=== PATIENT | male | born 1935 | race Caucasian/White ===

== ENCOUNTER 2016-09-30 10:42 | Inpatient (IN) | payer MEDICARE ==
[2016-09-30] MEDS ORDERED: RX INFO: IV CONTRAST WAS GIVEN 1 EACH MISC MISCELLANE PRN (11:09)
--- NOTE | 2016-09-30 11:14 | ED ---
General Adult HPI - General Chief complaint: Altered Mental Status Stated complaint: CONFUSION, UNABLE TO ANSWER PROPERLY Time Seen by Provider: 09/30/16 10:50 Source: family, RN notes reviewed Mode of arrival: wheelchair Limitations: no limitations - History of Present Illness Initial comments: This is a 80-year-old male presents emergency Department with a history of Parkinson's and TIAs. Patient had an onset of expressive aphasia approximately one hour prior to arrival. According to he was fine this morning when they went out to breakfast. However when they got home he was having a difficult time speaking and that remains at this time she also noticed that he was walking a little more off balance than normal kind of falling to one side a little. states she has notany facial droop patient denies any visual disturbance. Patient denies any chest pain palpitations difficulty breathing or shortness of breath per patient denies abdominal pain patient denies nausea vomiting or diarrhea per patient denies any recent fever chills or cough. Patient denies any recent injury or trauma. - Related Data Home Medications Medication Instructions Recorded Confirmed Carvedilol [Coreg] 25 mg PO BID 05/21/14 09/30/16 Cholecalciferol [Vitamin D3] 1,000 unit PO HS 05/21/14 09/30/16 Rosuvastatin Calcium [Crestor] 40 mg PO HS 05/21/14 09/30/16 Tamsulosin HCl [Flomax] 0.4 mg PO HS 05/21/14 09/30/16 cloNIDine HCL [Catapres] 0.05 mg PO BID 05/21/14 09/30/16 Famotidine [Pepcid] 20 mg PO HS 07/24/15 09/30/16 Montelukast [Singulair] 10 mg PO HS 09/19/15 09/30/16 [place]/APAP/Caf/Cod 52-150-09-30 2 cap PO Q4H PRN 08/20/16 09/30/16 [Fioricet w/Cod 44-518-88-30MG] Dorzolamide HCl/Timolol Maleat 1 drop LEFT EYE BID 08/20/16 09/30/16 [Cosopt Eye Drops] Krill/Om-3/Dha/Epa/Phospho/Ast 1 cap PO DAILY 08/20/16 09/30/16 [[place]-3 Krill Oil 300 mg Sfgl] Lactulose 10 gm PO BID PRN 08/20/16 09/30/16 Latanoprost [Xalatan 0.005%] 1 drop BOTH EYES HS 08/20/16 09/30/16 Loratadine [Claritin] 10 mg PO DAILY 08/20/16 09/30/16 Meloxicam [Mobic] 7.5 mg PO BID 08/20/16 09/30/16 Omeprazole 20 mg PO DAILY 08/20/16 09/30/16 Hydrochlorothiazide [Hydrodiuril] 25 mg PO DAILY 09/30/16 09/30/16 Losartan Potassium [Cozaar] 50 mg PO DAILY 09/30/16 09/30/16 Pramipexole [Mirapex] 1 mg PO BID 09/30/16 09/30/16 Previous Rx's Medication Instructions Recorded Bisacodyl [Dulcolax] 10 mg RECTAL DAILY PRN #20 supp 03/19/16 Clopidogrel [Plavix] 75 mg PO DAILY #30 tab 03/31/16 Melatonin 6 mg PO HS #60 tablet 03/31/16 Allergies Allergy/AdvReac Type Severity Reaction Status Date / Time oxycodone HCl AdvReac Nausea & Verified 09/30/16 11:29 [From OxyContin] Vomiting Review of Systems ROS Statement: Those systems with pertinent positive or pertinent negative responses have been documented in the HPI. ROS Other: All systems not noted in ROS Statement are negative. Past Medical History Past Medical History: Blood Disorder, Coronary Artery Disease (CAD), CVA/TIA, GERD/Reflux, Hypertension, Vascular Disorder Additional Past Medical History / Comment(s): migraines anemia BPH hypertension GERD coronary artery disease carotid stenosis migraines occipital neuralgia testis leg syndrome neuropathy History of Any Multi-Drug Resistant Organisms: None Reported Past Surgical History: Back Surgery, Heart Catheterization With Stent, Hernia Repair, Orthopedic Surgery Additional Past Surgical History / Comment(s): right knee replacement 06/19/15, both knees have been replaced Past Anesthesia/Blood Transfusion Reactions: No Reported Reaction Date of Last Stent Placement:: 2010 Past Psychological History: No Psychological Hx Reported Smoking Status: Never smoker Past Alcohol Use History: None Reported Past Drug Use History: None Reported - Past Family History Brother(s) Additional Family Medical History / Comment(s): Patient has 3 brothers with no major medical problems. Sister(s) Additional Family Medical History / Comment(s): Patient has 3 sisters that are all alive. 2 have high blood pressure. One has diabetes and stroke and is 81 years old. Son(s) Additional Family Medical History / Comment(s): Patient has 3 sons and one daughter with no major medical problems. Father Family Medical History: Myocardial Infarction ([place]) Additional Family Medical History / Comment(s): Father at age 73 with history of Parkinson's disease, bowel cancer, bone cancer. Mother Family Medical History: Myocardial Infarction ([place]) Additional Family Medical History / Comment(s): Mother at age 85 with history of hypertension and dementia. General Exam - General Exam Comments Initial Comments: GENERAL: Patient is well-developed and well-nourished. Patient is nontoxic and well- hydrated and is in no acute distress. ENT: Neck is soft and supple. No significant lymphadenopathy is noted. Oropharynx is clear. Moist mucous membranes. Neck has full range of motion without eliciting any pain. EYES: The sclera were anicteric and conjunctiva were pink and moist. Extraocular movements were intact and pupils were equal round and reactive to light. Eyelids were unremarkable. PULMONARY: Unlabored respirations. Good breath sounds bilaterally. No audible rales rhonchi or wheezing was noted. CARDIOVASCULAR: There is a regular rate and rhythm without any murmurs gallops or rubs. ABDOMEN: Soft and nontender with normal bowel sounds. No palpable organomegaly was noted. SKIN: Skin is clear with no lesions or rashes and otherwise unremarkable. NEUROLOGIC: Patient is alert and oriented unable to fully assess secondary to inability to speak but does appear to understand the questions. Cranial nerves II through XII are grossly intact. Motor and sensory are also intact. Patient has aphasia. Symmetrical smile. MUSCULOSKELETAL: Normal extremities with adequate strength and full range of motion. No lower extremity swelling or edema. No calf tenderness. LYMPHATICS: No significant lymphadenopathy is noted PSYCHIATRIC: Normal psychiatric evaluation. Normal interpersonal interactions appears functionally intact in deals appropriately with others. No signs of depression. No signs of anxiety. Limitations: no limitations Course Vital Signs 09/30/16 10:45 Temperature 97.3 F L Pulse Rate 66 Respiratory 18 Rate Blood Pressure 165/91 O2 Sat by Pulse 98 Oximetry Medical Decision Making - Medical Decision Making EKG shows normal sinus rhythm at 65 bpm. It was on an 82 QRS is 92 QT interval is 456 QTC is 474 per patient's EKG shows no ST segment elevation or depression or T-wave abdomen is noted. Computed tomography scan of the head showed no acute abnormality. CTA showed narrowing of the left internal carotid. Greater than 70% % which was increased from the last CTA I spoke with the neuro interventional states he did not want TPA at this time, the patient admitted he wanted cardiothoracic surgery on consult he wanted MRIs. I spoke with Dr. Chaudhry he agreed to admit the patient I wrote admitting orders - Lab Data Result diagrams: 09/30/16 11:10 09/30/16 11:10 Lab Results 09/30/16 09/30/16 09/30/16 Range/Units 11:10 11:10 11:10 WBC 3.7 L (3.8-10.6) k/uL RBC 4.03 L (4.30-5.90) m/uL Hgb 12.6 L (13.0-17.5) gm/dL Hct 37.0 L (39.0-53.0) % MCV 91.8 (80.0-100.0) fL MCH 31.2 (25.0-35.0) pg MCHC 34.0 (31.0-37.0) g/dL RDW 13.0 (11.5-15.5) % Plt Count 207 (150-450) k/uL Neutrophils % 61 % Lymphocytes % 24 % Monocytes % 8 % Eosinophils % 5 % Basophils % 1 % Neutrophils # 2.3 (1.3-7.7) k/uL Lymphocytes # 0.9 L (1.0-4.8) k/uL Monocytes # 0.3 (0-1.0) k/uL Eosinophils # 0.2 (0-0.7) k/uL Basophils # 0.0 (0-0.2) k/uL PT (9.0-12.0) sec INR (<1.1) APTT (22.0-30.0) sec Sodium 133 L (137-145) mmol/L Potassium 4.1 (3.5-5.1) mmol/L Chloride 98 (98-107) mmol/L Carbon Dioxide 24 (22-30) mmol/L Anion Gap 11 mmol/L BUN 22 H (9-20) mg/dL Creatinine 0.80 (0.66-1.25) mg/dL Est GFR (MDRD) Af Amer >60 (>60 ml/min/1.73 sqM) Est GFR (MDRD) Non-Af >60 (>60 ml/min/1.73 sqM) Glucose 107 H (74-99) mg/dL POC Glucose (mg/dL) (75-99) mg/dL POC Glu Horticultural Agent ID Calcium 9.3 (8.4-10.2) mg/dL Total Bilirubin 0.8 (0.2-1.3) mg/dL AST 26 (17-59) U/L ALT 31 (21-72) U/L Alkaline Phosphatase 103 (38-126) U/L Total Creatine Kinase 78 (55-170) U/L CK-MB (CK-2) 2.1 (0.0-2.4) ng/mL CK-MB (CK-2) Rel Index 2.7 Troponin I 0.012 (0.000-0.034) ng/mL Total Protein 6.3 (6.3-8.2) g/dL Albumin 3.8 (3.5-5.0) g/dL 09/30/16 09/30/16 Range/Units 11:10 11:34 WBC (3.8-10.6) k/uL RBC (4.30-5.90) m/uL Hgb (13.0-17.5) gm/dL Hct (39.0-53.0) % MCV (80.0-100.0) fL MCH (25.0-35.0) pg MCHC (31.0-37.0) g/dL RDW (11.5-15.5) % Plt Count (150-450) k/uL Neutrophils % % Lymphocytes % % Monocytes % % Eosinophils % % Basophils % % Neutrophils # (1.3-7.7) k/uL Lymphocytes # (1.0-4.8) k/uL Monocytes # (0-1.0) k/uL Eosinophils # (0-0.7) k/uL Basophils # (0-0.2) k/uL PT 11.2 (9.0-12.0) sec INR 1.1 (<1.1) APTT 24.9 (22.0-30.0) sec Sodium (137-145) mmol/L Potassium (3.5-5.1) mmol/L Chloride (98-107) mmol/L Carbon Dioxide (22-30) mmol/L Anion Gap mmol/L BUN (9-20) mg/dL Creatinine (0.66-1.25) mg/dL Est GFR (MDRD) Af Amer (>60 ml/min/1.73 sqM) Est GFR (MDRD) Non-Af (>60 ml/min/1.73 sqM) Glucose (74-99) mg/dL POC Glucose (mg/dL) 116 H (75-99) mg/dL POC Glu Horticultural Agent ID Branch, Marco Calcium (8.4-10.2) mg/dL Total Bilirubin (0.2-1.3) mg/dL AST (17-59) U/L ALT (21-72) U/L Alkaline Phosphatase (38-126) U/L Total Creatine Kinase (55-170) U/L CK-MB (CK-2) (0.0-2.4) ng/mL CK-MB (CK-2) Rel Index Troponin I (0.000-0.034) ng/mL Total Protein (6.3-8.2) g/dL Albumin (3.5-5.0) g/dL Critical Care Time Critical Care Time: Yes Total Critical Care Time: 35 Disposition Clinical Impression: CVA (cerebral vascular accident) Disposition: ADMITTED IP TO THIS [facility] Time of Disposition: 12:52
--- NOTE | 2016-09-30 11:35 | CT ---
EXAMINATION TYPE: CT brain wo con DATE OF EXAM: 09/30/2016 11:30 AM COMPARISON: 08/20/2016 INDICATION: Code Stroke DLP: 1047.10 mGycm, Automated exposure control for dose reduction was used. CONTRAST: None CT of the brain is performed utilizing 3 mm thick sections through the posterior fossa and 3 mm thick sections through the remaining calvarium. Study is performed within 24 hours of arrival to the hosp ital. No abnormal hyperdensity is present to suggest an acute intracranial hemorrhage. No mass lesion is evident. No acute infarcts are evident. There is periventricular white matter hypodensity compatible with patc hy chronic appearing white matter ischemic type changes. Ventricles and sulci are appropriate for the patient age. Paranasal sinuses and mastoid air cells within the [id number] are clear. IMPRESSIONS: 1. Atrophy with periventricular white matter ischemic changes. Exam appears stable from 08/20/2016.
[2016-09-30 11:36] LABS: Glucose,Whole Blood 116 mg/dL (75-99)
[2016-09-30 11:43] LABS: Basophils % (A) 1 %; CH 31.4; CHCM 34.4; Eosinophils # (A) 0.2 k/uL (0-0.7); Eosinophils % (A) 5 %; HGB 12.6 gm/dL (13.0-17.5); Luc # (Auto) 0.06; Luc % (Auto) 2; Lymphocytes # (A) 0.9 k/uL (1.0-4.8); Lymphocytes % (A) 24 %; MCH 31.2 pg (25.0-35.0); MCV 91.8 fL (80.0-100.0); Mean Platelet Volume 7.5; Monocytes # (A) 0.3 k/uL (0-1.0); Monocytes % (A) 8 %; Neutrophils # (A) 2.3 k/uL (1.3-7.7); Neutrophils % (A) 61 %; RBC 4.03 m/uL (4.30-5.90); WBC 3.7 k/uL (3.8-10.6); WBC (Perox) 3.91
[2016-09-30 11:58] LABS: INR 1.1 (<1.1)
[2016-09-30 11:59] LABS: Partial Thromboplastin Time 24.9 sec (22.0-30.0); Prothrombin Time 11.2 sec (9.0-12.0)
[2016-09-30] MEDS ORDERED: ACETAMINOPHEN IV (For NPO) 1,000 MG in SALINE 100 100ML.BAG IVPB STA (12:04)
--- NOTE | 2016-09-30 12:04 | CT ---
EXAMINATION TYPE: CT angio head neck DATE OF EXAM: 09/30/2016 11:57 AM COMPARISON: 03/29/2016 HISTORY: Neuro deficits, expressive aphasia CT DLP: 473.60 mGycm Automated exposure control for dose reduction was used. TECHNIQUE: Performed with IV Contrast, patient injected with 65 mL of Omnipaque 350. 3D reconstructed images are created on an independent workstation and reviewed.. FINDINGS: There is narrowing at the proximal right internal carotid artery. Based on the current measurements u tilizing NASCET criteria the degree of narrowing is estimated at 40%. There is milder narrowing at t he left internal carotid artery origin. Based on NASCET criteria the degree of narrowing appears to b e 20%. This however appears to be an underestimation based on the coronal reconstructed images. 3-D reconstructed images appear to have greater narrowing at the bifurcations. At the proximal right internal carotid artery this is estimated at 50% and at the left internal carotid artery origin there is a focal area measuring 72% narrowed. Vertebral arteries are patent. [place]: Vertebrobasilar system within the intracranial portion appears normal. Posterior ce rebral vasculature appears normal. The internal carotid arteries bifurcate normally into A1 and M1 se gments. A2 segments appear normal. Middle cerebral artery branches appear within normal limits. No ab rupt cut off is evident. The anterior communicating artery is patent. A 2 segments appear normal. IMPRESSION: 1. NARROWING OF THE PROXIMAL RIGHT INTERNAL CAROTID ARTERY APPROACHING 50%. CURRENT ESTIMATES APPEAR LESS THAN THE PRIOR EXAMINATION. 2. SIGNIFICANT , INCREASED NARROWING, AT THE PROXIMAL LEFT INTERNAL CAROTID ARTERY GREATER THAN 70% W HICH IS AN INCREASE FROM THE PRIOR STUDY. 3. [place] APPEARS WITHIN NORMAL LIMITS.
[2016-09-30] MEDS ORDERED: CLOPIDOGREL 75 MG TAB PO STA (12:19)
[2016-09-30] MEDS ORDERED: ATORVASTATIN 80 MG TAB PO STA (12:19)
[2016-09-30] MEDS ORDERED: ASPIRIN 325 MG TAB PO STA (12:19)
[2016-09-30 12:27] LABS: ALT 31 U/L (21-72); AST 26 U/L (17-59); Alkaline Phosphatase 103 U/L (38-126); Anion Gap 11 mmol/L; Blood Urea Nitrogen 22 mg/dL (9-20); Calcium 9.3 mg/dL (8.4-10.2); Carbon Dioxide 24 mmol/L (22-30); Chloride 98 mmol/L (98-107); Glucose 107 mg/dL (74-99); Non-African American GFR(MDRD) >60 (>60 ml/min/1.73 sqM); Potassium 4.1 mmol/L (3.5-5.1); Sodium 133 mmol/L (137-145); Total Bilirubin 0.8 mg/dL (0.2-1.3); Total Protein 6.3 g/dL (6.3-8.2)
[2016-09-30 12:39] LABS: Creatine Kinase MB 2.1 ng/mL (0.0-2.4); Troponin I 0.012 ng/mL (0.000-0.034)
--- NOTE | 2016-09-30 12:47 | XR ---
EXAMINATION TYPE: XR chest 2V DATE OF EXAM: 09/30/2016 12:39 PM COMPARISON: 03/29/2016 HISTORY: Altered mental status FINDINGS: The lungs are clear and there is no pneumothorax, pleural effusion, or focal pneumonia. Hypertrophi c and degenerative change of the spine noted. The heart is enlarged. Correlate for underlying COPD. Arthropathy of the shoulders seen. Rib cage def ormity in the left suggest remote trauma. IMPRESSION: 1. No acute process.
[2016-09-30] MEDS ORDERED: LACTULOSE 200 GM/300 ML (FROM 1/2 GAL JUG) PO PRN (13:23)
--- NOTE | 2016-09-30 13:23 | P.HPIM ---
History of Present Illness H&P Date: 09/30/16 Chief Complaint: Acute CVA. 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, patient was in his usual state of health until about today when he woke up in the morning was feeling fine and he took his to the general accountant and the stopped for breakfast together and went back home and patient was sitting and felt a bit weak went to lay down 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 Roa underwent CTA and computed tomography scan of the brain as well that showed a 70% stenosis of the left internal carotid artery the use the code stroke and utilized the telemedicine, was regular for patient not to pursue TPA at this point in time. He was given aspirin and he is scheduled to go for MRI of the brain with and without CAD. Patient will be admitted under our service neurology consultation will be obtained. Review of Systems Constitutional: Reports chronic headaches, Denies chills, Denies chronic pain, Denies lethargy, Denies malaise, Denies weakness, Denies weight gain, Denies weight loss Eyes: denies blurred vision, denies bulging eye, denies decreased vision, denies diplopia, denies discharge Ears: bilateral: decreased hearing Ears, nose, mouth and throat: Denies dysphagia, Denies neck lump, Denies swelling in throat, Denies sore throat Cardiovascular: Reports high blood pressure, Denies chest pain, Denies dyspnea on exertion, Denies phlebitis, Denies rapid heart beat, Denies shortness of breath, Denies syncope Respiratory: Denies congestion, Denies cough, Denies cough with sputum, Denies home oxygen, Denies sleep apnea, Denies snoring, Denies wheezing Gastrointestinal: Denies abdominal pain, Denies bloating, Denies BRBPR, Denies excessive gas, Denies melena, Denies nausea, Denies vomiting Genitourinary: Reports nocturia, Denies dysuria Musculoskeletal: Reports morning stiffness, Denies myalgias Musculoskeletal: absent: ankle pain, ankle stiffness, ankle swelling, elbow pain , elbow stiffness, elbow swelling, foot pain, foot stiffness, foot swelling, hand pain, hand stiffness, hand swelling, hip pain, hip stiffness, hip swelling , knee pain, knee stiffness, knee swelling, shoulder pain, shoulder stiffness, shoulder swelling, wrist pain, wrist stiffness, wrist swelling Integumentary: Denies pruritus, Denies rash Neurological: Denies numbness, Denies weakness Psychiatric: Denies anxiety, Denies depression Endocrine: Denies fatigue, Denies weight change Past Medical History Past Medical History: Blood Disorder, Coronary Artery Disease (CAD), CVA/TIA, GERD/Reflux, Hyperlipidemia, Hypertension, Neurologic Disorder, Osteoarthritis ( OA), Vascular Disorder Additional Past Medical History / Comment(s): migraines anemia BPH hypertension GERD coronary artery disease carotid stenosis migraines occipital neuralgia testis leg syndrome neuropathy History of Any Multi-Drug Resistant Organisms: None Reported Past Surgical History: Back Surgery, Heart Catheterization With Stent, Hernia Repair, Orthopedic Surgery Additional Past Surgical History / Comment(s): right knee replacement 06/19/15, both knees have been replaced, bilateral Surgery, EGD and colonoscopy 2010 and 2015, left heart catheterization with the PCI of the LAD 2012 Past Anesthesia/Blood Transfusion Reactions: No Reported Reaction Date of Last Stent Placement:: 2010 Past Psychological History: No Psychological Hx Reported Smoking Status: Never smoker Past Alcohol Use History: None Reported Past Drug Use History: None Reported - Past Family History Brother(s) Additional Family Medical History / Comment(s): Patient has 3 brothers with no major medical problems. Sister(s) Additional Family Medical History / Comment(s): Patient has 3 sisters that are all alive. 2 have high blood pressure. One has diabetes and stroke and is 81 years old. And all have history of tremors. Son(s) Additional Family Medical History / Comment(s): Patient has 3 sons and one daughter with no major medical problems. Father Family Medical History: Myocardial Infarction ([place]) Additional Family Medical History / Comment(s): Father at age 73 with history of Parkinson's disease, bowel cancer, bone cancer. Mother Family Medical History: Myocardial Infarction ([place]) Additional Family Medical History / Comment(s): Mother at age 85 with history of hypertension and dementia. Medications and Allergies Home Medications Medication Instructions Recorded Confirmed Type Carvedilol [Coreg] 25 mg PO BID 05/21/14 09/30/16 History Cholecalciferol [Vitamin D3] 1,000 unit PO HS 05/21/14 09/30/16 History Rosuvastatin Calcium [Crestor] 40 mg PO HS 05/21/14 09/30/16 History Tamsulosin HCl [Flomax] 0.4 mg PO HS 05/21/14 09/30/16 History cloNIDine HCL [Catapres] 0.05 mg PO BID 05/21/14 09/30/16 History Famotidine [Pepcid] 20 mg PO HS 07/24/15 09/30/16 History Montelukast [Singulair] 10 mg PO HS 09/19/15 09/30/16 History Buta/APAP/Caf/Cod 64-553-25-30 2 cap PO Q4H PRN 08/20/16 09/30/16 History [Fioricet w/Cod 36-706-08-30MG] Dorzolamide HCl/Timolol Maleat 1 drop LEFT EYE BID 08/20/16 09/30/16 History [Cosopt Eye Drops] Krill/Om-3/Dha/Epa/Phospho/Ast 1 cap PO DAILY 08/20/16 09/30/16 History [[place]-3 Krill Oil 300 mg Sfgl] Lactulose 10 gm PO BID PRN 08/20/16 09/30/16 History Latanoprost [Xalatan 0.005%] 1 drop BOTH EYES HS 08/20/16 09/30/16 History Loratadine [Claritin] 10 mg PO DAILY 08/20/16 09/30/16 History Meloxicam [Mobic] 7.5 mg PO BID 08/20/16 09/30/16 History Omeprazole 20 mg PO DAILY 08/20/16 09/30/16 History Hydrochlorothiazide [Hydrodiuril] 25 mg PO DAILY 09/30/16 09/30/16 History Losartan Potassium [Cozaar] 50 mg PO DAILY 09/30/16 09/30/16 History Pramipexole [Mirapex] 1 mg PO BID 09/30/16 09/30/16 History Allergies Allergy/AdvReac Type Severity Reaction Status Date / Time oxycodone HCl AdvReac Nausea & Verified 09/30/16 11:29 [From OxyContin] Vomiting Physical Exam - Constitutional General appearance: no acute distress, obese - EENT Eyes: anicteric sclerae, PERRLA, no ptosis, no scleral icterus, normal appearance ENT: hard of hearing, normal oropharynx, no thrush Ears: bilateral: normal - Neck Neck: no lymphadenopathy, normal ROM, no rigidity, no stridor, no thyromegaly Carotids: bilateral: upstroke delayed Thyroid: bilateral: normal size - Respiratory Respiratory: bilateral: diminished, negative: dullness, rales, rhonchi, wheezing , prolonged expiration, prolonged inspiration - Cardiovascular Rhythm: regular Heart sounds: normal: S1, S2 Abnormal Heart Sounds: no systolic murmur, no S3 Gallop, no S4 Gallop, no click - Gastrointestinal General gastrointestinal: normal bowel sounds, soft, no splenomegaly, no tenderness, no umbilical hernia, no ventral hernia - Genitourinary Male genitourinary: enlarged prostate - Integumentary Integumentary: normal, normal turgor - Neurologic Neurologic: CNII-XII intact - Musculoskeletal Musculoskeletal: gait normal, generalized weakness, strength equal bilaterally - Psychiatric Psychiatric: A&O x's 3, appropriate affect, intact judgment & insight Results CBC & Chem 7: 09/30/16 11:10 09/30/16 11:10 Thrombosis Risk Factor Assmnt - DVT/VTE Prophylaxis DVT/VTE Prophylaxis: Pharmacologic Prophylaxis ordered, Mechanical Prophylaxis ordered Assessment and Plan Plan: Assessment and plan: 1. Acute TIA/CVA. Telemetry, neuro check every 2 hours for the next 24 hours, CTA did show left internal carotid artery stenosis by 70%, aspirin 81 mg once every day, Plavix any 5 mg orally once every day, echo care gram, neurology consultation from Dr. Ayon. MRI of the brain with and without gadolinium. 2. CAD post-PCI of the LAD. Continue Coreg 25 mg orally twice every day, Plavix 75 mg orally once every day, Crestor 40 mg orally once every day. 3. Hypertension and hypertensive cardiovascular disease. Continue patient on losartan 50 mg orally once every day, HCTZ 25 mg orally once every day, Coreg 25 mg orally twice every day and clonidine 0.1 mg orally twice every day. 4. Hyperlipidemia. Continue Crestor 40 mg orally once every day. 5. Migraine headache. Continue with Fioricet with codeine. 6. Parkinson. Continue Mirapex 0.5 mg orally twice every day. 7. Enlarged prostate. Continue Flomax 0.4 g orally once every day. 8. Recurrent syncope. Possibly related to autonomic dysfunction. 9. Osteoarthritis post bilateral total knee arthroplasties. Discontinue Mobic. 10. Gastritis. Continue omeprazole 20 mg orally once every day. 11. DVT prophylaxis. Lovenox 40 mg subcutaneously every 24 hours. 12. GI prophylaxis. Continue Protonix 40 mg orally once every day. 13. Admit to inpatient. Estimate a length of stay 2 midnights. 14. Full code.
[2016-09-30] MEDS ORDERED: MORPHINE SULFATE 4 MG/ML SYRINGE IVP STA (13:26)
[2016-09-30] MEDS: SODIUM CHLORIDE 0.9% 1,000 ML IV SCH (13:29)
--- NOTE | 2016-09-30 15:17 | MR ---
EXAMINATION TYPE: MR brain wo/w con DATE OF EXAM: 09/30/2016 3:05 PM COMPARISON: 03/31/2016 HISTORY: Confusion, left sided weakness CONTRAST: Performed utilizing 20 mL intravenous MultiHance gadolinium contrast. TECHNIQUE: Multiplanar, multiecho imaging on a 3.0 [place] magnet is performed through the brain. Stud y is performed within 24 hours of arrival to the hospital. The craniovertebral junction is normal. The pituitary is normal. Diffusion-weighted imaging is performed. No abnormal hyperintensity is present to suggest an acute i ntracranial infarct or acute ischemic change. There are confluent periventricular white matter hyperintensities, compatible with chronic white genesis er ischemic changes. Some white matter change may be within the brainstem. Some perivascular changes may be present within the bilateral basal ganglion. Ventricles and sulci are somewhat prominent for the patient age. No abnormal enhancement is evident. IMPRESSIONS: 1. Chronic confluent periventricular white matter ischemic type changes. 2. No acute ischemic changes evident. 3. Examination is stable from March 2016
[2016-09-30] MEDS: BUTA/APAP/CAF/COD 50-325-40-30 CAP PO PRN ×2 (16:11→20:13)
[2016-09-30] MEDS: CARVEDILOL 12.5 MG TAB PO SCH (17:36)
--- NOTE | 2016-09-30 19:48 | P.CNNES ---
History of Present Illness Consult date: 09/30/16 Reason for Consult: Patient with possible stroke vs. TIA. History of Present Illness: This patient is a 80-year-old right-handed white male who was in his usual state of health until early today. He was at home and when he had gone into the kitchen area he was noticing he was having difficulty getting his words out. He was able to call for his who immediately came to us assistance. Apparently he was having evidence of expressive aphasia. He knew what he wanted to say but the words just were not coming out. He told his he felt something was just not right and wanted to go to the hospital. Patient was brought to the emergency room where he was evaluated in the ER by Dr. Roa. He underwent a code stroke evaluation and his NIH stroke scale was noted to be 2.0. His speech slowly did improve in the ER. The overall time frame for the evidence of expressive aphasia by the patient was about 1-2 hours duration. He was sent for a computed tomography scan of the brain which was negative for any evidence of acute stroke. Chronic white matter ischemic changes were noted. He underwent a CTA angiogram which revealed 70% stenosis of the left ICA and 50 % of the right ICA. The patient was evaluated by the neuro interventional us via the telemedicine robot. The computed tomography scan of the head and CTA results were reviewed by them. He was felt by the interventional neurologist not to be a TPA candidate. He was recommended to undergo MRI of the brain. MRI of the brain was completed today and reveals chronic complaint fluent white matter ischemic changes. No acute stroke was evident. MRI was stable compared to previous study done in March 2016. Patient has had no further recurrence of expressive aphasia. His clinical history is very consistent with TIA. We have recommended a vascular surgery consultation for evaluation of the CTA angiogram results. He has been taking Plavix on a regular basis 75 mg daily. We would recommend dual platelet therapy for him given this recent TIA and should combine the Plavix with one baby aspirin 81 mg daily. Patient states he is feeling much better since coming to the hospital. He has had no further recurrence of his speech impairment. He does have multiple other medical problems including history of Parkinson's disease and migraine headaches. He has been on treatment for both of these conditions as well. His neurological examination at this time is nonfocal. Neurology is now been consulted for further evaluation and recommendations. Review of Systems Constitutional: Denies chills, Denies fever Eyes: denies blurred vision, denies pain Ears, nose, mouth and throat: Denies headache, Denies sore throat Cardiovascular: Denies chest pain, Denies shortness of breath Respiratory: Denies cough Gastrointestinal: Denies abdominal pain, Denies diarrhea, Denies nausea, Denies vomiting Musculoskeletal: Denies myalgias Integumentary: Denies pruritus, Denies rash Neurological: Reports aphasia, Reports change in mentation, Reports change in speech, Reports headaches, Reports migraines, Denies numbness, Denies weakness Psychiatric: Denies anxiety, Denies depression Endocrine: Denies fatigue, Denies weight change Past Medical History Past Medical History: Blood Disorder, Coronary Artery Disease (CAD), Cancer, Chest Pain / Angina, CVA/TIA, GERD/Reflux, Hyperlipidemia, Hypertension, Neurologic Disorder, Osteoarthritis (OA), Syncope, Vascular Disorder Additional Past Medical History / Comment(s): migraines anemia BPH hypertension GERD coronary artery disease carotid stenosis migraines occipital uti,neuralgia RESTLESS leg syndrome, neuropathy.parkinsons,prostate cancer -had chemo- radiation,stroke 2005 and tia's x5,stress test 09-30-15,kidney stones, had pne vaccine after age 66 not sure of date. History of Any Multi-Drug Resistant Organisms: None Reported Past Surgical History: Back Surgery, Heart Catheterization With Stent, Hernia Repair, Orthopedic Surgery Additional Past Surgical History / Comment(s): right knee replacement 06/19/15, both knees have been replaced, bilateral Surgery, EGD and colonoscopy 2010 and 2015, left heart catheterization with the PCI of the LAD 2012,colonoscopy/egd, supraorbtal nerve percutaneous nerve stimulator trial 09-21-12,[facility] prostate bx,laser vaporization for prostate cancer, epidural steroid inj 2012 Past Anesthesia/Blood Transfusion Reactions: No Reported Reaction Date of Last Stent Placement:: 2010 Past Psychological History: No Psychological Hx Reported Smoking Status: Never smoker Past Alcohol Use History: None Reported Past Drug Use History: None Reported - Past Family History Brother(s) Additional Family Medical History / Comment(s): Patient has 3 brothers with no major medical problems. Sister(s) Additional Family Medical History / Comment(s): Patient has 3 sisters that are all alive. 2 have high blood pressure. One has diabetes and stroke and is 81 years old. And all have history of tremors. Son(s) Additional Family Medical History / Comment(s): Patient has 3 sons and one daughter with no major medical problems. Father Family Medical History: Myocardial Infarction ([place]) Additional Family Medical History / Comment(s): Father at age 73 with history of Parkinson's disease, bowel cancer, bone cancer. Mother Family Medical History: Myocardial Infarction ([place]) Additional Family Medical History / Comment(s): Mother at age 85 with history of hypertension and dementia. Medications and Allergies Home Medications Medication Instructions Recorded Confirmed Type Carvedilol [Coreg] 25 mg PO BID 05/21/14 09/30/16 History Cholecalciferol [Vitamin D3] 1,000 unit PO HS 05/21/14 09/30/16 History Rosuvastatin Calcium [Crestor] 40 mg PO HS 05/21/14 09/30/16 History Tamsulosin HCl [Flomax] 0.4 mg PO HS 05/21/14 09/30/16 History cloNIDine HCL [Catapres] 0.05 mg PO BID 05/21/14 09/30/16 History Famotidine [Pepcid] 20 mg PO HS 07/24/15 09/30/16 History Montelukast [Singulair] 10 mg PO HS 09/19/15 09/30/16 History Buta/APAP/Caf/Cod 65-587-97-30 2 cap PO Q4H PRN 08/20/16 09/30/16 History [Fioricet w/Cod 99-043-51-30MG] Dorzolamide HCl/Timolol Maleat 1 drop LEFT EYE BID 08/20/16 09/30/16 History [Cosopt Eye Drops] Krill/Om-3/Dha/Epa/Phospho/Ast 1 cap PO DAILY 08/20/16 09/30/16 History [[place]-3 Krill Oil 300 mg Sfgl] Lactulose 10 gm PO BID PRN 08/20/16 09/30/16 History Latanoprost [Xalatan 0.005%] 1 drop BOTH EYES HS 08/20/16 09/30/16 History Loratadine [Claritin] 10 mg PO DAILY 08/20/16 09/30/16 History Meloxicam [Mobic] 7.5 mg PO BID 08/20/16 09/30/16 History Omeprazole 20 mg PO DAILY 08/20/16 09/30/16 History Hydrochlorothiazide [Hydrodiuril] 25 mg PO DAILY 09/30/16 09/30/16 History Losartan Potassium [Cozaar] 50 mg PO DAILY 09/30/16 09/30/16 History Pramipexole [Mirapex] 1 mg PO BID 09/30/16 09/30/16 History Allergies Allergy/AdvReac Type Severity Reaction Status Date / Time oxycodone HCl AdvReac Nausea & Verified 09/30/16 11:29 [From OxyContin] Vomiting Physical Examination - Vital Signs Vital Signs: Vital Signs Temp Pulse Pulse Resp BP BP Pulse Ox 09/30/16 15:52 96.9 F L 67 17 190/89 96 09/30/16 15:09 178/94 09/30/16 15:05 97.5 F L 65 18 98 09/30/16 13:30 63 18 166/79 97 09/30/16 13:15 63 18 178/81 97 09/30/16 13:10 62 18 170/92 99 09/30/16 13:00 60 18 201/96 99 - Constitutional General appearance: average body habitus, cooperative - EENT EENT: PERRL, mucous membranes moist - Respiratory Respiratory: lungs clear, normal breath sounds - Cardiovascular Cardiovascular: regular rate, normal S1, normal S2 Extremities: no peripheral edema bilaterally - Gastrointestinal Gastrointestinal: normoactive bowel sounds - Integumentary Integumentary: normal - Neurologic Cranial nerve examination: PERRL, EOMI, V1/V2/V3 grossly intact, face symmetric , intact gag reflex, intact corneal reflex, normal palatal elevation Speech examination: intact Sensorimotor examination: intact Detailed motor examination: grossly full strength in all extremities Motor examination - right side: 5/5: biceps, triceps, wrist flexion, wrist extension, promotions officer, hip flexors, knee extensors, dorsiflexion, toe extension (EHL) , plantarflexion Motor examination - left side: 5/5: biceps, triceps, wrist flexion, wrist extension, promotions officer, hip flexors, knee extensors, dorsiflexion, toe extension (EHL) , plantarflexion Detailed sensory examination: intact Reflex and gait examination: intact Reflexes: 1+: ankle, bicep, knee, tricep - Musculoskeletal Musculoskeletal: no pain - Psychiatric Psychiatric: mood/affect appropriate, cooperative Results - Laboratory Findings CBC and BMP: 09/30/16 11:10 09/30/16 11:10 Assessment and Plan (1) TIA (transient ischemic attack) Status: Acute Code(s): G45.9 - TRANSIENT CEREBRAL ISCHEMIC ATTACK, UNSPECIFIED (2) Expressive aphasia Status: Acute Code(s): R47.01 - APHASIA (3) Parkinsons disease Status: Acute Code(s): G20 - PARKINSON'S DISEASE (4) Migraine headache Status: Acute Code(s): G43.909 - MIGRAINE, UNSP, NOT INTRACTABLE, WITHOUT STATUS MIGRAINOSUS Plan: This patient is a 80-year-old male admitted with acute episode of expressive aphasia. Entire episode lasted about 2 hours with complete resolution. He was brought into the emergency room at [facility] for further evaluation. He was seen in the ER by Dr. Roa. He underwent NIH stroke scale which was noted to be 2.0. Interventional neurology was contacted via the telemedicine robot. Computed tomography scan of the brain was negative for acute changes. CTA angiogram showed 70% stenosis of the left ICA. Patient was felt not to be a TPA candidate and was admitted to Hospital. His neurological examination at this time is nonfocal. This patient's clinical history is consistent with left hemispheric TIA. We have reviewed the CTA angiogram results with the patient today in detail. We would recommend vascular surgery consultation for further evaluation. Would recommend dual platelet therapy for this patient to combine Plavix 75 mg daily with one baby aspirin for secondary stroke prevention. We'll await further recommendations from vascular surgery. His overall prognosis at this time remains very guarded. We will continue close neurological follow-up for the patient during this admission. Time with Patient: Greater than 30
[2016-09-30] MEDS: cloNIDine HCL 0.1 MG TAB PO SCH (20:10)
[2016-09-30] MEDS: DORZOLAMIDE-TIMOLOL 2-0.5% DROPS 10 ML BTL LEFT EYE SCH (20:11)
[2016-09-30] MEDS: PRAMIPEXOLE 1 MG TAB PO SCH (20:11)
[2016-09-30] MEDS ORDERED: MELATONIN 3 MG TABLET PO SCH (21:00)
[2016-09-30] MEDS ORDERED: TAMSULOSIN 0.4 MG CAP.ER.24H PO SCH (21:00)
[2016-09-30] MEDS ORDERED: FAMOTIDINE 20 MG TAB PO SCH (21:00)
[2016-09-30] MEDS ORDERED: CHOLECALCIFEROL 1,000 UNIT TAB PO SCH (21:00)
[2016-09-30] MEDS ORDERED: MONTELUKAST 10 MG TAB PO SCH (21:00)
[2016-09-30] MEDS ORDERED: ATORVASTATIN 80 MG TAB PO SCH (21:00)
[2016-09-30] MEDS ORDERED: LATANOPROST 0.005% OPHTH DROPS 2.5 ML BTL BOTH EYES SCH (21:00)
--- NOTE | 2016-09-30 21:43 | US ---
EXAMINATION TYPE: US carotid duplex BILAT DATE OF EXAM: 09/30/2016 9:15 PM COMPARISON: Previous exam dated 30 March 2016 CLINICAL HISTORY: TIA x yesterday, carotid stenosis. EXAM MEASUREMENTS: RIGHT: Peak Systolic Velocity (PSV) cm/sec ----- Right CCA: 63.6 ----- Right ICA: 77.5 ----- Right ECA: 85.3 ICA/CCA ratio: 1.2 RIGHT: End Diastole cm/sec ----- Right CCA: 20.8 ----- Right ICA: 30.9 ----- Right ECA: 15.4 LEFT: Peak Systolic Velocity (PSV) cm/sec ----- Left CCA: 66.9 ----- Left ICA: 86.4 ----- Left ECA: 70.2 ICA/CCA ratio: 1.3 LEFT: End Diastole cm/sec ----- Left CCA: 25.2 ----- Left ICA: 29.2 ----- Left ECA: 12.0 VERTEBRALS (direction of flow): Right Vertebral: Antegrade Left Vertebral: Antegrade Bilateral wall thickening. No significant stenosis or elevated velocities seen. Plaque seen in left bulb extending into ICA. Plaque seen in right ECA. Grayscale, color Doppler, spectral Doppler imaging performed of the carotid arteries. IMPRESSION: No hemodynamic significant stenosis of the proximal internal carotid arteries bilaterally by Doppler criteria, and indirect measurement of carotid stenosis
[2016-10-01] MEDS: SODIUM CHLORIDE 0.9% 1,000 ML IV SCH ×2 (00:23→09:37)
[2016-10-01] MEDS: BUTA/APAP/CAF/COD 50-325-40-30 CAP PO PRN ×3 (00:23→13:25)
[2016-10-01] MEDS: CARVEDILOL 12.5 MG TAB PO SCH ×2 (06:19→16:39)
[2016-10-01 06:22] LABS: Basophils % (A) 1 %; CH 30.5; CHCM 32.4; Eosinophils # (A) 0.3 k/uL (0-0.7); Eosinophils % (A) 11 %; HDW 2.36; HGB 11.4 gm/dL (13.0-17.5); Luc # (Auto) 0.11; Luc % (Auto) 4; Lymphocytes # (A) 0.6 k/uL (1.0-4.8); Lymphocytes % (A) 21 %; MCH 30.8 pg (25.0-35.0); MCHC 32.6 g/dL (31.0-37.0); MCV 94.5 fL (80.0-100.0); Mean Platelet Volume 6.5; Monocytes # (A) 0.2 k/uL (0-1.0); Monocytes % (A) 9 %; Neutrophils # (A) 1.4 k/uL (1.3-7.7); Neutrophils % (A) 53 %; RDW 12.7 % (11.5-15.5); WBC 2.6 k/uL (3.8-10.6); WBC (Perox) 2.66
[2016-10-01 06:34] LABS: ALT 32 U/L (21-72); AST 21 U/L (17-59); Alkaline Phosphatase 86 U/L (38-126); Anion Gap 10 mmol/L; Blood Urea Nitrogen 17 mg/dL (9-20); Calcium 9.1 mg/dL (8.4-10.2); Carbon Dioxide 24 mmol/L (22-30); Chloride 103 mmol/L (98-107); Cholesterol 168 mg/dL (<200); Glucose 107 mg/dL (74-99); HDL Cholesterol 53 mg/dL (40-60); Non-African American GFR(MDRD) >60 (>60 ml/min/1.73 sqM); Potassium 4.2 mmol/L (3.5-5.1); Sodium 137 mmol/L (137-145); Total Bilirubin 0.6 mg/dL (0.2-1.3); Total Protein 5.5 g/dL (6.3-8.2); Triglycerides 100 mg/dL (<150)
[2016-10-01] MEDS ORDERED: PANTOPRAZOLE 40 MG TABLET PO SCH (07:30)
[2016-10-01] MEDS ORDERED: ASPIRIN 81 MG CHEW PO SCH (09:00)
[2016-10-01] MEDS ORDERED: HYDROCHLOROTHIAZIDE 50 MG TAB PO SCH (09:00)
[2016-10-01] MEDS ORDERED: ENOXAPARIN 40 MG/0.4 ML SYRINGE SQ SCH (09:00)
[2016-10-01] MEDS ORDERED: CLOPIDOGREL 75 MG TAB PO SCH (09:00)
[2016-10-01] MEDS ORDERED: LORATADINE 10 MG TAB PO SCH (09:00)
[2016-10-01] MEDS ORDERED: LOSARTAN 50 MG TAB PO SCH (09:00)
[2016-10-01] MEDS: cloNIDine HCL 0.1 MG TAB PO SCH (09:35)
[2016-10-01] MEDS: DORZOLAMIDE-TIMOLOL 2-0.5% DROPS 10 ML BTL LEFT EYE SCH (09:35)
[2016-10-01] MEDS: PRAMIPEXOLE 1 MG TAB PO SCH (09:36)
--- NOTE | 2016-10-01 09:53 | P.GSCN ---
History of Present Illness Consult date: 10/01/16 Reason for Consult: Carotid stenosis. Requesting physician: Onofre Chaudhry History of present illness: This is 80-year-old male with a previous history of this CAD with stent placement, hypertension, TIA/CVA, migraines, prostate cancer with chemo and radiation, Parkinson's disease, who presented from home after a period dysarthria and weakness. He states he also had a migraine-like headache but this was much worse. He denied any dizziness, chest pain, shortness of breath, and his dysarthria resolved while in the emergency room. While in the ER he did have CT of the brain as well as a CTA demonstrating 70% stenosis of the left internal carotid artery. A code stroke was called and interventional neurology felt the patient was not a candidate for TPA. He also had an MRI of the brain while in the ER. Neurology was consulted, and Dr. Marlow was consulted for carotid stenosis. Review of Systems Review of systems negative except as noted - Constitutional Reports fatigue - EENT Eyes: denies blurred vision, denies loss of vision Ears, nose, mouth and throat: Reports headache - Cardiovascular Cardiovascular Comment(s): Denies chest pain, shortness of breath, irregular heartbeat. - Gastrointestinal Gastrointestinal Comment(s): Denies abdominal pain. Tolerating diet. - Neurological Reports as per HPI, Reports aphasia, Reports headaches, Reports migraines Past Medical History Past Medical History: Blood Disorder, Coronary Artery Disease (CAD), Cancer, Chest Pain / Angina, CVA/TIA, GERD/Reflux, Hyperlipidemia, Hypertension, Neurologic Disorder, Osteoarthritis (OA), Syncope, Vascular Disorder Additional Past Medical History / Comment(s): migraines anemia BPH hypertension GERD coronary artery disease carotid stenosis migraines occipital uti,neuralgia RESTLESS leg syndrome, neuropathy.parkinsons,prostate cancer -had chemo- radiation,stroke 2005 and tia's x5,stress test 09-30-15,kidney stones, had pne vaccine after age 66 not sure of date. History of Any Multi-Drug Resistant Organisms: None Reported Past Surgical History: Back Surgery, Heart Catheterization With Stent, Hernia Repair, Orthopedic Surgery Additional Past Surgical History / Comment(s): right knee replacement 06/19/15, both knees have been replaced, bilateral Surgery, EGD and colonoscopy 2010 and 2015, left heart catheterization with the PCI of the LAD 2012,colonoscopy/egd, supraorbtal nerve percutaneous nerve stimulator trial 09-21-12,[facility] prostate bx,laser vaporization for prostate cancer, epidural steroid inj 2012 Past Anesthesia/Blood Transfusion Reactions: No Reported Reaction Date of Last Stent Placement:: 2010 Past Psychological History: No Psychological Hx Reported Smoking Status: Never smoker Past Alcohol Use History: None Reported Past Drug Use History: None Reported - Past Family History Brother(s) Additional Family Medical History / Comment(s): Patient has 3 brothers with no major medical problems. Sister(s) Additional Family Medical History / Comment(s): Patient has 3 sisters that are all alive. 2 have high blood pressure. One has diabetes and stroke and is 81 years old. And all have history of tremors. Son(s) Additional Family Medical History / Comment(s): Patient has 3 sons and one daughter with no major medical problems. Father Family Medical History: Myocardial Infarction ([place]) Additional Family Medical History / Comment(s): Father at age 73 with history of Parkinson's disease, bowel cancer, bone cancer. Mother Family Medical History: Myocardial Infarction ([place]) Additional Family Medical History / Comment(s): Mother at age 85 with history of hypertension and dementia. Medications and Allergies Home Medications Medication Instructions Recorded Confirmed Type Carvedilol [Coreg] 25 mg PO BID 05/21/14 09/30/16 History Cholecalciferol [Vitamin D3] 1,000 unit PO HS 05/21/14 09/30/16 History Rosuvastatin Calcium [Crestor] 40 mg PO HS 05/21/14 09/30/16 History Tamsulosin HCl [Flomax] 0.4 mg PO HS 05/21/14 09/30/16 History cloNIDine HCL [Catapres] 0.05 mg PO BID 05/21/14 09/30/16 History Famotidine [Pepcid] 20 mg PO HS 07/24/15 09/30/16 History Montelukast [Singulair] 10 mg PO HS 09/19/15 09/30/16 History Buta/APAP/Caf/Cod 50-241-16-30 2 cap PO Q4H PRN 08/20/16 09/30/16 History [Fioricet w/Cod 84-015-14-30MG] Dorzolamide HCl/Timolol Maleat 1 drop LEFT EYE BID 08/20/16 09/30/16 History [Cosopt Eye Drops] Krill/Om-3/Dha/Epa/Phospho/Ast 1 cap PO DAILY 08/20/16 09/30/16 History [[place]-3 Krill Oil 300 mg Sfgl] Lactulose 10 gm PO BID PRN 08/20/16 09/30/16 History Latanoprost [Xalatan 0.005%] 1 drop BOTH EYES HS 08/20/16 09/30/16 History Loratadine [Claritin] 10 mg PO DAILY 08/20/16 09/30/16 History Meloxicam [Mobic] 7.5 mg PO BID 08/20/16 09/30/16 History Omeprazole 20 mg PO DAILY 08/20/16 09/30/16 History Hydrochlorothiazide [Hydrodiuril] 25 mg PO DAILY 09/30/16 09/30/16 History Losartan Potassium [Cozaar] 50 mg PO DAILY 09/30/16 09/30/16 History Pramipexole [Mirapex] 1 mg PO BID 09/30/16 09/30/16 History Allergies Allergy/AdvReac Type Severity Reaction Status Date / Time oxycodone HCl AdvReac Nausea & Verified 09/30/16 11:29 [From OxyContin] Vomiting Surgical - Exam Vital Signs Temp Pulse Resp BP Pulse Ox 97.3 F L 66 18 165/91 98 09/30/16 10:45 09/30/16 10:45 09/30/16 10:45 09/30/16 10:45 09/30/16 10:45 - General Migraine-like headache remains, but patient states it is better. well developed, moderate pain - Eyes PERRL - ENT normal mucosa - Neck no masses, no bruits, trachea midline thyroid nodule: absent, carotid bruit: absent - Respiratory normal expansion, normal respiratory effort, clear to auscultation - Cardiovascular Normal sinus rhythm on the monitor Rhythm: regular Heart Sounds: normal: S1, S2 Abnormal Heart Sounds: no systolic murmur, no diastolic murmur, no rub, no S3 Gallop, no S4 Gallop, no click, no other - Abdomen Abdomen: soft, non tender, bowel sounds - Genitourinary Deferred - Rectum Deferred - Integumentary no rash, no growths - Neurologic normal coordination, normal sensation - Musculoskeletal normal gait - Psychiatric oriented to time, oriented to person Results - Labs 10/01/16 05:37 10/01/16 05:37 Abnormal Lab Results - Last 24 Hours (Table) 10/01/16 10/01/16 Range/Units 05:37 05:37 WBC 2.6 L (3.8-10.6) k/uL RBC 3.70 L (4.30-5.90) m/uL Hgb 11.4 L (13.0-17.5) gm/dL Hct 35.0 L (39.0-53.0) % Lymphocytes # 0.6 L (1.0-4.8) k/uL Glucose 107 H (74-99) mg/dL Total Protein 5.5 L (6.3-8.2) g/dL Albumin 3.2 L (3.5-5.0) g/dL Diabetes panel 10/01/16 Range/Units 05:37 Sodium 137 (137-145) mmol/L Potassium 4.2 (3.5-5.1) mmol/L Chloride 103 (98-107) mmol/L Carbon Dioxide 24 (22-30) mmol/L BUN 17 (9-20) mg/dL Creatinine 0.83 (0.66-1.25) mg/dL Glucose 107 H (74-99) mg/dL Calcium 9.1 (8.4-10.2) mg/dL AST 21 (17-59) U/L ALT 32 (21-72) U/L Alkaline Phosphatase 86 (38-126) U/L Total Protein 5.5 L (6.3-8.2) g/dL Albumin 3.2 L (3.5-5.0) g/dL Triglycerides 100 (<150) mg/dL HDL Cholesterol 53 (40-60) mg/dL Calcium panel 10/01/16 Range/Units 05:37 Calcium 9.1 (8.4-10.2) mg/dL Albumin 3.2 L (3.5-5.0) g/dL Pituitary panel 10/01/16 Range/Units 05:37 Sodium 137 (137-145) mmol/L Potassium 4.2 (3.5-5.1) mmol/L Chloride 103 (98-107) mmol/L Carbon Dioxide 24 (22-30) mmol/L BUN 17 (9-20) mg/dL Creatinine 0.83 (0.66-1.25) mg/dL Glucose 107 H (74-99) mg/dL Calcium 9.1 (8.4-10.2) mg/dL Adrenal panel 10/01/16 Range/Units 05:37 Sodium 137 (137-145) mmol/L Potassium 4.2 (3.5-5.1) mmol/L Chloride 103 (98-107) mmol/L Carbon Dioxide 24 (22-30) mmol/L BUN 17 (9-20) mg/dL Creatinine 0.83 (0.66-1.25) mg/dL Glucose 107 H (74-99) mg/dL Calcium 9.1 (8.4-10.2) mg/dL Total Bilirubin 0.6 (0.2-1.3) mg/dL AST 21 (17-59) U/L ALT 32 (21-72) U/L Alkaline Phosphatase 86 (38-126) U/L Total Protein 5.5 L (6.3-8.2) g/dL Albumin 3.2 L (3.5-5.0) g/dL - Imaging Additional studies: CTA reviewed. Assessment and Plan (1) Carotid stenosis Status: Acute (2) CVA (cerebral vascular accident) Status: Acute (3) Migraine headache Status: Acute (4) Cephalgia Status: Acute Plan: 1. Continue aspirin, Plavix, statin. 2. Maintain blood pressure control using Coreg, Cozaar. 3. Continue neuro checks. 4. Results of CTA and carotid Dopplers reviewed, will review plan with Dr. Pablo/Dr. Mendez. 5. Continue GI /DVT prophylaxis. Time with Patient: Greater than 30
--- NOTE | 2016-10-01 10:43 | ECHOF ---
Referral Reason:CVA MEASUREMENTS -------- HEIGHT: 165.1 cm WEIGHT: 96.2 kg BP: 149/79 RVIDd: 3.7 cm (< 3.3) IVSd: 1.4 cm (0.6 - 1.1) LVIDd: 4.5 cm (3.9 - 5.3) LVPWd: 1.3 cm (0.6 - 1.1) IVSs: 1.7 cm LVIDs: 3.0 cm LVPWs: 1.6 cm LA Diam: 4.7 cm (2.7 - 3.8) LAESV Index (A-L): 41.29 ml/m Ao Diam: 4.1 cm (2.0 - 3.7) AV Cusp: 1.5 cm (1.5 - 2.6) LA Diam: 4.2 cm (2.7 - 3.8) MV EXCURSION: 11.063 mm (> 18.000) MV EF SLOPE: 32 mm/s (70 - 150) EPSS: 0.7 cm MV E Shant: 0.50 m/s MV DecT: 194 ms MV A Shant: 1.05 m/s MV E/A Ratio: 0.48 AV maxP.69 mmHg AV meanP.68 mmHg RAP: 5.00 mmHg RVSP: 35.04 mmHg FINDINGS -------- Sinus rhythm. This was a technically good study. The left ventricular size is normal. There is moderate concentric left ventricular hypertrophy. Overall left ventricular systolic function is normal with, an EF between 60 - 65 %. The right ventricle is mildly enlarged. LA is severely dilated >40 ml/m2 The right atrium is normal in size. Aortic valve is trileaflet and is moderately thickened. Trace amount of aortic regurgitation. Peak/mean gradient across the Aortic Valve is 14.69mmHg / 7.68mmHg. The mitral valve leaflets are mildly thickened. Mild mitral annular calcification present. There is trace mitral regurgitation. Mild tricuspid regurgitation present. There is mild pulmonary hypertension. The right ventricular systolic pressure, as measured by Doppler, is 35.04mmHg. The pulmonic valve is normal. There is no pulmonic regurgitation present. The aortic root is dilated measuring 4.1cm. Normal inferior vena cava with normal inspiratory collapse consistent with estimated right atrial pressure of 5 mmHg. There is no pericardial effusion. CONCLUSIONS -------- 1. Sinus rhythm. 2. Trace amount of aortic regurgitation. 3. Peak/mean gradient across the Aortic Valve is 14.69mmHg / 7.68mmHg. 4. The mitral valve leaflets are mildly thickened. 5. Mild mitral annular calcification present. 6. There is trace mitral regurgitation. 7. Mild tricuspid regurgitation present. 8. There is mild pulmonary hypertension. 9. The right ventricular systolic pressure, as measured by Doppler, is 35.04mmHg. 10. The aortic root is dilated measuring 4.1cm. 11. Normal inferior vena cava with normal inspiratory collapse consistent with estimated right atrial pressure of 5 mmHg. 12. This was a technically good study. 13. There is no pericardial effusion. 14. The left ventricular size is normal. 15. There is moderate concentric left ventricular hypertrophy. 16. Overall left ventricular systolic function is normal with, an EF between 60 - 65 %. 17. The right ventricle is mildly enlarged. 18. LA is severely dilated >40 ml/m2 19. The right atrium is normal in size. 20. Aortic valve is trileaflet and is moderately thickened. [facility] PROGRAM COORDINATOR: Christopher Nick RDCS
[2016-10-01 12:27] VITALS: RESP 18; TEMP 97.6
[2016-10-01] MEDS ORDERED: ONDANSETRON 4 MG/2 ML VIAL IVP PRN (12:47)
--- NOTE | 2016-10-01 15:04 | CDI ---
In responding to this query, please exercise your independent professional judgment. The [facility] Coding Staff and Clinical Documentation Specialists appreciate your assistance in clarifying documentation, maintaining compliance with coding guidelines, accurately documenting patients condition and capturing severity of illness. The fact that a question is asked does not imply that any particular answer is desired or expected. Communication forms are a method of clarifying documentation and are not made part of the Legal Health Record. Thank you in advance for your clarification. Last Revision, November 2015 Kailyn Johnston [address] [facility] [place] [address] Documentation Clarification Form Date: 10/01/2016 2:40:00 PM From: Lacy Avitia Admit Date: 09/30/2016 12:52:00 PM Patient Name: Olmna Rivera Visit Number: [id number] Discharge Date: Dr. Kanwal Ayon TIA is documented as a diagnosis in the H&P and your consult Patient history/risk factors: Coronary artery disease, CVA/TIA, Hyperlipidemia, Hypertension, Carotid stenosis Clinical indicators: He was a home and was having difficulty getting his words out. He has expressive aphasia. Vital Signs: 165/91 66 18 97.3 98 % RA CT head: Negative for any evidence of acute stroke. Chronic white matter ischemic changes noted CT Anigogram revealed 70 % stenosis of the left ICA and 50 % of the right ICA. JULIA brain: chronic confluent periventricular white matter ischemic type changes. No acute ischemic changes evident Carotid US: No hemodynamic significant stenosis of the proximal internal carotid arteries bilaterally Echo: Sinus rhythm, Mild pulmonary hypertension. EF 60-65 % Treatment: Telemetry Plavix PO Baby ASA Neuro checks per orders Consult: In your professional opinion, please specify underlying etiology of the transient ischemic attack: Carotid Sinus Syncope Carotid Stenosis Hemorrhagic Stroke (if know specify specific location) Ischemic Stroke (if know specify cause, specific vessel/location, and laterality): Sequelae of Cerebrovascular Disease (specify Type of Cerebrovascular Disease ) Vertebo-Basilar Artery Syndrome Other (please specify): Etiology unknown or Unable to determine Please document in your progress notes and discharge summary in order to capture severity of illness and risk of mortality. Include clinical findings that support your diagnosis. FYI: Press F11 to launch patient chart Place X here if this finding has no clinical significance, is not applicable or if you are not able to provide any additional documentation. MTDD
[2016-10-01 15:48] VITALS: BP 136/72
[2016-10-01 16:01] VITALS: PULSE 60
--- NOTE | 2016-10-01 16:32 | P.GSCN ---
History of Present Illness History of present illness: 80-year-old male, with multiple recurrent problem history of TIA in the past he came with expressive aphasia with complete recovery he had a stroke workup and he was not a candidate for TPA were intervention neurologist Patient had a CTA of the carotid which showed left-sided 70% right side 50% stenosis and also had MRI which showed no change from the previous MRI and no acute stroke noted Past history patient has history of coronary artery disease hypertension hyperlipidemia history of migraine headache history of Parkinson's Surgical history patient has history see of prostrate with chemoradiation Neck examination neck is supple no bruit appreciated Chest examination chest is clear first and second sound normal Vascular examination brachial radial pulses are present femorals are present Central nervous system patient is oriented time and place normal motor function of both l extremities Impression is left carotid 70% right carotid 50% history of migraine headache history of parkinsonism patient is on antiplatelet therapy Plavix and aspirin we will discuss this case with the medicine and neurology to see physical candidate for surgical intervention we'll follow with you continue with antiplatelet therapy Past Medical History Past Medical History: Blood Disorder, Coronary Artery Disease (CAD), Cancer, Chest Pain / Angina, CVA/TIA, GERD/Reflux, Hyperlipidemia, Hypertension, Neurologic Disorder, Osteoarthritis (OA), Syncope, Vascular Disorder Additional Past Medical History / Comment(s): migraines anemia BPH hypertension GERD coronary artery disease carotid stenosis migraines occipital uti,neuralgia RESTLESS leg syndrome, neuropathy.parkinsons,prostate cancer -2012 -had chemo- radiation,stroke 2005 and tia's x5,stress test 09-30-15,kidney stones, had pne vaccine after age 66 not sure of date. History of Any Multi-Drug Resistant Organisms: None Reported Past Surgical History: Back Surgery, Heart Catheterization With Stent, Hernia Repair, Orthopedic Surgery Additional Past Surgical History / Comment(s): right knee replacement 06/19/15, both knees have been replaced, bilateral Surgery, EGD and colonoscopy 2010 and 2015, left heart catheterization with the PCI of the LAD 2012,colonoscopy/egd, supraorbtal nerve percutaneous nerve stimulator trial 09-21-12,severasl prostate bx,laser vaporization for prostate cancer, epidural steroid inj 2012 Past Anesthesia/Blood Transfusion Reactions: No Reported Reaction Date of Last Stent Placement:: 2010 Past Psychological History: No Psychological Hx Reported Smoking Status: Never smoker Past Alcohol Use History: None Reported Past Drug Use History: None Reported - Past Family History Brother(s) Additional Family Medical History / Comment(s): Patient has 3 brothers with no major medical problems. Sister(s) Additional Family Medical History / Comment(s): Patient has 3 sisters that are all alive. 2 have high blood pressure. One has diabetes and stroke and is 81 years old. And all have history of tremors. Son(s) Additional Family Medical History / Comment(s): Patient has 3 sons and one daughter with no major medical problems. Father Family Medical History: Myocardial Infarction (NM) Additional Family Medical History / Comment(s): Father at age 73 with history of Parkinson's disease, bowel cancer, bone cancer. Mother Family Medical History: Myocardial Infarction (NM) Additional Family Medical History / Comment(s): Mother at age 85 with history of hypertension and dementia. Medications and Allergies Home Medications Medication Instructions Recorded Confirmed Type Carvedilol [Coreg] 25 mg PO BID 05/21/14 09/30/16 History Cholecalciferol [Vitamin D3] 1,000 unit PO HS 05/21/14 09/30/16 History Rosuvastatin Calcium [Crestor] 40 mg PO HS 05/21/14 09/30/16 History Tamsulosin HCl [Flomax] 0.4 mg PO HS 05/21/14 09/30/16 History cloNIDine HCL [Catapres] 0.05 mg PO BID 05/21/14 09/30/16 History Famotidine [Pepcid] 20 mg PO HS 07/24/15 09/30/16 History Montelukast [Singulair] 10 mg PO HS 09/19/15 09/30/16 History Buta/APAP/Caf/Cod 46-232-69-30 2 cap PO Q4H PRN 08/20/16 09/30/16 History [Fioricet w/Cod 11-873-01-30MG] Dorzolamide HCl/Timolol Maleat 1 drop LEFT EYE BID 08/20/16 09/30/16 History [Cosopt Eye Drops] Krill/Om-3/Dha/Epa/Phospho/Ast 1 cap PO DAILY 08/20/16 09/30/16 History [[place]-3 Krill Oil 300 mg Sfgl] Lactulose 10 gm PO BID PRN 08/20/16 09/30/16 History Latanoprost [Xalatan 0.005%] 1 drop BOTH EYES HS 08/20/16 09/30/16 History Loratadine [Claritin] 10 mg PO DAILY 08/20/16 09/30/16 History Meloxicam [Mobic] 7.5 mg PO BID 08/20/16 09/30/16 History Omeprazole 20 mg PO DAILY 08/20/16 09/30/16 History Hydrochlorothiazide [Hydrodiuril] 25 mg PO DAILY 09/30/16 09/30/16 History Losartan Potassium [Cozaar] 50 mg PO DAILY 09/30/16 09/30/16 History Pramipexole [Mirapex] 1 mg PO BID 09/30/16 09/30/16 History Allergies Allergy/AdvReac Type Severity Reaction Status Date / Time oxycodone HCl AdvReac Nausea & Verified 09/30/16 11:29 [From OxyContin] Vomiting Surgical - Exam Vital Signs Temp Pulse Resp BP Pulse Ox 97.3 F L 66 18 165/91 98 09/30/16 10:45 09/30/16 10:45 09/30/16 10:45 09/30/16 10:45 09/30/16 10:45 Results - Labs 10/01/16 05:37 10/01/16 05:37 Abnormal Lab Results - Last 24 Hours (Table) 10/01/16 10/01/16 Range/Units 05:37 05:37 WBC 2.6 L (3.8-10.6) k/uL RBC 3.70 L (4.30-5.90) m/uL Hgb 11.4 L (13.0-17.5) gm/dL Hct 35.0 L (39.0-53.0) % Lymphocytes # 0.6 L (1.0-4.8) k/uL Glucose 107 H (74-99) mg/dL Total Protein 5.5 L (6.3-8.2) g/dL Albumin 3.2 L (3.5-5.0) g/dL Diabetes panel 10/01/16 Range/Units 05:37 Sodium 137 (137-145) mmol/L Potassium 4.2 (3.5-5.1) mmol/L Chloride 103 (98-107) mmol/L Carbon Dioxide 24 (22-30) mmol/L BUN 17 (9-20) mg/dL Creatinine 0.83 (0.66-1.25) mg/dL Glucose 107 H (74-99) mg/dL Calcium 9.1 (8.4-10.2) mg/dL AST 21 (17-59) U/L ALT 32 (21-72) U/L Alkaline Phosphatase 86 (38-126) U/L Total Protein 5.5 L (6.3-8.2) g/dL Albumin 3.2 L (3.5-5.0) g/dL Triglycerides 100 (<150) mg/dL HDL Cholesterol 53 (40-60) mg/dL Calcium panel 10/01/16 Range/Units 05:37 Calcium 9.1 (8.4-10.2) mg/dL Albumin 3.2 L (3.5-5.0) g/dL Pituitary panel 10/01/16 Range/Units 05:37 Sodium 137 (137-145) mmol/L Potassium 4.2 (3.5-5.1) mmol/L Chloride 103 (98-107) mmol/L Carbon Dioxide 24 (22-30) mmol/L BUN 17 (9-20) mg/dL Creatinine 0.83 (0.66-1.25) mg/dL Glucose 107 H (74-99) mg/dL Calcium 9.1 (8.4-10.2) mg/dL Adrenal panel 10/01/16 Range/Units 05:37 Sodium 137 (137-145) mmol/L Potassium 4.2 (3.5-5.1) mmol/L Chloride 103 (98-107) mmol/L Carbon Dioxide 24 (22-30) mmol/L BUN 17 (9-20) mg/dL Creatinine 0.83 (0.66-1.25) mg/dL Glucose 107 H (74-99) mg/dL Calcium 9.1 (8.4-10.2) mg/dL Total Bilirubin 0.6 (0.2-1.3) mg/dL AST 21 (17-59) U/L ALT 32 (21-72) U/L Alkaline Phosphatase 86 (38-126) U/L Total Protein 5.5 L (6.3-8.2) g/dL Albumin 3.2 L (3.5-5.0) g/dL
--- NOTE | 2016-10-01 18:25 | P.PN ---
Subjective This patient is a 80-year-old right-handed white male who was admitted to Hospital with symptoms yesterday of expressive aphasia. Patient was at home and had an episode in which she had word finding difficulties and expressive aphasia. He was brought into the emergency room where he was further evaluated. He underwent a computed tomography scan of the brain which was reported negative for acute changes. He was evaluated by the neuro interventional group and felt not to be a candidate for TPA. He underwent MRI of the brain which failed to reveal any acute stroke. The patient subscale he admitted to the hospital. He did undergo a CTA angiogram which did reveal a 70 % stenosis of the left internal carotid artery. Vascular surgery was consult for further evaluation. We are waiting there further recommendation. Patient continues to do well and has had no further recurrence of TIA like symptoms. At present he is to continue with dual platelet therapy with Plavix and aspirin. Patient continues to do well. We will await any further recommendations from vascular surgery regarding any further intervention. Case was discussed today at bedside with the patient and his as well as Dr. Londono who has reviewed his CTA angiogram and other vascular studies. At this time Dr. Londono is recommending conservative management with no further intervention for left carotid stenosis. Apparently he has had multiple episodes of similar TIA like symptoms over the last several years. Patient should continue on dual platelet therapy. Dr. Londono will be following up with the patient in the outpatient clinic in one week. Dr. Londono states the patient may be discharged home today. Neurologically he remains intact with no further recurrence of expressive aphasia. We did discuss the possibility of some of his symptoms being related to his migraine headaches. He'll be following up with his regular neurologist upon discharge. His overall prognosis at this time remains fair. Objective - Vital Signs Vital signs: Vital Signs Temp 97.6 F 10/01/16 15:47 Pulse 60 10/01/16 16:00 Resp 18 10/01/16 16:00 BP 136/72 10/01/16 15:47 Pulse Ox 97 10/01/16 15:47 Intake & Output 09/30/16 10/01/16 10/01/16 18:59 06:59 18:59 Intake Total 300 1780 600 Output Total 900 Balance 300 880 600 Weight 95 kg Intake: IV 300 1600 Sodium Chloride 0.9% 1, 300 1600 000 ml @ 100 mls/hr IV . Q10H [facility] Rx#:[id number] Oral 180 600 Output: Urine 900 - Exam Physical examination: PHYSICAL EXAMINATION: Patient is resting comfortably in bed. VITAL SIGNS: Blood pressure is [136/72]. Heart rate is [58]. Respiration is [18] . Temperature is [97.7]. HEENT: Head is atraumatic, neck is supple, there were no carotid bruits. CHEST: Lungs are clear to auscultation and percussion. CARDIAC: S1, S2 normal rate and rhythm. There is no murmur. ABDOMEN: Soft and nontender. Bowel sounds are present. EXTREMITIES: There is no pedal edema. Peripheral pulses are present. Neurological examination: Patient neurological examination is unchanged from yesterday. - Labs CBC & Chem 7: 10/01/16 05:37 10/01/16 05:37 Labs: Abnormal Lab Results - Last 24 Hours (Table) 10/01/16 10/01/16 Range/Units 05:37 05:37 WBC 2.6 L (3.8-10.6) k/uL RBC 3.70 L (4.30-5.90) m/uL Hgb 11.4 L (13.0-17.5) gm/dL Hct 35.0 L (39.0-53.0) % Lymphocytes # 0.6 L (1.0-4.8) k/uL Glucose 107 H (74-99) mg/dL Total Protein 5.5 L (6.3-8.2) g/dL Albumin 3.2 L (3.5-5.0) g/dL Assessment and Plan (1) TIA (transient ischemic attack) Status: Acute Code(s): G45.9 - TRANSIENT CEREBRAL ISCHEMIC ATTACK, UNSPECIFIED (2) Expressive aphasia Status: Acute Code(s): R47.01 - APHASIA (3) Parkinsons disease Status: Acute Code(s): G20 - PARKINSON'S DISEASE (4) Migraine headache Status: Acute Code(s): G43.909 - MIGRAINE, UNSP, NOT INTRACTABLE, WITHOUT STATUS MIGRAINOSUS Plan: This patient is a 80-year-old male who was initially admitted to hospital with episode of expressive aphasia. Patient had symptoms for at least 2 hours and this completely resolved. He was seen in the emergency room at which time he underwent a computed tomography scan of the brain as well as a CTA angiogram. CTA angiogram revealed evidence of 70% stenosis of the left internal carotid artery. He was sent for MRI of the brain which failed to reveal any evidence of acute stroke. Vascular surgery was consult to today for further evaluation. Dr. Londono is seen the patient and is recommending no further intervention as he is reviewed the CTA angiogram studies. He will follow-up in the outpatient vascular surgery clinic in one week. Patient is being considered for discharge home later today. He should continue on dual platelet therapy with Plavix and aspirin. His neurological exam at this time is nonfocal. His overall prognosis remains guarded. Case was discussed at length with the patient's and the patient at bedside. All their questions were answered. He should follow-up with his regular neurologist in 1 week after discharge.
--- NOTE | 2016-10-05 15:23 | P.DS ---
Providers Date of admission: 09/30/16 12:52 Expected date of discharge: 10/01/16 Attending physician: Chema Chaudhry Consults: 09/30/16 13:22 Consult Physician Urgent Consulting Provider: Basilia Ayon Consult Reason/Comments: CVA Do you want consulting provider notified?: Yes 10/01/16 10:12 Consult Physician Urgent Consulting Provider: Jose Londono Consult Reason/Comments: cartodid stenosis Do you want consulting provider notified?: Already Contacted Primary care physician: [facility] Course: 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, patient was in his usual state of health until about today when he woke up in the morning was feeling fine and he took his to the school health assistant and the stopped for breakfast together and went back home and patient was sitting and felt a bit weak went to lay down 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 Roa underwent CTA and computed tomography scan of the brain as well that showed a 70% stenosis of the left internal carotid artery the use the code stroke and utilized the telemedicine, was regular for patient not to pursue TPA at this point in time. He was given aspirin and he is scheduled to go for MRI of the brain with and without CAD. Patient will be admitted under our service neurology consultation will be obtained. 10/01: Dr. Londono is on consult as patient has a left carotid 70% and right carotid 50% stenosis with plan for follow-up in 1 week in the office. Patient also followed by neurology with recommendations to continue dual platelet therapy with Plavix and aspirin. Follow-up with Dr. Ayon in 1 week. MRI of the brain revealed chronic white matter ischemic changes, no acute ischemic changes evident.. Echocardiogram reveals trace aortic regurgitation, trace mitral regurgitation, mild tricuspid regurgitation, mild pulmonary hypertension , moderate concentric left ventricular hypertrophy, EF 60-65%. Discharge diagnoses: 1. Acute TIA possibly related to carotid stenosis 2. CAD post-PCI of the LAD. 3. Hypertension and hypertensive cardiovascular disease. 4. Hyperlipidemia. 5. Migraine headache. 6. Parkinson. 7. Enlarged prostate. 8. Recurrent syncope. Possibly related to autonomic dysfunction. 9. Osteoarthritis post bilateral total knee arthroplasties. 10. Gastritis. Discharge plan: Home with [facility] Impression and plan of care have been directed as dictated by the signing physician. Suly Gallo nurse practitioner acting as scribe for signing physician. Patient Condition at Discharge: Good Plan - Discharge Summary Discharge Medication List Carvedilol [Coreg] 25 mg PO BID 05/21/14 [History] cloNIDine HCL [Catapres] 0.1 mg PO DAILY 05/21/14 [History] Famotidine [Pepcid] 20 mg PO HS 07/24/15 [History] Montelukast [Singulair] 10 mg PO HS 09/19/15 [History] Clopidogrel [Plavix] 75 mg PO DAILY #30 tab 03/31/16 [Rx] Melatonin 6 mg PO HS #60 tablet 03/31/16 [Rx] Buta/APAP/Caf/Cod 64-155-52-30 [Fioricet w/Cod 19-683-83-30MG] 2 cap PO Q4H PRN 08/20/16 [History] Dorzolamide HCl/Timolol Maleat [Cosopt Eye Drops] 1 drop LEFT EYE BID 08/20/16 [ History] Krill/Om-3/Dha/Epa/Phospho/Ast [[place]-3 Krill Oil 300 mg Sfgl] 1 cap PO DAILY [History] Lactulose 10 gm PO BID PRN 08/20/16 [History] Latanoprost [Xalatan 0.005%] 1 drop BOTH EYES HS 08/20/16 [History] Loratadine [Claritin] 10 mg PO DAILY 08/20/16 [History] Meloxicam [Mobic] 7.5 mg PO BID PRN 08/20/16 [History] Omeprazole 20 mg PO DAILY 08/20/16 [History] Hydrochlorothiazide [Hydrodiuril] 25 mg PO DAILY 09/30/16 [History] Losartan Potassium [Cozaar] 50 mg PO DAILY 09/30/16 [History] Pramipexole [Mirapex] 1 mg PO BID 09/30/16 [History] Aspirin 81 mg PO DAILY chew 10/01/16 [Rx] Follow up Appointment(s)/Referral(s): Kanwal Ayon MD [STAFF PHYSICIAN] - 1 Week (Call to make follow up appt next week) Louis Lawson MD [Primary Care Provider] - 10/08/16 11:00 am (Appointment with nurse practioner) Jose Londono MD [STAFF PHYSICIAN] - 1 Week (Call to make follow up appt next week) Patient Instructions/Handouts: Migraine Headache (GEN), Ischemic Stroke (DC) Discharge Disposition: HOME WITH HOME HEALTH SERVICES
== END 2016-10-01 18:41 | disposition home health service (06) | DRG 68 ==
LOC: EC 10:42 → 6SEL 12:52
PROVIDERS: ADMIT Internal Medicine; ATTEND Internal Medicine
DX: I65.22 Occlusion and stenosis of left carotid artery (principal); G20 Parkinson's disease; I11.9 Hypertensive heart disease without heart failure; M54.81 Occipital neuralgia; M47.816 Spondylosis without myelopathy or radiculopathy, lumbar region; M47.814 Spondylosis without myelopathy or radiculopathy, thoracic region; G62.9 Polyneuropathy, unspecified; R29.702 NIHSS score 2; G43.909 Migraine, unspecified, not intractable, without status migrainosus; I25.10 Atherosclerotic heart disease of native coronary artery without angina pectoris; K21.9 Gastro-esophageal reflux disease without esophagitis; E78.5 Hyperlipidemia, unspecified; N40.0 Benign prostatic hyperplasia without lower urinary tract symptoms; K29.70 Gastritis, unspecified, without bleeding; M19.90 Unspecified osteoarthritis, unspecified site; G25.81 Restless legs syndrome; Z85.46 Personal history of malignant neoplasm of prostate; Z79.82 Long term (current) use of aspirin; Z82.3 Family history of stroke; Z95.5 Presence of coronary angioplasty implant and graft; Z96.653 Presence of artificial knee joint, bilateral; Z87.442 Personal history of urinary calculi; Z86.73 Personal history of transient ischemic attack (TIA), and cerebral infarction without residual deficits
CPT/HCPCS: 36415; 70450; 70496; 70498; 70553; 71020; 80053; 80061; 82550; 82553; 83090; 84484; 85025; 85610; 85730; 93005; 93306; 93880; 96361; 96365; 96375; 99291

== ENCOUNTER 2016-10-02 14:27 | Emergency (ER) | payer MEDICARE ==
[2016-10-02 14:34] VITALS: RESP 18
[2016-10-02] MEDS ORDERED: SODIUM CHLORIDE 0.9% 1,000 ML IV ONE (14:55)
--- NOTE | 2016-10-02 15:21 | ED ---
General Adult HPI - General Chief complaint: Altered Mental Status Stated complaint: migraine Time Seen by Provider: 10/02/16 14:36 Source: patient, EMS Mode of arrival: EMS Limitations: altered mental status - History of Present Illness Initial comments: This 80-year-old white male presents with a complaint of some expressive aphasia. Per the , this occurred at approximately 1:30 PM and lasted a few minutes. He apparently was just hospitalized 2 days ago for the same. At that time he had a full workup which did include carotid Dopplers and this showed 70 % stenosis on the left side and 50% on the right. He was evaluated by vascular in neurology and apparently they recommended nonsurgical treatment. He's been taking aspirin as well as Plavix. He did not take his aspirin yet today. He has no complaints at this time other than his chronic migraine headache. He apparently has headaches every day for the last 20 years. He does present via EMS and states that they gave him something and route and his headache is improved. He denies any lateralized weakness but does feel somewhat weak generalized. No other complaints or modifying factors. - Related Data Home Medications Medication Instructions Recorded Confirmed Carvedilol [Coreg] 25 mg PO BID 05/21/14 10/02/16 cloNIDine HCL [Catapres] 0.1 mg PO DAILY 05/21/14 10/02/16 Famotidine [Pepcid] 20 mg PO HS 07/24/15 10/02/16 Montelukast [Singulair] 10 mg PO HS 09/19/15 10/02/16 Buta/APAP/Caf/Cod [id number] 2 cap PO Q4H PRN 08/20/16 10/02/16 [Fioricet w/Cod 13-423-40-30MG] Dorzolamide HCl/Timolol Maleat 1 drop LEFT EYE BID 08/20/16 10/02/16 [Cosopt Eye Drops] Krill/Om-3/Dha/Epa/Phospho/Ast 1 cap PO DAILY 08/20/16 10/02/16 [[place]-3 Krill Oil 300 mg Sfgl] Lactulose 10 gm PO BID PRN 08/20/16 10/02/16 Latanoprost [Xalatan 0.005%] 1 drop BOTH EYES HS 08/20/16 10/02/16 Loratadine [Claritin] 10 mg PO DAILY 08/20/16 10/02/16 Meloxicam [Mobic] 7.5 mg PO BID PRN 08/20/16 10/02/16 Omeprazole 20 mg PO DAILY 08/20/16 10/02/16 Hydrochlorothiazide [Hydrodiuril] 25 mg PO DAILY 09/30/16 10/02/16 Losartan Potassium [Cozaar] 50 mg PO DAILY 09/30/16 10/02/16 Pramipexole [Mirapex] 1 mg PO BID 09/30/16 10/02/16 Previous Rx's Medication Instructions Recorded Clopidogrel [Plavix] 75 mg PO DAILY #30 tab 03/31/16 Melatonin 6 mg PO HS #60 tablet 03/31/16 Aspirin 81 mg PO DAILY chew 10/01/16 Allergies Allergy/AdvReac Type Severity Reaction Status Date / Time oxycodone HCl AdvReac Nausea & Verified 10/02/16 16:16 [From OxyContin] Vomiting Review of Systems ROS Statement: Those systems with pertinent positive or pertinent negative responses have been documented in the HPI. ROS Other: All systems not noted in ROS Statement are negative. Past Medical History Past Medical History: Blood Disorder, Coronary Artery Disease (CAD), Cancer, Chest Pain / Angina, CVA/TIA, GERD/Reflux, Hyperlipidemia, Hypertension, Neurologic Disorder, Osteoarthritis (OA), Syncope, Vascular Disorder Additional Past Medical History / Comment(s): migraines anemia BPH hypertension GERD coronary artery disease carotid stenosis migraines occipital uti,neuralgia RESTLESS leg syndrome, neuropathy.parkinsons,prostate cancer -2012 -had chemo- radiation,stroke 2005 and tia's x5,stress test 09-30-15,kidney stones, had pne vaccine after age 66 not sure of date. History of Any Multi-Drug Resistant Organisms: None Reported Past Surgical History: Back Surgery, Heart Catheterization With Stent, Hernia Repair, Orthopedic Surgery Additional Past Surgical History / Comment(s): right knee replacement 06/19/15, both knees have been replaced, bilateral Surgery, EGD and colonoscopy 2010 and 2015, left heart catheterization with the PCI of the LAD 2012,colonoscopy/egd, supraorbtal nerve percutaneous nerve stimulator trial 09-21-12,severasl prostate bx,laser vaporization for prostate cancer, epidural steroid inj 2012 Past Anesthesia/Blood Transfusion Reactions: No Reported Reaction Date of Last Stent Placement:: 2010 Past Psychological History: No Psychological Hx Reported Smoking Status: Never smoker Past Alcohol Use History: None Reported Past Drug Use History: None Reported - Past Family History Brother(s) Additional Family Medical History / Comment(s): Patient has 3 brothers with no major medical problems. Sister(s) Additional Family Medical History / Comment(s): Patient has 3 sisters that are all alive. 2 have high blood pressure. One has diabetes and stroke and is 81 years old. And all have history of tremors. Son(s) Additional Family Medical History / Comment(s): Patient has 3 sons and one daughter with no major medical problems. Father Family Medical History: Myocardial Infarction ([place]) Additional Family Medical History / Comment(s): Father at age 73 with history of Parkinson's disease, bowel cancer, bone cancer. Mother Family Medical History: Myocardial Infarction ([place]) Additional Family Medical History / Comment(s): Mother at age 85 with history of hypertension and dementia. General Exam - General Exam Comments Initial Comments: GENERAL: The patient is well nourished and well hydrated. VITAL SIGNS: Heart rate, blood pressure, respiratory rate reviewed as recorded in nurse's notes. EYES: Pupils are round and reactive. Extraocular movements are intact. No conjunctival / lid redness or swelling. ENT: No external evidence of injury, swelling, or ecchymosis. Airway is patent. Throat is clear. NECK: Nontender. No swelling or evidence of injury. No subcutaneous emphysema. Trachea is midline. No thyroid mass. HEART: Regular rate and rhythm. Good peripheral pulses. LUNGS/CHEST: Breath sounds clear and equal bilaterally. No rales, rhonchi, or wheezes. No ecchymosis, subcutaneous emphysema, or tenderness. ABDOMEN: Abdomen soft without tenderness. No palpable masses or organomegaly. No peritoneal signs. No abdominal wall swelling or ecchymosis. EXTREMITIES: No extremity tenderness. Normal muscle tone and function. No thoracolumbar tenderness. NEUROLOGIC: Sensation is grossly intact. Cranial nerve exam reveals face is symmetrical, tongue is midline, speech is clear. No expressive aphasia currently noted. SKIN: No abrasions or ecchymosis is noted. No induration or masses noted. PSYCHIATRIC: Alert and oriented. Appropriate behavior and judgment. Limitations: altered mental status Course Vital Signs 10/02/16 14:32 Temperature 98.3 F Pulse Rate 72 Respiratory 18 Rate Blood Pressure 170/82 O2 Sat by Pulse 96 Oximetry Medical Decision Making - Medical Decision Making The patient was seen and examined. All diagnostics were reviewed. The EKG shows a normal sinus rhythm at a rate of 68. There is nonspecific ST T-wave changes in the inferior leads. The NM interval is 188, QRS duration is 86, and the QTc interval is 459. Old records were reviewed. The computed tomography scan shows some small vessel ischemic changes but no other acute process of the brain. The laboratory is reviewed and is fairly unremarkable. He did not take his aspirin today so was given some aspirin. The was discussed with internal medicine. Dr. Chaudhry relates that he is quite familiar with the patient. The patient has had multiple TIAs in the past. He was just recently evaluated by our vascular surgeon and felt as though he would be at high risk for any intervention due to comorbidities. Dr. Chaudhry relates that the patient may benefit from transfer to another facility and obtain another opinion regarding his condition and possible carotid stenosis surgical intervention. The family is quite agreeable to this plan and request transfer to [facility]. Case is discussed with Dr. Loera and he is agreeable in regard to transfer. Appropriate transfer paperwork is completed. - Lab Data Result diagrams: 10/02/16 15:10 10/02/16 15:10 Lab Results 10/02/16 10/02/16 10/02/16 Range/Units 15:10 15:10 15:10 WBC 4.0 (3.8-10.6) k/uL RBC 3.84 L (4.30-5.90) m/uL Hgb 12.1 L (13.0-17.5) gm/dL Hct 35.4 L (39.0-53.0) % MCV 92.3 (80.0-100.0) fL MCH 31.6 (25.0-35.0) pg MCHC 34.3 (31.0-37.0) g/dL RDW 12.8 (11.5-15.5) % Plt Count 184 (150-450) k/uL Neutrophils % 62 % Lymphocytes % 20 % Monocytes % 7 % Eosinophils % 8 % Basophils % 1 % Neutrophils # 2.5 (1.3-7.7) k/uL Lymphocytes # 0.8 L (1.0-4.8) k/uL Monocytes # 0.3 (0-1.0) k/uL Eosinophils # 0.3 (0-0.7) k/uL Basophils # 0.0 (0-0.2) k/uL PT (9.0-12.0) sec INR (<1.1) APTT (22.0-30.0) sec Sodium 134 L (137-145) mmol/L Potassium 3.8 (3.5-5.1) mmol/L Chloride 99 (98-107) mmol/L Carbon Dioxide 27 (22-30) mmol/L Anion Gap 8 mmol/L BUN 21 H (9-20) mg/dL Creatinine 0.80 (0.66-1.25) mg/dL Est GFR (MDRD) Af Amer >60 (>60 ml/min/1.73 sqM) Est GFR (MDRD) Non-Af >60 (>60 ml/min/1.73 sqM) Glucose 99 (74-99) mg/dL Calcium 9.1 (8.4-10.2) mg/dL Total Bilirubin 0.5 (0.2-1.3) mg/dL AST 24 (17-59) U/L ALT 31 (21-72) U/L Alkaline Phosphatase 92 (38-126) U/L Total Creatine Kinase 58 (55-170) U/L CK-MB (CK-2) 1.8 (0.0-2.4) ng/mL CK-MB (CK-2) Rel Index 3.1 Troponin I <0.012 (0.000-0.034) ng/mL Total Protein 5.5 L (6.3-8.2) g/dL Albumin 3.5 (3.5-5.0) g/dL Urine Color Urine Appearance (Clear) Urine pH (5.0-8.0) Ur Specific Hoffman (1.001-1.035) Urine Protein (Negative) Urine Glucose (UA) (Negative) Urine Ketones (Negative) Urine Blood (Negative) Urine Nitrate (Negative) Urine Bilirubin (Negative) Urine Urobilinogen (<2.0) mg/dL Ur Leukocyte Esterase (Negative) 10/02/16 10/02/16 Range/Units 15:10 15:50 WBC (3.8-10.6) k/uL RBC (4.30-5.90) m/uL Hgb (13.0-17.5) gm/dL Hct (39.0-53.0) % MCV (80.0-100.0) fL MCH (25.0-35.0) pg MCHC (31.0-37.0) g/dL RDW (11.5-15.5) % Plt Count (150-450) k/uL Neutrophils % % Lymphocytes % % Monocytes % % Eosinophils % % Basophils % % Neutrophils # (1.3-7.7) k/uL Lymphocytes # (1.0-4.8) k/uL Monocytes # (0-1.0) k/uL Eosinophils # (0-0.7) k/uL Basophils # (0-0.2) k/uL PT 11.3 (9.0-12.0) sec INR 1.1 (<1.1) APTT 21.5 L (22.0-30.0) sec Sodium (137-145) mmol/L Potassium (3.5-5.1) mmol/L Chloride (98-107) mmol/L Carbon Dioxide (22-30) mmol/L Anion Gap mmol/L BUN (9-20) mg/dL Creatinine (0.66-1.25) mg/dL Est GFR (MDRD) Af Amer (>60 ml/min/1.73 sqM) Est GFR (MDRD) Non-Af (>60 ml/min/1.73 sqM) Glucose (74-99) mg/dL Calcium (8.4-10.2) mg/dL Total Bilirubin (0.2-1.3) mg/dL AST (17-59) U/L ALT (21-72) U/L Alkaline Phosphatase (38-126) U/L Total Creatine Kinase (55-170) U/L CK-MB (CK-2) (0.0-2.4) ng/mL CK-MB (CK-2) Rel Index Troponin I (0.000-0.034) ng/mL Total Protein (6.3-8.2) g/dL Albumin (3.5-5.0) g/dL Urine Color Yellow Urine Appearance Clear (Clear) Urine pH 6.0 (5.0-8.0) Ur Specific Hoffman 1.011 (1.001-1.035) Urine Protein Negative (Negative) Urine Glucose (UA) Negative (Negative) Urine Ketones Negative (Negative) Urine Blood Negative (Negative) Urine Nitrate Negative (Negative) Urine Bilirubin Negative (Negative) Urine Urobilinogen <2.0 (<2.0) mg/dL Ur Leukocyte Esterase Negative (Negative) Disposition Clinical Impression: TIA (transient ischemic attack), Expressive aphasia, Carotid stenosis, History of recurrent TIAs Disposition: OTHER INSTITUTION NOT DEFINED Condition: Fair Time of Disposition: 17:54 - Out of Hospital Transfer - Req. Specs Out of Hospital Transfer - Requested Specifics: Other Emergency Center ([facility])
[2016-10-02 15:27] LABS: Basophils % (A) 1 %; CHCM 33.7; Eosinophils # (A) 0.3 k/uL (0-0.7); Eosinophils % (A) 8 %; HCT 35.4 % (39.0-53.0); HDW 2.35; HGB 12.1 gm/dL (13.0-17.5); Luc # (Auto) 0.12; Luc % (Auto) 3; Lymphocytes # (A) 0.8 k/uL (1.0-4.8); Lymphocytes % (A) 20 %; MCH 31.6 pg (25.0-35.0); MCHC 34.3 g/dL (31.0-37.0); MCV 92.3 fL (80.0-100.0); Mean Platelet Volume 6.6; Monocytes # (A) 0.3 k/uL (0-1.0); Monocytes % (A) 7 %; Neutrophils # (A) 2.5 k/uL (1.3-7.7); Neutrophils % (A) 62 %; RBC 3.84 m/uL (4.30-5.90); RDW 12.8 % (11.5-15.5); WBC (Perox) 4.26
--- NOTE | 2016-10-02 15:33 | CT ---
EXAMINATION TYPE: CT brain wo con DATE OF EXAM: 10/02/2016 3:27 PM COMPARISON: NONE HISTORY: 80-year-old male with expressive aphasia and migraine. TECHNIQUE: Examination was done in axial plane without intravenous contrast. Coronal and sagittal reconstructio ns performed. CT DLP: 1057.00 mGycm Automated exposure control for dose reduction was used. FINDINGS: There is no evidence of acute intracranial hemorrhage, acute ischemic changes, mass, mass-effect, or extra-axial fluid collection. There is no effacement of cerebral sulci or basal subarachnoid cister ns. There is no midline shift. Arora-white matter distinction is preserved. Stable mild ventriculomegaly likely from central cerebral volume loss. Old lacunar infarcts bilateral basal ganglia. There is severe confluent white matter hypodensities in both cerebral hemispheres. Trace mucosal thickening left maxillary sinus. There is leftward nasal septal deviation. Mastoid air cells well pneumatized. Orbits and globes are intact. IMPRESSION: No acute intracranial abnormality seen. Stable mild central cerebral atrophy and severe confluent elio nges of chronic small vessel ischemic disease.
[2016-10-02 15:38] LABS: ALT 31 U/L (21-72); AST 24 U/L (17-59); Alkaline Phosphatase 92 U/L (38-126); Anion Gap 8 mmol/L; Blood Urea Nitrogen 21 mg/dL (9-20); Calcium 9.1 mg/dL (8.4-10.2); Carbon Dioxide 27 mmol/L (22-30); Chloride 99 mmol/L (98-107); Glucose 99 mg/dL (74-99); Non-African American GFR(MDRD) >60 (>60 ml/min/1.73 sqM); Potassium 3.8 mmol/L (3.5-5.1); Sodium 134 mmol/L (137-145); Total Bilirubin 0.5 mg/dL (0.2-1.3); Total Protein 5.5 g/dL (6.3-8.2)
[2016-10-02 15:42] LABS: Creatine Kinase 58 U/L (55-170)
[2016-10-02 15:45] LABS: INR 1.1 (<1.1); Prothrombin Time 11.3 sec (9.0-12.0)
[2016-10-02 15:55] LABS: Creatine Kinase MB 1.8 ng/mL (0.0-2.4); Troponin I <0.012 ng/mL (0.000-0.034)
[2016-10-02] MEDS ORDERED: ASPIRIN 81 MG CHEW PO STA (15:55)
[2016-10-02 16:00] LABS: Partial Thromboplastin Time 21.5 sec (22.0-30.0)
[2016-10-02 16:08] LABS: Appearance,Urine Clear (Clear); Bilirubin,Urine Negative (Negative); Glucose,Urine (UA) Negative (Negative); Ketones,Urine Negative (Negative); Leukocyte Esterase,Urine Negative (Negative); Nitrite,Urine Negative (Negative); Protein,Urine Negative (Negative); Specific Gravity,Urine 1.011 (1.001-1.035); UA Billing (MACRO vs. MICRO) CHEM; Urobilinogen,Urine <2.0 mg/dL (<2.0)
[2016-10-02] MEDS ORDERED: MORPHINE SULFATE 2 MG/ML SYRINGE IVP ONE (18:05)
[2016-10-02] MEDS ORDERED: ONDANSETRON 4 MG/2 ML VIAL IVP STA (18:05)
[2016-10-02 18:11] VITALS: BP 183/90; PULSE 67; TEMP 97.9
== END 2016-10-02 18:30 | disposition other institution (70) ==
LOC: EC 14:27
DX: G45.9 Transient cerebral ischemic attack, unspecified (principal); I65.29 Occlusion and stenosis of unspecified carotid artery; I10 Essential (primary) hypertension; K21.9 Gastro-esophageal reflux disease without esophagitis; G43.909 Migraine, unspecified, not intractable, without status migrainosus; G25.81 Restless legs syndrome; I25.10 Atherosclerotic heart disease of native coronary artery without angina pectoris; E78.5 Hyperlipidemia, unspecified; G20 Parkinson's disease; N40.0 Benign prostatic hyperplasia without lower urinary tract symptoms; Z86.73 Personal history of transient ischemic attack (TIA), and cerebral infarction without residual deficits; Z79.02 Long term (current) use of antithrombotics/antiplatelets; Z79.82 Long term (current) use of aspirin; Z79.899 Other long term (current) drug therapy; Z95.5 Presence of coronary angioplasty implant and graft; Z92.3 Personal history of irradiation; Z85.46 Personal history of malignant neoplasm of prostate; Z87.442 Personal history of urinary calculi
CPT/HCPCS: 36415; 93005; 80053; 82550; 82553; 84484; 85025; 85610; 85730; 81003; 70450; 99285; 96374; 96375; 96361; J2405; J2270

== ENCOUNTER 2017-03-05 17:09 | Emergency (ER) | payer MEDICARE ==
[2017-03-05] MEDS ORDERED: methylPREDNISolone SOD SUCCI 250 MG in SODIUM CHLORIDE 0.9% 100 ML IVPB STA (17:47)
[2017-03-05] MEDS ORDERED: KETOROLAC 30 MG/ML 1 ML VIAL IVP STA (17:47)
[2017-03-05] MEDS ORDERED: SODIUM CHLORIDE 0.9% 1,000 ML IV STA (17:47)
[2017-03-05] MEDS ORDERED: METOCLOPRAMIDE 5 MG/ML 2 ML VIAL IVP STA (17:47)
[2017-03-05] MEDS ORDERED: diphenhydrAMINE 50 MG/ML 1 ML VIAL IVP STA ×2 (17:47→18:50)
--- NOTE | 2017-03-05 17:52 | ED ---
General Adult HPI - General Chief complaint: Headache Stated complaint: migraine Time Seen by Provider: 03/05/17 17:37 Source: patient, RN notes reviewed, old records reviewed Mode of arrival: ambulatory Limitations: no limitations - History of Present Illness Initial comments: This is an 81-year-old male here for evaluation of headache. Patient is a migraine type headache 3 days. A pretty consistent, consistent prior history of migraines. No trauma. No nausea vomiting. No neurological deficits. - Related Data Home Medications Medication Instructions Recorded Confirmed Carvedilol [Coreg] 25 mg PO BID-W/MEALS 05/21/14 03/05/17 cloNIDine HCL [Catapres] 0.05 mg PO BID 05/21/14 03/05/17 Famotidine [Pepcid] 20 mg PO HS 07/24/15 03/05/17 Montelukast [Singulair] 10 mg PO HS 09/19/15 03/05/17 Buta/APAP/Caf/Cod [id number] 2 cap PO Q4H PRN MDD 4 capsules 08/20/16 03/05/17 [Fioricet w/Cod 22-633-93-30MG] Dorzolamide HCl/Timolol Maleat 1 drop LEFT EYE BID 08/20/16 03/05/17 [Cosopt Eye Drops] Lactulose 10 gm PO BID PRN 08/20/16 03/05/17 Latanoprost [Xalatan 0.005%] 1 drop BOTH EYES HS 08/20/16 03/05/17 Loratadine [Claritin] 10 mg PO QAM 08/20/16 03/05/17 Meloxicam [Mobic] 7.5 mg PO HS 08/20/16 03/05/17 Aspirin EC [Ecotrin Low Dose] 81 mg PO QAM 03/05/17 03/05/17 Bisacodyl [Dulcolax] 10 mg RECTAL DAILY PRN 03/05/17 03/05/17 Cholecalciferol [Vitamin D3] 1,000 unit PO HS 03/05/17 03/05/17 Clopidogrel [Plavix] 75 mg PO QAM 03/05/17 03/05/17 Diclofenac Sodium [Voltaren Gel] 2 gram TOPICAL QID PRN 03/05/17 03/05/17 Losartan [Cozaar] 50 mg PO QAM 03/05/17 03/05/17 [place]-3 Fatty Acids/Fish Oil [Fish 1 cap PO QAM 03/05/17 03/05/17 Oil 1,000 mg Capsule] Pramipexole [Mirapex] 1 mg PO BID 03/05/17 03/05/17 Tamsulosin HCl [Flomax] 0.4 mg PO HS 03/05/17 03/05/17 Ubidecarenone [Co Q-10] 200 mg PO QAM 03/05/17 03/05/17 Allergies Allergy/AdvReac Type Severity Reaction Status Date / Time oxycodone HCl AdvReac Nausea & Verified 03/05/17 18:43 [From OxyContin] Vomiting Review of Systems ROS Statement: Those systems with pertinent positive or pertinent negative responses have been documented in the HPI. ROS Other: All systems not noted in ROS Statement are negative. Past Medical History Past Medical History: Blood Disorder, Coronary Artery Disease (CAD), Cancer, Chest Pain / Angina, CVA/TIA, GERD/Reflux, Hyperlipidemia, Hypertension, Neurologic Disorder, Osteoarthritis (OA), Syncope, Vascular Disorder Additional Past Medical History / Comment(s): migraines anemia BPH hypertension GERD coronary artery disease carotid stenosis migraines occipital uti,neuralgia RESTLESS leg syndrome, neuropathy.parkinsons,prostate cancer -2012 -had chemo- radiation,stroke 2004 and tia's x5,stress test 09-30-15,kidney stones, had pne vaccine after age 66 not sure of date. History of Any Multi-Drug Resistant Organisms: None Reported Past Surgical History: Back Surgery, Heart Catheterization With Stent, Hernia Repair, Orthopedic Surgery Additional Past Surgical History / Comment(s): right knee replacement 06/19/15, both knees have been replaced, bilateral Surgery, EGD and colonoscopy 2010 and 2015, left heart catheterization with the PCI of the LAD 2012,colonoscopy/egd, supraorbtal nerve percutaneous nerve stimulator trial 09-21-12,severasl prostate bx,laser vaporization for prostate cancer, epidural steroid inj 2012 Past Anesthesia/Blood Transfusion Reactions: No Reported Reaction Date of Last Stent Placement:: 2010 Past Psychological History: No Psychological Hx Reported Smoking Status: Never smoker Past Alcohol Use History: None Reported Past Drug Use History: None Reported - Past Family History Brother(s) Additional Family Medical History / Comment(s): Patient has 3 brothers with no major medical problems. Sister(s) Additional Family Medical History / Comment(s): Patient has 3 sisters that are all alive. 2 have high blood pressure. One has diabetes and stroke and is 81 years old. And all have history of tremors. Son(s) Additional Family Medical History / Comment(s): Patient has 3 sons and one daughter with no major medical problems. Father Family Medical History: Myocardial Infarction ([place]) Additional Family Medical History / Comment(s): Father at age 73 with history of Parkinson's disease, bowel cancer, bone cancer. Mother Family Medical History: Myocardial Infarction ([place]) Additional Family Medical History / Comment(s): Mother at age 85 with history of hypertension and dementia. General Exam Limitations: no limitations General appearance: alert, in no apparent distress Head exam: Present: atraumatic, normocephalic, normal inspection Eye exam: Present: normal appearance, PERRL, EOMI. Absent: scleral icterus, conjunctival injection, periorbital swelling ENT exam: Present: normal exam, mucous membranes moist Neck exam: Present: normal inspection. Absent: tenderness, meningismus, lymphadenopathy Respiratory exam: Present: normal lung sounds bilaterally. Absent: respiratory distress, wheezes, rales, rhonchi, stridor Cardiovascular Exam: Present: regular rate, normal rhythm, normal heart sounds. Absent: systolic murmur, diastolic murmur, rubs, gallop, clicks GI/Abdominal exam: Present: soft, normal bowel sounds. Absent: distended, tenderness, guarding, rebound, rigid Extremities exam: Present: normal inspection, full ROM, normal capillary refill. Absent: tenderness, pedal edema, joint swelling, calf tenderness Back exam: Present: normal inspection Neurological exam: Present: alert, oriented X3, CN II-XII intact Psychiatric exam: Present: normal affect, normal mood Skin exam: Present: warm, dry, intact, normal color. Absent: rash Course Vital Signs 03/05/17 03/05/17 03/05/17 17:30 18:45 18:50 Temperature 98.1 F Pulse Rate 76 75 Respiratory 18 Rate Blood Pressure 160/96 211/123 186/82 O2 Sat by Pulse 98 Oximetry 03/05/17 03/05/17 19:05 19:15 Temperature Pulse Rate 77 76 Respiratory 16 16 Rate Blood Pressure 158/84 164/90 O2 Sat by Pulse 96 97 Oximetry - Reevaluation(s) Reevaluation #1: 03/05/17 20:02 Patient did have these are reaction to Reglan, patient treated with Benadryl, headache is resolved Medical Decision Making - Medical Decision Making 81 male evaluation migraine headache. Migraine headache. Patient will be discharged home Disposition Clinical Impression: Migraine headache Disposition: HOME SELF-CARE Condition: Good Instructions: Acute Headache (ED) Referrals: Louis Lawson MD [Primary Care Provider] - 1-2 days
[2017-03-05] MEDS ORDERED: LABETALOL 5 MG/ML VIAL MDV IVP STA (18:31)
[2017-03-05 19:06] VITALS: RESP 16
[2017-03-05 20:12] VITALS: BP 143/70; PULSE 77; TEMP 98
== END 2017-03-05 20:27 | disposition home or self-care (01) ==
LOC: EC 17:09
DX: G43.909 Migraine, unspecified, not intractable, without status migrainosus (principal); I25.10 Atherosclerotic heart disease of native coronary artery without angina pectoris; K21.9 Gastro-esophageal reflux disease without esophagitis; E78.5 Hyperlipidemia, unspecified; I10 Essential (primary) hypertension; M19.90 Unspecified osteoarthritis, unspecified site; N40.0 Benign prostatic hyperplasia without lower urinary tract symptoms; G25.81 Restless legs syndrome; Z79.02 Long term (current) use of antithrombotics/antiplatelets; Z79.82 Long term (current) use of aspirin; Z79.899 Other long term (current) drug therapy; Z88.5 Allergy status to narcotic agent; Z85.46 Personal history of malignant neoplasm of prostate; Z86.73 Personal history of transient ischemic attack (TIA), and cerebral infarction without residual deficits; Z95.5 Presence of coronary angioplasty implant and graft
CPT/HCPCS: 99283; 96365; 96366; 96375 ×4; 96376; J1200; J2765; J2930; J1885

== ENCOUNTER → 2017-03-19 | Outpatient (CLI) | payer MEDICARE ==
--- NOTE | 2017-03-20 11:15 | CT ---
EXAMINATION TYPE: CT abdomen pelvis wo con DATE OF EXAM: 03/19/2017 COMPARISON: 03/19/2016 INDICATION: Hematuira. Hx of kidney stones. DLP: 973 mGycm, Automated exposure control for dose reduction was used. CONTRAST: 0 mL of Omnipaque 300. Study performed without Oral Contrast TECHNIQUE: Axial images were obtained from above the diaphragm to the pubic rami in the axial plane a t 5 mm thick sections. Reconstructed images are reviewed on the computer in the coronal plane. FINDINGS: Limited CT sections are obtained the lung bases. Scattered infiltrates are present at the right lung base. Correlate for subsegmental atelectasis. Note is made of coronary artery calcification.. CT ABDOMEN: Liver: Normal Spleen: Normal Pancreas: Normal Adrenal glands: The adrenal glands are normal. Gallbladder: Normal Kidneys: No masses are evident. No hydronephrosis is present. Multiple nonobstructing renal stones are present within the right kidney including a 0.5 cm calcification at the inferior pole, a 0.5 cm c alcification in the mid pole and a 0.3 cm calcification in the superior pole. Some additional fainter calcification may be present. Small cyst on the lateral right kidney measuring 0.9 cm in size. There is a 2.2 cm cyst on the mid to inferior pole left kidney. Couple of punctate inferior pole renal sto hugo are present. Couple of punctate superior renal stones are present. The largest left renal stone w ithout evidence of obstruction measures 0.4 cm at the mid to inferior pole. Aorta: Vascular calcification is within the aorta. There is fusiform prominence of the mid abdominal aorta with an AP diameter of 2.8 cm. This terminates at the bifurcation. The left common iliac arter y is prominent at 2.3 cm. The right common iliac arteries prominent at 2.2 cm. Distal common iliac ar gaston is aneurysmal measuring 3.0 cm. Inferior vena cava: Normal. CT PELVIS: Loops of bowel within the abdomen and pelvis are normal. Multiple diverticuli are within the sigm oid colon. Appendix: Normal as visualized. Urinary bladder: Decompressed with limited evaluation. Genitourinary structures: Prostate calcification and markers are present within the prostate. Osseous structures: No suspicious lytic or sclerotic lesions. There is a right inguinal hernia. COMPARISON: Renal stones are better visualized on the current examination than prior. Diverticulosis was present previously as well. IMPRESSIONS: 1. Multiple bilateral nonobstructing renal stones. 2. Renal cysts. 3. Mild fusiform prominence distal abdominal aorta. 4. 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 5. Right inguinal hernia containing mesenteric fat.
== END | disposition home or self-care (01) ==
LOC: RADCTMAIN 15:55
PROVIDERS: ATTEND Internal Medicine Geriatric Medicine
DX: N20.0 Calculus of kidney (principal); N28.1 Cyst of kidney, acquired; K40.90 Unilateral inguinal hernia, without obstruction or gangrene, not specified as recurrent; I72.3 Aneurysm of iliac artery
CPT/HCPCS: 74176

== ENCOUNTER 2017-03-23 19:56 | Inpatient (IN) | payer MEDICARE ==
--- NOTE | 2017-03-23 20:13 | ED ---
Syncope HPI - General Stated Complaint: Syncope Time Seen by Provider: 03/23/17 19:56 Source: patient, EMS, RN notes reviewed, old records reviewed Mode of arrival: EMS - History of Present Illness Initial Comments: this is an 81 year old male with a history of CVA in the past as well as hypertension and a stent was sitting at table today when he suddenly slumped over. He was almost a curb referred time woke up and was dizzy he have some increased slurred speech and does have left-sided weakness which is left over from his previous stroke. No reports of fevers chills nausea, sweats or trauma. Per paramedics report that the family states this is his normal mental health state. MD Complaint: loss of consciousness - Related Data Home Medications Medication Instructions Recorded Confirmed Carvedilol [Coreg] 25 mg PO BID-W/MEALS 05/21/14 03/23/17 cloNIDine HCL [Catapres] 0.05 mg PO BID 05/21/14 03/23/17 Famotidine [Pepcid] 20 mg PO HS 07/24/15 03/23/17 Montelukast [Singulair] 10 mg PO HS 09/19/15 03/23/17 Buta/APAP/Caf/Cod 28-062-18-30 2 cap PO Q4H PRN MDD 4 capsules 08/20/16 03/23/17 [Fioricet w/Cod 22-855-07-30MG] Dorzolamide HCl/Timolol Maleat 1 drop LEFT EYE BID 08/20/16 03/23/17 [Cosopt Eye Drops] Lactulose 10 gm PO BID PRN 08/20/16 03/23/17 Latanoprost [Xalatan 0.005%] 1 drop BOTH EYES HS 08/20/16 03/23/17 Loratadine [Claritin] 10 mg PO DAILY 08/20/16 03/23/17 Meloxicam [Mobic] 7.5 mg PO BID 08/20/16 03/23/17 Aspirin EC [Ecotrin Low Dose] 81 mg PO DAILY 03/05/17 03/23/17 Bisacodyl [Dulcolax] 10 mg RECTAL DAILY PRN 03/05/17 03/23/17 Cholecalciferol [Vitamin D3] 1,000 unit PO HS 03/05/17 03/23/17 Clopidogrel [Plavix] 75 mg PO DAILY 03/05/17 03/23/17 Diclofenac Sodium [Voltaren Gel] 2 gram TOPICAL QID PRN 03/05/17 03/23/17 Losartan [Cozaar] 50 mg PO DAILY 03/05/17 03/23/17 [place]-3 Fatty Acids/Fish Oil [Fish 1 cap PO DAILY 03/05/17 03/23/17 Oil 1,000 mg Capsule] Pramipexole [Mirapex] 1 mg PO DAILY 03/05/17 03/23/17 Tamsulosin HCl [Flomax] 0.4 mg PO HS 03/05/17 03/23/17 Ubidecarenone [Co Q-10] 200 mg PO DAILY 03/05/17 03/23/17 Pramipexole [Mirapex] 2 mg PO HS 03/23/17 03/23/17 Allergies Allergy/AdvReac Type Severity Reaction Status Date / Time metoclopramide [From Reglan] AdvReac SHAKES Verified 03/23/17 21:24 oxycodone HCl AdvReac Nausea & Verified 03/23/17 21:24 [From OxyContin] Vomiting Review of Systems ROS Statement: Those systems with pertinent positive or pertinent negative responses have been documented in the HPI. ROS Other: All systems not noted in ROS Statement are negative. Past Medical History Past Medical History: Blood Disorder, Coronary Artery Disease (CAD), Cancer, Chest Pain / Angina, CVA/TIA, GERD/Reflux, Hyperlipidemia, Hypertension, Neurologic Disorder, Osteoarthritis (OA), Syncope, Vascular Disorder Additional Past Medical History / Comment(s): migraines anemia BPH hypertension GERD coronary artery disease carotid stenosis migraines occipital uti,neuralgia RESTLESS leg syndrome, neuropathy.parkinsons,prostate cancer -had chemo- radiation,stroke 2005 and tia's x5,stress test 09-30-15,kidney stones, had pne vaccine after age 66 not sure of date. History of Any Multi-Drug Resistant Organisms: None Reported Past Surgical History: Back Surgery, Heart Catheterization With Stent, Hernia Repair, Orthopedic Surgery Additional Past Surgical History / Comment(s): right knee replacement 06/19/15, both knees have been replaced, bilateral Surgery, EGD and colonoscopy 2010 and 2015, left heart catheterization with the PCI of the LAD 2012,colonoscopy/egd, supraorbtal nerve percutaneous nerve stimulator trial 09-21-12,severasl prostate bx,laser vaporization for prostate cancer, epidural steroid inj 2012 Past Anesthesia/Blood Transfusion Reactions: No Reported Reaction Date of Last Stent Placement:: 2010 Past Psychological History: No Psychological Hx Reported Smoking Status: Never smoker Past Alcohol Use History: None Reported Past Drug Use History: None Reported - Past Family History Brother(s) Additional Family Medical History / Comment(s): Patient has 3 brothers with no major medical problems. Sister(s) Additional Family Medical History / Comment(s): Patient has 3 sisters that are all alive. 2 have high blood pressure. One has diabetes and stroke and is 81 years old. And all have history of tremors. Son(s) Additional Family Medical History / Comment(s): Patient has 3 sons and one daughter with no major medical problems. Father Family Medical History: Myocardial Infarction (ND) Additional Family Medical History / Comment(s): Father at age 73 with history of Parkinson's disease, bowel cancer, bone cancer. Mother Family Medical History: Myocardial Infarction (ND) Additional Family Medical History / Comment(s): Mother at age 85 with history of hypertension and dementia. General Exam - General Exam Comments Initial Comments: this is a well-developed well-nourished awake alert male General appearance: alert, lethargic ENT exam: Present: mucous membranes dry Neurological exam: Present: alert, motor sensory deficit (slight left-sided deficit apparently nothing new from his previous. Slight slurred speech which is his norm.) Course Vital Signs 03/23/17 03/23/17 20:16 21:21 Temperature 97.5 F L 97.7 F Pulse Rate 77 66 Respiratory 18 18 Rate Blood Pressure 168/92 155/79 O2 Sat by Pulse 95 100 Oximetry EKG Findings - EKG Results: EKG: interpreted by ERMMarvin, sinus rhythm (sinus rhythm rate of 76 . Interval 170 QRS duration 92 QT since QTC of 4 11/23/1942 moderate criteria for LVH prolonged QT st-t wave changes.) Medical Decision Making - Medical Decision Making I did reevaluate patient several occasions I did discuss findings with his family his family was he is back to his normal state at this time. He is a previous episodes of syncope last 1 being in the end of last year.I also did discuss case with Dr. Nguyen patient will be admitted with consultation by neurology technology applications consultant also a CTA will be performed. - Lab Data Result diagrams: 03/23/17 20:14 03/23/17 20:14 Lab Results 03/23/17 03/23/17 03/23/17 Range/Units 20:14 20:14 20:14 WBC 3.6 L (3.8-10.6) k/uL RBC 3.40 L (4.30-5.90) m/uL Hgb 11.2 L (13.0-17.5) gm/dL Hct 31.7 L (39.0-53.0) % MCV 93.2 (80.0-100.0) fL MCH 32.8 (25.0-35.0) pg MCHC 35.2 (31.0-37.0) g/dL RDW 13.3 (11.5-15.5) % Plt Count 195 (150-450) k/uL Neutrophils % 73 % Lymphocytes % 15 % Monocytes % 6 % Eosinophils % 3 % Basophils % 1 % Neutrophils # 2.7 (1.3-7.7) k/uL Lymphocytes # 0.6 L (1.0-4.8) k/uL Monocytes # 0.2 (0-1.0) k/uL Eosinophils # 0.1 (0-0.7) k/uL Basophils # 0.0 (0-0.2) k/uL PT (9.0-12.0) sec INR (<1.1) APTT (22.0-30.0) sec Sodium 137 (137-145) mmol/L Potassium 3.8 (3.5-5.1) mmol/L Chloride 107 (98-107) mmol/L Carbon Dioxide 22 (22-30) mmol/L Anion Gap 8 mmol/L BUN 19 (9-20) mg/dL Creatinine 0.70 (0.66-1.25) mg/dL Est GFR (MDRD) Af Amer >60 (>60 ml/min/1.73 sqM) Est GFR (MDRD) Non-Af >60 (>60 ml/min/1.73 sqM) Glucose 136 H (74-99) mg/dL POC Glucose (mg/dL) (75-99) mg/dL POC Glu Business Mail Entry Clerk ID Calcium 9.0 (8.4-10.2) mg/dL Magnesium 2.0 (1.6-2.3) mg/dL Total Bilirubin 0.5 (0.2-1.3) mg/dL AST 26 (17-59) U/L ALT 28 (21-72) U/L Alkaline Phosphatase 74 (38-126) U/L Total Creatine Kinase 133 (55-170) U/L CK-MB (CK-2) 2.3 (0.0-2.4) ng/mL CK-MB (CK-2) Rel Index 1.7 Troponin I 0.024 (0.000-0.034) ng/mL Total Protein 5.6 L (6.3-8.2) g/dL Albumin 3.4 L (3.5-5.0) g/dL Urine Color Urine Appearance (Clear) Urine pH (5.0-8.0) Ur Specific [place] (1.001-1.035) Urine Protein (Negative) Urine Glucose (UA) (Negative) Urine Ketones (Negative) Urine Blood (Negative) Urine Nitrite (Negative) Urine Bilirubin (Negative) Urine Urobilinogen (<2.0) mg/dL Ur Leukocyte Esterase (Negative) 03/23/17 03/23/17 03/23/17 Range/Units 20:14 20:19 22:02 WBC (3.8-10.6) k/uL RBC (4.30-5.90) m/uL Hgb (13.0-17.5) gm/dL Hct (39.0-53.0) % MCV (80.0-100.0) fL MCH (25.0-35.0) pg MCHC (31.0-37.0) g/dL RDW (11.5-15.5) % Plt Count (150-450) k/uL Neutrophils % % Lymphocytes % % Monocytes % % Eosinophils % % Basophils % % Neutrophils # (1.3-7.7) k/uL Lymphocytes # (1.0-4.8) k/uL Monocytes # (0-1.0) k/uL Eosinophils # (0-0.7) k/uL Basophils # (0-0.2) k/uL PT 11.2 (9.0-12.0) sec INR 1.1 (<1.1) APTT 23.6 (22.0-30.0) sec Sodium (137-145) mmol/L Potassium (3.5-5.1) mmol/L Chloride (98-107) mmol/L Carbon Dioxide (22-30) mmol/L Anion Gap mmol/L BUN (9-20) mg/dL Creatinine (0.66-1.25) mg/dL Est GFR (MDRD) Af Amer (>60 ml/min/1.73 sqM) Est GFR (MDRD) Non-Af (>60 ml/min/1.73 sqM) Glucose (74-99) mg/dL POC Glucose (mg/dL) 142 H (75-99) mg/dL POC Glu Business Mail Entry Clerk ID Karla Mansfield Calcium (8.4-10.2) mg/dL Magnesium (1.6-2.3) mg/dL Total Bilirubin (0.2-1.3) mg/dL AST (17-59) U/L ALT (21-72) U/L Alkaline Phosphatase (38-126) U/L Total Creatine Kinase (55-170) U/L CK-MB (CK-2) (0.0-2.4) ng/mL CK-MB (CK-2) Rel Index Troponin I (0.000-0.034) ng/mL Total Protein (6.3-8.2) g/dL Albumin (3.5-5.0) g/dL Urine Color Yellow Urine Appearance Clear (Clear) Urine pH 5.5 (5.0-8.0) Ur Specific [place] 1.020 (1.001-1.035) Urine Protein Trace H (Negative) Urine Glucose (UA) Negative (Negative) Urine Ketones Negative (Negative) Urine Blood Negative (Negative) Urine Nitrite Negative (Negative) Urine Bilirubin Negative (Negative) Urine Urobilinogen <2.0 (<2.0) mg/dL Ur Leukocyte Esterase Negative (Negative) - Radiology Data Radiology results: report reviewed (I did review the imaging and reports no acute findings.), image reviewed Critical Care Time Critical Care Time: Yes Critical Care Time: 32 minutes of critical care time which includes initial monitoring of the EMS run and discussed with paramedics upon arrival history physical labs x-rays and review of old charting that was available. Discussion with the patient and family. Reevaluation the patient. Discussed with the physician admission orders and documentation of the above. Disposition Clinical Impression: Syncope and collapse, History of CVA (cerebrovascular accident) Disposition: ADMITTED IP TO THIS [facility] Condition: Stable Referrals: Louis Lawson MD [Primary Care Provider] - 1-2 days
[2017-03-23 20:21] LABS: Glucose,Whole Blood 142 mg/dL (75-99)
[2017-03-23 20:27] LABS: Basophils % (A) 1 %; CH 31.7; CHCM 34.1; Eosinophils # (A) 0.1 k/uL (0-0.7); Eosinophils % (A) 3 %; HCT 31.7 % (39.0-53.0); HDW 2.64; HGB 11.2 gm/dL (13.0-17.5); Luc # (Auto) 0.05; Luc % (Auto) 1; Lymphocytes # (A) 0.6 k/uL (1.0-4.8); Lymphocytes % (A) 15 %; MCH 32.8 pg (25.0-35.0); MCHC 35.2 g/dL (31.0-37.0); MCV 93.2 fL (80.0-100.0); Mean Platelet Volume 7.7; Monocytes # (A) 0.2 k/uL (0-1.0); Monocytes % (A) 6 %; Neutrophils # (A) 2.7 k/uL (1.3-7.7); Neutrophils % (A) 73 %; RDW 13.3 % (11.5-15.5); WBC 3.6 k/uL (3.8-10.6); WBC (Perox) 3.77
[2017-03-23 20:37] LABS: ALT 28 U/L (21-72); AST 26 U/L (17-59); Alkaline Phosphatase 74 U/L (38-126); Anion Gap 8 mmol/L; Blood Urea Nitrogen 19 mg/dL (9-20); Carbon Dioxide 22 mmol/L (22-30); Chloride 107 mmol/L (98-107); Glucose 136 mg/dL (74-99); Non-African American GFR(MDRD) >60 (>60 ml/min/1.73 sqM); Potassium 3.8 mmol/L (3.5-5.1); Sodium 137 mmol/L (137-145); Total Bilirubin 0.5 mg/dL (0.2-1.3); Total Protein 5.6 g/dL (6.3-8.2)
--- NOTE | 2017-03-23 20:56 | CT ---
EXAMINATION TYPE: CT brain wo con DATE OF EXAM: 03/23/2017 COMPARISON: 10/02/2016 HISTORY: syncopal episode without injury CT DLP: 1012.7 mGycm Automated exposure control for dose reduction was used. FINDINGS: There is patchy hypodensity in the periventricular white matter. There is no mass effect nor midline shift. There is no sign of intracranial hemorrhage. The calvarium is intact. There is cerebral cortic al atrophy. IMPRESSION: CEREBRAL ATROPHY AND CHRONIC SMALL VESSEL ISCHEMIA. NO CHANGE.
[2017-03-23 21:06] LABS: Creatine Kinase MB 2.3 ng/mL (0.0-2.4); Troponin I 0.024 ng/mL (0.000-0.034)
--- NOTE | 2017-03-23 21:07 | XR ---
EXAMINATION TYPE: XR chest 2V DATE OF EXAM: 03/23/2017 COMPARISON: 09/30/2016 HISTORY: Syncope TECHNIQUE: Frontal and lateral views of the chest are obtained. FINDINGS: There is no heart failure nor confluent pneumonic infiltrate. Thoracic aorta is atheromato us. There are no hilar masses. Bony thorax is intact. There are chest leads. IMPRESSION: No active cardiopulmonary disease. Normal scarring at the left lung base. No change comp ared to old exam.
[2017-03-23 21:14] LABS: INR 1.1 (<1.1); Partial Thromboplastin Time 23.6 sec (22.0-30.0); Prothrombin Time 11.2 sec (9.0-12.0)
[2017-03-23 22:10] LABS: Appearance,Urine Clear (Clear); Bilirubin,Urine Negative (Negative); Glucose,Urine (UA) Negative (Negative); Ketones,Urine Negative (Negative); Leukocyte Esterase,Urine Negative (Negative); Nitrite,Urine Negative (Negative); PH, Urine 5.5 (5.0-8.0); Protein,Urine Trace (Negative); UA Billing (MACRO vs. MICRO) CHEM; Urobilinogen,Urine <2.0 mg/dL (<2.0)
[2017-03-23] MEDS ORDERED: MORPHINE SULFATE 4 MG/ML SYRINGE IVP STA (22:27)
[2017-03-23] MEDS ORDERED: ONDANSETRON 4 MG/2 ML VIAL IVP STA (22:27)
[2017-03-23] MEDS ORDERED: RX INFO: IV CONTRAST WAS GIVEN 1 EACH MISC MISCELLANE PRN (22:33)
[2017-03-23] MEDS ORDERED: BUTA/APAP/CAF/COD 50-325-40-30 CAP PO PRN (22:34)
[2017-03-23] MEDS ORDERED: BISACODYL 10 MG SUPP RECTAL PRN (22:34)
--- NOTE | 2017-03-23 22:38 | ED ---
Medical Decision Making - Medical Decision Making Patient also had a headache which is not unusual. He did require pain medication. - Lab Data Result diagrams: 03/23/17 20:14 03/23/17 20:14 Lab Results 03/23/17 03/23/17 03/23/17 Range/Units 20:14 20:14 20:14 WBC 3.6 L (3.8-10.6) k/uL RBC 3.40 L (4.30-5.90) m/uL Hgb 11.2 L (13.0-17.5) gm/dL Hct 31.7 L (39.0-53.0) % MCV 93.2 (80.0-100.0) fL MCH 32.8 (25.0-35.0) pg MCHC 35.2 (31.0-37.0) g/dL RDW 13.3 (11.5-15.5) % Plt Count 195 (150-450) k/uL Neutrophils % 73 % Lymphocytes % 15 % Monocytes % 6 % Eosinophils % 3 % Basophils % 1 % Neutrophils # 2.7 (1.3-7.7) k/uL Lymphocytes # 0.6 L (1.0-4.8) k/uL Monocytes # 0.2 (0-1.0) k/uL Eosinophils # 0.1 (0-0.7) k/uL Basophils # 0.0 (0-0.2) k/uL PT (9.0-12.0) sec INR (<1.1) APTT (22.0-30.0) sec Sodium 137 (137-145) mmol/L Potassium 3.8 (3.5-5.1) mmol/L Chloride 107 (98-107) mmol/L Carbon Dioxide 22 (22-30) mmol/L Anion Gap 8 mmol/L BUN 19 (9-20) mg/dL Creatinine 0.70 (0.66-1.25) mg/dL Est GFR (MDRD) Af Amer >60 (>60 ml/min/1.73 sqM) Est GFR (MDRD) Non-Af >60 (>60 ml/min/1.73 sqM) Glucose 136 H (74-99) mg/dL POC Glucose (mg/dL) (75-99) mg/dL POC Glu Breast Buffer ID Calcium 9.0 (8.4-10.2) mg/dL Magnesium 2.0 (1.6-2.3) mg/dL Total Bilirubin 0.5 (0.2-1.3) mg/dL AST 26 (17-59) U/L ALT 28 (21-72) U/L Alkaline Phosphatase 74 (38-126) U/L Total Creatine Kinase 133 (55-170) U/L CK-MB (CK-2) 2.3 (0.0-2.4) ng/mL CK-MB (CK-2) Rel Index 1.7 Troponin I 0.024 (0.000-0.034) ng/mL Total Protein 5.6 L (6.3-8.2) g/dL Albumin 3.4 L (3.5-5.0) g/dL Urine Color Urine Appearance (Clear) Urine pH (5.0-8.0) Ur Specific [place] (1.001-1.035) Urine Protein (Negative) Urine Glucose (UA) (Negative) Urine Ketones (Negative) Urine Blood (Negative) Urine Nitrite (Negative) Urine Bilirubin (Negative) Urine Urobilinogen (<2.0) mg/dL Ur Leukocyte Esterase (Negative) 03/23/17 03/23/17 03/23/17 Range/Units 20:14 20:19 22:02 WBC (3.8-10.6) k/uL RBC (4.30-5.90) m/uL Hgb (13.0-17.5) gm/dL Hct (39.0-53.0) % MCV (80.0-100.0) fL MCH (25.0-35.0) pg MCHC (31.0-37.0) g/dL RDW (11.5-15.5) % Plt Count (150-450) k/uL Neutrophils % % Lymphocytes % % Monocytes % % Eosinophils % % Basophils % % Neutrophils # (1.3-7.7) k/uL Lymphocytes # (1.0-4.8) k/uL Monocytes # (0-1.0) k/uL Eosinophils # (0-0.7) k/uL Basophils # (0-0.2) k/uL PT 11.2 (9.0-12.0) sec INR 1.1 (<1.1) APTT 23.6 (22.0-30.0) sec Sodium (137-145) mmol/L Potassium (3.5-5.1) mmol/L Chloride (98-107) mmol/L Carbon Dioxide (22-30) mmol/L Anion Gap mmol/L BUN (9-20) mg/dL Creatinine (0.66-1.25) mg/dL Est GFR (MDRD) Af Amer (>60 ml/min/1.73 sqM) Est GFR (MDRD) Non-Af (>60 ml/min/1.73 sqM) Glucose (74-99) mg/dL POC Glucose (mg/dL) 142 H (75-99) mg/dL POC Glu Breast Buffer ID Karla Mansfield Calcium (8.4-10.2) mg/dL Magnesium (1.6-2.3) mg/dL Total Bilirubin (0.2-1.3) mg/dL AST (17-59) U/L ALT (21-72) U/L Alkaline Phosphatase (38-126) U/L Total Creatine Kinase (55-170) U/L CK-MB (CK-2) (0.0-2.4) ng/mL CK-MB (CK-2) Rel Index Troponin I (0.000-0.034) ng/mL Total Protein (6.3-8.2) g/dL Albumin (3.5-5.0) g/dL Urine Color Yellow Urine Appearance Clear (Clear) Urine pH 5.5 (5.0-8.0) Ur Specific [place] 1.020 (1.001-1.035) Urine Protein Trace H (Negative) Urine Glucose (UA) Negative (Negative) Urine Ketones Negative (Negative) Urine Blood Negative (Negative) Urine Nitrite Negative (Negative) Urine Bilirubin Negative (Negative) Urine Urobilinogen <2.0 (<2.0) mg/dL Ur Leukocyte Esterase Negative (Negative) Disposition Clinical Impression: Syncope and collapse, History of CVA (cerebrovascular accident), Headache Disposition: ADMITTED IP TO THIS [facility] Condition: Stable Referrals: Louis Lawson MD [Primary Care Provider] - 1-2 days
[2017-03-23 23:37] VITALS: BMI 33.3
[2017-03-23] MEDS: SODIUM CHLORIDE 0.9% 1,000 ML IV SCH (23:40)
--- NOTE | 2017-03-23 23:50 | CT ---
ADDENDUM - Added by Heriberto Brantley MD on 03/30/2017 3:28 PM (-07:00) Addendum: Upon further review and comparison with prior imaging dated 09/30/2016 (CT angiogram head and neck), there is calcified and noncalcified atherosclerotic plaque present in the right carotid bifurcation with the proximal right internal carotid artery transaxial diameter measuring approximately 6 x 4 mm. Distally, the cervical portion of the right internal carotid artery measures 5 x 4 mm transaxial. This indicates no significant stenosis by NASCET criteria relating to the plaque at the carotid bifurcation. Similarly, calcified and noncalcified atherosclerotic plaque is present at the left carotid bifurcation and proximal left internal carotid artery with the diameter at this level measuring 6 x 4 mm transaxial and distally, the cervical portion of the left internal carotid artery measures 6 mm x 4 mm transaxial. This indicates no significant stenosis by NASCET criteria relating to the plaque at the carotid bifurcation. Note, no 3-D MIP reconstructions are submitted only and multiplanar reformats are suboptimal. If 3-D MIP and in plane reconstructions are performed and additional addendum and interpretation can be obtained. EXAM: CTA HEAD INDICATION: 81-year-old male, pain. COMPARISON: CT head without 03/23/2017 and 10/02/2016. DOSE: CTDI is 180.1 mGy and DLP is 338.3 mGy-cm. note, this includes the CTA neck and head examinations performed. DOSE REDUCTION: This CT exam was performed using one or more of the following dose reduction techniques: automated exposure control, adjustment of the mA and/or kV according to patient size, and/or use of iterative reconstruction technique. TECHNIQUE: Multiple axial CT images of the head after the IV administration of contrast material, CTA protocol. Reformatted coronal and sagittal images are submitted. FINDINGS: Anterior circulation: Mild calcification of both carotid siphons. No significant stenosis, occlusion, or aneurysm. The middle cerebral, anterior cerebral, and anterior communicating arteries are normal without stenosis, occlusion, or aneurysm. Incidental note is made of a hypoplastic A1 segment of the right anterior cerebral artery. Posterior circulation: Left vertebral artery is dominant. Vertebral, basilar, and posterior cerebral arteries are patent without evidence of stenosis, occlusion, or aneurysm. Right posterior communicating artery is patent. Postcontrast CT head: No pathologic enhancement. IMPRESSION: Unremarkable intracranial CT angiogram. EXAM: CTA NECK INDICATION: 81-year-old male, pain. COMPARISON: None. DOSE: CTDI is 180.1 mGy and DLP is 338.3 mGy-cm. note, this includes the CTA neck and head examinations performed. DOSE REDUCTION: This CT exam was performed using one or more of the following dose reduction techniques: automated exposure control, adjustment of the mA and/or kV according to patient size, and/or use of iterative reconstruction technique. TECHNIQUE: Multiple axial CT images of the neck after the IV administration of contrast material, CTA protocol. Reformatted coronal and sagittal images are submitted. FINDINGS: Aortic arch: Normal 3 vessel branch pattern is demonstrated. Mild atherosclerotic calcifications of the aortic arch is noted. No evidence of aneurysm or dissection. Right carotid: Calcific and noncalcified atherosclerotic plaque present at the right carotid bifurcation. There is no greater than 35% stenosis of the proximal right internal carotid artery by NASCET criteria. No evidence of dissection. Left carotid:Calcified and noncalcified atherosclerotic plaque of the left carotid bifurcation and proximal left internal carotid artery is demonstrated with no significant stenosis. No evidence of dissection. Vertebral arteries: Left vertebral artery is slightly dominant. No evidence of stenosis, occlusion, or dissection. Soft tissues: Unremarkable as visualized. IMPRESSION: Atherosclerotic plaque of both carotid bifurcations without hemodynamically significant stenoses, as above.
[2017-03-24 00:55] VITALS: RESP 18
[2017-03-24 02:53] LABS: Cholesterol 254 mg/dL (<200); HDL Cholesterol 54 mg/dL (40-60); Triglycerides 112 mg/dL (<150)
[2017-03-24] MEDS ORDERED: MORPHINE SULFATE 4 MG/ML SYRINGE IVP STA (04:10)
[2017-03-24] MEDS ORDERED: ONDANSETRON 4 MG/2 ML VIAL IVP STA (04:11)
[2017-03-24] MEDS: CARVEDILOL 12.5 MG TAB PO SCH ×2 (06:54→17:04)
--- NOTE | 2017-03-24 08:16 | US ---
EXAMINATION TYPE: US carotid duplex BILAT DATE OF EXAM: 03/24/2017 COMPARISON: US 09/30/16 CLINICAL HISTORY: Stenosis. Syncope EXAM MEASUREMENTS: RIGHT: Peak Systolic Velocity (PSV) cm/sec ----- Right CCA: 66.9 ----- Right ICA: 74.6 ----- Right ECA: 63.6 ICA/CCA ratio: 1.1 RIGHT: End Diastole cm/sec ----- Right CCA: 17.5 ----- Right ICA: 28.5 ----- Right ECA: 6.5 LEFT: Peak Systolic Velocity (PSV) cm/sec ----- Left CCA: 80.1 ----- Left ICA: 86.6 ----- Left ECA: 67.2 ICA/CCA ratio: 1.1 LEFT: End Diastole cm/sec ----- Left CCA: 20.6 ----- Left ICA: 28.3 ----- Left ECA: 28.3 VERTEBRALS (direction of flow): Right Vertebral: Antegrade Left Vertebral: Antegrade Calcified plaque bilaterally. Somewhat more seen on this exam than exam 6 months ago. No increased fl ow velocities noted. There is some tortuosity of the vascular structures. IMPRESSION: Atheromatous plaquing without significant flow-limiting stenosis. Findings are similar to the prior examination. Criteria for Assigning % of Stenosis / Diameter reduction (Estimation based on the indirect measurements of the internal carotid artery velocities (ICA PSV). 1. Normal (no stenosis)=ICA PSV < 125 cm/s: ratio < 2.0: ICA EDV<40 cm/s. 2. Less than 50% stenosis=ICA PSV < 125 cm/s: ratio < 2.0: ICA EDV<40 cm/s. 3. 50 to 69% stenosis=ICA PSV of 125 to 230 cm/s: ration 2.0 ? 4.0: ICA EDV 40-100 cm/s. 4. Greater than 70% stenosis to near occlusion= ICA PSV > 230 cm/s: ratio > 4.0: ICA EDV > 100 cm/s. 5. Near occlusion= ICA PSV velocities may be low or undetectable: variable ratio and ICA EDV. 6. Total occlusion=unable to detect flow.
[2017-03-24] MEDS: PRAMIPEXOLE 1 MG TAB PO SCH ×2 (08:35→21:07)
[2017-03-24] MEDS: ASPIRIN 81 MG CHEW PO SCH (08:35)
[2017-03-24] MEDS: CLOPIDOGREL 75 MG TAB PO SCH (08:35)
[2017-03-24] MEDS: cloNIDine HCL 0.1 MG TAB PO SCH ×2 (08:35→21:44)
[2017-03-24] MEDS: MELOXICAM 7.5 MG TAB PO SCH ×2 (08:35→21:07)
[2017-03-24] MEDS: LOSARTAN 50 MG TAB PO SCH (08:35)
[2017-03-24] MEDS: LORATADINE 10 MG TAB PO SCH (08:36)
[2017-03-24] MEDS: DORZOLAMIDE-TIMOLOL 2-0.5% DROPS 10 ML BTL LEFT EYE SCH ×2 (08:36→21:09)
[2017-03-24] MEDS: SODIUM CHLORIDE 0.9% 1,000 ML IV SCH ×2 (08:44→17:04)
[2017-03-24] MEDS ORDERED: NON-FORMULARY DRUG (Ubidecarenone [Co Q-10] 200 MG) PO SCH (09:00)
[2017-03-24] MEDS ORDERED: NON-FORMULARY DRUG (Omega-3 Fatty Acids/Fish Oil [Fish Oil 1,000 Mg Capsule] 1 CAP) PO SCH (09:00)
[2017-03-24] MEDS: ONDANSETRON 4 MG/2 ML VIAL IVP PRN (09:20)
[2017-03-24] MEDS: MORPHINE SULFATE 4 MG/ML SYRINGE IVP PRN (09:20)
[2017-03-24] MEDS: DICLOFENAC SODIUM GEL 100 GM TUBE TOPICAL SCH ×4 (09:47→21:08)
[2017-03-24] MEDS ORDERED: SUMAtriptan SUCCINATE 50 MG TAB PO PRN (14:23)
[2017-03-24] MEDS ORDERED: SUMAtriptan SUCCINATE 6 MG/0.5 ML VIAL SQ STA (14:31)
--- NOTE | 2017-03-24 14:32 | P.HPIM ---
History of Present Illness H&P Date: 03/24/17 Chief Complaint: Syncope This is a 81-year-old male patient of Dr. 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 Patient states that on Wednesday he had a syncopal episode lasted for 2-3 minutes according to what his told him. He states he was sitting up at the time. He denies any mentioned twitching or seizure activity. He does not have a seizure history. He denies any new weaknesses and no change in his speech. Patient had a hospitalization in September of this year and was found to have a 70% stenosis of the left internal carotid artery and was to follow-up with Dr. Londono. Patient's has not done that. He does follow with Dr. Byrd his neurologist. He states his balance is not good but there is no change in this. He does have some weakness on the left side which has been going on for about one month. Patient is also complaining of a headache from his neck and goes across the front of his head and is requesting morphine and Zofran. Patient does state that he does not sleep well and he wakes up frequently during the night and is tired all day. He has not had a sleep study done. CAT scan of the brain showed cerebral atrophy and chronic small vessel ischemic change. Chest x-ray showed no acute cardiopulmonary disease. CTA of the head was unremarkable. Atherosclerotic plaque in both carotid bifurcations without hemodynamically significant stenosis. Carotid ultrasound shows atheromatosis plaquing without significant flow limiting stenosis. Patient has been admitted to the selective care unit. Consult with Dr. Badillo added and EEG ordered Review of Systems All systems: negative Constitutional: Reports chronic pain, Denies chills, Denies fever Eyes: denies blurred vision, denies pain Ears, nose, mouth and throat: Reports headache, Denies sore throat Cardiovascular: Reports syncope, Denies chest pain, Denies shortness of breath Respiratory: Denies cough Gastrointestinal: Denies abdominal pain, Denies diarrhea, Denies nausea, Denies vomiting Musculoskeletal: Denies myalgias Integumentary: Denies pruritus, Denies rash Neurological: Denies numbness, Denies weakness Psychiatric: Denies anxiety, Denies depression Endocrine: Denies fatigue, Denies weight change Past Medical History Past Medical History: Blood Disorder, Coronary Artery Disease (CAD), Cancer, Chest Pain / Angina, CVA/TIA, GERD/Reflux, Hyperlipidemia, Hypertension, Neurologic Disorder, Osteoarthritis (OA), Syncope, Vascular Disorder Additional Past Medical History / Comment(s): migraines anemia BPH hypertension GERD coronary artery disease carotid stenosis migraines occipital uti,neuralgia RESTLESS leg syndrome, neuropathy.parkinsons,prostate cancer -2012 -had chemo- radiation,stroke 2004 and tia's x5,stress test 09-30-15,kidney stones, had pne vaccine after age 66 not sure of date. History of Any Multi-Drug Resistant Organisms: None Reported Past Surgical History: Back Surgery, Heart Catheterization With Stent, Hernia Repair, Orthopedic Surgery Additional Past Surgical History / Comment(s): right knee replacement 06/19/15, both knees have been replaced, bilateral Surgery, EGD and colonoscopy 2010 and 2015, left heart catheterization with the PCI of the LAD 2012,colonoscopy/egd, supraorbtal nerve percutaneous nerve stimulator trial 09-21-12,severasl prostate bx,laser vaporization for prostate cancer, epidural steroid inj 2012 Past Anesthesia/Blood Transfusion Reactions: No Reported Reaction Date of Last Stent Placement:: 2010 Past Psychological History: No Psychological Hx Reported Smoking Status: Never smoker - Past Family History Brother(s) Additional Family Medical History / Comment(s): Patient has 3 brothers with no major medical problems. Sister(s) Additional Family Medical History / Comment(s): Patient has 3 sisters that are all alive. 2 have high blood pressure. One has diabetes and stroke and is 81 years old. And all have history of tremors. Son(s) Additional Family Medical History / Comment(s): Patient has 3 sons and one daughter with no major medical problems. Father Family Medical History: Myocardial Infarction ([place]) Additional Family Medical History / Comment(s): Father at age 73 with history of Parkinson's disease, bowel cancer, bone cancer. Mother Family Medical History: Myocardial Infarction ([place]) Additional Family Medical History / Comment(s): Mother at age 85 with history of hypertension and dementia. Medications and Allergies Home Medications Medication Instructions Recorded Confirmed Type Carvedilol [Coreg] 25 mg PO BID-W/MEALS 05/21/14 03/23/17 History cloNIDine HCL [Catapres] 0.05 mg PO BID 05/21/14 03/23/17 History Famotidine [Pepcid] 20 mg PO HS 07/24/15 03/23/17 History Montelukast [Singulair] 10 mg PO HS 09/19/15 03/23/17 History Buta/APAP/Caf/Cod 19-156-81-30 2 cap PO Q4H PRN MDD 4 capsules 08/20/16 History [Fioricet w/Cod 96-944-26-30MG] Dorzolamide HCl/Timolol Maleat 1 drop LEFT EYE BID 08/20/16 03/23/17 History [Cosopt Eye Drops] Lactulose 10 gm PO BID PRN 08/20/16 03/23/17 History Latanoprost [Xalatan 0.005%] 1 drop BOTH EYES HS 08/20/16 03/23/17 History Loratadine [Claritin] 10 mg PO DAILY 08/20/16 03/23/17 History Meloxicam [Mobic] 7.5 mg PO BID 08/20/16 03/23/17 History Aspirin EC [Ecotrin Low Dose] 81 mg PO DAILY 03/05/17 03/23/17 History Bisacodyl [Dulcolax] 10 mg RECTAL DAILY PRN 03/05/17 03/23/17 History Cholecalciferol [Vitamin D3] 1,000 unit PO HS 03/05/17 03/23/17 History Clopidogrel [Plavix] 75 mg PO DAILY 03/05/17 03/23/17 History Diclofenac Sodium [Voltaren Gel] 2 gram TOPICAL QID PRN 03/05/17 03/23/17 History Losartan [Cozaar] 50 mg PO DAILY 03/05/17 03/23/17 History [place]-3 Fatty Acids/Fish Oil [Fish 1 cap PO DAILY 03/05/17 03/23/17 History Oil 1,000 mg Capsule] Pramipexole [Mirapex] 1 mg PO DAILY 03/05/17 03/23/17 History Tamsulosin HCl [Flomax] 0.4 mg PO HS 03/05/17 03/23/17 History Ubidecarenone [Co Q-10] 200 mg PO DAILY 03/05/17 03/23/17 History Pramipexole [Mirapex] 2 mg PO HS 03/23/17 03/23/17 History Allergies Allergy/AdvReac Type Severity Reaction Status Date / Time metoclopramide [From Reglan] AdvReac SHAKES Verified 03/23/17 21:24 oxycodone HCl AdvReac Nausea & Verified 03/23/17 21:24 [From OxyContin] Vomiting Physical Exam Vitals: Vital Signs Temp Pulse Pulse Resp BP BP BP 03/24/17 07:24 62 151/71 03/24/17 05:30 69 18 140/82 03/24/17 04:00 66 18 03/24/17 03:30 96.8 F L 66 18 139/78 03/24/17 01:30 63 18 138/80 03/24/17 00:30 88 18 125/82 03/24/17 00:22 86 16 03/23/17 23:30 96.9 F L 86 18 158/108 164/114 03/23/17 22:32 97.6 F 85 16 152/85 03/23/17 21:21 97.7 F 66 18 155/79 03/23/17 20:16 97.5 F L 77 18 168/92 Pulse Ox 03/24/17 07:24 03/24/17 05:30 03/24/17 04:00 03/24/17 03:30 97 03/24/17 01:30 03/24/17 00:30 03/24/17 00:22 03/23/17 23:30 98 03/23/17 22:32 99 03/23/17 21:21 100 03/23/17 20:16 95 Intake and Output 03/23/17 03/24/17 03/24/17 22:59 06:59 14:59 Intake Total 800 Output Total 725 200 Balance 75 -200 Intake: IV 800 Sodium Chloride 0.9% 1, 800 000 ml @ 100 mls/hr IV . Q10H [facility] Rx#:[id number] Output: Urine 725 200 Other: Voiding Method Urinal # Voids 1 1 Weight 90.718 kg 87 kg General appearance: no acute distress, obese - EENT Eyes: anicteric sclerae, PERRLA, no ptosis, no scleral icterus, normal appearance ENT: hard of hearing, normal oropharynx, no thrush Ears: bilateral: normal - Neck Neck: no lymphadenopathy, normal ROM, no rigidity, no stridor, no thyromegaly Carotids: bilateral: upstroke delayed Thyroid: bilateral: normal size - Respiratory Respiratory: bilateral: diminished, negative: dullness, rales, rhonchi, wheezing , prolonged expiration, prolonged inspiration - Cardiovascular Rhythm: regular Heart sounds: normal: S1, S2 Abnormal Heart Sounds: no systolic murmur, no S3 Gallop, no S4 Gallop, no click - Gastrointestinal General gastrointestinal: normal bowel sounds, soft, no splenomegaly, no tenderness, no umbilical hernia, no ventral hernia - Genitourinary Male genitourinary: enlarged prostate - Integumentary Integumentary: normal, normal turgor - Neurologic Neurologic: CNII-XII intact - Musculoskeletal Musculoskeletal: gait normal, generalized weakness, strength equal bilaterally - Psychiatric Psychiatric: A&O x's 3, appropriate affect, intact judgment & insight Results CBC & Chem 7: 03/23/17 20:14 03/23/17 20:14 Labs: Abnormal Lab Results - Last 24 Hours (Table) 03/23/17 03/23/17 03/23/17 Range/Units 20:14 20:14 20:17 WBC 3.6 L (3.8-10.6) k/uL RBC 3.40 L (4.30-5.90) m/uL Hgb 11.2 L (13.0-17.5) gm/dL Hct 31.7 L (39.0-53.0) % Lymphocytes # 0.6 L (1.0-4.8) k/uL Glucose 136 H (74-99) mg/dL POC Glucose (mg/dL) (75-99) mg/dL Total Protein 5.6 L (6.3-8.2) g/dL Albumin 3.4 L (3.5-5.0) g/dL Cholesterol 254 H (<200) mg/dL LDL Cholesterol, Calc 178 H (0-99) mg/dL Urine Protein (Negative) 03/23/17 03/23/17 Range/Units 20:19 22:02 WBC (3.8-10.6) k/uL RBC (4.30-5.90) m/uL Hgb (13.0-17.5) gm/dL Hct (39.0-53.0) % Lymphocytes # (1.0-4.8) k/uL Glucose (74-99) mg/dL POC Glucose (mg/dL) 142 H (75-99) mg/dL Total Protein (6.3-8.2) g/dL Albumin (3.5-5.0) g/dL Cholesterol (<200) mg/dL LDL Cholesterol, Calc (0-99) mg/dL Urine Protein Trace H (Negative) Thrombosis Risk Factor Assmnt - DVT/VTE Prophylaxis DVT/VTE Prophylaxis: Pharmacologic Prophylaxis ordered - Choose All That Apply Each Risk Factor Represents 3 Points: Age 75 years or older Thrombosis Risk Factor Assessment Total Risk Factor Score: 3 Thrombosis Risk Factor Assessment Level: Moderate Risk Assessment and Plan Plan: 1. Acute syncopal episode. Telemetry, neuro checks, neurology consultation from [facility]. 2. CAD post-PCI of the LAD. Continue Coreg 25 mg orally twice every day, Plavix 75 mg orally once every day, fish oil. 3. Hypertension and hypertensive cardiovascular disease. Continue patient on losartan 50 mg orally once every day, Coreg 25 mg orally twice every day and clonidine 0.05 mg orally twice every day. 4. Hyperlipidemia. Continue Crestor 40 mg orally once every day. 5. Migraine headache, presenting now with what appears to be a tension headache. Imitrex ordered 1. Patient states Fioricet does not help. 6. Parkinson. Continue Mirapex. 7. Enlarged prostate. Continue Flomax 0.4 g orally once every day. 8. Recurrent syncope. Possibly related to autonomic dysfunction. 9. Osteoarthritis post bilateral total knee arthroplasties. Discontinue Mobic. 10. Gastritis. Continue omeprazole 20 mg orally once every day. 11. DVT prophylaxis. Lovenox 40 mg subcutaneously every 24 hours. 12. GI prophylaxis. Omeprazole. 13. Admit to inpatient. Estimate a length of stay 2 midnights. Discharge plan: Return home Impression and plan of care have been directed as dictated by the signing physician. Suly Gallo nurse practitioner acting as scribe for signing physician.
--- NOTE | 2017-03-24 16:19 | P.CNNES ---
History of Present Illness Consult date: 03/24/17 Requesting physician: Sharri Nguyen Reason for Consult: Syncope History of Present Illness: Patient is an 81-year-old male who is being seen on 03/24/2017 by the neurology service per the request of Dr. Nguyen for syncope. Patient has significant history for CAD, hypertension, TIA, syncopal episodes, migraine headaches, Parkinson's, chronic back pain. Patient had syncopal episode that lasted 2-3 minutes. Patient was sitting at the kitchen table and was noticed to be slumped over. Patient does follow with Dr. Byrd in the outpatient setting. Patient did have carotid Dopplers done earlier this year and was supposed to follow up with Dr. Londono but has not done so. Patient complains of ongoing severe headache. CTA of the head was unremarkable. Computed tomography scan of the brain showed cerebral atrophy and chronic small vessel ischemic changes. Patient was given morphine and Zofran which patient states has not helped his headache. At the time of my evaluation, patient's resting comfortably in bed and appears to be in no acute distress. Review of Systems REVIEW OF SYSTEMS: Otherwise unremarkable and noncontributory. Past Medical History Past Medical History: Blood Disorder, Coronary Artery Disease (CAD), Cancer, Chest Pain / Angina, CVA/TIA, GERD/Reflux, Hyperlipidemia, Hypertension, Neurologic Disorder, Osteoarthritis (OA), Syncope, Vascular Disorder Additional Past Medical History / Comment(s): migraines anemia BPH hypertension GERD coronary artery disease carotid stenosis migraines occipital uti,neuralgia RESTLESS leg syndrome, neuropathy.parkinsons,prostate cancer -2012 -had chemo- radiation,stroke 2005 and tia's x5,stress test 09-30-15,kidney stones, had pne vaccine after age 66 not sure of date. History of Any Multi-Drug Resistant Organisms: None Reported Past Surgical History: Back Surgery, Heart Catheterization With Stent, Hernia Repair, Orthopedic Surgery Additional Past Surgical History / Comment(s): right knee replacement 06/19/15, both knees have been replaced, bilateral Surgery, EGD and colonoscopy 2010 and 2015, left heart catheterization with the PCI of the LAD 2012,colonoscopy/egd, supraorbtal nerve percutaneous nerve stimulator trial 09-21-12,severasl prostate bx,laser vaporization for prostate cancer, epidural steroid inj 2012 Past Anesthesia/Blood Transfusion Reactions: No Reported Reaction Date of Last Stent Placement:: 2010 Past Psychological History: No Psychological Hx Reported Smoking Status: Never smoker - Past Family History Brother(s) Additional Family Medical History / Comment(s): Patient has 3 brothers with no major medical problems. Sister(s) Additional Family Medical History / Comment(s): Patient has 3 sisters that are all alive. 2 have high blood pressure. One has diabetes and stroke and is 81 years old. And all have history of tremors. Son(s) Additional Family Medical History / Comment(s): Patient has 3 sons and one daughter with no major medical problems. Father Family Medical History: Myocardial Infarction ([place]) Additional Family Medical History / Comment(s): Father at age 73 with history of Parkinson's disease, bowel cancer, bone cancer. Mother Family Medical History: Myocardial Infarction ([place]) Additional Family Medical History / Comment(s): Mother at age 85 with history of hypertension and dementia. Medications and Allergies Home Medications Medication Instructions Recorded Confirmed Type Carvedilol [Coreg] 25 mg PO BID-W/MEALS 05/21/14 03/23/17 History cloNIDine HCL [Catapres] 0.05 mg PO BID 05/21/14 03/23/17 History Famotidine [Pepcid] 20 mg PO HS 07/24/15 03/23/17 History Montelukast [Singulair] 10 mg PO HS 09/19/15 03/23/17 History Buta/APAP/Caf/Cod 90-236-29-30 2 cap PO Q4H PRN MDD 4 capsules 08/20/16 History [Fioricet w/Cod 58-689-62-30MG] Dorzolamide HCl/Timolol Maleat 1 drop LEFT EYE BID 08/20/16 03/23/17 History [Cosopt Eye Drops] Lactulose 10 gm PO BID PRN 08/20/16 03/23/17 History Latanoprost [Xalatan 0.005%] 1 drop BOTH EYES HS 08/20/16 03/23/17 History Loratadine [Claritin] 10 mg PO DAILY 08/20/16 03/23/17 History Meloxicam [Mobic] 7.5 mg PO BID 08/20/16 03/23/17 History Aspirin EC [Ecotrin Low Dose] 81 mg PO DAILY 03/05/17 03/23/17 History Bisacodyl [Dulcolax] 10 mg RECTAL DAILY PRN 03/05/17 03/23/17 History Cholecalciferol [Vitamin D3] 1,000 unit PO HS 03/05/17 03/23/17 History Clopidogrel [Plavix] 75 mg PO DAILY 03/05/17 03/23/17 History Diclofenac Sodium [Voltaren Gel] 2 gram TOPICAL QID PRN 03/05/17 03/23/17 History Losartan [Cozaar] 50 mg PO DAILY 03/05/17 03/23/17 History [place]-3 Fatty Acids/Fish Oil [Fish 1 cap PO DAILY 03/05/17 03/23/17 History Oil 1,000 mg Capsule] Pramipexole [Mirapex] 1 mg PO DAILY 03/05/17 03/23/17 History Tamsulosin HCl [Flomax] 0.4 mg PO HS 03/05/17 03/23/17 History Ubidecarenone [Co Q-10] 200 mg PO DAILY 03/05/17 03/23/17 History Pramipexole [Mirapex] 2 mg PO HS 03/23/17 03/23/17 History Allergies Allergy/AdvReac Type Severity Reaction Status Date / Time metoclopramide [From Reglan] AdvReac SHAKES Verified 03/23/17 21:24 oxycodone HCl AdvReac Nausea & Verified 03/23/17 21:24 [From OxyContin] Vomiting Physical Examination - Vital Signs Vital Signs: Vital Signs Temp Pulse Pulse Resp BP BP BP 03/24/17 15:43 96.8 F L 83 18 145/92 03/24/17 12:40 96.8 F L 55 L 18 162/98 03/24/17 08:35 96.6 F L 59 L 18 170/81 03/24/17 07:24 62 151/71 03/24/17 05:30 69 18 140/82 03/24/17 04:00 66 18 03/24/17 03:30 96.8 F L 66 18 139/78 03/24/17 01:30 63 18 138/80 03/24/17 00:30 88 18 125/82 03/24/17 00:22 86 16 03/23/17 23:30 96.9 F L 86 18 158/108 164/114 03/23/17 22:32 97.6 F 85 16 152/85 03/23/17 21:21 97.7 F 66 18 155/79 03/23/17 20:16 97.5 F L 77 18 168/92 Pulse Ox 03/24/17 15:43 97 03/24/17 12:40 96 03/24/17 08:35 98 03/24/17 07:24 03/24/17 05:30 03/24/17 04:00 03/24/17 03:30 97 03/24/17 01:30 03/24/17 00:30 03/24/17 00:22 03/23/17 23:30 98 03/23/17 22:32 99 03/23/17 21:21 100 03/23/17 20:16 95 Intake and Output 03/24/17 03/24/17 03/24/17 06:59 14:59 22:59 Intake Total 800 200 Output Total 725 1200 Balance 75 -1000 Intake: IV 800 Sodium Chloride 0.9% 1, 800 000 ml @ 100 mls/hr IV . Q10H [facility] Rx#:[id number] Oral 200 Output: Urine 725 1200 Other: Voiding Method Urinal Urinal Urinal # Voids 1 1 Weight 87 kg PHYSICAL EXAM: GENERAL APPEARANCE: Patient is a well-developed, male who appears to be in no acute distress. HEENT: Normocephalic, atraumatic, no facial asymmetry is seen. Neck is supple with no masses felt. CARDIOVASCULAR: Regular rate and rhythm. ABDOMEN: Nontender, nondistended. EXTREMITIES: Show no edema or clubbing. NEUROLOGICAL EXAM: Patient is awake, alert, and oriented 3. Speech and language are normal. Strength is 5/5 on the right upper and lower extremity and 5-/5 in left upper and lower extremity. Sensory exam is normal to light touch in all 4 extremities. No facial asymmetry seen on cranial nerve testing. No tremors or seizure-like activity is noted. Results - Laboratory Findings CBC and BMP: 03/23/17 20:14 03/23/17 20:14 Abnormal Lab Findings: Abnormal Labs 03/23/17 03/23/17 03/23/17 20:14 20:14 20:17 WBC 3.6 L RBC 3.40 L Hgb 11.2 L Hct 31.7 L Lymphocytes # 0.6 L Glucose 136 H POC Glucose (mg/dL) Total Protein 5.6 L Albumin 3.4 L Cholesterol 254 H LDL Cholesterol, Calc 178 H Urine Protein 03/23/17 03/23/17 20:19 22:02 WBC RBC Hgb Hct Lymphocytes # Glucose POC Glucose (mg/dL) 142 H Total Protein Albumin Cholesterol LDL Cholesterol, Calc Urine Protein Trace H Assessment and Plan (1) Headache Status: Acute (2) History of CVA (cerebrovascular accident) Status: Acute (3) Syncope and collapse Status: Acute (4) Carotid stenosis Status: Acute Plan: It is reported the patient has had syncopal episode and came to [facility] emergency room for further evaluation. As previously mentioned, CTA of the brain showed no acute intracranial abnormality. CT of the brain did show atrophy and small vessel ischemic disease. Carotid Dopplers were negative for any hemodynamically significant stenosis. Due to his ongoing intractable headache, I will order an MRI of the brain. I will order an EEG. Syncopal episode likely due to autonomic dysfunction. I will check orthostatics. Continue neurological checks. Continue Fioricet and Imitrex as needed. Patient 's mild left-sided weakness is from prior CVA. Vital signs are stable. I will continue to follow with you. Further recommendations to follow after testing. Thank you for allowing me to participate in the care of your patient. Feel free to call with any questions or concerns. I performed an examination of the patient and discussed the management with the [employer]. I have reviewed the [employer] notes and agree with the findings and plan of care.
[2017-03-24] MEDS ORDERED: MELATONIN 5 MG TABLET PO SCH (21:00)
[2017-03-24] MEDS: MONTELUKAST 10 MG TAB PO SCH (21:07)
[2017-03-24] MEDS: TAMSULOSIN 0.4 MG CAP.ER.24H PO SCH (21:08)
[2017-03-24] MEDS: CHOLECALCIFEROL 1,000 UNIT TAB PO SCH (21:08)
[2017-03-24] MEDS: CYCLOBENZAPRINE 10 MG TAB PO SCH (21:08)
[2017-03-24] MEDS: LATANOPROST 0.005% OPHTH DROPS 2.5 ML BTL BOTH EYES SCH (21:09)
[2017-03-25] MEDS: ONDANSETRON 4 MG/2 ML VIAL IVP PRN ×3 (06:11→23:41)
[2017-03-25] MEDS: MORPHINE SULFATE 4 MG/ML SYRINGE IVP PRN ×3 (06:11→23:41)
[2017-03-25] MEDS: CARVEDILOL 12.5 MG TAB PO SCH ×2 (06:23→16:45)
[2017-03-25] MEDS: SODIUM CHLORIDE 0.9% 1,000 ML IV SCH ×2 (06:23→16:36)
[2017-03-25] MEDS: LORATADINE 10 MG TAB PO SCH (08:32)
[2017-03-25] MEDS: LOSARTAN 50 MG TAB PO SCH (08:32)
[2017-03-25] MEDS: CLOPIDOGREL 75 MG TAB PO SCH (08:32)
[2017-03-25] MEDS: DORZOLAMIDE-TIMOLOL 2-0.5% DROPS 10 ML BTL LEFT EYE SCH ×2 (08:32→21:04)
[2017-03-25] MEDS: MELOXICAM 7.5 MG TAB PO SCH ×2 (08:32→21:05)
[2017-03-25] MEDS: cloNIDine HCL 0.1 MG TAB PO SCH ×2 (08:32→21:04)
[2017-03-25] MEDS: ASPIRIN 81 MG CHEW PO SCH (08:32)
[2017-03-25] MEDS: ENOXAPARIN 40 MG/0.4 ML SYRINGE SQ SCH (08:32)
[2017-03-25] MEDS: PRAMIPEXOLE 1 MG TAB PO SCH ×2 (08:32→21:05)
[2017-03-25] MEDS: DICLOFENAC SODIUM GEL 100 GM TUBE TOPICAL SCH ×4 (08:33→21:13)
[2017-03-25 10:41] LABS: Glucose,Whole Blood 110 mg/dL (75-99)
[2017-03-25] MEDS ORDERED: RX INFO: IV CONTRAST WAS GIVEN 1 EACH MISC MISCELLANE PRN ×2 (10:41→10:52)
--- NOTE | 2017-03-25 11:12 | CT ---
EXAMINATION TYPE: CT brain wo con DATE OF EXAM: 03/25/2017 COMPARISON: Previous study dated 03/23/2017. HISTORY: Possible CVA CT DLP: 944.80 mGycm Automated exposure control for dose reduction was used. FINDINGS: There are generalized changes of sulcal prominence and ventriculomegaly, compatible with mild atrophi c change. There is diffuse periventricular white matter lucency, compatible with chronic white matter ischemic change. There is no acute focal lesion, mass effect or midline shift identified. I do not s ee evidence of intracranial blood. The orbits are normal. There is vascular calcification. There is mild mucoperiosteal thickening involving the right frontal sinus. The remainder the paranasa l sinuses and mastoids are clear. There is no depressed skull fracture. IMPRESSION: 1. NO ACUTE INTRACRANIAL ABNORMALITY. 2. MILD ATROPHY. 3. CHRONIC WHITE MATTER ISCHEMIC CHANGE. 4. 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
--- NOTE | 2017-03-25 12:04 | P.PN ---
Subjective This is a 81-year-old male patient of Dr. 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 Patient states that on Wednesday he had a syncopal episode lasted for 2-3 minutes according to what his told him. He states he was sitting up at the time. He denies any mentioned twitching or seizure activity. He does not have a seizure history. He denies any new weaknesses and no change in his speech. Patient had a hospitalization in September of this year and was found to have a 70% stenosis of the left internal carotid artery and was to follow-up with Dr. Londono. Patient's has not done that. He does follow with Dr. Byrd his neurologist. He states his balance is not good but there is no change in this. He does have some weakness on the left side which has been going on for about one month. Patient is also complaining of a headache from his neck and goes across the front of his head and is requesting morphine and Zofran. Patient does state that he does not sleep well and he wakes up frequently during the night and is tired all day. He has not had a sleep study done. CAT scan of the brain showed cerebral atrophy and chronic small vessel ischemic change. Chest x-ray showed no acute cardiopulmonary disease. CTA of the head was unremarkable. Atherosclerotic plaque in both carotid bifurcations without hemodynamically significant stenosis. Carotid ultrasound shows atheromatosis plaquing without significant flow limiting stenosis. Patient has been admitted to the selective care unit. Consult with Dr. Badillo added and EEG ordered 03/25: Patient has been seen by neurology with thoughts that syncopal episode likely related to autonomic dysfunction. MRI and EEG are pending. Patient's headache was much better and he denied any nausea. She states that he is feeling much better today and is found sitting up in a chair. We have asked for radiology to review the carotid CTAs as patient had a previously diagnosed 70% stenosis of the left internal carotid artery and repeat studies do not show this. Patient was planned for discharge home later today after MRI report was reported and EEG was obtained but subsequently patient had another syncopal episode and he was unresponsive according to the nurses. He was returned to bed and has gone down for repeat CAT scan and if we have asked for MRI to be done. Patient did have sinus bradycardia in the 40s but did not have any syncopal episode with this. During the syncopal episode his heart rate was in the 50s. Cardiology consult added. Objective - Vital Signs Vital signs: Vital Signs Temp 97.2 F L 03/25/17 08:00 Pulse 62 03/25/17 08:00 Resp 18 03/25/17 08:00 BP 128/79 03/25/17 08:00 Pulse Ox 95 03/25/17 08:00 Intake & Output 03/24/17 03/25/17 03/25/17 18:59 06:59 18:59 Intake Total 325 1000 180 Output Total 1200 Balance -875 1000 180 Weight 86.2 kg Intake: IV 1000 Sodium Chloride 0.9% 1, 1000 000 ml @ 100 mls/hr IV . Q10H [facility] Rx#:[id number] Oral 325 180 Output: Urine 1200 Other: Voiding Method Urinal # Voids 1 - Exam General appearance: no acute distress, obese - EENT Eyes: anicteric sclerae, PERRLA, no ptosis, no scleral icterus, normal appearance ENT: hard of hearing, normal oropharynx, no thrush Ears: bilateral: normal - Neck Neck: no lymphadenopathy, normal ROM, no rigidity, no stridor, no thyromegaly Carotids: bilateral: upstroke delayed Thyroid: bilateral: normal size - Respiratory Respiratory: bilateral: diminished, negative: dullness, rales, rhonchi, wheezing , prolonged expiration, prolonged inspiration - Cardiovascular Rhythm: regular Heart sounds: normal: S1, S2 Abnormal Heart Sounds: no systolic murmur, no S3 Gallop, no S4 Gallop, no click - Gastrointestinal General gastrointestinal: normal bowel sounds, soft, no splenomegaly, no tenderness, no umbilical hernia, no ventral hernia - Genitourinary Male genitourinary: enlarged prostate - Integumentary Integumentary: normal, normal turgor - Neurologic Neurologic: CNII-XII intact - Musculoskeletal Musculoskeletal: gait normal, generalized weakness, strength equal bilaterally - Psychiatric Psychiatric: A&O x's 3, appropriate affect, intact judgment & insight - Labs CBC & Chem 7: 03/23/17 20:14 03/23/17 20:14 Labs: Abnormal Lab Results - Last 24 Hours (Table) 03/25/17 Range/Units 10:40 POC Glucose (mg/dL) 110 H (75-99) mg/dL Assessment and Plan Plan: 1. Acute syncopal episode of unclear etiology, possible seizure activity is patient was witnessed for syncopal episode. Telemetry, neuro checks, neurology consultation from Dr. Badillo, EEG. Repeat CAT scan, MRI of the brain, EEG today. Cardiology consult requested 2. CAD post-PCI of the LAD. Continue Coreg 25 mg orally twice every day, Plavix 75 mg orally once every day, fish oil. 3. Hypertension and hypertensive cardiovascular disease. Continue patient on losartan 50 mg orally once every day, Coreg 25 mg orally twice every day and clonidine 0.05 mg orally twice every day. 4. Hyperlipidemia. Continue Crestor 40 mg orally once every day. 5. Migraine headache, presenting now with what appears to be a tension headache. Imitrex ordered 1. Patient states Fioricet does not help. 6. Parkinson. Continue Mirapex. 7. Enlarged prostate. Continue Flomax 0.4 g orally once every day. 8. Recurrent syncope. Possibly related to autonomic dysfunction. 9. Osteoarthritis post bilateral total knee arthroplasties. Discontinue Mobic. 10. Gastritis. Continue omeprazole 20 mg orally once every day. 11. DVT prophylaxis. Lovenox 40 mg subcutaneously every 24 hours. 12. GI prophylaxis. Omeprazole. 13. Admit to inpatient. Estimate a length of stay 2 midnights. Discharge plan: Return home Impression and plan of care have been directed as dictated by the signing physician. Suly Gallo nurse practitioner acting as scribe for signing physician.
[2017-03-25 12:25] LABS: INR 1.1 (<1.1); Prothrombin Time 10.8 sec (9.0-12.0)
[2017-03-25 12:27] LABS: Basophils % (A) 1 %; CH 31.1; CHCM 33.2; Eosinophils # (A) 0.2 k/uL (0-0.7); Eosinophils % (A) 4 %; HCT 37.4 % (39.0-53.0); HDW 2.55; HGB 12.5 gm/dL (13.0-17.5); Luc % (Auto) 2; Lymphocytes # (A) 0.5 k/uL (1.0-4.8); Lymphocytes % (A) 12 %; MCH 31.5 pg (25.0-35.0); MCHC 33.5 g/dL (31.0-37.0); MCV 94.1 fL (80.0-100.0); Mean Platelet Volume 6.5; Monocytes # (A) 0.3 k/uL (0-1.0); Monocytes % (A) 6 %; Neutrophils # (A) 3.3 k/uL (1.3-7.7); Neutrophils % (A) 76 %; RBC 3.97 m/uL (4.30-5.90); WBC 4.3 k/uL (3.8-10.6); WBC (Perox) 4.41
[2017-03-25 12:32] LABS: Anion Gap 7 mmol/L; Blood Urea Nitrogen 22 mg/dL (9-20); Carbon Dioxide 23 mmol/L (22-30); Chloride 104 mmol/L (98-107); Non-African American GFR(MDRD) >60 (>60 ml/min/1.73 sqM); Sodium 134 mmol/L (137-145)
[2017-03-25 12:37] LABS: Partial Thromboplastin Time 20.2 sec (22.0-30.0)
--- NOTE | 2017-03-25 12:50 | MR ---
EXAMINATION TYPE: MR brain wo con DATE OF EXAM: 03/25/2017 COMPARISON: 09/30/2016 HISTORY: Migraines, Confused, Agitated CONTRAST: Performed utilizing 0 mL intravenous MultiHance gadolinium contrast. TECHNIQUE: Multiplanar, multiecho imaging on a 3.0 Aleida magnet is performed through the brain. Stud y is not performed within 24 hours of arrival to the hospital. Some motion artifact is present The craniovertebral junction is normal. The pituitary is normal. Diffusion-weighted imaging is performed. No abnormal hyperintensity is present to suggest an acute i ntracranial infarct or acute ischemic change. Motion artifact is present. There is periventricular white matter hyperintensity and coronal T2-weighted images suggestive for ch ronic white matter ischemic changes. This was present on the October 09, 2016 comparison. Ventricles and sulci are prominent for the patient age. Short examination was performed. IMPRESSIONS: 1. Periventricular white matter chronic appearing ischemic changes. 2. No acute suspicious changes 3. Atrophy
--- NOTE | 2017-03-25 13:10 | CT ---
EXAMINATION TYPE: CT angio head neck DATE OF EXAM: 03/25/2017 HISTORY: Possible stroke COMPARISON: Previous study dated 03/23/2017 CT DLP: 376.70 mGycm. Automated Exposure Control for Dose Reduction was Utilized. TECHNIQUE: CTA scan of the neck is performed with IV Contrast, patient injected with 65 mL of Omnipa que 300, axial images are obtained, coronal and sagittal reformatted images are reviewed. Three-D rec onstructed images are created on an independent workstation and reviewed. FINDINGS: There are emphysematous changes throughout the lungs. There are degrees dilated measuring 4 cm. At the level of the proximal arch, the aorta is aneurysmal measuring 3.8 cm. At the level of the proximal descending thoracic aorta the aorta is aneurysmal measuring 3 cm. Vertebral body height and alignment are maintained. Atlantoaxial relationships are normal. There is a grade 1 degenerative spondylolisthesis of C4 on C5. There is disc space loss and hypertrophic spondy losis at C5-6 and C6-7. There is significant facet arthropathy at C3-4 and C4-5. There is uncovertebr al joint disease throughout the cervical spine most marked at C6-7. The thyroid enhances homogeneously. There is no significant adenopathy. The major salivary glands are normal. The parapharyngeal soft tissues are normal. The oropharyngeal soft tissues are asymmetric with efface ment on the right. Laryngeal soft tissues are normal. Intracranial structures are normal without evidence of abnormal enhancement. There is mild mucoperiosteal thickening of the ethmoid sinuses. There is calcified plaque present bilaterally level of the carotid bulbs. There is a 10% by diameter stenosis involving the proximal left ICA. There is a 57% by diameter stenosis of the proximal right I CA. Vertebral arteries are codominant. CTA of the [place] is normal. The right posterior communicating artery is visualized. The le ft is not. There is no sizable aneurysm. IMPRESSION: 1. 57% BY DIAMETER STENOSIS OF THE PROXIMAL RIGHT ICA. 2. 10% BY DIAMETER STENOSIS OF THE PROXIMAL LEFT ICA. 3. NORMAL CTA OF THE [place]. 3. EMPHYSEMATOUS CHANGE THROUGHOUT THE LUNGS. 4. THORACIC AORTIC ANEURYSM. 5. DEGENERATIVE CHANGES WITHIN THE SPINE.
[2017-03-25] MEDS ORDERED: levETIRAcetam IV 1,000 MG in SALINE 1 100ML.BAG IVPB STA (14:02)
--- NOTE | 2017-03-25 14:31 | P.PN ---
Subjective Principal diagnosis: Patient is a pleasant 81-year-old male who is being followed by the neurology service for syncope. According to staff, patient was doing much better this morning was up and around 8 breakfast and was doing well. When nurses checked on him it appeared patient was rigid and staring into space. A code stroke was called and patient was basically unresponsive for approximately an hour. Patient slowly came around and is currently awake and alert. Patient continues to be confused and mildly lethargic. Family is at the bedside and states this resembles his syncopal episodes at home however this is much worse and lasted much longer. She had EEG done yesterday and results are pending. Patient had repeat CT and CTA which were without any acute abnormalities. Patient had MRI of the brain which showed chronic white matter changes. No acute suspicious changes. At the time of my evaluation, patient is awake, alert , and oriented 2 oriented 2. Objective - Vital Signs Vital signs: Vital Signs Temp 97.2 F L 03/25/17 08:00 Pulse 62 03/25/17 08:00 Resp 18 03/25/17 08:00 BP 128/79 03/25/17 08:00 Pulse Ox 95 03/25/17 08:00 Intake & Output 03/24/17 03/25/17 03/25/17 18:59 06:59 18:59 Intake Total 325 1000 180 Output Total 1200 250 Balance -875 1000 -70 Weight 86.2 kg Intake: IV 1000 Sodium Chloride 0.9% 1, 1000 000 ml @ 100 mls/hr IV . Q10H [facility] Rx#:[id number] Oral 325 180 Output: Urine 1200 250 Other: Voiding Method Urinal # Voids 1 - Exam PHYSICAL EXAM: GENERAL APPEARANCE: Patient is a well-developed, male who appears to be in no acute distress. HEENT: Normocephalic, atraumatic, mild left facial droop Neck is supple with no masses felt. CARDIOVASCULAR: Regular rate and rhythm. ABDOMEN: Nontender, nondistended. EXTREMITIES: Show no edema or clubbing. NEUROLOGICAL EXAM: Patient is awake, alert, and oriented 2. Speech and language are normal. Strength is full in all 4 extremities. Sensory exam to light touch is normal in all 4 extremities. Mild left facial droop on cranial nerve testing. No tremors noted. It appears that patient did have seizure- like activity earlier this morning. Patient does present with symptoms consistent with postictal state. - Labs CBC & Chem 7: 03/25/17 11:59 03/25/17 11:59 Labs: Abnormal Lab Results - Last 24 Hours (Table) 03/25/17 03/25/17 03/25/17 Range/Units 10:40 11:59 11:59 RBC 3.97 L (4.30-5.90) m/uL Hgb 12.5 L (13.0-17.5) gm/dL Hct 37.4 L (39.0-53.0) % Lymphocytes # 0.5 L (1.0-4.8) k/uL APTT 20.2 L (22.0-30.0) sec Sodium (137-145) mmol/L BUN (9-20) mg/dL POC Glucose (mg/dL) 110 H (75-99) mg/dL 03/25/17 Range/Units 11:59 RBC (4.30-5.90) m/uL Hgb (13.0-17.5) gm/dL Hct (39.0-53.0) % Lymphocytes # (1.0-4.8) k/uL APTT (22.0-30.0) sec Sodium 134 L (137-145) mmol/L BUN 22 H (9-20) mg/dL POC Glucose (mg/dL) (75-99) mg/dL Assessment and Plan (1) Headache Status: Acute (2) History of CVA (cerebrovascular accident) Status: Acute (3) Syncope and collapse Status: Acute (4) Carotid stenosis Status: Acute (5) Seizure Status: Acute Plan: It appears patient had possible seizure activity earlier today. Patient became rigid and staring off into space. Patient was unresponsive for approximately an hour. Code stroke team was called. No meds were given. Patient slowly came around and still appears to be post ictal. EEG was done and results are pending. I will load the patient with 1000 mg Keppra IV. I'll continue patient on Keppra 750 mg IV twice a day. Continue seizure precautions. CT no acute intracranial abnormality. CTA was done which showed normal [place]. There is stenosis in the left and right ICA however there is no hemodynamically significant stenosis. MRI was done and showed chronic white matter ischemic changes but no acute suspicious changes. Continue neurological checks. I will continue to follow with you. Further recommendations to follow. I performed an examination of the patient and discussed the management with the GROUT PUMP OPERATOR. I have reviewed the GROUT PUMP OPERATOR notes and agree with the findings and plan of care.
[2017-03-25] MEDS ORDERED: ASPIRIN 325 MG TAB PO STA (15:25)
[2017-03-25] MEDS: amLODIPine 5 MG TAB PO SCH (17:43)
[2017-03-25] MEDS: CHOLECALCIFEROL 1,000 UNIT TAB PO SCH (21:04)
[2017-03-25] MEDS: LATANOPROST 0.005% OPHTH DROPS 2.5 ML BTL BOTH EYES SCH (21:04)
[2017-03-25] MEDS: TAMSULOSIN 0.4 MG CAP.ER.24H PO SCH (21:04)
[2017-03-25] MEDS: levETIRAcetam IV 750 MG in SODIUM CHLORIDE 0.9% 100 ML IVPB SCH (21:04)
[2017-03-25] MEDS: CYCLOBENZAPRINE 10 MG TAB PO SCH (21:05)
[2017-03-25] MEDS: MONTELUKAST 10 MG TAB PO SCH (23:40)
[2017-03-26 06:48] LABS: CH 31.3; CHCM 33.2; HCT 32.9 % (39.0-53.0); HDW 2.56; MCH 31.6 pg (25.0-35.0); MCHC 33.4 g/dL (31.0-37.0); MCV 94.5 fL (80.0-100.0); RBC 3.48 m/uL (4.30-5.90); RDW 12.8 % (11.5-15.5); WBC 2.8 k/uL (3.8-10.6)
[2017-03-26] MEDS: CARVEDILOL 12.5 MG TAB PO SCH ×2 (06:50→17:38)
[2017-03-26] MEDS: SODIUM CHLORIDE 0.9% 1,000 ML IV SCH ×3 (06:51→23:37)
[2017-03-26] MEDS: ONDANSETRON 4 MG/2 ML VIAL IVP PRN ×3 (06:51→23:37)
[2017-03-26] MEDS: MORPHINE SULFATE 4 MG/ML SYRINGE IVP PRN ×3 (06:51→23:37)
[2017-03-26 07:10] LABS: ALT 24 U/L (21-72); AST 20 U/L (17-59); Alkaline Phosphatase 69 U/L (38-126); Anion Gap 4 mmol/L; Blood Urea Nitrogen 17 mg/dL (9-20); Calcium 8.5 mg/dL (8.4-10.2); Carbon Dioxide 25 mmol/L (22-30); Chloride 106 mmol/L (98-107); Glucose 95 mg/dL (74-99); Non-African American GFR(MDRD) >60 (>60 ml/min/1.73 sqM); Potassium 3.9 mmol/L (3.5-5.1); Sodium 135 mmol/L (137-145); Total Bilirubin 0.6 mg/dL (0.2-1.3)
[2017-03-26] MEDS: amLODIPine 5 MG TAB PO SCH (08:47)
[2017-03-26] MEDS: CLOPIDOGREL 75 MG TAB PO SCH (08:51)
[2017-03-26] MEDS: DICLOFENAC SODIUM GEL 100 GM TUBE TOPICAL SCH ×4 (08:51→22:28)
[2017-03-26] MEDS: cloNIDine HCL 0.1 MG TAB PO SCH ×2 (08:52→19:39)
[2017-03-26] MEDS: ASPIRIN 81 MG CHEW PO SCH (08:52)
[2017-03-26] MEDS: LORATADINE 10 MG TAB PO SCH (08:53)
[2017-03-26] MEDS: DORZOLAMIDE-TIMOLOL 2-0.5% DROPS 10 ML BTL LEFT EYE SCH ×2 (08:53→19:40)
[2017-03-26] MEDS: MELOXICAM 7.5 MG TAB PO SCH ×2 (08:53→19:39)
[2017-03-26] MEDS: ENOXAPARIN 40 MG/0.4 ML SYRINGE SQ SCH (08:53)
[2017-03-26] MEDS: LOSARTAN 50 MG TAB PO SCH (08:54)
[2017-03-26] MEDS: PRAMIPEXOLE 1 MG TAB PO SCH ×2 (08:54→19:39)
[2017-03-26] MEDS: levETIRAcetam IV 750 MG in SODIUM CHLORIDE 0.9% 100 ML IVPB SCH ×2 (08:57→19:38)
--- NOTE | 2017-03-26 10:22 | ECHOF ---
Referral Reason:syncope MEASUREMENTS -------- HEIGHT: 165.1 cm WEIGHT: 86.2 kg BP: 125/72 RVIDd: 3.1 cm (< 3.3) IVSd: 1.6 cm (0.6 - 1.1) LVIDd: 3.7 cm (3.9 - 5.3) LVPWd: 1.4 cm (0.6 - 1.1) IVSs: 1.6 cm LVIDs: 2.8 cm LVPWs: 1.7 cm LA Diam: 4.6 cm (2.7 - 3.8) LAESV Index (A-L): 36.96 ml/m Ao Diam: 3.3 cm (2.0 - 3.7) AV Cusp: 1.7 cm (1.5 - 2.6) LA Diam: 4.8 cm (2.7 - 3.8) MV EXCURSION: 14.447 mm (> 18.000) MV EF SLOPE: 62 mm/s (70 - 150) EPSS: 0.5 cm MV E Shant: 0.51 m/s MV DecT: 249 ms MV A Shant: 0.96 m/s MV E/A Ratio: 0.53 AV maxP.33 mmHg AV meanP.16 mmHg RAP: 5.00 mmHg RVSP: 40.52 mmHg FINDINGS -------- Sinus rhythm. This was a technically adequate study. There is mild concentric left ventricular hypertrophy. Overall left ventricular systolic function is low-normal with, an EF between 50 - 55 %. The right ventricle is normal in size. LA is moderately dilated 34-39 ml/m2 The right atrial size is normal. There is mild aortic valve sclerosis. There is no evidence of aortic regurgitation. Mild mitral annular calcification present. Mild mitral regurgitation is present. Mild tricuspid regurgitation present. There is mild pulmonary hypertension. The right ventricular systolic pressure, as measured by Doppler, is 40.52mmHg. Trace/mild (physiologic) pulmonic regurgitation. The aortic root size is normal. There is no pericardial effusion. CONCLUSIONS -------- 1. There is mild concentric left ventricular hypertrophy. 2. Trace/mild (physiologic) pulmonic regurgitation. 3. The aortic root size is normal. 4. There is no pericardial effusion. 5. Overall left ventricular systolic function is low-normal with, an EF between 50 - 55 %. 6. LA is moderately dilated 34-39 ml/m2 7. There is mild aortic valve sclerosis. 8. Mild mitral annular calcification present. 9. Mild mitral regurgitation is present. 10. Mild tricuspid regurgitation present. 11. There is mild pulmonary hypertension. 12. The right ventricular systolic pressure, as measured by Doppler, is 40.52mmHg. CONTACT FINGER ASSEMBLER: Dian Brooks RDCS
--- NOTE | 2017-03-26 10:41 | CONS ---
Mr. Rivera is an 81-year-old gentleman who is seen for evaluation of syncope. Patient's medical records reviewed and the history was obtained from the patient as well as the patient's family member. This patient has a history of hypertension, prior history of CAD, TIA, and has several episodes of syncope in the last 6 months to 1 year. Patient was admitted with episode of syncope yesterday. He was sitting at the kitchen table and he was noticed to be slumped over and patient was subsequently brought over here. According to the , during the couple of episodes of syncope, patient has been noticed to be hypotensive and when they laid him on the floor, his blood pressure goes up and he gets better. At times he also becomes sweaty and diaphoretic at that time. Today, while patient was doing fairly well. He went for a shower and subsequently he was sitting on the chair and he became unresponsive. Patient's initial blood pressure was 130 when he was doing well. When he became unresponsive, his eyes he was staring and his blood pressure was 103. He was not significantly clammy. He took about an hour for patient to get completely back to normal. No definite seizures were noted but the patient was incontinent. Patient has been seen by neurologist here and extensive workup including the CT angiogram of the head was normal. MRI was normal which was done for persistent headache. Past history includes a history of chronic occipital headaches and neuralgia, history of restless leg syndrome, history of Parkinson's disease. He has prior history of stroke, prior history of stent done in 2009, hernia repair and orthopedic surgery. Patient's home medication include Coreg 25 mg b.i.d., Clonidine 0.5 mg b.i.d., Pepcid, Fioricet, Claritin, Mobic, Dulcolex, Plavix 75 mg daily, Cozaar once a day and Mirapex. PHYSICAL EXAMINATION: At present reveals an 81-year-old gentleman who is alert, awake and does not appear to be in any acute distress. Patient's blood pressure now is 160/108 mmHg. HEENT examination is negative. Neck is supple. There is no significant increase in jugular venous pressure. Both the carotid pulses are felt. There is no bruit. Chest is symmetrical. HEART: The PMI is not felt. First and second heart sounds are normal. There is no evidence of any murmur. Lungs are clinically clear to auscultation and percussion. Abdomen is soft. Liver and spleen are not enlarged. Bowel sounds are heard. EXTREMITIES: Peripheral pulsations are 2+. EKG shows normal sinus rhythm without any acute ischemic changes. Patient's second troponin is normal. Patient's laboratory values are normal. FINAL IMPRESSION: This patient is admitted with syncope. A possibility of orthostatic hypotension or recurrent vasovagal syncope needs to be considered. Patient had a prolonged episode of unresponsiveness this morning while in the hospital. No arrhythmias were noted. Patient was hypotensive as compared to his usual blood pressure and orthostatic hypotensive possibility needs to be considered. Neurology is going to look for EEG and rule out any seizure disorder. We will obtain echo and Doppler study. Tomorrow we will check the patient for any orthostatic changes. TU
--- NOTE | 2017-03-26 13:50 | P.PN ---
Subjective Principal diagnosis: Patient is a pleasant 81-year-old male who is being followed by the neurology service for syncope. Patient appears to be doing much better than yesterday. He is awake alert and conversant. No further seizure episodes reported. Family is at the bedside and states yesterday's episode of unresponsiveness resembles his syncopal episodes at home however this is much worse and lasted much longer. Patient had EEG done which was normal except for bradycardic rate on EKG lead. Patient does complain of chronic headaches. Patient states he had a greater occipital nerve block in the past with short- lived relief. Patient had repeat CT and CTA which were without any acute abnormalities. Patient had MRI of the brain which showed chronic white matter changes. No acute suspicious changes. Patient was loaded with Keppra and is now on Keppra 750 mg IV twice a day. At the time of my evaluation, patient is awake, alert, and oriented 3. Objective - Vital Signs Vital signs: Vital Signs Temp 97.8 F 03/26/17 07:51 Pulse 60 03/26/17 07:51 Resp 18 03/26/17 07:51 BP 128/72 03/26/17 07:51 Pulse Ox 95 03/26/17 07:51 Intake & Output 03/25/17 03/26/17 03/26/17 18:59 06:59 18:59 Intake Total 300 900 500 Output Total 550 750 250 Balance -250 150 250 Weight 86.5 kg Intake: IV 900 200 Sodium Chloride 0.9% 1, 800 200 000 ml @ 100 mls/hr IV . Q10H [facility] Rx#:[id number] levETIRAcetam IV 750 mg 100 In Sodium Chloride 0.9% 100 ml @ 400 mls/hr IVPB Q12HR [facility] Rx#:[id number] Intake, IV Titration 100 Amount levETIRAcetam IV 750 mg 100 In Sodium Chloride 0.9% 100 ml @ 400 mls/hr IVPB Q12HR [facility] Rx#:[id number] Oral 300 200 Output: Urine 550 750 250 Other: Voiding Method Urinal Urinal # Voids 2 - Exam PHYSICAL EXAM: GENERAL APPEARANCE: Patient is a well-developed, male who appears to be in no acute distress. HEENT: Normocephalic, atraumatic, mild left facial droop from prior stroke Neck is supple with no masses felt. CARDIOVASCULAR: Regular rate and rhythm. ABDOMEN: Nontender, nondistended. EXTREMITIES: Show no edema or clubbing. NEUROLOGICAL EXAM: Patient is awake, alert, and oriented 3. Speech and language are normal. Strength is full in all 4 extremities. Sensory exam to light touch is normal in all 4 extremities. Mild left facial droop on cranial nerve testing. No tremors noted. No seizure-like activity reported. - Labs CBC & Chem 7: 03/26/17 06:22 03/26/17 06:22 Labs: Abnormal Lab Results - Last 24 Hours (Table) 03/26/17 03/26/17 Range/Units 06:22 06:22 WBC 2.8 L (3.8-10.6) k/uL RBC 3.48 L (4.30-5.90) m/uL Hgb 11.0 L (13.0-17.5) gm/dL Hct 32.9 L (39.0-53.0) % Sodium 135 L (137-145) mmol/L Total Protein 5.0 L (6.3-8.2) g/dL Albumin 2.9 L (3.5-5.0) g/dL Assessment and Plan (1) Headache Status: Acute (2) History of CVA (cerebrovascular accident) Status: Acute (3) Syncope and collapse Status: Acute (4) Carotid stenosis Status: Acute (5) Seizure Status: Acute Plan: It appears patient had seizure activity yesterday. is at the bedside and states patient is back to baseline. As mentioned above, EEG was normal except for bradycardic EKG lead. I will continue patient on Keppra 750 mg IV twice a day. Continue seizure precautions. As for patient's headaches, continue Fioricet with codeine. Patient may benefit from a sphenopalatine block as an outpatient. CT no acute intracranial abnormality. CTA was done which showed normal [place]. There is stenosis in the left and right ICA however there is no hemodynamically significant stenosis. Patient to follow up with Dr. Londono as outpatient. MRI was done and showed chronic white matter ischemic changes but no acute suspicious changes. Continue neurological checks. Continue PT/OT. I will continue to follow with you. Further recommendations to follow. I performed an examination of the patient and discussed the management with the LEGAL RECOVERY SPECIALIST. I have reviewed the LEGAL RECOVERY SPECIALIST notes and agree with the findings and plan of care.
--- NOTE | 2017-03-26 16:07 | P.PN ---
Subjective Principal diagnosis: Syncope is an 81-year-old gentleman who was seen in consultation yesterday by Dr. VC Haynes. Patient presented to the hospital following a syncopal episode. He has history of hypertension, coronary artery disease, TIA, several episodes of syncope over the past one year. He was seen by neurology in consultation who felt the patient was having seizure activity, he was initiated on Keppra. Echocardiogram with Doppler study was performed which revealed an ejection fraction of 50-55%. Patient has had no significant orthostasis noted. Heart rate remaining in the 60s. Objective - Vital Signs Vital signs: Vital Signs Temp 97.8 F 03/26/17 07:51 Pulse 60 03/26/17 12:00 Resp 18 03/26/17 07:51 BP 121/74 03/26/17 13:00 Pulse Ox 95 03/26/17 12:00 Intake & Output 03/25/17 03/26/17 03/26/17 18:59 06:59 18:59 Intake Total 300 900 500 Output Total 550 750 250 Balance -250 150 250 Weight 86.5 kg Intake: IV 900 200 Sodium Chloride 0.9% 1, 800 200 000 ml @ 100 mls/hr IV . Q10H MOI Rx#:[id number] levETIRAcetam IV 750 mg 100 In Sodium Chloride 0.9% 100 ml @ 400 mls/hr IVPB Q12HR MOI Rx#:[id number] Intake, IV Titration 100 Amount levETIRAcetam IV 750 mg 100 In Sodium Chloride 0.9% 100 ml @ 400 mls/hr IVPB Q12HR MOI Rx#:[id number] Oral 300 200 Output: Urine 550 750 250 Other: Voiding Method Urinal Urinal # Voids 2 - Exam PHYSICAL EXAMINATION: HEENT: [Head is atraumatic, normocephalic. Pupils equal, round. Neck is supple. There is no elevated jugular venous pressure.] HEART EXAMINATION: [Heart S1, S2 normal. No murmur or gallop heard.] CHEST EXAMINATION:[ Lungs are clear to auscultation and precussion. No chest wall tenderness is noted on palpation or with deep breathing.] ABDOMEN: [ Soft, nontender. Bowel sounds are heard. No organomegaly noted]. EXTREMITIES:[ 2+ peripheral pulses with no evidence of peripheral edema and no calf tenderness noted]. NEUROLOGIC [patient is awake, alert and oriented -3.] . - Labs CBC & Chem 7: 03/26/17 06:22 03/26/17 06:22 Labs: Abnormal Lab Results - Last 24 Hours (Table) 03/26/17 03/26/17 Range/Units 06:22 06:22 WBC 2.8 L (3.8-10.6) k/uL RBC 3.48 L (4.30-5.90) m/uL Hgb 11.0 L (13.0-17.5) gm/dL Hct 32.9 L (39.0-53.0) % Sodium 135 L (137-145) mmol/L Total Protein 5.0 L (6.3-8.2) g/dL Albumin 2.9 L (3.5-5.0) g/dL Assessment and Plan (1) Parkinson disease Status: Acute (2) HTN (hypertension) Status: Acute (3) Hyperlipemia Status: Acute (4) Headache Status: Acute (5) History of CVA (cerebrovascular accident) Status: Acute (6) Seizure Status: Acute (7) Syncope and collapse Status: Acute Plan: From cardiology's perspective, we will follow this patient with you now on an as-needed basis only, we will make him a follow-up appointment in the office post discharge. We also recommend that upon discharge the patient have a 30 day event monitor placed. DNP note has been reviewed, I agree with a documented findings and plan of care. Patient was seen and examined.
[2017-03-26] MEDS: CHOLECALCIFEROL 1,000 UNIT TAB PO SCH (19:39)
[2017-03-26] MEDS: CYCLOBENZAPRINE 10 MG TAB PO SCH (19:39)
[2017-03-26] MEDS: TAMSULOSIN 0.4 MG CAP.ER.24H PO SCH (19:39)
[2017-03-26] MEDS: MONTELUKAST 10 MG TAB PO SCH (19:39)
[2017-03-26] MEDS: LATANOPROST 0.005% OPHTH DROPS 2.5 ML BTL BOTH EYES SCH (19:40)
--- NOTE | 2017-03-26 20:24 | P.PN ---
Subjective This is a 81-year-old male patient of Dr. 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 Patient states that on Wednesday he had a syncopal episode lasted for 2-3 minutes according to what his told him. He states he was sitting up at the time. He denies any mentioned twitching or seizure activity. He does not have a seizure history. He denies any new weaknesses and no change in his speech. Patient had a hospitalization in September of this year and was found to have a 70% stenosis of the left internal carotid artery and was to follow-up with Dr. Londono. Patient's has not done that. He does follow with Dr. Byrd his neurologist. He states his balance is not good but there is no change in this. He does have some weakness on the left side which has been going on for about one month. Patient is also complaining of a headache from his neck and goes across the front of his head and is requesting morphine and Zofran. Patient does state that he does not sleep well and he wakes up frequently during the night and is tired all day. He has not had a sleep study done. CAT scan of the brain showed cerebral atrophy and chronic small vessel ischemic change. Chest x-ray showed no acute cardiopulmonary disease. CTA of the head was unremarkable. Atherosclerotic plaque in both carotid bifurcations without hemodynamically significant stenosis. Carotid ultrasound shows atheromatosis plaquing without significant flow limiting stenosis. Patient has been admitted to the selective care unit. Consult with Dr. Badillo added and EEG ordered 03/25: Patient has been seen by neurology with thoughts that syncopal episode likely related to autonomic dysfunction. MRI and EEG are pending. Patient's headache was much better and he denied any nausea. She states that he is feeling much better today and is found sitting up in a chair. We have asked for radiology to review the carotid CTAs as patient had a previously diagnosed 70% stenosis of the left internal carotid artery and repeat studies do not show this. Patient was planned for discharge home later today after MRI report was reported and EEG was obtained but subsequently patient had another syncopal episode and he was unresponsive according to the nurses. He was returned to bed and has gone down for repeat CAT scan and if we have asked for MRI to be done. Patient did have sinus bradycardia in the 40s but did not have any syncopal episode with this. During the syncopal episode his heart rate was in the 50s. Cardiology consult added. Objective - Vital Signs Vital signs: Vital Signs Temp 97.8 F 03/26/17 07:51 Pulse 60 03/26/17 16:00 Resp 18 03/26/17 07:51 BP 153/93 03/26/17 16:00 Pulse Ox 95 03/26/17 16:00 Intake & Output 03/26/17 03/26/17 03/27/17 06:59 18:59 06:59 Intake Total 900 1200 Output Total 750 250 Balance 150 950 Weight 86.5 kg Intake: IV 900 600 Sodium Chloride 0.9% 1, 800 600 000 ml @ 100 mls/hr IV . Q10H MOI Rx#:[id number] levETIRAcetam IV 750 mg 100 In Sodium Chloride 0.9% 100 ml @ 400 mls/hr IVPB Q12HR MOI Rx#:[id number] Intake, IV Titration 100 Amount levETIRAcetam IV 750 mg 100 In Sodium Chloride 0.9% 100 ml @ 400 mls/hr IVPB Q12HR MOI Rx#:[id number] Oral 500 Output: Urine 750 250 Other: Voiding Method Urinal # Voids 2 - Labs CBC & Chem 7: 03/26/17 06:22 03/26/17 06:22 Labs: Abnormal Lab Results - Last 24 Hours (Table) 03/26/17 03/26/17 Range/Units 06:22 06:22 WBC 2.8 L (3.8-10.6) k/uL RBC 3.48 L (4.30-5.90) m/uL Hgb 11.0 L (13.0-17.5) gm/dL Hct 32.9 L (39.0-53.0) % Sodium 135 L (137-145) mmol/L Total Protein 5.0 L (6.3-8.2) g/dL Albumin 2.9 L (3.5-5.0) g/dL Assessment and Plan Plan: Assessment and Plan Plan: 1. Acute syncopal episode of unclear etiology, possible seizure activity is patient was witnessed for syncopal episode in about an hour in the hospital or last 03/25/2017 without tonic-clonic activity however he does have prolonged with IgG and his episode at this point seems to sternal rub, MRI of the brain was performed no evidence of acute CVA. Telemetry, neuro checks, neurology consultation from Dr. Badillo, EEG. Repeat CAT scan, MRI of the brain, EEG today. Cardiology consult requested and patient was loaded on IV Keppra, for highly suspicious seizure episode during this hospitalization, patient and was counseled that patient per [place] law is not going to drive for 6 months or until seizure free for 6 months. 2. CAD post-PCI of the LAD. Continue Coreg 25 mg orally twice every day, Plavix 75 mg orally once every day, fish oil. 3. Hypertension and hypertensive cardiovascular disease. Continue patient on losartan 50 mg orally once every day, Coreg 25 mg orally twice every day and clonidine 0.05 mg orally twice every day. 4. Hyperlipidemia. Continue Crestor 40 mg orally once every day. 5. Migraine headache, presenting now with what appears to be a tension headache. Imitrex ordered 1. Patient states Fioricet does not help. 6. Parkinson. Continue Mirapex. 7. Enlarged prostate. Continue Flomax 0.4 g orally once every day. 8. Recurrent syncope. Possibly related to autonomic dysfunction. 9. Osteoarthritis post bilateral total knee arthroplasties. Discontinue Mobic. 10. Gastritis. Continue omeprazole 20 mg orally once every day. 11. DVT prophylaxis. Lovenox 40 mg subcutaneously every 24 hours. 12. GI prophylaxis. Omeprazole. 13. Admit to inpatient. Estimate a length of stay 2 midnights. Dissipate discharge in the morning provided he has therapeutic levels of Keppra
[2017-03-27] MEDS: SODIUM CHLORIDE 0.9% 1,000 ML IV SCH (05:31)
[2017-03-27] MEDS: CARVEDILOL 12.5 MG TAB PO SCH (06:26)
[2017-03-27] MEDS: MORPHINE SULFATE 4 MG/ML SYRINGE IVP PRN (06:31)
[2017-03-27] MEDS: ONDANSETRON 4 MG/2 ML VIAL IVP PRN (06:31)
[2017-03-27 06:50] LABS: Basophils % (A) 1 %; CH 31.1; CHCM 33.3; Eosinophils # (A) 0.2 k/uL (0-0.7); Eosinophils % (A) 6 %; HCT 32.9 % (39.0-53.0); HDW 2.62; HGB 11.1 gm/dL (13.0-17.5); Luc # (Auto) 0.06; Luc % (Auto) 2; Lymphocytes # (A) 0.5 k/uL (1.0-4.8); Lymphocytes % (A) 17 %; MCH 31.7 pg (25.0-35.0); MCHC 33.9 g/dL (31.0-37.0); MCV 93.8 fL (80.0-100.0); Mean Platelet Volume 6.7; Monocytes # (A) 0.2 k/uL (0-1.0); Monocytes % (A) 6 %; Neutrophils # (A) 2.2 k/uL (1.3-7.7); Neutrophils % (A) 68 %; RBC 3.51 m/uL (4.30-5.90); RDW 12.9 % (11.5-15.5); WBC 3.2 k/uL (3.8-10.6); WBC (Perox) 3.36
[2017-03-27 06:57] LABS: Anion Gap 5 mmol/L; Blood Urea Nitrogen 15 mg/dL (9-20); Calcium 8.6 mg/dL (8.4-10.2); Carbon Dioxide 27 mmol/L (22-30); Chloride 105 mmol/L (98-107); Glucose 92 mg/dL (74-99); Non-African American GFR(MDRD) >60 (>60 ml/min/1.73 sqM); Potassium 3.9 mmol/L (3.5-5.1); Sodium 137 mmol/L (137-145)
[2017-03-27] MEDS: DICLOFENAC SODIUM GEL 100 GM TUBE TOPICAL SCH ×2 (10:01→15:27)
[2017-03-27] MEDS: ENOXAPARIN 40 MG/0.4 ML SYRINGE SQ SCH (10:02)
[2017-03-27] MEDS: DORZOLAMIDE-TIMOLOL 2-0.5% DROPS 10 ML BTL LEFT EYE SCH (10:02)
[2017-03-27] MEDS: cloNIDine HCL 0.1 MG TAB PO SCH (10:03)
[2017-03-27] MEDS: MELOXICAM 7.5 MG TAB PO SCH (10:03)
[2017-03-27] MEDS: CLOPIDOGREL 75 MG TAB PO SCH (10:03)
[2017-03-27] MEDS: LOSARTAN 50 MG TAB PO SCH (10:04)
[2017-03-27] MEDS: amLODIPine 5 MG TAB PO SCH (10:04)
[2017-03-27] MEDS: LORATADINE 10 MG TAB PO SCH (10:04)
[2017-03-27] MEDS: PRAMIPEXOLE 1 MG TAB PO SCH (10:04)
[2017-03-27] MEDS: ASPIRIN 81 MG CHEW PO SCH (10:11)
[2017-03-27] MEDS: levETIRAcetam IV 750 MG in SODIUM CHLORIDE 0.9% 100 ML IVPB SCH (11:01)
--- NOTE | 2017-03-27 12:10 | P.DS ---
Providers Date of admission: 03/23/17 22:30 Attending physician: Sharri Nguyen Consults: 03/23/17 22:32 Consult Physician Routine Consulting Provider: Fely Badillo Consult Reason/Comments: syncope Do you want consulting provider notified?: Yes 03/25/17 10:59 Consult Physician Routine Consulting Provider: Cornell Haynes Consult Reason/Comments: syncope Do you want consulting provider notified?: Yes Primary care physician: Louis Renny [facility] Course: This is a 81-year-old male patient of Dr. 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 Patient states that on Wednesday he had a syncopal episode lasted for 2-3 minutes according to what his told him. He states he was sitting up at the time. He denies any mentioned twitching or seizure activity. He does not have a seizure history. He denies any new weaknesses and no change in his speech. Patient had a hospitalization in September of this year and was found to have a 70% stenosis of the left internal carotid artery and was to follow-up with Dr. Londono. Patient's has not done that. He does follow with Dr. Byrd his neurologist. He states his balance is not good but there is no change in this. He does have some weakness on the left side which has been going on for about one month. Patient is also complaining of a headache from his neck and goes across the front of his head and is requesting morphine and Zofran. Patient does state that he does not sleep well and he wakes up frequently during the night and is tired all day. He has not had a sleep study done. CAT scan of the brain showed cerebral atrophy and chronic small vessel ischemic change. Chest x-ray showed no acute cardiopulmonary disease. CTA of the head was unremarkable. Atherosclerotic plaque in both carotid bifurcations without hemodynamically significant stenosis. Carotid ultrasound shows atheromatosis plaquing without significant flow limiting stenosis. Patient has been admitted to the selective care unit. Consult with Dr. Badillo added and EEG ordered 03/25: Patient has been seen by neurology with thoughts that syncopal episode likely related to autonomic dysfunction. MRI and EEG are pending. Patient's headache was much better and he denied any nausea. She states that he is feeling much better today and is found sitting up in a chair. We have asked for radiology to review the carotid CTAs as patient had a previously diagnosed 70% stenosis of the left internal carotid artery and repeat studies do not show this. Patient was planned for discharge home later today after MRI report was reported and EEG was obtained but subsequently patient had another syncopal episode and he was unresponsive according to the nurses. He was returned to bed and has gone down for repeat CAT scan and if we have asked for MRI to be done. Patient did have sinus bradycardia in the 40s but did not have any syncopal episode with this. During the syncopal episode his heart rate was in the 50s. Cardiology consult added. 03/27: Patient had echocardiogram that showed mild left ventricular hypertrophy, ejection fraction between 50-55% LA is moderately dilated, mild mitral regurgitation and mild pulmonary hypertension. MRI of brain showed chronic ischemic changes but no acute suspicious changes. CT and CTA showed no acute abnormalities. The patient has been up ambulating in the hallway with his walker without difficulty. Patient will be switched from IV Keppra to oral Keppra 750 mg twice a day. He will follow up with neurology on outpatient basis. Discharge diagnoses Plan: 1. Acute syncopal episode of unclear etiology, possible seizure activity 2. CAD post-PCI of the LAD. 3. Hypertension and hypertensive cardiovascular disease. 4. Hyperlipidemia. 5. Migraine headache, presenting now with what appears to be a tension headache. 6. Parkinson. 7. Enlarged prostate. 8. Recurrent syncope. 9. Osteoarthritis post bilateral total knee arthroplasties. 10. Gastritis. The above impression and plan of care have been discussed and directed by signing physician. Jessie Song nurse practitioner acting as scribe for signing physician. Patient Condition at Discharge: Good Plan - Discharge Summary New Discharge Prescriptions: New Cyclobenzaprine [Flexeril] 10 mg PO HS #30 tab amLODIPine [Norvasc] 5 mg PO DAILY #30 tab levETIRAcetam [Keppra] 750 mg PO Q12HR #60 tab Loratadine [Claritin] 10 mg PO DAILY tab Continue cloNIDine HCL [Catapres] 0.05 mg PO BID Carvedilol [Coreg] 25 mg PO BID-W/MEALS Famotidine [Pepcid] 20 mg PO HS Montelukast [Singulair] 10 mg PO HS Meloxicam [Mobic] 7.5 mg PO BID [place]/APAP/Caf/Cod [id number] [Fioricet w/Cod 86-703-51-30MG] 2 cap PO Q4H PRN MDD 4 capsules PRN Reason: Headache Dorzolamide HCl/Timolol Maleat [Cosopt Eye Drops] 1 drop LEFT EYE BID Latanoprost [Xalatan 0.005%] 1 drop BOTH EYES HS Lactulose 10 gm PO BID PRN PRN Reason: Constipation Cholecalciferol [Vitamin D3] 1,000 unit PO HS Bisacodyl [Dulcolax] 10 mg RECTAL DAILY PRN PRN Reason: Constipation Tamsulosin HCl [Flomax] 0.4 mg PO HS Pramipexole [Mirapex] 1 mg PO DAILY Losartan [Cozaar] 50 mg PO DAILY Clopidogrel [Plavix] 75 mg PO DAILY Ubidecarenone [Co Q-10] 200 mg PO DAILY Aspirin EC [Ecotrin Low Dose] 81 mg PO DAILY [place]-3 Fatty Acids/Fish Oil [Fish Oil 1,000 mg Capsule] 1 cap PO DAILY Diclofenac Sodium [Voltaren Gel] 2 gram TOPICAL QID PRN PRN Reason: Pain Pramipexole [Mirapex] 2 mg PO HS Discontinued Loratadine [Claritin] 10 mg PO DAILY Discharge Medication List Carvedilol [Coreg] 25 mg PO BID-W/MEALS 05/21/14 [History] cloNIDine HCL [Catapres] 0.05 mg PO BID 05/21/14 [History] Famotidine [Pepcid] 20 mg PO HS 07/24/15 [History] Montelukast [Singulair] 10 mg PO HS 09/19/15 [History] [place]a/APAP/Caf/Cod [id number] [Fioricet w/Cod 44-389-56-30MG] 2 cap PO Q4H PRN MDD 4 capsules 08/20/16 [History] Dorzolamide HCl/Timolol Maleat [Cosopt Eye Drops] 1 drop LEFT EYE BID 08/20/16 [ History] Lactulose 10 gm PO BID PRN 08/20/16 [History] Latanoprost [Xalatan 0.005%] 1 drop BOTH EYES HS 08/20/16 [History] Meloxicam [Mobic] 7.5 mg PO BID 08/20/16 [History] Aspirin EC [Ecotrin Low Dose] 81 mg PO DAILY 03/05/17 [History] Bisacodyl [Dulcolax] 10 mg RECTAL DAILY PRN 03/05/17 [History] Cholecalciferol [Vitamin D3] 1,000 unit PO HS 03/05/17 [History] Clopidogrel [Plavix] 75 mg PO DAILY 03/05/17 [History] Diclofenac Sodium [Voltaren Gel] 2 gram TOPICAL QID PRN 03/05/17 [History] Losartan [Cozaar] 50 mg PO DAILY 03/05/17 [History] [place]-3 Fatty Acids/Fish Oil [Fish Oil 1,000 mg Capsule] 1 cap PO DAILY [History] Pramipexole [Mirapex] 1 mg PO DAILY 03/05/17 [History] Tamsulosin HCl [Flomax] 0.4 mg PO HS 03/05/17 [History] Ubidecarenone [Co Q-10] 200 mg PO DAILY 03/05/17 [History] Pramipexole [Mirapex] 2 mg PO HS 03/23/17 [History] Cyclobenzaprine [Flexeril] 10 mg PO HS #30 tab 03/25/17 [Rx] Loratadine [Claritin] 10 mg PO DAILY tab 03/27/17 [Rx] amLODIPine [Norvasc] 5 mg PO DAILY #30 tab 03/27/17 [Rx] levETIRAcetam [Keppra] 750 mg PO Q12HR #60 tab 03/27/17 [Rx] Follow up Appointment(s)/Referral(s): Louis Lawson MD [Primary Care Provider] - 1 Week Olman Byrd DO [STAFF PHYSICIAN] - 1 Week Jose Londono MD [STAFF PHYSICIAN] - 1 Week
[2017-03-27 12:36] VITALS: PULSE 61
[2017-03-27 12:38] VITALS: BP 135/86; TEMP 97.8
== END 2017-03-27 16:12 | disposition home or self-care (01) | DRG 101 ==
LOC: EC 19:56 → 6SEL 22:30
PROVIDERS: ADMIT Family Medicine; ATTEND Family Medicine
DX: R56.9 Unspecified convulsions (principal); I95.9 Hypotension, unspecified; G20 Parkinson's disease; I27.2 Other secondary pulmonary hypertension; I11.9 Hypertensive heart disease without heart failure; R00.1 Bradycardia, unspecified; G62.9 Polyneuropathy, unspecified; K29.70 Gastritis, unspecified, without bleeding; E78.5 Hyperlipidemia, unspecified; I25.10 Atherosclerotic heart disease of native coronary artery without angina pectoris; I34.0 Nonrheumatic mitral (valve) insufficiency; M54.81 Occipital neuralgia; G43.909 Migraine, unspecified, not intractable, without status migrainosus; I67.9 Cerebrovascular disease, unspecified; R55 Syncope and collapse; G44.201 Tension-type headache, unspecified, intractable; M17.0 Bilateral primary osteoarthritis of knee; I65.22 Occlusion and stenosis of left carotid artery; R32 Unspecified urinary incontinence; H91.90 Unspecified hearing loss, unspecified ear; R29.700 NIHSS score 0; E66.9 Obesity, unspecified; R47.81 Slurred speech; I69.392 Facial weakness following cerebral infarction; R53.1 Weakness; G47.9 Sleep disorder, unspecified; G89.29 Other chronic pain; G25.81 Restless legs syndrome; N40.0 Benign prostatic hyperplasia without lower urinary tract symptoms; D64.9 Anemia, unspecified; M47.814 Spondylosis without myelopathy or radiculopathy, thoracic region; K21.9 Gastro-esophageal reflux disease without esophagitis; Z85.46 Personal history of malignant neoplasm of prostate; Z82.3 Family history of stroke; Z82.49 Family history of ischemic heart disease and other diseases of the circulatory system; Z79.899 Other long term (current) drug therapy; Z79.02 Long term (current) use of antithrombotics/antiplatelets; Z83.3 Family history of diabetes mellitus; Z96.653 Presence of artificial knee joint, bilateral; Z82.0 Family history of epilepsy and other diseases of the nervous system; Z80.8 Family history of malignant neoplasm of other organs or systems; Z87.442 Personal history of urinary calculi; Z88.5 Allergy status to narcotic agent; Z88.8 Allergy status to other drugs, medicaments and biological substances; Z86.2 Personal history of diseases of the blood and blood-forming organs and certain disorders involving the immune mechanism; Z87.440 Personal history of urinary (tract) infections; Z92.21 Personal history of antineoplastic chemotherapy; Z92.3 Personal history of irradiation; Z95.5 Presence of coronary angioplasty implant and graft; Z80.0 Family history of malignant neoplasm of digestive organs; Z81.8 Family history of other mental and behavioral disorders; Z79.82 Long term (current) use of aspirin; Z79.1 Long term (current) use of non-steroidal anti-inflammatories (NSAID); Z79.891 Long term (current) use of opiate analgesic; Z96.89 Presence of other specified functional implants; Z91.19 Patient's noncompliance with other medical treatment and regimen
CPT/HCPCS: 36415; 70450; 70496; 70498; 70551; 71020; 80048; 80051; 80053; 80061; 80177; 80306; 81003; 82550; 82553; 82565; 83735; 84484; 84520; 85025; 85027; 85610; 85730; 93005; 93306; 93880; 95819; 96374; 96375; 99291

== ENCOUNTER → 2017-05-27 | Outpatient (CLI) | payer MEDICARE ==
--- NOTE | 2017-05-27 23:17 | CONS ---
CONSULTATION DATE OF SERVICE: 05/27/2017. DATE OF CONSULT: 05/27/17 81-year-old gentleman who has been evaluated in the Sleep Center for obstructive sleep apnea-hypopnea syndrome. HISTORY OF PRESENT ILLNESS/SLEEP WAKE EVALUATION: Patient had been diagnosed with obstructive sleep apnea in different institution about 10 years ago. At that time was recommended treatment with CPAP, but for different technical reasons was not able to use the equipment. At the present time he snores and wakes up with dry mouth, restless legs and sleep talking. SLEEP SCHEDULE: Patient usual sleep schedule from 10 to 10:30 p.m. until 5:30 or 6 am. FALLING ASLEEP: No problems with falling asleep. No TV in bedroom. DURING SLEEP: He wakes up from sleep around 5 times with 4 episodes of nocturia. DURING THE DAY/WAKE STATE: In the morning, he wakes up tired. During the day has problem with memory, sexual dysfunction. [place] Sleepiness Scale significantly increased to 21. No history of hypnagogic hallucinations, sleep paralysis or cataplexy. PAST MEDICAL HISTORY: Positive for hypertension, coronary artery disease, allergy, restless legs, migraines, Parkinson disease, back problems. PAST SURGICAL HISTORY: Stent insertion to coronary artery in 2009, status post bilateral knee replacement. Knee repair and back surgery. SOCIAL HISTORY: Negative for smoking or using alcohol. REVIEW OF SYSTEMS: Multiple awakenings from sleep. Significant excessive daytime sleepiness. Swelling of the legs. Weakness during walk. No fevers. No double vision. No recent chest pain. No shortness of breath. No abdominal pain. No bleeding episodes. No blood in urine. No seizure episodes. FAMILY HISTORY: Hypertension, heart problems hyperlipidemia, stroke, arthritis, asthma, sinus headaches, cancer, pneumoniae, sleep apnea, and diabetes, restless legs. PHYSICAL EXAM: 81-year-old pleasant gentleman without distress. BP 142/76, HR 73, RR 20, height 5 feet and 5 inches, weight 202, BMI 32.9. Neck 16 and a half inches in circumference. Temperature 98.1. Oxygen saturation room air 95%. Oropharynx low position of soft palate. NECK: Supple. No JVD. Thyroid is not palpable. LUNGS: Clear to auscultation and percussion. Good air exchange. No wheezing or rhonchi. HEART: S1, S2 regular. No murmurs, gallops or rubs. ABDOMEN: Obese. Soft, nontender. Bowel sounds are preset. No organomegaly appreciated. EXTREMITIES: up to 2+ bilateral ankle edema. Some weakness in the arms and legs and difficulties to walk. The patient is using a walker. Practically no tremor in the hands. 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 Cranial nerves 2 to 7 intact. There is no fasciculation or atrophy noted. No focal deficits observed. IMPRESSION: 1. Snoring, multiple awakenings from sleep with nocturia and dry mouth. Low position of soft palate. History of obstructive sleep apnea-hypopnea syndrome in the past, sleepiness with extremely high [place] Sleepiness Scale 21, obstructive sleep apnea- hypopnea syndrome. 2. Parkinson disease. 3. Extreme excessive daytime sleepiness. [place] Sleepiness Scale of 21. Differential diagnosis includes hypersomnia including narcolepsy, although no history of cataplexy or sleep paralysis or hypnagogic hallucinations. 4. Hypertension. 5. Coronary artery disease status post stent insertion in 2009. 6. Allergy. 7. History of restless legs syndrome. 8. History of migraines. 9. Status post back surgery. 10.Status post bilateral knee replacement. PLAN: 1. Polysomnography for evaluation of patient's breathing during sleep. 2. CPAP/BIPAP titration if sleep study confirms obstructive sleep apnea/hypopnea syndrome. 3. Preferable position during sleep in the side. 4. No driving if patient feels any sleepiness. Patient is aware of civil and criminal liability for unsafe driving. 5. I will see the patient for follow-up visit to explain the results of the testing and following plan. Thank you for referring this patient for consultation. Sincerely, Doug Diggs MD, PhD, FAASM Diplomat of [place] [employer]. Sleep Medicine Board by [place] [employer] [place] [employer] Flight Surgeon of [facility] [place] MMODL / IJN: [id number] /
== END ==
LOC: SLEEP 15:09
PROVIDERS: ATTEND Internal Medicine
DX: G47.33 Obstructive sleep apnea (adult) (pediatric) (principal); G47.10 Hypersomnia, unspecified; G20 Parkinson's disease; I10 Essential (primary) hypertension; I25.10 Atherosclerotic heart disease of native coronary artery without angina pectoris; G25.81 Restless legs syndrome; G43.909 Migraine, unspecified, not intractable, without status migrainosus; Z96.653 Presence of artificial knee joint, bilateral; Z98.890 Other specified postprocedural states
CPT/HCPCS: 99211

== ENCOUNTER → 2017-08-05 | Outpatient (CLI) | payer MEDICARE ==
--- NOTE | 2017-08-05 17:34 | PN ---
PROGRESS NOTE DATE OF SERVICE: 08/05/2017 81-year-old gentleman has been followed in Sleep Center for treatment of obstructive sleep apnea-hypopnea syndrome. Recently patient underwent polysomnogram and CPAP titration and I discussed results of sleep studies with the patient and his family in detail. Sleep study showed moderate obstructive sleep apnea, which has been controlled with CPAP at 9 cm of water results of titration. The patient was started on treatment with CPAP and today he came for his followup appointment with his CPAP unit. I checked his CPAP unit. Usage is 28/30 nights for more than 4 hours. Average usage is 4.8 hours. CPAP pressure is 9 cm of water. REM started from 5 cm of water for 45 minutes. Leak is 11 m/minute which is acceptable range. Apnea-hypopnea index in the range of 1 to 1.5. The patient feels better with the machine, sleeping better. Sometimes patient may have mild snoring according to his , he still sometimes feels some tiredness and sleepiness. [place] Sleepiness Scale is 16. MEDICATIONS: Claritin, Clopidogrel, losartan, amlodipine, carvedilol, Pramipexole, famotidine, tamsulosin, montelukast, meloxicam, latanoprost, and levetiracetam. PHYSICAL EXAM: Patient in no distress BP 151/93, HR 60, RR 16, weight 208, temp 97.0, oxygen saturation room air 97% on room. Moderately low position of soft palate. Neck Supple, no JVD. Thyroid is not palpable. LUNGS Clear to percussion and to auscultation. Good air exchange. No wheezing or rhonchi. HEART S1, S2 regular. No murmurs, gallops, or rubs. ABDOMEN Soft and nontender. Bowel sounds are present. No organomegaly appreciated. EXTREMITIES No clubbing or cyanosis. 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 Cranial nerves 2 to 7 intact. There is no fasciculation or atrophy. noted. No focal deficits observed. IMPRESSION: 1. Moderate Apnea-hypopnea syndrome; apnea-hypopnea index 26.8. Respiration control with CPAP pressure at 9 cm of water. The patient demonstrated a great compliance with treatment benefitting from treatment. 2. According to , sometimes he has some mild snoring with the usage of the CPAP. 3. History of Parkinson disease. 4. Hypertension. 5. Coronary artery disease, status post stent insertion. 6. Allergy. 7. History of restless legs. 8. History of migraines. 9. Status post back surgery. 10.Status post bilateral knee replacement. PLAN: 1. I will increase pressure to 10 cm of water to be sure that there is not any snoring. 2. Continue to use CPAP equipment every night for the whole night. 3. Watching and losing weight. 4. Sleep hygiene with regular time in bed for at least 8 hours. 5. No driving if feeling sleepiness. Thank you very much for allowing me to participate in management of your patient. Sincerely, Doug Diggs MD, PhD, FAASM Diplomat of [place] [employer] Carpentry Teacher of [facility] [place] MMODL / [place]APOLEON[place]: [id number] /
== END | disposition home or self-care (01) ==
LOC: SLEEP 16:08
PROVIDERS: ATTEND Internal Medicine
DX: G47.33 Obstructive sleep apnea (adult) (pediatric) (principal); I10 Essential (primary) hypertension; I25.10 Atherosclerotic heart disease of native coronary artery without angina pectoris; Z96.653 Presence of artificial knee joint, bilateral

== ENCOUNTER 2018-02-05 14:09 | Emergency (ER) | payer MEDICARE ==
[2018-02-05] MEDS ORDERED: SODIUM CHLORIDE 0.9% 1,000 ML IV STA (15:31)
[2018-02-05] MEDS ORDERED: diphenhydrAMINE 50 MG/ML 1 ML VIAL IVP STA (15:31)
[2018-02-05] MEDS ORDERED: ONDANSETRON 4 MG/2 ML VIAL IVP STA (15:31)
[2018-02-05] MEDS ORDERED: MORPHINE SULFATE 4 MG/ML SYRINGE IVP STA ×2 (15:32→16:57)
[2018-02-05 15:50] LABS: Basophils % (A) 0 %; Eosinophils # (A) 0.2 k/uL (0-0.7); Eosinophils % (A) 4 %; HCT 39.3 % (39.0-53.0); HGB 13.3 gm/dL (13.0-17.5); Lymphocytes # (A) 0.3 k/uL (1.0-4.8); Lymphocytes % (A) 5 %; MCH 30.3 pg (25.0-35.0); MCHC 33.9 g/dL (31.0-37.0); MCV 89.3 fL (80.0-100.0); Mean Platelet Volume 6.6; Monocytes # (A) 0.2 k/uL (0-1.0); Monocytes % (A) 3 %; Neutrophils # (A) 4.7 k/uL (1.3-7.7); Neutrophils % (A) 88 %; Platelet Count 196 k/uL (150-450); RBC 4.39 m/uL (4.30-5.90); RDW 13.1 % (11.5-15.5); WBC 5.3 k/uL (3.8-10.6)
[2018-02-05 15:54] LABS: INR 1.1 (<1.2); Partial Thromboplastin Time 22.7 sec (22.0-30.0); Prothrombin Time 10.4 sec (9.0-12.0)
[2018-02-05 16:11] LABS: ALT 32 U/L (21-72); AST 26 U/L (17-59); Albumin 3.6 g/dL (3.5-5.0); Alkaline Phosphatase 79 U/L (38-126); Anion Gap 10 mmol/L; Blood Urea Nitrogen 25 mg/dL (9-20); Calcium 8.4 mg/dL (8.4-10.2); Carbon Dioxide 24 mmol/L (22-30); Chloride 104 mmol/L (98-107); Glucose 94 mg/dL (74-99); Potassium 3.7 mmol/L (3.5-5.1); Sodium 138 mmol/L (137-145); Total Bilirubin 0.8 mg/dL (0.2-1.3); Total Protein 5.8 g/dL (6.3-8.2)
--- NOTE | 2018-02-05 16:16 | ED ---
Headache HPI - General Chief Complaint: Headache Stated Complaint: Headache Time Seen by Provider: 02/05/18 15:05 Source: RN notes reviewed, old records reviewed Mode of arrival: wheelchair Limitations: no limitations - History of Present Illness Initial Comments: 82-year-old male presents emergency department today chief complaint of headache. Started at 4 AM. Patient reports that at home medicines are not helping. He states that normally he has to have morphine in the emergency department for his migraines. He states he feels nauseated. This migraine feels typical to majority of his migraines. No significant changes. He recently returned home from [place]. Patient denies any recent fever, chills, shortness of breath, chest pain, back pain, abdominal pain, nausea vomiting, numbness or tingling, dysuria or hematuria, constipation or diarrhea, or visual changes, or any other current symptoms - Related Data Home Medications Medication Instructions Recorded Confirmed Carvedilol [Coreg] 25 mg PO BID-W/MEALS 05/21/14 03/23/17 cloNIDine HCL [Catapres] 0.05 mg PO BID 05/21/14 03/23/17 Famotidine [Pepcid] 20 mg PO HS 07/24/15 03/23/17 Montelukast [Singulair] 10 mg PO HS 09/19/15 03/23/17 Buta/APAP/Caf/Cod 69-246-87-30 2 cap PO Q4H PRN MDD 4 capsules 08/20/16 03/23/17 [Fioricet w/Cod 84-524-91-30MG] Dorzolamide HCl/Timolol Maleat 1 drop LEFT EYE BID 08/20/16 03/23/17 [Cosopt Eye Drops] Lactulose 10 gm PO BID PRN 08/20/16 03/23/17 Latanoprost [Xalatan 0.005%] 1 drop BOTH EYES HS 08/20/16 03/23/17 Meloxicam [Mobic] 7.5 mg PO BID 08/20/16 03/23/17 Aspirin EC [Ecotrin Low Dose] 81 mg PO DAILY 03/05/17 03/23/17 Bisacodyl [Dulcolax] 10 mg RECTAL DAILY PRN 03/05/17 03/23/17 Cholecalciferol [Vitamin D3] 1,000 unit PO HS 03/05/17 03/23/17 Clopidogrel [Plavix] 75 mg PO DAILY 03/05/17 03/23/17 Diclofenac Sodium [Voltaren Gel] 2 gram TOPICAL QID PRN 03/05/17 03/23/17 Losartan [Cozaar] 50 mg PO DAILY 03/05/17 03/23/17 [place]-3 Fatty Acids/Fish Oil [Fish 1 cap PO DAILY 03/05/17 03/23/17 Oil 1,000 mg Capsule] Pramipexole [Mirapex] 1 mg PO DAILY 03/05/17 03/23/17 Tamsulosin HCl [Flomax] 0.4 mg PO HS 03/05/17 03/23/17 Ubidecarenone [Co Q-10] 200 mg PO DAILY 03/05/17 03/23/17 Pramipexole [Mirapex] 2 mg PO HS 03/23/17 03/23/17 Previous Rx's Medication Instructions Recorded Cyclobenzaprine [Flexeril] 10 mg PO HS #30 tab 03/25/17 Loratadine [Claritin] 10 mg PO DAILY tab 03/27/17 amLODIPine [Norvasc] 5 mg PO DAILY #30 tab 03/27/17 levETIRAcetam [Keppra] 750 mg PO Q12HR #60 tab 03/27/17 Allergies Allergy/AdvReac Type Severity Reaction Status Date / Time metoclopramide [From Reglan] AdvReac SHAKES Verified 02/05/18 14:14 oxycodone HCl AdvReac Nausea & Verified 02/05/18 14:14 [From OxyContin] Vomiting Review of Systems ROS Statement: Those systems with pertinent positive or pertinent negative responses have been documented in the HPI. ROS Other: All systems not noted in ROS Statement are negative. Past Medical History Past Medical History: Blood Disorder, Coronary Artery Disease (CAD), Cancer, Chest Pain / Angina, CVA/TIA, GERD/Reflux, Hyperlipidemia, Hypertension, Neurologic Disorder, Osteoarthritis (OA), Syncope, Vascular Disorder Additional Past Medical History / Comment(s): migraines anemia BPH hypertension GERD coronary artery disease carotid stenosis migraines occipital uti,neuralgia RESTLESS leg syndrome, neuropathy.parkinsons,prostate cancer -2012 -had chemo- radiation,stroke 2004 and tia's x5,stress test 1-11-16,kidney stones, had pne vaccine after age 66 not sure of date. History of Any Multi-Drug Resistant Organisms: None Reported Past Surgical History: Back Surgery, Heart Catheterization With Stent, Hernia Repair, Orthopedic Surgery Additional Past Surgical History / Comment(s): right knee replacement 06/19/15, both knees have been replaced, bilateral Surgery, EGD and colonoscopy 2010 and 2015, left heart catheterization with the PCI of the LAD 2012,colonoscopy/egd, supraorbtal nerve percutaneous nerve stimulator trial 09-21-12,severasl prostate bx,laser vaporization for prostate cancer, epidural steroid inj 2012 Past Anesthesia/Blood Transfusion Reactions: No Reported Reaction Date of Last Stent Placement:: 2010 Past Psychological History: No Psychological Hx Reported Smoking Status: Never smoker Past Alcohol Use History: None Reported Past Drug Use History: None Reported - Past Family History Brother(s) Additional Family Medical History / Comment(s): Patient has 3 brothers with no major medical problems. Sister(s) Additional Family Medical History / Comment(s): Patient has 3 sisters that are all alive. 2 have high blood pressure. One has diabetes and stroke and is 81 years old. And all have history of tremors. Son(s) Additional Family Medical History / Comment(s): Patient has 3 sons and one daughter with no major medical problems. Father Family Medical History: Myocardial Infarction ([place]) Additional Family Medical History / Comment(s): Father at age 73 with history of Parkinson's disease, bowel cancer, bone cancer. Mother Family Medical History: Myocardial Infarction ([place]) Additional Family Medical History / Comment(s): Mother at age 85 with history of hypertension and dementia. General Exam - General Exam Comments Initial Comments: 82-year-old male. Alert and oriented. No acute distress. Limitations: no limitations General appearance: alert, in no apparent distress Head exam: Present: atraumatic, normocephalic, normal inspection Eye exam: Present: normal appearance, PERRL, EOMI. Absent: scleral icterus, conjunctival injection, periorbital swelling ENT exam: Present: normal exam, mucous membranes moist Neck exam: Present: normal inspection. Absent: tenderness, meningismus, lymphadenopathy Respiratory exam: Present: normal lung sounds bilaterally. Absent: respiratory distress, wheezes, rales, rhonchi, stridor Cardiovascular Exam: Present: regular rate, normal rhythm, normal heart sounds. Absent: systolic murmur, diastolic murmur, rubs, gallop, clicks GI/Abdominal exam: Present: soft, normal bowel sounds. Absent: distended, tenderness, guarding, rebound, rigid Extremities exam: Present: normal inspection, full ROM, normal capillary refill. Absent: tenderness, pedal edema, joint swelling, calf tenderness Back exam: Present: normal inspection Neurological exam: Present: alert, oriented X3, CN II-XII intact Expanded Patient oriented to: Present: person, place, time Speech: Present: fluid speech Cranial nerves: EOM's Intact: Normal, Facial Sensation: Normal Cerebellar function: Finger to Nose: Normal Upper motor neuron: Pronator Drift: Normal Sensory exam: Upper Extremity Light Touch: Normal, Lower Extremity Light Touch: Normal Motor strength exam: RUE: 5, LUE: 5, RLE: 5, LLE: 5 Eye Response: (4) open spontaneously Motor Response: (6) obeys commands Verbal Response: (5) oriented Anastasiia Total: 15 Psychiatric exam: Present: normal affect, normal mood Skin exam: Present: warm, dry, intact, normal color. Absent: rash Course Vital Signs 02/05/18 02/05/18 02/05/18 14:12 16:13 17:36 Temperature 98.0 F 97.5 F L Pulse Rate 80 62 68 Respiratory 20 16 18 Rate Blood Pressure 153/79 126/66 O2 Sat by Pulse 99 97 98 Oximetry - Reevaluation(s) Reevaluation #1: 02/05/18 17:01 is reevaluated and resting on complaint bed. Upon results. Discussed that he can follow-up with primary care provider. He states he was has a headache and his pain is diminished out this time. Requests a dose of pain medication. Will be discharge and follow-up. Medical Decision Making - Medical Decision Making 82-year-old male presents history of migraine for him. He states he's had chronic headaches or migraines for quite some time. He is on Plavix. Patient has no neurological deficits at this time. CT brain CT scan was performed. Chronic vesicle ischemia. No acute changes. His lab work was reviewed and unremarkable. Patient does feel better after receiving pain medication. All questions answered return parameters discussed. He'll follow-up with PCP and neurologist. Discussed basilar deficits or any other concerns they should return. - Lab Data Result diagrams: 02/05/18 15:25 02/05/18 15:25 Lab Results 02/05/18 02/05/18 02/05/18 Range/Units 15:25 15:25 15:25 WBC 5.3 (3.8-10.6) k/uL RBC 4.39 (4.30-5.90) m/uL Hgb 13.3 (13.0-17.5) gm/dL Hct 39.3 (39.0-53.0) % MCV 89.3 (80.0-100.0) fL MCH 30.3 (25.0-35.0) pg MCHC 33.9 (31.0-37.0) g/dL RDW 13.1 (11.5-15.5) % Plt Count 196 (150-450) k/uL Neutrophils % 88 % Lymphocytes % 5 % Monocytes % 3 % Eosinophils % 4 % Basophils % 0 % Neutrophils # 4.7 (1.3-7.7) k/uL Lymphocytes # 0.3 L (1.0-4.8) k/uL Monocytes # 0.2 (0-1.0) k/uL Eosinophils # 0.2 (0-0.7) k/uL Basophils # 0.0 (0-0.2) k/uL PT 10.4 (9.0-12.0) sec INR 1.1 (<1.2) APTT 22.7 (22.0-30.0) sec Sodium 138 (137-145) mmol/L Potassium 3.7 (3.5-5.1) mmol/L Chloride 104 (98-107) mmol/L Carbon Dioxide 24 (22-30) mmol/L Anion Gap 10 mmol/L BUN 25 H (9-20) mg/dL Creatinine 0.70 (0.66-1.25) mg/dL Est GFR (CKD-EPI)AfAm >90 (>60 ml/min/1.73 sqM) Est GFR (CKD-EPI)NonAf 89 (>60 ml/min/1.73 sqM) Glucose 94 (74-99) mg/dL Calcium 8.4 (8.4-10.2) mg/dL Total Bilirubin 0.8 (0.2-1.3) mg/dL AST 26 (17-59) U/L ALT 32 (21-72) U/L Alkaline Phosphatase 79 (38-126) U/L Total Protein 5.8 L (6.3-8.2) g/dL Albumin 3.6 (3.5-5.0) g/dL - Radiology Data Radiology results: report reviewed Brief CT shows stable exam. No acute abdomen around. Correlate for chronic small vessel ischemia. Age-related atrophy. Disposition Clinical Impression: Migraine Disposition: HOME SELF-CARE Condition: Good Instructions: Acute Headache (ED) Additional Instructions: Patient has follow-up with primary care provider. There is any neurological signs or concerning signs or symptoms return to emergency department at once. Is patient prescribed a controlled substance at d/c from ED?: No If prescribed controlled substance>3 days was MAPS reviewed?: No When asked, does pt state using other controlled substances?: No Referrals: Louis Lawson MD [Primary Care Provider] - 1-2 days Time of Disposition: 17:02
--- NOTE | 2018-02-05 16:34 | CT ---
EXAMINATION TYPE: CT brain wo con DATE OF EXAM: 02/05/2018 COMPARISON: Prior CT brain 03/25/2017 HISTORY: Frontal headache with nausea CT DLP: 1047.1 mGycm Automated exposure control for dose reduction was used. Helical acquisition through the brain. FINDINGS: There is no interval change. White matter demyelination is again noted. There is no hemorrhage or hyd rocephalus. Calvarium is intact. There are cerebral vascular calcifications. IMPRESSION: STABLE EXAM, NO ACUTE ABNORMALITY. CORRELATE FOR CHRONIC SMALL VESSEL ISCHEMIA, AGE RELATED ATROPHY.
[2018-02-05 18:23] VITALS: BP 126/66; PULSE 68; RESP 18; TEMP 97.5
== END 2018-02-05 17:36 | disposition home or self-care (01) ==
LOC: EC 14:09
DX: G43.909 Migraine, unspecified, not intractable, without status migrainosus (principal); G31.9 Degenerative disease of nervous system, unspecified; I67.82 Cerebral ischemia; I10 Essential (primary) hypertension; K21.9 Gastro-esophageal reflux disease without esophagitis; G25.81 Restless legs syndrome; G20 Parkinson's disease; N40.0 Benign prostatic hyperplasia without lower urinary tract symptoms; M19.90 Unspecified osteoarthritis, unspecified site; Z79.02 Long term (current) use of antithrombotics/antiplatelets; Z79.1 Long term (current) use of non-steroidal anti-inflammatories (NSAID); Z79.82 Long term (current) use of aspirin; Z79.899 Other long term (current) drug therapy; Z88.5 Allergy status to narcotic agent; Z88.8 Allergy status to other drugs, medicaments and biological substances; Z85.46 Personal history of malignant neoplasm of prostate; Z92.21 Personal history of antineoplastic chemotherapy; Z92.3 Personal history of irradiation; Z86.73 Personal history of transient ischemic attack (TIA), and cerebral infarction without residual deficits; Z98.890 Other specified postprocedural states
CPT/HCPCS: 99284; 96374; 96375 ×2; 96376; 96361; 36415; 80053; 85025; 85610; 85730; 70450; J2270; J1200; J2405

== ENCOUNTER 2018-02-07 16:40 | Emergency (ER) | payer MEDICARE ==
[2018-02-07] MEDS ORDERED: RX INFO: IV CONTRAST WAS GIVEN 1 EACH MISC MISCELLANE PRN (17:16)
[2018-02-07] MEDS ORDERED: SODIUM CHLORIDE 0.9% 1,000 ML IV STA (17:16)
[2018-02-07] MEDS ORDERED: SODIUM CHLORIDE 0.9% 500 ML IV STA (17:17)
[2018-02-07 17:41] LABS: HCT 35.4 % (39.0-53.0); HGB 11.7 gm/dL (13.0-17.5); MCH 29.5 pg (25.0-35.0); MCV 89.4 fL (80.0-100.0); Mean Platelet Volume 7.1; Platelet Count 179 k/uL (150-450); RBC 3.96 m/uL (4.30-5.90); RDW 13.1 % (11.5-15.5); WBC 3.2 k/uL (3.8-10.6)
[2018-02-07 17:47] LABS: INR 1.1 (<1.2); Prothrombin Time 10.6 sec (9.0-12.0)
[2018-02-07 17:50] LABS: ALT 33 U/L (21-72); AST 34 U/L (17-59); Albumin 3.7 g/dL (3.5-5.0); Alkaline Phosphatase 77 U/L (38-126); Anion Gap 11 mmol/L; Blood Urea Nitrogen 29 mg/dL (9-20); Calcium 9.2 mg/dL (8.4-10.2); Carbon Dioxide 23 mmol/L (22-30); Chloride 101 mmol/L (98-107); Glucose 101 mg/dL (74-99); Potassium 4.5 mmol/L (3.5-5.1); Sodium 135 mmol/L (137-145); Total Bilirubin 0.5 mg/dL (0.2-1.3); Total Protein 6.2 g/dL (6.3-8.2)
[2018-02-07 17:53] LABS: Creatine Kinase 134 U/L (55-170)
[2018-02-07 18:05] LABS: Troponin I <0.012 ng/mL (0.000-0.034)
[2018-02-07 18:07] LABS: Band Neutrophils % 1 %; Eosinophils # (M) 0.19 k/uL (0-0.7); Lymphocytes # (M) 1.12 k/uL (1.0-4.8); Monocytes # (M) 0.45 k/uL (0-1.0); Neutrophils % (M) 44 %; Nucleated Red Blood Cells 0 /100 WBC (0-0); Poikilocytosis (M) Present; Total Cells Counted 100; Toxic Granulation Present
--- NOTE | 2018-02-07 18:22 | ED ---
Neuro HPI - General Chief Complaint: Neuro Symptoms/Deficit Stated Complaint: Lightheaded, Slurred speech Time Seen by Provider: 02/07/18 17:07 Source: patient Mode of arrival: wheelchair Limitations: no limitations - History of Present Illness Is the patient presenting with stroke symptoms?: Yes Last Known Well Date: 02/06/18 Last Known Well Time: 23:00 Initial Comments: This 82-year-old white male presents with a complaint of speech problems. relates that approximately 4 AM his morning he started having some slurred speech. Upon further questioning, it sounds as though he was having some expressive aphasia as well. This has significantly improved throughout the day. They did follow up with her primary care physician today and was sent to the ER for further evaluation of possible TIA versus CVA. The patient further relates that he is here 2 days ago and seen for headache. He did have a computed tomography scan of the brain at that time which did not show any acute process. He does relate chronic headaches. He has a headache every day which is normally severity of 5 out of 10. He states that his current headache is at approximately 5 out of 10. He denies any fevers or chills. He denies any extremity weakness. He does complain of some slight blurry vision in his right eye. He denies any neck pain. No other complaints or modifying factors. - Related Data Home Medications: Home Medications Medication Instructions Recorded Confirmed Carvedilol [Coreg] 25 mg PO BID-W/MEALS 05/21/14 02/07/18 cloNIDine HCL [Catapres] 0.05 mg PO BID 05/21/14 02/07/18 Famotidine [Pepcid] 20 mg PO HS 07/24/15 02/07/18 Montelukast [Singulair] 10 mg PO HS 09/19/15 02/07/18 Buta/APAP/Caf/Cod 06-249-80-30 2 cap PO Q4H PRN MDD 4 capsules 08/20/16 02/07/18 [Fioricet w/Cod 62-017-40-30MG] Lactulose 10 gm PO BID PRN 08/20/16 02/07/18 Latanoprost [Xalatan 0.005%] 1 drop BOTH EYES HS 08/20/16 02/07/18 Meloxicam [Mobic] 7.5 mg PO DAILY 08/20/16 02/07/18 Aspirin EC [Ecotrin Low Dose] 81 mg PO DAILY 03/05/17 02/07/18 Bisacodyl [Dulcolax] 10 mg RECTAL DAILY PRN 03/05/17 02/07/18 Cholecalciferol [Vitamin D3] 1,000 unit PO HS 03/05/17 02/07/18 Clopidogrel [Plavix] 75 mg PO DAILY 03/05/17 02/07/18 Diclofenac Sodium [Voltaren Gel] 2 gram TOPICAL QID PRN 03/05/17 02/07/18 Losartan [Cozaar] 50 mg PO DAILY 03/05/17 02/07/18 [place]-3 Fatty Acids/Fish Oil [Fish 1 cap PO DAILY 03/05/17 02/07/18 Oil 1,000 mg Capsule] Ubidecarenone [Co Q-10] 200 mg PO DAILY 03/05/17 02/07/18 Pramipexole [Mirapex] 1 mg PO TID 03/23/17 02/07/18 Hydrochlorothiazide 25 mg PO DAILY 02/07/18 02/07/18 Rosuvastatin [Crestor] 20 mg PO DAILY 02/07/18 02/07/18 levETIRAcetam [Keppra] 250 mg PO DAILY 02/07/18 02/07/18 levETIRAcetam [Keppra] 500 mg PO HS 02/07/18 02/07/18 Previous Rx's Medication Instructions Recorded Loratadine [Claritin] 10 mg PO DAILY tab 03/27/17 amLODIPine [Norvasc] 5 mg PO DAILY #30 tab 03/27/17 Allergies/Adverse Reactions: Allergies Allergy/AdvReac Type Severity Reaction Status Date / Time metoclopramide [From Reglan] AdvReac SHAKES Verified 02/07/18 18:17 oxycodone HCl AdvReac Nausea & Verified 02/07/18 18:17 [From OxyContin] Vomiting Review of Systems ROS Statement: Those systems with pertinent positive or pertinent negative responses have been documented in the HPI. ROS Other: All systems not noted in ROS Statement are negative. General Exam - General Exam Comments Initial Comments: GENERAL: The patient is well nourished and well hydrated. VITAL SIGNS: Heart rate, blood pressure, respiratory rate reviewed as recorded in nurse's notes. EYES: Pupils are round and reactive. Extraocular movements are intact. No conjunctival / lid redness or swelling. ENT: No external evidence of injury, swelling, or ecchymosis. Airway is patent. Throat is clear. NECK: Nontender. No swelling or evidence of injury. No subcutaneous emphysema. Trachea is midline. No thyroid mass. HEART: Regular rate and rhythm. Good peripheral pulses. LUNGS/CHEST: Breath sounds clear and equal bilaterally. No rales, rhonchi, or wheezes. No ecchymosis, subcutaneous emphysema, or tenderness. ABDOMEN: Abdomen soft without tenderness. No palpable masses or organomegaly. No peritoneal signs. No abdominal wall swelling or ecchymosis. EXTREMITIES: No extremity tenderness. Normal muscle tone and function. No thoracolumbar tenderness. NEUROLOGIC: Sensation is grossly intact. Cranial nerve exam reveals face is symmetrical, tongue is midline, speech is clear. There may be a very slight droop of the right upper eyelid. SKIN: No abrasions or ecchymosis is noted. No induration or masses noted. PSYCHIATRIC: Alert and oriented. Appropriate behavior and judgment. Limitations: no limitations Stroke [facility] [place] - Lab Data Result diagrams: 02/07/18 17:22 02/07/18 17:22 Lab Results 02/07/18 02/07/18 02/07/18 Range/Units 17:22 17:22 17:22 WBC 3.2 L (3.8-10.6) k/uL RBC 3.96 L (4.30-5.90) m/uL Hgb 11.7 L (13.0-17.5) gm/dL Hct 35.4 L (39.0-53.0) % MCV 89.4 (80.0-100.0) fL MCH 29.5 (25.0-35.0) pg MCHC 33.0 (31.0-37.0) g/dL RDW 13.1 (11.5-15.5) % Plt Count 179 (150-450) k/uL Neutrophils % (Manual) 44 % Band Neutrophils % 1 % Lymphocytes % (Manual) 35 % Monocytes % (Manual) 14 % Eosinophils % (Manual) 6 % Neutrophils # (Manual) 1.40 (1.3-7.7) k/uL Lymphocytes # (Manual) 1.12 (1.0-4.8) k/uL Monocytes # (Manual) 0.45 (0-1.0) k/uL Eosinophils # (Manual) 0.19 (0-0.7) k/uL Nucleated RBCs 0 (0-0) /100 WBC Manual Slide Review Performed Toxic Granulation Present Poikilocytosis (manual Present PT (9.0-12.0) sec INR (<1.2) APTT (22.0-30.0) sec Sodium 135 L (137-145) mmol/L Potassium 4.5 (3.5-5.1) mmol/L Chloride 101 (98-107) mmol/L Carbon Dioxide 23 (22-30) mmol/L Anion Gap 11 mmol/L BUN 29 H (9-20) mg/dL Creatinine 0.90 (0.66-1.25) mg/dL Est GFR (CKD-EPI)AfAm >90 (>60 ml/min/1.73 sqM) Est GFR (CKD-EPI)NonAf 80 (>60 ml/min/1.73 sqM) Glucose 101 H (74-99) mg/dL Calcium 9.2 (8.4-10.2) mg/dL Total Bilirubin 0.5 (0.2-1.3) mg/dL AST 34 (17-59) U/L ALT 33 (21-72) U/L Alkaline Phosphatase 77 (38-126) U/L Total Creatine Kinase 134 (55-170) U/L CK-MB (CK-2) 2.0 (0.0-2.4) ng/mL CK-MB (CK-2) Rel Index 1.5 Troponin I <0.012 (0.000-0.034) ng/mL Total Protein 6.2 L (6.3-8.2) g/dL Albumin 3.7 (3.5-5.0) g/dL Urine Color Urine Appearance (Clear) Urine pH (5.0-8.0) Ur Specific [place] (1.001-1.035) Urine Protein (Negative) Urine Glucose (UA) (Negative) Urine Ketones (Negative) Urine Blood (Negative) Urine Nitrite (Negative) Urine Bilirubin (Negative) Urine Urobilinogen (<2.0) mg/dL Ur Leukocyte Esterase (Negative) Urine RBC (0-5) /hpf Urine WBC (0-5) /hpf Urine WBC Clumps (None) /hpf 02/07/18 02/07/18 Range/Units 17:22 19:32 WBC (3.8-10.6) k/uL RBC (4.30-5.90) m/uL Hgb (13.0-17.5) gm/dL Hct (39.0-53.0) % MCV (80.0-100.0) fL MCH (25.0-35.0) pg MCHC (31.0-37.0) g/dL RDW (11.5-15.5) % Plt Count (150-450) k/uL Neutrophils % (Manual) % Band Neutrophils % % Lymphocytes % (Manual) % Monocytes % (Manual) % Eosinophils % (Manual) % Neutrophils # (Manual) (1.3-7.7) k/uL Lymphocytes # (Manual) (1.0-4.8) k/uL Monocytes # (Manual) (0-1.0) k/uL Eosinophils # (Manual) (0-0.7) k/uL Nucleated RBCs (0-0) /100 WBC Manual Slide Review Toxic Granulation Poikilocytosis (manual PT 10.6 (9.0-12.0) sec INR 1.1 (<1.2) APTT 24.0 (22.0-30.0) sec Sodium (137-145) mmol/L Potassium (3.5-5.1) mmol/L Chloride (98-107) mmol/L Carbon Dioxide (22-30) mmol/L Anion Gap mmol/L BUN (9-20) mg/dL Creatinine (0.66-1.25) mg/dL Est GFR (CKD-EPI)AfAm (>60 ml/min/1.73 sqM) Est GFR (CKD-EPI)NonAf (>60 ml/min/1.73 sqM) Glucose (74-99) mg/dL Calcium (8.4-10.2) mg/dL Total Bilirubin (0.2-1.3) mg/dL AST (17-59) U/L ALT (21-72) U/L Alkaline Phosphatase (38-126) U/L Total Creatine Kinase (55-170) U/L CK-MB (CK-2) (0.0-2.4) ng/mL CK-MB (CK-2) Rel Index Troponin I (0.000-0.034) ng/mL Total Protein (6.3-8.2) g/dL Albumin (3.5-5.0) g/dL Urine Color Light Yellow Urine Appearance Clear (Clear) Urine pH 5.5 (5.0-8.0) Ur Specific [place] 1.014 (1.001-1.035) Urine Protein Negative (Negative) Urine Glucose (UA) Negative (Negative) Urine Ketones Negative (Negative) Urine Blood Trace H (Negative) Urine Nitrite Negative (Negative) Urine Bilirubin Negative (Negative) Urine Urobilinogen <2.0 (<2.0) mg/dL Ur Leukocyte Esterase Negative (Negative) Urine RBC 2 (0-5) /hpf Urine WBC 4 (0-5) /hpf Urine WBC Clumps Rare H (None) /hpf - Medical Decision Making The patient is seen and examined. All diagnostics are reviewed. He does have an EKG done which shows a sinus bradycardia at a rate of 57. There is no acute ST-T wave changes identified. The MI intervals 182, QRS duration is 90, and the QTC intervals 445. The patient did have a laboratory analysis which does show slight anemia as well as a slight leukopenia. The patient had a computed tomography scan of the brain which does not show any acute processes. The CTA of the head and neck shows evidence of some right carotid stenosis of 70% and left carotid stenosis at 50%. Radiologist notes that this very similar to the previous study done in March 2017. The white also does have reports available of an echocardiogram done on 12/16/2017 in [place]. This does show some minor abnormalities but no severe findings as please see report that is on chart for details. He also had a nuclear Lexiscan stress myocardial perfusion study. This shows a small size mild intensity defect in the inferior and posterior giordano during both sets of images that appears artifactual versus a small old [place]. The ejection fraction was noted be 50%. There is some minor other abnormalities as well. The case is discussed with Dr. Lawson and he is quite familiar with the patient as the patient normally sees Dr. Lawson. He apparently has had multiple previous similar incidents over time. He is had multiple similar workups in and out of the hospital and has seen multiple neurologists in the local area as well as at [facility] and [facility]. His symptoms oftentimes are related to atypical migraine headaches. It appears as though he's had the TIA workup already has his neck has been imaged with the CT angiogram. He also just having echocardiogram several weeks ago. Dr. Lawson feels as though it is okay to have him be discharged home and have close follow-up. The patient and are agreeable to this plan as well and he leaves in no identifiable distress. Past Medical History Past Medical History: Blood Disorder, Coronary Artery Disease (CAD), Cancer, Chest Pain / Angina, CVA/TIA, GERD/Reflux, Hyperlipidemia, Hypertension, Neurologic Disorder, Osteoarthritis (OA), Syncope, Vascular Disorder Additional Past Medical History / Comment(s): migraines anemia BPH hypertension GERD coronary artery disease carotid stenosis migraines occipital uti,neuralgia RESTLESS leg syndrome, neuropathy.parkinsons,prostate cancer -2012 -had chemo- radiation,stroke 2004 and tia's x5,stress test 09-30-15,kidney stones, had pne vaccine after age 66 not sure of date. History of Any Multi-Drug Resistant Organisms: None Reported Past Surgical History: Back Surgery, Heart Catheterization With Stent, Hernia Repair, Orthopedic Surgery Additional Past Surgical History / Comment(s): right knee replacement 06/19/15, both knees have been replaced, bilateral Surgery, EGD and colonoscopy 2010 and 2015, left heart catheterization with the PCI of the LAD 2012,colonoscopy/egd, supraorbtal nerve percutaneous nerve stimulator trial 09-21-12,severasl prostate bx,laser vaporization for prostate cancer, epidural steroid inj 2012 Past Anesthesia/Blood Transfusion Reactions: No Reported Reaction Date of Last Stent Placement:: 2010 Past Psychological History: No Psychological Hx Reported Smoking Status: Never smoker Past Alcohol Use History: None Reported Past Drug Use History: None Reported - Past Family History Brother(s) Additional Family Medical History / Comment(s): Patient has 3 brothers with no major medical problems. Sister(s) Additional Family Medical History / Comment(s): Patient has 3 sisters that are all alive. 2 have high blood pressure. One has diabetes and stroke and is 81 years old. And all have history of tremors. Son(s) Additional Family Medical History / Comment(s): Patient has 3 sons and one daughter with no major medical problems. Father Family Medical History: Myocardial Infarction ([place]) Additional Family Medical History / Comment(s): Father at age 73 with history of Parkinson's disease, bowel cancer, bone cancer. Mother Family Medical History: Myocardial Infarction ([place]) Additional Family Medical History / Comment(s): Mother at age 85 with history of hypertension and dementia. Course Vital Signs 02/07/18 02/07/18 02/07/18 16:52 18:08 19:34 Temperature 97.7 F Pulse Rate 62 60 57 L Respiratory 18 18 16 Rate Blood Pressure 134/81 137/71 140/63 O2 Sat by Pulse 96 97 96 Oximetry Disposition Clinical Impression: Expressive aphasia, Blurry vision, Anemia, Atypical migraine Disposition: HOME SELF-CARE Condition: Fair Instructions: Migraine Headache (ED) Is patient prescribed a controlled substance at d/c from ED?: No Referrals: Louis Lawson MD [Primary Care Provider] - 02/11/18 Time of Disposition: 20:07
--- NOTE | 2018-02-07 19:01 | CT ---
EXAMINATION TYPE: CT brain wo con DATE OF EXAM: 02/07/2018 COMPARISON: 02/05/2018 HISTORY: Slurred speech, headache and weakness. CT DLP: 994.3 mGycm Automated exposure control for dose reduction was used. FINDINGS: There is cerebral cortical atrophy. There is hypodensity in the periventricular white matter. There i s no mass effect nor midline shift. There is no sign of intracranial hemorrhage. Calvarium is intact. IMPRESSION: CEREBRAL ATROPHY AND CHRONIC SMALL VESSEL ISCHEMIA. NO SIGNIFICANT CHANGE.
--- NOTE | 2018-02-07 19:07 | CT ---
EXAMINATION TYPE: CT angio head neck DATE OF EXAM: 02/07/2018 HISTORY: Slurred speech, headache and weakness. COMPARISON: 03/25/2017 CT DLP: 391 mGycm. Automated Exposure Control for Dose Reduction was Utilized. TECHNIQUE: CTA scan of the neck is performed with IV Contrast, patient injected with 65ml mL of Isov ue 370, axial images are obtained, coronal and sagittal reformatted images are reviewed. Three-D michelle nstructed images are created on an independent workstation and reviewed. FINDINGS: There is normal branching pattern of the great vessels on the aortic arch. There is bilateral arteria l flow in the vertebral arteries. There is arterial flow in the common internal and external carotid arteries bilaterally. There is a long segment of up to 70% stenosis of the proximal right internal ca rotid artery. There is plaque formation on the left side with up to 50% stenosis of the proximal left internal carotid artery. There is arterial flow in the vertebrobasilar artery system. There is arterial flow in the anterior m iddle and posterior cerebral arteries. I see no hemodynamically intracranial artery stenosis. There i s normal contrast opacification of the venous sinuses. CONCLUSION: Atherosclerotic changes at the carotid artery bifurcations. Approximate 70% stenosis proximal right i nternal carotid artery. Approximate 50% stenosis proximal left internal carotid artery. No change com pared to last exam. Negative CT angiogram of the brain.
[2018-02-07 19:35] VITALS: PULSE 57
[2018-02-07 19:42] LABS: Appearance,Urine Clear (Clear); Bilirubin,Urine Negative (Negative); Blood,Urine Trace (Negative); Color,Urine Light Yellow; Glucose,Urine (UA) Negative (Negative); Ketones,Urine Negative (Negative); Leukocyte Esterase,Urine Negative (Negative); Nitrite,Urine Negative (Negative); PH, Urine 5.5 (5.0-8.0); Protein,Urine Negative (Negative); RBC,Urine 2 /hpf (0-5); Specific Gravity,Urine 1.014 (1.001-1.035); Urobilinogen,Urine <2.0 mg/dL (<2.0); WBC,Urine 4 /hpf (0-5)
[2018-02-07 20:22] VITALS: BP 116/56; RESP 18; TEMP 97.4
== END 2018-02-07 20:20 | disposition home or self-care (01) ==
LOC: EC 16:40
DX: G43.009 Migraine without aura, not intractable, without status migrainosus (principal); D64.9 Anemia, unspecified; R47.01 Aphasia; R00.1 Bradycardia, unspecified; I65.23 Occlusion and stenosis of bilateral carotid arteries; D72.819 Decreased white blood cell count, unspecified; E78.5 Hyperlipidemia, unspecified; I10 Essential (primary) hypertension; I25.10 Atherosclerotic heart disease of native coronary artery without angina pectoris; G20 Parkinson's disease; G25.81 Restless legs syndrome; K21.9 Gastro-esophageal reflux disease without esophagitis; M19.90 Unspecified osteoarthritis, unspecified site; Z79.02 Long term (current) use of antithrombotics/antiplatelets; Z79.1 Long term (current) use of non-steroidal anti-inflammatories (NSAID); Z79.82 Long term (current) use of aspirin; Z79.899 Other long term (current) drug therapy; Z88.5 Allergy status to narcotic agent; Z88.8 Allergy status to other drugs, medicaments and biological substances; Z86.73 Personal history of transient ischemic attack (TIA), and cerebral infarction without residual deficits; Z86.79 Personal history of other diseases of the circulatory system; Z95.5 Presence of coronary angioplasty implant and graft; Z85.46 Personal history of malignant neoplasm of prostate; Z92.21 Personal history of antineoplastic chemotherapy; Z92.3 Personal history of irradiation
CPT/HCPCS: 36415; 93005; 80053; 82550; 82553; 84484; 85025; 85610; 85730; 81001; 70496; 70450; 70498; 99284; 96360; 96361 ×2; Q9967

== ENCOUNTER 2018-07-14 01:26 | Inpatient (IN) | payer MEDICARE ==
[2018-07-14] MEDS ORDERED: MORPHINE SULFATE 4 MG/ML SYRINGE IV STA ×2 (02:09→06:04)
--- NOTE | 2018-07-14 02:46 | CT ---
EXAMINATION TYPE: CT brain wo con for TPA DATE OF EXAM: 07/14/2018 COMPARISON: 02/07/2018 HISTORY: headache CT DLP: 1668.4 mGycm Automated exposure control for dose reduction was used. FINDINGS: There is hypodensity in the periventricular white matter. There are probably multiple white matter la cunar infarcts. There is no midline shift. There is no sign of intracranial hemorrhage. There is mild cerebral atrophy. Calvarium is intact. IMPRESSION: CEREBRAL MILD ATROPHY. CHRONIC SMALL VESSEL ISCHEMIA. 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
[2018-07-14] MEDS ORDERED: ONDANSETRON 4 MG/2 ML VIAL IVP STA (03:21)
[2018-07-14 03:35] LABS: Basophils % (A) 1 %; Eosinophils # (A) 0.2 k/uL (0-0.7); Eosinophils % (A) 5 %; HCT 35.9 % (39.0-53.0); HGB 11.6 gm/dL (13.0-17.5); Lymphocytes # (A) 0.7 k/uL (1.0-4.8); Lymphocytes % (A) 21 %; MCH 30.7 pg (25.0-35.0); MCHC 32.4 g/dL (31.0-37.0); MCV 94.8 fL (80.0-100.0); Mean Platelet Volume 7.4; Monocytes # (A) 0.2 k/uL (0-1.0); Monocytes % (A) 6 %; Neutrophils # (A) 2.2 k/uL (1.3-7.7); Neutrophils % (A) 65 %; Platelet Count 191 k/uL (150-450); RBC 3.79 m/uL (4.30-5.90); RDW 13.4 % (11.5-15.5); WBC 3.4 k/uL (3.8-10.6)
[2018-07-14 03:47] LABS: INR 1.1 (<1.2); Partial Thromboplastin Time 23.8 sec (22.0-30.0); Prothrombin Time 10.5 sec (9.0-12.0)
[2018-07-14 03:50] LABS: ALT 25 U/L (21-72); AST 25 U/L (17-59); Albumin 3.7 g/dL (3.5-5.0); Alkaline Phosphatase 71 U/L (38-126); Anion Gap 6 mmol/L; Blood Urea Nitrogen 35 mg/dL (9-20); Calcium 9.4 mg/dL (8.4-10.2); Carbon Dioxide 25 mmol/L (22-30); Chloride 106 mmol/L (98-107); Glucose 119 mg/dL (74-99); Sodium 137 mmol/L (137-145); Total Bilirubin 0.4 mg/dL (0.2-1.3); Total Protein 6.2 g/dL (6.3-8.2)
[2018-07-14 03:55] LABS: Creatine Kinase 100 U/L (55-170)
[2018-07-14 04:08] LABS: Creatine Kinase MB 2.7 ng/mL (0.0-2.4); Troponin I <0.012 ng/mL (0.000-0.034)
[2018-07-14] MEDS ORDERED: diphenhydrAMINE 50 MG/ML 1 ML VIAL IVP STA (06:04)
[2018-07-14] MEDS: SODIUM CHLORIDE 0.9% 1,000 ML IV SCH (06:22)
--- NOTE | 2018-07-14 07:11 | ED ---
Headache HPI - General Chief Complaint: Headache Stated Complaint: HEADACHE Time Seen by Provider: 07/14/18 01:59 Mode of arrival: wheelchair Limitations: no limitations - History of Present Illness Initial Comments: This patient is an 82-year-old man who presents with complaint of bifrontal headache. The patient states that he does tend to get headaches like this and he is describing as migraine. He states that it was not helped with the nurse at that he takes at home. The patient comes for evaluation because he also had an episode which speech was garbled. The patient's states she was not able to understand what he was saying. The change in his speech lasted a total of about half an hour, and had resolved just prior to arriving here. Patient's states that he does seem back at his baseline now. MD Complaint: "migraine" -: hour(s) Onset Description: gradual Location: right, left, frontal Severity: moderate Severity scale (1-10): 6 Quality: aching Consistency: constant Improves With: nothing Worsens With: none Context: occurred at rest Associated Symptoms: other (Aphasia) Treatments Prior to Arrival: none - Related Data Home Medications Medication Instructions Recorded Confirmed Carvedilol [Coreg] 25 mg PO BID-W/MEALS 05/21/14 07/14/18 cloNIDine HCL [Catapres] 0.05 mg PO BID 05/21/14 07/14/18 Famotidine [Pepcid] 20 mg PO HS 07/24/15 07/14/18 Montelukast [Singulair] 10 mg PO HS 09/19/15 07/14/18 Buta/APAP/Caf/Cod 69-465-00-30 2 cap PO Q4H PRN MDD 4 capsules 08/20/16 07/14/18 [Fioricet w/Cod 63-610-14-30MG] Lactulose 10 gm PO BID PRN 08/20/16 07/14/18 Latanoprost [Xalatan 0.005%] 1 drop BOTH EYES HS 08/20/16 07/14/18 Meloxicam [Mobic] 7.5 mg PO DAILY 08/20/16 07/14/18 Aspirin EC [Ecotrin Low Dose] 81 mg PO DAILY 03/05/17 07/14/18 Bisacodyl [Dulcolax] 10 mg RECTAL DAILY PRN 03/05/17 07/14/18 Cholecalciferol [Vitamin D3] 1,000 unit PO HS 03/05/17 07/14/18 Clopidogrel [Plavix] 75 mg PO DAILY 03/05/17 07/14/18 Diclofenac Sodium [Voltaren Gel] 2 gram TOPICAL QID PRN 03/05/17 07/14/18 Losartan [Cozaar] 50 mg PO DAILY 03/05/17 07/14/18 Chireno-3 Fatty Acids/Fish Oil [Fish 1 cap PO DAILY 03/05/17 07/14/18 Oil 1,000 mg Capsule] Ubidecarenone [Co Q-10] 200 mg PO DAILY 03/05/17 07/14/18 Pramipexole [Mirapex] 1 mg PO TID 03/23/17 07/14/18 Hydrochlorothiazide 25 mg PO DAILY 02/07/18 07/14/18 Rosuvastatin [Crestor] 20 mg PO DAILY 02/07/18 07/14/18 levETIRAcetam [Keppra] 250 mg PO DAILY 02/07/18 07/14/18 levETIRAcetam [Keppra] 500 mg PO HS 02/07/18 07/14/18 Previous Rx's Medication Instructions Recorded Loratadine [Claritin] 10 mg PO DAILY tab 03/27/17 amLODIPine [Norvasc] 5 mg PO DAILY #30 tab 03/27/17 Allergies Allergy/AdvReac Type Severity Reaction Status Date / Time metoclopramide [From Reglan] AdvReac SHAKES Verified 02/07/18 18:17 oxycodone HCl AdvReac Nausea & Verified 02/07/18 18:17 [From OxyContin] Vomiting Review of Systems ROS Statement: Those systems with pertinent positive or pertinent negative responses have been documented in the HPI. ROS Other: All systems not noted in ROS Statement are negative. Constitutional: Denies: fever, chills, weakness Eyes: Denies: vision change Respiratory: Denies: cough, dyspnea Cardiovascular: Denies: chest pain, palpitations, edema Gastrointestinal: Denies: abdominal pain, nausea, vomiting Genitourinary: Denies: dysuria Neurological: Reports: other (Aphasia). Denies: headache, weakness, numbness, paresthesias Past Medical History Past Medical History: Blood Disorder, Coronary Artery Disease (CAD), Cancer, Chest Pain / Angina, CVA/TIA, GERD/Reflux, Hyperlipidemia, Hypertension, Neurologic Disorder, Osteoarthritis (OA), Syncope, Vascular Disorder Additional Past Medical History / Comment(s): migraines anemia BPH hypertension GERD coronary artery disease carotid stenosis migraines occipital uti,neuralgia RESTLESS leg syndrome, neuropathy.parkinsons,prostate cancer -2012 -had chemo- radiation,stroke 2005 and tia's x5,stress test 09-30-15,kidney stones, had pne vaccine after age 66 not sure of date. History of Any Multi-Drug Resistant Organisms: None Reported Past Surgical History: Back Surgery, Heart Catheterization With Stent, Hernia Repair, Orthopedic Surgery Additional Past Surgical History / Comment(s): right knee replacement 06/19/15, both knees have been replaced, bilateral Surgery, EGD and colonoscopy 2010 and 2015, left heart catheterization with the PCI of the LAD 2012,colonoscopy/egd, supraorbtal nerve percutaneous nerve stimulator trial 09-21-12,severasl prostate bx,laser vaporization for prostate cancer, epidural steroid inj 2012 Past Anesthesia/Blood Transfusion Reactions: No Reported Reaction Date of Last Stent Placement:: 2010 Past Psychological History: No Psychological Hx Reported Smoking Status: Never smoker Past Alcohol Use History: None Reported Past Drug Use History: None Reported - Past Family History Brother(s) Additional Family Medical History / Comment(s): Patient has 3 brothers with no major medical problems. Sister(s) Additional Family Medical History / Comment(s): Patient has 3 sisters that are all alive. 2 have high blood pressure. One has diabetes and stroke and is 81 years old. And all have history of tremors. Son(s) Additional Family Medical History / Comment(s): Patient has 3 sons and one daughter with no major medical problems. Father Family Medical History: Myocardial Infarction ([place]) Additional Family Medical History / Comment(s): Father at age 73 with history of Parkinson's disease, bowel cancer, bone cancer. Mother Family Medical History: Myocardial Infarction ([place]) Additional Family Medical History / Comment(s): Mother at age 85 with history of hypertension and dementia. General Exam Limitations: no limitations General appearance: alert, in no apparent distress Head exam: Present: atraumatic, normocephalic Eye exam: Present: normal appearance, PERRL, EOMI. Absent: scleral icterus, conjunctival injection ENT exam: Present: normal oropharynx Neck exam: Present: normal inspection, full ROM Respiratory exam: Present: normal lung sounds bilaterally. Absent: respiratory distress, wheezes, rales, rhonchi, stridor Cardiovascular Exam: Present: regular rate, normal rhythm, normal heart sounds. Absent: systolic murmur, diastolic murmur, rubs, gallop GI/Abdominal exam: Present: soft. Absent: distended, tenderness, guarding, rebound, mass Extremities exam: Present: normal inspection, normal capillary refill. Absent: pedal edema, calf tenderness Neurological exam: Present: alert, oriented X3, CN II-XII intact. Absent: motor sensory deficit Skin exam: Present: warm, dry, intact, normal color. Absent: rash Course Vital Signs 07/14/18 07/14/18 01:40 06:05 Temperature 97.6 F 98 F Pulse Rate 74 Pulse Rate [ 76 Enterprise Analyst ] Respiratory 20 18 Rate Blood Pressure 126/77 Blood Pressure 128/82 [Supine] O2 Sat by Pulse 96 99 Oximetry Medical Decision Making - Lab Data Result diagrams: 07/14/18 03:20 07/14/18 03:20 Lab Results 07/14/18 07/14/18 07/14/18 Range/Units 03:20 03:20 03:20 WBC 3.4 L (3.8-10.6) k/uL RBC 3.79 L (4.30-5.90) m/uL Hgb 11.6 L (13.0-17.5) gm/dL Hct 35.9 L (39.0-53.0) % MCV 94.8 (80.0-100.0) fL MCH 30.7 (25.0-35.0) pg MCHC 32.4 (31.0-37.0) g/dL RDW 13.4 (11.5-15.5) % Plt Count 191 (150-450) k/uL Neutrophils % 65 % Lymphocytes % 21 % Monocytes % 6 % Eosinophils % 5 % Basophils % 1 % Neutrophils # 2.2 (1.3-7.7) k/uL Lymphocytes # 0.7 L (1.0-4.8) k/uL Monocytes # 0.2 (0-1.0) k/uL Eosinophils # 0.2 (0-0.7) k/uL Basophils # 0.0 (0-0.2) k/uL PT (9.0-12.0) sec INR (<1.2) APTT (22.0-30.0) sec Sodium 137 (137-145) mmol/L Potassium 4.0 (3.5-5.1) mmol/L Chloride 106 (98-107) mmol/L Carbon Dioxide 25 (22-30) mmol/L Anion Gap 6 mmol/L BUN 35 H (9-20) mg/dL Creatinine 0.87 (0.66-1.25) mg/dL Est GFR (CKD-EPI)AfAm >90 (>60 ml/min/1.73 sqM) Est GFR (CKD-EPI)NonAf 81 (>60 ml/min/1.73 sqM) Glucose 119 H (74-99) mg/dL Calcium 9.4 (8.4-10.2) mg/dL Total Bilirubin 0.4 (0.2-1.3) mg/dL AST 25 (17-59) U/L ALT 25 (21-72) U/L Alkaline Phosphatase 71 (38-126) U/L Total Creatine Kinase 100 (55-170) U/L CK-MB (CK-2) 2.7 H (0.0-2.4) ng/mL CK-MB (CK-2) Rel Index 2.7 Troponin I <0.012 (0.000-0.034) ng/mL Total Protein 6.2 L (6.3-8.2) g/dL Albumin 3.7 (3.5-5.0) g/dL 07/14/18 Range/Units 03:20 WBC (3.8-10.6) k/uL RBC (4.30-5.90) m/uL Hgb (13.0-17.5) gm/dL Hct (39.0-53.0) % MCV (80.0-100.0) fL MCH (25.0-35.0) pg MCHC (31.0-37.0) g/dL RDW (11.5-15.5) % Plt Count (150-450) k/uL Neutrophils % % Lymphocytes % % Monocytes % % Eosinophils % % Basophils % % Neutrophils # (1.3-7.7) k/uL Lymphocytes # (1.0-4.8) k/uL Monocytes # (0-1.0) k/uL Eosinophils # (0-0.7) k/uL Basophils # (0-0.2) k/uL PT 10.5 (9.0-12.0) sec INR 1.1 (<1.2) APTT 23.8 (22.0-30.0) sec Sodium (137-145) mmol/L Potassium (3.5-5.1) mmol/L Chloride (98-107) mmol/L Carbon Dioxide (22-30) mmol/L Anion Gap mmol/L BUN (9-20) mg/dL Creatinine (0.66-1.25) mg/dL Est GFR (CKD-EPI)AfAm (>60 ml/min/1.73 sqM) Est GFR (CKD-EPI)NonAf (>60 ml/min/1.73 sqM) Glucose (74-99) mg/dL Calcium (8.4-10.2) mg/dL Total Bilirubin (0.2-1.3) mg/dL AST (17-59) U/L ALT (21-72) U/L Alkaline Phosphatase (38-126) U/L Total Creatine Kinase (55-170) U/L CK-MB (CK-2) (0.0-2.4) ng/mL CK-MB (CK-2) Rel Index Troponin I (0.000-0.034) ng/mL Total Protein (6.3-8.2) g/dL Albumin (3.5-5.0) g/dL Disposition Clinical Impression: Headache, TIA (transient ischemic attack) Disposition: ADMITTED IP TO THIS HOSP Condition: Fair
[2018-07-14] MEDS ORDERED: INFLUENZA VACCINE (6 MOS+) 60 MCG/0.5 ML SYRINGE IM ONE (10:30)
--- NOTE | 2018-07-14 11:07 | US ---
EXAMINATION TYPE: US carotid duplex BILAT DATE OF EXAM: 07/14/2018 COMPARISON: 03/24/2017 CLINICAL HISTORY: Stenosis. EXAM MEASUREMENTS: RIGHT: Peak Systolic Velocity (PSV) cm/sec ----- Right CCA: 67.4 ----- Right ICA: 78.8 ----- Right ECA: 59.7 ICA/CCA ratio: 1.2 RIGHT: End Diastole cm/sec ----- Right CCA: 24.2 ----- Right ICA: 37.8 ----- Right ECA: 8.9 LEFT: Peak Systolic Velocity (PSV) cm/sec ----- Left CCA: 87.0 ----- Left ICA: 86.4 ----- Left ECA: 64.3 ICA/CCA ratio: 1.0 LEFT: End Diastole cm/sec ----- Left CCA: 30.4 ----- Left ICA: 27.0 ----- Left ECA: 8.4 VERTEBRALS (direction of flow): Right Vertebral: Antegrade Left Vertebral: Antegrade Rhythm: Normal Moderate atherosclerotic changes without significant velocity elevations. IMPRESSION: Moderate degree of grayscale atheromatous plaquing with no sonographically evident hemod ynamically significant stenosis within either visualized carotid arterial system. Criteria for Assigning % of Stenosis / Diameter reduction (Estimation based on the indirect measurements of the internal carotid artery velocities (ICA PSV). 1. Normal (no stenosis)=ICA PSV < 125 cm/s: ratio < 2.0: ICA EDV<40 cm/s. 2. Less than 50% stenosis=ICA PSV < 125 cm/s: ratio < 2.0: ICA EDV<40 cm/s. 3. 50 to 69% stenosis=ICA PSV of 125 to 230 cm/s: ration 2.0 ? 4.0: ICA EDV 40-100 cm/s. 4. Greater than 70% stenosis to near occlusion= ICA PSV > 230 cm/s: ratio > 4.0: ICA EDV > 100 cm/s. 5. Near occlusion= ICA PSV velocities may be low or undetectable: variable ratio and ICA EDV. 6. Total occlusion=unable to detect flow.
[2018-07-14] MEDS ORDERED: BUTALB/APAP/CAFF 50-325-40MG TAB PO PRN (14:17)
--- NOTE | 2018-07-14 15:00 | P.HPIM ---
History of Present Illness H&P Date: 07/14/18 Chief Complaint: Headache and slurred speech This is a 82-year-old male patient of Dr. 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 He does have some weakness on the left lower extremity side which is chronic Patient is also complaining of a headache from his neck and goes across the front of his head is chronic insomnia , and has chronic migraines. Patient's headache stays between 6-7 constantly, with blurred vision for the past 3 weeks, known macular degeneration. Also has periorbital pain, no sinus congestion no cough, no fever. He mentions that he has slurred speech or more garbled speech for the past 3-4 months, also worsening back pain, has chronic neuropathy of lower extremities, has chronic restless leg, Patient does state that he does not sleep well and he wakes up frequently during the night and is tired all day. He has not had a sleep study done. He denies any new weaknesses and no change in his speech. Patient had a hospitalization in September of this year and was found to have a 70% stenosis of the left internal carotid artery and was to follow-up with Dr. Londono. He denies any mentioned twitching or seizure activity. He does not have a seizure history. He states his balance but has restless leg and chronic neuropathy is not good but there is no change in this. His last admission was in March 2017 for syncope, has 70% carotid stenoses internal carotid artery, follows with Dr. Londono CAT scan of the brain showed cerebral atrophy and chronic small vessel ischemic change. Chest x-ray showed no acute cardiopulmonary disease. January 2017, CTA neck shows 70% stenosis proximal [place]. Sleep study performed 2016 for which CPAP was recommended at 9 cm water, AHI was 26 question compliance to meds In the emergency room, he had CTA of the head was unremarkable multiple lacunar infarcts, chronic small vessel ischemia more numerous than last CT in January 2018. Atherosclerotic plaque in both carotid bifurcations without hemodynamically significant stenosis moderate atherosclerotic change with plaque without significant flow limiting stenosis. Patient was admitted, and our first evaluation was in the emergency room, speech is normal has chronic short term memory loss, Consult with Dr. Badillo added and EEG ordered, MRI of the brain with MRA Review of Systems Constitutional: Reports as per HPI, Denies anorexia, Denies chills, Denies chronic headaches, Denies chronic pain, Denies daytime sleepiness, Denies fatigue, Denies fever, Denies lethargy, Denies malaise, Denies night sweats, Denies poor appetite, Denies sweats, Denies weakness, Denies weight gain, Denies weight loss Ears, nose, mouth and throat: Reports as per HPI, Denies ant. neck pain, Denies bleeding gums, Denies dental pain, Denies dysphagia, Denies epistaxis, Denies headache, Denies hoarseness, Denies mouth pain, Denies nasal congestion, Denies nasal discharge, Denies neck fullness/pressure, Denies neck lump, Denies nose pain, Denies odynophagia, Denies post-nasal drip, Denies sinus pain, Denies sinus pressure, Denies swelling in mouth, Denies swelling in throat, Denies sore throat, Denies vertigo, Denies voice changes Cardiovascular: Reports as per HPI, Denies chest pain, Denies claudication, Denies decreased exercise tolerance, Denies dyspnea on exertion, Denies edema, Denies high blood pressure, Denies irregular heart beat, Denies leg edema, Denies lightheadedness, Denies orthopnea, Denies palpitations, Denies paroxysmal nocturnal dyspnea, Denies phlebitis, Denies rapid heart beat, Denies shortness of breath, Denies syncope Respiratory: Reports as per HPI, Denies congestion, Denies cough, Denies cough with sputum, Denies dyspnea, Denies excessive sputum, Denies hemoptysis, Denies home oxygen, Denies pain, Denies pain on inspiration, Denies pleurisy, Denies respiratory infections, Denies sleep apnea, Denies snoring, Denies wheezing Gastrointestinal: Reports as per HPI, Denies abdominal pain, Denies belching, Denies bloating, Denies BRBPR, Denies change in bowel habits, Denies coffee ground emesis, Denies constipation, Denies diarrhea, Denies dyspepsia, Denies early satiety, Denies excessive gas, Denies heartburn, Denies hematemesis, Denies hematochezia, Denies indigestion, Denies jaundice, Denies lactose intolerance, Denies loss of appetite, Denies melena, Denies nausea, Denies vomiting Genitourinary: Reports as per HPI, Denies decreased libido, Denies difficulties fathering child, Denies discharge, Denies dysuria, Denies erectile dysfunction, Denies flank pain, Denies genital pain, Denies genital sores, Denies hematuria, Denies impotence, Denies incontinence, Denies kidney stones, Denies nocturia, Denies polyuria, Denies testicular lump, Denies testicular pain, Denies urinary frequency, Denies urinary hesitancy, Denies urinary retention Musculoskeletal: Reports as per HPI, Reports gait dysfunction, Reports limitation of motion, Reports low back pain, Reports morning stiffness, Reports muscle cramps, Reports muscle weakness, Denies arm numbness/tingling, Denies atrophy, Denies fractures, Denies frequent falls, Denies hot joints, Denies leg numbness/tingling, Denies loss of height, Denies myalgias, Denies neck pain, Denies neck stiffness, Denies prior amputations, Denies redness of joints, Denies shooting arm pain, Denies shooting leg pain Integumentary: Reports as per HPI, Denies acne, Denies boils, Denies brittle nails, Denies change in hair/nails, Denies color changes, Denies darkening of skin, Denies depigmentation, Denies dryness, Denies foot/leg ulcers, Denies growths, Denies hirsutism, Denies lesions, Denies onychomycosis, Denies pruritus , Denies rash, Denies sores, Denies striae, Denies unusual bruising, Denies wounds Neurological: Reports as per HPI, Reports headaches, Reports hearing difficulties, Reports memory loss, Reports migraines, Denies aphasia, Denies ataxia, Denies balance difficulties, Denies burning pain, Denies change in mentation, Denies change in smell/taste, Denies change in speech, Denies confusion, Denies convulsions, Denies double vision, Denies gait dysfunction, Denies head injury, Denies lack of coordination, Denies loss of vision, Denies motor disturbance, Denies numbness, Denies paralysis, Denies paresthesias, Denies seizures, Denies sensory deficit, Denies spasticity, Denies syncope, Denies tic, Denies tingling, Denies transient paralysis, Denies tremors, Denies vertigo, Denies weakness, Denies visual changes Psychiatric: Reports as per HPI, Reports insomnia, Reports irritability, Reports memory loss, Reports sleep disturbances, Denies anhedonia, Denies anxiety, Denies anxiety attacks, Denies change in appetite, Denies change in libido, Denies change in sleep habits, Denies confusion, Denies depression, Denies difficulty concentrating, Denies disorientation, Denies hallucinations, Denies hopelessness, Denies hypersomnia, Denies mood swings, Denies paranoia, Denies sadness/tearfulness, Denies suicidal ideation Endocrine: Reports as per HPI Hematologic/Lymphatic: Reports as per HPI Allergic/Immunologic: Reports as per HPI 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, multiple TIAs, parkinson's disease, neuralgia, neuropathy bilateral hands , legs and feet, thoracic spondylosis, prostrate cancer with surgery/chemo and radiation, UTIs, kidney stones, L eye glaucoma, PVD/bilateral lower extremity edema, caratid stenosis, aemia, bronchitis, lower GI bleed, ANDREA with CPap History of Any Multi-Drug Resistant Organisms: None Reported Past Surgical History: Adenoidectomy, Back Surgery, Heart Catheterization With Stent, Hernia Repair, Joint Replacement, Orthopedic Surgery, Prostate Surgery, Tonsillectomy Additional Past Surgical History / Comment(s): PCI with stent in 2013, prostate biopsies, laser vaporization of prostrate, bilateral inquinal hernia repairs, EGD/colonoscopy, supraorbital percutaneous nerve stimulator trial, epidural injections, low back surgery, R foot hammer toe surgery, bilateral total knee replacements, bilateral cataract removals/lens implants, hemorrhoidectomy, R side of head vein biopsy Past Anesthesia/Blood Transfusion Reactions: No Reported Reaction Additional Past Anesthesia/Blood Transfusion Reaction / Comment(s): Pt has received blood in past without reaction. Date of Last Stent Placement:: 2012 Smoking Status: Never smoker - Past Family History Brother(s) Additional Family Medical History / Comment(s): Patient has 3 brothers with no major medical problems. Sister(s) Additional Family Medical History / Comment(s): Patient has 3 sisters that are all alive. 2 have high blood pressure. One has diabetes and stroke and is 81 years old. And all have history of tremors. Son(s) Additional Family Medical History / Comment(s): Patient has 3 sons and one daughter with no major medical problems. Father Family Medical History: Myocardial Infarction ([place]) Additional Family Medical History / Comment(s): Father at age 73 with history of Parkinson's disease, bowel cancer, bone cancer. Mother Family Medical History: Myocardial Infarction ([place]) Additional Family Medical History / Comment(s): Mother at age 85 with history of hypertension and dementia. Medications and Allergies Home Medications Medication Instructions Recorded Confirmed Type cloNIDine HCL [Catapres] 0.05 mg PO BID 05/21/14 07/14/18 History Famotidine [Pepcid] 20 mg PO HS 07/24/15 07/14/18 History Montelukast [Singulair] 10 mg PO HS 09/19/15 07/14/18 History Latanoprost [Xalatan 0.005%] 1 drop BOTH EYES HS 08/20/16 07/14/18 History Meloxicam [Mobic] 7.5 mg PO DAILY 08/20/16 07/14/18 History Aspirin EC [Ecotrin Low Dose] 81 mg PO DAILY 03/05/17 07/14/18 History Cholecalciferol [Vitamin D3] 1,000 unit PO HS 03/05/17 07/14/18 History Clopidogrel [Plavix] 75 mg PO DAILY 03/05/17 07/14/18 History Ubidecarenone [Co Q-10] 200 mg PO DAILY 03/05/17 07/14/18 History Pramipexole [Mirapex] 1 mg PO BID 03/23/17 07/14/18 History amLODIPine [Norvasc] 5 mg PO DAILY #30 tab 03/27/17 07/14/18 Rx Hydrochlorothiazide 25 mg PO DAILY 02/07/18 07/14/18 History Rosuvastatin [Crestor] 20 mg PO DAILY 02/07/18 07/14/18 History levETIRAcetam [Keppra] 250 mg PO DAILY 02/07/18 07/14/18 History levETIRAcetam [Keppra] 500 mg PO HS 02/07/18 07/14/18 History Butalb/Acetaminophen/Caffeine 1 - 2 each PO Q6H PRN MDD 6 TABS 07/14/18 History [Fioricet 50-325-40] Ferrous Sulfate [Feosol] 325 mg PO DAILY 07/14/18 07/14/18 History Losartan Potassium 100 mg PO DAILY 07/14/18 07/14/18 History [place] 3-Krill Oil 1 cap PO DAILY 07/14/18 07/14/18 History Niacin 500 mg PO DAILY 07/14/18 07/14/18 History Allergies Allergy/AdvReac Type Severity Reaction Status Date / Time metoclopramide [From Reglan] AdvReac SHAKES Verified 07/14/18 09:57 oxycodone HCl AdvReac Nausea & Verified 07/14/18 09:57 [From OxyContin] Vomiting Physical Exam Vitals: Vital Signs Temp Pulse Pulse Resp BP BP Pulse Ox 07/14/18 13:04 116/72 07/14/18 13:03 84 16 96 07/14/18 11:16 98.0 F 78 16 106/86 98 07/14/18 10:12 97.9 F 78 16 122/80 95 07/14/18 08:17 97.0 F L 77 77 16 121/79 121/79 98 07/14/18 07:00 76 16 128/82 92 L 07/14/18 06:05 98 F 76 18 128/82 99 07/14/18 06:00 76 16 122/77 93 L 07/14/18 05:00 79 21 113/75 95 07/14/18 04:00 77 18 118/75 95 07/14/18 01:40 97.6 F 74 20 126/77 96 Intake and Output 07/13/18 07/14/18 07/14/18 22:59 06:59 14:59 Output Total 275 Balance -275 Output: Urine 275 Other: # Voids 1 Weight 94.801 kg - Constitutional General appearance: cooperative, no acute distress - EENT Eyes: anicteric sclerae, EOMI, PERRLA, dentition normal, normal appearance ENT: hearing grossly normal, NA/AT, normal oropharynx - Neck Neck: no lymphadenopathy, normal ROM, no other, no rigidity, no stridor, no thyromegaly - Respiratory Respiratory: bilateral: CTA, negative: diminished, dullness, rales - Cardiovascular Rhythm: regular Heart sounds: normal: S1, S2 Abnormal Heart Sounds: no systolic murmur, no diastolic murmur, no rub, no S3 Gallop, no S4 Gallop, no click, no other - Gastrointestinal General gastrointestinal: decreased bowel sounds, normal bowel sounds, soft - Integumentary Integumentary: decreased turgor, normal - Neurologic Neurologic: CNII-XII intact - Musculoskeletal Musculoskeletal: gait normal, strength equal bilaterally - Psychiatric Psychiatric: A&O x's 3, appropriate affect Results CBC & Chem 7: 07/14/18 03:20 07/14/18 03:20 Labs: Abnormal Lab Results - Last 24 Hours (Table) 07/14/18 07/14/18 07/14/18 Range/Units 03:20 03:20 03:20 WBC 3.4 L (3.8-10.6) k/uL RBC 3.79 L (4.30-5.90) m/uL Hgb 11.6 L (13.0-17.5) gm/dL Hct 35.9 L (39.0-53.0) % Lymphocytes # 0.7 L (1.0-4.8) k/uL BUN 35 H (9-20) mg/dL Glucose 119 H (74-99) mg/dL CK-MB (CK-2) 2.7 H (0.0-2.4) ng/mL Total Protein 6.2 L (6.3-8.2) g/dL Laboratory Results WBC 3.4 k/uL (3.8-10.6) L 07/14/18 03:20 RBC 3.79 m/uL (4.30-5.90) L 07/14/18 03:20 Hgb 11.6 gm/dL (13.0-17.5) L 07/14/18 03:20 Hct 35.9 % (39.0-53.0) L 07/14/18 03:20 MCV 94.8 fL (80.0-100.0) 07/14/18 03:20 MCH 30.7 pg (25.0-35.0) 07/14/18 03:20 MCHC 32.4 g/dL (31.0-37.0) 07/14/18 03:20 RDW 13.4 % (11.5-15.5) 07/14/18 03:20 Plt Count 191 k/uL (150-450) 07/14/18 03:20 Neutrophils % 65 % 07/14/18 03:20 Lymphocytes % 21 % 07/14/18 03:20 Monocytes % 6 % 07/14/18 03:20 Eosinophils % 5 % 07/14/18 03:20 Basophils % 1 % 07/14/18 03:20 Neutrophils # 2.2 k/uL (1.3-7.7) 07/14/18 03:20 Lymphocytes # 0.7 k/uL (1.0-4.8) L 07/14/18 03:20 Monocytes # 0.2 k/uL (0-1.0) 07/14/18 03:20 Eosinophils # 0.2 k/uL (0-0.7) 07/14/18 03:20 Basophils # 0.0 k/uL (0-0.2) 07/14/18 03:20 PT 10.5 sec (9.0-12.0) 07/14/18 03:20 INR 1.1 (<1.2) 07/14/18 03:20 APTT 23.8 sec (22.0-30.0) 07/14/18 03:20 Sodium 137 mmol/L (137-145) 07/14/18 03:20 Potassium 4.0 mmol/L (3.5-5.1) 07/14/18 03:20 Chloride 106 mmol/L (98-107) 07/14/18 03:20 Carbon Dioxide 25 mmol/L (22-30) 07/14/18 03:20 Anion Gap 6 mmol/L 07/14/18 03:20 BUN 35 mg/dL (9-20) H 07/14/18 03:20 Creatinine 0.87 mg/dL (0.66-1.25) 07/14/18 03:20 Est GFR (CKD-EPI)AfAm >90 (>60 ml/min/1.73 sqM) 07/14/18 03:20 Est GFR (CKD-EPI)NonAf 81 (>60 ml/min/1.73 sqM) 07/14/18 03:20 Glucose 119 mg/dL (74-99) H 07/14/18 03:20 Calcium 9.4 mg/dL (8.4-10.2) 07/14/18 03:20 Total Bilirubin 0.4 mg/dL (0.2-1.3) 07/14/18 03:20 AST 25 U/L (17-59) 07/14/18 03:20 ALT 25 U/L (21-72) 07/14/18 03:20 Alkaline Phosphatase 71 U/L (38-126) 07/14/18 03:20 Total Creatine Kinase 100 U/L (55-170) 07/14/18 03:20 CK-MB (CK-2) 2.7 ng/mL (0.0-2.4) H 07/14/18 03:20 CK-MB (CK-2) Rel Index 2.7 07/14/18 03:20 Troponin I <0.012 ng/mL (0.000-0.034) 07/14/18 09:24 Total Protein 6.2 g/dL (6.3-8.2) L 07/14/18 03:20 Albumin 3.7 g/dL (3.5-5.0) 07/14/18 03:20 Thrombosis Risk Factor Assmnt - DVT/VTE Prophylaxis DVT/VTE Prophylaxis: Pharmacologic Prophylaxis ordered - Choose All That Apply Any of the Below Risk Factors Present?: Yes Each Factor Represents 1 point: Obesity (BMI >25) Other Risk Factors: Yes Each Risk Factor Represents 2 Points: Malignancy Each Risk Factor Represents 3 Points: Age 75 years or older Other congenital or acquired thrombophilia - If yes, enter type in comment: No Thrombosis Risk Factor Assessment Total Risk Factor Score: 6 Thrombosis Risk Factor Assessment Level: High Risk Assessment and Plan Plan: 1. Intractable migraines, with known history of multiple TIAs, increasing the coronary infarct noted on CT of the brain, underlying vasculitis cannot be ruled out, cannot rule out cryptogenic CVA, MRI of the brain with MRA to be done , and we'll going to consult neurology Dr. Badillo. Vasculitis panel to be done , sleep hygiene reinforced, we are going to obtain for increased regarding the CPAP device that was supposed to be given to him, continue on Plavix, might need consultation with cardiology should the MRI show multiple infarcts. Continue Plavix and statin, antihypertensive agents, obtain echocardiogram 2. Carotid stenosis with 70% plaque formation in the left ICA, Dr. Londono was followed as an outpatient, we'll going to decide whether any surgical intervention would be needed at this time 3. Lumbar disc disease with exacerbation of pain, chronic left hemiparesis, unknown MRI March 2016 showing stable DJD with facet arthropathy and neural foraminal encroachment, and iliac artery aneurysm, risk bulging without disc herniation however there is also anterior mass effect on the pickle sac as previous located L3-L4 L4-L5 L5-S1 imaging studies from 2016, has combination of hypertrophic facet arthropathy and ligamentum flavum thickening posterior disc herniation C4-C5, mild spinal canal stenosis no myelopathic cord signal abnormality, also has variable neural foraminal stenosis moderate to severe right C6-C7. 4. CAD post-PCI of the LAD. Continue Coreg 25 mg orally twice every day, Plavix 75 mg orally once every day, fish oil. 5. Hypertension and hypertensive cardiovascular disease. Continue patient on losartan 50 mg orally once every day, Coreg 25 mg orally twice every day and clonidine 0.05 mg orally twice every day. 6. Hyperlipidemia. Continue Crestor 40 mg orally once every day. 7 Migraine headache, presenting now with what appears to be a tension headache. Imitrex ordered 1. Patient states Fioricet does not help. 8. Macular degeneration left more than right, follows with retinal specialist 9. Enlarged prostate. Continue Flomax 0.4 g orally once every day. 10. Osteoarthritis post bilateral total knee arthroplasties. continue Mobic. 11. Obstructive sleep apnea, patient is supposed to be on CPAP machine with 9 cm water as previously recommended, compliance reinforced, unknown whether patient is machine or not 12. DVT prophylaxis. Lovenox 40 mg subcutaneously every 24 hours. 13. GI prophylaxis. Omeprazole. 14. Admit to inpatient. Estimate a length of stay 2 midnights. 15 Chronic sleep disturbance, melatonin 6 mg at bedtime 16 History of recurrent syncope in the past, none since March 2017, etiology could be possible seizures, on maintenance Keppra 250 mg daily and 500 mg daily at bedtime 17. Parkinson's followed by Dr. Byrd, she should be on medication for this and this new drug he cannot relate to her name 18. Impaired balance, PT OT and speech, has also short-term memory losses 20. Mild protein calorie malnutrition
[2018-07-14 16:19] VITALS: RESP 18
[2018-07-14] MEDS ORDERED: MORPHINE SULFATE 4 MG/ML SYRINGE IVP ONE (16:31)
--- NOTE | 2018-07-14 16:31 | P.CNNES ---
History of Present Illness Consult date: 07/14/18 Requesting physician: Sharri Nguyen Reason for Consult: TIA History of Present Illness: Patient is a pleasant 82-year-old male who is being evaluated by the neurology service on 07/14/2018 per the request of Dr. Dr. Nguyen for TIA. Patient states he has a history of migraine headaches and takes Fioricet in the home setting. Patient reports he needs to use Fioricet 2-3 times per week. Patient also had episode of garbled speech. Patient's stated she was not able to understand patient was saying. They decided to come to [facility] for evaluation. The states this garbled speech lasted approximately half an hour and resolved just prior to arriving at the hospital. Patient does have history of TIA, syncopal episodes, migraine headaches, Parkinson's disease, occipital neuralgia, chronic back pain, hypertension and CAD. Computed tomography scan of the brain was done on admission and shows cerebral atrophy and chronic small vessel ischemia. CT also reveals multiple lacunar infarcts which are more numerous and number than as seen on the last computed tomography scan. Carotid Doppler showed no evidence of hemodynamically significant stenosis. Vital signs on admission showed temp 97.0 , pulse 77, respiratory rate 16, blood pressure 121/79, and oxygen 98% on room air. Patient is on Plavix 75 mg by mouth daily and aspirin 325 mg by mouth daily. Patient is also on statin therapy daily. At the time of my evaluation, patient is resting in bed complaining of a severe headache. Patient does not appear to be in any acute distress. Review of Systems REVIEW OF SYSTEMS: Otherwise unremarkable and noncontributory. 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, multiple TIAs, parkinson's disease, neuralgia, neuropathy bilateral hands , legs and feet, thoracic spondylosis, prostrate cancer with surgery/chemo and radiation, UTIs, kidney stones, L eye glaucoma, PVD/bilateral lower extremity edema, caratid stenosis, aemia, bronchitis, lower GI bleed, ANDREA with CPap History of Any Multi-Drug Resistant Organisms: None Reported Past Surgical History: Adenoidectomy, Back Surgery, Heart Catheterization With Stent, Hernia Repair, Joint Replacement, Orthopedic Surgery, Prostate Surgery, Tonsillectomy Additional Past Surgical History / Comment(s): PCI with stent in 2013, prostate biopsies, laser vaporization of prostrate, bilateral inquinal hernia repairs, EGD/colonoscopy, supraorbital percutaneous nerve stimulator trial, epidural injections, low back surgery, R foot hammer toe surgery, bilateral total knee replacements, bilateral cataract removals/lens implants, hemorrhoidectomy, R side of head vein biopsy Past Anesthesia/Blood Transfusion Reactions: No Reported Reaction Additional Past Anesthesia/Blood Transfusion Reaction / Comment(s): Pt has received blood in past without reaction. Date of Last Stent Placement:: 2012 Smoking Status: Never smoker - Past Family History Brother(s) Additional Family Medical History / Comment(s): Patient has 3 brothers with no major medical problems. Sister(s) Additional Family Medical History / Comment(s): Patient has 3 sisters that are all alive. 2 have high blood pressure. One has diabetes and stroke and is 81 years old. And all have history of tremors. Son(s) Additional Family Medical History / Comment(s): Patient has 3 sons and one daughter with no major medical problems. Father Family Medical History: Myocardial Infarction ([place]) Additional Family Medical History / Comment(s): Father at age 73 with history of Parkinson's disease, bowel cancer, bone cancer. Mother Family Medical History: Myocardial Infarction ([place]) Additional Family Medical History / Comment(s): Mother at age 85 with history of hypertension and dementia. Medications and Allergies Home Medications Medication Instructions Recorded Confirmed Type cloNIDine HCL [Catapres] 0.05 mg PO BID 05/21/14 07/14/18 History Famotidine [Pepcid] 20 mg PO HS 07/24/15 07/14/18 History Montelukast [Singulair] 10 mg PO HS 09/19/15 07/14/18 History Latanoprost [Xalatan 0.005%] 1 drop BOTH EYES HS 08/20/16 07/14/18 History Meloxicam [Mobic] 7.5 mg PO DAILY 08/20/16 07/14/18 History Aspirin EC [Ecotrin Low Dose] 81 mg PO DAILY 03/05/17 07/14/18 History Cholecalciferol [Vitamin D3] 1,000 unit PO HS 03/05/17 07/14/18 History Clopidogrel [Plavix] 75 mg PO DAILY 03/05/17 07/14/18 History Ubidecarenone [Co Q-10] 200 mg PO DAILY 03/05/17 07/14/18 History Pramipexole [Mirapex] 1 mg PO BID 03/23/17 07/14/18 History amLODIPine [Norvasc] 5 mg PO DAILY #30 tab 03/27/17 07/14/18 Rx Hydrochlorothiazide 25 mg PO DAILY 02/07/18 07/14/18 History Rosuvastatin [Crestor] 20 mg PO DAILY 02/07/18 07/14/18 History levETIRAcetam [Keppra] 250 mg PO DAILY 02/07/18 07/14/18 History levETIRAcetam [Keppra] 500 mg PO HS 02/07/18 07/14/18 History Butalb/Acetaminophen/Caffeine 1 - 2 each PO Q6H PRN MDD 6 TABS 07/14/18 History [Fioricet 50-325-40] Ferrous Sulfate [Feosol] 325 mg PO DAILY 07/14/18 07/14/18 History Losartan Potassium 100 mg PO DAILY 07/14/18 07/14/18 History Wade-Red [place] 3-Krill Oil 1 cap PO DAILY 07/14/18 07/14/18 History Niacin 500 mg PO DAILY 07/14/18 07/14/18 History Allergies Allergy/AdvReac Type Severity Reaction Status Date / Time metoclopramide [From Reglan] AdvReac SHAKES Verified 07/14/18 09:57 oxycodone HCl AdvReac Nausea & Verified 07/14/18 09:57 [From OxyContin] Vomiting Physical Examination - Vital Signs Vital Signs: Vital Signs Temp Pulse Pulse Resp BP BP Pulse Ox 07/14/18 13:04 116/72 07/14/18 13:03 84 16 96 07/14/18 11:16 98.0 F 78 16 106/86 98 07/14/18 10:12 97.9 F 78 16 122/80 95 07/14/18 08:17 97.0 F L 77 77 16 121/79 121/79 98 07/14/18 07:00 76 16 128/82 92 L 07/14/18 06:05 98 F 76 18 128/82 99 07/14/18 06:00 76 16 122/77 93 L 07/14/18 05:00 79 21 113/75 95 07/14/18 04:00 77 18 118/75 95 07/14/18 01:40 97.6 F 74 20 126/77 96 Intake and Output 07/14/18 07/14/18 07/14/18 06:59 14:59 22:59 Output Total 275 Balance -275 Output: Urine 275 Other: # Voids 1 Weight 94.801 kg PHYSICAL EXAM: GENERAL APPEARANCE: Patient is a well-developed, male who appears to be in no acute distress. HEENT: Normocephalic, atraumatic, no facial asymmetry is seen. Neck is supple with no masses felt. CARDIOVASCULAR: Regular rate and rhythm. ABDOMEN: Nontender, nondistended. EXTREMITIES: Show no edema or clubbing. NEUROLOGICAL EXAM: Patient is awake, alert, and oriented 3. Speech and language are normal. Strength is full in all 4 extremities. Sensory exam to light touch is normal in all 4 extremities. No facial asymmetry is seen on cranial nerve testing. No tremors or seizure-like activity noted. Results - Laboratory Findings CBC and BMP: 07/14/18 03:20 07/14/18 03:20 Abnormal Lab Findings: Abnormal Labs 07/14/18 07/14/18 07/14/18 03:20 03:20 03:20 WBC 3.4 L RBC 3.79 L Hgb 11.6 L Hct 35.9 L Lymphocytes # 0.7 L BUN 35 H Glucose 119 H CK-MB (CK-2) 2.7 H Total Protein 6.2 L Assessment and Plan Plan: Impression: 1. TIA 2. Slurred speech, resolved 3. Intractable migraine 4. CAD 5. Chronic back pain 6. History of carotid stenosis 7. Parkinson's disease Recommendation: It does appear patient experienced a transient ischemic attack with a transient episode of slurred speech. Computed tomography scan of the brain showed multiple infarcts which is increased as compared to last CT of the brain. Patient is awaiting an MRI/MRA to be done. Carotid Doppler showed no hemodynamically significant stenosis. I will order an EEG, fasting lipid panel , and serum homocysteine level. As for his headache, I recommend Fioricet with codeine every 8 hours when necessary. Patient states this is what works for him at home. As for his Parkinson's, continue Mirapex. Patient is on Keppra but does not have a seizure disorder. This is likely for mood stabilization. Continue Plavix 75 mg by mouth daily and aspirin 325 mg by mouth daily. Continue neurological checks. I will continue to follow with you. Further recommendations following testing. Thank you for allowing me to participate in the care of your patient. Feel free to call with any questions or concerns. I performed an examination of the patient and discussed the management with the COACH TOUR DRIVER. I have reviewed the COACH TOUR DRIVER notes and agree with the findings and plan of care.
[2018-07-14] MEDS: DOCUSATE 100 MG CAP PO SCH ×2 (16:56→18:07)
[2018-07-14] MEDS: FAMOTIDINE 20 MG TAB PO SCH ×2 (16:57→21:33)
[2018-07-14] MEDS: PRAMIPEXOLE 1 MG TAB PO SCH (21:33)
[2018-07-14] MEDS: CHOLECALCIFEROL 1,000 UNIT TAB PO SCH (21:33)
[2018-07-14] MEDS: levETIRAcetam 500 MG TAB PO SCH (21:33)
[2018-07-14] MEDS: cloNIDine HCL 0.1 MG TAB PO SCH (21:33)
[2018-07-14] MEDS: MONTELUKAST 10 MG TAB PO SCH (21:34)
[2018-07-14] MEDS: LATANOPROST 0.005% OPHTH DROPS 2.5 ML BTL BOTH EYES SCH (21:34)
[2018-07-14] MEDS: BUTA/APAP/CAF/COD 50-325-40-30 CAP PO PRN (22:53)
[2018-07-15] MEDS: DOCUSATE 100 MG CAP PO SCH ×2 (02:35→20:37)
[2018-07-15] MEDS ORDERED: ASPIRIN 325 MG TAB PO SCH (06:07)
[2018-07-15 07:13] LABS: Basophils % (A) 1 %; Eosinophils # (A) 0.2 k/uL (0-0.7); Eosinophils % (A) 5 %; HCT 36.7 % (39.0-53.0); HGB 11.8 gm/dL (13.0-17.5); Lymphocytes % (A) 31 %; MCV 93.6 fL (80.0-100.0); Monocytes # (A) 0.2 k/uL (0-1.0); Monocytes % (A) 7 %; Neutrophils # (A) 1.7 k/uL (1.3-7.7); Neutrophils % (A) 54 %; Platelet Count 177 k/uL (150-450); RBC 3.93 m/uL (4.30-5.90); RDW 12.9 % (11.5-15.5); WBC 3.2 k/uL (3.8-10.6)
[2018-07-15 07:28] LABS: ALT 24 U/L (21-72); AST 22 U/L (17-59); Albumin 3.2 g/dL (3.5-5.0); Alkaline Phosphatase 78 U/L (38-126); Anion Gap 7 mmol/L; Blood Urea Nitrogen 21 mg/dL (9-20); Calcium 9.2 mg/dL (8.4-10.2); Carbon Dioxide 26 mmol/L (22-30); Chloride 106 mmol/L (98-107); Cholesterol 231 mg/dL (<200); Glucose 109 mg/dL (74-99); HDL Cholesterol 49 mg/dL (40-60); LDL Cholesterol,Calculated 150 mg/dL (0-99); Potassium 4.4 mmol/L (3.5-5.1); Sodium 139 mmol/L (137-145); Total Bilirubin 0.4 mg/dL (0.2-1.3); Total Protein 5.8 g/dL (6.3-8.2); Triglycerides 161 mg/dL (<150)
[2018-07-15 08:13] LABS: C Reactive Protein <5.0 mg/L (<10.0)
[2018-07-15 09:07] LABS: Erythrocyte Sedimentation Rate 24 mm/hr (0-15)
[2018-07-15] MEDS ORDERED: ONDANSETRON 4 MG/2 ML VIAL IVP PRN (11:04)
--- NOTE | 2018-07-15 14:17 | P.PN ---
Subjective Progress Note Date: 07/15/18 This is a 82-year-old male patient of Dr. 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 He does have some weakness on the left lower extremity side which is chronic Patient is also complaining of a headache from his neck and goes across the front of his head is chronic insomnia , and has chronic migraines. Patient's headache stays between 6-7 constantly, with blurred vision for the past 3 weeks, known macular degeneration. Also has periorbital pain, no sinus congestion no cough, no fever. He mentions that he has slurred speech or more garbled speech for the past 3-4 months, also worsening back pain, has chronic neuropathy of lower extremities, has chronic restless leg, Patient does state that he does not sleep well and he wakes up frequently during the night and is tired all day. He has not had a sleep study done. He denies any new weaknesses and no change in his speech. Patient had a hospitalization in September of this year and was found to have a 70% stenosis of the left internal carotid artery and was to follow-up with Dr. Londono. He denies any mentioned twitching or seizure activity. He does not have a seizure history. He states his balance but has restless leg and chronic neuropathy is not good but there is no change in this. His last admission was in March 2017 for syncope, has 70% carotid stenoses internal carotid artery, follows with Dr. Londono CAT scan of the brain showed cerebral atrophy and chronic small vessel ischemic change. Chest x-ray showed no acute cardiopulmonary disease. January 2017, CTA neck shows 70% stenosis proximal R [place]. Sleep study performed 2016 for which CPAP was recommended at 9 cm water, AHI was 26 question compliance to meds In the emergency room, he had CTA of the head was unremarkable multiple lacunar infarcts, chronic small vessel ischemia more numerous than last CT in January 2018. Atherosclerotic plaque in both carotid bifurcations without hemodynamically significant stenosis moderate atherosclerotic change with plaque without significant flow limiting stenosis. Patient was admitted, and our first evaluation was in the emergency room, speech is normal has chronic short term memory loss, Consult with Dr. Badillo added and EEG ordered, MRI of the brain with MRA 07/15: Patient has been seen by neurology for TIA. MRI MRA of the brain is to be done this afternoon. Carotid ultrasound shows no hemodynamically significant stenosis. EEG is pending. Fioricet was added for headache neurology recommended continuing Plavix and full-strength aspirin. Vital signs have been stable, pulse ox 96% on room air. Triglycerides 161, cholesterol 231 , LDL 150 and HDL 49. Angiotensin-converting enzyme was 101. Troponins been negative on 3 draws. TSH was 2.220. Review Of Systems: Constitutional: No fever, no chills, no night sweats. No weight change. EENT: No headache. No blurred vision or double vision, no loss of vision. No loss of Hearing, no ringing in the ears, no dizziness. No nasal drainage or congestion. No epistaxis. No sore throat. Lungs: No shortness of breath, cough, no sputum production. No wheezing. Cardiovascular: No chest pain, no lower extremity edema. No palpitations. No paroxysmal nocturnal dyspnea. No orthopnea. No lightheadedness or dizziness. No syncopal episodes. Abdominal: No abdominal pain. No nausea, vomiting. No diarrhea. No constipation. No bloody or tarry stools.. No loss of appetite. Genitourinary: No dysuria, increased frequency, urgency. No urinary retention. Musculoskeletal: No myalgias. No muscle weakness, no gait dysfunction, no frequent falls. + back pain. + neck pain. Integumentary: No wounds, no lesions. No rash or pruritus. No unusual bruising. No change in hair or nails. Neurologic: No aphasia. No facial droop. No change in mentation. No head injury. No headache. No paralysis. No paresthesia. Psychiatric: No depression. No anxiety. No mood swings. Endocrine: No abnormal blood sugars. No weight change. No excessive sweating or thirst. No cold intolerance. No weight change. Objective - Vital Signs Vital signs: Vital Signs Temp 98.1 F 07/15/18 07:50 Pulse 59 L 07/15/18 07:50 Resp 18 07/15/18 07:50 BP 121/68 07/15/18 07:50 Pulse Ox 96 07/15/18 07:50 Intake & Output 07/14/18 07/15/18 07/15/18 18:59 06:59 18:59 Intake Total 240 10 240 Output Total 475 400 Balance -235 10 -160 Weight 88.7 kg Intake: IV 10 .9 10 Oral 240 240 Output: Urine 475 400 Other: # Voids 1 - Exam General appearance: cooperative, no acute distress - EENT Eyes: anicteric sclerae, EOMI, PERRLA, dentition normal, normal appearance ENT: hearing grossly normal, NA/AT, normal oropharynx - Neck Neck: no lymphadenopathy, normal ROM, no other, no rigidity, no stridor, no thyromegaly - Respiratory Respiratory: bilateral: CTA, negative: diminished, dullness, rales - Cardiovascular Rhythm: regular Heart sounds: normal: S1, S2 Abnormal Heart Sounds: no systolic murmur, no diastolic murmur, no rub, no S3 Gallop, no S4 Gallop, no click, no other - Gastrointestinal General gastrointestinal: decreased bowel sounds, normal bowel sounds, soft - Integumentary Integumentary: decreased turgor, normal - Neurologic Neurologic: CNII-XII intact - Musculoskeletal Musculoskeletal: gait normal, strength equal bilaterally - Psychiatric Psychiatric: A&O x's 3, appropriate affect - Labs CBC & Chem 7: 07/15/18 06:20 07/15/18 06:20 Labs: Abnormal Lab Results - Last 24 Hours (Table) 07/14/18 07/15/18 07/15/18 Range/Units 15:19 06:20 06:20 WBC 3.2 L (3.8-10.6) k/uL RBC 3.93 L (4.30-5.90) m/uL Hgb 11.8 L (13.0-17.5) gm/dL Hct 36.7 L (39.0-53.0) % ESR 24 H (0-15) mm/hr BUN 21 H (9-20) mg/dL Glucose 109 H (74-99) mg/dL Total Protein 5.8 L (6.3-8.2) g/dL Albumin 3.2 L (3.5-5.0) g/dL Triglycerides 161 H (<150) mg/dL Cholesterol 231 H (<200) mg/dL LDL Cholesterol, Calc 150 H (0-99) mg/dL Angiotensin Convert Enz 101 H (8-52) U/L Assessment and Plan Plan: 1. Intractable migraines, with known history of multiple TIAs, increasing the coronary infarct noted on CT of the brain, underlying vasculitis cannot be ruled out, cannot rule out cryptogenic CVA, MRI of the brain with MRA to be done , and we'll going to consult neurology Dr. Badillo. Vasculitis panel to be done , sleep hygiene reinforced, we are going to obtain for increased regarding the CPAP device that was supposed to be given to him, continue on Plavix, might need consultation with cardiology should the MRI show multiple infarcts. Continue Plavix and statin, antihypertensive agents, obtain echocardiogram 2. Carotid stenosis with 70% plaque formation in the left ICA, Dr. Londono was followed as an outpatient, we'll going to decide whether any surgical intervention would be needed at this time 3. Lumbar disc disease with exacerbation of pain, chronic left hemiparesis, MRI March 2016 showing stable DJD with facet arthropathy and neural foraminal encroachment, and iliac artery aneurysm, risk bulging without disc herniation however there is also anterior mass effect on the pickle sac as previous located L3-L4 L4-L5 L5-S1. Imaging studies from 2016, has combination of hypertrophic facet arthropathy and ligamentum flavum thickening posterior disc herniation C4-C5, mild spinal canal stenosis no myelopathic cord signal abnormality, also has variable neural foraminal stenosis moderate to severe right C6-C7. CAT scan as noted above 4. CAD post-PCI of the LAD. Continue Coreg 25 mg orally twice every day, Plavix 75 mg orally once every day, fish oil. 5. Hypertension and hypertensive cardiovascular disease. Continue losartan 50 mg orally once every day, Coreg 25 mg orally twice every day and clonidine 0.05 mg orally twice every day. 6. Hyperlipidemia. Continue Crestor 40 mg orally once every day. 7 Migraine headache, presenting now with what appears to be a tension headache. Imitrex ordered 1. Patient states Fioricet does not help. 8. Macular degeneration left more than right, follows with retinal specialist 9. Enlarged prostate. Continue Flomax 0.4 g orally once every day. 10. Osteoarthritis post bilateral total knee arthroplasties. continue Mobic. 11. Obstructive sleep apnea, patient is supposed to be on CPAP machine with 9 cm water as previously recommended, compliance reinforced, unknown whether patient is machine or not 12. DVT prophylaxis. Lovenox 40 mg subcutaneously every 24 hours. 13. GI prophylaxis. Omeprazole. 14. Chronic sleep disturbance, melatonin 6 mg at bedtime 15. History of recurrent syncope in the past, none since March 2017, etiology could be possible seizures, on maintenance Keppra 250 mg daily and 500 mg daily at bedtime 16. Impaired gait and. Impaired balance, PT OT and speech, has also short- term memory losses 17. Mild protein calorie malnutrition Discharge plan: Home in the next 24 hours. Impression and plan of care have been directed as dictated by the signing physician. Suly Gallo nurse practitioner acting as scribe for signing physician.
--- NOTE | 2018-07-15 17:03 | P.PN ---
Subjective Progress Note Date: 07/15/18 Patient is a pleasant 82-year-old male who is being followed by the neurology service for TIA. Patient has history of migraines but noticed he had episode of garbled speech along with his migraine and decided to come to [facility] for further evaluation. Patient and state garbled speech lasting approximately half an hour and resolved just prior to arriving at the hospital. Patient does have history of TIA, syncopal episodes, migraine headaches, Parkinson's disease, dysphagia, occipital neuralgia, chronic back pain, hypertension and CAD. CT of the brain was done on admission which showed cerebral atrophy and chronic small vessel ischemia. CT also reveals multiple lacunar infarcts which are more numerous and number that is seen on the last computed tomography scan. Carotid Doppler showed no evidence of hemodynamically significant stenosis. Patient is on statin therapy. Patient is on Plavix 75 mg by mouth daily and aspirin 325 mg by mouth daily. At the time of my evaluation, patient is lying in bed complaining of a headache and has a cold rag on his head. Patient will be getting his MRI of the brain soon. He does not appear to be in any acute distress. Objective - Vital Signs Vital signs: Vital Signs Temp 98.1 F 07/15/18 07:50 Pulse 59 L 07/15/18 07:50 Resp 18 07/15/18 07:50 BP 121/68 07/15/18 07:50 Pulse Ox 96 07/15/18 07:50 Intake & Output 07/14/18 07/15/18 07/15/18 18:59 06:59 18:59 Intake Total 240 10 480 Output Total 475 400 Balance -235 10 80 Weight 88.7 kg Intake: IV 10 .9 10 Oral 240 480 Output: Urine 475 400 Other: # Voids 1 - Exam PHYSICAL EXAM: GENERAL APPEARANCE: Patient is a well-developed, male who appears to be in no acute distress. HEENT: Normocephalic, atraumatic, no facial asymmetry is seen. Neck is supple with no masses felt. CARDIOVASCULAR: Regular rate and rhythm. ABDOMEN: Nontender, nondistended. EXTREMITIES: Show no edema or clubbing. NEUROLOGICAL EXAM: Patient is awake, alert, and oriented 3. Speech and language are normal. Strength is full in all 4 extremities. Sensory exam to light touch is normal in all 4 extremities. No facial asymmetry is seen on cranial nerve testing. No tremors or seizure-like activity noted. - Labs CBC & Chem 7: 07/15/18 06:20 07/15/18 06:20 Labs: Abnormal Lab Results - Last 24 Hours (Table) 07/14/18 07/15/18 07/15/18 Range/Units 15:19 06:20 06:20 WBC 3.2 L (3.8-10.6) k/uL RBC 3.93 L (4.30-5.90) m/uL Hgb 11.8 L (13.0-17.5) gm/dL Hct 36.7 L (39.0-53.0) % ESR 24 H (0-15) mm/hr BUN 21 H (9-20) mg/dL Glucose 109 H (74-99) mg/dL Total Protein 5.8 L (6.3-8.2) g/dL Albumin 3.2 L (3.5-5.0) g/dL Triglycerides 161 H (<150) mg/dL Cholesterol 231 H (<200) mg/dL LDL Cholesterol, Calc 150 H (0-99) mg/dL Angiotensin Convert Enz 101 H (8-52) U/L Assessment and Plan Plan: Impression: 1. TIA 2. Slurred speech, resolved 3. Intractable migraine 4. CAD 5. Chronic back pain 6. History of carotid stenosis 7. Parkinson's disease Recommendation: It does appear patient experienced a transient ischemic attack with a transient episode of slurred speech. Computed tomography scan of the brain showed multiple infarcts which is increased as compared to last CT of the brain. Patient is awaiting an MRI/MRA to be done. Carotid Doppler showed no hemodynamically significant stenosis. I will order an EEG. His fasting lipid panel is elevated and I recommend continuing statin therapy. Serum homocysteine level is pending. As for his headache, I recommend Fioricet with codeine every 8 hours when necessary. Patient states this is what works for him at home. As for his Parkinson's, continue Mirapex. Patient is on Keppra but does not have a seizure disorder. This is likely for mood stabilization. Continue Plavix 75 mg by mouth daily and aspirin 325 mg by mouth daily. Continue neurological checks. I will continue to follow with you. Further recommendations following testing. I performed an examination of the patient and discussed the management with the [employer]. I have reviewed the [employer] notes and agree with the findings and plan of care.
[2018-07-15 17:38] LABS: Hemoglobin A1C 5.7 % (4.0-6.0)
[2018-07-15] MEDS: BUTA/APAP/CAF/COD 50-325-40-30 CAP PO PRN (17:41)
--- NOTE | 2018-07-15 17:45 | MR ---
EXAMINATION TYPE: MR angio head wo con DATE OF EXAM: 07/15/2018 COMPARISON: None HISTORY: cva, migraine, aneurysm TECHNIQUE: Time of flight images focusing on the [place] of [place] were performed without contrast. FINDINGS: There is arterial flow in the anterior middle and posterior cerebral arteries. There is art erial flow in the vertebrobasilar artery system. There is patency of the right posterior communicatin g artery. There is no mass effect. There is no evidence of aneurysm or neovascularity. There is sligh t narrowing of the proximal right anterior cerebral artery. There is patency of the anterior communic ating artery. IMPRESSION: There is mild fusiform stenosis of approximately 50% of the proximal right anterior cerebral artery. There is patency of the anterior communicating artery for compensation.
--- NOTE | 2018-07-15 17:52 | MR ---
EXAMINATION TYPE: MR brain wo/w con DATE OF EXAM: 07/15/2018 COMPARISON: 03/25/2017 HISTORY: cva, migraine, aneurysm TECHNIQUE: Multiplanar, multisequence images of the brain and brainstem is performed without and with IV contras t, utilizing 9.5 mL intravenous Gadavist . FINDINGS: There is cerebral cortical atrophy. There is no mass effect nor midline shift. There is no sign of in tracranial hemorrhage. There is diffuse increased signal in the periventricular white matter. There i s thinning of the corpus callosum. The cerebellum appears intact. There is 1.5 x 1 cm area of increas ed signal within the central gabino on the T2 and FLAIR images. The sella turcica appears normal. There is normal contrast opacification of the venous sinuses. I see no pathologic enhancement. I see no co rtical infarct. There is minimal maxillary and ethmoid sinusitis noted. IMPRESSION: Extensive white matter changes consistent with chronic small vessel ischemia and multiple lacunar infarcts.. There is also involvement of the gabino. Cerebral atrophy. No acute intracranial ab normality. No change compared to old exam.
[2018-07-15] MEDS: FAMOTIDINE 20 MG TAB PO SCH ×2 (20:37→20:41)
[2018-07-15] MEDS: ASPIRIN 325 MG TAB PO SCH (20:37)
[2018-07-15] MEDS: MONTELUKAST 10 MG TAB PO SCH (20:37)
[2018-07-15] MEDS: CLOPIDOGREL 75 MG TAB PO SCH (20:38)
[2018-07-15] MEDS: NIACIN TR 500 MG CAPSULE.ER PO SCH (20:38)
[2018-07-15] MEDS: FERROUS SULFATE 325 MG TAB PO SCH (20:38)
[2018-07-15] MEDS: CHOLECALCIFEROL 1,000 UNIT TAB PO SCH (20:38)
[2018-07-15] MEDS: PRAMIPEXOLE 1 MG TAB PO SCH ×2 (20:39→20:41)
[2018-07-15] MEDS: MELOXICAM 7.5 MG TAB PO SCH (20:39)
[2018-07-15] MEDS: levETIRAcetam 500 MG TAB PO SCH (20:39)
[2018-07-15] MEDS: LOSARTAN 50 MG TAB PO SCH (20:44)
[2018-07-15] MEDS: DICLOFENAC SODIUM GEL 100 GM TUBE TOPICAL SCH (20:50)
[2018-07-15] MEDS: LATANOPROST 0.005% OPHTH DROPS 2.5 ML BTL BOTH EYES SCH (20:50)
[2018-07-16] MEDS: amLODIPine 5 MG TAB PO SCH ×2 (00:51→08:39)
[2018-07-16] MEDS: ATORVASTATIN 40 MG TAB PO SCH ×2 (00:51→08:39)
[2018-07-16] MEDS: cloNIDine HCL 0.1 MG TAB PO SCH ×3 (00:52→08:40)
[2018-07-16] MEDS: levETIRAcetam 250 MG TAB PO SCH ×2 (00:52→08:39)
[2018-07-16] MEDS: HYDROCHLOROTHIAZIDE 25 MG TAB PO SCH ×2 (00:52→08:39)
[2018-07-16] MEDS: DICLOFENAC SODIUM GEL 100 GM TUBE TOPICAL SCH ×3 (00:53→08:42)
[2018-07-16] MEDS: DOCUSATE 100 MG CAP PO SCH ×3 (00:53→08:39)
[2018-07-16] MEDS: SODIUM CHLORIDE 0.9% 1,000 ML IV SCH ×2 (00:54→05:52)
[2018-07-16 05:51] VITALS: TEMP 98.1
[2018-07-16 06:09] LABS: Basophils % (A) 1 %; Eosinophils # (A) 0.1 k/uL (0-0.7); Eosinophils % (A) 4 %; HCT 37.7 % (39.0-53.0); HGB 12.3 gm/dL (13.0-17.5); Lymphocytes # (A) 1.1 k/uL (1.0-4.8); Lymphocytes % (A) 32 %; MCH 30.5 pg (25.0-35.0); MCHC 32.8 g/dL (31.0-37.0); MCV 93.1 fL (80.0-100.0); Monocytes # (A) 0.3 k/uL (0-1.0); Monocytes % (A) 9 %; Neutrophils # (A) 1.7 k/uL (1.3-7.7); Neutrophils % (A) 52 %; Platelet Count 193 k/uL (150-450); RBC 4.05 m/uL (4.30-5.90); RDW 12.8 % (11.5-15.5); WBC 3.3 k/uL (3.8-10.6)
[2018-07-16 06:19] LABS: ALT 25 U/L (21-72); AST 22 U/L (17-59); Albumin 3.6 g/dL (3.5-5.0); Alkaline Phosphatase 86 U/L (38-126); Anion Gap 6 mmol/L; Blood Urea Nitrogen 22 mg/dL (9-20); Calcium 9.4 mg/dL (8.4-10.2); Carbon Dioxide 28 mmol/L (22-30); Chloride 103 mmol/L (98-107); Glucose 118 mg/dL (74-99); Sodium 137 mmol/L (137-145); Total Bilirubin 0.6 mg/dL (0.2-1.3); Total Protein 6.2 g/dL (6.3-8.2)
[2018-07-16] MEDS: FERROUS SULFATE 325 MG TAB PO SCH (08:39)
[2018-07-16] MEDS: NIACIN TR 500 MG CAPSULE.ER PO SCH (08:39)
[2018-07-16] MEDS: LOSARTAN 50 MG TAB PO SCH (08:39)
[2018-07-16] MEDS: MELOXICAM 7.5 MG TAB PO SCH (08:39)
[2018-07-16] MEDS: ASPIRIN 325 MG TAB PO SCH (08:39)
[2018-07-16] MEDS: PRAMIPEXOLE 1 MG TAB PO SCH (08:39)
[2018-07-16] MEDS: CLOPIDOGREL 75 MG TAB PO SCH (08:40)
[2018-07-16] MEDS: FAMOTIDINE 20 MG TAB PO SCH (08:40)
[2018-07-16 09:17] VITALS: BP 136/81; PULSE 70
[2018-07-16] MEDS: BUTA/APAP/CAF/COD 50-325-40-30 CAP PO PRN (09:31)
--- NOTE | 2018-07-16 11:50 | P.DS ---
Providers Date of admission: 07/14/18 06:05 Expected date of discharge: 07/16/18 Attending physician: Sharri Nguyen Consults: 07/14/18 06:06 Consult Physician Routine Consulting Provider: Fely Badillo Consult Reason/Comments: TIA Do you want consulting provider notified?: Yes Primary care physician: [facility] Hospital Course: This is a 82-year-old male patient of Dr. 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 He does have some weakness on the left lower extremity side which is chronic Patient is also complaining of a headache from his neck and goes across the front of his head is chronic insomnia , and has chronic migraines. Patient's headache stays between 6-7 constantly, with blurred vision for the past 3 weeks, known macular degeneration. Also has periorbital pain, no sinus congestion no cough, no fever. He mentions that he has slurred speech or more garbled speech for the past 3-4 months, also worsening back pain, has chronic neuropathy of lower extremities, has chronic restless leg, Patient does state that he does not sleep well and he wakes up frequently during the night and is tired all day. He has not had a sleep study done. He denies any new weaknesses and no change in his speech. Patient had a hospitalization in September of this year and was found to have a 70% stenosis of the left internal carotid artery and was to follow-up with Dr. Londono. He denies any mentioned twitching or seizure activity. He does not have a seizure history. He states his balance but has restless leg and chronic neuropathy is not good but there is no change in this. His last admission was in March 2017 for syncope, has 70% carotid stenoses internal carotid artery, follows with Dr. Londono CAT scan of the brain showed cerebral atrophy and chronic small vessel ischemic change. Chest x-ray showed no acute cardiopulmonary disease. January 2017, CTA neck shows 70% stenosis proximal R ica. Sleep study performed 2016 for which CPAP was recommended at 9 cm water, AHI was 26 question compliance to meds In the emergency room, he had CTA of the head was unremarkable multiple lacunar infarcts, chronic small vessel ischemia more numerous than last CT in January 2018. Atherosclerotic plaque in both carotid bifurcations without hemodynamically significant stenosis moderate atherosclerotic change with plaque without significant flow limiting stenosis. Patient was admitted, and our first evaluation was in the emergency room, speech is normal has chronic short term memory loss, Consult with Dr. Badillo added and EEG ordered, MRI of the brain with MRA 07/15: Patient has been seen by neurology for TIA. MRI MRA of the brain is to be done this afternoon. Carotid ultrasound shows no hemodynamically significant stenosis. EEG is pending. Fioricet was added for headache neurology recommended continuing Plavix and full-strength aspirin. Vital signs have been stable, pulse ox 96% on room air. Triglycerides 161, cholesterol 231 , LDL 150 and HDL 49. Angiotensin-converting enzyme was 101. Troponins been negative on 3 draws. TSH was 2.220. 07/16: MR angiogram of the head showed mild fusiform stenosis of approximately 50% of the proximal right anterior cerebral artery. There is patency of the anterior communicator artery for compensation. MRI of the brain shows extensive white matter changes consistent with chronic small vessel ischemia and multiple lacunar infarcts. There is also involvement of the gabino. Cerebral atrophy. No acute intracranial abnormality. No change compared to old exam. Patient denies having any new symptoms. We are planning to continue the full strength aspirin and increase Crestor to 40 mg. Voltaren gel also ordered for home. Patient will be discharged home today in stable condition. Discharge Diagnoses: 1. TIA 2. Intractable migraines 2. Carotid stenosis with 70% plaque formation in the left ICA, Dr. Londono was followed as an outpatient 3. Lumbar disc disease with exacerbation of pain, chronic left hemiparesis 4. CAD post-PCI of the LAD. 5. Hypertension and hypertensive cardiovascular disease. 6. Hyperlipidemia. 7 Migraine headache 8. Macular degeneration left more than right, follows with retinal specialist 9. Enlarged prostate. 10. Osteoarthritis post bilateral total knee arthroplasties. 11. Obstructive sleep apnea, patient is supposed to be on CPAP machine with 9 cm water as previously recommended, compliance reinforced 12. Chronic sleep disturbance, 15. History of recurrent syncope in the past, none since March 2017, etiology could be possible seizures, on maintenance Keppra 16. Impaired gait and balance 17. Mild protein calorie malnutrition 18. Parkinson's disease Discharge plan: Home Impression and plan of care have been directed as dictated by the signing physician. Suly Gallo nurse practitioner acting as scribe for signing physician. Patient Condition at Discharge: Good Plan - Discharge Summary Discharge Rx Participant: No New Discharge Prescriptions: New Aspirin 325 mg PO DAILY tab Diclofenac Sodium Gel [Voltaren Gel] 2 gm TOPICAL QID #1 tube Melatonin 5 mg PO HS #30 tablet Rosuvastatin Calcium [Crestor] 40 mg PO HS #30 tab Continue cloNIDine HCL [Catapres] 0.05 mg PO BID Famotidine [Pepcid] 20 mg PO HS Montelukast [Singulair] 10 mg PO HS Meloxicam [Mobic] 7.5 mg PO DAILY Latanoprost [Xalatan 0.005%] 1 drop BOTH EYES HS Cholecalciferol [Vitamin D3] 1,000 unit PO HS Clopidogrel [Plavix] 75 mg PO DAILY Ubidecarenone [Co Q-10] 200 mg PO DAILY Pramipexole [Mirapex] 1 mg PO BID amLODIPine [Norvasc] 5 mg PO DAILY #30 tab levETIRAcetam [Keppra] 500 mg PO HS levETIRAcetam [Keppra] 250 mg PO DAILY Hydrochlorothiazide 25 mg PO DAILY Butalb/Acetaminophen/Caffeine [Fioricet 50-325-40] 1 - 2 each PO Q6H PRN MDD 6 TABS PRN Reason: Headache Ferrous Sulfate [Iron (65 MG Elemental)] 325 mg PO DAILY Losartan Potassium 100 mg PO DAILY [place] 3-Krill Oil 1 cap PO DAILY Niacin 500 mg PO DAILY Discontinued Aspirin EC [Ecotrin Low Dose] 81 mg PO DAILY Rosuvastatin [Crestor] 20 mg PO DAILY Discharge Medication List cloNIDine HCL [Catapres] 0.05 mg PO BID 05/21/14 [History] Famotidine [Pepcid] 20 mg PO HS 07/24/15 [History] Montelukast [Singulair] 10 mg PO HS 09/19/15 [History] Latanoprost [Xalatan 0.005%] 1 drop BOTH EYES HS 08/20/16 [History] Meloxicam [Mobic] 7.5 mg PO DAILY 08/20/16 [History] Cholecalciferol [Vitamin D3] 1,000 unit PO HS 03/05/17 [History] Clopidogrel [Plavix] 75 mg PO DAILY 03/05/17 [History] Ubidecarenone [Co Q-10] 200 mg PO DAILY 03/05/17 [History] Pramipexole [Mirapex] 1 mg PO BID 03/23/17 [History] amLODIPine [Norvasc] 5 mg PO DAILY #30 tab 03/27/17 [Rx] Hydrochlorothiazide 25 mg PO DAILY 02/07/18 [History] levETIRAcetam [Keppra] 250 mg PO DAILY 02/07/18 [History] levETIRAcetam [Keppra] 500 mg PO HS 02/07/18 [History] Butalb/Acetaminophen/Caffeine [Fioricet 50-325-40] 1 - 2 each PO Q6H PRN MDD 6 TABS 07/14/18 [History] Ferrous Sulfate [Iron (65 MG Elemental)] 325 mg PO DAILY 07/14/18 [History] Losartan Potassium 100 mg PO DAILY 07/14/18 [History] [place] 3-Krill Oil 1 cap PO DAILY 07/14/18 [History] Niacin 500 mg PO DAILY 07/14/18 [History] Aspirin 325 mg PO DAILY tab 07/16/18 [Rx] Diclofenac Sodium Gel [Voltaren Gel] 2 gm TOPICAL QID #1 tube 07/16/18 [Rx] Melatonin 5 mg PO HS #30 tablet 07/16/18 [Rx] Rosuvastatin Calcium [Crestor] 40 mg PO HS #30 tab 07/16/18 [Rx] Follow up Appointment(s)/Referral(s): Louis Lawson MD [Primary Care Provider] - 07/25/18 10:30 am (With Jessie.) Olman Byrd DO [STAFF PHYSICIAN] - 1 Week (Office closed. Please call and make appointment) Jose Londono MD [STAFF PHYSICIAN] - 2 Weeks (carotid monitoring, please call and make follow up appointment) Patient Instructions/Handouts: Transient Ischemic Attack (DC), Migraine Headache (ED) Activity/Diet/Wound Care/Special Instructions: CPAP compliance at home. Schedule OP EEG, Dr. Byrd to read Discharge Disposition: HOME SELF-CARE
--- NOTE | 2018-07-19 09:34 | ECHOF ---
Referral Reason:Thrombus MEASUREMENTS -------- HEIGHT: 165.1 cm WEIGHT: 94.8 kg BP: IVSd: 1.3 cm (0.6 - 1.1) LVIDd: 4.8 cm (3.9 - 5.3) LVPWd: 1.3 cm (0.6 - 1.1) IVSs: 1.6 cm LVIDs: 4.0 cm LVPWs: 1.3 cm LA Diam: 3.8 cm (2.7 - 3.8) RVIDd: 3.4 cm (< 3.3) LAESV Index (A-L): 37.15 ml/m Ao Diam: 3.6 cm (2.0 - 3.7) LA Diam: 4.7 cm (2.7 - 3.8) AV Cusp: 1.3 cm (1.5 - 2.6) EPSS: 0.6 cm MV E Shant: 0.27 m/s MV DecT: 259 ms MV A Shant: 0.92 m/s MV E/A Ratio: 0.29 AV maxP.45 mmHg AV meanP.86 mmHg RAP: 5.00 mmHg RVSP: 27.14 mmHg MV EF SLOPE: 80.83 mm/s (70 - 150) MV EXCURSION: 1.40 cm (> 18.000) FINDINGS -------- Sinus rhythm. This was a technically adequate study. The left ventricular size is normal. There is mild concentric left ventricular hypertrophy. Overa ll left ventricular systolic function is low-normal with, an EF between 50 - 55 %. The right ventricle is normal in size. The left atrial size is normal. LA is moderately dilated 34-39 ml/m2 The right atrial size is normal. There is moderate aortic valve sclerosis. There is mild aortic stenosis present. Peak/mean gradie nt across the Aortic Valve is 18.45mmHg / 9.86mmHg. Mild mitral annular calcification present. No mitral regurgitation. Mild tricuspid regurgitation present. There is mild pulmonary hypertension. The right ventricular systolic pressure, as measured by Doppler, is 27.14mmHg. There is no pulmonic regurgitation present. The aortic root size is normal. There is no pericardial effusion. CONCLUSIONS -------- 1. The left ventricular size is normal. 2. There is mild concentric left ventricular hypertrophy. 3. Overall left ventricular systolic function is low-normal with, an EF between 50 - 55 %. 4. The right ventricle is normal in size. 5. The left atrial size is normal. 6. LA is moderately dilated 34-39 ml/m2 7. The right atrial size is normal. 8. There is moderate aortic valve sclerosis. 9. There is mild aortic stenosis present. 10. Peak/mean gradient across the Aortic Valve is 18.45mmHg / 9.86mmHg. 11. Mild mitral annular calcification present. 12. No mitral regurgitation. 13. Mild tricuspid regurgitation present. 14. There is mild pulmonary hypertension. 15. The right ventricular systolic pressure, as measured by Doppler, is 27.14mmHg. 16. There is no pulmonic regurgitation present. 17. The aortic root size is normal. 18. There is no pericardial effusion. POSTAL WORKER: Dian Brooks RDCS
--- NOTE | 2018-07-28 13:55 | CDI ---
Documentation Clarification Form Date: 07/28/18 From: Jody Ruano Phone: If questions, call Jes Rosales @ Admit Date: 07/14/2018 6:05:00 AM Patient Name: Olman Rivera Visit Number: [id number] Discharge Date:07/16/18 ATTENTION: The Clinical Documentation Specialists (CDI) and [facility] Coding Staff appreciate your assistance in clarifying documentation. Please respond to the clarification below the line at the bottom and electronically sign. The CDI & [facility] Coding staff will review the response and follow-up if needed. Please note: Queries are made part of the Legal Health Record. If you have any questions, please contact the author of this message via ITS. Sharri Pham MD Possible TIA is documented as a final diagnosis. Patient history/risk factors: intractable migraines, patient followed as outpatient for left internal carotid stenosis 70% Imaging: Carotid ultrasound shows no hemodynamically significant stenosis. MR angiogram of the head showed mild fusiform stenosis of approximately 50% of the proximal right anterior cerebral artery.There is patency of the anterior communicator artery for compensation.MRI of the brain shows extensive white matter changes consistent with chronic small vessel ischemia and multiple lacunar infarcts In your professional opinion, please specify underlying etiology of the transient ischemic attack: Carotid Sinus Syncope Carotid Stenosis Hemorrhagic Stroke (if know specify specific location) Ischemic Stroke (if know specify cause, specific vessel/location, and laterality ): Sequelae of Cerebrovascular Disease (specify Type of Cerebrovascular Disease) Vertebo-Basilar Artery Syndrome Other (please specify): Etiology unknown or Unable to determine MTDD
--- NOTE | 2018-08-08 17:12 | CDI ---
Documentation Clarification Form Date: 07/28/2018 1:56:00 PM From: Jody Ruano-Paleobotanist Phone: If Question, call Jes Rosales [employer] at [phone] Admit Date: 07/14/2018 6:05:00 AM Patient Name: Olman Rivera Visit Number: [id number] Discharge Date: 07/16/18 ATTENTION: The Clinical Documentation Specialists (CDI) and [facility] Coding Staff appreciate your assistance in clarifying documentation. Please respond to the clarification below the line at the bottom and electronically sign. The CDI & [facility] Coding staff will review the response and follow-up if needed. Please note: Queries are made part of the Legal Health Record. If you have any questions, please contact the author of this message via ITS. Sharri Dixon MD Possible TIA is documented as a final diagnosis. Patient history/risk factors: intractable migraines, patient followed as outpatient for left internal carotid stenosis 70% Imaging: Carotid ultrasound shows no hemodynamically significant stenosis. MR angiogram of the head showed mild fusiform stenosis of approximately 50% of the proximal right anterior cerebral artery.There is patency of the anterior communicator artery for compensation.MRI of the brain shows extensive white matter changes consistent with chronic small vessel ischemia and multiple lacunar infarcts In your professional opinion, please specify underlying etiology of the transient ischemic attack: Carotid Sinus Syncope Carotid Stenosis Hemorrhagic Stroke (if know specify specific location) Ischemic Stroke (if know specify cause, specific vessel/location, and laterality ):seque Sequelae of Cerebrovascular Disease (specify Type of Cerebrovascular Disease) Vertebro-Basilar Artery Syndrome Other (please specify): OR Etiology unknown or Unable to determine sequelae of cerebrovascular disease. carotid stenosis headache not related to CVA MTDD
--- NOTE | 2018-08-30 13:16 | CDI ---
Documentation Clarification Form Date: 08/30/18 From: Jody Ruano Phone: If questions, call Jes Rosales @ Admit Date: 07/14/2018 6:05:00 AM Patient Name: Olman Rivera Visit Number: [id number] Discharge Date: 07/16/2018 10:00:00 AM ATTENTION: The Clinical Documentation Specialists (CDI) and [facility] Coding Staff appreciate your assistance in clarifying documentation. Please respond to the clarification below the line at the bottom and electronically sign. The CDI & [facility] Coding staff will review the response and follow-up if needed. Please note: Queries are made part of the Legal Health Record. If you have any questions, please contact the author of this message via ITS. Dr. Sharri Nguyen Patient history/risk factors: intractable migraines, patient followed as outpatient for left internal carotid stenosis 70% Imaging: Carotid ultrasound shows no hemodynamically significant stenosis. MR angiogram of the head showed mild fusiform stenosis of approximately 50% of the proximal right anterior cerebral artery.There is patency of the anterior communicator artery for compensation.MRI of the brain shows extensive white matter changes consistent with chronic small vessel ischemia and multiple lacunar infarcts Recent query response by you stated sequela of cerebrovascular disease and carotid stenosis as possible etiologies of the patient's TIA. Please clarify if the likely or possible etiology of the TIA was: Cerebrovascular disease -please specify further as: __xxx_small vessel ischemia ___other cerebrovascular disease TIA ruled out-aphasia only as sequela of cerebrovascular disease carotid stenosis -xxxx other unable to determine MTDD
== END 2018-07-16 10:00 | disposition home or self-care (01) | DRG 68 ==
LOC: EC 01:26 → 3SCARD 06:05
PROVIDERS: ADMIT Family Medicine; ATTEND Family Medicine
DX: I65.29 Occlusion and stenosis of unspecified carotid artery (principal); G81.94 Hemiplegia, unspecified affecting left nondominant side; E44.1 Mild protein-calorie malnutrition; G45.9 Transient cerebral ischemic attack, unspecified; G43.919 Migraine, unspecified, intractable, without status migrainosus; M47.815 Spondylosis without myelopathy or radiculopathy, thoracolumbar region; I25.10 Atherosclerotic heart disease of native coronary artery without angina pectoris; I11.9 Hypertensive heart disease without heart failure; E78.5 Hyperlipidemia, unspecified; H35.30 Unspecified macular degeneration; N40.0 Benign prostatic hyperplasia without lower urinary tract symptoms; Z96.653 Presence of artificial knee joint, bilateral; G47.33 Obstructive sleep apnea (adult) (pediatric); R26.9 Unspecified abnormalities of gait and mobility; G20 Parkinson's disease; Z91.19 Patient's noncompliance with other medical treatment and regimen; M54.81 Occipital neuralgia; F51.04 Psychophysiologic insomnia; H53.8 Other visual disturbances; G62.9 Polyneuropathy, unspecified; G25.81 Restless legs syndrome; R41.3 Other amnesia; K21.9 Gastro-esophageal reflux disease without esophagitis; Z96.1 Presence of intraocular lens; I69.392 Facial weakness following cerebral infarction; Z80.8 Family history of malignant neoplasm of other organs or systems; Z85.46 Personal history of malignant neoplasm of prostate; Z92.3 Personal history of irradiation; Z87.440 Personal history of urinary (tract) infections; I73.9 Peripheral vascular disease, unspecified; H40.9 Unspecified glaucoma; Z83.3 Family history of diabetes mellitus; Z82.3 Family history of stroke; Z82.49 Family history of ischemic heart disease and other diseases of the circulatory system; Z82.0 Family history of epilepsy and other diseases of the nervous system; Z79.02 Long term (current) use of antithrombotics/antiplatelets; Z79.899 Other long term (current) drug therapy; Z79.1 Long term (current) use of non-steroidal anti-inflammatories (NSAID); Z79.82 Long term (current) use of aspirin; Z88.5 Allergy status to narcotic agent; Z88.8 Allergy status to other drugs, medicaments and biological substances; G89.29 Other chronic pain; M50.221 Other cervical disc displacement at C4-C5 level; M48.02 Spinal stenosis, cervical region; Z68.32 Body mass index [BMI] 32.0-32.9, adult; M47.814 Spondylosis without myelopathy or radiculopathy, thoracic region
CPT/HCPCS: 36415; 70450; 70544; 70553; 80053; 80061; 82164; 82550; 82553; 83036; 84443; 84484; 85025; 85610; 85652; 85730; 86038; 86140; 86780; 93005; 93306; 93880; 96374; 96375; 96376; 99285

== ENCOUNTER → 2018-07-28 | Outpatient (CLI) | payer MEDICARE ==
--- NOTE | 2018-07-28 16:53 | PN ---
PROGRESS NOTE DATE OF SERVICE: 07/28/2018 This patient is an 82-year-old gentleman who has been [facility] for treatment of obstructive sleep apnea-hypopnea syndrome. Patient continues to use his CPAP equipment but recently developed some problem related to his nasal pillow mask, some irritation in his nose. I checked his CPAP unit. Pressure is 10 cm of water. With this pressure, apnea-hypopnea index is only 0.4, which is absolutely perfect. Leak is 14 L/minute, which is acceptable. [place] Sleepiness Scale today is increased at 15. MEDICATIONS: 1. Aspirin. 2. Clopidogrel. 3. Losartan. 4. Hydrochlorothiazide. 5. Carvedilol. 6. Clonidine. 7. Levetiracetam. 8. Amlodipine. 9. Famotidine. 10.Montelukast. 11.Meloxicam. 12.Omeprazole. 13.Pramipexole. 14.Niacin. 15.Rosuvastatin. 16.Melatonin. PHYSICAL EXAMINATION: GENERAL: A pleasant patient in no distress. VITAL SIGNS: BP 131/69, HR 66, RR 16, height 5 feet 5 inches, weight 205, body mass index 34.1. Patient has lost 3 pounds since his previous visit. HEENT: PERRLA, EOMI. Evaluation of oropharynx showed tongue protrudes midline. Low position of soft palate. NECK: Supple. No JVD. Thyroid is not palpable. LUNGS: Clear to percussion and to auscultation. Good air exchange. No wheezing or rhonchi. HEART: S1, S2 regular. No murmurs, gallops or rubs. ABDOMEN: Soft and nontender. Bowel sounds are present. No organomegaly. EXTREMITIES: No clubbing or cyanosis. MATHEMATICAL PHYSICIST: Difficulties walking secondary to some balance problems. IMPRESSION: 1. Obstructive sleep apnea-hypopnea syndrome in moderate range. Apnea-hypopnea index by results of previous sleep study 26.8, respiration controlled with CPAP at the pressure of 9 cm of water. Patient is benefitting from CPAP treatment. 2. Hypertension. 3. History of Parkinson disease. 4. Coronary artery disease, status post stent insertion. 5. Allergies. 6. History of restless legs. 7. History of migraines. 8. Status post bilateral knee replacement. 9. Status post back surgery. PLAN: 1. We fitted the patient with a new type of full-face mask, DreamWear medium size. The patient likes it and I will write a prescription for that mask. 2. Prescription for all necessary CPAP supplies. 3. The patient will continue to use CPAP equipment every night for the whole night. 4. Watching and losing weight. 5. No driving if feeling any sleepiness. Thank you very much for allowing me to participate in the management of your patient. Sincerely, Doug Diggs MD, PhD, FAASM Diplomat of [place] [employer] [place] [employer] Manager Product of [facility] [place] MMODL / IJN: [id number] /
== END | disposition home or self-care (01) ==
LOC: SLEEP 15:06
PROVIDERS: ATTEND Internal Medicine
DX: G47.33 Obstructive sleep apnea (adult) (pediatric) (principal); I10 Essential (primary) hypertension; G20 Parkinson's disease; I25.10 Atherosclerotic heart disease of native coronary artery without angina pectoris; G43.909 Migraine, unspecified, not intractable, without status migrainosus; G25.81 Restless legs syndrome; Z79.82 Long term (current) use of aspirin; Z79.02 Long term (current) use of antithrombotics/antiplatelets; Z79.899 Other long term (current) drug therapy; Z99.89 Dependence on other enabling machines and devices; Z95.5 Presence of coronary angioplasty implant and graft; Z91.09 Other allergy status, other than to drugs and biological substances; Z96.653 Presence of artificial knee joint, bilateral; Z98.890 Other specified postprocedural states

== ENCOUNTER 2018-08-23 21:33 | Emergency (ER) | payer MEDICARE ==
[2018-08-23 21:43] VITALS: PULSE 63
[2018-08-23] MEDS ORDERED: SODIUM CHLORIDE 0.9% 1,000 ML IV STA (21:48)
--- NOTE | 2018-08-23 22:00 | ED ---
Syncope HPI - General Chief Complaint: Syncope Stated Complaint: SYNCOPE Time Seen by Provider: 08/23/18 21:46 Source: patient, EMS, RN notes reviewed, old records reviewed Mode of arrival: EMS Limitations: physical limitation - History of Present Illness Initial Comments: This is an 82-year-old male to the ER for evaluation, he presents for syncopal event, episode of unresponsiveness that occurred at dinner, patient is multiple hospitalizations in ER visits for similar complaint, which is no significant cause found headaches his blood pressure goes low. Patient has headache which is consistent headache, and headache is unproven from summary is significant evaluation of prior headache including MRI/MRA. Patient currently denies symptoms of syncope, patient denies chest pain or bowel pain. No nausea vomiting or diarrhea. Taking all medications as prescribed MD Complaint: loss of consciousness -: hour(s) (1) Prodromal Symptoms: none, headache Description of Event: other (None) -: second(s) Witnessed: yes - by bystander Injuries Sustained Associated with Event: None Current Symptoms: none History: previous syncopal episode Context: at rest Treatments Prior to Arrival: none - Related Data Home Medications Medication Instructions Recorded Confirmed cloNIDine HCL [Catapres] 0.05 mg PO BID 05/21/14 08/23/18 Famotidine [Pepcid] 20 mg PO HS 07/24/15 08/23/18 Montelukast [Singulair] 10 mg PO HS 09/19/15 08/23/18 Latanoprost [Xalatan 0.005%] 1 drop BOTH EYES HS 08/20/16 08/23/18 Meloxicam [Mobic] 7.5 mg PO HS 08/20/16 08/23/18 Cholecalciferol [Vitamin D3] 1,000 unit PO HS 03/05/17 08/23/18 Clopidogrel [Plavix] 75 mg PO DAILY 03/05/17 08/23/18 Pramipexole [Mirapex] 1 mg PO BID 03/23/17 08/23/18 Hydrochlorothiazide 25 mg PO DAILY 02/07/18 08/23/18 levETIRAcetam [Keppra] 250 mg PO DAILY 02/07/18 08/23/18 levETIRAcetam [Keppra] 500 mg PO HS 02/07/18 08/23/18 Butalb/Acetaminophen/Caffeine 1 - 2 tab PO Q6H PRN MDD 6 TABS 07/14/18 08/23/18 [Fioricet 50-325-40] Ferrous Sulfate [Iron (65 MG 325 mg PO DAILY 07/14/18 08/23/18 Elemental)] Losartan Potassium 50 mg PO DAILY 07/14/18 08/23/18 [place] 3-Krill Oil 1 cap PO BID 07/14/18 08/23/18 Niacin 500 mg PO HS 07/14/18 08/23/18 Brimonidine Tartrate/Timolol 1 drop LEFT EYE BID 08/23/18 08/23/18 [Combigan 0.2%-0.5% Eye Drops] Carvedilol 25 mg PO BID 08/23/18 08/23/18 Omeprazole 40 mg PO HS 08/23/18 08/23/18 amLODIPine [Norvasc] 5 mg PO HS 08/23/18 08/23/18 Previous Rx's Medication Instructions Recorded Aspirin 325 mg PO DAILY tab 07/16/18 Melatonin 5 mg PO HS #30 tablet 07/16/18 Rosuvastatin Calcium [Crestor] 40 mg PO HS #30 tab 07/16/18 Allergies Allergy/AdvReac Type Severity Reaction Status Date / Time metoclopramide [From Reglan] AdvReac SHAKES Verified 08/23/18 22:15 oxycodone HCl AdvReac Nausea & Verified 08/23/18 22:15 [From OxyContin] Vomiting Review of Systems ROS Statement: Those systems with pertinent positive or pertinent negative responses have been documented in the HPI. ROS Other: All systems not noted in ROS Statement are negative. 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, multiple TIAs, parkinson's disease, neuralgia, neuropathy bilateral hands , legs and feet, thoracic spondylosis, prostrate cancer with surgery/chemo and radiation, UTIs, kidney stones, L eye glaucoma, PVD/bilateral lower extremity edema, caratid stenosis, aemia, bronchitis, lower GI bleed, ANDREA with CPap History of Any Multi-Drug Resistant Organisms: None Reported Past Surgical History: Adenoidectomy, Back Surgery, Heart Catheterization With Stent, Hernia Repair, Joint Replacement, Orthopedic Surgery, Prostate Surgery, Tonsillectomy Additional Past Surgical History / Comment(s): PCI with stent in 2013, prostate biopsies, laser vaporization of prostrate, bilateral inquinal hernia repairs, EGD/colonoscopy, supraorbital percutaneous nerve stimulator trial, epidural injections, low back surgery, R foot hammer toe surgery, bilateral total knee replacements, bilateral cataract removals/lens implants, hemorrhoidectomy, R side of head vein biopsy Past Anesthesia/Blood Transfusion Reactions: No Reported Reaction Additional Past Anesthesia/Blood Transfusion Reaction / Comment(s): Pt has received blood in past without reaction. Date of Last Stent Placement:: 2012 Past Psychological History: No Psychological Hx Reported Smoking Status: Never smoker Past Alcohol Use History: None Reported Past Drug Use History: None Reported - Past Family History Brother(s) Additional Family Medical History / Comment(s): Patient has 3 brothers with no major medical problems. Sister(s) Additional Family Medical History / Comment(s): Patient has 3 sisters that are all alive. 2 have high blood pressure. One has diabetes and stroke and is 81 years old. And all have history of tremors. Son(s) Additional Family Medical History / Comment(s): Patient has 3 sons and one daughter with no major medical problems. Father Family Medical History: Myocardial Infarction ([place]) Additional Family Medical History / Comment(s): Father at age 73 with history of Parkinson's disease, bowel cancer, bone cancer. Mother Family Medical History: Myocardial Infarction ([place]) Additional Family Medical History / Comment(s): Mother at age 85 with history of hypertension and dementia. General Exam Limitations: physical limitation General appearance: alert, in no apparent distress Head exam: Present: atraumatic, normocephalic, normal inspection Eye exam: Present: normal appearance, PERRL, EOMI. Absent: scleral icterus, conjunctival injection, periorbital swelling ENT exam: Present: normal exam, mucous membranes moist Neck exam: Present: normal inspection. Absent: tenderness, meningismus, lymphadenopathy Respiratory exam: Present: normal lung sounds bilaterally. Absent: respiratory distress, wheezes, rales, rhonchi, stridor Cardiovascular Exam: Present: regular rate, normal rhythm, normal heart sounds. Absent: systolic murmur, diastolic murmur, rubs, gallop, clicks GI/Abdominal exam: Present: soft, normal bowel sounds. Absent: distended, tenderness, guarding, rebound, rigid Extremities exam: Present: normal inspection, full ROM, normal capillary refill. Absent: tenderness, pedal edema, joint swelling, calf tenderness Back exam: Present: normal inspection Neurological exam: Present: alert, oriented X3, CN II-XII intact Psychiatric exam: Present: normal affect, normal mood Skin exam: Present: warm, dry, intact, normal color. Absent: rash Course Vital Signs 08/23/18 21:35 Temperature 97.6 F Pulse Rate 63 Respiratory 18 Rate Blood Pressure 115/74 O2 Sat by Pulse 96 Oximetry - Reevaluation(s) Reevaluation #1: 08/23/18 22:30 Medical record is reviewed Reevaluation #2: 08/23/18 22:30 Patient with no recurrent syncopal event here in the ER EKG Findings - EKG Comments: EKG Findings:: EKG shows sinus rhythm rate of 65, ND 180, QRS 80, QTC 460 Medical Decision Making - Medical Decision Making 82 male the ER with recurrent syncope. Patient vital signs normal and stable throughout ER stay labwork normal EKG negative, will be discharged home - Lab Data Result diagrams: 08/23/18 21:40 08/23/18 21:40 Lab Results 08/23/18 08/23/18 08/23/18 Range/Units 21:40 21:40 21:40 WBC 4.7 (3.8-10.6) k/uL RBC 3.41 L (4.30-5.90) m/uL Hgb 10.8 L (13.0-17.5) gm/dL Hct 31.7 L (39.0-53.0) % MCV 93.1 (80.0-100.0) fL MCH 31.8 (25.0-35.0) pg MCHC 34.2 (31.0-37.0) g/dL RDW 13.6 (11.5-15.5) % Plt Count 213 (150-450) k/uL Neutrophils % 67 % Lymphocytes % 20 % Monocytes % 7 % Eosinophils % 3 % Basophils % 1 % Neutrophils # 3.1 (1.3-7.7) k/uL Lymphocytes # 0.9 L (1.0-4.8) k/uL Monocytes # 0.3 (0-1.0) k/uL Eosinophils # 0.1 (0-0.7) k/uL Basophils # 0.0 (0-0.2) k/uL PT 10.7 (9.0-12.0) sec INR 1.1 (<1.2) APTT 24.5 (22.0-30.0) sec Sodium 137 (137-145) mmol/L Potassium 4.0 (3.5-5.1) mmol/L Chloride 105 (98-107) mmol/L Carbon Dioxide 25 (22-30) mmol/L Anion Gap 7 mmol/L BUN 34 H (9-20) mg/dL Creatinine 0.84 (0.66-1.25) mg/dL Est GFR (CKD-EPI)AfAm >90 (>60 ml/min/1.73 sqM) Est GFR (CKD-EPI)NonAf 82 (>60 ml/min/1.73 sqM) Glucose 136 H (74-99) mg/dL Calcium 8.9 (8.4-10.2) mg/dL Phosphorus 4.6 H (2.5-4.5) mg/dL Magnesium 1.9 (1.6-2.3) mg/dL Total Bilirubin 0.3 (0.2-1.3) mg/dL AST 27 (17-59) U/L ALT 32 (21-72) U/L Alkaline Phosphatase 73 (38-126) U/L Total Protein 5.8 L (6.3-8.2) g/dL Albumin 3.3 L (3.5-5.0) g/dL Disposition Clinical Impression: Vasovagal syncope, Migraine Disposition: HOME SELF-CARE Condition: Good Instructions: Syncope (ED) Is patient prescribed a controlled substance at d/c from ED?: No Referrals: Louis Lawson MD [Primary Care Provider] - 1-2 days
[2018-08-23 22:12] LABS: Basophils % (A) 1 %; Eosinophils # (A) 0.1 k/uL (0-0.7); Eosinophils % (A) 3 %; HCT 31.7 % (39.0-53.0); HGB 10.8 gm/dL (13.0-17.5); Lymphocytes # (A) 0.9 k/uL (1.0-4.8); Lymphocytes % (A) 20 %; MCH 31.8 pg (25.0-35.0); MCHC 34.2 g/dL (31.0-37.0); MCV 93.1 fL (80.0-100.0); Mean Platelet Volume 6.7; Monocytes # (A) 0.3 k/uL (0-1.0); Monocytes % (A) 7 %; Neutrophils # (A) 3.1 k/uL (1.3-7.7); Neutrophils % (A) 67 %; Platelet Count 213 k/uL (150-450); RBC 3.41 m/uL (4.30-5.90); RDW 13.6 % (11.5-15.5); WBC 4.7 k/uL (3.8-10.6)
[2018-08-23 22:19] LABS: INR 1.1 (<1.2); Partial Thromboplastin Time 24.5 sec (22.0-30.0); Prothrombin Time 10.7 sec (9.0-12.0)
[2018-08-23 22:25] LABS: ALT 32 U/L (21-72); AST 27 U/L (17-59); Albumin 3.3 g/dL (3.5-5.0); Alkaline Phosphatase 73 U/L (38-126); Anion Gap 7 mmol/L; Blood Urea Nitrogen 34 mg/dL (9-20); Calcium 8.9 mg/dL (8.4-10.2); Carbon Dioxide 25 mmol/L (22-30); Chloride 105 mmol/L (98-107); Glucose 136 mg/dL (74-99); Magnesium 1.9 mg/dL (1.6-2.3); Phosphorus 4.6 mg/dL (2.5-4.5); Sodium 137 mmol/L (137-145); Total Bilirubin 0.3 mg/dL (0.2-1.3); Total Protein 5.8 g/dL (6.3-8.2)
[2018-08-23 22:45] LABS: Creatine Kinase MB 3.1 ng/mL (0.0-2.4); Troponin I 0.016 ng/mL (0.000-0.034)
[2018-08-23 23:36] VITALS: BP 104/66; RESP 22
[2018-08-23 23:43] VITALS: TEMP 98.1
== END 2018-08-23 23:22 | disposition home or self-care (01) ==
LOC: EC 21:33
DX: G43.909 Migraine, unspecified, not intractable, without status migrainosus (principal); I95.9 Hypotension, unspecified; I25.119 Atherosclerotic heart disease of native coronary artery with unspecified angina pectoris; K21.9 Gastro-esophageal reflux disease without esophagitis; H40.9 Unspecified glaucoma; D64.9 Anemia, unspecified; G47.33 Obstructive sleep apnea (adult) (pediatric); M19.90 Unspecified osteoarthritis, unspecified site; I69.392 Facial weakness following cerebral infarction; G20 Parkinson's disease; I73.9 Peripheral vascular disease, unspecified; Z88.5 Allergy status to narcotic agent; Z88.8 Allergy status to other drugs, medicaments and biological substances; Z79.02 Long term (current) use of antithrombotics/antiplatelets; Z79.1 Long term (current) use of non-steroidal anti-inflammatories (NSAID); Z79.899 Other long term (current) drug therapy; Z85.46 Personal history of malignant neoplasm of prostate; Z92.21 Personal history of antineoplastic chemotherapy; Z92.3 Personal history of irradiation; Z95.5 Presence of coronary angioplasty implant and graft; Z96.653 Presence of artificial knee joint, bilateral; Z98.890 Other specified postprocedural states; Z99.89 Dependence on other enabling machines and devices; Z82.49 Family history of ischemic heart disease and other diseases of the circulatory system
CPT/HCPCS: 36415; 80053; 82550; 82553; 83735; 84100; 84484; 85025; 85610; 85730; 93005; 99285

== ENCOUNTER → 2019-02-28 | Outpatient (CLI) | payer MEDICARE ==
--- NOTE | 2019-02-28 13:53 | CT ---
EXAMINATION TYPE: CT abdomen pelvis wo con DATE OF EXAM: 02/28/2019 HISTORY: Hematuria and low back pain. CT DLP: 970 mGycm. Automated Exposure Control for Dose Reduction was Utilized. TECHNIQUE: CT scan of the abdomen and pelvis is performed without oral or IV contrast. COMPARISON: CT abdomen and pelvis March 19, 2017 FINDINGS: Within the limitations of a non-contrast study, the following observations are made. LUNG BASES: There is patchy bibasilar linear scarring and/or atelectasis redemonstrated. Coronary art saul calcification in the RCA distribution is again seen. LIVER/GB: No significant abnormality is appreciated. PANCREAS: No significant abnormality is seen. SPLEEN: Small splenule inferior splenic hilum redemonstrated. ADRENALS: No significant abnormality is seen. KIDNEYS: There are 3 calculi measuring up to 5 mm in size scattered throughout the right kidney on cu rrent study and 2 calculi measuring up to 5 mm in size scattered throughout the left kidney. There is simple appearing 4.0 cm cyst mid pole level left kidney axial image 50 redemonstrated. No hydronephr osis or obstructing ureter calculi are clearly seen bilaterally. No intraluminal calculus is seen in poorly distended bladder. Bladder wall is abnormally thickened with irregular trabeculations similar to prior. Finding presumed related to outlet obstruction from underlying BPH, correlate clinically. BOWEL: Evaluation bowel slightly suboptimal secondary to lack of enteric contrast. There is no suspic ious small or large bowel dilatation. There are prominent diverticula in the left and sigmoid colon w ithout CT evidence for acute diverticulitis. GENITAL ORGANS: Enlarged prostate gland with gold therapy seeds and central calcifications is redemon strated. LYMPH NODES: No greater than 1cm abdominal or pelvic lymph nodes are appreciated. OSSEOUS STRUCTURES: Slight dextroconvex scoliotic curvature centered L3 level with moderate to severe multilevel spurring and disc space narrowing throughout the lumbar spine is present. OTHER: There is moderate sized fat-containing right inguinal hernia on current study axial image 125 new from prior. Mild to moderate calcified plaque of the aorta extending into iliac branch vessels, infrarenal abdomi nal aorta measures up to 2.9 cm AP diameter axial image 58. Second smaller area of ectasia measuring up to 2.8 cm in AP diameter X image 70 is noted. 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 IMPRESSION: Persistent bilateral nephrolithiasis without hydronephrosis or obstructing ureter calculi . No significant new or acute finding seen.
== END | disposition home or self-care (01) ==
LOC: RADCTMAIN 13:06
PROVIDERS: ATTEND Internal Medicine Geriatric Medicine
DX: N20.0 Calculus of kidney (principal)
CPT/HCPCS: 74176

== ENCOUNTER → 2019-03-22 | Outpatient (CLI) | payer MEDICARE ==
--- NOTE | 2019-03-22 14:16 | XR ---
EXAMINATION TYPE: XR KUB DATE OF EXAM: 03/22/2019 COMPARISON: 02/28/2019 HISTORY: Pain TECHNIQUE: One view abdominal series FINDINGS: Right kidney: There are approximately 3 calculi on the right measuring approximately 5 mm. Left kidney: There is a 3 mm lower pole left renal calculus. Scoliosis and degenerative change of the spine with arthropathy of the hips. Vascular calcifications noted. Surgical clips in the pelvis. Calcifications in the pelvis are nonspecific but likely vascular . Bowel gas pattern nonspecific with no obstruction. Correlate for constipation. IMPRESSION: 1. Bilateral nephrolithiasis. 2. Nonspecific gas pattern correlate for constipation.
== END | disposition home or self-care (01) ==
LOC: RADXRMAIN 13:41
PROVIDERS: ATTEND Urology
DX: N20.0 Calculus of kidney (principal); N20.2 Calculus of kidney with calculus of ureter
CPT/HCPCS: 74018

== ENCOUNTER 2019-06-18 14:51 | Inpatient (IN) | payer MEDICARE ==
[2019-06-18] MEDS ORDERED: ASPIRIN 81 MG PO STA (15:25)
[2019-06-18] MEDS ORDERED: ONDANSETRON 4 MG/2 ML VIAL IVP STA (15:25)
--- NOTE | 2019-06-18 16:08 | XR ---
EXAMINATION TYPE: XR chest 2V DATE OF EXAM: 06/18/2019 COMPARISON: NONE HISTORY: Chest pain TECHNIQUE: Frontal and lateral views of the chest are obtained. FINDINGS: There is minimal linear density at the left lung base. Heart size is normal. There is no h eart failure. Thoracic aorta is atheromatous. Bony thorax is intact. IMPRESSION: Mild subsegmental atelectasis at the left lung base is new compared to old exam. Normal heart.
[2019-06-18 16:22] LABS: ALT 15 U/L (21-72); AST 39 U/L (17-59); African American GFR (CKD) >90 (>60 ml/min/1.73 sqM); Alkaline Phosphatase 87 U/L (38-126); Anion Gap 13 mmol/L; Blood Urea Nitrogen 17 mg/dL (9-20); Calcium 9.7 mg/dL (8.4-10.2); Carbon Dioxide 19 mmol/L (22-30); Chloride 95 mmol/L (98-107); Glucose 111 mg/dL (74-99); Magnesium 1.8 mg/dL (1.6-2.3); Sodium 127 mmol/L (137-145); Total Bilirubin 0.8 mg/dL (0.2-1.3); Total Protein 6.8 g/dL (6.3-8.2)
[2019-06-18 16:26] LABS: Potassium 4.7 mmol/L (3.5-5.1)
[2019-06-18 16:31] LABS: Basophils # (A) 0.1 k/uL (0-0.2); Basophils % (A) 1 %; Eosinophils # (A) 0.3 k/uL (0-0.7); Eosinophils % (A) 7 %; HCT 37.8 % (39.0-53.0); HGB 13.1 gm/dL (13.0-17.5); Lymphocytes # (A) 1.1 k/uL (1.0-4.8); Lymphocytes % (A) 26 %; MCH 30.8 pg (25.0-35.0); MCHC 34.5 g/dL (31.0-37.0); MCV 89.4 fL (80.0-100.0); Mean Platelet Volume 6.9; Monocytes # (A) 0.3 k/uL (0-1.0); Monocytes % (A) 7 %; Neutrophils # (A) 2.4 k/uL (1.3-7.7); Neutrophils % (A) 57 %; Platelet Count 198 k/uL (150-450); RBC 4.23 m/uL (4.30-5.90); RDW 12.9 % (11.5-15.5); WBC 4.1 k/uL (3.8-10.6)
[2019-06-18 16:47] LABS: Partial Thromboplastin Time 21.7 sec (22.0-30.0); Prothrombin Time 10.4 sec (9.0-12.0)
--- NOTE | 2019-06-18 17:44 | ED ---
Chest Pain HPI - General Chief Complaint: Chest Pain Stated Complaint: Chest pain Time Seen by Provider: 06/18/19 16:22 Source: patient, RN notes reviewed, old records reviewed Mode of arrival: wheelchair Limitations: no limitations - History of Present Illness Initial Comments: This is an 83-year-old male the ER today. Presents today for evaluation of chest pain for a week. Patient significant not feeling well feels very weak shortness of breath with exertion and having chest pain currently. Patient has a long significant medical history which is multiple surgeries multiple medical comorbidities including prior heart disease. Presents today for evaluation of chest pain. Patient just is anterior heaviness patient's chest pain started today. Weakness and fatigue going on for greater than a week. No recent fevers or cough congestion no travel history or sick contacts MD Complaint: chest pain -: hour(s) Onset: during rest Pain Location: substernal, left chest Pain Radiation: none Severity: mild Severity scale (1-10): 2 Quality: tightness, heaviness Consistency: constant Improves With: nothing Worsens With: exertion (Shortness of breath) Anginal Symptoms: dyspnea Other Symptoms: palpitations Treatments Prior to Arrival: none - Related Data Home Medications Medication Instructions Recorded Confirmed cloNIDine HCL [Catapres] 0.05 mg PO BID 05/21/14 06/18/19 Montelukast [Singulair] 10 mg PO HS 09/19/15 06/18/19 Latanoprost [Xalatan 0.005%] 1 drop BOTH EYES HS 08/20/16 06/18/19 Meloxicam [Mobic] 15 mg PO HS 08/20/16 06/18/19 Cholecalciferol [Vitamin D3 (25 1,000 unit PO HS 03/05/17 06/18/19 Mcg = 1000 Iu)] Clopidogrel [Plavix] 75 mg PO DAILY 03/05/17 06/18/19 Pramipexole [Mirapex] 1 mg PO BID 03/23/17 06/18/19 Hydrochlorothiazide 25 mg PO DAILY 02/07/18 06/18/19 levETIRAcetam [Keppra] 250 mg PO DAILY 02/07/18 06/18/19 levETIRAcetam [Keppra] 500 mg PO HS 02/07/18 06/18/19 Butalb/Acetaminophen/Caffeine 1 - 2 tab PO Q6H PRN MDD 6 TABS 07/14/18 06/18/19 [Fioricet 50-325-40] Ferrous Sulfate [Iron (65 MG 325 mg PO DAILY 07/14/18 06/18/19 Elemental)] Losartan Potassium 50 mg PO DAILY 07/14/18 06/18/19 Niacin 500 mg PO HS 07/14/18 06/18/19 Brimonidine Tartrate/Timolol 1 drop LEFT EYE BID 08/23/18 06/18/19 [Combigan 0.2%-0.5% Eye Drops] Carvedilol 25 mg PO BID 08/23/18 06/18/19 Omeprazole 40 mg PO HS 08/23/18 06/18/19 amLODIPine [Norvasc] 5 mg PO HS 08/23/18 06/18/19 Methocarbamol [Robaxin-750] 750 mg PO QID PRN 06/18/19 06/18/19 Physio [place] 720mg 1 tab PO BID 06/18/19 06/18/19 Ubidecarenone [Co Q-10] 200 mg PO DAILY 06/18/19 06/18/19 Previous Rx's Medication Instructions Recorded Aspirin 325 mg PO DAILY tab 07/16/18 Rosuvastatin Calcium [Crestor] 40 mg PO HS #30 tab 07/16/18 Allergies Allergy/AdvReac Type Severity Reaction Status Date / Time metoclopramide [From Reglan] AdvReac SHAKES Verified 06/18/19 16:03 oxycodone HCl AdvReac Nausea & Verified 06/18/19 16:03 [From OxyContin] Vomiting Review of Systems ROS Statement: Those systems with pertinent positive or pertinent negative responses have been documented in the HPI. ROS Other: All systems not noted in ROS Statement are negative. 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, multiple TIAs, parkinson's disease, neuralgia, neuropathy bilateral hands, legs and feet, thoracic spondylosis, prostrate cancer with surgery/chemo and radiation, UTIs, kidney stones, L eye glaucoma, PVD/bilateral lower extremity edema, caratid stenosis, aemia, bronchitis, lower GI bleed, ANDREA with CPap History of Any Multi-Drug Resistant Organisms: None Reported Past Surgical History: Adenoidectomy, Back Surgery, Heart Catheterization With Stent, Hernia Repair, Joint Replacement, Orthopedic Surgery, Prostate Surgery, Tonsillectomy Additional Past Surgical History / Comment(s): PCI with stent in 2013, prostate biopsies, laser vaporization of prostrate, bilateral inquinal hernia repairs, EGD/colonoscopy, supraorbital percutaneous nerve stimulator trial, epidural injections, low back surgery, R foot hammer toe surgery, bilateral total knee replacements, bilateral cataract removals/lens implants, hemorrhoidectomy, R side of head vein biopsy Past Anesthesia/Blood Transfusion Reactions: No Reported Reaction Additional Past Anesthesia/Blood Transfusion Reaction / Comment(s): Pt has received blood in past without reaction. Date of Last Stent Placement:: 2012 Past Psychological History: No Psychological Hx Reported Smoking Status: Never smoker Past Alcohol Use History: None Reported Past Drug Use History: None Reported - Past Family History Brother(s) Additional Family Medical History / Comment(s): Patient has 3 brothers with no major medical problems. Sister(s) Additional Family Medical History / Comment(s): Patient has 3 sisters that are all alive. 2 have high blood pressure. One has diabetes and stroke and is 81 years old. And all have history of tremors. Son(s) Additional Family Medical History / Comment(s): Patient has 3 sons and one daughter with no major medical problems. Father Family Medical History: Myocardial Infarction ([place]) Additional Family Medical History / Comment(s): Father at age 73 with history of Parkinson's disease, bowel cancer, bone cancer. Mother Family Medical History: Myocardial Infarction ([place]) Additional Family Medical History / Comment(s): Mother at age 85 with history of hypertension and dementia. General Exam Limitations: no limitations General appearance: alert, in no apparent distress Head exam: Present: atraumatic, normocephalic, normal inspection Eye exam: Present: normal appearance, PERRL, EOMI. Absent: scleral icterus, conjunctival injection, periorbital swelling ENT exam: Present: normal exam, mucous membranes moist Neck exam: Present: normal inspection. Absent: tenderness, meningismus, lymphadenopathy Respiratory exam: Present: normal lung sounds bilaterally. Absent: respiratory distress, wheezes, rales, rhonchi, stridor Cardiovascular Exam: Present: regular rate, normal rhythm, normal heart sounds. Absent: systolic murmur, diastolic murmur, rubs, gallop, clicks GI/Abdominal exam: Present: soft, normal bowel sounds. Absent: distended, tenderness, guarding, rebound, rigid Extremities exam: Present: normal inspection, full ROM, normal capillary refill. Absent: tenderness, pedal edema, joint swelling, calf tenderness Back exam: Present: normal inspection Neurological exam: Present: alert, oriented X3, CN II-XII intact Psychiatric exam: Present: normal affect, normal mood Skin exam: Present: warm, dry, intact, normal color. Absent: rash Course Vital Signs 06/18/19 06/18/19 14:57 15:49 Temperature 97.7 F Pulse Rate 67 63 Respiratory 18 18 Rate Blood Pressure 149/84 132/73 O2 Sat by Pulse 98 99 Oximetry - Reevaluation(s) Reevaluation #1: 06/18/19 17:59 Record is reviewed Reevaluation #2: 06/18/19 18:00 Patient still feeling very weak with continued episodic chest pain - Consultations Consultation #1: Spoke with Dr. Nguyen who is agreeable for admission Chest Pain MDM - MDM 83 male the ER for evaluation will admit for cardiac observation. Currently EKG and troponin are negative. Critical Care Time Critical Care Time: Yes Total Critical Care Time: 31 Disposition Clinical Impression: Chest pain, Weakness Disposition: ADMITTED IP TO THIS HOSP Condition: Undetermined Instructions (If sedation given, give patient instructions): Chest Pain (ED) Is patient prescribed a controlled substance at d/c from ED?: No Referrals: Louis Lawson MD [Primary Care Provider] - 1-2 days
[2019-06-18] MEDS ORDERED: NITROGLYCERIN SL TABS 0.4 MG TAB SUBLINGUAL PRN (17:56)
[2019-06-18] MEDS ORDERED: HEPARIN SODIUM,PORCINE 5,000 UNIT/ML 1 ML VIAL IV PRN (17:56)
[2019-06-18] MEDS ORDERED: HEPARIN SODIUM,PORCINE 5,000 UNIT/ML 1 ML VIAL IV ONE (17:56)
[2019-06-18] MEDS ORDERED: HEPARIN SOD,PORK IN 0.45% NACL 25,000 UNIT in 0.45% NACL 1 250ML.BAG IV SCH (18:00)
[2019-06-18] MEDS ORDERED: KETOROLAC 30 MG/ML 1 ML VIAL IVP STA (19:09)
[2019-06-18] MEDS ORDERED: METOPROLOL TARTRATE 25 MG TAB PO SCH (21:00)
[2019-06-19 04:12] LABS: Mean Platelet Volume 6.7; Platelet Count 129 k/uL (150-450)
[2019-06-19 04:26] LABS: Cholesterol 197 mg/dL (<200); HDL Cholesterol 61 mg/dL (40-60); LDL Cholesterol,Calculated 121 mg/dL (0-99); Triglycerides 75 mg/dL (<150)
[2019-06-19] MEDS ORDERED: METHOCARBAMOL 750 MG TAB PO PRN (09:00)
[2019-06-19] MEDS ORDERED: cloNIDine HCL 0.1 MG TAB PO SCH (09:00)
[2019-06-19] MEDS ORDERED: ATORVASTATIN 80 MG TAB PO SCH (09:00)
[2019-06-19] MEDS ORDERED: ASPIRIN 325 MG TAB PO SCH (09:00)
[2019-06-19] MEDS ORDERED: ASPIRIN 81 MG PO SCH (09:00)
[2019-06-19] MEDS: ACETAMINOPHEN TAB 325 MG TAB PO PRN (09:35)
[2019-06-19] MEDS ORDERED: ALPRAZolam 0.5 MG TAB PO PRN (09:49)
[2019-06-19] MEDS ORDERED: ALPRAZolam 0.25 MG TAB PO PRN (09:49)
[2019-06-19] MEDS ORDERED: NITROGLYCERIN SL TABS 0.4 MG TAB SUBLINGUAL PRN (09:49)
--- NOTE | 2019-06-19 10:06 | P.CRDCN ---
History of Present Illness History of present illness: This is a pleasant 83-year-old male past medical history significant for coronary artery disease, TIA, hypertension, dyslipidemia, obstructive sleep apnea, Parkinson's disease and peripheral vascular disease. He does not currently follow closely with a motor runner. He underwent stent placement of the RCA in 2010 while in [place]. He had a repeat catheterization 6-[address] that secondary to unstable angina. Catheterization revealed a patent stent in the RCA with evidence of 50-60% disease in the second diagonal branch. We will see him in consultation secondary to chest discomfort. He states for 3 days has been having pressure in the chest associated with shortness of breath, nausea and mildly diaphoretic. Worse with activity and improves with rest. He also complained of pain in the right buttocks that radiates down the right leg as well as a migraine-type headache. He is seen and examined resting comfortably lying flat in bed in no acute distress. He denies chest discomfort at this time. Breathing is stable. EKG reveals sinus mechanism with no acute ST or T wave abnormalities noted. Chest x-ray is negative for an acute cardiopulmonary process. Laboratory data reviewed, cardiac enzymes negative 3, WBC 4.1, hemoglobin 13.1, platelets 129, sodium 127, potassium 4.7, creatinine 0.68, magnesium 1.8, LDL 121. Current daily cardiac medications include rosuvastatin 40 mg daily, clonidine 0.5 mg twice a day, amlodipine 5 mg daily, carvedilol 25 mg twice a day, hydrochlorothiazide 25 mg daily, losartan 50 mg daily, Plavix 75 mg daily and aspirin 325 mg daily. Most recent echocardiogram obtained June 2018 reveals preserved LV systolic function with ejection fraction 50-55%, moderate aortic valve sclerosis, mild aortic stenosis with a mean gradient of 9 mmHg, mild TR and mild pulmonary hypertension with an RVSP of 27 mmHg. At the time of my exam: CONSTITUTIONAL: Denies fever. Denies chills. EYES: Denies blurred vision. Denies vision changes. Denies eye pain. EARS, NOSE, MOUTH & THROAT: Denies headache. Denies sore throat. Denies ear pa in. CARDIOVASCULAR: Denies chest pain. Denies shortness of breath. Denies orthopnea. Denies PND. Denies palpitations. RESPIRATORY: Denies cough. GASTROINTESTINAL: Denies abdominal pain. Denies diarrhea. Denies constipation. Denies nausea. Denies vomiting. MUSCULOSKELETAL: Complains of pain in the right buttocks with radiation down the right leg. INTEGUMENTARY: Denies pruitis. Denies rash. NEUROLOGIC: Denies numbness. Denies tingling. Denies weakness. Complains of headache. PSYCHIATRIC: Denies anxiety. Denies depression. ENDOCRINE: Denies fatigue. Denies weight change. Denies polydipsia. Denies polyurina. GENITOURINARY: Denies burning, hematuria or urgency with micturation. HEMATOLOGIC: Denies history of anemia. Denies bleeding. Blood pressure 159/82 heart rate 55 afebrile maintaining oxygen saturation on nasal cannula GENERAL: This is a 83-year-old male in no apparent distress at the time of my examination. HEENT: Head is atraumatic, normocephalic. Pupils are equal, round. Sclerae anicteric. Conjunctivae are clear. Mucous membranes of the mouth are moist. Neck is supple. There is no jugular venous distention. No carotid bruit is heard. LUNGS: Clear to auscultation no wheezes, rales or rhonchi. No chest wall tenderness is noted on palpation or with deep breathing. HEART: Regular rate and rhythm with systolic ejection murmur at the base, no rubs or gallops. S1 and S2 heard. ABDOMEN: Soft, nontender. Bowel sounds are heard. No organomegaly noted. EXTREMITIES: No evidence of peripheral edema and no calf tenderness noted. VASCULAR: Radial and dorsalis pedis pulses palpated, no evidence of clubbing. NEUROLOGIC: Patient is awake, alert and oriented x3. ASSESSMENT Chest pain suggestive of unstable angina in a patient with known underlying CAD Hyponatremia History of TIA, recent brain MRI, 06/2018 revealed multiple lacunar infarcts. Hypertension Dyslipidemia History of coronary artery disease status post PCI in 2010 in [place]. PLAN Recommend proceeding with cardiac catheterization to assess for progression of CAD. I have discussed the risks, benefits and alternative therapies for the above-mentioned procedure and for both sedation/analgesia as well as necessary blood product administration, if indicated, as they pertain to this patient. The patient has indicated understanding and acceptance of the risks and procedures discussed. Questions have been answered appropriately and he is agreeable to proceed with cardiac catheterization tomorrow with Dr. Ramirez. Obtain 2D echocardiogram and doppler study to assess cardiac structure and func tion. Would recommend decreasing clonidine to slowly wean him off this medication as he has frequent dizziness. Will optimize his medical therapy. Further recommendations to follow. Thank you kindly for this consultation. Nurse Practitioner note has been reviewed, I agree with a documented findings and plan of care. Patient was seen and examined. 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, multiple TIAs, parkinson's disease, neuralgia, neuropathy bilateral hands, legs and feet, thoracic spondylosis, prostrate cancer with surgery/chemo and radiation, UTIs, kidney stones, L eye glaucoma, PVD/bilateral lower extremity edema, caratid stenosis, aemia, bronchitis, lower GI bleed, ANDREA with CPap History of Any Multi-Drug Resistant Organisms: None Reported Past Surgical History: Adenoidectomy, Back Surgery, Heart Catheterization With Stent, Hernia Repair, Joint Replacement, Orthopedic Surgery, Prostate Surgery, Tonsillectomy Additional Past Surgical History / Comment(s): PCI with stent in 2012, prostate biopsies, laser vaporization of prostrate, bilateral inquinal hernia repairs, EGD/colonoscopy, supraorbital percutaneous nerve stimulator trial, epidural injections, low back surgery, R foot hammer toe surgery, bilateral total knee replacements, bilateral cataract removals/lens implants, hemorrhoidectomy, R s kvng of head vein biopsy Past Anesthesia/Blood Transfusion Reactions: No Reported Reaction Additional Past Anesthesia/Blood Transfusion Reaction / Comment(s): Pt has received blood in past without reaction. Date of Last Stent Placement:: 2012 Past Psychological History: No Psychological Hx Reported Additional Psychological History / Comment(s): Pt resides with his spouse. He uses a walker to ambulate. He drives. Smoking Status: Never smoker Past Alcohol Use History: None Reported Past Drug Use History: None Reported - Past Family History Brother(s) Additional Family Medical History / Comment(s): Patient has 3 brothers with no major medical problems. Sister(s) Additional Family Medical History / Comment(s): Patient has 3 sisters that are all alive. 2 have high blood pressure. One has diabetes and stroke and is 81 years old. And all have history of tremors. Son(s) Additional Family Medical History / Comment(s): Patient has 3 sons and one daughter with no major medical problems. Father Family Medical History: Myocardial Infarction ([place]) Additional Family Medical History / Comment(s): Father at age 73 with history of Parkinson's disease, bowel cancer, bone cancer. Mother Family Medical History: Myocardial Infarction ([place]) Additional Family Medical History / Comment(s): Mother at age 85 with history of hypertension and dementia. Medications and Allergies Home Medications Medication Instructions Recorded Confirmed Type cloNIDine HCL [Catapres] 0.05 mg PO BID 05/21/14 06/18/19 History Montelukast [Singulair] 10 mg PO HS 09/19/15 06/18/19 History Latanoprost [Xalatan 0.005%] 1 drop BOTH EYES HS 08/20/16 06/18/19 History Meloxicam [Mobic] 15 mg PO HS 08/20/16 06/18/19 History Cholecalciferol [Vitamin D3 (25 1,000 unit PO HS 03/05/17 06/18/19 History Mcg = 1000 Iu)] Clopidogrel [Plavix] 75 mg PO DAILY 03/05/17 06/18/19 History Pramipexole [Mirapex] 1 mg PO BID 03/23/17 06/18/19 History Hydrochlorothiazide 25 mg PO DAILY 02/07/18 06/18/19 History levETIRAcetam [Keppra] 250 mg PO DAILY 02/07/18 06/18/19 History levETIRAcetam [Keppra] 500 mg PO HS 02/07/18 06/18/19 History Butalb/Acetaminophen/Caffeine 1 - 2 tab PO Q6H PRN MDD 6 TABS 07/14/18 06/18/19 History [Fioricet 50-325-40] Ferrous Sulfate [Iron (65 MG 325 mg PO DAILY 07/14/18 06/18/19 History Elemental)] Losartan Potassium 50 mg PO DAILY 07/14/18 06/18/19 History Niacin 500 mg PO HS 07/14/18 06/18/19 History Aspirin 325 mg PO DAILY tab 07/16/18 06/18/19 Rx Rosuvastatin Calcium [Crestor] 40 mg PO HS #30 tab 07/16/18 06/18/19 Rx Brimonidine Tartrate/Timolol 1 drop LEFT EYE BID 08/23/18 06/18/19 History [Combigan 0.2%-0.5% Eye Drops] Carvedilol 25 mg PO BID 08/23/18 06/18/19 History Omeprazole 40 mg PO HS 08/23/18 06/18/19 History amLODIPine [Norvasc] 5 mg PO HS 08/23/18 06/18/19 History Methocarbamol [Robaxin-750] 750 mg PO QID PRN 06/18/19 06/18/19 History Physio Parmelee 720mg 1 tab PO BID 06/18/19 06/18/19 History Ubidecarenone [Co Q-10] 200 mg PO DAILY 06/18/19 06/18/19 History Allergies Allergy/AdvReac Type Severity Reaction Status Date / Time metoclopramide [From Reglan] AdvReac SHAKES Verified 06/18/19 16:03 oxycodone HCl AdvReac Nausea & Verified 06/18/19 16:03 [From OxyContin] Vomiting Physical Exam Vitals: Vital Signs Temp Pulse Pulse Resp BP BP Pulse Ox 06/19/19 07:20 98.2 F 55 L 18 159/82 98 06/19/19 04:00 98.0 F 55 L 15 132/74 97 06/19/19 00:00 56 L 16 06/18/19 23:28 97.6 F 56 L 16 113/65 99 06/18/19 20:30 69 15 06/18/19 20:00 98.0 F 69 15 127/88 99 06/18/19 19:31 98 F 61 18 158/98 99 06/18/19 19:05 63 18 144/91 95 06/18/19 15:49 63 18 132/73 99 06/18/19 14:57 97.7 F 67 18 149/84 98 Intake and Output 06/18/19 06/19/19 06/19/19 22:59 06:59 14:59 Intake Total 100 Output Total 225 200 Balance 100 -225 -200 Intake: Oral 100 Output: Urine 225 200 Other: # Voids 2 Results 06/19/19 03:46 06/18/19 15:35 Cardiac Enzymes 06/18/19 06/18/19 06/18/19 Range/Units 15:35 15:35 21:07 AST 39 (17-59) U/L Troponin I <0.012 <0.012 (0.000-0.034) ng/mL 06/19/19 Range/Units 03:45 AST (17-59) U/L Troponin I <0.012 (0.000-0.034) ng/mL Coagulation 06/18/19 06/19/19 Range/Units 15:35 03:46 PT 10.4 (9.0-12.0) sec APTT 21.7 L 56.4 H (22.0-30.0) sec Lipids 06/19/19 Range/Units 03:45 Triglycerides 75 (<150) mg/dL Cholesterol 197 (<200) mg/dL HDL Cholesterol 61 H (40-60) mg/dL CBC 06/18/19 06/19/19 Range/Units 15:35 03:46 WBC 4.1 (3.8-10.6) k/uL RBC 4.23 L (4.30-5.90) m/uL Hgb 13.1 (13.0-17.5) gm/dL Hct 37.8 L (39.0-53.0) % Plt Count 198 129 L (150-450) k/uL Comprehensive Metabolic Panel 06/18/19 Range/Units 15:35 Sodium 127 L (137-145) mmol/L Potassium 4.7 (3.5-5.1) mmol/L Chloride 95 L (98-107) mmol/L Carbon Dioxide 19 L (22-30) mmol/L BUN 17 (9-20) mg/dL Creatinine 0.68 (0.66-1.25) mg/dL Glucose 111 H (74-99) mg/dL Calcium 9.7 (8.4-10.2) mg/dL AST 39 (17-59) U/L ALT 15 L (21-72) U/L Alkaline Phosphatase 87 (38-126) U/L Total Protein 6.8 (6.3-8.2) g/dL Albumin 4.0 (3.5-5.0) g/dL Current Medications Generic Name Dose Route Start Last Admin Trade Name Freq PRN Reason Stop Dose Admin Aspirin 325 mg 06/19/19 09:00 Aspirin PO DAILY [facility] Atorvastatin Calcium 80 mg 06/19/19 09:00 Lipitor PO DAILY [facility] Heparin Sodium (Porcine) 0 unit 06/18/19 17:56 Heparin IV Q6HR PRN Low PTT Protocol Heparin Sodium/Sodium Chloride 250 mls @ 10.002 mls/hr 06/18/19 18:00 06/18/19 18:56 25,000 unit/ Sodium Chloride IV 10.55 units/kg/hr .Q24H MOI 10.002 mls/hr Administration Protocol 10.55 UNITS/KG/HR Metoprolol Tartrate 25 mg 06/18/19 21:00 06/18/19 21:00 Lopressor PO 25 mg BID [facility] Administration Nitroglycerin 0.4 mg 06/18/19 17:56 Nitrostat SUBLINGUAL Q5M PRN Chest Pain Intake and Output 06/18/19 06/19/19 06/19/19 22:59 06:59 14:59 Intake Total 100 Output Total 225 200 Balance 100 -225 -200 Intake: Oral 100 Output: Urine 225 200 Other: # Voids 2 06/19/19 03:46 06/18/19 15:35
[2019-06-19] MEDS: HYDROCHLOROTHIAZIDE 25 MG TAB PO SCH (10:09)
[2019-06-19] MEDS: levETIRAcetam 250 MG TAB PO SCH (10:10)
[2019-06-19] MEDS: ASPIRIN 81 MG PO SCH (10:11)
[2019-06-19] MEDS: PRAMIPEXOLE 1 MG TAB PO SCH ×2 (10:11→20:23)
[2019-06-19] MEDS: FERROUS SULFATE 325 MG TAB PO SCH (10:11)
[2019-06-19] MEDS: BUTALB/APAP/CAFF 50-325-40MG TAB PO PRN (10:11)
[2019-06-19] MEDS: LOSARTAN 50 MG TAB PO SCH (10:11)
[2019-06-19] MEDS: BRIMONIDINE TARTRATE 0.2% DROPS 5 ML BTL LEFT EYE SCH ×2 (10:12→20:19)
[2019-06-19] MEDS: TIMOLOL 0.5% OPHTH DROPS 5 ML BTL LEFT EYE SCH (10:13)
[2019-06-19] MEDS: CARVEDILOL 12.5 MG TAB PO SCH ×2 (10:19→16:57)
[2019-06-19] MEDS ORDERED: HEPARIN SODIUM,PORCINE 5,000 UNIT/ML 1 ML VIAL IV PRN (10:34)
--- NOTE | 2019-06-19 10:35 | ECHOF ---
Referral Reason:cp MEASUREMENTS -------- HEIGHT: 165.1 cm WEIGHT: 94.8 kg BP: 132/74 RVIDd: 3.8 cm (< 3.3) IVSd: 1.4 cm (0.6 - 1.1) LVIDd: 4.4 cm (3.9 - 5.3) LVPWd: 1.4 cm (0.6 - 1.1) IVSs: 2.0 cm LVIDs: 3.0 cm LVPWs: 2.0 cm LA Diam: 4.4 cm (2.7 - 3.8) LAESV Index (A-L): 33.55 ml/m Ao Diam: 4.1 cm (2.0 - 3.7) AV Cusp: 1.4 cm (1.5 - 2.6) MV EXCURSION: 17.701 mm (> 18.000) MV EF SLOPE: 26 mm/s (70 - 150) EPSS: 0.4 cm MV E Shant: 0.58 m/s MV DecT: 442 ms MV A Shant: 0.99 m/s MV E/A Ratio: 0.59 AV maxP.12 mmHg AV meanP.01 mmHg RAP: 5.00 mmHg RVSP: 37.19 mmHg TAPSE: 15.12 mm FINDINGS -------- Sinus rhythm. This was a technically adequate study. The left ventricular size is normal. There is moderate concentric left ventricular hypertrophy. O verall left ventricular systolic function is normal with, an EF between 55 - 60 %. The right ventricle is mild to moderately enlarged. LA is midly dilated 29-33ml/m2. The right atrial size is normal. Interatrial and interventricular septum intact. There is moderate aortic valve sclerosis. There is mild aortic regurgitation. There is mild aorti c stenosis present. Peak/mean gradient across the Aortic Valve is 17.12mmHg / 9.01mmHg. Mild mitral annular calcification present. Mild mitral regurgitation is present. Mild tricuspid regurgitation present. There is mild pulmonary hypertension. The right ventricular systolic pressure, as measured by Doppler, is 37.19mmHg. The pulmonic valve was not well visualized. There is no pulmonic regurgitation present. The aortic root is dilated measuring 4.1cm. Normal inferior vena cava with normal inspiratory collapse consistent with estimated right atrial pre ssure of 5 mmHg. There is no pericardial effusion. CONCLUSIONS -------- 1. Sinus rhythm. 2. This was a technically adequate study. 3. The left ventricular size is normal. 4. There is moderate concentric left ventricular hypertrophy. 5. Overall left ventricular systolic function is normal with, an EF between 55 - 60 %. 6. The right ventricle is mild to moderately enlarged. 7. LA is midly dilated 29-33ml/m2. 8. There is moderate aortic valve sclerosis. 9. There is mild aortic regurgitation. 10. There is mild aortic stenosis present. 11. Peak/mean gradient across the Aortic Valve is 17.12mmHg / 9.01mmHg. 12. Mild mitral annular calcification present. 13. Mild mitral regurgitation is present. 14. Mild tricuspid regurgitation present. 15. There is mild pulmonary hypertension. 16. The pulmonic valve was not well visualized. 17. The aortic root is dilated measuring 4.1cm. 18. Normal inferior vena cava with normal inspiratory collapse consistent with estimated right atrial pressure of 5 mmHg. 19. There is no pericardial effusion. PHOTOGRAPHIC HAND DEVELOPER: Delores Crow RDCS
[2019-06-19] MEDS: HEPARIN SOD,PORK IN 0.45% NACL 25,000 UNIT in 0.45% NACL 1 250ML.BAG IV SCH ×2 (10:56→16:58)
[2019-06-19] MEDS ORDERED: MORPHINE SULFATE 4 MG/ML SYRINGE IVP STA (12:38)
[2019-06-19] MEDS: ONDANSETRON 4 MG/2 ML VIAL IVP PRN ×2 (12:57→20:28)
--- NOTE | 2019-06-19 13:45 | P.HPIM ---
History of Present Illness H&P Date: 06/19/19 Chief Complaint: Chest pain This is an 83-year-old male patient of Dr. Lawson and Dr. Byrd with a previous medical history significant for CAD status post stent placement of the RCA in 2010 while in [place]. He had a repeat catheterization 6-7 months after that secondary to unstable angina. Catheterization revealed a patent stent in the RCA with evidence of 50-60% disease in the second diagonal branch. Past medical history of hypertension and hypertensive cardiovascular disease with left ventricular hypertrophy, obstructive sleep apnea with CPAP, prostate cancer status post surgery, chemotherapy and radiation therapy, recurrent TIA, 70% carotid stenoses internal carotid artery follows with Dr. 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 He does have some weakness on the left lower extremity side which is chronic. Patient follows with a helper animal laboratory in [place], [place], and was last seen 6 months ago. Patient complains of chest pain for the past 3 days. He denies any dizziness or lightheadedness. He has some mild shortness of breath and nausea. When he lies down this seems to help alleviate symptoms. Patient is also complaining of migraine headache which she states once is above the level #7 he is unable to tolerate it. He states he normally comes into the ER and receives morphine 5 mg and Zofran which will be ordered. Patient came into [facility] emergency center. Troponins negative 3, WBC 4.1, hemoglobin 13.1, platelets 129, sodium 127, potassium 4.7, creatinine 0.68, magnesium 1.8, LDL 121. EKG is sinus rhythm with no acute ST-T wave changes. Chest x-ray was negative for any acute cardiopulmonary process. Most recent echocardiogram obtained June 2018 reveals preserved LV systolic function with ejection fraction 50-55%, moderate aortic valve sclerosis, mild aortic stenosis with a mean gradient of 9 mmHg, mild TR and mild pulmonary hypertension with an RVSP of 27 mmHg. patient was placed on the observation unit and seen by cardiology with plan for heart catheterization tomorrow. Review of Systems Constitutional: Denies chills, Denies fatigue, Denies fever, Denies malaise, Denies poor appetite Eyes: bilateral photophobia Ears, nose, mouth and throat: Reports headache, Denies dental pain, Denies dysphagia, Denies nasal congestion, Denies nasal discharge, Denies vertigo Cardiovascular: Reports chest pain, Denies decreased exercise tolerance, Denies dyspnea on exertion, Denies edema, Denies leg edema, Denies lightheadedness, Denies orthopnea, Denies palpitations, Denies syncope Respiratory: Reports sleep apnea, Denies cough, Denies cough with sputum, Denies dyspnea, Denies excessive sputum, Denies hemoptysis, Denies home oxygen, Denies wheezing Gastrointestinal: Denies abdominal pain, Denies diarrhea, Denies loss of appetite, Denies melena, Denies nausea, Denies vomiting Genitourinary: Denies dysuria, Denies urinary retention Musculoskeletal: Denies frequent falls, Denies gait dysfunction, Denies muscle weakness, Denies myalgias Integumentary: Denies pruritus, Denies rash, Denies wounds Neurological: Reports headaches, Denies change in mentation, Denies change in speech, Denies gait dysfunction, Denies numbness, Denies vertigo, Denies weakness Psychiatric: Denies anxiety, Denies depression Endocrine: Denies fatigue, Denies weight change Past Medical History Past Medical History: Coronary Artery Disease (CAD), Cancer, Chest Pain / Angina, CVA/TIA, Eye Disorder, GERD/Reflux, GI Bleed, Hyperlipidemia, Hy pertension, Neurologic Disorder, Osteoarthritis (OA), Prostate Disorder, Sleep Apnea/CPAP/BIPAP, Syncope, Vascular Disorder Additional Past Medical History / Comment(s): 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, multiple TIAs, parkinson's disease, neuralgia, neuropathy bilateral hands, legs and feet, thoracic spondylosis, prostrate cancer with surgery/chemo and radiation, UTIs, kidney stones, L eye glaucoma, PVD/bilateral lower extremity edema, caratid stenosis, aemia, bronchitis, lower GI bleed, ANDREA with CPap History of Any Multi-Drug Resistant Organisms: None Reported Past Surgical History: Adenoidectomy, Back Surgery, Heart Catheterization With Stent, Hernia Repair, Joint Replacement, Orthopedic Surgery, Prostate Surgery, Tonsillectomy Additional Past Surgical History / Comment(s): PCI with stent in 2013, prostate biopsies, laser vaporization of prostrate, bilateral inquinal hernia repairs, EGD/colonoscopy, supraorbital percutaneous nerve stimulator trial, epidural injections, low back surgery, R foot hammer toe surgery, bilateral total knee replacements, bilateral cataract removals/lens implants, hemorrhoidectomy, R side of head vein biopsy Past Anesthesia/Blood Transfusion Reactions: No Reported Reaction Additional Past Anesthesia/Blood Transfusion Reaction / Comment(s): Pt has received blood in past without reaction. Date of Last Stent Placement:: 2012 Past Psychological History: No Psychological Hx Reported Additional Psychological History / Comment(s): Pt resides with his spouse. He uses a walker to ambulate. He drives. Smoking Status: Never smoker Past Alcohol Use History: None Reported Past Drug Use History: None Reported - Past Family History Brother(s) Additional Family Medical History / Comment(s): Patient has 3 brothers with no major medical problems. Sister(s) Additional Family Medical History / Comment(s): Patient has 3 sisters that are all alive. 2 have high blood pressure. One has diabetes and stroke and is 81 years old. And all have history of tremors. Son(s) Additional Family Medical History / Comment(s): Patient has 3 sons and one daughter with no major medical problems. Father Family Medical History: Myocardial Infarction ([place]) Additional Family Medical History / Comment(s): Father at age 73 with history of Parkinson's disease, bowel cancer, bone cancer. Mother Family Medical History: Myocardial Infarction ([place]) Additional Family Medical History / Comment(s): Mother at age 85 with history of hypertension and dementia. Medications and Allergies Home Medications Medication Instructions Recorded Confirmed Type cloNIDine HCL [Catapres] 0.05 mg PO BID 05/21/14 06/18/19 History Montelukast [Singulair] 10 mg PO HS 09/19/15 06/18/19 History Latanoprost [Xalatan 0.005%] 1 drop BOTH EYES HS 08/20/16 06/18/19 History Meloxicam [Mobic] 15 mg PO HS 08/20/16 06/18/19 History Cholecalciferol [Vitamin D3 (25 1,000 unit PO HS 03/05/17 06/18/19 History Mcg = 1000 Iu)] Clopidogrel [Plavix] 75 mg PO DAILY 03/05/17 06/18/19 History Pramipexole [Mirapex] 1 mg PO BID 03/23/17 06/18/19 History Hydrochlorothiazide 25 mg PO DAILY 02/07/18 06/18/19 History levETIRAcetam [Keppra] 250 mg PO DAILY 02/07/18 06/18/19 History levETIRAcetam [Keppra] 500 mg PO HS 02/07/18 06/18/19 History Butalb/Acetaminophen/Caffeine 1 - 2 tab PO Q6H PRN MDD 6 TABS 07/14/18 06/18/19 History [Fioricet 50-325-40] Ferrous Sulfate [Iron (65 MG 325 mg PO DAILY 07/14/18 06/18/19 History Elemental)] Losartan Potassium 50 mg PO DAILY 07/14/18 06/18/19 History Niacin 500 mg PO HS 07/14/18 06/18/19 History Aspirin 325 mg PO DAILY tab 07/16/18 06/18/19 Rx Rosuvastatin Calcium [Crestor] 40 mg PO HS #30 tab 07/16/18 06/18/19 Rx Brimonidine Tartrate/Timolol 1 drop LEFT EYE BID 08/23/18 06/18/19 History [Combigan 0.2%-0.5% Eye Drops] Carvedilol 25 mg PO BID 08/23/18 06/18/19 History Omeprazole 40 mg PO HS 08/23/18 06/18/19 History amLODIPine [Norvasc] 5 mg PO HS 08/23/18 06/18/19 History Methocarbamol [Robaxin-750] 750 mg PO QID PRN 06/18/19 06/18/19 History Physio [place] 720mg 1 tab PO BID 06/18/19 06/18/19 History Ubidecarenone [Co Q-10] 200 mg PO DAILY 06/18/19 06/18/19 History Allergies Allergy/AdvReac Type Severity Reaction Status Date / Time metoclopramide [From Reglan] AdvReac SHAKES Verified 06/18/19 16:03 oxycodone HCl AdvReac Nausea & Verified 06/18/19 16:03 [From OxyContin] Vomiting Physical Exam Vitals: Vital Signs Temp Pulse Pulse Resp BP BP Pulse Ox 06/19/19 07:20 98.2 F 55 L 18 159/82 98 06/19/19 04:00 98.0 F 55 L 15 132/74 97 06/19/19 00:00 56 L 16 06/18/19 23:28 97.6 F 56 L 16 113/65 99 06/18/19 20:30 69 15 06/18/19 20:00 98.0 F 69 15 127/88 99 06/18/19 19:31 98 F 61 18 158/98 99 06/18/19 19:05 63 18 144/91 95 06/18/19 15:49 63 18 132/73 99 06/18/19 14:57 97.7 F 67 18 149/84 98 Intake and Output 06/18/19 06/19/19 06/19/19 22:59 06:59 14:59 Intake Total 100 Output Total 225 200 Balance 100 -225 -200 Intake: Oral 100 Output: Urine 225 200 Other: Voiding Method Toilet # Voids 2 Gen: This is an 83-year-old obese male. Patient is resting flat in bed with covers over his face. HEENT: Head is atraumatic, normocephalic. Pupils equal, round. Sclerae is anicteric. NECK: Supple. No JVD. No lymphadenopathy. No thyromegaly. LUNGS: Clear to auscultation. No wheezes or rhonchi. No intercostal retr actions. HEART: Regular rate and rhythm. Systolic murmur. ABDOMEN: Soft. Bowel sounds are present. No masses. No tenderness. EXTREMITIES: No pedal edema. No calf tenderness. NEUROLOGICAL: Patient is awake, alert and oriented x3. Cranial nerves 2 through 12 are grossly intact. Results CBC & Chem 7: 06/19/19 03:46 06/18/19 15:35 Labs: Abnormal Lab Results - Last 24 Hours (Table) 06/18/19 06/18/19 06/18/19 Range/Units 15:35 15:35 15:35 RBC 4.23 L (4.30-5.90) m/uL Hct 37.8 L (39.0-53.0) % Plt Count (150-450) k/uL APTT 21.7 L (22.0-30.0) sec Sodium 127 L (137-145) mmol/L Chloride 95 L (98-107) mmol/L Carbon Dioxide 19 L (22-30) mmol/L Glucose 111 H (74-99) mg/dL ALT 15 L (21-72) U/L LDL Cholesterol, Calc (0-99) mg/dL HDL Cholesterol (40-60) mg/dL 06/19/19 06/19/19 06/19/19 Range/Units 03:45 03:46 03:46 RBC (4.30-5.90) m/uL Hct (39.0-53.0) % Plt Count 129 L (150-450) k/uL APTT 56.4 H (22.0-30.0) sec Sodium (137-145) mmol/L Chloride (98-107) mmol/L Carbon Dioxide (22-30) mmol/L Glucose (74-99) mg/dL ALT (21-72) U/L LDL Cholesterol, Calc 121 H (0-99) mg/dL HDL Cholesterol 61 H (40-60) mg/dL Thrombosis Risk Factor Assmnt - DVT/VTE Prophylaxis DVT/VTE Prophylaxis: Pharmacologic Prophylaxis ordered - Choose All That Apply Any of the Below Risk Factors Present?: Yes Each Factor Represents 1 point: Acute [place], Obesity (BMI >25) Other Risk Factors: Yes Each Risk Factor Represents 3 Points: Age 75 years or older Other congenital or acquired thrombophilia - If yes, enter type in comment: No Thrombosis Risk Factor Assessment Total Risk Factor Score: 5 Thrombosis Risk Factor Assessment Level: High Risk Assessment and Plan Plan: 1. Chest pain, possible unstable angina. Acute cardiac syndrome ruled out. Patient is scheduled for heart catheterization tomorrow, echocardiogram to be obtained. Continue aspirin 81 mg daily, Lipitor, Coreg. 2. Migraine headache, uncontrolled. Patient will be order for morphine 5 mg IV 1 and Zofran as needed for nausea. 3. Dizziness. Cardiology has decreased clonidine with plan to wean him off this medication. 4. History of coronary artery disease status post stent placement in the RCA. Continue as in #1. 5. Hypertension, hypertensive cardio vascular disease with left ventricular hypertrophy. Continue Norvasc 5 mg at bedtime, Coreg 25 mg twice daily, hydrochlorothiazide 25 mg daily, losartan 50 mg daily, clonidine decreased to 0.2 mg 3 times daily. 6. Recurrent TIA with 70% carotid stenosis internal carotid artery following with Dr. Londono. Continue aspirin, Lipitor for secondary prevention. 7. Parkinson's disease, stable. Continue Keppra, Robaxin. 8. 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 9. Obstructive sleep apnea with CPAP 10. History of prostate cancer status post surgery and chemotherapy, radiation, stable. 11. Glaucoma. Continue eyedrops. Patient placed on the observation status. Discharge plan: Impression and plan of care have been directed as dictated by the signing physician. Suly Gallo nurse practitioner acting as scribe for signing physician.
[2019-06-19] MEDS: cloNIDine HCL 0.2 MG TAB PO SCH ×2 (16:57→20:23)
[2019-06-19] MEDS: amLODIPine 5 MG TAB PO SCH (20:22)
[2019-06-19] MEDS: PANTOPRAZOLE 40 MG TABLET PO SCH (20:23)
[2019-06-19] MEDS: MONTELUKAST 10 MG TAB PO SCH (20:23)
[2019-06-19] MEDS ORDERED: diphenhydrAMINE 25 MG CAP PO STA (20:53)
[2019-06-19] MEDS ORDERED: NON FORMULARY DRUG (Rosuvastatin Calcium [Crestor] 40 MG) PO SCH (21:00)
[2019-06-19] MEDS ORDERED: levETIRAcetam 500 MG TAB PO SCH (21:00)
[2019-06-19] MEDS: MORPHINE SULFATE 2 MG/ML SYRINGE IVP PRN (21:04)
[2019-06-19] MEDS: LATANOPROST 0.005% OPHTH DROPS 2.5 ML BTL BOTH EYES SCH (21:09)
[2019-06-20] MEDS ORDERED: SODIUM CHLORIDE 0.9% 1,000 ML in EMPTY BAG 1 BAG IV ONE (06:00)
[2019-06-20] MEDS ORDERED: ASPIRIN 325 MG TAB PO ONE (06:00)
[2019-06-20] MEDS ORDERED: ATORVASTATIN 80 MG TAB PO ONE (06:00)
[2019-06-20] MEDS: TIMOLOL 0.5% OPHTH DROPS 5 ML BTL LEFT EYE SCH ×3 (06:25→21:46)
[2019-06-20] MEDS: MORPHINE SULFATE 2 MG/ML SYRINGE IVP PRN (06:39)
[2019-06-20] MEDS: CARVEDILOL 12.5 MG TAB PO SCH ×2 (06:40→17:53)
[2019-06-20] MEDS: LOSARTAN 50 MG TAB PO SCH (06:40)
[2019-06-20] MEDS: ONDANSETRON 4 MG/2 ML VIAL IVP PRN (06:47)
[2019-06-20] MEDS: levETIRAcetam 250 MG TAB PO SCH (06:48)
[2019-06-20] MEDS: HYDROCHLOROTHIAZIDE 25 MG TAB PO SCH (06:49)
[2019-06-20] MEDS: PRAMIPEXOLE 1 MG TAB PO SCH ×2 (06:49→21:39)
[2019-06-20] MEDS: BUTALB/APAP/CAFF 50-325-40MG TAB PO PRN (08:35)
[2019-06-20] MEDS: cloNIDine HCL 0.2 MG TAB PO SCH ×3 (08:36→21:39)
[2019-06-20] MEDS ORDERED: SODIUM CHLORIDE 0.9% 1,000 ML IV ONE (11:14)
[2019-06-20] MEDS ORDERED: VERAPAMIL 2.5 MG/ML 2 ML AMP ONE (11:17)
[2019-06-20] MEDS ORDERED: fentaNYL (PF) 50 MCG/ML 2 ML AMP IVP ONE (11:20)
[2019-06-20] MEDS ORDERED: MIDAZOLAM PF (FBP) 2 MG/2 ML VIAL IVP ONE (11:20)
[2019-06-20] MEDS ORDERED: fentaNYL (PF) 50 MCG/ML 2 ML AMP ONE (11:20)
[2019-06-20] MEDS ORDERED: LIDOCAINE 1% INJ 10MG/ML (20 ML MDV) SQ ONE (11:20)
[2019-06-20] MEDS ORDERED: HEPARIN SODIUM 1,000 UN/ML (10ML VL) IV ONE (11:21)
[2019-06-20] MEDS ORDERED: VERAPAMIL SYRINGE (5 MG/10 ML) IVP ONE (11:22)
[2019-06-20] MEDS ORDERED: SODIUM CHLORIDE 0.9% 500 ML 500 ML IV ONE (11:40)
[2019-06-20] MEDS ORDERED: IOPAMIDOL-370 125ML BTL INJ ONE (11:50)
--- NOTE | 2019-06-20 11:58 | P.CARDCATH ---
Date of Procedure: 06/20/19 Preoperative Diagnosis: Unstable angina Postoperative Diagnosis: Stable coronary artery disease with a patent stent in the RCA and mild to moderate disease in the diagonal Procedure(s) Performed: Left heart catheterization without left ventriculography Description of Procedure: HISTORY: This is a 83-year-old gentleman with history of ischemic heart disease and previous stent placement of the RCA who was admitted to the hospital with complaints of recurrent chest pains. EKGs are normal and cardiac enzymes were negative. However because of typical chest pain and previous history, patient is advised to have a cardiac catheterization. CONSENT: The risks, benefits and alternative therapies were discussed for the above-mentioned procedure and for both sedation/analgesia as well as necessary blood product administration, if indicated, as they pertain to this patient. The patient has indicated understanding and acceptance of the risks and procedures discussed. PROCEDURE: Patient was brought to the lab in a fasting state. Patient was given some IV sedation. The right radial wrist is infiltrated with lidocaine and right radial artery was entered using Seldinger technique. A 6-Polish catheter was left in place and selective coronary arteriography was performed. Patient tolerated the procedure well. TR band was was applied for hemostasis. No immediate complications were noted and patient was transferred to [facility] in a stable condition Conscious Sedation: Versed 1mg Fentanyl 25 g Duration 28minutes HEMODYNAMICS: The aortic pressure was about 80-90 systolic. Left ventricular end-diastolic pressures of 12-14. There was no gradient across the aortic valve SELECTIVE CORONARY ARTERIOGRAPHY: LEFT MAIN: Normal length and free of occlusive disease THE LEFT ANTERIOR DESCENDING CORONARY ARTERY:. This is a fair caliber vessel giving rise to good-sized 2 diagonal branches. The first diagonal branch is free of any significant occlusive disease. The second diagonal branch has about 50% stenosis proximally and then ectatic area midportion but doesn't appear to be significant. The rest of the LAD is mild disease in the midportion with no critical lesions. THE LEFT CIRCUMFLEX AND IS CORONARY ARTERY: Nondominant vessel with mild disease without any critical lesions THE RIGHT CORONARY ARTERY:. The right coronary artery is a dominant vessel and tortuous in its proximal course. It gives rise good- sized PDA and PLV. It has mild diffuse disease without any critical lesions. Previous stent seemed to be patent LEFT VENTRICULOGRAPHY: Not performed FINAL IMPRESSION:. Stable coronary artery disease with patent stent in the RCA and mild to moderate disease in the diagonal PLAN: Maximum medical therapy and risk factor modification PROGNOSIS: Fair
[2019-06-20 12:47] LABS: Glucose,Whole Blood 120 mg/dL (75-99)
--- NOTE | 2019-06-20 13:12 | CT ---
EXAMINATION TYPE: CT brain wo con for TPA DATE OF EXAM: 06/20/2019 COMPARISON: 07/14/2018 HISTORY: Code Stroke tPA Unenhanced CT of the brain was performed. The ventricles, basal cisterns and sulci overlying the cerebral convexities demonstrate moderate enla rgement. There is no evidence for intracranial hemorrhage or sulcal effacement. There is decreased attenuation about the periventricular white matter and deep white matter of both c erebral hemispheres, compatible with chronic small vessel ischemia. Differential diagnosis does inclu de demyelination. No mass effects are seen.No midline shift. Osseous calvarium is intact. If symptoms persist consider MRI. IMPRESSION: 1. Age related atrophic and chronic small vessel ischemic change without acute intracranial process s een at this time.
[2019-06-20] MEDS: FERROUS SULFATE 325 MG TAB PO SCH (13:42)
[2019-06-20 13:55] LABS: Basophils % (A) 1 %; Eosinophils # (A) 0.4 k/uL (0-0.7); Eosinophils % (A) 9 %; HCT 36.8 % (39.0-53.0); HGB 12.4 gm/dL (13.0-17.5); Lymphocytes % (A) 24 %; MCH 31.1 pg (25.0-35.0); MCHC 33.7 g/dL (31.0-37.0); MCV 92.5 fL (80.0-100.0); Mean Platelet Volume 5.7; Monocytes # (A) 0.3 k/uL (0-1.0); Monocytes % (A) 7 %; Neutrophils # (A) 2.2 k/uL (1.3-7.7); Neutrophils % (A) 56 %; Platelet Count 181 k/uL (150-450); RBC 3.98 m/uL (4.30-5.90); RDW 12.6 % (11.5-15.5)
[2019-06-20 13:56] LABS: ALT 19 U/L (21-72); AST 35 U/L (17-59); African American GFR (CKD) >90 (>60 ml/min/1.73 sqM); Albumin 3.5 g/dL (3.5-5.0); Alkaline Phosphatase 64 U/L (38-126); Anion Gap 9 mmol/L; Blood Urea Nitrogen 23 mg/dL (9-20); Calcium 8.8 mg/dL (8.4-10.2); Carbon Dioxide 23 mmol/L (22-30); Chloride 97 mmol/L (98-107); Glucose 102 mg/dL (74-99); Sodium 129 mmol/L (137-145); Total Bilirubin 0.8 mg/dL (0.2-1.3); Total Protein 6.2 g/dL (6.3-8.2)
[2019-06-20 13:57] LABS: Partial Thromboplastin Time 62.5 sec (22.0-30.0); Prothrombin Time 10.6 sec (9.0-12.0)
--- NOTE | 2019-06-20 13:57 | P.PN ---
Subjective Progress Note Date: 06/20/19 This is an 83-year-old male patient of Dr. Lawson and Dr. Byrd with a previous medical history significant for CAD status post stent placement of the RCA in 2010 while in [place]. He had a repeat catheterization 6-7 months after that secondary to unstable angina. Catheterization revealed a patent stent in the RCA with evidence of 50-60% disease in the second diagonal branch. Past medical history of hypertension and hypertensive cardiovascular disease with left ventricular hypertrophy, obstructive sleep apnea with CPAP, prostate cancer status post surgery, chemotherapy and radiation therapy, recurrent TIA, 70% carotid stenoses internal carotid artery follows with Dr. 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 He does have some weakness on the left lower extremity side which is chronic. Patient follows with a chainstitch z[facility] setter in [place], [place], and was last seen 6 months ago. Patient complains of chest pain for the past 3 days. He denies any dizziness or lightheadedness. He has some mild shortness of breath and nausea. When he lies down this seems to help alleviate symptoms. Patient is also complaining of migraine headache which she states once is above the level #7 he is unable to tolerate it. He states he normally comes into the ER and receives morphine 5 mg and Zofran which will be ordered. Patient came into [facility] emergency center. Troponins negative 3, WBC 4.1, hemoglobin 13.1, platelets 129, sodium 127, potassium 4.7, creatinine 0.68, magnesium 1.8, LDL 121. EKG is sinus rhythm with no acute ST-T wave changes. Chest x-ray was negative for any acute cardiopulmonary process. Most recent echocardiogram obtained June 2018 reveals preserved LV systolic function with ejection fraction 50-55%, moderate aortic valve sclerosis, mild aortic stenosis with a mean gradient of 9 mmHg, mild TR and mild pulmonary hypertension with an RVSP of 27 mmHg. patient was placed on the observation unit and seen by cardiology with plan for heart catheterization tomorrow. 06/20 patient underwent cardiac cath today and was found to have stable coronary artery disease with patent stent in the RCA and mild to moderate disease in the diagonal. Patient was found to be incoherent with facial droop involving the left face so now after the cardiac cath. CTA was ordered that did not show any major vessel disease. Patient was not a Candidate for Thrombectomy. PT Levels Drawn If Less Than 30 in the next 25 minutes with the meet the criteria for TPA. Stat EEG and MRI has been ordered. Neurology consult placed for acute stroke. Objective - Vital Signs Vital signs: Vital Signs Temp 97.9 F 06/20/19 08:00 Pulse 53 L 06/20/19 08:00 Resp 16 06/20/19 11:24 BP 120/64 06/20/19 08:00 Pulse Ox 93 L 06/20/19 08:00 Intake & Output 06/19/19 06/20/19 06/20/19 18:59 06:59 18:59 Intake Total 500.345 580 355 Output Total 200 550 Balance 300.345 30 355 Weight 92 kg Intake: IV 80 355 0.9 80 Intake, IV Titration 60.345 380 Amount Heparin Sod,Pork in 0.45% 60.345 NaCl 25,000 unit In 0.45 % NaCl 1 250ml.bag @ 10. 55 UNITS/KG/HR 10.002 mls /hr IV .Q24H [facility] Rx#: [id number] Sodium Chloride 0.9% 1, 380 000 ml In Empty Bag 1 bag @ 1 ML/KG/HR 94.801 mls/ hr IV .[id number] ONE Rx#: [id number] Oral 240 120 Other 200 Output: Urine 200 550 Other: Voiding Method Toilet Toilet Toilet # Voids 2 - Exam - Constitutional General appearance: cooperative, no acute distress, unable to answer questions - EENT Eyes: anicteric sclerae, PERRLA, normal appearance ENT: hearing grossly normal - Neck Neck: no lymphadenopathy, normal ROM, no other, no rigidity, no stridor, no thyromegaly - Respiratory Respiratory: bilateral: CTA, negative: diminished, dullness, rales, rhonchi - Cardiovascular Rhythm: regular Heart sounds: normal: S1, S2 Abnormal Heart Sounds: T/5 systolic murmur, no diastolic murmur, no rub, no S3 Gallop, no S4 Gallop, no click, no other - Gastrointestinal General gastrointestinal: normal bowel sounds, soft - Integumentary Integumentary: no rash - Neurologic Neurologic: Left facial droop nonfocal exam decreased comprehension and repetition patient unable to follow commands exam CNII-XII intact - Musculoskeletal Musculoskeletal: Strength equal bilaterally with slight decrease on the left side lower extremity - Psychiatric Psychiatric: A orientation could not be assessed as patient is unable to answer questions, appropriate affect - Labs CBC & Chem 7: 06/19/19 03:46 06/18/19 15:35 Labs: Abnormal Lab Results - Last 24 Hours (Table) 06/20/19 Range/Units 12:35 POC Glucose (mg/dL) 120 H (75-99) mg/dL Assessment and Plan Plan: 1. Chest pain, possible unstable angina. Acute cardiac syndrome ruled out. Heart cath stable coronary artery disease with patent RCA stent, echocardiogram to be obtained. Continue aspirin 81 mg daily, Lipitor, Coreg. 2. Migraine headache, uncontrolled. Patient will be order for morphine 5 mg IV 1 and Zofran as needed for nausea. 3. Left facial droop with slurred speech and Dizziness. Cardiology has decreased clonidine with plan to wean him off this medication. CT head negative for acute bleed CTA negative for any thrombosis. Stat MRI EEG ordered a neurology consult placed. Seizure precautions to be taken. 4. History of coronary artery disease status post stent placement in RCA. Continue as in #1. 5. Hypertension, hypertensive cardio vascular disease with left ventricular hypertrophy. Continue Norvasc 5 mg at bedtime, Coreg 25 mg twice daily, hydrochlorothiazide 25 mg daily, losartan 50 mg daily, clonidine decreased to 0.2 mg 3 times daily. 6. Recurrent TIA with 70% carotid stenosis internal carotid artery following with Dr. Londono. Continue aspirin, Lipitor for secondary prevention. 7. Parkinson's disease, stable. Continue Keppra, Robaxin. 8. 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 9. Obstructive sleep apnea with CPAP 10. History of prostate cancer status post surgery and chemotherapy, radiation, stable. 11. Glaucoma. Continue eyedrops. 12 prognosis poor
[2019-06-20 14:04] LABS: Potassium 5.1 mmol/L (3.5-5.1)
--- NOTE | 2019-06-20 14:10 | CT ---
EXAMINATION TYPE: CT angio head neck DATE OF EXAM: 06/20/2019 COMPARISON: 02/07/2018 HISTORY: Weakness, Lt facial droop, confusion CT DLP: 584.1 mGycm CONTRAST: Performed with IV Contrast, patient injected with 65 mL of Isovue 370. Combination Contrast CTA cervical carotids and [place] CTA cervical carotids with 3-D recons truction Contrast CTA of the cervical carotids was performed 3-D reconstruction imaging obtained at a separate workstation. Right carotid system: Mild plaque is seen of the right common carotid artery. There is moderate plaq ue also noted at the carotid bulb and proximal ICA. Estimated stenosis of 60%. ECA is patent. Righ t vertebral artery appears unremarkable. Left carotid system: Mild plaque is seen of the left common carotid artery. There is mild to moderat e plaque also noted at the carotid bulb and proximal ICA. Estimated stenosis of 40-50%. ECA is sal[place] nt. Left vertebral artery appears unremarkable. IMPRESSION: 1. Estimated stenosis right ICA 60% and left ICA 40-50%. CTA [place] with 3-D reconstruction Contrast CTA of the [place] was performed 3-D reconstruction imaging obtained at a separate workstation. Vertebrobasilar system as well as intracranial portions of the internal carotid arteries and their ma [place] tributaries are patent. I do not see evidence for sizable aneurysm or vascular malformation. Pl ease note MRI provides greater sensitivity and specificity. Visualized brain appears grossly unremar kable. IMPRESSION: 1. No significant abnormality.
--- NOTE | 2019-06-20 15:32 | MR ---
EXAMINATION TYPE: MR brain wo con DATE OF EXAM: 06/20/2019 COMPARISON: MRI brain July 15, 2018. CT brain from earlier today. HISTORY: Lt facial droop, confusion, weakness. Code stroke on admission earlier today. TECHNIQUE: Multiplanar, multisequence imaging of the brain and brainstem is performed without IV cont rast. FINDINGS: Exam is suboptimal due to patient motion possibly related to confusion requiring fast brai n protocol. Diffusion weighted images demonstrate no evidence of a recent infarct or other diffusion abnormality. There is no worrisome extra-axial fluid collection. There is diffuse ventricular and sulcal prominenc e. There are focal and confluent areas of T2 hyperintensity throughout the white matter most prominen t periventricular levels. Midline structures demonstrate normal morphology. The craniocervical junction appears within normal limits. Normal vascular flow voids are present. The visualized sinuses are clear and the globes are i ntact. IMPRESSION: No evidence of a recent infarct. Persistent mild to moderate diffuse cerebral atrophy wit h advanced chronic small vessel ischemic changes. No significant change from prior studies.
--- NOTE | 2019-06-20 15:44 | PN ---
PROGRESS NOTE This gentleman underwent a cardiac cath from right radial approach by Dr. Ramirez today. Following the catheterization,. I saw him briefly and he was doing well without any neurological issues or any chest discomfort. However, about 20 minutes or so later he became bradycardic with sinus bradycardia, no evidence of atrial fibrillation and also developed a neurological deficit in the form of weakness of the right upper extremity and speech issues. A CAT scan and CT angiography were performed and a code stroke was called. The intervention neurologist directed the management and he felt that he is not a candidate for any thrombolytic therapy. I came back to see the patient and he is doing much better, responds to questions and he also is able to move all 4 extremities and has a decent handgrip. The patient has improved neurologically. We will therefore continue management and we are awaiting the evaluation by Neurology today. Cardiac-bagley, he is asymptomatic neurologically is also doing very well. I saw the patient, examined him, and also talked to the patient's . LOLI / NAPOLEONN: [id number] /
[2019-06-20] MEDS: BRIMONIDINE TARTRATE 0.2% DROPS 5 ML BTL LEFT EYE SCH ×2 (16:57→21:45)
--- NOTE | 2019-06-20 17:26 | P.CNPUL ---
History of Present Illness Consult date: 06/20/19 Requesting physician: Clay Altamirano Reason for consult: other Chief complaint: left facial droop, expressive aphasia History of present illness: This is an 83-year-old patient with history of coronary artery disease, previous history of CVA/TIA, hypertension, dyslipidemia, upchucked of sleep a pnea, Parkinson's disease and peripheral vascular disease. Patient had reviewed his history of stenting of his RCA and a recent recatheterization 6 or 7 months ago related to his symptoms of unstable angina. His RCA stent was found to be patent, and redness of 50-60% disease in the second diagonal branch. Patient presents to the hospital on 06/18/2019 with complaints of chest pain, associated with shortness of breath. There were no acute ischemic changes on the EKG, chest x-ray was negative, most recent echocardiogram from June 2018 showed EF of 50-55%, moderate aortic valve sclerosis, mild aortic stenosis, mild TR. In view of patient's symptoms suggestive of unstable angina, patient underwent cardiac catheterization on the 06/20/2019, which showed stable coronary artery disease with patent stent in the RCA and mild to moderate disease in the diagonal coronary artery, and medical treatment was recommended. Following the catheterization, patient developed left-sided facial weakness, and expressive aphasia and confusion. But he is moving all 4 extremities. His initial NIH sc ore was 8, subsequently increased to 13. Brain CT without contrast showed age- related atrophic and chronic small vessel disease without acute intracranial process. Angiography CT of the head and neck showed no significant abnormality, MRI of the brain showed no evidence of recent infarct and persistent mild to moderate diffuse cervical atrophy with advanced chronic small vessel ischemic changes. Patient was placed in the intensive care unit for close neurological monitoring. His symptoms of speech slurring, and expressive aphasia persists he is moving all 4 extremities, he states his name correctly, however when asked about his age he keeps repeating his name. At times he is having difficulty following command. Patient was not a candidate for thrombolytics related to his elevated PTT. Neurology consultation is pending Review of Systems All systems: negative Constitutional: Denies chills, Denies fever Eyes: denies blurred vision, denies pain Ears, nose, mouth and throat: Denies headache, Denies sore throat Cardiovascular: Reports chest pain, Denies shortness of breath Respiratory: Denies cough Gastrointestinal: Denies abdominal pain, Denies diarrhea, Denies nausea, Denies vomiting Musculoskeletal: Denies myalgias Integumentary: Denies pruritus, Denies rash Neurological: Reports aphasia, Reports change in mentation, Reports change in speech, Denies numbness, Denies weakness Psychiatric: Denies anxiety, Denies depression Endocrine: Denies fatigue, Denies weight change 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, multiple TIAs, parkinson's disease, neuralgia, neuropathy bilateral hands, legs and feet, thoracic spondylosis, prostrate cancer with surgery/chemo and radiation, UTIs, kidney stones, L eye glaucoma, PVD/bilateral lower extremity edema, caratid stenosis, aemia, bronchitis, lower GI bleed, ANDREA with CPap History of Any Multi-Drug Resistant Organisms: None Reported Past Surgical History: Adenoidectomy, Back Surgery, Heart Catheterization With Stent, Hernia Repair, Joint Replacement, Orthopedic Surgery, Prostate Surgery, Tonsillectomy Additional Past Surgical History / Comment(s): PCI with stent in 2012, prostate biopsies, laser vaporization of prostrate, bilateral inquinal hernia repairs, EGD/colonoscopy, supraorbital percutaneous nerve stimulator trial, epidural injections, low back surgery, R foot hammer toe surgery, bilateral total knee replacements, bilateral cataract removals/lens implants, hemorrhoidectomy, R side of head vein biopsy Past Anesthesia/Blood Transfusion Reactions: No Reported Reaction Additional Past Anesthesia/Blood Transfusion Reaction / Comment(s): Pt has received blood in past without reaction. Date of Last Stent Placement:: 2012 Past Psychological History: No Psychological Hx Reported Additional Psychological History / Comment(s): Pt resides with his spouse. He uses a walker to ambulate. He drives. Smoking Status: Never smoker Past Alcohol Use History: None Reported Past Drug Use History: None Reported - Past Family History Brother(s) Additional Family Medical History / Comment(s): Patient has 3 brothers with no major medical problems. Sister(s) Additional Family Medical History / Comment(s): Patient has 3 sisters that are all alive. 2 have high blood pressure. One has diabetes and stroke and is 81 years old. And all have history of tremors. Son(s) Additional Family Medical History / Comment(s): Patient has 3 sons and one daughter with no major medical problems. Father Family Medical History: Myocardial Infarction (MA) Additional Family Medical History / Comment(s): Father at age 73 with history of Parkinson's disease, bowel cancer, bone cancer. Mother Family Medical History: Myocardial Infarction (MA) Additional Family Medical History / Comment(s): Mother at age 85 with history of hypertension and dementia. Medications and Allergies Home Medications Medication Instructions Recorded Confirmed Type cloNIDine HCL [Catapres] 0.05 mg PO BID 05/21/14 06/18/19 History Montelukast [Singulair] 10 mg PO HS 09/19/15 06/18/19 History Latanoprost [Xalatan 0.005%] 1 drop BOTH EYES HS 08/20/16 06/18/19 History Meloxicam [Mobic] 15 mg PO HS 08/20/16 06/18/19 History Cholecalciferol [Vitamin D3 (25 1,000 unit PO HS 03/05/17 06/18/19 History Mcg = 1000 Iu)] Clopidogrel [Plavix] 75 mg PO DAILY 03/05/17 06/18/19 History Pramipexole [Mirapex] 1 mg PO BID 03/23/17 06/18/19 History Hydrochlorothiazide 25 mg PO DAILY 02/07/18 06/18/19 History levETIRAcetam [Keppra] 250 mg PO DAILY 02/07/18 06/18/19 History levETIRAcetam [Keppra] 500 mg PO HS 02/07/18 06/18/19 History Butalb/Acetaminophen/Caffeine 1 - 2 tab PO Q6H PRN MDD 6 TABS 07/14/18 06/18/19 History [Fioricet 50-325-40] Ferrous Sulfate [Iron (65 MG 325 mg PO DAILY 07/14/18 06/18/19 History Elemental)] Losartan Potassium 50 mg PO DAILY 07/14/18 06/18/19 History Niacin 500 mg PO HS 07/14/18 06/18/19 History Aspirin 325 mg PO DAILY tab 07/16/18 06/18/19 Rx Rosuvastatin Calcium [Crestor] 40 mg PO HS #30 tab 07/16/18 06/18/19 Rx Brimonidine Tartrate/Timolol 1 drop LEFT EYE BID 08/23/18 06/18/19 History [Combigan 0.2%-0.5% Eye Drops] Carvedilol 25 mg PO BID 08/23/18 06/18/19 History Omeprazole 40 mg PO HS 08/23/18 06/18/19 History amLODIPine [Norvasc] 5 mg PO HS 08/23/18 06/18/19 History Methocarbamol [Robaxin-750] 750 mg PO QID PRN 06/18/19 06/18/19 History Physio [place] 720mg 1 tab PO BID 06/18/19 06/18/19 History Ubidecarenone [Co Q-10] 200 mg PO DAILY 06/18/19 06/18/19 History Allergies Allergy/AdvReac Type Severity Reaction Status Date / Time metoclopramide [From Reglan] AdvReac SHAKES Verified 06/18/19 16:03 oxycodone HCl AdvReac Nausea & Verified 06/18/19 16:03 [From OxyContin] Vomiting Physical Exam Vitals: Vital Signs Temp Pulse Pulse Resp BP Pulse Ox 06/20/19 14:05 54 L 13 06/20/19 11:24 16 06/20/19 08:00 97.9 F 53 L 16 120/64 93 L 06/20/19 04:00 98.1 F 54 L 18 126/64 97 06/20/19 00:00 98.3 F 53 L 17 102/57 97 06/19/19 20:00 97.9 F 67 18 131/69 95 06/19/19 17:30 71 06/19/19 17:01 65 Intake and Output 06/20/19 06/20/19 06/20/19 06:59 14:59 22:59 Intake Total 580 355 Output Total 350 Balance 230 355 Intake: IV 80 355 0.9 80 Intake, IV Titration 380 Amount Sodium Chloride 0.9% 1, 380 000 ml In Empty Bag 1 bag @ 1 ML/KG/HR 94.801 mls/ hr IV .[id number] ONE Rx#: [id number] Oral 120 Output: Urine 350 Other: Voiding Method Toilet Toilet # Voids 2 1 Weight 92 kg GENERAL EXAM: Alert, 83-year-old white male, with dysarthria and expressive aphasia, on room air, comfortable in no apparent distress. HEAD: Normocephalic/atraumatic. EYES: Normal reaction of pupils, equal size. Conjunctiva pink, sclera white. NOSE: Clear with pink turbinates. THROAT: No erythema or exudates. NECK: No masses, no JVD, no thyroid enlargement, no adenopathy. CHEST: No chest wall deformity. Symmetrical expansion. LUNGS: Equal air entry with no crackles, wheeze, rhonchi or dullness. CVS: Regular rate and rhythm, normal S1 and S2, no gallops, no murmurs, no rubs ABDOMEN: Soft, nontender. No hepatosplenomegaly, normal bowel sounds, no guarding or rigidity. EXTREMITIES: No clubbing, no edema, no cyanosis, 2+ pulses and upper and lower extremities. MUSCULOSKELETAL: Muscle strength and tone normal. SPINE: No scoliosis or deformity SKIN: No rashes CENTRAL NERVOUS SYSTEM: Alert and oriented -1. Patient has expressive aphasia, he is oriented to self, able to state name correctly, however when asked about his age he keeps repeating his name. No signs of facial weakness or motor weakness, patient is moving all 4 extremities Results - Laboratory Findings CBC and BMP: 06/20/19 13:27 06/20/19 13:27 PT/INR, D-dimer PT 10.6 sec (9.0-12.0) 06/20/19 13:27 INR 1.0 (<1.2) 06/20/19 13:27 Abnormal lab findings: Abnormal Labs 06/18/19 06/18/19 06/18/19 15:35 15:35 15:35 RBC 4.23 L Hgb Hct 37.8 L Plt Count APTT 21.7 L Sodium 127 L Chloride 95 L Carbon Dioxide 19 L BUN Glucose 111 H POC Glucose (mg/dL) ALT 15 L Total Protein LDL Cholesterol, Calc HDL Cholesterol 06/19/19 06/19/19 06/19/19 03:45 03:46 03:46 RBC Hgb Hct Plt Count 129 L APTT 56.4 H Sodium Chloride Carbon Dioxide BUN Glucose POC Glucose (mg/dL) ALT Total Protein LDL Cholesterol, Calc 121 H HDL Cholesterol 61 H 06/20/19 06/20/19 06/20/19 12:35 13:27 13:27 RBC 3.98 L Hgb 12.4 L Hct 36.8 L Plt Count APTT 62.5 H Sodium Chloride Carbon Dioxide BUN Glucose POC Glucose (mg/dL) 120 H ALT Total Protein LDL Cholesterol, Calc HDL Cholesterol 06/20/19 13:27 RBC Hgb Hct Plt Count APTT Sodium 129 L Chloride 97 L Carbon Dioxide BUN 23 H Glucose 102 H POC Glucose (mg/dL) ALT 19 L Total Protein 6.2 L LDL Cholesterol, Calc HDL Cholesterol - Diagnostic Findings Chest x-ray: report reviewed, image reviewed Additional studies: CT brain without contrast, CT brain with contrast, MRI of the brain reviewed Assessment and Plan Plan: Assessment: #1. Acute CVA/TIA, so far CT brain, an MRI of the brain showed no acute intracranial process, patient had a sudden onset of expressive aphasia, and left-sided arm weakness and facial droop, and the symptoms are improving #2. Symptoms of chest pain, patient underwent heart cath today on 06/20/2019, showing stable coronary artery disease #3. Coronary artery disease, with previous stenting to the RCA, today's heart catheterization showed a patent stent #4. Previous history of CVA in 2005 with slight left facial droop, multiple TIAs #5. Hypertension #6. Dyslipidemia #7. Obstructive sleep apnea #8. Parkinson's disease #9. History of prostate cancer with surgical resection followed by chemotherapy and radiation #10. Carotid stenosis, CT angiography of the head and neck showed right ICA of 60% and left ICA of 40-50% #11. Never smoker #12. Previous history of lower GI bleeding Plan: Patient was evaluated by interventional neurologist, and no thrombolytics or intervention were recommended at this time, neurology consultation is pending, will continue with close neurological monitoring, some of patient's symptoms including left arm weakness seems to have resolved, dysarthria and expressive aphasia persists. Maintain aspiration precautions, speech therapy evaluation. Hemodynamically patient is stable, no difficulty breathing, room air sat is 98%. Patient is on aspirin, beta blockers, Arb, cardiology recommendations have been noted. Will await further recommendations from neurology. I performed a history & physical examination of the patient and discussed their management with my nurse practitioner, Asia Galan. I reviewed the nurse practitioner's note and agree with the documented findings and plan of care. Lung sounds are positive for clear lung sounds. The findings and the impression was discussed with the patient. I attest to the documentation by the nurse practitioner. Time with Patient: Greater than 30
[2019-06-20] MEDS ORDERED: ACETAMINOPHEN SUPPOSITORY 650 MG SUPP RECTAL PRN (17:41)
[2019-06-20] MEDS ORDERED: RX INFO: IV CONTRAST WAS GIVEN 1 EACH MISC MISCELLANE PRN (17:59)
[2019-06-20] MEDS ORDERED: NALOXONE 0.4 MG/ML 1 ML VIAL IV PRN (19:55)
[2019-06-20] MEDS: SODIUM CHLORIDE 0.9% 1,000 ML IV SCH (20:02)
--- NOTE | 2019-06-20 20:52 | P.CNNES ---
History of Present Illness Consult date: 06/20/19 Reason for Consult: Stroke code, aphasia Chief complaint: Stroke code History of Present Illness: REFERRING PHYSICIAN: Dr. Landin HISTORY OF PRESENT ILLNESS: Thank you for allowing me to evaluate . Mr. Olman Rivera is an 83 year-old man with significant list of PMHx listed below including prostate cancer, L facial droop in 2004, TIAs, Parkinson's disease, possible seizure/syncopal episodes, ANDREA, who presented to [facility] for chest pain, admitted on 06/18/19, underwent cardiac cath this morning at 11:30am, consulting Neurology after a stroke consult. Pt appeared to want to use the bathroom, RN gave urinal to the bathroom, but he couldn't really use it appropriately and couldn't verbalize as he was able to prior to the cardiac cath. Stroke code was called at the time. Not a tPA candidate as patient had received heparin gtt during cardiac cath and had elevated PTT at 62.5 and no large vessel occlusion of CTA Head. Patient was transferred to ICU for closer monitoring. Daughter and at bedside. States that about 2 years ago when he was admitted to [facility], he had an episode of staring off for a couple of minutes, no seizure-like activity, family thinks it happened in the setting of low BP, but patient was started on Keppra at the time. Unclear if he had EEG at the time. EEG from 2017 shows normal findings. MRI brain performed today not sh owing any acute ischemia. Patient continues to be confused and not following many commands. PAST MEDICAL HISTORY: Coronary artery disease, chest pain, stroke, GERD, GI bleed, hyperlipidemia, hypertension, osteoarthritis, sleep apnea, syncope, stroke with slight left facial droop in 2004, multiple TIAs, Parkinson's disease, neuropathy, thoracic spondylosis, prostate cancer with surgery, chemo and radiation, kidney stones, PVD, ANDREA PAST SURGICAL HISTORY: Adenoidectomy, heart catheterization with stent, hernia repair, tonsillectomy, prostate biopsies, bilateral inguinal hernia repairs, low back surgery, right foot hammertoe surgery, bilateral total knee replacements, bilateral cataract removals, hemorrhoidectomy, right side of head vein biopsy HOME MEDICATIONS: Clonidine, Singulair, meloxicam, vitamin D, Plavix, pramipexole, Keppra, hydrochlorothiazide, Fioricet, ferrous sulfate, losartan, niacin, aspirin, Crestor, omeprazole, carvedilol, eye drops, amlodipine, Co A-10 ALLERGIES: Metoclopramide, oxycodone SOCIAL HISTORY: Never smoker. FAMILY HISTORY: Father with DC, Parkinson's disease, bowel cancer and bone cancer. Mother had DC, hypertension dementia. 3 brothers with no major medical problems. 3 sisters with high blood pressure. One had diabetes and stroke. All with history of tremors. REVIEW OF SYSTEMS: The 14 systems are reviewed and no additional points are identified compared to the review of systems documented history and physical PHYSICAL EXAMINATION: VITAL SIGNS: T 97.6 HR 59 RR 12 BP 188/103 O2 sat 98% on room air GEN.: NAD HEENT: NCAT, sclera without icterus NECK: Supple SKIN AND EXTREMITIES: Warm to touch, no edema NEURO: MENTAL STATUS: Patient opens his eyes to verbal stimuli, keeps repeating his name when asked a question. Family state patient needs hearing aids, but he intermittently is following commands. CRANIAL NERVES II THROUGH XII: II: Pupils are equal and reactive to light symmetrically. Blinks to threat bilaterally. III, IV, : No ptosis. Does not track very well. Primary gaze with some exotropia. VII. No clear facial asymme try. MOTOR: Normal bulk/tone. 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 1+ in b/l LE Toes are mute. No clonus. COORDINATION/GAIT: deferred DIAGNOSTIC TESTING: LABORATORY: WBC 4.0 hemoglobin 12.4 platelet 181 PT 10.6 PTT 62.5 Sodium 129 potassium 5.1 chloride 97 bicarb 23 BUN 23 creatinine 0.80 glucose 102 AST 35 ALT 19 total cholesterol 197 LDL 121 HDL 61 triglycerides 75 IMAGING: CT head without contrast 06/20/2019: Age-related atrophic and chronic small vessel ischemic change without acute intracranial process seen at this time. CT angiogram of the head and neck with contrast 06/20/2019: Estimated stenosis right ICA 60% and left ICA 40-50%. No significant abnormality of intracranial arteries. MRI brain without contrast 06/20/2019: No evidence of a recent infarct. Persistent mild to moderate diffuse cerebral atrophy with advanced chronic small vessel ischemic changes. No significant change from prior studies. Possible old R padilla radiata infarct. Will discuss with radiology tomorrow. EEG 2017: Normal findings. No seizures. EKG showing bradycardia ASSESSMENT: Mr. Olman Rivera is an 83 year-old man with significant list of PMHx listed below including prostate cancer, L facial droop in 2004, TIAs, Parkinson's dis ease, possible seizure/syncopal episodes, ANDREA, who presented to [facility] for chest pain, admitted on 06/18/19, underwent cardiac cath this morning at 11:30am, consulting Neurology after a stroke consult. MRI brain with no acute stroke. At the time of my evaluation, patient would open eyes and say his name repeatedly. Was called by RN stating that patient stopped saying his name and does not open his eyes as readily. Will be getting stat CT Head to evaluate for any changes on CT Head. Patient appeared to be having a more delirium episode, possibly as a contrast-induced encephalopathy, given during cardiac catheterization, but this is a diagnosis of exclusion. Head imaging so far unre markable. Patient was responding to commands, seizures lower on the differential but cannot rule out. RECOMMENDATIONS: 1. Routine EEG 2. IVF to clear out contrast 3. Stat CT Head 4. Neurology will continue to follow. 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, multiple TIAs, parkinson's disease, neuralgia, neuropathy bilateral hands, legs and feet, thoracic spondylosis, prostrate cancer with surgery/chemo and radiation, UTIs, kidney stones, L eye glaucoma, PVD/bilateral lower extremity edema, caratid stenosis, aemia, bronchitis, lower GI bleed, ANDREA with CPap History of Any Multi-Drug Resistant Organisms: None Reported Past Surgical History: Adenoidectomy, Back Surgery, Heart Catheterization With Stent, Hernia Repair, Joint Replacement, Orthopedic Surgery, Prostate Surgery, Tonsillectomy Additional Past Surgical History / Comment(s): PCI with stent in 2012, prostate biopsies, laser vaporization of prostrate, bilateral inquinal hernia repairs, EGD/colonoscopy, supraorbital percutaneous nerve stimulator trial, epidural injections, low back surgery, R foot hammer toe surgery, bilateral total knee replacements, bilateral cataract removals/lens implants, hemorrhoidectomy, R becky e of head vein biopsy Past Anesthesia/Blood Transfusion Reactions: No Reported Reaction Additional Past Anesthesia/Blood Transfusion Reaction / Comment(s): Pt has received blood in past without reaction. Date of Last Stent Placement:: 2012 Past Psychological History: No Psychological Hx Reported Additional Psychological History / Comment(s): Pt resides with his spouse. He uses a walker to ambulate. He drives. Smoking Status: Never smoker Past Alcohol Use History: None Reported Past Drug Use History: None Reported - Past Family History Brother(s) Additional Family Medical History / Comment(s): Patient has 3 brothers with no major medical problems. Sister(s) Additional Family Medical History / Comment(s): Patient has 3 sisters that are all alive. 2 have high blood pressure. One has diabetes and stroke and is 81 years old. And all have history of tremors. Son(s) Additional Family Medical History / Comment(s): Patient has 3 sons and one daughter with no major medical problems. Father Family Medical History: Myocardial Infarction (DC) Additional Family Medical History / Comment(s): Father at age 73 with h istory of Parkinson's disease, bowel cancer, bone cancer. Mother Family Medical History: Myocardial Infarction (DC) Additional Family Medical History / Comment(s): Mother at age 85 with history of hypertension and dementia. Medications and Allergies Home Medications Medication Instructions Recorded Confirmed Type RX: cloNIDine HCL [Catapres] 0.05 mg PO BID 05/21/14 06/18/19 History RX: Montelukast [Singulair] 10 mg PO HS 09/19/15 06/18/19 History RX: Latanoprost [Xalatan 0.005%] 1 drop BOTH EYES HS 08/20/16 06/18/19 History RX: Meloxicam [Mobic] 15 mg PO HS 08/20/16 06/18/19 History RX: Cholecalciferol [Vitamin D3 1,000 unit PO HS 03/05/17 06/18/19 History (25 Mcg = 1000 Iu)] RX: Clopidogrel [Plavix] 75 mg PO DAILY 03/05/17 06/18/19 History RX: Pramipexole [Mirapex] 1 mg PO BID 03/23/17 06/18/19 History RX: Hydrochlorothiazide 25 mg PO DAILY 02/07/18 06/18/19 History RX: levETIRAcetam [Keppra] 250 mg PO DAILY 02/07/18 06/18/19 History RX: levETIRAcetam [Keppra] 500 mg PO HS 02/07/18 06/18/19 History RX: Butalb/Acetaminophen/Caffeine 1 - 2 tab PO Q6H PRN MDD 6 TABS 07/14/18 06/18/19 History [Fioricet 50-325-40] RX: Ferrous Sulfate [Iron (65 MG 325 mg PO DAILY 07/14/18 06/18/19 History Elemental)] RX: Losartan Potassium 50 mg PO DAILY 07/14/18 06/18/19 History RX: Niacin 500 mg PO HS 07/14/18 06/18/19 History RX: Aspirin 325 mg PO DAILY tab 07/16/18 06/18/19 Rx Rosuvastatin Calcium [Crestor] 40 mg PO HS #30 tab 07/16/18 06/18/19 Rx Brimonidine Tartrate/Timolol 1 drop LEFT EYE BID 08/23/18 06/18/19 History [Combigan 0.2%-0.5% Eye Drops] RX: Carvedilol 25 mg PO BID 08/23/18 06/18/19 History RX: Omeprazole 40 mg PO HS 08/23/18 06/18/19 History RX: amLODIPine [Norvasc] 5 mg PO HS 08/23/18 06/18/19 History Methocarbamol [Robaxin-750] 750 mg PO QID PRN 06/18/19 06/18/19 History [facility] [place] 720mg 1 tab PO BID 06/18/19 06/18/19 History Ubidecarenone [Co Q-10] 200 mg PO DAILY 06/18/19 06/18/19 History Allergies Allergy/AdvReac Type Severity Reaction Status Date / Time metoclopramide [From Reglan] AdvReac SHAKES Verified 06/18/19 16:03 oxycodone HCl AdvReac Nausea & Verified 06/18/19 16:03 [From OxyContin] Vomiting Physical Examination - Vital Signs Vital Signs: Vital Signs Temp Pulse Pulse Resp BP BP Pulse Ox 06/20/19 17:00 61 14 148/82 06/20/19 16:30 67 16 163/99 06/20/19 16:00 97.6 F 59 L 12 188/103 06/20/19 15:00 60 12 165/113 06/20/19 14:05 97.5 F L 54 L 13 159/84 06/20/19 11:24 16 06/20/19 08:00 97.9 F 53 L 16 120/64 93 L 06/20/19 04:00 98.1 F 54 L 18 126/64 97 06/20/19 00:00 98.3 F 53 L 17 102/57 97 06/19/19 20:00 97.9 F 67 18 131/69 95 Intake and Output 06/20/19 06/20/19 06/20/19 06:59 14:59 22:59 Intake Total 580 355 276 Output Total 350 630 Balance 230 355 -354 Intake: IV 80 355 276 0.9 80 276 Intake, IV Titration 380 Amount Sodium Chloride 0.9% 1, 380 000 ml In Empty Bag 1 bag @ 1 ML/KG/HR 94.801 mls/ hr IV .[id number] ONE Rx#: [id number] Oral 120 Output: Urine 350 630 Other: Voiding Method Toilet Toilet # Voids 2 1 Weight 92 kg Results - Laboratory Findings CBC and BMP: 06/20/19 13:27 06/20/19 13:27 Abnormal Lab Findings: Abnormal Labs 06/18/19 06/18/19 06/18/19 15:35 15:35 15:35 RBC 4.23 L Hgb Hct 37.8 L Plt Count APTT 21.7 L Sodium 127 L Chloride 95 L Carbon Dioxide 19 L BUN Glucose 111 H POC Glucose (mg/dL) ALT 15 L Total Protein LDL Cholesterol, Calc HDL Cholesterol 06/19/19 06/19/19 06/19/19 03:45 03:46 03:46 RBC Hgb Hct Plt Count 129 L APTT 56.4 H Sodium Chloride Carbon Dioxide BUN Glucose POC Glucose (mg/dL) ALT Total Protein LDL Cholesterol, Calc 121 H HDL Cholesterol 61 H 06/20/19 06/20/19 06/20/19 12:35 13:27 13:27 RBC 3.98 L Hgb 12.4 L Hct 36.8 L Plt Count APTT 62.5 H Sodium Chloride Carbon Dioxide BUN Glucose POC Glucose (mg/dL) 120 H ALT Total Protein LDL Cholesterol, Calc HDL Cholesterol 06/20/19 13:27 RBC Hgb Hct Plt Count APTT Sodium 129 L Chloride 97 L Carbon Dioxide BUN 23 H Glucose 102 H POC Glucose (mg/dL) ALT 19 L Total Protein 6.2 L LDL Cholesterol, Calc HDL Cholesterol
--- NOTE | 2019-06-20 20:57 | CT ---
EXAMINATION TYPE: CT brain wo con DATE OF EXAM: 06/20/2019 HISTORY: ams CT DLP: 1129.4 mGycm. Automated Exposure Control for Dose Reduction was Utilized. TECHNIQUE: CT scan of the head is performed without contrast. COMPARISON: CT and MRI brain earlier today. FINDINGS: There is no acute intracranial hemorrhage or midline shift identified. There is diffuse v entricular and sulcal prominence consistent with diffuse age-related cerebral atrophy. There is low- attenuation in the periventricular white matter consistent with chronic small vessel ischemic change. Scleral calcifications bilateral globes redemonstrated. The paranasal sinuses are grossly clear. IMPRESSION: No acute intracranial hemorrhage or midline shift. There is mild to moderate diffuse ag e-related cerebral atrophy and advanced chronic small vessel ischemic change that are redemonstrated. No significant change from prior studies.
[2019-06-20] MEDS: MONTELUKAST 10 MG TAB PO SCH (21:39)
[2019-06-20] MEDS: PANTOPRAZOLE 40 MG TABLET PO SCH (21:39)
[2019-06-20] MEDS: amLODIPine 5 MG TAB PO SCH (21:39)
[2019-06-20] MEDS: levETIRAcetam IV 500 MG in SODIUM CHLORIDE 0.9% 100 ML IVPB SCH (21:44)
[2019-06-20] MEDS: LATANOPROST 0.005% OPHTH DROPS 2.5 ML BTL BOTH EYES SCH (21:55)
[2019-06-20 22:01] LABS: African American GFR (CKD) >90 (>60 ml/min/1.73 sqM); Anion Gap 11 mmol/L; Blood Urea Nitrogen 22 mg/dL (9-20); Carbon Dioxide 21 mmol/L (22-30); Chloride 98 mmol/L (98-107); Glucose 87 mg/dL (74-99); Magnesium 1.6 mg/dL (1.6-2.3); Phosphorus 2.3 mg/dL (2.5-4.5); Potassium 3.7 mmol/L (3.5-5.1); Sodium 130 mmol/L (137-145)
[2019-06-20] MEDS: ACETAMINOPHEN IV (For NPO) 1,000 MG in EMPTY BAG 1 BAG IVPB PRN (22:18)
[2019-06-20 22:24] LABS: HCT 34.4 % (39.0-53.0); HGB 12.1 gm/dL (13.0-17.5); MCHC 35.3 g/dL (31.0-37.0); MCV 90.6 fL (80.0-100.0); Mean Platelet Volume 5.9; RBC 3.79 m/uL (4.30-5.90); RDW 12.8 % (11.5-15.5); WBC 4.3 k/uL (3.8-10.6)
[2019-06-20] MEDS ORDERED: Potassium Replacement Protocol 1 EACH MISC MISCELLANE PRN (22:46)
[2019-06-20] MEDS ORDERED: Magnesium Replacement Protocol 1 EACH MISC MISCELLANE PRN (22:46)
[2019-06-20 22:51] LABS: Band Neutrophils % 42 %; Basophils # (M) 0.04 k/uL (0-0.2); Lymphocytes # (M) 0.09 k/uL (1.0-4.8); Monocytes # (M) 0.04 k/uL (0-1.0); Neutrophils % (M) 55 %; Nucleated Red Blood Cells 0 /100 WBC (0-0); Total Cells Counted 200
[2019-06-20 22:53] LABS: Toxic Vacuolation Present
[2019-06-20 22:55] LABS: Platelet Count 113 k/uL (150-450)
[2019-06-20] MEDS: POTASSIUM CHLORIDE 10 MEQ in WATER FOR INJECTION 1 100ML.BAG IVPB SCH (23:26)
[2019-06-20] MEDS: MAGNESIUM SULFATE-D5W PMX 1 GM in DEXTROSE/WATER 1 100ML.BAG IVPB SCH (23:35)
[2019-06-21 00:02] LABS: Bacteria,Urine Rare /hpf; Mucus,Urine Few /hpf; Squamous Epithelial Cell,Urine 3 /hpf (0-4)
[2019-06-21 00:03] LABS: Color,Urine Dark Brown; RBC,Urine >182 /hpf (0-5)
[2019-06-21 00:04] LABS: Appearance,Urine Turbid (Clear)
[2019-06-21] MEDS: MAGNESIUM SULFATE-D5W PMX 1 GM in DEXTROSE/WATER 1 100ML.BAG IVPB SCH (00:35)
[2019-06-21] MEDS: POTASSIUM CHLORIDE 10 MEQ in WATER FOR INJECTION 1 100ML.BAG IVPB SCH ×3 (00:38→10:01)
[2019-06-21 01:08] LABS: ABG Base Excess -0.5 mmol/L; ABG HCO3 23 mmol/L (21-25); ABG Oxygen Saturation 93.5 % (94-97); ABG PCO2 33 mmHg (35-45); ABG PH 7.46 (7.35-7.45); ABG PO2 63 mmHg (83-108); ABG TCO2 24 mmol/L (19-24); Allen Test Performed? Yes
[2019-06-21] MEDS: SODIUM CHLORIDE 0.9% 1,000 ML IV SCH ×4 (03:10→21:20)
[2019-06-21 05:45] LABS: HCT 37.6 % (39.0-53.0); HGB 12.2 gm/dL (13.0-17.5); MCH 29.9 pg (25.0-35.0); MCHC 32.6 g/dL (31.0-37.0); MCV 91.7 fL (80.0-100.0); Mean Platelet Volume 6.7; Platelet Count 120 k/uL (150-450); WBC 12.6 k/uL (3.8-10.6)
[2019-06-21 06:51] LABS: African American GFR (CKD) >90 (>60 ml/min/1.73 sqM); Anion Gap 9 mmol/L; Blood Urea Nitrogen 18 mg/dL (9-20); Calcium 8.6 mg/dL (8.4-10.2); Carbon Dioxide 22 mmol/L (22-30); Chloride 99 mmol/L (98-107); Cholesterol 189 mg/dL (<200); Glucose 93 mg/dL (74-99); HDL Cholesterol 61 mg/dL (40-60); LDL Cholesterol,Calculated 102 mg/dL (0-99); Magnesium 1.9 mg/dL (1.6-2.3); Phosphorus 3.4 mg/dL (2.5-4.5); Sodium 130 mmol/L (137-145); Triglycerides 131 mg/dL (<150)
[2019-06-21 06:52] LABS: Potassium 3.8 mmol/L (3.5-5.1)
[2019-06-21] MEDS: CARVEDILOL 12.5 MG TAB PO SCH ×2 (06:52→15:41)
[2019-06-21 07:20] LABS: Band Neutrophils % 43 %; Lymphocytes # (M) 0.13 k/uL (1.0-4.8); Monocytes # (M) 0.38 k/uL (0-1.0); Neutrophils % (M) 53 %; Nucleated Red Blood Cells 0 /100 WBC (0-0); Total Cells Counted 200
[2019-06-21 07:21] LABS: Anisocytosis (M) Present; Polychromasia Present
--- NOTE | 2019-06-21 08:24 | XR ---
EXAMINATION TYPE: XR chest 1V DATE OF EXAM: 06/21/2019 COMPARISON: 06/18/2019 HISTORY: Shortness of breath TECHNIQUE: Single frontal view of the chest is obtained. FINDINGS: Heart is enlarged. There is prominence of the upper mediastinum. Subsegmental areas of con solidation small effusion with interstitial pattern. IMPRESSION: 1. Bilateral lower lobe infiltrate or atelectasis with tiny effusion. Correlate for pneumonia. Otherw ise consider mild CHF.
[2019-06-21] MEDS: BRIMONIDINE TARTRATE 0.2% DROPS 5 ML BTL LEFT EYE SCH ×2 (08:35→20:30)
[2019-06-21] MEDS: TIMOLOL 0.5% OPHTH DROPS 5 ML BTL LEFT EYE SCH ×2 (08:35→20:30)
[2019-06-21] MEDS: ATORVASTATIN 80 MG TAB PO SCH (08:38)
[2019-06-21] MEDS: cloNIDine HCL 0.2 MG TAB PO SCH ×3 (08:39→20:40)
[2019-06-21] MEDS: LOSARTAN 50 MG TAB PO SCH (08:39)
[2019-06-21] MEDS: PRAMIPEXOLE 1 MG TAB PO SCH (08:39)
[2019-06-21] MEDS: HYDROCHLOROTHIAZIDE 25 MG TAB PO SCH (08:39)
[2019-06-21] MEDS: FERROUS SULFATE 325 MG TAB PO SCH (08:39)
[2019-06-21] MEDS: levETIRAcetam IV 250 MG in SODIUM CHLORIDE 0.9% 100 ML IVPB SCH (09:50)
--- NOTE | 2019-06-21 11:07 | P.PN ---
Progress Note - Text Progress Note Date: 06/21/19 SUBJECTIVE/INTERVAL EVENTS: Patient has become increasingly confused. During my eval yesterday, he would say his name repeatedly, but today, patient just moans but still says one or two phrases. PHYSICAL EXAMINATION: VITAL SIGNS: T 98.9 HR 80 RR 19 BP 124/77 O2 sat 95% on 3L of O2 via NC (spiked a fever to 102 around 10pm last night) GEN.: NAD HEENT: NCAT, sclera without icterus NECK: Supple SKIN AND EXTREMITIES: Warm to touch, no edema NEURO: MENTAL STATUS: Patient opens eyes to noxious stimuli briefly. Does not open eyes to verbal stimuli. CRANIAL NERVES II THROUGH XII: II: Pupils are equal and reactive to light symmetrically. Blinks to threat bilaterally. III, IV, : No ptosis. Does not track very well. Primary gaze with some exotropia. VII. No clear facial asymmetry. MOTOR: Normal bulk/tone. 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 SENSORY: Grimaces and withdraws to pain in all 4 extremities REFLEXES: 2+ in b/l UE. 1+ in b/l LE Toes are mute. No clonus. COORDINATION/GAIT: deferred DIAGNOSTIC TESTING: LABORATORY: 06/20/19: WBC 4.0 hemoglobin 12.4 platelet 181 PT 10.6 PTT 62.5 Sodium 129 potassium 5.1 chloride 97 bicarb 23 BUN 23 creatinine 0.80 glucose 102 AST 35 ALT 19 total cholesterol 197 LDL 121 HDL 61 triglycerides 75 06/21/19: WBC 12.6 mg 12.2 platelet 120 sodium 1:30 potassium 3.8 chloride 99 bicarb 22 BUN 18 creatinine 0.74 total cholesterol 189 LDL 102 HDL 61 triglycerides 131 TSH 1.040 urinalysis WBC >182 rare bacteria IMAGING: CT head without contrast 06/20/2019: Age-related atrophic and chronic small vessel ischemic change without acute intracranial process seen at this time. CT angiogram of the head and neck with contrast 06/20/2019: Estimated stenosis right ICA 60% and left ICA 40-50%. No significant abnormality of intracranial arteries. MRI brain without contrast 06/20/2019: No evidence of a recent infarct. Persistent mild to moderate diffuse cerebral atrophy with advanced chronic small vessel ischemic changes. No significant change from prior studies. Possible old R padilla radiata infarct. Will discuss with radiology tomorrow. EEG 2017: Normal findings. No seizures. EKG showing bradycardia ASSESSMENT: Mr. Olman Rivera is an 83 year-old man with significant list of PMHx listed below including prostate cancer, L facial droop in 2004, TIAs, Parkinson's disease, possible seizure/syncopal episodes, ANDREA, who presented to [facility] for chest pain, admitted on 06/18/19, underwent cardiac cath this morning at 11:30am, consulting Neurology after a stroke consult. MRI brain with no acute stroke. At the time of my evaluation, patient would open eyes and say his name repeatedly. Was called by RN stating that patient stopped saying his name and does not open his eyes as readily. Will be getting stat CT Head to evaluate for any changes on CT Head. Patient appeared to be having a more delirium episode, possibly as a contrast-induced encephalopathy, given during cardiac catheterization, but this is a diagnosis of exclusion. Head imaging so far unremarkable. Patient was responding to commands, seizures lower on the differential but cannot rule out. Repeat CT head with no changes. Patient spiked a fever and had leukocytosis along with a dirty UA. Pt started on ceftriaxone. Metabolic encephalopathy from infection. RECOMMENDATIONS: 1. Routine EEG prelim read slowing no seizures. 2. IVF to clear out contrast 3. Metabolic management per primary 4. Neurology will sign off at this time. Please feel free to contact Neurology again if with additional questions or concerns.
--- NOTE | 2019-06-21 12:19 | P.PN ---
Subjective Progress Note Date: 06/21/19 Principal diagnosis: Mental status change, exact etiology is not clear, possible CVA, possible metabolic encephalopathy. This is an 83-year-old patient with history of coronary artery disease, previous history of CVA/TIA, hypertension, dyslipidemia, upchucked of sleep apnea, Park inson's disease and peripheral vascular disease. Patient had reviewed his history of stenting of his RCA and a recent recatheterization 6 or 7 months ago related to his symptoms of unstable angina. His RCA stent was found to be patent, and redness of 50-60% disease in the second diagonal branch. Patient presents to the hospital on 06/18/2019 with complaints of chest pain, associated with shortness of breath. There were no acute ischemic changes on the EKG, chest x-ray was negative, most recent echocardiogram from June 2018 showed EF of 50-55%, moderate aortic valve sclerosis, mild aortic stenosis, mild TR. In view of patient's symptoms suggestive of unstable angina, patient underwent cardiac catheterization on the 06/20/2019, which showed stable coronary artery disease with patent stent in the RCA and mild to moderate disease in the diagonal coronary artery, and medical treatment was recommended. Following the catheterization, patient developed left-sided facial weakness, and expressive aphasia and confusion. But he is moving all 4 extremities. His initial NIH score was 8, subsequently increased to 13. Brain CT without contrast showed age-related atrophic and chronic small vessel disease without acute intracranial process. Angiography CT of the head and neck showed no significant abnormality, MRI of the brain showed no evidence of recent infarct and persistent mild to moderate diffuse cervical atrophy with advanced chronic small vessel ischemic changes. Patient was placed in the intensive care unit for close neurological monitoring. His symptoms of speech slurring, and expressive aphasia persists he is moving all 4 extremities, he states his name correctly, however when asked about his age he keeps repeating his name. At times he is having difficulty fol lowing command. Patient was not a candidate for thrombolytics related to his elevated PTT. Neurology consultation is pending Patient was reevaluated today on 06/21/2019, remains in the ICU, in no distress, but definitely confused. Patient would say his name repeatedly, does not follow any instructions. Spiked a fever last night, and his urine was noted to be infected with pyuria and bacteriuria, hence I started the patient today on Rocephin. Repeat CT of the brain showed no evidence of CVA. The neurologist on the case believes the patient had mostly metabolic encephalopathy could be rela nura to his contrast media or related to his urinary tract infection hence she is now off the case. His mental status is definitely worse today compared to yesterday. And I was approached by family members regarding possibly transferring the patient, I explained to them that this should be discussed with the admitting physician. In the meantime I will continue his IV fluid, started the patient on antibiotics in the form of Rocephin, and we'll continue to monitor the patient in the ICU. WBC count today is 12.6 hemoglobin is 12.2 ABG showed a pO2 of 63 pCO2 of 33 pH of 7.46. Sodium is noted to be a bit low at 130 otherwise his labs are unremarkable. Urinalysis was noted there is evidence of hematuria bacteriuria and pyuria. Chest x-ray showed mostly bibasilar atelectasis. Strongly doubt pneumonia as the patient has no clinical symptoms of cough or shortness of breath. His pO2 is marginal mostly because of atelectasis. Objective - Vital Signs Vital signs: Vital Signs Temp 98.9 F 06/21/19 08:00 Pulse 79 06/21/19 11:00 Resp 21 06/21/19 11:00 BP 130/69 06/21/19 11:00 Pulse Ox 95 06/21/19 11:00 Intake & Output 06/20/19 06/21/19 06/21/19 18:59 06:59 18:59 Intake Total 723 1800 825 Output Total 905 1535 220 Balance -182 265 605 Weight 93 kg Intake: IV 723 1800 825 0.9 368 Magnesium Sulfate-D5w Pmx 100 1 gm In Dextrose/Water 1 100ml.bag @ 100 mls/hr IVPB Q1H [facility] Rx#: [id number] Potassium Chloride 10 meq 100 200 In Water For Injection 1 100ml.bag @ 100 mls/hr IVPB Q1H [facility] Rx#: [id number] Sodium Chloride 0.9% 1, 1500 525 000 ml @ 125 mls/hr IV . Q8H [facility] Rx#:[id number] levETIRAcetam IV 250 mg 100 In Sodium Chloride 0.9% 100 ml @ 400 mls/hr IVPB DAILY [facility] Rx#:[id number] levETIRAcetam IV 500 mg 100 In Sodium Chloride 0.9% 100 ml @ 400 mls/hr IVPB HS [facility] Rx#:[id number] Output: Urine 905 1535 220 Other: Voiding Method Indwelling Catheter Indwelling Catheter Indwelling Catheter # Voids 1 - Exam GENERAL EXAM: Revealed 83-year-old white male, increasingly confused and repeats his name frequently and moans. HEENT: PERRLA, EOMI, no icterus. Dry mucous membranes, no neck masses, no JVD, no stridor. No evidence of proptosis. No facial asymmetry. CHEST: No chest wall deformity. Symmetrical expansion. LUNGS: Diminished breath sounds at the bases no crackles or rhonchi or wheezes.. CVS: Regular rate and rhythm, normal S1 and S2, no gallops, no murmurs, no rubs ABDOMEN: Soft, nontender. No hepatosplenomegaly, normal bowel sounds, no guarding or rigidity. EXTREMITIES: No clubbing, no edema, no cyanosis, 2+ pulses and upper and lower extremities. MUSCULOSKELETAL: Difficult to assess, patient has normal bulk and tone, spont aneous movement noted to be well in all 4 extremities. SPINE: No scoliosis or deformity SKIN: No rashes CENTRAL NERVOUS SYSTEM: Patient is calm, confused, does not follow any instructions, moans frequently, pupils are equally reactive to light, no evidence of proptosis, does not track very well, no evidence of facial asymmetry. No clear-cut evidence of weakness. - Labs CBC & Chem 7: 06/21/19 05:09 06/21/19 06:18 Labs: Abnormal Lab Results - Last 24 Hours (Table) 06/20/19 06/20/19 06/20/19 Range/Units 12:35 13:27 13:27 WBC (3.8-10.6) k/uL RBC 3.98 L (4.30-5.90) m/uL Hgb 12.4 L (13.0-17.5) gm/dL Hct 36.8 L (39.0-53.0) % Plt Count (150-450) k/uL Neutrophils # (Manual) (1.3-7.7) k/uL Lymphocytes # (Manual) (1.0-4.8) k/uL APTT 62.5 H (22.0-30.0) sec ABG pH (7.35-7.45) ABG pCO2 (35-45) mmHg ABG pO2 (83-108) mmHg ABG O2 Saturation (94-97) % Sodium (137-145) mmol/L Chloride (98-107) mmol/L Carbon Dioxide (22-30) mmol/L BUN (9-20) mg/dL Glucose (74-99) mg/dL POC Glucose (mg/dL) 120 H (75-99) mg/dL Phosphorus (2.5-4.5) mg/dL ALT (21-72) U/L Total Protein (6.3-8.2) g/dL LDL Cholesterol, Calc (0-99) mg/dL HDL Cholesterol (40-60) mg/dL Urine RBC (0-5) /hpf Urine WBC (0-5) /hpf Urine WBC Clumps (None) /hpf Urine Bacteria (None) /hpf Urine Mucus (None) /hpf 06/20/19 06/20/19 06/20/19 Range/Units 13:27 21:05 21:05 WBC (3.8-10.6) k/uL RBC 3.79 L (4.30-5.90) m/uL Hgb 12.1 L (13.0-17.5) gm/dL Hct 34.4 L (39.0-53.0) % Plt Count 113 L (150-450) k/uL Neutrophils # (Manual) (1.3-7.7) k/uL Lymphocytes # (Manual) 0.09 L (1.0-4.8) k/uL APTT (22.0-30.0) sec ABG pH (7.35-7.45) ABG pCO2 (35-45) mmHg ABG pO2 (83-108) mmHg ABG O2 Saturation (94-97) % Sodium 129 L 130 L (137-145) mmol/L Chloride 97 L (98-107) mmol/L Carbon Dioxide 21 L (22-30) mmol/L BUN 23 H 22 H (9-20) mg/dL Glucose 102 H (74-99) mg/dL POC Glucose (mg/dL) (75-99) mg/dL Phosphorus 2.3 L (2.5-4.5) mg/dL ALT 19 L (21-72) U/L Total Protein 6.2 L (6.3-8.2) g/dL LDL Cholesterol, Calc (0-99) mg/dL HDL Cholesterol (40-60) mg/dL Urine RBC (0-5) /hpf Urine WBC (0-5) /hpf Urine WBC Clumps (None) /hpf Urine Bacteria (None) /hpf Urine Mucus (None) /hpf 06/20/19 06/21/19 06/21/19 Range/Units 23:33 01:04 05:09 WBC 12.6 H (3.8-10.6) k/uL RBC 4.10 L (4.30-5.90) m/uL Hgb 12.2 L (13.0-17.5) gm/dL Hct 37.6 L (39.0-53.0) % Plt Count 120 L (150-450) k/uL Neutrophils # (Manual) 12.00 H (1.3-7.7) k/uL Lymphocytes # (Manual) 0.13 L (1.0-4.8) k/uL APTT (22.0-30.0) sec ABG pH 7.46 H (7.35-7.45) ABG pCO2 33 L (35-45) mmHg ABG pO2 63 L (83-108) mmHg ABG O2 Saturation 93.5 L (94-97) % Sodium (137-145) mmol/L Chloride (98-107) mmol/L Carbon Dioxide (22-30) mmol/L BUN (9-20) mg/dL Glucose (74-99) mg/dL POC Glucose (mg/dL) (75-99) mg/dL Phosphorus (2.5-4.5) mg/dL ALT (21-72) U/L Total Protein (6.3-8.2) g/dL LDL Cholesterol, Calc (0-99) mg/dL HDL Cholesterol (40-60) mg/dL Urine RBC >182 H (0-5) /hpf Urine WBC >182 H (0-5) /hpf Urine WBC Clumps Many H (None) /hpf Urine Bacteria Rare H (None) /hpf Urine Mucus Few H (None) /hpf 06/21/19 Range/Units 06:18 WBC (3.8-10.6) k/uL RBC (4.30-5.90) m/uL Hgb (13.0-17.5) gm/dL Hct (39.0-53.0) % Plt Count (150-450) k/uL Neutrophils # (Manual) (1.3-7.7) k/uL Lymphocytes # (Manual) (1.0-4.8) k/uL APTT (22.0-30.0) sec ABG pH (7.35-7.45) ABG pCO2 (35-45) mmHg ABG pO2 (83-108) mmHg ABG O2 Saturation (94-97) % Sodium 130 L (137-145) mmol/L Chloride (98-107) mmol/L Carbon Dioxide (22-30) mmol/L BUN (9-20) mg/dL Glucose (74-99) mg/dL POC Glucose (mg/dL) (75-99) mg/dL Phosphorus (2.5-4.5) mg/dL ALT (21-72) U/L Total Protein (6.3-8.2) g/dL LDL Cholesterol, Calc 102 H (0-99) mg/dL HDL Cholesterol 61 H (40-60) mg/dL Urine RBC (0-5) /hpf Urine WBC (0-5) /hpf Urine WBC Clumps (None) /hpf Urine Bacteria (None) /hpf Urine Mucus (None) /hpf Microbiology - Last 24 Hours (Table) 06/20/19 23:33 Urine Culture - Preliminary Urine,Voided Assessment and Plan Assessment: Impression: 1: Mental status change, the differential diagnoses includes CVA, metabolic encephalopathy could be related to contrast media could also be related to underlying urinary tract infection although the patient had no symptoms of UTI prior to presentation. However considering the patient spiked a temp last n ight, and considering his mental status change, I would recommend placing the patient empirically on Rocephin. Family is requesting possibly transferring the patient and I suggested that they discuss this issue with the admitting physician. Neurology signed off the case.#2. Symptoms of chest pain, patient underwent heart cath today on 06/20/2019, showing stable coronary artery disease #3. Coronary artery disease, with previous stenting to the RCA, status post cardiac catheterization. Postoperative day #1. #4. Previous history of CVA in 2005 with slight left facial droop, multiple TIA s #5. Hypertension #6. Dyslipidemia #7. Obstructive sleep apnea #8. Parkinson's disease #9. History of prostate cancer with surgical resection followed by chemotherapy and radiation #10. Carotid stenosis, CT angiography of the head and neck showed right ICA of 60% and left ICA of 40-50% #11. Never smoker #12. Previous history of lower GI bleeding Recommendation: Continue to monitor the patient in the ICU, started the patient on Rocephin, cultures of blood and urine were ordered, continue IV fluids, continue oxygen, encourage incentive spirometry, maintain aspiration precaution s, continue cardiac meds, and again the issue of transferring the patient is to be decided upon by the admitting physician and by the family. We'll continue to follow while in the ICU. Time with Patient: Less than 30
[2019-06-21] MEDS ORDERED: VANCOMYCIN IV PER PHARMACY 1 EACH MISC MISCELLANE SCH ×2 (12:45→13:00)
[2019-06-21] MEDS ORDERED: DEXAMETHASONE SOD PHOSPHATE 10 MG/ML 1 ML VIAL IV STA (12:53)
[2019-06-21] MEDS ORDERED: PIPERACILLIN-TAZOBACTAM 3.375 GM in SODIUM CHLORIDE 0.9% 100 ML IVPB SCH (13:00)
--- NOTE | 2019-06-21 13:53 | P.PCN ---
Date of Procedure: 06/21/19 Preoperative Diagnosis: rule out meningitis Procedure(s) Performed: Attempted Lumbar puncture Anesthesia: local Surgeon: Analy Rivera Description of Procedure: Attempted LP to rule out meningitis. Patient is confused at baseline, consent from family. Patient unable to stay still, multiple attempts were made, after localization with 5cc of 1% lidocaine, 20g needle was advanced at the L2-3 interspace, patient would not stay still, no blood was aspirated, no CSF was aspirated. Decision was made to abort, we may be able to do it under anesthesia and x ray in the procedure room tomorrow. I do not think it is safe to sedate the confused patient in the ICU setting. RN to communicate with the PCP. She will call senior national account manager anesthesia today to see if they want to proceed down that route.
[2019-06-21] MEDS: VANCOMYCIN 1,500 MG in SODIUM CHLORIDE 0.9% 250 ML IVPB SCH ×2 (14:30→21:20)
--- NOTE | 2019-06-21 15:07 | P.PN ---
Subjective Progress Note Date: 06/21/19 This is an 83-year-old male patient of Dr. Lawson and Dr. Byrd with a previous medical history significant for CAD status post stent placement of the RCA in 2010 while in [place]. He had a repeat catheterization 6-7 months after that secondary to unstable angina. Catheterization revealed a patent stent in the RCA with evidence of 50-60% disease in the second diagonal branch. Past medical history of hypertension and hypertensive cardiovascular disease with left ventricular hypertrophy, obstructive sleep apnea with CPAP, prostate cancer status post surgery, chemotherapy and radiation therapy, recurrent TIA, 70% carotid stenoses internal carotid artery follows with Dr. 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 He does have some weakness on the left lower extremity side which is chronic. Patient follows with a slab grinder in [place], [place], and was last seen 6 months ago. Patient complains of chest pain for the past 3 days. He denies any dizziness or lightheadedness. He has some mild shortness of breath and nausea. When he lies down this seems to help alleviate symptoms. Patient is also complaining of migraine headache which she states once is above the level #7 he is unable to tolerate it. He states he normally comes into the ER and receives morphine 5 mg and Zofran which will be ordered. Patient came into [facility] emergency center. Troponins negative 3, WBC 4.1, hemoglobin 13.1, platelets 129, sodium 127, potassium 4.7, creatinine 0.68, magnesium 1.8, LDL 121. EKG is sinus rhythm with no acute ST-T wave changes. Chest x-ray was negative for any acute cardiopulmonary process. Most recent echocardiogram obtained June 2018 reveals preserved LV systolic function with ejection fraction 50-55%, moderate aortic valve sclerosis, mild aortic stenosis with a mean gradient of 9 mmHg, mild TR and mild pulmonary hypertension with an RVSP of 27 mmHg. patient was placed on the observation unit and seen by cardiology with plan for heart catheterization tomorrow. 06/20 patient underwent cardiac cath today and was found to have stable coronary artery disease with patent stent in the RCA and mild to moderate disease in the diagonal. Patient was found to be incoherent with facial droop involving the left face so now after the cardiac cath. CTA was ordered that did not show any major vessel disease. Patient was not a Candidate for Thrombectomy. PT Levels Drawn If Less Than 30 in the next 25 minutes with the meet the criteria for TPA. Stat EEG and MRI has been ordered. Neurology consult placed for acute stroke. 06/21: The patient is seen in the intensive care unit. CAT scan of the brain to showed related atrophy and chronic small vessel ischemia without acute intracranial process. CT angiogram revealed right internal carotid artery 60% and left 40-50%. MRI of the brain showed no evidence of recent infarct. Persistent mild to moderate diffuse cerebral atrophy with advanced chronic small vessel ischemic change. No significant change. Possible old right padilla radiata infarct. He has been hemodynamically stable. His mental status has worsened from yesterday. He is now unable to follow commands. He is answering yes and mumbling to questions. He did have a fever up to 102.2. Blood culture and urine culture in progress. Patient did have a Olivo catheter placed which was very traumatic and initially drained a significant amount of blood. Urine output remains dark and hematuria. Patient was seen by neurology and has been signed off the case. Discussed case with Dr. Ramsey and with the patient's daughter and son-in-law at the bedside. We have added in consult for Dr. Ramsey. Ceftriaxone increased 2 g twice daily for possible meningitis/encephalitis. Acyclovir to be started IV by Dr. Ramsey. Initially planned for diagnostic lumbar puncture but because patient was on Plavix, last dose was on June 18 and LP has been postponed and will not be done until patient is off Plavix for a total of 7 days. At this time, we'll plan to monitor patient overnight and if no improvement of his mental status, anticipate transfer to tertiary care center.. Objective - Vital Signs Vital signs: Vital Signs Temp 98.9 F 06/21/19 08:00 Pulse 71 06/21/19 09:00 Resp 12 06/21/19 09:00 BP 125/82 06/21/19 09:00 Pulse Ox 97 06/21/19 09:00 Intake & Output 06/20/19 06/21/19 06/21/19 18:59 06:59 18:59 Intake Total 723 1800 475 Output Total 905 1535 130 Balance -182 265 345 Weight 93 kg Intake: IV 723 1800 475 0.9 368 Magnesium Sulfate-D5w Pmx 100 1 gm In Dextrose/Water 1 100ml.bag @ 100 mls/hr IVPB Q1H [facility] Rx#: [id number] Potassium Chloride 10 meq 100 100 In Water For Injection 1 100ml.bag @ 100 mls/hr IVPB Q1H [facility] Rx#: [id number] Sodium Chloride 0.9% 1, 1500 375 000 ml @ 125 mls/hr IV . Q8H [facility] Rx#:[id number] levETIRAcetam IV 500 mg 100 In Sodium Chloride 0.9% 100 ml @ 400 mls/hr IVPB HS [facility] Rx#:[id number] Output: Urine 905 1535 130 Other: Voiding Method Indwelling Catheter Indwelling Catheter # Voids 1 - Exam Review Of Systems: Could not be obtained due to mental status Physical exam: - Constitutional General appearance: cooperative, no acute distress, unable to answer questions - EENT Eyes: anicteric sclerae, PERRLA, normal appearance ENT: hearing grossly normal Unable to check for nuchal rigidity as patient is uncooperative. - Neck Neck: no lymphadenopathy, normal ROM, no other, no rigidity, no stridor, no thyromegaly - Respiratory Respiratory: bilateral: CTA, negative: diminished, dullness, rales, rhonchi - Cardiovascular Rhythm: regular Heart sounds: normal: S1, S2 Abnormal Heart Sounds: T/5 systolic murmur, no diastolic murmur, no rub, no S3 Gallop, no S4 Gallop, no click, no other - Gastrointestinal General gastrointestinal: normal bowel sounds, soft - Integumentary Integumentary: no rash - Neurologic Neurologic: Left facial droop nonfocal exam decreased comprehension and repetition patient unable to follow commands exam CNII-XII intact - Musculoskeletal Musculoskeletal: Strength equal bilaterally with slight decrease on the left side lower extremity - Psychiatric Psychiatric: A orientation could not be assessed as patient is unable to answer questions, no appropriate affect, patient is unable to follow any commands. Patient is mumbling and saying yes answer questions. Patient withdraws from [facility]. - Labs CBC & Chem 7: 06/21/19 05:09 06/21/19 06:18 Labs: Abnormal Lab Results - Last 24 Hours (Table) 10/01/19 10/01/19 10/01/19 Range/Units 12:35 13:27 13:27 WBC (3.8-10.6) k/uL RBC 3.98 L (4.30-5.90) m/uL Hgb 12.4 L (13.0-17.5) gm/dL Hct 36.8 L (39.0-53.0) % Plt Count (150-450) k/uL Neutrophils # (Manual) (1.3-7.7) k/uL Lymphocytes # (Manual) (1.0-4.8) k/uL APTT 62.5 H (22.0-30.0) sec ABG pH (7.35-7.45) ABG pCO2 (35-45) mmHg ABG pO2 (83-108) mmHg ABG O2 Saturation (94-97) % Sodium (137-145) mmol/L Chloride (98-107) mmol/L Carbon Dioxide (22-30) mmol/L BUN (9-20) mg/dL Glucose (74-99) mg/dL POC Glucose (mg/dL) 120 H (75-99) mg/dL Phosphorus (2.5-4.5) mg/dL ALT (21-72) U/L Total Protein (6.3-8.2) g/dL LDL Cholesterol, Calc (0-99) mg/dL HDL Cholesterol (40-60) mg/dL Urine RBC (0-5) /hpf Urine WBC (0-5) /hpf Urine WBC Clumps (None) /hpf Urine Bacteria (None) /hpf Urine Mucus (None) /hpf 06/20/19 06/20/19 06/20/19 Range/Units 13:27 21:05 21:05 WBC (3.8-10.6) k/uL RBC 3.79 L (4.30-5.90) m/uL Hgb 12.1 L (13.0-17.5) gm/dL Hct 34.4 L (39.0-53.0) % Plt Count 113 L (150-450) k/uL Neutrophils # (Manual) (1.3-7.7) k/uL Lymphocytes # (Manual) 0.09 L (1.0-4.8) k/uL APTT (22.0-30.0) sec ABG pH (7.35-7.45) ABG pCO2 (35-45) mmHg ABG pO2 (83-108) mmHg ABG O2 Saturation (94-97) % Sodium 129 L 130 L (137-145) mmol/L Chloride 97 L (98-107) mmol/L Carbon Dioxide 21 L (22-30) mmol/L BUN 23 H 22 H (9-20) mg/dL Glucose 102 H (74-99) mg/dL POC Glucose (mg/dL) (75-99) mg/dL Phosphorus 2.3 L (2.5-4.5) mg/dL ALT 19 L (21-72) U/L Total Protein 6.2 L (6.3-8.2) g/dL LDL Cholesterol, Calc (0-99) mg/dL HDL Cholesterol (40-60) mg/dL Urine RBC (0-5) /hpf Urine WBC (0-5) /hpf Urine WBC Clumps (None) /hpf Urine Bacteria (None) /hpf Urine Mucus (None) /hpf 06/20/19 06/21/19 06/21/19 Range/Units 23:33 01:04 05:09 WBC 12.6 H (3.8-10.6) k/uL RBC 4.10 L (4.30-5.90) m/uL Hgb 12.2 L (13.0-17.5) gm/dL Hct 37.6 L (39.0-53.0) % Plt Count 120 L (150-450) k/uL Neutrophils # (Manual) 12.00 H (1.3-7.7) k/uL Lymphocytes # (Manual) 0.13 L (1.0-4.8) k/uL APTT (22.0-30.0) sec ABG pH 7.46 H (7.35-7.45) ABG pCO2 33 L (35-45) mmHg ABG pO2 63 L (83-108) mmHg ABG O2 Saturation 93.5 L (94-97) % Sodium (137-145) mmol/L Chloride (98-107) mmol/L Carbon Dioxide (22-30) mmol/L BUN (9-20) mg/dL Glucose (74-99) mg/dL POC Glucose (mg/dL) (75-99) mg/dL Phosphorus (2.5-4.5) mg/dL ALT (21-72) U/L Total Protein (6.3-8.2) g/dL LDL Cholesterol, Calc (0-99) mg/dL HDL Cholesterol (40-60) mg/dL Urine RBC >182 H (0-5) /hpf Urine WBC >182 H (0-5) /hpf Urine WBC Clumps Many H (None) /hpf Urine Bacteria Rare H (None) /hpf Urine Mucus Few H (None) /hpf 06/21/19 Range/Units 06:18 WBC (3.8-10.6) k/uL RBC (4.30-5.90) m/uL Hgb (13.0-17.5) gm/dL Hct (39.0-53.0) % Plt Count (150-450) k/uL Neutrophils # (Manual) (1.3-7.7) k/uL Lymphocytes # (Manual) (1.0-4.8) k/uL APTT (22.0-30.0) sec ABG pH (7.35-7.45) ABG pCO2 (35-45) mmHg ABG pO2 (83-108) mmHg ABG O2 Saturation (94-97) % Sodium 130 L (137-145) mmol/L Chloride (98-107) mmol/L Carbon Dioxide (22-30) mmol/L BUN (9-20) mg/dL Glucose (74-99) mg/dL POC Glucose (mg/dL) (75-99) mg/dL Phosphorus (2.5-4.5) mg/dL ALT (21-72) U/L Total Protein (6.3-8.2) g/dL LDL Cholesterol, Calc 102 H (0-99) mg/dL HDL Cholesterol 61 H (40-60) mg/dL Urine RBC (0-5) /hpf Urine WBC (0-5) /hpf Urine WBC Clumps (None) /hpf Urine Bacteria (None) /hpf Urine Mucus (None) /hpf Assessment and Plan Plan: 1. Chest pain, possible unstable angina. Acute cardiac syndrome ruled out. Patient is scheduled for heart catheterization tomorrow, echocardiogram to be obtained. Continue aspirin 81 mg daily, Lipitor, Coreg. 2. Migraine headache, uncontrolled. Patient will be order for morphine 5 mg IV 1 and Zofran as needed for nausea. 3. Left facial droop with slurred speech and Dizziness. Cardiology has decreased clonidine with plan to wean him off this medication. CT head negative for acute bleed CTA negative for any thrombosis. Stat MRI EEG ordered a neurology consult placed. Seizure precautions to be taken. All testing has been negative so far. Concern for meningitis or encephalitis. Dr. Ramsey consult added. Patient is unable to go for lumbar puncture and to 7 days off Plavix which would be June 26. May entertain plan to transfer to tertiary care center. 4. History of coronary artery disease status post stent placement in RCA. Continue as in #1. 5. Hypertension, hypertensive cardio vascular disease with left ventricular hypertrophy. Continue Norvasc 5 mg at bedtime, Coreg 25 mg twice daily, hydrochlorothiazide 25 mg daily, losartan 50 mg daily, clonidine decreased to 0.2 mg 3 times daily. 6. Recurrent TIA with 70% carotid stenosis internal carotid artery following with Dr. Londono. Continue aspirin, Lipitor for secondary prevention. 7. Parkinson's disease, stable. Continue Keppra, Robaxin. 8. 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 9. Obstructive sleep apnea with CPAP 10. History of prostate cancer status post surgery and chemotherapy, radiation, stable. 11. Glaucoma. Continue eyedrops. 12 prognosis poor Impression and plan of care have been directed as dictated by the signing physician. Suly Gallo nurse practitioner acting as scribe for signing physician.
[2019-06-21 15:30] LABS: Hemoglobin A1C 5.7 % (4.0-6.0)
[2019-06-21] MEDS: ACYCLOVIR SODIUM 1,000 MG in SODIUM CHLORIDE 0.9% 250 ML IVPB SCH ×2 (16:25→23:59)
[2019-06-21 17:26] LABS: ABG HCO3 23 mmol/L (21-25); ABG Oxygen Saturation 94.3 % (94-97); ABG PCO2 30 mmHg (35-45); ABG PH 7.48 (7.35-7.45); ABG PO2 66 mmHg (83-108); ABG TCO2 24 mmol/L (19-24); Allen Test Performed? Yes
[2019-06-21] MEDS: ACETAMINOPHEN IV (For NPO) 1,000 MG in EMPTY BAG 1 BAG IVPB PRN (17:43)
[2019-06-21 18:00] LABS: Glucose,Whole Blood 108 mg/dL (75-99)
[2019-06-21] MEDS ORDERED: DEXAMETHASONE SOD PHOSPHATE 4 MG/ML 1 ML VIAL IV SCH (18:00)
[2019-06-21] MEDS: amLODIPine 5 MG TAB PO SCH (20:16)
[2019-06-21] MEDS: PANTOPRAZOLE 40 MG TABLET PO SCH (20:27)
[2019-06-21] MEDS: LATANOPROST 0.005% OPHTH DROPS 2.5 ML BTL BOTH EYES SCH (20:30)
[2019-06-21] MEDS: levETIRAcetam IV 500 MG in SODIUM CHLORIDE 0.9% 100 ML IVPB SCH (20:30)
[2019-06-21] MEDS ORDERED: SODIUM CHLORIDE 0.9% 500 ML 500 ML IV ONE (21:04)
--- NOTE | 2019-06-21 21:11 | US ---
EXAMINATION TYPE: US kidneys/renal and bladder DATE OF EXAM: 06/21/2019 COMPARISON: CT, US CLINICAL HISTORY: pyelonephritis. Pyelonephritis. Cannot obtain history from patient. Patient restles s. EXAM MEASUREMENTS: Right Kidney: 11.6 x 5.3 x 6.7 cm Left Kidney: 9.4 x 5.3 x 4.8 cm *Limited due to patient's restlessness and positioning. Right Kidney: Hypoechoic area seen laterally measurin.2 x 1.0 x 1.0 cm. Left Kidney: Limited evaluation. Patient turned slightly onto left side. ? Cortical thinning. Bladder: not fully distended. Limited evaluation. Patient restless. Bilateral Jets seen: no IMPRESSION: There is some asymmetric left renal atrophy. No evidence of renal obstruction. Small righ t renal cortical cyst.
--- NOTE | 2019-06-21 23:17 | PN ---
PROGRESS NOTE Mr. Rivera is a gentleman who underwent a cardiac cath yesterday which revealed no significant progression of disease and then had post postprocedure some neurological issues. A code stroke was called. The CT angiography does not reveal any obstructive disease of significance. An MRI and 2 CT scans were also nonrevealing. He continues to have altered mentation. He is unable to respond to questions, but moves all 4 extremities spontaneously, has no complaints. He is quite restless and does not seem to focus. It is very difficult to assess as to what exactly is going on and I am hoping that we will have more input from Neurology in this regard. A lumbar puncture is being planned for today. Cardiac-bagley is stable. No chest pain. Remains in sinus rhythm. Hemodynamically stable but patient is not responding to questions, does not communicate, is not oriented and seems to be restless. No motor deficits, but no purposeful movements. Vital signs are stable. Blood pressure is good. Remains in sinus rhythm. S1, S2 heard normally. Short systolic murmur noted. Lungs reveal bilateral air entry. Abdomen is soft. Lower extremities reveal diminished pulses. Central nervous system as per neurologist. MMODL / IJN: [id number] /
--- NOTE | 2019-06-21 23:48 | EEG ---
ELECTROENCEPHALOGRAM REPORT DATE OF PROCEDURE: 06/21/2019 ELECTROENCEPHALOGRAM (EEG) REPORT: TECHNIQUE: A routine 18-channel EEG was performed with video using the 10/20 international electrode placement system. HISTORY: Patient presented 3 days ago with chest pain. Patient had a heart catheterization yesterday and came back with stroke-type symptoms. CURRENT MEDICATIONS: 1. Aspirin. 2. Keppra. 3. Protonix. 4. Zofran. 5. Singulair. 6. Robaxin. STUDY DURATION: 26 minutes. FINDINGS: Please note that quality of this recording was extremely limited due to the presence of muscle artifact. The majority of this muscle artifact was seen over the left frontotemporal chains. Per assessment technician annotation, the patient was constantly moving his head side to side. BACKGROUND: The background activity consisted of unsustained 6-7 Hz rhythmic waveforms with some intermixed theta range slowing. A mild excess of beta frequency activity was noted. This is not epileptiform in nature and may in part be due to medication effect. ACTIVATION: Hyperventilation: Not performed. Photic Stimulation: No driving seen. Sleep: None. ABNORMALITIES: Diffuse synchronous and asynchronous 4 to 6 Hz slow wave activity was seen with superimposed faster frequencies. IMPRESSION: Significantly limited study, abnormal EEG. The diffuse theta range slowing mentioned above is not epileptiform in nature. In combination with the slow background, these findings indicate moderate diffuse cerebral dysfunction as may be seen in a toxometabolic encephalopathy. No definitive seizures were recorded. No definitive epileptiform activity was present. If clinical concern remains for a seizure disorder, would suggest a repeat study due to the limited quality of this study. MMODL / IJN: [id number] /
--- NOTE | 2019-06-21 23:59 | P.CONS ---
History of Present Illness - Reason for Consult Consult date: 06/21/19 Fever Requesting physician: Nida Landin - Chief Complaint Restless and mental status changes x 1 day - History of Present Illness Patient is 83-year-old male with a past medical history significant for coronary artery disease presenting to the ER at [facility] on June 18, 2019 apparently with not feeling well had chest pain patient apparently has not been feeling well for the last few days before the patient was brought in the hospital as per the history provided by the at the bedside symptom has been mostly of not feeling well no fever was recorded in the home patient did seem to have some chronic headache but apparently no recent worsening of his headache infection the patient did not complain of any abdominal pain no nausea no vomiting no diarrhea or any urinary symptoms with his chest pain symptom had the patient was unable to the hospital and the patient did have a cardiac catheterization done yesterday he was noticed to have a stable coronary disease and no stenting was done since yesterday the patient seemed to have shown some mental status changes and restlessness and started spiking a fever with fever of 102.2 F last night and 100.2 this afternoon patient was getting more restless the patient has been hemodynamically stable not requiring any pressor support and minimal supplemental oxygen he did have a positive UA neurology has been consulted with concern for possible UTI versus metabolic encephalopathy ID was consulted for further recommendation regarding his fever as he was also noticed to have elevated white count today of 12,000 he did have normal white count on presentation the hospital all of this information has been obtained from talking to the patient attending physician as the patient himself is unable to provide any reliable history, the patient chest x- ray completed which showed bilateral basal infiltrate with concern for possible atelectasis versus pneumonia pulmonary is already on the case. An LP was attempted by the anesthesia earlier this afternoon however the patient found to be too restless to complete the procedure Review of Systems Positive points mentioned in history of present illness complete review could not be obtained because of his underlying medical condition 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, multiple TIAs, parkinson's disease, neuralgia, neuropathy bilateral hands, legs and feet, thoracic spondylosis, prostrate cancer with surgery/chemo and radiation, UTIs, kidney stones, L eye glaucoma, PVD/bilateral lower e xtremity edema, caratid stenosis, aemia, bronchitis, lower GI bleed, ANDREA with CPap History of Any Multi-Drug Resistant Organisms: None Reported Past Surgical History: Adenoidectomy, Back Surgery, Heart Catheterization With Stent, Hernia Repair, Joint Replacement, Orthopedic Surgery, Prostate Surgery, Tonsillectomy Additional Past Surgical History / Comment(s): PCI with stent in 2013, prostate biopsies, laser vaporization of prostrate, bilateral inquinal hernia repairs, EGD/colonoscopy, supraorbital percutaneous nerve stimulator trial, epidural injections, low back surgery, R foot hammer toe surgery, bilateral total knee replacements, bilateral cataract removals/lens implants, hemorrhoidectomy, R side of head vein biopsy Past Anesthesia/Blood Transfusion Reactions: No Reported Reaction Additional Past Anesthesia/Blood Transfusion Reaction / Comm: Pt has received b lood in past without reaction. Date of Last Stent Placement:: 2012 Past Psychological History: No Psychological Hx Reported Additional Psychological History / Comment(s): Pt resides with his spouse. He uses a walker to ambulate. He drives. Smoking Status: Never smoker Past Alcohol Use History: None Reported Past Drug Use History: None Reported - Past Family History Brother(s) Additional Family Medical History / Comment(s): Patient has 3 brothers with no major medical problems. Sister(s) Additional Family Medical History / Comment(s): Patient has 3 sisters that are all alive. 2 have high blood pressure. One has diabetes and stroke and is 81 years old. And all have history of tremors. Son(s) Additional Family Medical History / Comment(s): Patient has 3 sons and one daughter with no major medical problems. Father Family Medical History: Myocardial Infarction ([place]) Additional Family Medical History / Comment(s): Father at age 73 with history of Parkinson's disease, bowel cancer, bone cancer. Mother Family Medical History: Myocardial Infarction ([place]) Additional Family Medical History / Comment(s): Mother at age 85 with history of hypertension and dementia. Medications and Allergies Home Medications Medication Instructions Recorded Confirmed Type cloNIDine HCL [Catapres] 0.05 mg PO BID 05/21/14 06/18/19 History Montelukast [Singulair] 10 mg PO HS 09/19/15 06/18/19 History Latanoprost [Xalatan 0.005%] 1 drop BOTH EYES HS 08/20/16 06/18/19 History Meloxicam [Mobic] 15 mg PO HS 08/20/16 06/18/19 History Cholecalciferol [Vitamin D3 (25 1,000 unit PO HS 03/05/17 06/18/19 History Mcg = 1000 Iu)] Clopidogrel [Plavix] 75 mg PO DAILY 03/05/17 06/18/19 History Pramipexole [Mirapex] 1 mg PO BID 03/23/17 06/18/19 History Hydrochlorothiazide 25 mg PO DAILY 02/07/18 06/18/19 History levETIRAcetam [Keppra] 250 mg PO DAILY 02/07/18 06/18/19 History levETIRAcetam [Keppra] 500 mg PO HS 02/07/18 06/18/19 History Butalb/Acetaminophen/Caffeine 1 - 2 tab PO Q6H PRN MDD 6 TABS 07/14/18 06/18/19 History [Fioricet 50-325-40] Ferrous Sulfate [Iron (65 MG 325 mg PO DAILY 07/14/18 06/18/19 History Elemental)] Losartan Potassium 50 mg PO DAILY 07/14/18 06/18/19 History Niacin 500 mg PO HS 07/14/18 06/18/19 History Aspirin 325 mg PO DAILY tab 07/16/18 06/18/19 Rx Rosuvastatin Calcium [Crestor] 40 mg PO HS #30 tab 07/16/18 06/18/19 Rx Brimonidine Tartrate/Timolol 1 drop LEFT EYE BID 08/23/18 06/18/19 History [Combigan 0.2%-0.5% Eye Drops] Carvedilol 25 mg PO BID 08/23/18 06/18/19 History Omeprazole 40 mg PO HS 08/23/18 06/18/19 History amLODIPine [Norvasc] 5 mg PO HS 08/23/18 06/18/19 History Methocarbamol [Robaxin-750] 750 mg PO QID PRN 06/18/19 06/18/19 History Physio [place] 720mg 1 tab PO BID 06/18/19 06/18/19 History Ubidecarenone [Co Q-10] 200 mg PO DAILY 06/18/19 06/18/19 History Allergies Allergy/AdvReac Type Severity Reaction Status Date / Time metoclopramide [From Reglan] AdvReac SHAKES Verified 06/18/19 16:03 oxycodone HCl AdvReac Nausea & Verified 06/18/19 16:03 [From OxyContin] Vomiting Physical Exam Vitals: Vital Signs Temp Pulse Resp BP Pulse Ox 06/21/19 14:00 80 16 142/117 97 06/21/19 13:30 77 20 145/88 96 06/21/19 13:00 79 22 147/76 95 06/21/19 12:30 75 12 139/98 98 06/21/19 12:00 100.2 F H 77 14 131/98 96 06/21/19 11:30 75 11 L 129/80 96 06/21/19 11:00 79 21 130/69 95 06/21/19 10:30 79 20 122/73 96 06/21/19 10:00 77 20 120/63 95 06/21/19 09:30 71 19 118/66 98 06/21/19 09:00 71 12 125/82 97 06/21/19 08:30 78 32 H 129/76 96 06/21/19 08:00 98.9 F 80 19 124/77 95 06/21/19 07:30 81 14 138/76 96 06/21/19 07:00 79 22 138/82 94 L 06/21/19 06:30 79 15 134/94 95 06/21/19 06:00 89 11 L 141/82 92 L 06/21/19 05:30 87 16 125/74 94 L 06/21/19 05:00 87 21 129/75 95 06/21/19 04:30 89 8 L 130/77 92 L 06/21/19 04:00 97.8 F 89 11 L 133/75 91 L 06/21/19 03:30 89 24 132/70 92 L 06/21/19 03:01 90 16 132/72 90 L 06/21/19 02:30 90 17 124/64 95 06/21/19 02:00 88 17 120/64 93 L 06/21/19 01:00 87 22 121/73 93 L 06/21/19 00:30 96 5 L 118/73 83 L 06/21/19 00:00 98.7 F 90 20 127/71 92 L 06/20/19 23:30 93 20 132/70 92 L 06/20/19 23:01 93 22 132/70 93 L 06/20/19 23:00 93 18 131/75 94 L 06/20/19 22:30 102 F H 92 20 136/86 91 L 06/20/19 22:00 93 24 119/73 94 L 06/20/19 21:30 96 20 130/80 92 L 06/20/19 21:00 96 18 110/78 93 L 06/20/19 20:30 138/84 06/20/19 20:00 102.2 F H 94 12 121/83 91 L 06/20/19 19:30 92 8 L 133/70 92 L 06/20/19 19:00 90 26 H 146/90 91 L 06/20/19 18:30 103 H 25 H 148/86 92 L 06/20/19 18:00 96 17 142/103 92 L 06/20/19 17:30 80 12 115/72 06/20/19 17:00 61 14 148/82 06/20/19 16:30 67 16 163/99 06/20/19 16:00 97.6 F 59 L 12 188/103 06/20/19 15:30 59 L 16 168/101 06/20/19 15:00 60 12 165/113 Intake and Output 06/20/19 06/21/19 06/21/19 22:59 06:59 14:59 Intake Total 968 1200 1050 Output Total 1730 710 370 Balance -762 490 680 Intake: IV 968 1200 1050 0.9 368 Magnesium Sulfate-D5w Pmx 100 1 gm In Dextrose/Water 1 100ml.bag @ 100 mls/hr IVPB Q1H [facility] Rx#: [id number] Potassium Chloride 10 meq 100 200 In Water For Injection 1 100ml.bag @ 100 mls/hr IVPB Q1H [facility] Rx#: [id number] Sodium Chloride 0.9% 1, 500 1000 750 000 ml @ 75 mls/hr IV . [id number] [facility] Rx#:[id number] levETIRAcetam IV 250 mg 100 In Sodium Chloride 0.9% 100 ml @ 400 mls/hr IVPB DAILY [facility] Rx#:[id number] levETIRAcetam IV 500 mg 100 In Sodium Chloride 0.9% 100 ml @ 400 mls/hr IVPB HS [facility] Rx#:[id number] Output: Urine 1730 710 370 Other: Voiding Method Indwelling Catheter Indwelling Catheter Indwelling Catheter Weight 93 kg GENERAL DESCRIPTION: Elderly male lying in bed, no distress. No tachypnea or accessory muscle of respiration use. HEENT: Shows Pallor , no scleral icterus. Oral mucous membrane is dry. No pharyngeal erythema or thrush NECK: Trachea central, no thyromegaly. LUNGS: Unlabored breathing. decreased breath sounds at bases. No wheeze or crackle. HEART: S1, S2, regular rate and rhythm. No loud murmur ABDOMEN: Soft, no tenderness , guarding or rigidity, no organomegaly EXTREMITIES: No edema of feet. SKIN: No rash, no masses palpable. NEUROLOGICAL: The patient is restless , some neck rigidity , orientation couldnot be determined Results CBC & Chem 7: 06/21/19 05:09 06/21/19 06:18 Labs: Abnormal Lab Results - Last 24 Hours (Table) 06/20/19 06/20/19 06/20/19 Range/Units 21:05 21:05 23:33 WBC (3.8-10.6) k/uL RBC 3.79 L (4.30-5.90) m/uL Hgb 12.1 L (13.0-17.5) gm/dL Hct 34.4 L (39.0-53.0) % Plt Count 113 L (150-450) k/uL Neutrophils # (Manual) (1.3-7.7) k/uL Lymphocytes # (Manual) 0.09 L (1.0-4.8) k/uL ABG pH (7.35-7.45) ABG pCO2 (35-45) mmHg ABG pO2 (83-108) mmHg ABG O2 Saturation (94-97) % Sodium 130 L (137-145) mmol/L Carbon Dioxide 21 L (22-30) mmol/L BUN 22 H (9-20) mg/dL Phosphorus 2.3 L (2.5-4.5) mg/dL LDL Cholesterol, Calc (0-99) mg/dL HDL Cholesterol (40-60) mg/dL Urine RBC >182 H (0-5) /hpf Urine WBC >182 H (0-5) /hpf Urine WBC Clumps Many H (None) /hpf Urine Bacteria Rare H (None) /hpf Urine Mucus Few H (None) /hpf 06/21/19 06/21/19 06/21/19 Range/Units 01:04 05:09 06:18 WBC 12.6 H (3.8-10.6) k/uL RBC 4.10 L (4.30-5.90) m/uL Hgb 12.2 L (13.0-17.5) gm/dL Hct 37.6 L (39.0-53.0) % Plt Count 120 L (150-450) k/uL Neutrophils # (Manual) 12.00 H (1.3-7.7) k/uL Lymphocytes # (Manual) 0.13 L (1.0-4.8) k/uL ABG pH 7.46 H (7.35-7.45) ABG pCO2 33 L (35-45) mmHg ABG pO2 63 L (83-108) mmHg ABG O2 Saturation 93.5 L (94-97) % Sodium 130 L (137-145) mmol/L Carbon Dioxide (22-30) mmol/L BUN (9-20) mg/dL Phosphorus (2.5-4.5) mg/dL LDL Cholesterol, Calc 102 H (0-99) mg/dL HDL Cholesterol 61 H (40-60) mg/dL Urine RBC (0-5) /hpf Urine WBC (0-5) /hpf Urine WBC Clumps (None) /hpf Urine Bacteria (None) /hpf Urine Mucus (None) /hpf Microbiology - Last 24 Hours (Table) 06/20/19 23:33 Urine Culture - Preliminary Urine,Voided Assessment and Plan Assessment: 1-patient with sepsis in this patient who did have a fever of 102 F the patient also have elevated white count meeting criteria for sepsis in this patient predominately symptom has been restlessness with concern for possible encephalitis as there is no clear history of any significant urinary symptoms before the patient was brought to the hospital or pulmonary symptoms suspicious for underlying pneumonia and his abdomen was soft with clinical examination and no evidence of any cellulitis. (1) Sepsis Current Visit: Yes Status: Acute Code(s): A41.9 - SEPSIS, UNSPECIFIED ORGANISM SNOMED Code(s): 60934357 (2) Encephalitis Current Visit: Yes Status: Acute Code(s): G04.90 - ENCEPHALITIS AND ENCEPHALOMYELITIS, UNSPECIFIED SNOMED Code(s): 89214796 Plan: 1-patient will need a lumbar puncture to obtain a CSF for glucose protein cell count differential Gram stain culture and HSV DNA by PCR 2-we will also obtain HSV 1 and 2 serology 3-empirically start the patient on acyclovir 10 mg/kg every 8 hours in addition to Rocephin and vancomycin already started by the admitting team We will follow on clinical condition and cultures to further adjust medication if needed Thank you for this consultation will follow this patient along with you Time with Patient: Greater than 30
[2019-06-22] MEDS: ACETAMINOPHEN IV (For NPO) 1,000 MG in EMPTY BAG 1 BAG IVPB PRN ×2 (00:25→09:15)
[2019-06-22 05:26] LABS: Basophils % (A) 0 %; Eosinophils % (A) 0 %; HCT 29.8 % (39.0-53.0); HGB 10.5 gm/dL (13.0-17.5); Lymphocytes # (A) 0.6 k/uL (1.0-4.8); Lymphocytes % (A) 4 %; MCH 32.3 pg (25.0-35.0); MCHC 35.3 g/dL (31.0-37.0); MCV 91.5 fL (80.0-100.0); Mean Platelet Volume 5.8; Monocytes # (A) 0.5 k/uL (0-1.0); Monocytes % (A) 4 %; Neutrophils # (A) 13.9 k/uL (1.3-7.7); Neutrophils % (A) 91 %; Platelet Count 125 k/uL (150-450); RBC 3.26 m/uL (4.30-5.90); RDW 12.8 % (11.5-15.5); WBC 15.2 k/uL (3.8-10.6)
[2019-06-22 05:48] LABS: African American GFR (CKD) >90 (>60 ml/min/1.73 sqM); Anion Gap 7 mmol/L; Blood Urea Nitrogen 21 mg/dL (9-20); Calcium 8.2 mg/dL (8.4-10.2); Carbon Dioxide 21 mmol/L (22-30); Chloride 102 mmol/L (98-107); Glucose 117 mg/dL (74-99); Potassium 3.8 mmol/L (3.5-5.1); Sodium 130 mmol/L (137-145)
[2019-06-22] MEDS: CARVEDILOL 12.5 MG TAB PO SCH ×2 (07:09→18:22)
[2019-06-22] MEDS: ASPIRIN 81 MG PO SCH ×2 (08:23→09:59)
[2019-06-22] MEDS: FERROUS SULFATE 325 MG TAB PO SCH ×2 (08:23→09:59)
[2019-06-22] MEDS: ATORVASTATIN 80 MG TAB PO SCH ×2 (08:23→09:59)
[2019-06-22] MEDS: cloNIDine HCL 0.2 MG TAB PO SCH ×3 (08:23→20:58)
[2019-06-22] MEDS: LOSARTAN 50 MG TAB PO SCH ×2 (08:24→09:59)
[2019-06-22] MEDS: HYDROCHLOROTHIAZIDE 25 MG TAB PO SCH (08:24)
[2019-06-22] MEDS: levETIRAcetam IV 250 MG in SODIUM CHLORIDE 0.9% 100 ML IVPB SCH (08:33)
[2019-06-22] MEDS: ACYCLOVIR SODIUM 1,000 MG in SODIUM CHLORIDE 0.9% 250 ML IVPB SCH ×3 (08:33→23:38)
[2019-06-22] MEDS: BRIMONIDINE TARTRATE 0.2% DROPS 5 ML BTL LEFT EYE SCH ×2 (08:41→20:56)
[2019-06-22] MEDS: TIMOLOL 0.5% OPHTH DROPS 5 ML BTL LEFT EYE SCH ×2 (08:41→20:56)
--- NOTE | 2019-06-22 09:05 | PN ---
PROGRESS NOTE Mr. Rivera remains in sinus rhythm, hemodynamically stable. This gentleman had some neurological issues, altered mentation, but this morning he seems to answer questions. He seems somewhat more appropriate, hemodynamically stable, making urine. Vital signs are stable, no JVD. S1-S2 heard normally, short systolic murmur noted. Lungs are clear. Abdomen and lower extremity exam unchanged. Neurologically, patient is moving all 4 extremities. He is also communicating a little bit better than he did yesterday. We will continue to monitor him closely. MMODL / IJN: [id number] /
[2019-06-22] MEDS: VANCOMYCIN 1,500 MG in SODIUM CHLORIDE 0.9% 250 ML IVPB SCH ×2 (09:59→20:56)
--- NOTE | 2019-06-22 11:51 | P.PN ---
Subjective Progress Note Date: 06/22/19 Principal diagnosis: Mental status change, most likely secondary to contrast induced encephalopathy. This is an 83-year-old patient with history of coronary artery disease, previous history of CVA/TIA, hypertension, dyslipidemia, upchucked of sleep apnea, Parkinson's disease and peripheral vascular disease. Patient had reviewed his history of stenting of his RCA and a recent recatheterization 6 or 7 months ago related to his symptoms of unstable angina. His RCA stent was found to be patent, and redness of 50-60% disease in the second diagonal branch. Patient presents to the hospital on 06/18/2019 with complaints of chest pain, associated with shortness of breath. There were no acute ischemic changes on the EKG, chest x-ray was negative, most recent echocardiogram from June 2018 showed EF of 50-55%, moderate aortic valve sclerosis, mild aortic stenosis, mild TR. In view of patient's symptoms suggestive of unstable angina, patient underwent cardiac catheterization on the 06/20/2019, which showed stable coronary artery disease with patent stent in the RCA and mild to moderate disease in the diagonal coronary artery, and medical treatment was recommended. Following the catheterization, patient developed left-sided facial weakness, and expressive aphasia and confusion. But he is moving all 4 extremities. His initial NIH score was 8, subsequently increased to 13. Brain CT without contrast showed age-related atrophic and chronic small vessel disease without acute intracranial process. Angiography CT of the head and neck showed no significant abnormality, MRI of the brain showed no evidence of recent infarct and persistent mild to moderate diffuse cervical atrophy with advanced chronic small vessel ischemic changes. Patient was placed in the intensive care unit for close neurological monitoring. His symptoms of speech slurring, and expressive aphasia persists he is moving all 4 extremities, he states his name correctly, however when asked about his age he keeps repeating his name. At times he is having difficulty following command. Patient was not a candidate for thrombolytics related to his elevated PTT. Neurology consultation is pending Patient was reevaluated today on 06/21/2019, remains in the ICU, in no distress, but definitely confused. Patient would say his name repeatedly, does not follow any instructions. Spiked a fever last night, and his urine was noted to be infected with pyuria and bacteriuria, hence I started the patient today on Rocephin. Repeat CT of the brain showed no evidence of CVA. The neurologist on the case believes the patient had mostly metabolic encephalopathy could be related to his contrast media or related to his urinary tract infection hence she is now off the case. His mental status is definitely worse today compared to yesterday. And I was approached by family members regarding possibly transferring the patient, I explained to them that this should be discussed with the admitting physician. In the meantime I will continue his IV fluid, started the patient on antibiotics in the form of Rocephin, and we'll continue to monitor the patient in the ICU. WBC count today is 12.6 hemoglobin is 12.2 ABG showed a pO2 of 63 pCO2 of 33 pH of 7.46. Sodium is noted to be a bit low at 1 30 otherwise his labs are unremarkable. Urinalysis was noted there is evidence of hematuria bacteriuria and pyuria. Chest x-ray showed mostly bibasilar atelectasis. Strongly doubt pneumonia as the patient has no clinical symptoms of cough or shortness of breath. His pO2 is marginal mostly because of atelectasis. Patient was reevaluated today on 06/22/2019, remains in the ICU, had intermittent episodes of fevers, lumbar puncture was attempted yesterday, but was not successful. Neurologically the patient is making a significant improvement, he is being treated for a urinary tract infection, he is also being treated by infectious disease for presumptive sepsis and encephalitis. He is empirically on acyclovir, he is also on Rocephin and vancomycin. Today the patient is more awake, he is more responsive, he knew his name, knew exactly what he was, he even a knew the name of the president. This is a dramatic improvement compared to 24 hours ago, hence I believe the patient most likely had contrast-induced encephalopathy. Blood cultures are pending. Urine cultures are pending. Th roat culture was positive for group A streptococcus, most likely streptococcus. pyogenes, questionable clinical significance . Labs were reviewed patient had WBC count of 15.2 hemoglobin of 10.5. Sodium remains low at 130, renal profile is normal. Patient had a temp of 101 yesterday, his temperature today is 98.2. Objective - Vital Signs Vital signs: Vital Signs Temp 98.2 F 06/22/19 08:00 Pulse 64 06/22/19 11:00 Resp 17 06/22/19 11:00 BP 131/79 06/22/19 11:00 Pulse Ox 98 06/22/19 11:00 Intake & Output 06/21/19 06/22/19 06/22/19 18:59 06:59 18:59 Intake Total 2150 2575 1150 Output Total 550 725 365 Balance 1600 1850 785 Weight 92.6 kg Intake: IV 2150 2575 1150 0.9 1500 575 ACETAMINOPHEN IV (For NPO 100 100 100 ) 1,000 mg In Empty Bag 1 bag @ 400 mls/hr IVPB Q6H PRN Rx#:[id number] Acyclovir Sodium 1,000 mg 250 250 250 In Sodium Chloride 0.9% 250 ml @ 270 mls/hr IVPB Q8HR [facility] Rx#:[id number] Potassium Chloride 10 meq 200 In Water For Injection 1 100ml.bag @ 100 mls/hr IVPB Q1H [facility] Rx#: [id number] Sodium Chloride 0.9% 1, 1050 275 000 ml @ 100 mls/hr IV . Q10H [facility] Rx#:[id number] Vancomycin 1,500 mg In 250 250 125 Sodium Chloride 0.9% 250 ml @ 125 mls/hr IVPB Q12HR [facility] Rx#:[id number] cefTRIAXone 1 gm In 200 100 Sodium Chloride 0.9% 50 ml @ 100 mls/hr IVPB ONCE STA Rx#:[id number] levETIRAcetam IV 250 mg 100 In Sodium Chloride 0.9% 100 ml @ 400 mls/hr IVPB DAILY [facility] Rx#:[id number] levETIRAcetam IV 500 mg 100 100 In Sodium Chloride 0.9% 100 ml @ 400 mls/hr IVPB HS [facility]I Rx#:[id number] Output: Urine 550 725 365 Other: Voiding Method Indwelling Catheter Indwelling Catheter Indwelling Catheter - Exam GENERAL EXAM: Revealed 83-year-old white male, slightly confused, more oriented to place and person compared to yesterday. HEENT: PERRLA, EOMI, no icterus. Dry mucous membranes, no neck masses, no JVD, no stridor. No evidence of proptosis. No facial asymmetry. CHEST: No chest wall deformity. Symmetrical expansion. LUNGS: Diminished breath sounds at the bases no crackles or rhonchi or wheezes.. CVS: Regular rate and rhythm, normal S1 and S2, no gallops, no murmurs, no rubs ABDOMEN: Soft, nontender. No hepatosplenomegaly, normal bowel sounds, no guarding or rigidity. EXTREMITIES: No clubbing, no edema, no cyanosis, 2+ pulses and upper and lower extremities. MUSCULOSKELETAL: normal bulk and tone, spontaneous movement noted to be well in all 4 extremities. SPINE: No scoliosis or deformity SKIN: No rashes CENTRAL NERVOUS SYSTEM: Patient is calm, more awake today, follows all simple instructions, reviewed the name of the present near where he was, and his mentation is significantly improved compared to the last 2 days. - Labs CBC & Chem 7: 06/22/19 05:06 06/22/19 05:06 Labs: Abnormal Lab Results - Last 24 Hours (Table) 06/21/19 06/21/19 06/21/19 Range/Units 15:55 15:55 17:24 WBC (3.8-10.6) k/uL RBC (4.30-5.90) m/uL Hgb (13.0-17.5) gm/dL Hct (39.0-53.0) % Plt Count (150-450) k/uL Neutrophils # (1.3-7.7) k/uL Lymphocytes # (1.0-4.8) k/uL ABG pH 7.48 H (7.35-7.45) ABG pCO2 30 L (35-45) mmHg ABG pO2 66 L (83-108) mmHg Sodium (137-145) mmol/L Carbon Dioxide (22-30) mmol/L BUN (9-20) mg/dL Creatinine (0.66-1.25) mg/dL Glucose (74-99) mg/dL POC Glucose (mg/dL) (75-99) mg/dL Calcium (8.4-10.2) mg/dL C-Reactive Protein 172.8 H (<10.0) mg/L HSV I IgG Interpret POSITIVE H (NEGATIVE) 06/21/19 06/22/19 06/22/19 Range/Units 17:58 05:06 05:06 WBC 15.2 H (3.8-10.6) k/uL RBC 3.26 L (4.30-5.90) m/uL Hgb 10.5 L (13.0-17.5) gm/dL Hct 29.8 L (39.0-53.0) % Plt Count 125 L (150-450) k/uL Neutrophils # 13.9 H (1.3-7.7) k/uL Lymphocytes # 0.6 L (1.0-4.8) k/uL ABG pH (7.35-7.45) ABG pCO2 (35-45) mmHg ABG pO2 (83-108) mmHg Sodium 130 L (137-145) mmol/L Carbon Dioxide 21 L (22-30) mmol/L BUN 21 H (9-20) mg/dL Creatinine 0.62 L (0.66-1.25) mg/dL Glucose 117 H (74-99) mg/dL POC Glucose (mg/dL) 108 H (75-99) mg/dL Calcium 8.2 L (8.4-10.2) mg/dL C-Reactive Protein (<10.0) mg/L HSV I IgG Interpret (NEGATIVE) Microbiology - Last 24 Hours (Table) 06/20/19 21:05 Blood Culture - Preliminary Blood No Growth after 24 hours 06/21/19 14:40 Group A Strep Throat Culture - Preliminary Throat 06/20/19 23:33 Urine Culture - Preliminary Urine,Voided Assessment and Plan Assessment: Impression: 1: Mental status change, most likely secondary to contrast induced encephalopathy although the possibility of sepsis, urinary tract infection, and encephalitis is not entirely ruled out. But considering the improvement within 48 hours, this is more classic of contrast induced encephalopathy. This is usually rare, but very well documented in the literature. #3. Coronary artery disease, with previous stenting to the RCA, status post cardiac catheterization. #4. Previous history of CVA in 2004 with slight left facial droop, multiple TIAs #5. Hypertension #6. Dyslipidemia #7. Obstructive sleep apnea #8. Parkinson's disease #9. History of prostate cancer with surgical resection followed by chemotherapy and radiation #10. Carotid stenosis, CT angiography of the head and neck showed right ICA of 60% and left ICA of 40-50% #11. Never smoker #12. Previous history of lower GI bleeding Recommendation: Continue to monitor the patient in the ICU, continue antibiotics and antiviral therapy, I think lumbar puncture should be performed, and if negative then we could discontinue most of the antibiotics except for the treatment of urinary tract infection. In the meantime continue hydration, continue Tylenol for fevers, and continue to monitor closely. Had a long discussion with his family at bedside. Again the patient made significant improvement today compared to the last 2 days. Time with Patient: Less than 30
[2019-06-22] MEDS: KETOROLAC 30 MG/ML 1 ML VIAL IVP SCH ×3 (13:50→23:12)
--- NOTE | 2019-06-22 14:17 | P.PN ---
Subjective Progress Note Date: 06/22/19 This is an 83-year-old male patient of Dr. Lawson and Dr. Byrd with a previous medical history significant for CAD status post stent placement of the RCA in 2010 while in [place]. He had a repeat catheterization 6-7 months after that secondary to unstable angina. Catheterization revealed a patent stent in the RCA with evidence of 50-60% disease in the second diagonal branch. Past medical history of hypertension and hypertensive cardiovascular disease with left ventricular hypertrophy, obstructive sleep apnea with CPAP, prostate cancer status post surgery, chemotherapy and radiation therapy, recurrent TIA, 70% carotid stenoses internal carotid artery follows with Dr. 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 He does have some weakness on the left lower extremity side which is chronic. Patient follows with a invoicing specialist in [place], [place], and was last seen 6 months ago. Patient complains of chest pain for the past 3 days. He denies any dizziness or lightheadedness. He has some mild shortness of breath and nausea. When he lies down this seems to help alleviate symptoms. Patient is also complaining of migraine headache which she states once is above the level #7 he is unable to tolerate it. He states he normally comes into the ER and receives morphine 5 mg and Zofran which will be ordered. Patient came into [facility] emergency center. Troponins negative 3, WBC 4.1, hemoglobin 13.1, platelets 129, sodium 127, potassium 4.7, creatinine 0.68, magnesium 1.8, LDL 121. EKG is sinus rhythm with no acute ST-T wave changes. Chest x-ray was negative for any acute cardiopulmonary process. Most recent echocardiogram obtained June 2018 reveals preserved LV systolic function with ejection fraction 50-55%, moderate aortic valve sclerosis, mild aortic stenosis with a mean gradient of 9 mmHg, mild TR and mild pulmonary hypertension with an RVSP of 27 mmHg. patient was placed on the observation unit and seen by cardiology with plan for heart catheterization tomorrow. 06/20 patient underwent cardiac cath today and was found to have stable coronary artery disease with patent stent in the RCA and mild to moderate disease in the diagonal. Patient was found to be incoherent with facial droop involving the left face so now after the cardiac cath. CTA was ordered that did not show any major vessel disease. Patient was not a Candidate for Thrombectomy. PT Levels Drawn If Less Than 30 in the next 25 minutes with the meet the criteria for TPA. Stat EEG and MRI has been ordered. Neurology consult placed for acute stroke. 06/21: The patient is seen in the intensive care unit. CAT scan of the brain to showed related atrophy and chronic small vessel ischemia without acute intracranial process. CT angiogram revealed right internal carotid artery 60% and left 40-50%. MRI of the brain showed no evidence of recent infarct. Persistent mild to moderate diffuse cerebral atrophy with advanced chronic small vessel ischemic change. No significant change. Possible old right padilla radiata infarct. He has been hemodynamically stable. His mental status has worsened from yesterday. He is now unable to follow commands. He is answering yes and mumbling to questions. He did have a fever up to 102.2. Blood culture and urine culture in progress. Patient did have a Olivo catheter placed which was very traumatic and initially drained a significant amount of blood. Urine output remains dark and hematuria. Patient was seen by neurology and has been signed off the case. Discussed case with Dr. Ramsey and with the patient's daughter and son-in-law at the bedside. We have added in consult for Dr. Ramsey. Ceftriaxone increased 2 g twice daily for possible meningitis/encephalitis. Acyclovir to be started IV by Dr. Ramsey. Initially planned for diagnostic lumbar puncture but because patient was on Plavix, last dose was on June 18 and LP has been postponed and will not be done until patient is off Plavix for a total of 7 days. At this time, we'll plan to monitor patient overnight and if no improvement of his mental status, anticipate transfer to tertiary care center.. 06/22: EEG revealed limited study abnormal consistent with toxo metabolic encephalopathy. Patient remains in the intensive care unit. His mental status is significantly improved this morning. Patient is able to answer to person pl moy. Last fever was documented at 8 PM yesterday. Heart rate is in the 60s and blood pressure 131/79, pulse ox 90% on 4 L nasal cannula. WBC is 15.2, hemoglobin 10.5 and platelet count 125. Sodium 1:30, potassium 3.8, chloride 102, CO2 21, BUN 21 and creatinine 0.62. Blood sugar 117. C-reactive protein was 172. TSH 1.040. Influenza testing was negative. HSV I IgG was positive. Group a strep rapid screen was negative. Blood cultures no growth after 24 hours. Urine cultures gram-negative bacilli. Group A strep throat culture is in process. Patient is currently on acyclovir, ceftriaxone at 2 g every 12 hours and vancomycin. Patient continues to complain of severe headache for whi ch Toradol has been added as scheduled. Objective - Vital Signs Vital signs: Vital Signs Temp 98.2 F 06/22/19 08:00 Pulse 64 06/22/19 11:00 Resp 17 06/22/19 11:00 BP 131/79 06/22/19 11:00 Pulse Ox 98 06/22/19 11:00 Intake & Output 06/21/19 06/22/19 06/22/19 18:59 06:59 18:59 Intake Total 2150 2575 1150 Output Total 550 725 365 Balance 1600 1850 785 Weight 92.6 kg Intake: IV 2150 2575 1150 0.9 1500 575 ACETAMINOPHEN IV (For NPO 100 100 100 ) 1,000 mg In Empty Bag 1 bag @ 400 mls/hr IVPB Q6H PRN Rx#:[id number] Acyclovir Sodium 1,000 mg 250 250 250 In Sodium Chloride 0.9% 250 ml @ 270 mls/hr IVPB Q8HR MOI Rx#:[id number] Potassium Chloride 10 meq 200 In Water For Injection 1 100ml.bag @ 100 mls/hr IVPB Q1H MOI Rx#: [id number] Sodium Chloride 0.9% 1, 1050 275 000 ml @ 100 mls/hr IV . Q10H [facility] Rx#:[id number] Vancomycin 1,500 mg In 250 250 125 Sodium Chloride 0.9% 250 ml @ 125 mls/hr IVPB Q12HR MOI Rx#:[id number] cefTRIAXone 1 gm In 200 100 Sodium Chloride 0.9% 50 ml @ 100 mls/hr IVPB ONCE STA Rx#:[id number] levETIRAcetam IV 250 mg 100 In Sodium Chloride 0.9% 100 ml @ 400 mls/hr IVPB DAILY MOI Rx#:[id number] levETIRAcetam IV 500 mg 100 100 In Sodium Chloride 0.9% 100 ml @ 400 mls/hr IVPB HS MOI Rx#:[id number] Output: Urine 550 725 365 Other: Voiding Method Indwelling Catheter Indwelling Catheter Indwelling Catheter - Exam Review Of Systems: Constitutional: No fever, no chills, no night sweats. No weight change. Reports weakness, fatigue or lethargy. No daytime sleepiness. EENT: Reports headache. Reports photophobia. No nasal drainage or congestion. No epistaxis. No sore throat. Lungs: No shortness of breath, cough, no sputum production. No wheezing. Cardiovascular: No chest pain, no lower extremity edema. No palpitations. No paroxysmal nocturnal dyspnea. No orthopnea. No lightheadedness or dizziness. No syncopal episodes. Abdominal: No abdominal pain. No nausea, vomiting. No diarrhea. No constipation. No bloody or tarry stools.. No loss of appetite. Genitourinary: No dysuria, increased frequency, urgency. No urinary retention. Musculoskeletal: No myalgias. Reports muscle weakness, no gait dysfunction, no frequent falls. No back pain. No neck pain. Integumentary: No wounds, no lesions. No rash or pruritus. No unusual bruising . No change in hair or nails. Neurologic: No aphasia. No facial droop. No change in mentation. No head injury. No headache. No paralysis. No paresthesia. Psychiatric: No depression. No anxiety. No mood swings. Endocrine: No abnormal blood sugars. No weight change. No excessive sweating or thirst. No cold intolerance. Physical exam: - Constitutional General appearance: cooperative, no acute distress - EENT Eyes: anicteric sclerae, PERRLA, normal appearance ENT: hearing grossly normal Unable to check for nuchal rigidity as patient is uncooperative. - Neck Neck: no lymphadenopathy, normal ROM, no other, no rigidity, no stridor, no thyromegaly - Respiratory Respiratory: bilateral: CTA, negative: diminished, dullness, rales, rhonchi - Cardiovascular Rhythm: regular Heart sounds: normal: S1, S2 Abnormal Heart Sounds: T/5 systolic murmur, no diastolic murmur, no rub, no S3 Gallop, no S4 Gallop, no click, no other - Gastrointestinal General gastrointestinal: normal bowel sounds, soft - Integumentary Integumentary: no rash - Neurologic Neurologic: Left facial droop nonfocal exam decreased comprehension and repetition patient unable to follow commands exam CNII-XII intact - Musculoskeletal Musculoskeletal: Strength equal bilaterally with slight decrease on the left side lower extremity - Psychiatric Psychiatric: Alert and oriented 3, appropriate affect. - Labs CBC & Chem 7: 06/22/19 05:06 06/22/19 05:06 Labs: Abnormal Lab Results - Last 24 Hours (Table) 06/21/19 06/21/19 06/21/19 Range/Units 15:55 15:55 17:24 WBC (3.8-10.6) k/uL RBC (4.30-5.90) m/uL Hgb (13.0-17.5) gm/dL Hct (39.0-53.0) % Plt Count (150-450) k/uL Neutrophils # (1.3-7.7) k/uL Lymphocytes # (1.0-4.8) k/uL ABG pH 7.48 H (7.35-7.45) ABG pCO2 30 L (35-45) mmHg ABG pO2 66 L (83-108) mmHg Sodium (137-145) mmol/L Carbon Dioxide (22-30) mmol/L BUN (9-20) mg/dL Creatinine (0.66-1.25) mg/dL Glucose (74-99) mg/dL POC Glucose (mg/dL) (75-99) mg/dL Calcium (8.4-10.2) mg/dL C-Reactive Protein 172.8 H (<10.0) mg/L HSV I IgG Interpret POSITIVE H (NEGATIVE) 06/21/19 06/22/19 06/22/19 Range/Units 17:58 05:06 05:06 WBC 15.2 H (3.8-10.6) k/uL RBC 3.26 L (4.30-5.90) m/uL Hgb 10.5 L (13.0-17.5) gm/dL Hct 29.8 L (39.0-53.0) % Plt Count 125 L (150-450) k/uL Neutrophils # 13.9 H (1.3-7.7) k/uL Lymphocytes # 0.6 L (1.0-4.8) k/uL ABG pH (7.35-7.45) ABG pCO2 (35-45) mmHg ABG pO2 (83-108) mmHg Sodium 130 L (137-145) mmol/L Carbon Dioxide 21 L (22-30) mmol/L BUN 21 H (9-20) mg/dL Creatinine 0.62 L (0.66-1.25) mg/dL Glucose 117 H (74-99) mg/dL POC Glucose (mg/dL) 108 H (75-99) mg/dL Calcium 8.2 L (8.4-10.2) mg/dL C-Reactive Protein (<10.0) mg/L HSV I IgG Interpret (NEGATIVE) Microbiology - Last 24 Hours (Table) 06/20/19 21:05 Blood Culture - Preliminary Blood No Growth after 24 hours 06/21/19 14:40 Group A Strep Throat Culture - Preliminary Throat 06/20/19 23:33 Urine Culture - Preliminary Urine,Voided Assessment and Plan Plan: 1. Chest pain, possible unstable angina. Acute cardiac syndrome ruled out. Patient is scheduled for heart catheterization tomorrow, echocardiogram to be obtained. Continue aspirin 81 mg daily, Lipitor, Coreg. 2. Migraine headache, uncontrolled. Patient will be order for morphine 5 mg IV 1 and Zofran as needed for nausea. Toradol added as scheduled. 3. Left facial droop with slurred speech and Dizziness with metabolic encephalopathy. Concern for meningitis or viral encephalitis, possible contrast-induced encephalopathy. Dr. Ramsey consult added. Patient is unable to go for lumbar puncture and to 7 days off Plavix which would be June 26. No plan for transfer. 4. History of coronary artery disease status post stent placement in RCA. Continue as in #1. 5. Hypertension, hypertensive cardio vascular disease with left ventricular hypertrophy. Continue Norvasc 5 mg at bedtime, Coreg 25 mg twice daily, hydrochlorothiazide 25 mg daily, losartan 50 mg daily, clonidine decreased to 0.2 mg 3 times daily. 6. Recurrent TIA with 70% carotid stenosis internal carotid artery following with Dr. Londono. Continue aspirin, Lipitor for secondary prevention. 7. Parkinson's disease, stable. Continue Keppra, Robaxin. 8. 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 9. Obstructive sleep apnea with CPAP 10. History of prostate cancer status post surgery and chemotherapy, radiation, stable. 11. Glaucoma. Continue eyedrops. Discharge plan: To be determined. PT and OT in place. Impression and plan of care have been directed as dictated by the signing physician. Suly Gallo nurse practitioner acting as scribe for signing physician.
[2019-06-22] MEDS: ACETAMINOPHEN TAB 325 MG TAB PO PRN (15:53)
[2019-06-22] MEDS: SODIUM CHLORIDE 0.9% 1,000 ML IV SCH (15:56)
[2019-06-22] MEDS: levETIRAcetam IV 500 MG in SODIUM CHLORIDE 0.9% 100 ML IVPB SCH (20:53)
[2019-06-22] MEDS: LATANOPROST 0.005% OPHTH DROPS 2.5 ML BTL BOTH EYES SCH (20:56)
[2019-06-22] MEDS: amLODIPine 5 MG TAB PO SCH (20:56)
[2019-06-22] MEDS: PANTOPRAZOLE 40 MG TABLET PO SCH (20:56)
--- NOTE | 2019-06-22 23:04 | PN ---
PROGRESS NOTE DATE OF SERVICE: 06/22/2019 REASON FOR FOLLOWUP: Possible cellulitis. INTERVAL HISTORY: The patient is afebrile. The last temperature was 24 hours ago. The patient has been less restless and did answer simple questions. Headache remains the main symptom for him. No nausea, vomiting or any diarrhea has been reported and he is hemodynamically stable. PHYSICAL EXAMINATION: Blood pressure 131/73 with a pulse of 78, temperature 98.9. He is 100% on 3 L nasal cannula. General description is an elderly male lying in bed in no distress. RESPIRATORY SYSTEM: Unlabored breathing with decreased breath sounds at the base. No wheeze. HEART: S1, S2. Regular rate and rhythm. ABDOMEN: Soft. No tenderness. EXTREMITIES: No edema of the feet. LABS: Hemoglobin is 10.5, white count 15.2, BUN of 21, creatinine 0.62. HSV I IgG is positive. DIAGNOSTIC IMPRESSION AND PLAN: Patient with a fever and elevated white count in this patient who did have mental status changes and headache with concern for encephalitis/meningitis. LP could not be completed yesterday, as the patient was restless; however, in view of his overall improvement in his mentation, less restless, and today will be his day 5 of , LP can be tried again in the morning for a better diagnosis. Will keep the patient on IV acyclovir, vancomycin and Rocephin. Family was at the bedside. Their questions and concerns were answered. [id number] / IJN: [id number] /
[2019-06-23 05:19] LABS: Mycoplasma IgM Antibody 0.14 INDEX (<=0.90)
[2019-06-23] MEDS: KETOROLAC 30 MG/ML 1 ML VIAL IVP SCH ×4 (05:37→23:18)
[2019-06-23] MEDS: ACETAMINOPHEN TAB 325 MG TAB PO PRN ×2 (05:37→15:35)
[2019-06-23] MEDS ORDERED: VANCOMYCIN TROUGH DUE 1 EACH MISC MISCELLANE ONE (08:00)
[2019-06-23 08:17] LABS: HCT 31.1 % (39.0-53.0); MCH 30.4 pg (25.0-35.0); MCHC 32.1 g/dL (31.0-37.0); MCV 94.7 fL (80.0-100.0); Mean Platelet Volume 6.6; Platelet Count 125 k/uL (150-450); RBC 3.28 m/uL (4.30-5.90); RDW 13.1 % (11.5-15.5); WBC 9.7 k/uL (3.8-10.6)
--- NOTE | 2019-06-23 08:19 | PN ---
PROGRESS NOTE Mr. Rivera is in sinus rhythm, comfortable. He has received a lot of IV fluids. Neurological, he does not have focal deficits. His mentation is better. He is improving, answering questions. Vital signs are stable. S1, S2 heard normally. Lungs are clear. Abdomen and lower extremity exam unchanged Plan is to diurese him gently at 20 mg Lasix IV push q.12 hours since patient has gained substantial weight and appears edematous. Prognosis is fair. There is improvement. We will continue his current medical regimen and give a small dose of Lasix. MMODL / IJN: [id number] /
[2019-06-23 08:29] LABS: African American GFR (CKD) >90 (>60 ml/min/1.73 sqM); Anion Gap 9 mmol/L; Blood Urea Nitrogen 15 mg/dL (9-20); Carbon Dioxide 22 mmol/L (22-30); Chloride 103 mmol/L (98-107); Glucose 80 mg/dL (74-99); Potassium 3.4 mmol/L (3.5-5.1); Sodium 134 mmol/L (137-145)
[2019-06-23] MEDS: CARVEDILOL 12.5 MG TAB PO SCH ×2 (10:09→18:48)
[2019-06-23] MEDS: ASPIRIN 81 MG PO SCH (10:11)
[2019-06-23] MEDS: cloNIDine HCL 0.2 MG TAB PO SCH ×3 (10:12→21:19)
[2019-06-23] MEDS: BRIMONIDINE TARTRATE 0.2% DROPS 5 ML BTL LEFT EYE SCH ×2 (10:12→20:17)
[2019-06-23] MEDS: ATORVASTATIN 80 MG TAB PO SCH (10:12)
[2019-06-23] MEDS: FERROUS SULFATE 325 MG TAB PO SCH (10:13)
[2019-06-23] MEDS: FUROSEMIDE 10 MG/ML 2 ML VIAL IV SCH ×2 (10:13→20:17)
[2019-06-23] MEDS: levETIRAcetam IV 250 MG in SODIUM CHLORIDE 0.9% 100 ML IVPB SCH (10:14)
[2019-06-23] MEDS: HYDROCHLOROTHIAZIDE 25 MG TAB PO SCH (10:14)
[2019-06-23] MEDS: LOSARTAN 50 MG TAB PO SCH (10:15)
[2019-06-23] MEDS: TIMOLOL 0.5% OPHTH DROPS 5 ML BTL LEFT EYE SCH ×2 (10:15→20:18)
[2019-06-23] MEDS: VANCOMYCIN 1,500 MG in SODIUM CHLORIDE 0.9% 250 ML IVPB SCH (10:15)
--- NOTE | 2019-06-23 11:17 | P.ANPRN ---
Procedure Note - Anesthesia - Nerve Block Performed Other (see comment) Time Out Performed: Yes (LUMBAR PUNCTURE in ICU) Date of Procedure: 06/23/19 Procedure Start Time: 10:50 Procedure Stop Time: 11:01 Specifically requested for management of pain by DrDarryl: Analy Arciniega Sedation Type: Awake Preparation: Sterile Prep Position: Left Lateral Catheter: None Needle Types: Other (see comment) (20G SPINAL) Needle Gauge: Other (see comment) (20G SPINAL NEEDLE) Ultrasound used to visualize needle placement: No Ultrasound used to observe medication spread: No Injectate: Other (see comment) (none) Narrative: Opening pressure was 22. Very slow flow, difficult to get a lot of CSF, color was clear, no blood. Blood Aspirated: No Pain Paresthesia on Injection Noted: No Image Stored and Saved: No Events: Uneventful and Well Tolerated
--- NOTE | 2019-06-23 11:48 | P.PN ---
Subjective Progress Note Date: 06/23/19 Principal diagnosis: Mental status change, most likely secondary to contrast induced encephalopathy. This is an 83-year-old patient with history of coronary artery disease, previous history of CVA/TIA, hypertension, dyslipidemia, upchucked of sleep apnea, Parkinson's disease and peripheral vascular disease. Patient had reviewed his history of stenting of his RCA and a recent recatheterization 6 or 7 months ago related to his symptoms of unstable angina. His RCA stent was found to be patent, and redness of 50-60% disease in the second diagonal branch. Patient presents to the hospital on 06/18/2019 with complaints of chest pain, associated with shortness of breath. There were no acute ischemic changes on the EKG, chest x-ray was negative, most recent echocardiogram from June 2018 showed EF of 50-55%, moderate aortic valve sclerosis, mild aortic stenosis, mild TR. In view of patient's symptoms suggestive of unstable angina, patient underwent cardiac catheterization on the 06/20/2019, which showed stable coronary artery disease with patent stent in the RCA and mild to moderate disease in the diagonal coronary artery, and medical treatment was recommended. Following the catheterization, patient developed left-sided facial weakness, and expressive aphasia and confusion. But he is moving all 4 extremities. His initial NIH score was 8, subsequently increased to 13. Brain CT without contrast showed age-related atrophic and chronic small vessel disease without acute intracranial process. Angiography CT of the head and neck showed no significant abnormality, MRI of the brain showed no evidence of recent infarct and persistent mild to moderate diffuse cervical atrophy with advanced chronic small vessel ischemic changes. Patient was placed in the intensive care unit for close neurological monitoring. His symptoms of speech slurring, and expressive aphasia persists he is moving all 4 extremities, he states his name correctly, however when asked about his age he keeps repeating his name. At times he is having difficulty following command. Patient was not a candidate for thrombolytics related to his elevated PTT. Neurology consultation is pending Patient was reevaluated today on 06/21/2019, remains in the ICU, in no distress, but definitely confused. Patient would say his name repeatedly, does not follow any instructions. Spiked a fever last night, and his urine was noted to be infected with pyuria and bacteriuria, hence I started the patient today on Rocephin. Repeat CT of the brain showed no evidence of CVA. The neurologist on the case believes the patient had mostly metabolic encephalopathy could be related to his contrast media or related to his urinary tract infection hence she is now off the case. His mental status is definitely worse today compared to yesterday. And I was approached by family members regarding possibly transferring the patient, I explained to them that this should be discussed with the admitting physician. In the meantime I will continue his IV fluid, started the patient on antibiotics in the form of Rocephin, and we'll continue to monitor the patient in the ICU. WBC count today is 12.6 hemoglobin is 12.2 ABG showed a pO2 of 63 pCO2 of 33 pH of 7.46. Sodium is noted to be a bit low at 1 30 otherwise his labs are unremarkable. Urinalysis was noted there is evidence of hematuria bacteriuria and pyuria. Chest x-ray showed mostly bibasilar atelectasis. Strongly doubt pneumonia as the patient has no clinical symptoms of cough or shortness of breath. His pO2 is marginal mostly because of atelectasis. Patient was reevaluated today on 06/22/2019, remains in the ICU, had intermittent episodes of fevers, lumbar puncture was attempted yesterday, but was not successful. Neurologically the patient is making a significant improvement, he is being treated for a urinary tract infection, he is also being treated by infectious disease for presumptive sepsis and encephalitis. He is empirically on acyclovir, he is also on Rocephin and vancomycin. Today the patient is more awake, he is more responsive, he knew his name, knew exactly what he was, he even a knew the name of the president. This is a dramatic improvement compared to 24 hours ago, hence I believe the patient most likely had contrast-induced encephalopathy. Blood cultures are pending. Urine cultures are pending. Th roat culture was positive for group A streptococcus, most likely streptococcus. pyogenes, questionable clinical significance . Labs were reviewed patient had WBC count of 15.2 hemoglobin of 10.5. Sodium remains low at 130, renal profile is normal. Patient had a temp of 101 yesterday, his temperature today is 98.2. Patient was reevaluated today on , remains in the intensive care unit, hemodynamically stable, mental status is significantly improved over the last 2 days. He is even much better today compared to yesterday. Again he knew people around him well, he knew the year, oriented to place, and he knew the name of the president. Significant improvement noted, hence this more or less fits into a picture of contrast induced encephalopathy. Patient remains on multiple antib iotics for presumptive viral or bacterial encephalitis, and I did recommend that we'll proceed with the lumbar puncture to put the issue to rest, and possibly discontinue all antiviral therapy and meningitis treatment if the spinal fluid comes back unremarkable and I expect it will. We'll continue treatment of his urinary tract infection which is a gram-negative infection and that by itself alone explains his fevers. Objective - Vital Signs Vital signs: Vital Signs Temp 99.3 F 06/23/19 08:00 Pulse 60 06/23/19 11:00 Resp 14 06/23/19 11:00 BP 144/101 06/23/19 11:00 Pulse Ox 94 L 06/23/19 11:00 Intake & Output 06/22/19 06/23/19 06/23/19 18:59 06:59 18:59 Intake Total 2024 1950 170 Output Total 1255 1965 625 Balance 843 -22 -919 Weight 96.2 kg Intake: IV 2024 1899 170 0.9 1275 1300 170 ACETAMINOPHEN IV (For NPO 100 ) 1,000 mg In Empty Bag 1 bag @ 400 mls/hr IVPB Q6H [facility] Rx#:[id number] Acyclovir Sodium 1,000 mg 250 250 In Sodium Chloride 0.9% 250 ml @ 270 mls/hr IVPB Q8HR [facility] Rx#:[id number] Vancomycin 1,500 mg In 250 250 Sodium Chloride 0.9% 250 ml @ 125 mls/hr IVPB Q12HR [facility] Rx#:[id number] cefTRIAXone 1 gm In 50 Sodium Chloride 0.9% 50 ml @ 100 mls/hr IVPB ONCE [facility] Rx#:[id number] levETIRAcetam IV 250 mg 100 In Sodium Chloride 0.9% 100 ml @ 400 mls/hr IVPB DAILY [facility] Rx#:[id number] levETIRAcetam IV 500 mg 100 In Sodium Chloride 0.9% 100 ml @ 400 mls/hr IVPB HS [facility] Rx#:[id number] Intake, IV Titration 50 Amount cefTRIAXone 2 gm In 50 Sodium Chloride 0.9% 50 ml @ 100 mls/hr IVPB Q12H [facility] Rx#:[id number] Output: Urine 1255 1965 625 Other: Voiding Method Indwelling Catheter Indwelling Catheter - Exam GENERAL EXAM: Revealed 83-year-old white male, not confused anymore, slow, but oriented to time place and person. HEENT: PERRLA, EOMI, no icterus. Dry mucous membranes, no neck masses, no JVD, no stridor. No evidence of proptosis. No facial asymmetry. CHEST: No chest wall deformity. Symmetrical expansion. LUNGS: Diminished breath sounds at the bases no crackles or rhonchi or wheezes.. CVS: Regular rate and rhythm, normal S1 and S2, no gallops, no murmurs, no rubs ABDOMEN: Soft, nontender. No hepatosplenomegaly, normal bowel sounds, no guarding or rigidity. EXTREMITIES: No clubbing, no edema, no cyanosis, 2+ pulses and upper and lower extremities. MUSCULOSKELETAL: normal bulk and tone, spontaneous movement noted to be well in all 4 extremities. SPINE: No scoliosis or deformity SKIN: No rashes CENTRAL NERVOUS SYSTEM: Patient is calm, significant improvement today compared to the last 2 days, no gross focal neurologic deficits. Except the patient seems to be a bit slow. - Labs CBC & Chem 7: 06/23/19 07:38 06/23/19 07:38 Labs: Abnormal Lab Results - Last 24 Hours (Table) 06/21/19 06/23/19 06/23/19 Range/Units 15:55 07:38 07:38 RBC 3.28 L (4.30-5.90) m/uL Hgb 10.0 L (13.0-17.5) gm/dL Hct 31.1 L (39.0-53.0) % Plt Count 125 L (150-450) k/uL Sodium 134 L (137-145) mmol/L Potassium 3.4 L (3.5-5.1) mmol/L Creatinine 0.59 L (0.66-1.25) mg/dL Calcium 8.0 L (8.4-10.2) mg/dL HSV I&II IgM Ab 1.25 H (<=0.90) INDEX Microbiology - Last 24 Hours (Table) 06/21/19 14:40 Group A Strep Throat Culture - Final Throat 06/22/19 05:06 Blood Culture - Preliminary Blood No Growth after 24 hours 06/20/19 21:05 Blood Culture - Preliminary Blood No Growth after 48 hours 06/20/19 23:33 Urine Culture - Preliminary Urine,Voided Gram Neg Bacilli Assessment and Plan Assessment: Impression: 1: Mental status change, most likely secondary to contrast induced encephalopathy however since there is a concern about viral encephalitis or meningitis, we'll proceed with a lumbar puncture as recommended by infectious disease on the case. #3. Coronary artery disease, with previous stenting to the RCA, status post cardiac catheterization. #4. Previous history of CVA in 2004 with slight left facial droop, multiple TIAs #5. Hypertension #6. Dyslipidemia #7. Obstructive sleep apnea #8. Parkinson's disease #9. History of prostate cancer with surgical resection followed by chemotherapy and radiation #10. Carotid stenosis, CT angiography of the head and neck showed right ICA of 60% and left ICA of 40-50% #11. Never smoker #12. Previous history of lower GI bleeding Recommendation: Recommend spinal tap, recommended we continue the present treatment plan, cut down IV fluids, continue to monitor in the ICU, and in the spinal fluid comes back negative for viral or bacterial infection, then we could possibly discontinue all the antiviral therapy and antibiotics and eventually consider discharging the patient home. In the meantime continue treatment of his gram-negative infection in the urine had a long discussion with his family at bedside regarding his condition. Time with Patient: Less than 30
[2019-06-23] MEDS: ACYCLOVIR SODIUM 1,000 MG in SODIUM CHLORIDE 0.9% 250 ML IVPB SCH ×3 (11:49→23:23)
--- NOTE | 2019-06-23 12:17 | P.PN ---
Subjective Progress Note Date: 06/23/19 This is an 83-year-old male patient of Dr. Lawson and Dr. Byrd with a previous medical history significant for CAD status post stent placement of the RCA in 2010 while in [place]. He had a repeat catheterization 6-7 months after that secondary to unstable angina. Catheterization revealed a patent stent in the RCA with evidence of 50-60% disease in the second diagonal branch. Past medical history of hypertension and hypertensive cardiovascular disease with left ventricular hypertrophy, obstructive sleep apnea with CPAP, prostate cancer status post surgery, chemotherapy and radiation therapy, recurrent TIA, 70% carotid stenoses internal carotid artery follows with Dr. 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 He does have some weakness on the left lower extremity side which is chronic. 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 Patient complains of chest pain for the past 3 days. He denies any dizziness or lightheadedness. He has some mild shortness of breath and nausea. When he lies down this seems to help alleviate symptoms. Patient is also complaining of migraine headache which she states once is above the level #7 he is unable to tolerate it. He states he normally comes into the ER and receives morphine 5 mg and Zofran which will be ordered. Patient came into [facility] emergency center. Troponins negative 3, WBC 4.1, hemoglobin 13.1, platelets 129, sodium 127, potassium 4.7, creatinine 0.68, magnesium 1.8, LDL 121. EKG is sinus rhythm with no acute ST-T wave changes. Chest x-ray was negative for any acute cardiopulmonary process. Most recent echocardiogram obtained June 2018 reveals preserved LV systolic function with ejection fraction 50-55%, moderate aortic valve sclerosis, mild aortic stenosis with a mean gradient of 9 mmHg, mild TR and mild pulmonary hypertension with an RVSP of 27 mmHg. patient was placed on the observation unit and seen by cardiology with plan for heart catheterization tomorrow. 06/20 patient underwent cardiac cath today and was found to have stable coronary artery disease with patent stent in the RCA and mild to moderate disease in the diagonal. Patient was found to be incoherent with facial droop involving the left face so now after the cardiac cath. CTA was ordered that did not show any major vessel disease. Patient was not a Candidate for Thrombectomy. PT Levels Drawn If Less Than 30 in the next 25 minutes with the meet the criteria for TPA. Stat EEG and MRI has been ordered. Neurology consult placed for acute stroke. 06/21: The patient is seen in the intensive care unit. CAT scan of the brain to showed related atrophy and chronic small vessel ischemia without acute intracranial process. CT angiogram revealed right internal carotid artery 60% and left 40-50%. MRI of the brain showed no evidence of recent infarct. Persistent mild to moderate diffuse cerebral atrophy with advanced chronic small vessel ischemic change. No significant change. Possible old right padilla radiata infarct. He has been hemodynamically stable. His mental status has worsened from yesterday. He is now unable to follow commands. He is answering yes and mumbling to questions. He did have a fever up to 102.2. Blood culture and urine culture in progress. Patient did have a Olivo catheter placed which was very traumatic and initially drained a significant amount of blood. Urine output remains dark and hematuria. Patient was seen by neurology and has been signed off the case. Discussed case with Dr. Ramsey and with the patient's daughter and son-in-law at the bedside. We have added in consult for Dr. Ramsey. Ceftriaxone increased 2 g twice daily for possible meningitis/encephalitis. Acyclovir to be started IV by Dr. Ramsey. Initially planned for diagnostic lumbar puncture but because patient was on Plavix, last dose was on June 18 and LP has been postponed and will not be done until patient is off Plavix for a total of 7 days. At this time, we'll plan to monitor patient overnight and if no improvement of his mental status, anticipate transfer to tertiary care center.. 06/22: EEG revealed limited study abnormal consistent with toxo metabolic encephalopathy. Patient remains in the intensive care unit. His mental status is significantly improved this morning. Patient is able to answer to person pl moy. Last fever was documented at 8 PM yesterday. Heart rate is in the 60s and blood pressure 131/79, pulse ox 90% on 4 L nasal cannula. WBC is 15.2, hemoglobin 10.5 and platelet count 125. Sodium 1:30, potassium 3.8, chloride 102, CO2 21, BUN 21 and creatinine 0.62. Blood sugar 117. C-reactive protein was 172. TSH 1.040. Influenza testing was negative. HSV I IgG was positive. Group a strep rapid screen was negative. Blood cultures no growth after 24 hours. Urine cultures gram-negative bacilli. Group A strep throat culture is in process. Patient is currently on acyclovir, ceftriaxone at 2 g every 12 hours and vancomycin. Patient continues to complain of severe headache for whi ch Toradol has been added as scheduled. 06/23: Patient remains in intensive care unit. He has been afebrile for greater than 24 hours. Heart rate is 75, blood pressure 144/82 and pulse ox 94% on 4 L nasal cannula. Repeat white count is down to 9.7, hemoglobin 10.1 and platelet count 125. Sodium 134, potassium 3.4 will be replaced, chloride 103, CO2 22, BUN 15 creatinine 0.59. Urine cultures positive for gram-negative bacilli and initial blood culture from June 20 are showing no growth at 48 hours. This morning, Dr. SHAN Butcher has ordered a dose of IV Lasix 20 mg every [address] Ramsey has recommended continuing acyclovir, vancomycin and Rocephin. Diagnostic lumbar puncture was completed this morning with only a small amount of sternal spinal fluid return. Most likely only vital testing will be completed. Patient's mental status remains much improved. He continues to have headache. Anticipate he will be able to be transferred out of the intensive care unit later today. Objective - Vital Signs Vital signs: Vital Signs Temp 99.3 F 06/23/19 08:00 Pulse 75 06/23/19 08:00 Resp 25 H 06/23/19 08:00 BP 144/82 06/23/19 08:00 Pulse Ox 94 L 06/23/19 08:00 Intake & Output 06/22/19 06/23/19 06/23/19 18:59 06:59 18:59 Intake Total 2024 1950 70 Output Total 1255 1965 325 Balance 856 -15 -939 Weight 96.2 kg Intake: IV 2024 1899 70 0.9 1275 1300 70 ACETAMINOPHEN IV (For NPO 100 ) 1,000 mg In Empty Bag 1 bag @ 400 mls/hr IVPB Q6H PRN Rx#:[id number] Acyclovir Sodium 1,000 mg 250 250 In Sodium Chloride 0.9% 250 ml @ 270 mls/hr IVPB Q8HR [facility] Rx#:[id number] Vancomycin 1,500 mg In 250 250 Sodium Chloride 0.9% 250 ml @ 125 mls/hr IVPB Q12HR [facility] Rx#:[id number] cefTRIAXone 1 gm In 50 Sodium Chloride 0.9% 50 ml @ 100 mls/hr IVPB ONCE STA Rx#:[id number] levETIRAcetam IV 250 mg 100 In Sodium Chloride 0.9% 100 ml @ 400 mls/hr IVPB DAILY [facility] Rx#:[id number] levETIRAcetam IV 500 mg 100 In Sodium Chloride 0.9% 100 ml @ 400 mls/hr IVPB HS [facility] Rx#:[id number] Intake, IV Titration 50 Amount cefTRIAXone 2 gm In 50 Sodium Chloride 0.9% 50 ml @ 100 mls/hr IVPB Q12H [facility] Rx#:[id number] Output: Urine 1255 1965 325 Other: Voiding Method Indwelling Catheter Indwelling Catheter - Exam Review Of Systems: Constitutional: No fever, no chills, no night sweats. No weight change. Rep orts weakness, fatigue or lethargy. No daytime sleepiness. EENT: Reports continuedheadache. Reports photophobia. No nasal drainage or congestion. No epistaxis. No sore throat. Lungs: No shortness of breath, cough, no sputum production. No wheezing. Cardiovascular: No chest pain, no lower extremity edema. No palpitations. No paroxysmal nocturnal dyspnea. No orthopnea. No lightheadedness or dizziness. No syncopal episodes. Abdominal: No abdominal pain. No nausea, vomiting. No diarrhea. No constipation. No bloody or tarry stools.. No loss of appetite. Genitourinary: No dysuria, increased frequency, urgency. No urinary retention. Musculoskeletal: No myalgias. Reports muscle weakness, no gait dysfunction, no frequent falls. No back pain. No neck pain. Integumentary: No wounds, no lesions. No rash or pruritus. No unusual bruising. No change in hair or nails. Neurologic: No aphasia. No facial droop. No change in mentation. No head injury. No headache. No paralysis. No paresthesia. Psychiatric: No depression. No anxiety. No mood swings. Endocrine: No abnormal blood sugars. No weight change. No excessive sweating or thirst. Physical exam: - Constitutional General appearance: cooperative, no acute distress - EENT Eyes: anicteric sclerae, PERRLA, normal appearance ENT: hearing grossly normal Unable to check for nuchal rigidity as patient is uncooperative. - Neck Neck: no lymphadenopathy, normal ROM, no other, no rigidity, no stridor, no thyromegaly - Respiratory Respiratory: bilateral: CTA, negative: diminished, dullness, rales, rhonchi - Cardiovascular Rhythm: regular Heart sounds: normal: S1, S2 Abnormal Heart Sounds: T/5 systolic murmur, no diastolic murmur, no rub, no S3 Gallop, no S4 Gallop, no click, no other - Gastrointestinal General gastrointestinal: normal bowel sounds, soft - Integumentary Integumentary: no rash - Neurologic Neurologic: Left facial droop nonfocal exam decreased comprehension and repe tition patient unable to follow commands exam CNII-XII intact - Musculoskeletal Musculoskeletal: Strength equal bilaterally with slight decrease on the left side lower extremity - Psychiatric Psychiatric: Alert and oriented 3, appropriate affect. - Labs CBC & Chem 7: 06/23/19 07:38 06/23/19 07:38 Labs: Abnormal Lab Results - Last 24 Hours (Table) 06/21/19 06/23/19 06/23/19 Range/Units 15:55 07:38 07:38 RBC 3.28 L (4.30-5.90) m/uL Hgb 10.0 L (13.0-17.5) gm/dL Hct 31.1 L (39.0-53.0) % Plt Count 125 L (150-450) k/uL Sodium 134 L (137-145) mmol/L Potassium 3.4 L (3.5-5.1) mmol/L Creatinine 0.59 L (0.66-1.25) mg/dL Calcium 8.0 L (8.4-10.2) mg/dL HSV I&II IgM Ab 1.25 H (<=0.90) INDEX Microbiology - Last 24 Hours (Table) 06/21/19 14:40 Group A Strep Throat Culture - Final Throat 06/22/19 05:06 Blood Culture - Preliminary Blood No Growth after 24 hours 06/20/19 21:05 Blood Culture - Preliminary Blood No Growth after 48 hours 10/01/19 23:33 Urine Culture - Preliminary Urine,Voided Gram Neg Bacilli Assessment and Plan Plan: 1. Chest pain, possible unstable angina. Acute cardiac syndrome ruled out. Status post heart catheterization with stable coronary artery disease and patent stent in the RCA and mild to moderate disease in the diagonal. Continue aspirin 81 mg daily, Lipitor, Coreg. 2. Migraine headache, uncontrolled. Patient will be order for morphine 5 mg IV 1 and Zofran as needed for nausea. Toradol added as scheduled. 3. Left facial droop with slurred speech and Dizziness with metabolic encephalopathy. Concern for meningitis or viral encephalitis, possible contrast-induced encephalopathy. Dr. Ramsey consult added. Patient is currently on acyclovir, ceftriaxone, vancomycin. Lumbar puncture completed this morning. Awaiting results. Possible transfer out of the intensive care unit later today. 4. History of coronary artery disease status post stent placement in RCA. Continue as in #1. 5. Hypertension, hypertensive cardio vascular disease with left ventricular hypertrophy. Continue Norvasc 5 mg at bedtime, Coreg 25 mg twice daily, hydrochlorothiazide 25 mg daily, losartan 50 mg daily, clonidine decreased to 0.2 mg 3 times daily. 6. Recurrent TIA with 70% carotid stenosis internal carotid artery following with Dr. Londono. Continue aspirin, Lipitor for secondary prevention. 7. Parkinson's disease, stable. Continue Keppra, Robaxin. 8. 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 9. Obstructive sleep apnea with CPAP 10. History of prostate cancer status post surgery and chemotherapy, radiation, stable. 11. Glaucoma. Continue eyedrops. Discharge plan: To be determined. PT and OT in place. Impression and plan of care have been directed as dictated by the signing physician. Suly Gallo nurse practitioner acting as scribe for signing physician.
[2019-06-23] MEDS: PRAMIPEXOLE 0.5 MG TAB PO SCH ×3 (13:32→21:19)
[2019-06-23] MEDS ORDERED: ONDANSETRON 4 MG/2 ML VIAL IVP PRN (15:04)
[2019-06-23 15:33] LABS: Glucose,CSF 48 mg/dL (40-70); Total Protein,CSF 62 mg/dL (12-60)
[2019-06-23 15:56] LABS: Appearance,CSF Hazy; CSF Tube Number 1; CSF Tube Volume 0.25; Nucleated Cells, CSF 1 u/L (0-5); Red Blood Cell, CSF Crenated 50 %; Red Blood Cell, CSF Fresh 50 %; Red Blood Cell,CSF 2370 u/L (0-10)
[2019-06-23] MEDS: SODIUM CHLORIDE 0.9% 1,000 ML IV SCH ×2 (18:22→21:24)
--- NOTE | 2019-06-23 18:52 | PN ---
PROGRESS NOTE DATE OF SERVICE: 06/23/2019 REASON FOR FOLLOWUP: Possible encephalitis. INTERVAL HISTORY: The patient is currently afebrile. The patient has been more awake and alert. He did have an LP completed this morning with a clear, colorless fluid obtained in small amount. The patient has been complaining of headache but no worsening. No chest pain, shortness of breath or cough. No abdominal pain or diarrhea. PHYSICAL EXAMINATION: Blood pressure is 113/70 with a pulse of 79, temperature of 98. He is 94% on room air. General description is an elderly male up in the chair in no distress. RESPIRATORY SYSTEM: Unlabored breathing with decreased breath sounds at the base. No wheeze. HEART: S1, S2. Regular rate and rhythm. ABDOMEN: Soft. No tenderness. LABS: Hemoglobin is 10, white count 9.7, BUN of 15, creatinine 0.59. CSF did show traumatic tap with 2300 RBCs. Glucose is normal at 48. Protein was slightly elevated at 62. DIAGNOSTIC IMPRESSION AND PLAN: Patient with acute mental status changes and fever with concern likely for encephalitis, possible viral etiology. HSV DNA by PCR is currently pending. Patient to continue acyclovir 1 gram q.8 hours. Will monitor his kidney function closely, as clinical suspicion is low for bacterial meningitis. Vancomycin discontinued. Rocephin has been adjusted to once a day to cover for possible UTI while waiting for the culture to finalize. at the bedside. Questions and concerns were answered. MMRAADL / IJN: [id number] /
[2019-06-23] MEDS ORDERED: Potassium Replacement Protocol 1 EACH MISC MISCELLANE PRN (19:22)
[2019-06-23] MEDS: levETIRAcetam IV 500 MG in SODIUM CHLORIDE 0.9% 100 ML IVPB SCH (20:16)
[2019-06-23] MEDS: POTASSIUM CHLORIDE 10 MEQ in WATER FOR INJECTION 1 100ML.BAG IVPB SCH ×3 (20:16→23:15)
[2019-06-23] MEDS: amLODIPine 5 MG TAB PO SCH (20:17)
[2019-06-23] MEDS: PANTOPRAZOLE 40 MG TABLET PO SCH (20:17)
[2019-06-23] MEDS: LATANOPROST 0.005% OPHTH DROPS 2.5 ML BTL BOTH EYES SCH (20:18)
[2019-06-24] MEDS: POTASSIUM CHLORIDE 10 MEQ in WATER FOR INJECTION 1 100ML.BAG IVPB SCH (00:27)
[2019-06-24] MEDS: SODIUM CHLORIDE 0.9% 1,000 ML IV SCH ×3 (00:28→21:40)
[2019-06-24] MEDS: KETOROLAC 30 MG/ML 1 ML VIAL IVP SCH ×4 (05:01→23:25)
[2019-06-24 05:53] LABS: Basophils % (A) 0 %; Eosinophils # (A) 0.2 k/uL (0-0.7); Eosinophils % (A) 4 %; HCT 29.8 % (39.0-53.0); HGB 10.4 gm/dL (13.0-17.5); Lymphocytes # (A) 0.5 k/uL (1.0-4.8); Lymphocytes % (A) 8 %; MCH 31.8 pg (25.0-35.0); MCHC 34.7 g/dL (31.0-37.0); MCV 91.6 fL (80.0-100.0); Mean Platelet Volume 6.2; Monocytes # (A) 0.3 k/uL (0-1.0); Monocytes % (A) 5 %; Neutrophils # (A) 4.5 k/uL (1.3-7.7); Neutrophils % (A) 80 %; Platelet Count 140 k/uL (150-450); RBC 3.26 m/uL (4.30-5.90); RDW 12.5 % (11.5-15.5); WBC 5.6 k/uL (3.8-10.6)
[2019-06-24] MEDS: CARVEDILOL 12.5 MG TAB PO SCH ×2 (06:34→18:19)
[2019-06-24] MEDS: FUROSEMIDE 10 MG/ML 2 ML VIAL IV SCH ×3 (06:34→23:25)
[2019-06-24 06:38] LABS: Calcium 8.3 mg/dL (8.4-10.2); Potassium 3.5 mmol/L (3.5-5.1)
[2019-06-24] MEDS: ATORVASTATIN 80 MG TAB PO SCH (08:50)
[2019-06-24] MEDS: levETIRAcetam IV 250 MG in SODIUM CHLORIDE 0.9% 100 ML IVPB SCH (08:51)
[2019-06-24] MEDS: POTASSIUM CHLORIDE ER 20 MEQ TAB.ER PO SCH ×4 (08:51→18:40)
[2019-06-24] MEDS: LOSARTAN 50 MG TAB PO SCH (08:51)
[2019-06-24] MEDS: ASPIRIN 81 MG PO SCH (08:51)
[2019-06-24] MEDS: amLODIPine 5 MG TAB PO SCH ×2 (08:51→21:35)
[2019-06-24] MEDS: PRAMIPEXOLE 0.5 MG TAB PO SCH ×3 (08:52→21:35)
[2019-06-24] MEDS: cloNIDine HCL 0.2 MG TAB PO SCH ×2 (08:52→21:35)
[2019-06-24] MEDS: HYDROCHLOROTHIAZIDE 25 MG TAB PO SCH (08:52)
[2019-06-24] MEDS: TIMOLOL 0.5% OPHTH DROPS 5 ML BTL LEFT EYE SCH ×2 (08:52→21:36)
[2019-06-24] MEDS: BRIMONIDINE TARTRATE 0.2% DROPS 5 ML BTL LEFT EYE SCH ×2 (08:54→21:35)
[2019-06-24] MEDS: FERROUS SULFATE 325 MG TAB PO SCH (08:56)
[2019-06-24] MEDS: ACYCLOVIR SODIUM 1,000 MG in SODIUM CHLORIDE 0.9% 250 ML IVPB SCH ×3 (10:18→23:27)
--- NOTE | 2019-06-24 10:33 | PN ---
PROGRESS NOTE Mr. Rivera is doing much better. He seems to be well oriented. Denies chest pain and responded to commands very well. Hemodynamically stable. I am recommending that we increase amlodipine to 5 mg b.i.d., decrease the clonidine to 0.2 mg b.i.d. and increase losartan to 100 mg daily, and increase Lasix to 20 mg q.8 hours. Vitals are stable. We will have him up in chair, increase activity and plan to move him to medical floor. Vitals are stable. No JVD. S1, S2 heard normally. Short systolic murmur noted. Lungs reveal improved air entry. Abdomen and lower extremity exam is unchanged. MMODL / IJN: [id number] /
--- NOTE | 2019-06-24 10:50 | P.PN ---
Subjective Progress Note Date: 06/24/19 This is an 83-year-old male patient of Dr. Lawson and Dr. Byrd with a previous medical history significant for CAD status post stent placement of the RCA in 2010 while in [place]. He had a repeat catheterization 6-7 months after that secondary to unstable angina. Catheterization revealed a patent stent in the RCA with evidence of 50-60% disease in the second diagonal branch. Past medical history of hypertension and hypertensive cardiovascular disease with left ventricular hypertrophy, obstructive sleep apnea with CPAP, prostate cancer status post surgery, chemotherapy and radiation therapy, recurrent TIA, 70% carotid stenoses internal carotid artery follows with Dr. 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 He does have some weakness on the left lower extremity side which is chronic. Patient follows with a olap developer in [place], [place], and was last seen 6 months ago. Patient complains of chest pain for the past 3 days. He denies any dizziness or lightheadedness. He has some mild shortness of breath and nausea. When he lies down this seems to help alleviate symptoms. Patient is also complaining of migraine headache which she states once is above the level #7 he is unable to tolerate it. He states he normally comes into the ER and receives morphine 5 mg and Zofran which will be ordered. Patient came into [facility] emergency center. Troponins negative 3, WBC 4.1, hemoglobin 13.1, platelets 129, sodium 127, potassium 4.7, creatinine 0.68, magnesium 1.8, LDL 121. EKG is sinus rhythm with no acute ST-T wave changes. Chest x-ray was negative for any acute cardiopulmonary process. Most recent echocardiogram obtained June 2018 reveals preserved LV systolic function with ejection fraction 50-55%, moderate aortic valve sclerosis, mild aortic stenosis with a mean gradient of 9 mmHg, mild TR and mild pulmonary hypertension with an RVSP of 27 mmHg. patient was placed on the observation unit and seen by cardiology with plan for heart catheterization tomorrow. 06/20 patient underwent cardiac cath today and was found to have stable coronary artery disease with patent stent in the RCA and mild to moderate disease in the diagonal. Patient was found to be incoherent with facial droop involving the left face so now after the cardiac cath. CTA was ordered that did not show any major vessel disease. Patient was not a Candidate for Thrombectomy. PT Levels Drawn If Less Than 30 in the next 25 minutes with the meet the criteria for TPA. Stat EEG and MRI has been ordered. Neurology consult placed for acute stroke. 06/21: The patient is seen in the intensive care unit. CAT scan of the brain to showed related atrophy and chronic small vessel ischemia without acute intracranial process. CT angiogram revealed right internal carotid artery 60% and left 40-50%. MRI of the brain showed no evidence of recent infarct. Persistent mild to moderate diffuse cerebral atrophy with advanced chronic small vessel ischemic change. No significant change. Possible old right padilla radiata infarct. He has been hemodynamically stable. His mental status has worsened from yesterday. He is now unable to follow commands. He is answering yes and mumbling to questions. He did have a fever up to 102.2. Blood culture and urine culture in progress. Patient did have a Olivo catheter placed which was very traumatic and initially drained a significant amount of blood. Urine output remains dark and hematuria. Patient was seen by neurology and has been signed off the case. Discussed case with Dr. Ramsey and with the patient's daughter and son-in-law at the bedside. We have added in consult for Dr. Ramsey. Ceftriaxone increased 2 g twice daily for possible meningitis/encephalitis. Acyclovir to be started IV by Dr. Ramsey. Initially planned for diagnostic lumbar puncture but because patient was on Plavix, last dose was on June 18 and LP has been postponed and will not be done until patient is off Plavix for a total of 7 days. At this time, we'll plan to monitor patient overnight and if no improvement of his mental status, anticipate transfer to tertiary care center.. 06/22: EEG revealed limited study abnormal consistent with toxo metabolic encephalopathy. Patient remains in the intensive care unit. His mental status is significantly improved this morning. Patient is able to answer to person pl moy. Last fever was documented at 8 PM yesterday. Heart rate is in the 60s and blood pressure 131/79, pulse ox 90% on 4 L nasal cannula. WBC is 15.2, hemoglobin 10.5 and platelet count 125. Sodium 1:30, potassium 3.8, chloride 102, CO2 21, BUN 21 and creatinine 0.62. Blood sugar 117. C-reactive protein was 172. TSH 1.040. Influenza testing was negative. HSV I IgG was positive. Group a strep rapid screen was negative. Blood cultures no growth after 24 hours. Urine cultures gram-negative bacilli. Group A strep throat culture is in process. Patient is currently on acyclovir, ceftriaxone at 2 g every 12 hours and vancomycin. Patient continues to complain of severe headache for whi ch Toradol has been added as scheduled. 06/23: Patient remains in intensive care unit. He has been afebrile for greater than 24 hours. Heart rate is 75, blood pressure 144/82 and pulse ox 94% on 4 L nasal cannula. Repeat white count is down to 9.7, hemoglobin 10.1 and platelet count 125. Sodium 134, potassium 3.4 will be replaced, chloride 103, CO2 22, BUN 15 creatinine 0.59. Urine cultures positive for gram-negative bacilli and initial blood culture from June 20 are showing no growth at 48 hours. This morning, Dr. SHAN Butcher has ordered a dose of IV Lasix 20 mg every [address] Ramsey has recommended continuing acyclovir, vancomycin and Rocephin. Diagnostic lumbar puncture was completed this morning with only a small amount of sternal spinal fluid return. Most likely only vital testing will be completed. Patient's mental status remains much improved. He continues to have headache. Anticipate he will be able to be transferred out of the intensive care unit later today. 06/24: Patient remains in intensive care unit. He is cleared for transfer out of the intensive care unit today. He states his appetite has been poor and he does have some nausea and we will request Zofran be given now. He is congested and Lasix has been ordered by cardiology at 20 mg IV every 8 hours. We will also adding DuoNeb treatments scheduled. Patient states that he is feeling much improved today and also states he is much improved. His headache is now down to a number for which is the best since his admission. Patient has been afebrile. Heart rate is 58, blood pressure 133/77, pulse ox 96% on room air. White count is normal 5.6, hemoglobin 10.4, platelet count improving to 140. Sodium 132, potassium 3.5, chloride 99, CO2 is 26, BUN 16 creatinine 0.96. Cerebral spinal fluid hazy, RBCs 2370, total nucleated cells 1, crenated cells 50, fresh RBCs 50, glucose 48, total protein 62. HSV 1 and 2 PCR not detected and spinal fluid. Cerebrospinal fluid culture is in progress. Blood culture showing no growth at 72 hours and second culture at 48 hours. Urine culture as noted before was E. coli.. Patient is continued on acyclovir, Rocephin, vancomycin. Patient was evaluated by PT and OT with recommendations for subacute rehab. Patient and his has chosen [facility]. Anticipate probable discharge on Wednesday. Objective - Vital Signs Vital signs: Vital Signs Temp 98.2 F 06/24/19 08:00 Pulse 58 L 06/24/19 10:00 Resp 22 06/24/19 10:00 BP 133/77 06/24/19 10:00 Pulse Ox 96 06/24/19 10:00 Intake & Output 06/23/19 06/24/19 06/24/19 18:59 06:59 18:59 Intake Total 1070 2325 925 Output Total 2240 2775 880 Balance -1170 -450 45 Weight 96.9 kg Intake: IV 1020 2125 525 0.9 470 Acyclovir Sodium 1,000 mg 250 250 In Sodium Chloride 0.9% 250 ml @ 270 mls/hr IVPB Q8HR MOI Rx#:[id number] Potassium Chloride 10 meq 400 In Water For Injection 1 100ml.bag @ 100 mls/hr IVPB Q1HR MOI Rx#: [id number] Sodium Chloride 0.9% 1, 300 1375 375 000 ml @ 125 mls/hr IV . Q8H MOI Rx#:[id number] cefTRIAXone 2 gm In 50 Sodium Chloride 0.9% 50 ml @ 100 mls/hr IVPB Q24HR MOI Rx#:[id number] levETIRAcetam IV 500 mg 100 100 In Sodium Chloride 0.9% 100 ml @ 400 mls/hr IVPB HS MOI Rx#:[id number] Oral 50 200 400 Output: Urine 2240 2775 880 Other: Voiding Method Indwelling Catheter Indwelling Catheter Indwelling Catheter - Exam Review Of Systems: Constitutional: No fever, no chills, no night sweats. No weight change. Reports weakness, fatigue or lethargy. No daytime sleepiness. EENT: Reports improved headache. Reports photophobia. No nasal drainage or congestion. No epistaxis. No sore throat. Lungs: No shortness of breath, cough, no sputum production. No wheezing. Cardiovascular: No chest pain, no lower extremity edema. No palpitations. No paroxysmal nocturnal dyspnea. No orthopnea. No lightheadedness or dizziness. No syncopal episodes. Abdominal: No abdominal pain. No nausea, vomiting. No diarrhea. No constipat ion. No bloody or tarry stools.. No loss of appetite. Genitourinary: No dysuria, increased frequency, urgency. No urinary retention. Musculoskeletal: No myalgias. Reports muscle weakness, no gait dysfunction, no frequent falls. No back pain. No neck pain. Integumentary: No wounds, no lesions. No rash or pruritus. No unusual bruising. No change in hair or nails. Neurologic: No aphasia. No facial droop. No change in mentation. No head injury. No headache. No paralysis. No paresthesia. Psychiatric: No depression. No anxiety. No mood swings. Endocrine: No abnormal blood sugars. No weight change. No excessive sweating or thirst. Physical exam: - Constitutional General appearance: cooperative, no acute distress, patient's is at bedside - EENT Eyes: anicteric sclerae, PERRLA, normal appearance ENT: hearing grossly normal Unable to check for nuchal rigidity as patient is uncooperative. - Neck Neck: no lymphadenopathy, normal ROM, no other, no rigidity, no stridor, no thyromegaly - Respiratory Respiratory: bilateral: CTA, negative: diminished, dullness, rales, rhonchi - Cardiovascular Rhythm: regular Heart sounds: normal: S1, S2 Abnormal Heart Sounds: T/5 systolic murmur, no diastolic murmur, no rub, no S3 Gallop, no S4 Gallop, no click, no other - Gastrointestinal General gastrointestinal: normal bowel sounds, soft - Integumentary Integumentary: no rash - Neurologic Neurologic: Left facial droop nonfocal exam decreased comprehension and repetition patient unable to follow commands exam CNII-XII intact - Musculoskeletal Musculoskeletal: Strength equal bilaterally with slight decrease on the left side lower extremity - Psychiatric Psychiatric: Alert and oriented 3, appropriate affect. - Labs CBC & Chem 7: 06/24/19 05:07 06/24/19 05:07 Labs: Abnormal Lab Results - Last 24 Hours (Table) 06/23/19 06/24/19 06/24/19 Range/Units 10:55 05:07 05:07 RBC 3.26 L (4.30-5.90) m/uL Hgb 10.4 L (13.0-17.5) gm/dL Hct 29.8 L (39.0-53.0) % Plt Count 140 L (150-450) k/uL Lymphocytes # 0.5 L (1.0-4.8) k/uL Sodium 132 L (137-145) mmol/L Calcium 8.3 L (8.4-10.2) mg/dL CSF RBC 2370 H (0-10) u/L CSF Total Protein 62 H (12-60) mg/dL Microbiology - Last 24 Hours (Table) 06/23/19 10:55 CSF Gram Stain - Preliminary Cerebral Spinal Fluid CSF Culture - Preliminary 06/22/19 05:06 Blood Culture - Preliminary Blood No Growth after 48 hours 06/20/19 21:05 Blood Culture - Preliminary Blood No Growth after 72 hours 06/20/19 23:33 Urine Culture - Final Urine,Voided Escherichia coli 06/21/19 14:40 Group A Strep Throat Culture - Final Throat Assessment and Plan Plan: 1. Chest pain, possible unstable angina. Acute cardiac syndrome ruled out. Status post heart catheterization with stable coronary artery disease and patent stent in the RCA and mild to moderate disease in the diagonal. Continue aspirin 81 mg daily, Lipitor, Coreg. 2. Migraine headache, uncontrolled. Patient will be order for morphine 5 mg IV 1 and Zofran as needed for nausea. Toradol added as scheduled. 3. Left facial droop with slurred speech and Dizziness with metabolic encephalopathy. Concern for meningitis or viral encephalitis, possible contrast-induced encephalopathy. Dr. Ramsey consult added. Patient is currently on acyclovir, ceftriaxone, vancomycin. Lumbar puncture completed this morning. Awaiting results. Possible transfer out of the intensive care unit later today. 4. History of coronary artery disease status post stent placement in RCA. Continue as in #1. 5. Hypertension, hypertensive cardio vascular disease with left ventricular hypertrophy. Continue Norvasc 5 mg at bedtime, Coreg 25 mg twice daily, hydrochlorothiazide 25 mg daily, losartan 50 mg daily, clonidine decreased to 0.2 mg 3 times daily. 6. Recurrent TIA with 70% carotid stenosis internal carotid artery following with Dr. Londono. Continue aspirin, Lipitor for secondary prevention. 7. Parkinson's disease, stable. Continue Keppra, Robaxin. 8. 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 9. Obstructive sleep apnea with CPAP 10. History of prostate cancer status post surgery and chemotherapy, radiation, stable. 11. Glaucoma. Continue eyedrops. Discharge plan: Subacute rehab at [facility] or [facility]. Impression and plan of care have been directed as dictated by the signing physician. Suly Gallo nurse practitioner acting as scribe for signing physician.
--- NOTE | 2019-06-24 13:31 | P.PN ---
Subjective Progress Note Date: 06/24/19 Principal diagnosis: Mental status change, most likely secondary to contrast induced encephalopathy. This is an 83-year-old patient with history of coronary artery disease, previous history of CVA/TIA, hypertension, dyslipidemia, upchucked of sleep apnea, Parkinson's disease and peripheral vascular disease. Patient had reviewed his history of stenting of his RCA and a recent recatheterization 6 or 7 months ago related to his symptoms of unstable angina. His RCA stent was found to be patent, and redness of 50-60% disease in the second diagonal branch. Patient presents to the hospital on 06/18/2019 with complaints of chest pain, associated with shortness of breath. There were no acute ischemic changes on the EKG, chest x-ray was negative, most recent echocardiogram from June 2018 showed EF of 50-55%, moderate aortic valve sclerosis, mild aortic stenosis, mild TR. In view of patient's symptoms suggestive of unstable angina, patient underwent cardiac catheterization on the 06/20/2019, which showed stable coronary artery disease with patent stent in the RCA and mild to moderate disease in the diagonal coronary artery, and medical treatment was recommended. Following the catheterization, patient developed left-sided facial weakness, and expressive aphasia and confusion. But he is moving all 4 extremities. His initial NIH score was 8, subsequently increased to 13. Brain CT without contrast showed age-related atrophic and chronic small vessel disease without acute intracranial process. Angiography CT of the head and neck showed no significant abnormality, MRI of the brain showed no evidence of recent infarct and persistent mild to moderate diffuse cervical atrophy with advanced chronic small vessel ischemic changes. Patient was placed in the intensive care unit for close neurological monitoring. His symptoms of speech slurring, and expressive aphasia persists he is moving all 4 extremities, he states his name correctly, however when asked about his age he keeps repeating his name. At times he is having difficulty following command. Patient was not a candidate for thrombolytics related to his elevated PTT. Neurology consultation is pending Patient was reevaluated today on 06/21/2019, remains in the ICU, in no distress, but definitely confused. Patient would say his name repeatedly, does not follow any instructions. Spiked a fever last night, and his urine was noted to be infected with pyuria and bacteriuria, hence I started the patient today on Rocephin. Repeat CT of the brain showed no evidence of CVA. The neurologist on the case believes the patient had mostly metabolic encephalopathy could be related to his contrast media or related to his urinary tract infection hence she is now off the case. His mental status is definitely worse today compared to yesterday. And I was approached by family members regarding possibly transferring the patient, I explained to them that this should be discussed with the admitting physician. In the meantime I will continue his IV fluid, started the patient on antibiotics in the form of Rocephin, and we'll continue to monitor the patient in the ICU. WBC count today is 12.6 hemoglobin is 12.2 ABG showed a pO2 of 63 pCO2 of 33 pH of 7.46. Sodium is noted to be a bit low at 1 30 otherwise his labs are unremarkable. Urinalysis was noted there is evidence of hematuria bacteriuria and pyuria. Chest x-ray showed mostly bibasilar atelectasis. Strongly doubt pneumonia as the patient has no clinical symptoms of cough or shortness of breath. His pO2 is marginal mostly because of atelectasis. Patient was reevaluated today on 06/22/2019, remains in the ICU, had intermittent episodes of fevers, lumbar puncture was attempted yesterday, but was not successful. Neurologically the patient is making a significant improvement, he is being treated for a urinary tract infection, he is also being treated by infectious disease for presumptive sepsis and encephalitis. He is empirically on acyclovir, he is also on Rocephin and vancomycin. Today the patient is more awake, he is more responsive, he knew his name, knew exactly what he was, he even a knew the name of the president. This is a dramatic improvement compared to 24 hours ago, hence I believe the patient most likely had contrast-induced encephalopathy. Blood cultures are pending. Urine cultures are pending. Th roat culture was positive for group A streptococcus, most likely streptococcus. pyogenes, questionable clinical significance . Labs were reviewed patient had WBC count of 15.2 hemoglobin of 10.5. Sodium remains low at 130, renal profile is normal. Patient had a temp of 101 yesterday, his temperature today is 98.2. Patient was reevaluated today on , remains in the intensive care unit, hemodynamically stable, mental status is significantly improved over the last 2 days. He is even much better today compared to yesterday. Again he knew people around him well, he knew the year, oriented to place, and he knew the name of the president. Significant improvement noted, hence this more or less fits into a picture of contrast induced encephalopathy. Patient remains on multiple antib iotics for presumptive viral or bacterial encephalitis, and I did recommend that we'll proceed with the lumbar puncture to put the issue to rest, and possibly discontinue all antiviral therapy and meningitis treatment if the spinal fluid comes back unremarkable and I expect it will. We'll continue treatment of his urinary tract infection which is a gram-negative infection and that by itself alone explains his fevers. Reevaluated today on 06/24/2019, remains in the intensive care unit, he had sl ight drop in his urine output last night, and his IV fluid was increased. Responded well to hydration. His spinal fluid studies so far are negative, waiting for a final report on his PCR for herpes simplex. Patient remains on acyclovir, he is also on Rocephin, he does have E. coli urinary tract infection, and his vancomycin was discontinued because we practically speaking ruled out bacterial meningitis. Mental status is about the same as it was yesterday. Patient remains slow, but alert oriented 3. Follows simple instructions. In no form of respiratory distress. CBC is normal WBC count is 5.6 hemoglobin is 10.4 lites are normal renal profile is normal. Basic report on the spinal fluid is normal. Initial report on the serology including HSV-1 DNA PCR is negative HSV-2 DNA PCR is negative, hence I feel the infectious disease specialist would likely discontinue acyclovir. Objective - Vital Signs Vital signs: Vital Signs Temp 98.2 F 06/24/19 08:00 Pulse 58 L 06/24/19 10:00 Resp 22 06/24/19 10:00 BP 133/77 06/24/19 10:00 Pulse Ox 96 06/24/19 10:00 Intake & Output 06/23/19 06/24/19 06/24/19 18:59 06:59 18:59 Intake Total 1070 2325 925 Output Total 2240 2775 880 Balance -1170 -450 45 Weight 96.9 kg Intake: IV 1020 2125 525 0.9 470 Acyclovir Sodium 1,000 mg 250 250 In Sodium Chloride 0.9% 250 ml @ 270 mls/hr [facility] Rx#:[id number] Potassium Chloride 10 meq 400 In Water For Injection 1 100ml.bag @ 100 mls/hr IV[facility] Rx#: [id number] Sodium Chloride 0.9% 1, 300 1375 375 000 ml @ 125 mls/hr IV . Q8H [facility] Rx#:[id number] cefTRIAXone 2 gm In 50 Sodium Chloride 0.9% 50 ml @ 100 mls/hr IVPB Q24HR [facility] Rx#:[id number] levETIRAcetam IV 500 mg 100 100 In Sodium Chloride 0.9% 100 ml @ 400 mls/hr IVPB HS [facility] Rx#:[id number] Oral 50 200 400 Output: Urine 2240 2775 880 Other: Voiding Method Indwelling Catheter Indwelling Catheter Indwelling Catheter - Exam GENERAL EXAM: Revealed 83-year-old white male, not confused anymore, slow, but oriented to time place and person. HEENT: PERRLA, EOMI, no icterus. Dry mucous membranes, no neck masses, no JVD, no stridor. No evidence of proptosis. No facial asymmetry. CHEST: No chest wall deformity. Symmetrical expansion. LUNGS: Diminished breath sounds at the bases no crackles or rhonchi or wheezes.. CVS: Regular rate and rhythm, normal S1 and S2, no gallops, no murmurs, no rubs ABDOMEN: Soft, nontender. No hepatosplenomegaly, normal bowel sounds, no guarding or rigidity. EXTREMITIES: No clubbing, no edema, no cyanosis, 2+ pulses and upper and lower extremities. MUSCULOSKELETAL: normal bulk and tone, spontaneous movement noted to be well in all 4 extremities. SPINE: No scoliosis or deformity SKIN: No rashes CENTRAL NERVOUS SYSTEM: Slow, blunt affect, alert oriented 3. - Labs CBC & Chem 7: 06/24/19 05:07 06/24/19 05:07 Labs: Abnormal Lab Results - Last 24 Hours (Table) 06/23/19 06/24/19 06/24/19 Range/Units 10:55 05:07 05:07 RBC 3.26 L (4.30-5.90) m/uL Hgb 10.4 L (13.0-17.5) gm/dL Hct 29.8 L (39.0-53.0) % Plt Count 140 L (150-450) k/uL Lymphocytes # 0.5 L (1.0-4.8) k/uL Sodium 132 L (137-145) mmol/L Calcium 8.3 L (8.4-10.2) mg/dL CSF RBC 2370 H (0-10) u/L CSF Total Protein 62 H (12-60) mg/dL Microbiology - Last 24 Hours (Table) 06/23/19 10:55 CSF Gram Stain - Preliminary Cerebral Spinal Fluid CSF Culture - Preliminary 06/22/19 05:06 Blood Culture - Preliminary Blood No Growth after 48 hours 06/20/19 21:05 Blood Culture - Preliminary Blood No Growth after 72 hours 06/20/19 23:33 Urine Culture - Final Urine,Voided Escherichia coli Assessment and Plan Assessment: Impression: 1: Mental status change, most likely secondary to contrast induced encephalopathy, based on the CSF studies, we basically ruled out bacterial and viral encephalitis/meningitis. Hence suggest stopping acyclovir, stopping vancomycin, continue Rocephin for his urinary tract infection. #3. Coronary artery disease, with previous stenting to the RCA, status post cardiac catheterization. #4. Previous history of CVA in 2004 with slight left facial droop, multiple TIAs #5. Hypertension #6. Dyslipidemia #7. Obstructive sleep apnea #8. Parkinson's disease #9. History of prostate cancer with surgical resection followed by chemotherapy and radiation #10. Carotid stenosis, CT angiography of the head and neck showed right ICA of 60% and left ICA of 40-50% #11. Never smoker #12. Previous history of lower GI bleeding Recommendation: Discussed the findings of the spinal tap so far with the family, updated on his condition, I would likely transfer the patient out of the ICU within the next 24 hours, patient will likely benefit from rehabilitation early next week at [facility] if possible. Discharge planning for early next week is in progress. Infectious disease to follow on the final report on the spinal fluid, and I have a feeling that his acyclovir will be discontinued. Time with Patient: Less than 30
[2019-06-24] MEDS: IPRATROPIUM-ALBUTEROL 3 ML NEB INHALATION SCH ×3 (14:16→19:38)
[2019-06-24] MEDS ORDERED: Potassium Replacement Protocol 1 EACH MISC MISCELLANE PRN (17:52)
[2019-06-24] MEDS: ACETAMINOPHEN TAB 325 MG TAB PO PRN (21:35)
[2019-06-24] MEDS: PANTOPRAZOLE 40 MG TABLET PO SCH (21:35)
[2019-06-24] MEDS: LATANOPROST 0.005% OPHTH DROPS 2.5 ML BTL BOTH EYES SCH (21:36)
[2019-06-24] MEDS: levETIRAcetam IV 500 MG in SODIUM CHLORIDE 0.9% 100 ML IVPB SCH (21:48)
[2019-06-25] MEDS: ACETAMINOPHEN TAB 325 MG TAB PO PRN ×2 (04:15→19:02)
[2019-06-25 04:51] LABS: HCT 30.9 % (39.0-53.0); HGB 9.9 gm/dL (13.0-17.5); MCH 30.3 pg (25.0-35.0); MCHC 31.9 g/dL (31.0-37.0); MCV 95.2 fL (80.0-100.0); Mean Platelet Volume 7.5; Platelet Count 171 k/uL (150-450); RBC 3.25 m/uL (4.30-5.90); RDW 12.7 % (11.5-15.5); WBC 5.8 k/uL (3.8-10.6)
[2019-06-25 05:06] LABS: Calcium 8.3 mg/dL (8.4-10.2); Potassium 3.7 mmol/L (3.5-5.1)
[2019-06-25] MEDS: KETOROLAC 30 MG/ML 1 ML VIAL IVP SCH ×4 (06:21→23:20)
[2019-06-25] MEDS: SODIUM CHLORIDE 0.9% 1,000 ML IV SCH ×2 (06:23→20:45)
[2019-06-25] MEDS: CARVEDILOL 12.5 MG TAB PO SCH ×2 (06:30→17:18)
[2019-06-25] MEDS ORDERED: POTASSIUM CHLORIDE ER 20 MEQ TAB.ER PO SCH (07:00)
[2019-06-25] MEDS: IPRATROPIUM-ALBUTEROL 3 ML NEB INHALATION SCH ×4 (07:47→19:02)
[2019-06-25] MEDS: amLODIPine 5 MG TAB PO SCH ×2 (09:49→20:44)
[2019-06-25] MEDS: LOSARTAN 50 MG TAB PO SCH (09:49)
[2019-06-25] MEDS: ATORVASTATIN 80 MG TAB PO SCH (09:49)
[2019-06-25] MEDS: HYDROCHLOROTHIAZIDE 25 MG TAB PO SCH (09:49)
[2019-06-25] MEDS: ASPIRIN 81 MG PO SCH (09:49)
[2019-06-25] MEDS: FUROSEMIDE 40 MG TAB PO SCH (09:49)
[2019-06-25] MEDS: FERROUS SULFATE 325 MG TAB PO SCH (09:49)
[2019-06-25] MEDS: BRIMONIDINE TARTRATE 0.2% DROPS 5 ML BTL LEFT EYE SCH ×2 (09:50→20:44)
[2019-06-25] MEDS: TIMOLOL 0.5% OPHTH DROPS 5 ML BTL LEFT EYE SCH ×2 (09:50→20:44)
[2019-06-25] MEDS: cloNIDine HCL 0.2 MG TAB PO SCH ×2 (09:50→20:44)
[2019-06-25] MEDS: PRAMIPEXOLE 0.5 MG TAB PO SCH ×3 (09:50→20:44)
[2019-06-25] MEDS: levETIRAcetam IV 250 MG in SODIUM CHLORIDE 0.9% 100 ML IVPB SCH (09:51)
[2019-06-25] MEDS: ACYCLOVIR SODIUM 1,000 MG in SODIUM CHLORIDE 0.9% 250 ML IVPB SCH (09:53)
--- NOTE | 2019-06-25 10:16 | P.PN ---
Subjective Progress Note Date: 06/25/19 This is an 83-year-old male patient of Dr. Lawson and Dr. Byrd with a previous medical history significant for CAD status post stent placement of the RCA in 2010 while in [place]. He had a repeat catheterization 6-7 months after that secondary to unstable angina. Catheterization revealed a patent stent in the RCA with evidence of 50-60% disease in the second diagonal branch. Past medical history of hypertension and hypertensive cardiovascular disease with left ventricular hypertrophy, obstructive sleep apnea with CPAP, prostate cancer status post surgery, chemotherapy and radiation therapy, recurrent TIA, 70% carotid stenoses internal carotid artery follows with Dr. 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 He does have some weakness on the left lower extremity side which is chronic. Patient follows with a insurance adjuster in [place], [place], and was last seen 6 months ago. Patient complains of chest pain for the past 3 days. He denies any dizziness or lightheadedness. He has some mild shortness of breath and nausea. When he lies down this seems to help alleviate symptoms. Patient is also complaining of migraine headache which she states once is above the level #7 he is unable to tolerate it. He states he normally comes into the ER and receives morphine 5 mg and Zofran which will be ordered. Patient came into [facility] emergency center. Troponins negative 3, WBC 4.1, hemoglobin 13.1, platelets 129, sodium 127, potassium 4.7, creatinine 0.68, magnesium 1.8, LDL 121. EKG is sinus rhythm with no acute ST-T wave changes. Chest x-ray was negative for any acute cardiopulmonary process. Most recent echocardiogram obtained June 2018 reveals preserved LV systolic function with ejection fraction 50-55%, moderate aortic valve sclerosis, mild aortic stenosis with a mean gradient of 9 mmHg, mild TR and mild pulmonary hypertension with an RVSP of 27 mmHg. patient was placed on the observation unit and seen by cardiology with plan for heart catheterization tomorrow. 06/20 patient underwent cardiac cath today and was found to have stable coronary artery disease with patent stent in the RCA and mild to moderate disease in the diagonal. Patient was found to be incoherent with facial droop involving the left face so now after the cardiac cath. CTA was ordered that did not show any major vessel disease. Patient was not a Candidate for Thrombectomy. PT Levels Drawn If Less Than 30 in the next 25 minutes with the meet the criteria for TPA. Stat EEG and MRI has been ordered. Neurology consult placed for acute stroke. 06/21: The patient is seen in the intensive care unit. CAT scan of the brain to showed related atrophy and chronic small vessel ischemia without acute intracranial process. CT angiogram revealed right internal carotid artery 60% and left 40-50%. MRI of the brain showed no evidence of recent infarct. Persistent mild to moderate diffuse cerebral atrophy with advanced chronic small vessel ischemic change. No significant change. Possible old right padilla radiata infarct. He has been hemodynamically stable. His mental status has worsened from yesterday. He is now unable to follow commands. He is answering yes and mumbling to questions. He did have a fever up to 102.2. Blood culture and urine culture in progress. Patient did have a Olivo catheter placed which was very traumatic and initially drained a significant amount of blood. Urine output remains dark and hematuria. Patient was seen by neurology and has been signed off the case. Discussed case with Dr. Ramsey and with the patient's daughter and son-in-law at the bedside. We have added in consult for Dr. Ramsye. Ceftriaxone increased 2 g twice daily for possible meningitis/encephalitis. Acyclovir to be started IV by Dr. Ramsey. Initially planned for diagnostic lumbar puncture but because patient was on Plavix, last dose was on June 18 and LP has been postponed and will not be done until patient is off Plavix for a total of 7 days. At this time, we'll plan to monitor patient overnight and if no improvement of his mental status, anticipate transfer to tertiary care center.. 06/22: EEG revealed limited study abnormal consistent with toxo metabolic encephalopathy. Patient remains in the intensive care unit. His mental status is significantly improved this morning. Patient is able to answer to person pl moy. Last fever was documented at 8 PM yesterday. Heart rate is in the 60s and blood pressure 131/79, pulse ox 90% on 4 L nasal cannula. WBC is 15.2, hemoglobin 10.5 and platelet count 125. Sodium 1:30, potassium 3.8, chloride 102, CO2 21, BUN 21 and creatinine 0.62. Blood sugar 117. C-reactive protein was 172. TSH 1.040. Influenza testing was negative. HSV I IgG was positive. Group a strep rapid screen was negative. Blood cultures no growth after 24 hours. Urine cultures gram-negative bacilli. Group A strep throat culture is in process. Patient is currently on acyclovir, ceftriaxone at 2 g every 12 hours and vancomycin. Patient continues to complain of severe headache for whi ch Toradol has been added as scheduled. 06/23: Patient remains in intensive care unit. He has been afebrile for greater than 24 hours. Heart rate is 75, blood pressure 144/82 and pulse ox 94% on 4 L nasal cannula. Repeat white count is down to 9.7, hemoglobin 10.1 and platelet count 125. Sodium 134, potassium 3.4 will be replaced, chloride 103, CO2 22, BUN 15 creatinine 0.59. Urine cultures positive for gram-negative bacilli and initial blood culture from June 20 are showing no growth at 48 hours. This morning, Dr. SHAN Butcher has ordered a dose of IV Lasix 20 mg every [address] Ramsey has recommended continuing acyclovir, vancomycin and Rocephin. Diagnostic lumbar puncture was completed this morning with only a small amount of sternal spinal fluid return. Most likely only vital testing will be completed. Patient's mental status remains much improved. He continues to have headache. Anticipate he will be able to be transferred out of the intensive care unit later today. 06/24: Patient remains in intensive care unit. He is cleared for transfer out of the intensive care unit today. He states his appetite has been poor and he does have some nausea and we will request Zofran be given now. He is congested and Lasix has been ordered by cardiology at 20 mg IV every 8 hours. We will also adding DuoNeb treatments scheduled. Patient states that he is feeling much improved today and also states he is much improved. His headache is now down to a number for which is the best since his admission. Patient has been afebrile. Heart rate is 58, blood pressure 133/77, pulse ox 96% on room air. White count is normal 5.6, hemoglobin 10.4, platelet count improving to 140. Sodium 132, potassium 3.5, chloride 99, CO2 is 26, BUN 16 creatinine 0.96. Cerebral spinal fluid hazy, RBCs 2370, total nucleated cells 1, crenated cells 50, fresh RBCs 50, glucose 48, total protein 62. HSV 1 and 2 PCR not detected and spinal fluid. Cerebrospinal fluid culture is in progress. Blood culture showing no growth at 72 hours and second culture at 48 hours. Urine culture as noted before was E. coli.. Patient is continued on acyclovir, Rocephin, vancomycin. Patient was evaluated by PT and OT with recommendations for subacute rehab. Patient and his has chosen [facility] or [facility]. Anticipate probable discharge on Wednesday. 06/25: The patient states that he is feeling much better today, headache is improved, strength is improved. He has been afebrile, heart rate in the 50s and 60s, pulse ox 93% to 99% on room air, blood pressure 148/78. Patient to be t ransferred out of the intensive care unit. Anticipate probable discharge in the next 24 hours. Acyclovir and vancomycin have been discontinued. Objective - Vital Signs Vital signs: Vital Signs Temp 98.1 F 06/25/19 08:00 Pulse 61 06/25/19 09:00 Resp 18 06/25/19 09:00 BP 137/104 06/25/19 09:00 Pulse Ox 93 L 06/25/19 09:00 Intake & Output 06/24/19 06/25/19 06/25/19 18:59 06:59 18:59 Intake Total 1800 1125 375 Output Total 20145 520 Balance -215 -680 -145 Weight 97.5 kg Intake: IV 1200 925 225 Sodium Chloride 0.9% 1, 1050 825 225 000 ml @ 75 mls/hr IV . [id number] MOI Rx#:[id number] cefTRIAXone 2 gm In 50 Sodium Chloride 0.9% 50 ml @ 100 mls/hr IVPB Q24HR MOI Rx#:[id number] levETIRAcetam IV 500 mg 100 100 In Sodium Chloride 0.9% 100 ml @ 400 mls/hr IVPB HS MOI Rx#:[id number] Oral 600 200 150 Output: Urine 2014 1805 520 Other: Voiding Method Indwelling Catheter Indwelling Catheter Indwelling Catheter # Bowel Movements 1 - Exam Review Of Systems: Constitutional: No fever, no chills, no night sweats. No weight change. Repor ts weakness, fatigue or lethargy. No daytime sleepiness. EENT: Denies headache. Denies photophobia. No nasal drainage or congestion. No epistaxis. No sore throat. Lungs: No shortness of breath, cough, no sputum production. No wheezing. Cardiovascular: No chest pain, no lower extremity edema. No palpitations. No paroxysmal nocturnal dyspnea. No orthopnea. No lightheadedness or dizziness. No syncopal episodes. Abdominal: No abdominal pain. No nausea, vomiting. No diarrhea. No constip ation. No bloody or tarry stools.. No loss of appetite. Genitourinary: No dysuria, increased frequency, urgency. No urinary retention. Musculoskeletal: No myalgias. Reports muscle weakness-improved, no gait dysfunction, no frequent falls. No back pain. No neck pain. Integumentary: No wounds, no lesions. No rash or pruritus. No unusual bruising. No change in hair or nails. Neurologic: No aphasia. No facial droop. No change in mentation. No head injury. No headache. No paralysis. No paresthesia. Psychiatric: No depression. No anxiety. No mood swings. Endocrine: No abnormal blood sugars. No weight change. No excessive sweating or thirst. Physical exam: - Constitutional General appearance: cooperative, no acute distress - EENT Eyes: anicteric sclerae, PERRLA, normal appearance ENT: hearing grossly normal Unable to check for nuchal rigidity as patient is uncooperative. - Neck Neck: no lymphadenopathy, normal ROM, no other, no rigidity, no stridor, no thyromegaly - Respiratory Respiratory: bilateral: CTA, negative: diminished, dullness, rales, rhonchi - Cardiovascular Rhythm: regular Heart sounds: normal: S1, S2 Abnormal Heart Sounds: T/5 systolic murmur, no diastolic murmur, no rub, no S3 Gallop, no S4 Gallop, no click, no other - Gastrointestinal General gastrointestinal: normal bowel sounds, soft - Integumentary Integumentary: no rash - Neurologic Neurologic: CNII-XII intact - Musculoskeletal Musculoskeletal: Strength equal and strong bilaterally - Psychiatric Psychiatric: Alert and oriented 3, appropriate affect. - Labs CBC & Chem 7: 06/25/19 04:04 06/25/19 04:00 Labs: Abnormal Lab Results - Last 24 Hours (Table) 1006/25/19 06/25/19 Range/Units 17:08 04:00 04:04 RBC 3.25 L (4.30-5.90) m/uL Hgb 9.9 L (13.0-17.5) gm/dL Hct 30.9 L (39.0-53.0) % Sodium 132 L (137-145) mmol/L Potassium 3.4 L (3.5-5.1) mmol/L Glucose 101 H (74-99) mg/dL Calcium 8.3 L (8.4-10.2) mg/dL Microbiology - Last 24 Hours (Table) 06/22/19 05:06 Blood Culture - Preliminary Blood No Growth after 72 hours 06/20/19 21:05 Blood Culture - Preliminary Blood No Growth after 96 hours 06/23/19 10:55 CSF Gram Stain - Preliminary Cerebral Spinal Fluid CSF Culture - Preliminary Assessment and Plan Plan: 1. Chest pain, possible unstable angina. Acute cardiac syndrome ruled out. Status post heart catheterization with stable coronary artery disease and patent stent in the RCA and mild to moderate disease in the diagonal. Continue aspirin 81 mg daily, Lipitor, Coreg. 2. Migraine headache, uncontrolled. Patient will be order for morphine 5 mg IV 1 and Zofran as needed for nausea. Toradol added as scheduled. 3. Left facial droop with slurred speech and Dizziness with metabolic encephalopathy. Concern for meningitis or viral encephalitis, possible contrast-induced encephalopathy. Dr. Ramsey consult added. Patient is currently on acyclovir, ceftriaxone, vancomycin. Lumbar puncture completed this morning. Awaiting results. Possible transfer out of the intensive care unit later today. 4. History of coronary artery disease status post stent placement in RCA. Continue as in #1. 5. Hypertension, hypertensive cardio vascular disease with left ventricular hypertrophy. Continue Norvasc 5 mg at bedtime, Coreg 25 mg twice daily, hydrochlorothiazide 25 mg daily, losartan 50 mg daily, clonidine decreased to 0.2 mg 3 times daily. 6. Recurrent TIA with 70% carotid stenosis internal carotid artery following with Dr. Londono. Continue aspirin, Lipitor for secondary prevention. 7. Parkinson's disease, stable. Continue Keppra, Robaxin. 8. 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 9. Obstructive sleep apnea with CPAP 10. History of prostate cancer status post surgery and chemotherapy, radiation, stable. 11. Glaucoma. Continue eyedrops. Discharge plan: Subacute rehab at [facility] on Wednesday. Impression and plan of care have been directed as dictated by the signing physician. Suly Gallo nurse practitioner acting as scribe for signing physician.
--- NOTE | 2019-06-25 12:10 | P.PN ---
Subjective Progress Note Date: 06/25/19 Principal diagnosis: Mental status change, most likely secondary to contrast induced encephalopathy. This is an 83-year-old patient with history of coronary artery disease, previous history of CVA/TIA, hypertension, dyslipidemia, upchucked of sleep apnea, Parkinson's disease and peripheral vascular disease. Patient had reviewed his history of stenting of his RCA and a recent recatheterization 6 or 7 months ago related to his symptoms of unstable angina. His RCA stent was found to be patent, and redness of 50-60% disease in the second diagonal branch. Patient presents to the hospital on 06/18/2019 with complaints of chest pain, associated with shortness of breath. There were no acute ischemic changes on the EKG, chest x-ray was negative, most recent echocardiogram from June 2018 showed EF of 50-55%, moderate aortic valve sclerosis, mild aortic stenosis, mild TR. In view of patient's symptoms suggestive of unstable angina, patient underwent cardiac catheterization on the 06/20/2019, which showed stable coronary artery disease with patent stent in the RCA and mild to moderate disease in the diagonal coronary artery, and medical treatment was recommended. Following the catheterization, patient developed left-sided facial weakness, and expressive aphasia and confusion. But he is moving all 4 extremities. His initial NIH score was 8, subsequently increased to 13. Brain CT without contrast showed age-related atrophic and chronic small vessel disease without acute intracranial process. Angiography CT of the head and neck showed no significant abnormality, MRI of the brain showed no evidence of recent infarct and persistent mild to moderate diffuse cervical atrophy with advanced chronic small vessel ischemic changes. Patient was placed in the intensive care unit for close neurological monitoring. His symptoms of speech slurring, and expressive aphasia persists he is moving all 4 extremities, he states his name correctly, however when asked about his age he keeps repeating his name. At times he is having difficulty following command. Patient was not a candidate for thrombolytics related to his elevated PTT. Neurology consultation is pending Patient was reevaluated today on 06/21/2019, remains in the ICU, in no distress, but definitely confused. Patient would say his name repeatedly, does not follow any instructions. Spiked a fever last night, and his urine was noted to be infected with pyuria and bacteriuria, hence I started the patient today on Rocephin. Repeat CT of the brain showed no evidence of CVA. The neurologist on the case believes the patient had mostly metabolic encephalopathy could be related to his contrast media or related to his urinary tract infection hence she is now off the case. His mental status is definitely worse today compared to yesterday. And I was approached by family members regarding possibly transferring the patient, I explained to them that this should be discussed with the admitting physician. In the meantime I will continue his IV fluid, started the patient on antibiotics in the form of Rocephin, and we'll continue to monitor the patient in the ICU. WBC count today is 12.6 hemoglobin is 12.2 ABG showed a pO2 of 63 pCO2 of 33 pH of 7.46. Sodium is noted to be a bit low at 1 30 otherwise his labs are unremarkable. Urinalysis was noted there is evidence of hematuria bacteriuria and pyuria. Chest x-ray showed mostly bibasilar atelectasis. Strongly doubt pneumonia as the patient has no clinical symptoms of cough or shortness of breath. His pO2 is marginal mostly because of atelectasis. Patient was reevaluated today on 06/22/2019, remains in the ICU, had intermittent episodes of fevers, lumbar puncture was attempted yesterday, but was not successful. Neurologically the patient is making a significant improvement, he is being treated for a urinary tract infection, he is also being treated by infectious disease for presumptive sepsis and encephalitis. He is empirically on acyclovir, he is also on Rocephin and vancomycin. Today the patient is more awake, he is more responsive, he knew his name, knew exactly what he was, he even a knew the name of the president. This is a dramatic improvement compared to 24 hours ago, hence I believe the patient most likely had contrast-induced encephalopathy. Blood cultures are pending. Urine cultures are pending. Th roat culture was positive for group A streptococcus, most likely streptococcus. pyogenes, questionable clinical significance . Labs were reviewed patient had WBC count of 15.2 hemoglobin of 10.5. Sodium remains low at 130, renal profile is normal. Patient had a temp of 101 yesterday, his temperature today is 98.2. Patient was reevaluated today on , remains in the intensive care unit, hemodynamically stable, mental status is significantly improved over the last 2 days. He is even much better today compared to yesterday. Again he knew people around him well, he knew the year, oriented to place, and he knew the name of the president. Significant improvement noted, hence this more or less fits into a picture of contrast induced encephalopathy. Patient remains on multiple antib iotics for presumptive viral or bacterial encephalitis, and I did recommend that we'll proceed with the lumbar puncture to put the issue to rest, and possibly discontinue all antiviral therapy and meningitis treatment if the spinal fluid comes back unremarkable and I expect it will. We'll continue treatment of his urinary tract infection which is a gram-negative infection and that by itself alone explains his fevers. Reevaluated today on 06/24/2019, remains in the intensive care unit, he had sl ight drop in his urine output last night, and his IV fluid was increased. Responded well to hydration. His spinal fluid studies so far are negative, waiting for a final report on his PCR for herpes simplex. Patient remains on acyclovir, he is also on Rocephin, he does have E. coli urinary tract infection, and his vancomycin was discontinued because we practically speaking ruled out bacterial meningitis. Mental status is about the same as it was yesterday. Patient remains slow, but alert oriented 3. Follows simple instructions. In no form of respiratory distress. CBC is normal WBC count is 5.6 hemoglobin is 10.4 lites are normal renal profile is normal. Basic report on the spinal fluid is normal. Initial report on the serology including HSV-1 DNA PCR is negative HSV-2 DNA PCR is negative, hence I feel the infectious disease specialist would likely discontinue acyclovir. Reevaluated today on 06/25/2019, patient remains in the ICU, he is doing excellent, and his mental status is significantly improved almost back to his baseline.patient is relatively asymptomatic, he is afebrile, he is hemodynamically stable, he is on room air and O2 saturation is in the 95% range. I plan to transfer the patient out of the ICU today, we have discontinued his vancomycin, acyclovir, and we kept him mostly on Rocephin for his UTI. Studies on the CSF came back all negative.all labs from today were reviewed. Objective - Vital Signs Vital signs: Vital Signs Temp 98.1 F 06/25/19 08:00 Pulse 54 L 06/25/19 11:56 Resp 21 06/25/19 11:00 BP 139/87 06/25/19 11:00 Pulse Ox 95 06/25/19 11:00 Intake & Output 06/24/19 06/25/19 06/25/19 18:59 06:59 18:59 Intake Total 1799 1125 525 Output Total 2014 Balance -215 -680 -145 Weight 97.5 kg Intake: IV 1200 925 375 Sodium Chloride 0.9% 1, 1050 825 375 000 ml @ 75 mls/hr IV . [id number] MOI Rx#:[id number] cefTRIAXone 2 gm In 50 Sodium Chloride 0.9% 50 ml @ 100 mls/hr IVPB Q24HR MOI Rx#:[id number] levETIRAcetam IV 500 mg 100 100 In Sodium Chloride 0.9% 100 ml @ 400 mls/hr IVPB HS MOI Rx#:[id number] Oral 600 200 150 Output: Urine 2014 Other: Voiding Method Indwelling Catheter Indwelling Catheter Indwelling Catheter # Bowel Movements 1 - Exam GENERAL EXAM: Revealed 83-year-old white male, alert oriented 3. Asymptomatic. HEENT: PERRLA, EOMI, no icterus. Dry mucous membranes, no neck masses, no JVD, no stridor. No evidence of proptosis. No facial asymmetry. CHEST: No chest wall deformity. Symmetrical expansion. LUNGS: clear breath sound bilaterally no crackles or rhonchi or wheezes.. CVS: Regular rate and rhythm, normal S1 and S2, no gallops, no murmurs, no rubs ABDOMEN: Soft, nontender. No hepatosplenomegaly, normal bowel sounds, no guarding or rigidity. EXTREMITIES: No clubbing, no edema, no cyanosis, 2+ pulses and upper and lower extremities. MUSCULOSKELETAL: normal bulk and tone, spontaneous movement noted to be well in all 4 extremities. SPINE: No scoliosis or deformity SKIN: No rashes CENTRAL NERVOUS SYSTEM: alert oriented 3, no gross focal neurologic deficit - Labs CBC & Chem 7: 06/25/19 04:04 06/25/19 04:00 Labs: Abnormal Lab Results - Last 24 Hours (Table) 06/24/19 06/25/19 06/25/19 Range/Units 17:08 04:00 04:04 RBC 3.25 L (4.30-5.90) m/uL Hgb 9.9 L (13.0-17.5) gm/dL Hct 30.9 L (39.0-53.0) % Sodium 132 L (137-145) mmol/L Potassium 3.4 L (3.5-5.1) mmol/L Glucose 101 H (74-99) mg/dL Calcium 8.3 L (8.4-10.2) mg/dL Microbiology - Last 24 Hours (Table) 06/22/19 05:06 Blood Culture - Preliminary Blood No Growth after 72 hours 06/20/19 21:05 Blood Culture - Preliminary Blood No Growth after 96 hours 06/23/19 10:55 CSF Gram Stain - Preliminary Cerebral Spinal Fluid CSF Culture - Preliminary Assessment and Plan Assessment: Impression: 1: Mental status change, most likely secondary to contrast induced enceph alopathy, workup on the spinal fluid came back all negative, hence vancomycin and acyclovir were discontinued. #3. Coronary artery disease, with previous stenting to the RCA, status post cardiac catheterization. #4. Previous history of CVA in 2004 with slight left facial droop, multiple TIAs #5. Hypertension #6. Dyslipidemia #7. Obstructive sleep apnea #8. Parkinson's disease #9. History of prostate cancer with surgical resection followed by chemotherapy and radiation #10. Carotid stenosis, CT angiography of the head and neck showed right ICA of 60% and left ICA of 40-50% #11. Never smoker #12. Previous history of lower GI bleeding Recommendation: continue present treatment plan, discontinue vancomycin, discontinue acyclovir, transfer patient to a regular medical floor today, possible discharge planning to a rehab facility in the next 24 hours. updated on his condition. And yesterday I discussed his condition with the and the son at bedside. Time with Patient: Less than 30
[2019-06-25] MEDS ORDERED: FUROSEMIDE 20 MG TAB PO SCH ×2 (17:00→21:00)
--- NOTE | 2019-06-25 20:24 | PN ---
PROGRESS NOTE Mr. Rivera is doing much better today. He apparently may have had some encephalopathy related to contrast, although I am not sure about this. However, he has recovered completely. He is neurologically intact, responds to questions appropriately. I am switching from IV to oral Lasix, increase activity, continue telemetry and move him to the step-down unit. Vitals are stable. S1/S2 heard normally. Short systolic murmur noted. Lungs are clear. Abdomen and lower extremity exam unchanged. MMODL / IJN: [id number] /
[2019-06-25] MEDS: LATANOPROST 0.005% OPHTH DROPS 2.5 ML BTL BOTH EYES SCH (20:44)
[2019-06-25] MEDS: PANTOPRAZOLE 40 MG TABLET PO SCH (20:44)
[2019-06-25] MEDS: levETIRAcetam IV 500 MG in SODIUM CHLORIDE 0.9% 100 ML IVPB SCH (20:44)
[2019-06-26] MEDS: ACETAMINOPHEN TAB 325 MG TAB PO PRN ×2 (01:18→07:37)
[2019-06-26] MEDS: KETOROLAC 30 MG/ML 1 ML VIAL IVP SCH ×2 (05:28→11:09)
[2019-06-26] MEDS: levETIRAcetam IV 250 MG in SODIUM CHLORIDE 0.9% 100 ML IVPB SCH (07:36)
[2019-06-26] MEDS: LOSARTAN 50 MG TAB PO SCH (07:38)
[2019-06-26] MEDS: PRAMIPEXOLE 0.5 MG TAB PO SCH (07:38)
[2019-06-26] MEDS: FUROSEMIDE 40 MG TAB PO SCH (07:38)
[2019-06-26] MEDS: ATORVASTATIN 80 MG TAB PO SCH (07:38)
[2019-06-26] MEDS: FERROUS SULFATE 325 MG TAB PO SCH (07:38)
[2019-06-26] MEDS: HYDROCHLOROTHIAZIDE 25 MG TAB PO SCH (07:38)
[2019-06-26] MEDS: cloNIDine HCL 0.2 MG TAB PO SCH (07:38)
[2019-06-26] MEDS: CARVEDILOL 12.5 MG TAB PO SCH (07:38)
[2019-06-26] MEDS: amLODIPine 5 MG TAB PO SCH (07:38)
[2019-06-26] MEDS: ASPIRIN 81 MG PO SCH (07:39)
[2019-06-26] MEDS: BRIMONIDINE TARTRATE 0.2% DROPS 5 ML BTL LEFT EYE SCH (07:40)
[2019-06-26] MEDS: SODIUM CHLORIDE 0.9% 1,000 ML IV SCH (07:41)
[2019-06-26] MEDS: TIMOLOL 0.5% OPHTH DROPS 5 ML BTL LEFT EYE SCH (07:41)
[2019-06-26] MEDS: IPRATROPIUM-ALBUTEROL 3 ML NEB INHALATION SCH ×2 (07:53→11:02)
[2019-06-26 07:55] VITALS: BP 151/80; RESP 16; TEMP 98.4
[2019-06-26 11:13] VITALS: PULSE 70
--- NOTE | 2019-06-26 11:53 | P.DS ---
Providers Date of admission: 06/19/19 15:24 Expected date of discharge: 06/26/19 Attending physician: Sharri Nguyen Consults: 06/18/19 17:56 Consult Physician Urgent Consulting Provider: Kristine Frey Consult Reason/Comments: cp Do you want consulting provider notified?: Yes 06/20/19 13:23 Consult Physician Routine Consulting Provider: Lyndsey Green Consult Reason/Comments: code stroke, facial droop Do you want consulting provider notified?: Yes 06/20/19 16:01 Consult Physician Urgent Consulting Provider: Analy Arciniega Consult Reason/Comments: Stroke-ICU management Do you want consulting provider notified?: Yes 06/21/19 12:37 Consult Physician Routine Consulting Provider: Stephanie Ramsey Consult Reason/Comments: Fever possible encephalitis Do you want consulting provider notified?: Yes 06/21/19 12:46 Consult to Anesthesia Stat Consulting Provider: Anesthesia,Services Consult Reason/Comments: dx LP Primary care physician: [facility] Course: This is an 83-year-old male patient of Dr. Lawson and Dr. Byrd with a previous medical history significant for CAD status post stent placement of the RCA in 2010 while in [place]. He had a repeat catheterization 6-7 months after that secondary to unstable angina. Catheterization revealed a patent stent in the RCA with evidence of 50-60% disease in the second diagonal branch. Past medical history of hypertension and hypertensive cardiovascular disease with left ventricular hypertrophy, obstructive sleep apnea with CPAP, prostate cancer status post surgery, chemotherapy and radiation therapy, recurrent TIA, 70% carotid stenoses internal carotid artery follows with Dr. 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 He does have some weakness on the left lower extremity side which is chronic. Patient follows with a station attendant in [place], [place], and was last seen 6 months ago. Patient complains of chest pain for the past 3 days. He denies any dizziness or lightheadedness. He has some mild shortness of breath and nausea. When he lies down this seems to help alleviate symptoms. Patient is also complaining of migraine headache which she states once is above the l evel #7 he is unable to tolerate it. He states he normally comes into the ER and receives morphine 5 mg and Zofran which will be ordered. Patient came into [facility] emergency center. Troponins negative 3, WBC 4.1, hemoglobin 13.1, platelets 129, sodium 127, potassium 4.7, creatinine 0.68, magnesium 1.8, LDL 121. EKG is sinus rhythm with no acute ST-T wave changes. Chest x-ray was negative for any acute cardiopulmonary process. Most recent echocardiogram obtained June 2018 reveals preserved LV systolic function with ejection fraction 50-55%, moderate aortic valve sclerosis, mild aortic stenosis with a mean gradient of 9 mmHg, mild TR and mild pulmonary hypertension with an RVSP of 27 mmHg. patient was placed on the observation unit and seen by cardiology with plan for heart catheterization tomorrow. 06/20 patient underwent cardiac cath today and was found to have stable coronary artery disease with patent stent in the RCA and mild to moderate disease in the diagonal. Patient was found to be incoherent with facial droop involving the left face so now after the cardiac cath. CTA was ordered that did not show any major vessel disease. Patient was not a Candidate for Thrombectomy. PT Levels Drawn If Less Than 30 in the next 25 minutes with the meet the criteria for TPA. Stat EEG and MRI has been ordered. Neurology consult placed for acute stroke. 06/21: The patient is seen in the intensive care unit. CAT scan of the brain to showed related atrophy and chronic small vessel ischemia without acute intracranial process. CT angiogram revealed right internal carotid artery 60% and left 40-50%. MRI of the brain showed no evidence of recent infarct. Persistent mild to moderate diffuse cerebral atrophy with advanced chronic small vessel ischemic change. No significant change. Possible old right padilla radiata infarct. He has been hemodynamically stable. His mental status has worsened from yesterday. He is now unable to follow commands. He is answering yes and mumbling to questions. He did have a fever up to 102.2. Blood culture and urine culture in progress. Patient did have a Olivo catheter placed which was very traumatic and initially drained a significant amount of blood. Urine output remains dark and hematuria. Patient was seen by neurology and has been signed off the case. Discussed case with Dr. Ramsey and with the patient's daughter and son-in-law at the bedside. We have added in consult for Dr. Ramsey. Ceftriaxone increased 2 g twice daily for possible meningitis/encephalitis. Acyclovir to be started IV by Dr. Ramsey. Initially planned for diagnostic lumbar puncture but because patient was on Plavix, last dose was on June 18 and LP has been postponed and will not be done until patient is off Plavix for a total of 7 days. At this time, we'll plan to monitor patient overnight and if no improvement of his mental status, anticipate transfer to tertiary care center.. 06/22: EEG revealed limited study abnormal consistent with toxo metabolic encephalopathy. Patient remains in the intensive care unit. His mental status is significantly improved this morning. Patient is able to answer to person [employer]. Last fever was documented at 8 PM yesterday. Heart rate is in the 60s and blood pressure 131/79, pulse ox 90% on 4 L nasal cannula. WBC is 15.2, hemoglobin 10.5 and platelet count 125. Sodium 1:30, potassium 3.8, chloride 102, CO2 21, BUN 21 and creatinine 0.62. Blood sugar 117. C-reactive protein was 172. TSH 1.040. Influenza testing was negative. HSV I IgG was positive. Group a strep rapid screen was negative. Blood cultures no growth after 24 hours. Urine cultures gram-negative bacilli. Group A strep throat culture is in process. Patient is currently on acyclovir, ceftriaxone at 2 g every 12 hours and vancomycin. Patient continues to complain of severe headache for which Toradol has been added as scheduled. 06/23: Patient remains in intensive care unit. He has been afebrile for greater than 24 hours. Heart rate is 75, blood pressure 144/82 and pulse ox 94% on 4 L nasal cannula. Repeat white count is down to 9.7, hemoglobin 10.1 and platelet count 125. Sodium 134, potassium 3.4 will be replaced, chloride 103, CO2 22, BUN 15 creatinine 0.59. Urine cultures positive for gram-negative bacilli and initial blood culture from June 20 are showing no growth at 48 hours. This morning, Dr. SHAN Butcher has ordered a dose of IV Lasix 20 mg every [address] Ramsey has recommended continuing acyclovir, vancomycin and Rocephin. Diagnostic lumbar puncture was completed this morning with only a small amount of sternal spinal fluid return. Most likely only vital testing will be completed. Patient's mental status remains much improved. He continues to have headache. Anticipate he will be able to be transferred out of the intensive care unit later today. 06/24: Patient remains in intensive care unit. He is cleared for transfer out of the intensive care unit today. He states his appetite has been poor and he does have some nausea and we will request Zofran be given now. He is congested and Lasix has been ordered by cardiology at 20 mg IV every 8 hours. We will also adding DuoNeb treatments scheduled. Patient states that he is feeling much improved today and also states he is much improved. His headache is now down to a number for which is the best since his admission. Patient has been afebrile. Heart rate is 58, blood pressure 133/77, pulse ox 96% on room air. White count is normal 5.6, hemoglobin 10.4, platelet count improving to 140. Sodium 132, potassium 3.5, chloride 99, CO2 is 26, BUN 16 creatinine 0.96. Cerebral spinal fluid hazy, RBCs 2370, total nucleated cells 1, crenated cells 50, fresh RBCs 50, glucose 48, total protein 62. HSV 1 and 2 PCR not detected and spinal fluid. Cerebrospinal fluid culture is in progress. Blood culture showing no growth at 72 hours and second culture at 48 hours. Urine culture as noted before was E. coli.. Patient is continued on acyclovir, Rocephin, vancomycin. Patient was evaluated by PT and OT with recommendations for subacute rehab. Patient and his has chosen [facility] or [facility]. Anticipate probable discharge on Wednesday. 06/25: The patient states that he is feeling much better today, headache is improved, strength is improved. He has been afebrile, heart rate in the 50s and 60s, pulse ox 93% to 99% on room air, blood pressure 148/78. Patient to be transferred out of the intensive care unit. Anticipate probable discharge in the next 24 hours. Acyclovir and vancomycin have been discontinued. 06/26: The patient denies any new complaints. He has been afebrile. Heart rate 66, blood pressure 151/80, pulse ox 94% on room air. Patient feels that his mental status is still a bit fuzzy. Patient is able to answer all questions appropriately. Headache is improved today. The patient is agreeable for discharge to subacute rehab. Patient will be discharged to [facility] today in stable condition. Discharge diagnoses: 1. Chest pain, possible unstable angina. Acute cardiac syndrome ruled out. Status post heart catheterization with stable coronary artery disease and patent stent in the RCA and mild to moderate disease in the diagonal. 2. Migraine headache, uncontrolled. 3. Left facial droop with slurred speech and Dizziness with metabolic encephalopathy secondary to contrast-induced encephalopathy. 4. History of coronary artery disease status post stent placement in RCA. 5. Hypertension, hypertensive cardio vascular disease with left ventricular hypertrophy. 6. Recurrent TIA with 70% carotid stenosis internal carotid artery following with Dr. Londono. 7. Parkinson's disease, stable. 8. 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 9. Obstructive sleep apnea with CPAP 10. History of prostate cancer status post surgery and chemotherapy, radiation, stable. 11. Glaucoma. 12. Acute E. coli urinary tract infection. Discharge plan: Subacute rehab at [facility] on Wednesday under the care of Dr. Alonso. Impression and plan of care have been directed as dictated by the signing physician. Suly Gallo nurse practitioner acting as scribe for signing physician. Patient Condition at Discharge: Good Plan - Discharge Summary Discharge Rx Participant: No New Discharge Prescriptions: New Aspirin 81 mg PO DAILY chew Furosemide [Lasix] 40 mg PO DAILY tab Pramipexole [Mirapex] 0.5 mg PO TID tab amLODIPine [Norvasc] 5 mg PO BID tab Cefuroxime [Ceftin] 250 mg PO BID #12 tablet Continue cloNIDine HCL [Catapres] 0.05 mg PO BID Montelukast [Singulair] 10 mg PO HS Latanoprost [Xalatan 0.005%] 1 drop BOTH EYES HS Cholecalciferol [Vitamin D3 (25 Mcg = 1000 Iu)] 1,000 unit PO HS levETIRAcetam [Keppra] 500 mg PO HS levETIRAcetam [Keppra] 250 mg PO DAILY Hydrochlorothiazide 25 mg PO DAILY Butalb/Acetaminophen/Caffeine [Fioricet 50-325-40] 1 - 2 tab PO Q6H PRN MDD 6 TABS PRN Reason: Headache Ferrous Sulfate [Iron (65 MG Elemental)] 325 mg PO DAILY Losartan Potassium 50 mg PO DAILY Niacin 500 mg PO HS Rosuvastatin Calcium [Crestor] 40 mg PO HS #30 tab Omeprazole 40 mg PO HS Carvedilol 25 mg PO BID Brimonidine Tartrate/Timolol [Combigan 0.2%-0.5% Eye Drops] 1 drop LEFT EYE BID Methocarbamol [Robaxin-750] 750 mg PO QID PRN PRN Reason: Muscle Spasm Physio [place] 720mg 1 tab PO BID Ubidecarenone [Co Q-10] 200 mg PO DAILY Discontinued Meloxicam [Mobic] 15 mg PO HS Clopidogrel [Plavix] 75 mg PO DAILY Pramipexole [Mirapex] 1 mg PO BID Aspirin 325 mg PO DAILY tab amLODIPine [Norvasc] 5 mg PO HS Discharge Medication List cloNIDine HCL [Catapres] 0.05 mg PO BID 05/21/14 [History] Montelukast [Singulair] 10 mg PO HS 09/19/15 [History] Latanoprost [Xalatan 0.005%] 1 drop BOTH EYES HS 08/20/16 [History] Cholecalciferol [Vitamin D3 (25 Mcg = 1000 Iu)] 1,000 unit PO HS 03/05/17 [History] Hydrochlorothiazide 25 mg PO DAILY 02/07/18 [History] levETIRAcetam [Keppra] 250 mg PO DAILY 02/07/18 [History] levETIRAcetam [Keppra] 500 mg PO HS 02/07/18 [History] Butalb/Acetaminophen/Caffeine [Fioricet 50-325-40] 1 - 2 tab PO Q6H PRN MDD 6 TABS 07/14/18 [History] Ferrous Sulfate [Iron (65 MG Elemental)] 325 mg PO DAILY 07/14/18 [History] Losartan Potassium 50 mg PO DAILY 07/14/18 [History] Niacin 500 mg PO HS 07/14/18 [History] Rosuvastatin Calcium [Crestor] 40 mg PO HS #30 tab 07/16/18 [Rx] Brimonidine Tartrate/Timolol [Combigan 0.2%-0.5% Eye Drops] 1 drop LEFT EYE BID 08/23/18 [History] Carvedilol 25 mg PO BID 08/23/18 [History] Omeprazole 40 mg PO HS 08/23/18 [History] Methocarbamol [Robaxin-750] 750 mg PO QID PRN 06/18/19 [History] Physio [place] 720mg 1 tab PO BID 06/18/19 [History] Ubidecarenone [Co Q-10] 200 mg PO DAILY 06/18/19 [History] Aspirin 81 mg PO DAILY chew 06/26/19 [Rx] Cefuroxime [Ceftin] 250 mg PO BID #12 tablet 06/26/19 [Rx] Furosemide [Lasix] 40 mg PO DAILY tab 06/26/19 [Rx] Pramipexole [Mirapex] 0.5 mg PO TID tab 06/26/19 [Rx] amLODIPine [Norvasc] 5 mg PO BID tab 06/26/19 [Rx] Follow up Appointment(s)/Referral(s): Louis Lawson MD [Primary Care Provider] - 1 Week (at [facility]) Patient Instructions/Handouts: Chest Pain (DC), Left Heart Catheterization (DC) Discharge Disposition: TRANSFER TO SNF/ECF
--- NOTE | 2019-06-26 12:17 | PN ---
PROGRESS NOTE DATE OF SERVICE: June 26, 2019 This is an 83-year-old male with a diagnosis of mental status changes. He was thought to have contrast induced encephalopathy. The patient was thought to have possible infection. Spinal fluid came back negative. Antibiotics were discontinued. All this started after a cardiac catheterization. He did have a stenting of the right coronary artery, status post catheterization. He does have a history of previous CVA back in 2004 with slight left facial droop, multiple TIAs, hypertension, hyperlipidemia, sleep apnea syndrome, Parkinson disease, prostate cancer, status post prostatectomy, carotid stenosis, and a previous history of lower GI bleed. The patient possibly could be discharged home today. He is feeling generally well. He tells us that he is likely not going home, but rather going to one of the rehab facilities. He denies any chest pain or chest discomfort. He states that he is not having any additional neurologic complaints. No nausea, vomiting, diarrhea. No genitourinary complaints. No cough or phlegm production. PHYSICAL EXAMINATION: VITAL SIGNS: Current vital signs are reviewed. Temperature is 98.4, heart rate 62, respiratory rate is 16, blood pressure 151/80, mean 103, room air saturation 94% to 95%. GENERAL: He appears in no acute distress. HEENT: Examination is grossly unremarkable. Mucous membranes are moist. NECK: Supple. Full range of motion. No adenopathy. CARDIOVASCULAR: Examination reveals regular rhythm and rate. S1, S2 normal. No S3 or S4. No murmur. Heart rate in the mid 60s. LUNGS: Reveal clear breath sounds. No wheezes or rhonchi. Breath sounds equal bilaterally. ABDOMEN: Soft. Bowel sounds are heard. EXTREMITIES: Are intact. No cyanosis, clubbing, or edema. SKIN: Without rash. NEUROLOGIC: Examination is brief but essentially nonfocal. LABS: Labs are reviewed. Nothing new from today. No new x-rays to review. ASSESSMENT: 1. Mental status changes, which have improved, likely secondary to contrast induced encephalopathy. 2. No evidence of [employer] infection. 3. Coronary artery disease, status post stenting of the right coronary artery. 4. Previous history of CVA in 2004 with slight left facial droop. 5. History of hypertension. 6. History of hyperlipidemia. 7. Sleep apnea syndrome. 8. Parkinson disease. 9. History of prostate cancer, status post surgical resection followed by chemo/radiation therapy. 10.Carotid stenosis. 11.Lifelong nontobacco user. 12.Previous history of lower gastrointestinal bleed. PLAN: The patient will be discharged eventually to rehab facility. That may take place today or tomorrow. Not sure about that. Clinically he is doing well. Mental status is greatly improved. We will continue to follow. Prognosis is guarded. MMRAADL / IJN: [id number] /
== END 2019-06-26 13:32 | DRG 286 ==
LOC: EC 14:51 → 1SOBS 17:58 → OBSVTOIN 06-19 15:24 → 3SCARD 06-19 17:32 → 2SICU 06-20 13:17 → 4SSUR 06-25 16:53
PROVIDERS: ADMIT Family Medicine; ATTEND Family Medicine
PROC: B2111ZZ Fluoroscopy of Multiple Coronary Arteries using Low Osmolar Contrast (ICD-10-PCS; 2019-06-20)
PROC: 4A023N7 Measurement of Cardiac Sampling and Pressure, Left Heart, Percutaneous Approach (ICD-10-PCS; principal; 2019-06-20 11:00)
PROC: 00JU3ZZ Inspection of Spinal Canal, Percutaneous Approach (ICD-10-PCS; 2019-06-21)
PROC: 009U3ZX Drainage of Spinal Canal, Percutaneous Approach, Diagnostic (ICD-10-PCS; 2019-06-23)
DX: R07.9 Chest pain, unspecified (principal); G92 Toxic encephalopathy; E87.1 Hypo-osmolality and hyponatremia; J98.11 Atelectasis; N39.0 Urinary tract infection, site not specified; R47.01 Aphasia; I25.10 Atherosclerotic heart disease of native coronary artery without angina pectoris; G20 Parkinson's disease; I27.20 Pulmonary hypertension, unspecified; R31.9 Hematuria, unspecified; G62.9 Polyneuropathy, unspecified; I08.2 Rheumatic disorders of both aortic and tricuspid valves; I65.23 Occlusion and stenosis of bilateral carotid arteries; I73.9 Peripheral vascular disease, unspecified; I11.9 Hypertensive heart disease without heart failure; B96.20 Unspecified Escherichia coli [E. coli] as the cause of diseases classified elsewhere; E78.5 Hyperlipidemia, unspecified; G25.81 Restless legs syndrome; G43.909 Migraine, unspecified, not intractable, without status migrainosus; G47.33 Obstructive sleep apnea (adult) (pediatric); H40.9 Unspecified glaucoma; K21.9 Gastro-esophageal reflux disease without esophagitis; M47.814 Spondylosis without myelopathy or radiculopathy, thoracic region; M47.816 Spondylosis without myelopathy or radiculopathy, lumbar region; R29.810 Facial weakness; M19.90 Unspecified osteoarthritis, unspecified site; T50.8X5A Adverse effect of diagnostic agents, initial encounter; Z79.02 Long term (current) use of antithrombotics/antiplatelets; Z79.82 Long term (current) use of aspirin; Z79.899 Other long term (current) drug therapy; Z88.5 Allergy status to narcotic agent; Z88.8 Allergy status to other drugs, medicaments and biological substances; Z85.46 Personal history of malignant neoplasm of prostate; Z86.73 Personal history of transient ischemic attack (TIA), and cerebral infarction without residual deficits; Z90.79 Acquired absence of other genital organ(s); Z92.21 Personal history of antineoplastic chemotherapy; Z92.3 Personal history of irradiation; Z95.5 Presence of coronary angioplasty implant and graft; Z96.653 Presence of artificial knee joint, bilateral; Z87.440 Personal history of urinary (tract) infections; Z98.42 Cataract extraction status, left eye; Z98.41 Cataract extraction status, right eye; Z96.1 Presence of intraocular lens; Z82.0 Family history of epilepsy and other diseases of the nervous system; Z82.3 Family history of stroke; Z82.49 Family history of ischemic heart disease and other diseases of the circulatory system; Z83.3 Family history of diabetes mellitus; Z80.0 Family history of malignant neoplasm of digestive organs; Z80.8 Family history of malignant neoplasm of other organs or systems; Y92.239 Unspecified place in hospital as the place of occurrence of the external cause
CPT/HCPCS: 36415; 36600; 70450; 70496; 70498; 70551; 71045; 71046; 76770; 80048; 80053; 80061; 80202; 81001; 82805; 82945; 83036; 83605; 83735; 84100; 84132; 84157; 84443; 84484; 85025; 85027; 85049; 85610; 85730; 86140; 86694; 86695; 86696; 86738; 87040; 87070; 87077; 87081; 87086; 87186; 87205; 87430; 87449; 87502; 87529; 89050; 93005; 93306; 93458; 94640; 95816; 96365; 96375; 96376; 99291

== ENCOUNTER → 2020-03-12 | Outpatient (CLI) | payer MEDICARE ==
--- NOTE | 2020-03-12 11:33 | XR ---
EXAMINATION TYPE: XR chest 2V DATE OF EXAM: 03/12/2020 COMPARISON: 06/21/2019 TECHNIQUE: PA and lateral views submitted. HISTORY: Shortness of breath FINDINGS: Subsegmental changes involving the lungs. Ectasia the aorta with atherosclerotic change. Biapical ple ural thickening. Diffuse osteopenia with arthropathy of the shoulders. No overt failure. Hypertrophic and degenerative change of the spine. IMPRESSION: 1. Basilar atelectasis or infiltrate. Correlate clinically.
[2020-03-12 12:33] LABS: Basophils % (A) 0 %; Eosinophils # (A) 0.1 k/uL (0-0.7); Eosinophils % (A) 1 %; HCT 37.9 % (39.0-53.0); HGB 12.1 gm/dL (13.0-17.5); Lymphocytes # (A) 0.7 k/uL (1.0-4.8); Lymphocytes % (A) 11 %; MCH 29.5 pg (25.0-35.0); MCHC 31.9 g/dL (31.0-37.0); MCV 92.6 fL (80.0-100.0); Mean Platelet Volume 7.1; Monocytes # (A) 0.5 k/uL (0-1.0); Monocytes % (A) 7 %; Neutrophils # (A) 5.6 k/uL (1.3-7.7); Neutrophils % (A) 81 %; Platelet Count 199 k/uL (150-450); RBC 4.09 m/uL (4.30-5.90); RDW 13.6 % (11.5-15.5)
[2020-03-12 12:48] LABS: Prothrombin Time 10.2 sec (9.0-12.0)
[2020-03-12 12:50] LABS: ALT 31 U/L (4-49); AST 32 U/L (17-59); African American GFR (CKD) >90 (>60 ml/min/1.73 sqM); Albumin 3.7 g/dL (3.5-5.0); Alkaline Phosphatase 79 U/L (38-126); Anion Gap 6 mmol/L; Blood Urea Nitrogen 33 mg/dL (9-20); Calcium 8.9 mg/dL (8.4-10.2); Carbon Dioxide 23 mmol/L (22-30); Chloride 105 mmol/L (98-107); Glucose 121 mg/dL (74-99); Non-African American GFR(CKD) 89 (>60 ml/min/1.73 sqM); Potassium 4.7 mmol/L (3.5-5.1); Sodium 134 mmol/L (137-145); Total Bilirubin 0.3 mg/dL (0.2-1.3); Total Protein 6.3 g/dL (6.3-8.2)
[2020-03-12 12:51] LABS: Appearance,Urine Clear (Clear); Bilirubin,Urine Negative (Negative); Blood,Urine Negative (Negative); Color,Urine Yellow; Glucose,Urine (UA) Negative (Negative); Ketones,Urine Negative (Negative); Leukocyte Esterase,Urine Negative (Negative); Nitrite,Urine Negative (Negative); Protein,Urine Trace (Negative); Urobilinogen,Urine <2.0 mg/dL (<2.0)
== END | disposition home or self-care (01) ==
LOC: RADXRMAIN 11:01
PROVIDERS: ATTEND Internal Medicine Geriatric Medicine
DX: J44.9 Chronic obstructive pulmonary disease, unspecified (principal); Z01.818 Encounter for other preprocedural examination; Z01.812 Encounter for preprocedural laboratory examination; Z79.01 Long term (current) use of anticoagulants
CPT/HCPCS: 71046; 80053; 81003; 85025; 85610; 85730

== ENCOUNTER 2020-04-16 11:43 | Inpatient (IN) | payer MEDICARE ==
--- NOTE | 2020-04-16 12:38 | ED ---
SOB HPI - General Source: patient, family, EMS, RN notes reviewed Mode of arrival: EMS Limitations: no limitations - History of Present Illness MD Complaint: shortness of breath <Stephan Torrez - Last Filed: 04/16/20 14:51> <David Lopez - Last Filed: 04/16/20 16:41> - General Chief Complaint: Shortness of Breath Stated Complaint: SOB Time Seen by Provider: 04/16/20 11:49 - History of Present Illness Initial Comments: This 84-year-old male was brought in by EMS with complaints of back pain and shortness of breath. Patient does have a history of left hip surgery on the eighth of this month. Shortness of breath apparently is been going on for couple days. He also states she's had increased pedal edema. No fevers chills nausea vomiting sweats or other symptoms reported at this time. (Stephan Torrez) - Related Data Home Medications Medication Instructions Recorded Confirmed cloNIDine HCL [Catapres] 0.1 mg PO W/SUPPER 05/21/14 04/16/20 Montelukast [Singulair] 10 mg PO HS 09/19/15 04/16/20 Cholecalciferol [Vitamin D3 (25 5,000 unit PO W/SUPPER 03/05/17 04/16/20 Mcg = 1000 Iu)] hydroCHLOROthiazide 25 mg PO DAILY 02/07/18 04/16/20 levETIRAcetam [Keppra] 250 mg PO DAILY 02/07/18 04/16/20 Ferrous Sulfate [Iron (65 MG 325 mg PO DAILY 07/14/18 04/16/20 Elemental)] Losartan Potassium 50 mg PO DAILY 07/14/18 04/16/20 Brimonidine Tartrate/Timolol 1 drop LEFT EYE BID 08/23/18 04/16/20 [Combigan 0.2%-0.5% Eye Drops] carvediloL [Carvedilol] 25 mg PO BID-W/MEALS 08/23/18 04/16/20 Methocarbamol [Robaxin-750] 750 mg PO TID PRN 06/18/19 04/16/20 Baclofen 10 mg PO TID PRN 04/16/20 04/16/20 Buta/APAP/Caf/Cod 92-119-72-30 1 - 2 cap PO Q4H PRN MDD 4 caps 04/16/20 04/16/20 [Fioricet w/Cod 09-566-75-30MG] Clopidogrel [Plavix] 75 mg PO DAILY 04/16/20 04/16/20 Cyanocobalamin (Vitamin B-12) 2,500 mcg PO DAILY 04/16/20 04/16/20 [Vitamin B-12] Ezetimibe [Zetia] 10 mg PO DAILY 04/16/20 04/16/20 HYDROcodone/APAP 10-325MG [[place] 1 tab PO Q5H PRN 04/16/20 04/16/20 10-325] Latanoprost/Pf [Latanoprost 0.005% 1 drop BOTH EYES HS 04/16/20 04/16/20 Eye Drop] Pramipexole [Mirapex] 1 mg PO BID@1800,2100 04/16/20 04/16/20 Rosuvastatin Calcium 20 mg PO HS 04/16/20 04/16/20 Sennosides [Senna] 8.6 mg PO BID-W/MEALS 04/16/20 04/16/20 Tamsulosin [Flomax] 0.4 mg PO DAILY 04/16/20 04/16/20 amLODIPine [Norvasc] 2.5 mg PO BID-W/MEALS 04/16/20 04/16/20 levETIRAcetam 500 mg PO W/SUPPER 04/16/20 04/16/20 Previous Rx's Medication Instructions Recorded Aspirin 81 mg PO DAILY chew 06/26/19 Allergies Allergy/AdvReac Type Severity Reaction Status Date / Time metoclopramide [From Reglan] AdvReac SHAKES Verified 04/16/20 13:53 oxycodone HCl AdvReac Nausea & Verified 04/16/20 13:53 [From OxyContin] Vomiting Review of Systems ROS Other: All systems not noted in ROS Statement are negative. <Stephan Torrez - Last Filed: 04/16/20 14:51> ROS Other: All systems not noted in ROS Statement are negative. <David Lopez - Last Filed: 04/16/20 16:41> ROS Statement: Those systems with pertinent positive or pertinent negative responses have been documented in the HPI. 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, multiple TIAs, parkinson's disease, neuralgia, neuropathy bilateral hands, legs and feet, thoracic spondylosis, prostrate cancer with surgery/chemo and radiation, UTIs, kidney stones, L eye glaucoma, PVD/bilateral lower extremity edema, caratid stenosis, aemia, bronchitis, lower GI bleed, ANDREA with CPap History of Any Multi-Drug Resistant Organisms: None Reported Past Surgical History: Adenoidectomy, Back Surgery, Heart Catheterization With Stent, Hernia Repair, Joint Replacement, Orthopedic Surgery, Prostate Surgery, Tonsillectomy Additional Past Surgical History / Comment(s): PCI with stent in 2012, prostate biopsies, laser vaporization of prostrate, bilateral inquinal hernia repairs, EGD/colonoscopy, supraorbital percutaneous nerve stimulator trial, epidural inj ections, low back surgery, R foot hammer toe surgery, bilateral total knee replacements, bilateral cataract removals/lens implants, hemorrhoidectomy, R side of head vein biopsy Past Anesthesia/Blood Transfusion Reactions: No Reported Reaction Additional Past Anesthesia/Blood Transfusion Reaction / Comment(s): Pt has received blood in past without reaction. Date of Last Stent Placement:: 2012 Past Psychological History: No Psychological Hx Reported Past Alcohol Use History: None Reported Past Drug Use History: None Reported - Past Family History Brother(s) Additional Family Medical History / Comment(s): Patient has 3 brothers with no major medical problems. Sister(s) Additional Family Medical History / Comment(s): Patient has 3 sisters that are all alive. 2 have high blood pressure. One has diabetes and stroke and is 81 years old. And all have history of tremors. Son(s) Additional Family Medical History / Comment(s): Patient has 3 sons and one daughter with no major medical problems. Father Family Medical History: Myocardial Infarction ([place]) Additional Family Medical History / Comment(s): Father at age 73 with history of Parkinson's disease, bowel cancer, bone cancer. Mother Family Medical History: Myocardial Infarction ([place]) Additional Family Medical History / Comment(s): Mother at age 85 with history of hypertension and dementia. <ShanStephan - Last Filed: 04/16/20 14:51> General Exam Limitations: no limitations General appearance: alert, in no apparent distress Head exam: Present: atraumatic, normocephalic, normal inspection Eye exam: Present: normal appearance, PERRL, EOMI. Absent: scleral icterus, conjunctival injection, periorbital swelling ENT exam: Present: normal exam, mucous membranes moist Neck exam: Present: normal inspection. Absent: tenderness, meningismus, lymphadenopathy Respiratory exam: Present: normal lung sounds bilaterally. Absent: respiratory distress, wheezes, rales, rhonchi, stridor Cardiovascular Exam: Present: regular rate, normal rhythm, normal heart sounds. Absent: systolic murmur, diastolic murmur, rubs, gallop, clicks GI/Abdominal exam: Present: soft, normal bowel sounds. Absent: distended, tenderness, guarding, rebound, rigid Extremities exam: Present: full ROM, normal capillary refill, pedal edema. Absent: tenderness, joint swelling, calf tenderness Back exam: Present: normal inspection Neurological exam: Present: alert, oriented X3, CN II-XII intact Psychiatric exam: Present: normal affect, normal mood Skin exam: Present: warm, dry, intact, normal color. Absent: rash <Stephan Torrez Last Filed: 04/16/20 14:51> - General Exam Comments Initial Comments: This is a well-developed well-nourished awake alert oriented 3 male (Stephan Torrez) Course <Stephan Torrez - Last Filed: 04/16/20 14:51> Vital Signs 04/16/20 04/16/20 11:46 16:29 Temperature 98.0 F Pulse Rate 81 98 Respiratory 18 18 Rate Blood Pressure 147/97 147/94 O2 Sat by Pulse 96 97 Oximetry - Reevaluation(s) Reevaluation #1: 04/16/20 14:51 D-dimer and ultrasound are pending the case is endorsed to Dr. Lopez and her shift change. (Stephan Torrez) Medical Decision Making - Lab Data Result diagrams: 04/16/20 12:25 04/16/20 12:25 - EKG Data -: EKG Interpreted by Me EKG shows normal: sinus rhythm (Sinus rhythm of 89. Interval 184 QRS duration 90 QT since QTC 374/455 minimal voltage criteria for LVH) <Stephan Torrez - Last Filed: 04/16/20 14:51> - Lab Data Result diagrams: 04/16/20 12:25 04/16/20 12:25 <David Lopez - Last Filed: 04/16/20 16:41> - Medical Decision Making Patient's care was signed out to me by previous shift physician Dr. Torrez. Briefly, patient is 84-year-old male he had recent hip surgery. He presents today for shortness of breath. There is strong possibility of pulmonary embolus. Laboratory evaluation obtained. CBC is unremarkable. Coag panel is unremarkable. The d-dimer is significantly elevated. Metabolic panel is within acceptable limits. Troponin level is negative. Chest x-ray is nonacute. Venous Doppler study shows DVT to the right lower extremity. CT angiogram of the chest shows bilateral pulmonary emboli. Patient reevaluated at bedside he is in stable medical condition. He denies any significant chest pain while at rest. He is not hypoxic and not dyspneic. Patient started on heparin. He is stable for telemetry floor. Pulmonology will be consulted. (David Lopez) - Lab Data Lab Results 04/16/20 04/16/20 04/16/20 Range/Units 12:25 12:25 12:25 WBC 5.8 (3.8-10.6) k/uL RBC 3.37 L (4.30-5.90) m/uL Hgb 10.1 L (13.0-17.5) gm/dL Hct 30.4 L (39.0-53.0) % MCV 90.2 (80.0-100.0) fL MCH 30.0 (25.0-35.0) pg MCHC 33.2 (31.0-37.0) g/dL RDW 14.9 (11.5-15.5) % Plt Count 389 (150-450) k/uL Neutrophils % 76 % Lymphocytes % 11 % Monocytes % 7 % Eosinophils % 4 % Basophils % 1 % Neutrophils # 4.4 (1.3-7.7) k/uL Lymphocytes # 0.6 L (1.0-4.8) k/uL Monocytes # 0.4 (0-1.0) k/uL Eosinophils # 0.2 (0-0.7) k/uL Basophils # 0.1 (0-0.2) k/uL PT 10.7 (9.0-12.0) sec INR 1.0 (<1.2) APTT 23.9 (22.0-30.0) sec D-Dimer (<0.60) mg/L FEU Sodium 131 L (137-145) mmol/L Potassium 4.1 (3.5-5.1) mmol/L Chloride 100 (98-107) mmol/L Carbon Dioxide 22 (22-30) mmol/L Anion Gap 9 mmol/L BUN 27 H (9-20) mg/dL Creatinine 0.65 L (0.66-1.25) mg/dL Est GFR (CKD-EPI)AfAm >90 (>60 ml/min/1.73 sqM) Est GFR (CKD-EPI)NonAf >90 (>60 ml/min/1.73 sqM) Glucose 102 H (74-99) mg/dL Plasma Lactic Acid Rufino (0.7-2.0) mmol/L Calcium 9.2 (8.4-10.2) mg/dL Magnesium 1.9 (1.6-2.3) mg/dL Total Bilirubin 0.9 (0.2-1.3) mg/dL AST 26 (17-59) U/L ALT 15 (4-49) U/L Alkaline Phosphatase 102 (38-126) U/L Creatine Kinase 27 L (55-170) U/L Troponin I (0.000-0.034) ng/mL NT-Pro-B Natriuret Pep pg/mL Total Protein 6.3 (6.3-8.2) g/dL Albumin 3.6 (3.5-5.0) g/dL 04/16/20 04/16/20 04/16/20 Range/Units 12:25 12:25 12:25 WBC (3.8-10.6) k/uL RBC (4.30-5.90) m/uL Hgb (13.0-17.5) gm/dL Hct (39.0-53.0) % MCV (80.0-100.0) fL MCH (25.0-35.0) pg MCHC (31.0-37.0) g/dL RDW (11.5-15.5) % Plt Count (150-450) k/uL Neutrophils % % Lymphocytes % % Monocytes % % Eosinophils % % Basophils % % Neutrophils # (1.3-7.7) k/uL Lymphocytes # (1.0-4.8) k/uL Monocytes # (0-1.0) k/uL Eosinophils # (0-0.7) k/uL Basophils # (0-0.2) k/uL PT (9.0-12.0) sec INR (<1.2) APTT (22.0-30.0) sec D-Dimer (<0.60) mg/L FEU Sodium (137-145) mmol/L Potassium (3.5-5.1) mmol/L Chloride (98-107) mmol/L Carbon Dioxide (22-30) mmol/L Anion Gap mmol/L BUN (9-20) mg/dL Creatinine (0.66-1.25) mg/dL Est GFR (CKD-EPI)AfAm (>60 ml/min/1.73 sqM) Est GFR (CKD-EPI)NonAf (>60 ml/min/1.73 sqM) Glucose (74-99) mg/dL Plasma Lactic Acid Rufino 0.9 (0.7-2.0) mmol/L Calcium (8.4-10.2) mg/dL Magnesium (1.6-2.3) mg/dL Total Bilirubin (0.2-1.3) mg/dL AST (17-59) U/L ALT (4-49) U/L Alkaline Phosphatase (38-126) U/L Creatine Kinase (55-170) U/L Troponin I <0.012 (0.000-0.034) ng/mL NT-Pro-B Natriuret Pep 521 pg/mL Total Protein (6.3-8.2) g/dL Albumin (3.5-5.0) g/dL 04/16/20 Range/Units 12:25 WBC (3.8-10.6) k/uL RBC (4.30-5.90) m/uL Hgb (13.0-17.5) gm/dL Hct (39.0-53.0) % MCV (80.0-100.0) fL MCH (25.0-35.0) pg MCHC (31.0-37.0) g/dL RDW (11.5-15.5) % Plt Count (150-450) k/uL Neutrophils % % Lymphocytes % % Monocytes % % Eosinophils % % Basophils % % Neutrophils # (1.3-7.7) k/uL Lymphocytes # (1.0-4.8) k/uL Monocytes # (0-1.0) k/uL Eosinophils # (0-0.7) k/uL Basophils # (0-0.2) k/uL PT (9.0-12.0) sec INR (<1.2) APTT (22.0-30.0) sec D-Dimer >35.20 H (<0.60) mg/L FEU Sodium (137-145) mmol/L Potassium (3.5-5.1) mmol/L Chloride (98-107) mmol/L Carbon Dioxide (22-30) mmol/L Anion Gap mmol/L BUN (9-20) mg/dL Creatinine (0.66-1.25) mg/dL Est GFR (CKD-EPI)AfAm (>60 ml/min/1.73 sqM) Est GFR (CKD-EPI)NonAf (>60 ml/min/1.73 sqM) Glucose (74-99) mg/dL Plasma Lactic Acid Rufino (0.7-2.0) mmol/L Calcium (8.4-10.2) mg/dL Magnesium (1.6-2.3) mg/dL Total Bilirubin (0.2-1.3) mg/dL AST (17-59) U/L ALT (4-49) U/L Alkaline Phosphatase (38-126) U/L Creatine Kinase (55-170) U/L Troponin I (0.000-0.034) ng/mL NT-Pro-B Natriuret Pep pg/mL Total Protein (6.3-8.2) g/dL Albumin (3.5-5.0) g/dL Disposition <Stephan Torrez - Last Filed: 04/16/20 14:51> Decision Time: 16:41 <David Lopez - Last Filed: 04/16/20 16:41> Clinical Impression: Pulmonary emboli Disposition: ADMITTED IP TO THIS HOSP Condition: Critical Referrals: Louis Lawson MD [Primary Care Provider] - 1-2 days
[2020-04-16 12:51] LABS: Basophils # (A) 0.1 k/uL (0-0.2); Basophils % (A) 1 %; Eosinophils # (A) 0.2 k/uL (0-0.7); Eosinophils % (A) 4 %; HCT 30.4 % (39.0-53.0); HGB 10.1 gm/dL (13.0-17.5); Lymphocytes # (A) 0.6 k/uL (1.0-4.8); Lymphocytes % (A) 11 %; MCHC 33.2 g/dL (31.0-37.0); MCV 90.2 fL (80.0-100.0); Mean Platelet Volume 6.5; Monocytes # (A) 0.4 k/uL (0-1.0); Monocytes % (A) 7 %; Neutrophils # (A) 4.4 k/uL (1.3-7.7); Neutrophils % (A) 76 %; Platelet Count 389 k/uL (150-450); RBC 3.37 m/uL (4.30-5.90); RDW 14.9 % (11.5-15.5); WBC 5.8 k/uL (3.8-10.6)
--- NOTE | 2020-04-16 12:57 | XR ---
EXAMINATION TYPE: XR chest 2V DATE OF EXAM: 04/16/2020 COMPARISON: 03/12/2020 HISTORY: Shortness of breath TECHNIQUE: Frontal and lateral views of the chest are obtained. FINDINGS: Scattered senescent parenchymal changes noted. Hyperinflation compatible with COPD. No evidence for infiltrate. No evidence for atelectasis. Heart size is stable. Mediastinal structures are stable and grossly unremarkable. No evidence for hilar prominence. Degenerative changes dorsal spine. IMPRESSION: 1. No evidence for acute pulmonary disease.
[2020-04-16 12:58] LABS: Partial Thromboplastin Time 23.9 sec (22.0-30.0); Prothrombin Time 10.7 sec (9.0-12.0)
[2020-04-16 13:01] LABS: ALT 15 U/L (4-49); AST 26 U/L (17-59); African American GFR (CKD) >90 (>60 ml/min/1.73 sqM); Albumin 3.6 g/dL (3.5-5.0); Alkaline Phosphatase 102 U/L (38-126); Anion Gap 9 mmol/L; Blood Urea Nitrogen 27 mg/dL (9-20); Calcium 9.2 mg/dL (8.4-10.2); Carbon Dioxide 22 mmol/L (22-30); Chloride 100 mmol/L (98-107); Creatine Kinase 27 U/L (55-170); Glucose 102 mg/dL (74-99); Magnesium 1.9 mg/dL (1.6-2.3); Non-African American GFR(CKD) >90 (>60 ml/min/1.73 sqM); Potassium 4.1 mmol/L (3.5-5.1); Sodium 131 mmol/L (137-145); Total Bilirubin 0.9 mg/dL (0.2-1.3); Total Protein 6.3 g/dL (6.3-8.2)
[2020-04-16] MEDS ORDERED: ONDANSETRON 4 MG/2 ML VIAL IVP STA (13:37)
[2020-04-16] MEDS ORDERED: MORPHINE SULFATE 4 MG/ML SYRINGE IVP STA (13:37)
[2020-04-16] MEDS ORDERED: SODIUM CHLORIDE 0.9% 500 ML 500 ML IV STA (14:01)
--- NOTE | 2020-04-16 15:18 | US ---
EXAMINATION TYPE: US venous doppler duplex LE DATE OF EXAM: 04/16/2020 3:05 PM COMPARISON: NONE CLINICAL HISTORY: Bilateral peripheral edema. SIDE PERFORMED: TECHNIQUE: The lower extremity deep venous system is examined utilizing real time linear array sonog kerry with graded compression, doppler sonography and color-flow sonography. VESSELS IMAGED: External Iliac Vein (EIV) Common Femoral Vein Deep Femoral Vein Greater Saphenous Vein * Femoral Vein Popliteal Vein Small Saphenous Vein * Proximal Calf Veins-not seen due to edema (* superficial vessels) Excessive pitting edema bilateral, worse on right. Technically difficult study. Right Leg: Positive for non-occluding thrombus in EIV, CFV, DFV Left Leg: Negative for DVT IMPRESSION: 1. Nonoccluding DVT right lower extremity as noted above.
[2020-04-16] MEDS ORDERED: HEPARIN SODIUM,PORCINE 5,000 UNIT/ML 1 ML VIAL IV PRN (15:34)
[2020-04-16] MEDS ORDERED: HEPARIN SODIUM,PORCINE 10,000 UNIT/ML 1 ML VIAL IV ONE (15:34)
[2020-04-16] MEDS: HEPARIN SOD,PORK IN 0.45% NACL 25,000 UNIT in 0.45% NACL 1 250ML.BAG IV SCH (15:50)
--- NOTE | 2020-04-16 16:09 | CT ---
EXAMINATION TYPE: CT angio chest DATE OF EXAM: 04/16/2020 COMPARISON: Chest x-ray 03/12/2020 HISTORY: Post OP Left hip. CT DLP: 578.7 mGycm Automated exposure control for dose reduction was used. CONTRAST: CTA scan of the thorax is performed with IV Contrast, patient injected with 100 mL of Isovue 370, pul monary embolism protocol. MIP images are created and reviewed. 3D reconstructed images are created on an independent workstation and reviewed. FINDINGS: LUNGS: The lungs are remarkable for probable dependent bilateral atelectatic changes, some areas of g roundglass opacity also scattered within the perihilar region, left upper lobe There is no pleural ef fusion or pneumothorax seen. The tracheobronchial tree is patent. AORTA: No additional significant abnormality is seen. MEDIASTINUM: There is satisfactory enhancement of the pulmonary artery and its branches, there is lidia ling defect within the segmental branches of the left lower lobe, left upper lobe and right middle lo be There are no greater than 1 cm hilar or mediastinal lymph nodes. No pericardial effusion is seen . There are coronary artery calcifications. OTHER: Renal collecting systems are prominent bilaterally, possible underlying hydronephrosis is inc ompletely evaluated. There is hiatal hernia present. IMPRESSION: BILATERAL PULMONARY EMBOLI, report relayed to the emergency room physician telephonically at the time of performance of the exam
[2020-04-16] MEDS ORDERED: NALOXONE 0.4 MG/ML 1 ML VIAL IV PRN (16:41)
[2020-04-16] MEDS ORDERED: ONDANSETRON 4 MG/2 ML VIAL IVP PRN (16:41)
[2020-04-16] MEDS: MORPHINE SULFATE 4 MG/ML SYRINGE IV PRN ×2 (16:51→20:35)
[2020-04-16] MEDS: SODIUM CHLORIDE 0.9% 1,000 ML IV SCH (18:53)
[2020-04-16] MEDS ORDERED: HYDROcodone/APAP 10-325MG 1 EACH TAB PO PRN (22:50)
[2020-04-16] MEDS ORDERED: BUTA/APAP/CAF/COD 50-325-40-30 CAP PO PRN (22:50)
[2020-04-16] MEDS ORDERED: BACLOFEN 10 MG TAB PO PRN (22:50)
--- NOTE | 2020-04-16 22:50 | P.HPIM ---
History of Present Illness H&P Date: 04/16/20 Chief Complaint: Pulmonary embolism, DVT, history of Parkinson disease, carmenza edge, severe dys 84-year-old male one of my office patient with past medical history of coronary artery disease, Parkinson disease, severe recurrent headache, severe PAD, severe arthritis, severe abnormal mobility with abnormal balancing gait is also noted to have history of obstructive sleep apnea on CPAP who had recent total hip arthroplasty by Dr. Horvath at [facility] and end up being discharged home despite the slow progression on physical therapy but patient and his felt daily able to manage him going home did not require any rehab at the time. Patient has been seen by visiting nurse his called the office this morning with concern that he is having severe increased edema with worsening shortness of breath not been able to ambulate or walk become progressively worse with severe dyspnea with minimum exertion. Ended up coming to the emergency department via EMS where was seen and evaluated surprisingly his d-dimer was elevated Doppler of the right leg showed large deep venous thrombosis. CTA showed bilateral pulmonary embolism. Patient was slightly dysp neic require O2 at 2-3 L to keep his pulse ox above 90 percentile. Was started on heparin drip will continue updraft management patient will be admitted for the above problem. Review of Systems CONSTITUTIONAL: Well-developed no acute respiratory distress. EYES: No icterus sclerae, no conjunctivitis. EARS, NOSE, MOUTH, THROAT, and FACE: No sore throat, lymphadenopathy, carotid bruits or deformity. RESPIRATORY: Significant shortness of breath cough wheezes. CARDIOVASCULAR: Positive PND or to be palpitation with no sign of angina. GASTROINTESTINAL: No Abd pain, Nausea or vomiting, no Diarrhea or constipation, No GI Bleed, no distention or masses. GENITOURINARY: Urinary retention with worsening incontinence with decrease in output lately. INTEGUMENT/BREAST: Negative for any muscular injury with mild osteoarthritis.. HEMATOLOGIC/LYMPHATIC: Mild anemia with no sign of bleeding. MUSCULOSKELTAL: Right total hip arthroplasty. NEURLOGICAL: Parkinson with worsening mobility worsening symptoms. Slight decline in memory. BEHAVIORAL/PSYCH: Negative. ENDOCRINE: Negative. 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, multiple TIAs, parkinson's disease, neuralgia, neuropathy bilateral hands, legs and feet, thoracic spondylosis, prostrate cancer with surgery/chemo and radiation, UTIs, kidney stones, L eye glaucoma, PVD/bilateral lower extremity edema, caratid stenosis, aemia, bronchitis, lower GI bleed, ANDREA with CPap History of Any Multi-Drug Resistant Organisms: None Reported Past Surgical History: Adenoidectomy, Back Surgery, Heart Catheterization With Stent, Hernia Repair, Joint Replacement, Orthopedic Surgery, Prostate Surgery, Tonsillectomy Additional Past Surgical History / Comment(s): PCI with stent in 2012, prostate biopsies, laser vaporization of prostrate, bilateral inquinal hernia repairs, EGD/colonoscopy, supraorbital percutaneous nerve stimulator trial, epidural injections, low back surgery, R foot hammer toe surgery, bilateral total knee replacements, bilateral cataract removals/lens implants, hemorrhoidectomy, R side of head vein biopsy Past Anesthesia/Blood Transfusion Reactions: No Reported Reaction Additional Past Anesthesia/Blood Transfusion Reaction / Comment(s): Pt has received blood in past without reaction. Date of Last Stent Placement:: 2012 Past Psychological History: No Psychological Hx Reported Past Alcohol Use History: None Reported Past Drug Use History: None Reported - Past Family History Brother(s) Additional Family Medical History / Comment(s): Patient has 3 brothers with no major medical problems. Sister(s) Additional Family Medical History / Comment(s): Patient has 3 sisters that are all alive. 2 have high blood pressure. One has diabetes and stroke and is 81 years old. And all have history of tremors. Son(s) Additional Family Medical History / Comment(s): Patient has 3 sons and one daughter with no major medical problems. Father Family Medical History: Myocardial Infarction (CO) Additional Family Medical History / Comment(s): Father at age 73 with history of Parkinson's disease, bowel cancer, bone cancer. Mother Family Medical History: Myocardial Infarction ([place]) Additional Family Medical History / Comment(s): Mother at age 85 with h istory of hypertension and dementia. Medications and Allergies Home Medications Medication Instructions Recorded Confirmed Type cloNIDine HCL [Catapres] 0.1 mg PO W/SUPPER 05/21/14 04/16/20 History Montelukast [Singulair] 10 mg PO HS 09/19/15 04/16/20 History Cholecalciferol [Vitamin D3 (25 5,000 unit PO W/SUPPER 03/05/17 04/16/20 History Mcg = 1000 Iu)] hydroCHLOROthiazide 25 mg PO DAILY 02/07/18 04/16/20 History levETIRAcetam [Keppra] 250 mg PO DAILY 02/07/18 04/16/20 History Ferrous Sulfate [Iron (65 MG 325 mg PO DAILY 07/14/18 04/16/20 History Elemental)] Losartan Potassium 50 mg PO DAILY 07/14/18 04/16/20 History Brimonidine Tartrate/Timolol 1 drop LEFT EYE BID 08/23/18 04/16/20 History [Combigan 0.2%-0.5% Eye Drops] carvediloL [Carvedilol] 25 mg PO BID-W/MEALS 08/23/18 04/16/20 History Methocarbamol [Robaxin-750] 750 mg PO TID PRN 06/18/19 04/16/20 History Aspirin 81 mg PO DAILY chew 06/26/19 04/16/20 Rx Baclofen 10 mg PO TID PRN 04/16/20 04/16/20 History Buta/APAP/Caf/Cod 07-982-31-30 1 - 2 cap PO Q4H PRN MDD 4 caps 04/16/20 04/16/20 History [Fioricet w/Cod 30-367-63-30MG] Clopidogrel [Plavix] 75 mg PO DAILY 04/16/20 04/16/20 History Cyanocobalamin (Vitamin B-12) 2,500 mcg PO DAILY 04/16/20 04/16/20 History [Vitamin B-12] Ezetimibe [Zetia] 10 mg PO DAILY 04/16/20 04/16/20 History HYDROcodone/APAP 10-325MG [[place] 1 tab PO Q5H PRN 04/16/20 04/16/20 History 10-325] Latanoprost/Pf [Latanoprost 0.005% 1 drop BOTH EYES HS 04/16/20 04/16/20 History Eye Drop] Pramipexole [Mirapex] 1 mg PO BID@1800,2100 04/16/20 04/16/20 History Rosuvastatin Calcium 20 mg PO HS 04/16/20 04/16/20 History Sennosides [Senna] 8.6 mg PO BID-W/MEALS 04/16/20 04/16/20 History Tamsulosin [Flomax] 0.4 mg PO DAILY 04/16/20 04/16/20 History amLODIPine [Norvasc] 2.5 mg PO BID-W/MEALS 04/16/20 04/16/20 History levETIRAcetam 500 mg PO W/SUPPER 04/16/20 04/16/20 History Allergies Allergy/AdvReac Type Severity Reaction Status Date / Time metoclopramide [From Reglan] AdvReac SHAKES Verified 04/16/20 13:53 oxycodone HCl AdvReac Nausea & Verified 04/16/20 13:53 [From OxyContin] Vomiting Physical Exam Vitals: Vital Signs Temp Pulse Resp BP Pulse Ox 04/16/20 16:29 98 18 147/94 97 04/16/20 11:46 98.0 F 81 18 147/97 96 Intake and Output 04/16/20 04/16/20 04/16/20 06:59 14:59 22:59 Other: Weight 97.522 kg General Appearance: Alert, cooperative, mild distress appears stated age. Neck HEENT: Supple, no lymphadenopathy, no thyroid enlargement, no carotid bruits. Lungs: Decreased breath some bilateral rhonchi positive mild expiratory wheezes. Chest Wall: Decrease expansion with deep inspiration no tenderness and no deformity was found on exam, no costochondral pain or discomfort. Heart: Regular rate and rhythm, S1, S2 normal, positive PVCs with ejection heart murmur. Back: Symmetric, no curvature, ROM normal, no CVA tenderness. Abdomen: Soft, non-tender, bowel sounds active all four quadrants, no masses, no organomegaly. Extremities: Significant edema in both side worse in the right than the left side 2+ significant pain and discomfort in the right calvarium area all the way to the thigh incision from hip surgery looks fine with no sign of infection at the time. Pulses: 2+ and symmetric. Skin: Skin color, texture, tugor normal, no rashes or lesions. Neurologic: Alert oriented x3 cranial nerves II through XII intact, generalized weakness with no focal deficit severe abnormal balance and gait. Results CBC & Chem 7: 04/16/20 12:25 04/16/20 12:25 Labs: Abnormal Lab Results - Last 24 Hours (Table) 04/16/20 04/16/20 04/16/20 Range/Units 12:25 12:25 12:25 RBC 3.37 L (4.30-5.90) m/uL Hgb 10.1 L (13.0-17.5) gm/dL Hct 30.4 L (39.0-53.0) % Lymphocytes # 0.6 L (1.0-4.8) k/uL D-Dimer >35.20 H (<0.60) mg/L FEU Sodium 131 L (137-145) mmol/L BUN 27 H (9-20) mg/dL Creatinine 0.65 L (0.66-1.25) mg/dL Glucose 102 H (74-99) mg/dL Creatine Kinase 27 L (55-170) U/L Thrombosis Risk Factor Assmnt - DVT/VTE Prophylaxis DVT/VTE Prophylaxis: Pharmacologic Prophylaxis ordered, Mechanical Prophylaxis ordered Assessment and Plan Assessment: 1 acute respiratory failure with severe dyspnea and shortness of breath: Second kalpesh to pulmonary embolism, will admit patient to the hospital continue heparin drip, echocardiogram will be done consult pulmonary. 2 bilateral pulmonary embolism: Originated from deep venous thrombosis post orthopedic surgery, patient was started on anticoagulation Will follow and echocardiogram result to see any strain on the right side of the heart consult pulmonary. 3 large deep venous thrombosis of the right leg: Patient be on anticoagulation on the time specially with a pulmonary embolism that require to be on anticoagulation for at least the next 6 months. 4 recent history of total hip arthroplasty: His recovery has been slow patient has not been able to participate much physical therapy and mobility patient will require to probably go to rehab at this point has been very hard to manage his physical therapy and mobility at home. 5 debility with worsening symptoms since his total hip arthroplasty we'll advance physical therapy in the next 48 hours and consider rehab. 6 atherosclerotic heart disease: Post angioplasty and stent placement, patient has been seen cardiology regular basis no anginal chest pain at this point his troponin was negative. 7 history of CVA: Patient has been on secondary prevention still on antiplatelet agent and doing well so far. 8 Hypertension: Patient is to be continue on amlodipine 2.5 mg twice a day along with the clonidine 0.1 mg with supper time and hydrochlorothiazide along with losartan 50 mg a day and carvedilol any 5 g twice a day. 9 hyperlipidemia: Remain on Zetia 10 mg a day. And Crestor 20 mg daily. 10 severe BPH: Watch for any urinary retention remain on Flomax 0.4 mg a day. 11 history of seizure: The patient will be continue on Keppra 250 mg daily. 12 severe restless leg syndrome: Continue Mirapex 1 mg twice a day. 13 chronic pain management: Patient has been on [place] 10 mg every 4 hours as needed. 14 GI prophylaxis: Continue patient on pantoprazole 40 mg a day. 15 DVT prophylaxis and treatment patient is an anticoagulation. CODE STATUS: Full code. Admit patient to inpatient service for more than 2 night stay.
[2020-04-17] MEDS: MORPHINE SULFATE 4 MG/ML SYRINGE IV PRN ×6 (00:52→20:51)
[2020-04-17] MEDS: carvediloL 12.5 MG TAB PO SCH ×2 (06:31→16:48)
[2020-04-17] MEDS: amLODIPine 5 MG TAB PO SCH ×2 (06:31→16:48)
[2020-04-17] MEDS: PANTOPRAZOLE 40 MG TABLET PO SCH (06:31)
[2020-04-17] MEDS: HEPARIN SOD,PORK IN 0.45% NACL 25,000 UNIT in 0.45% NACL 1 250ML.BAG IV SCH (06:32)
[2020-04-17] MEDS: SENNOSIDES 8.6 MG TAB PO SCH ×2 (06:32→17:20)
[2020-04-17 06:51] LABS: Basophils # (A) 0.1 k/uL (0-0.2); Basophils % (A) 1 %; Eosinophils # (A) 0.2 k/uL (0-0.7); Eosinophils % (A) 4 %; HGB 9.7 gm/dL (13.0-17.5); Hypochromasia Slight; Lymphocytes # (A) 0.7 k/uL (1.0-4.8); Lymphocytes % (A) 14 %; MCH 29.5 pg (25.0-35.0); MCHC 32.3 g/dL (31.0-37.0); MCV 91.4 fL (80.0-100.0); Mean Platelet Volume 6.5; Monocytes # (A) 0.5 k/uL (0-1.0); Monocytes % (A) 9 %; Neutrophils # (A) 3.6 k/uL (1.3-7.7); Neutrophils % (A) 71 %; Platelet Count 325 k/uL (150-450); RBC 3.28 m/uL (4.30-5.90); RDW 14.9 % (11.5-15.5); WBC 5.1 k/uL (3.8-10.6)
[2020-04-17 07:27] LABS: ALT 12 U/L (4-49); AST 23 U/L (17-59); African American GFR (CKD) >90 (>60 ml/min/1.73 sqM); Albumin 2.9 g/dL (3.5-5.0); Alkaline Phosphatase 91 U/L (38-126); Anion Gap 6 mmol/L; Blood Urea Nitrogen 25 mg/dL (9-20); Calcium 8.8 mg/dL (8.4-10.2); Carbon Dioxide 22 mmol/L (22-30); Chloride 105 mmol/L (98-107); Glucose 101 mg/dL (74-99); Non-African American GFR(CKD) 85 (>60 ml/min/1.73 sqM); Sodium 133 mmol/L (137-145); Total Bilirubin 0.7 mg/dL (0.2-1.3); Total Protein 5.4 g/dL (6.3-8.2)
[2020-04-17] MEDS: LOSARTAN 25 MG TAB PO SCH (08:43)
[2020-04-17] MEDS: EZETIMIBE 10 MG TAB PO SCH (08:50)
[2020-04-17] MEDS: CLOPIDOGREL 75 MG TAB PO SCH (08:51)
[2020-04-17] MEDS: levETIRAcetam 250 MG TAB PO SCH (08:51)
[2020-04-17] MEDS: ASPIRIN 81 MG PO SCH (08:51)
[2020-04-17] MEDS: Brimonidine Tartrate/Timolol [Combigan 0.2%-0.5% Eye Drops] LEFT EYE SCH ×2 (08:52→20:48)
[2020-04-17] MEDS: FERROUS SULFATE 325 MG TAB PO SCH (08:52)
[2020-04-17] MEDS ORDERED: CYANOCOBALAMIN 500 MCG TAB PO SCH (09:00)
[2020-04-17] MEDS ORDERED: TAMSULOSIN 0.4 MG CAP.ER.24H PO SCH (09:00)
[2020-04-17] MEDS ORDERED: hydroCHLOROthiazide 25 MG TAB PO SCH (09:00)
[2020-04-17] MEDS: TAMSULOSIN 0.4 MG CAP.ER.24H PO SCH ×2 (09:30→20:48)
[2020-04-17] MEDS: SODIUM CHLORIDE 0.9% 1,000 ML IV SCH (09:32)
--- NOTE | 2020-04-17 10:22 | P.PN ---
Subjective Progress Note Date: 04/17/20 84-year-old male one of my office patient with past medical history of coronary artery disease, Parkinson disease, severe recurrent headache, severe PAD, severe arthritis, severe abnormal mobility with abnormal balancing gait is also noted to have history of obstructive sleep apnea on CPAP who had recent total hip arthroplasty by Dr. Horvath at [facility] and end up being discharged home despite the slow progression on physical therapy but patient and his felt daily able to manage him going home did not require any rehab at the time. Patient has been seen by visiting nurse his called the office this morning with concern that he is having severe increased edema with worsenin g shortness of breath not been able to ambulate or walk become progressively worse with severe dyspnea with minimum exertion. Ended up coming to the emergency department via EMS where was seen and evaluated surprisingly his d- dimer was elevated Doppler of the right leg showed large deep venous thrombosis. CTA showed bilateral pulmonary embolism. Patient was slightly dyspneic require O2 at 2-3 L to keep his pulse ox above 90 percentile. Was started on heparin drip will continue updraft management patient will be admitted for the above problem. 04/17: Patient is seen today in follow-up. He is complaining of pain to the lower right extremity. Blood pressures are on the low side today at 97/60 and hydrochlorothiazide will be discontinued and parameters placed on losartan. Patient required straight cath last night for 1500 ML's. Flomax increased to twice daily. Last to bladder scans have been for 300 ML's and 200 ML's. Patient is been afebrile, heart rate 91, pulse ox 95% on 3 L nasal cannula. Consult in place with pulmonary medicine and Dr. Londono. COVID-19 testing in process. Repeat blood work reveals hemoglobin 9.7, sodium 133, BUN 25 creatinine 0.76. Blood sugar 101. Patient remains on heparin drip. Echocardiogram ordered. fabric stretcher has been a sinus rhythm. PT and OT evaluations will be admitted for tomorrow. health information managers following for discharge planning subacute rehab. Review of Systems CONSTITUTIONAL: Well-developed no acute respiratory distress. Denies fevers. Denies chills. EYES: No icterus sclerae, no conjunctivitis. EARS, NOSE, MOUTH, THROAT, and FACE: No sore throat, lymphadenopathy, carotid bruits or deformity. RESPIRATORY: Significant shortness of breath cough wheezes. CARDIOVASCULAR: Positive PND or to be palpitation with no sign of angina. GASTROINTESTINAL: No Abd pain, no Nausea or vomiting, no Diarrhea or constipation, No GI Bleed, no distention or masses. No appetite. GENITOURINARY: Urinary retention with worsening incontinence with decrease in output lately. INTEGUMENT/BREAST: Negative for any muscular injury with mild osteoarthritis.. HEMATOLOGIC/LYMPHATIC: Mild anemia with no sign of bleeding. MUSCULOSKELTAL: Right total hip arthroplasty. NEURLOGICAL: Parkinson with worsening mobility worsening symptoms. Slight decline in memory. BEHAVIORAL/PSYCH: Negative. ENDOCRINE: Negative. Physical Examination General Appearance: Alert, cooperative, mild distress secondary to pain appears stated age. Neck HEENT: Supple, no lymphadenopathy, no thyroid enlargement, no carotid bruits. Lungs: Decreased breath some bilateral rhonchi positive mild expiratory wheezes. Chest Wall: Decrease expansion with deep inspiration no tenderness and no d eformity was found on exam, no costochondral pain or discomfort. Heart: Regular rate and rhythm, S1, S2 normal, positive PVCs with ejection heart murmur. Back: Symmetric, no curvature, ROM normal, no CVA tenderness. Abdomen: Soft, non-tender, bowel sounds active all four quadrants, no masses, no organomegaly. Extremities: Significant edema in both side worse in the right than the left side 2+ significant pain and discomfort in the right calvarium area all the way to the thigh incision from hip surgery looks fine with no sign of infection at the time. Pulses: 2+ and symmetric. Skin: Skin color, texture, tugor normal, no rashes or lesions. Neurologic: Alert oriented x3 cranial nerves II through XII intact, generalized weakness with no focal deficit severe abnormal balance and gait. Assessment and Plan 1 acute hypoxic respiratory failure with severe dyspnea and shortness of breath: Secondary to pulmonary embolism, will admit patient to the hospital continue heparin drip, echocardiogram will be done consult pulmonary. 2 bilateral pulmonary embolism: Originated from deep venous thrombosis post orthopedic surgery, patient was started on anticoagulation Will follow and echocardiogram result to see any strain on the right side of the heart consult p sophia. Consult vascular surgery. 3 large deep venous thrombosis of the right leg: Patient be on anticoagulation on the time specially with a pulmonary embolism that require to be on anticoagulation for at least the next 6 months. 4 recent history of total hip arthroplasty. Add PT and OT to start tomorrow. Patient will require subacute rehab. 5 debility with worsening symptoms since his total hip arthroplasty. 6 atherosclerotic heart disease: Post angioplasty and stent placement, patient has been seen cardiology regular basis no anginal chest pain at this point his troponin was negative. 7 history of CVA: Patient has been on secondary prevention still on antiplatelet agent and doing well so far. 8 Hypertension: Patient is to be continue on amlodipine 2.5 mg twice a day along with the clonidine 0.1 mg with supper time and hydrochlorothiazide along with losartan 50 mg a day and carvedilol any 5 g twice a day. 9 hyperlipidemia: Remain on Zetia 10 mg a day. And Crestor 20 mg daily. 10 severe BPH with urinary retention requiring straight cath. Increase Flomax to twice daily. 11 history of seizure: The patient will be continue on Keppra 250 mg daily. 12 severe restless leg syndrome: Continue Mirapex 1 mg twice a day. 13 chronic pain management: Patient has been on [place] 10 mg every 4 hours as needed. 14 GI prophylaxis: Continue patient on pantoprazole 40 mg a day. 15 DVT prophylaxis and treatment patient is an anticoagulation. 16 COVID-19 testing CODE STATUS: Full code. Discharge plan: subacute rehab Impression and plan of care have been directed as dictated by the signing physician. Suly Gallo nurse practitioner acting as scribe for signing physici an. Objective - Vital Signs Vital signs: Vital Signs Temp 98.3 F 04/17/20 04:00 Pulse 91 04/17/20 04:00 Resp 19 04/17/20 04:00 BP 129/82 04/17/20 04:00 Pulse Ox 95 04/17/20 04:00 Intake & Output 04/16/20 04/17/20 04/17/20 18:59 06:59 18:59 Intake Total 225.031 28.525 Output Total 1500 Balance -1274.969 28.525 Weight 97.522 kg 81.5 kg Intake: Intake, IV Titration 225.031 28.525 Amount Heparin Sod,Pork in 0.45% 225.031 28.525 NaCl 25,000 unit In 0.45 % NaCl 1 250ml.bag @ 18 UNITS/KG/HR 17.554 mls/hr IV .[id number] [facility] Rx#: [id number] Output: Urine 1500 Other: Voiding Method Diaper Incontinent - Labs CBC & Chem 7: 04/17/20 06:23 04/17/20 06:23 Labs: Abnormal Lab Results - Last 24 Hours (Table) 04/16/20 04/16/20 04/16/20 Range/Units 12:25 12:25 12:25 RBC 3.37 L (4.30-5.90) m/uL Hgb 10.1 L (13.0-17.5) gm/dL Hct 30.4 L (39.0-53.0) % Lymphocytes # 0.6 L (1.0-4.8) k/uL APTT (22.0-30.0) sec D-Dimer >35.20 H (<0.60) mg/L FEU Sodium 131 L (137-145) mmol/L BUN 27 H (9-20) mg/dL Creatinine 0.65 L (0.66-1.25) mg/dL Glucose 102 H (74-99) mg/dL Creatine Kinase 27 L (55-170) U/L Total Protein (6.3-8.2) g/dL Albumin (3.5-5.0) g/dL 04/16/20 04/17/20 04/17/20 Range/Units 23:50 06:23 06:23 RBC 3.28 L (4.30-5.90) m/uL Hgb 9.7 L (13.0-17.5) gm/dL Hct 30.0 L (39.0-53.0) % Lymphocytes # 0.7 L (1.0-4.8) k/uL APTT 135.1 H* (22.0-30.0) sec D-Dimer (<0.60) mg/L FEU Sodium 133 L (137-145) mmol/L BUN 25 H (9-20) mg/dL Creatinine (0.66-1.25) mg/dL Glucose 101 H (74-99) mg/dL Creatine Kinase (55-170) U/L Total Protein 5.4 L (6.3-8.2) g/dL Albumin 2.9 L (3.5-5.0) g/dL 04/17/20 Range/Units 06:23 RBC (4.30-5.90) m/uL Hgb (13.0-17.5) gm/dL Hct (39.0-53.0) % Lymphocytes # (1.0-4.8) k/uL APTT 95.9 H (22.0-30.0) sec D-Dimer (<0.60) mg/L FEU Sodium (137-145) mmol/L BUN (9-20) mg/dL Creatinine (0.66-1.25) mg/dL Glucose (74-99) mg/dL Creatine Kinase (55-170) U/L Total Protein (6.3-8.2) g/dL Albumin (3.5-5.0) g/dL
[2020-04-17] MEDS: RIVAROXABAN 15 MG TAB PO SCH ×2 (12:18→17:20)
--- NOTE | 2020-04-17 12:31 | ECHOF ---
Referral Reason:LVF, s/p PE MEASUREMENTS -------- HEIGHT: 165.1 cm WEIGHT: 81.2 kg BP: RVIDd: 3.3 cm (< 3.3) IVSd: 1.2 cm (0.6 - 1.1) LVIDd: 5.3 cm (3.9 - 5.3) LVPWd: 1.4 cm (0.6 - 1.1) IVSs: 1.7 cm LVIDs: 3.1 cm LVPWs: 1.4 cm Ao Diam: 3.6 cm (2.0 - 3.7) AV Cusp: 1.2 cm (1.5 - 2.6) LA Diam: 3.5 cm (2.7 - 3.8) MV EXCURSION: 13.189 mm (> 18.000) MV EF SLOPE: 44 mm/s (70 - 150) EPSS: 0.6 cm MV E Shant: 0.46 m/s MV DecT: 107 ms MV A Shant: 0.73 m/s MV E/A Ratio: 0.64 AV maxP.10 mmHg AV meanP.82 mmHg RAP: 5.00 mmHg RVSP: 32.30 mmHg FINDINGS -------- Sinus rhythm. This was a technically difficult study with suboptimal views. The left ventricular size is normal. There is mild concentric left ventricular hypertrophy. Overa ll left ventricular systolic function is normal with, an EF between 55 - 60 %. The right ventricle is mildly enlarged. The left atrial size is normal. The right atrial size is normal. Lumason used Interatrial and interventricular septum intact. Aortic valve is trileaflet and is mildly thickened. There is mild aortic stenosis present. Peak/m vannesa gradient across the Aortic Valve is 16.10mmHg / 9.82mmHg. The mitral valve is normal. There is trace mitral regurgitation. The tricuspid valve appears structurally normal. Trace tricuspid regurgitation present. Right alton tricular systolic pressure is normal at < 35 mmHg. There is no pulmonic regurgitation present. The aortic root size is normal. IVC Not well visulized. There is no pericardial effusion. CONCLUSIONS -------- 1. There is mild concentric left ventricular hypertrophy. 2. Overall left ventricular systolic function is normal with, an EF between 55 - 60 %. 3. The right ventricle is mildly enlarged. 4. Aortic valve is trileaflet and is mildly thickened. 5. There is mild aortic stenosis present. 6. Peak/mean gradient across the Aortic Valve is 16.10mmHg / 9.82mmHg. 7. There is trace mitral regurgitation. 8. Trace tricuspid regurgitation present. EXHAUST WORKER: Marbella Benjamin RDCS
[2020-04-17 12:34] LABS: Appearance,Urine Clear (Clear); Bilirubin,Urine Negative (Negative); Blood,Urine Negative (Negative); Color,Urine Light Yellow; Glucose,Urine (UA) Negative (Negative); Ketones,Urine Negative (Negative); Leukocyte Esterase,Urine Negative (Negative); Nitrite,Urine Negative (Negative); Protein,Urine Negative (Negative); Specific Gravity,Urine 1.018 (1.001-1.035); Urobilinogen,Urine <2.0 mg/dL (<2.0)
[2020-04-17] MEDS ORDERED: MAGNESIUM HYDROXIDE 2,400 MG/10 ML CUP PO PRN (12:41)
--- NOTE | 2020-04-17 16:55 | CONS ---
CONSULTATION PULMONARY/CRITICAL CARE CONSULTATION: REASON FOR CONSULTATION: Pulmonary embolism. This is an 84-year-old gentleman who was brought into the emergency room by EMS. He apparently presented there on 04/16 at 1642. This is an 84-year-old male who complains of back pain. He also complaining of shortness of breath. He recently had hip surgery on March 27 of this month. He had a hip replacement. He apparently came in with back and chest pain as well as shortness of breath. This has been going on for a couple days now. He has also had some increasing lower extremity edema on the left side but also on the right side as well. There is no fever or chills. There is no cough or phlegm production. He denied any nausea, vomiting, diarrhea, or any genitourinary complaints. Apparently in the process of evaluating him, the patient had a CT angiogram which apparently showed pulmonary embolism. The pulmonary embolism is probably provoked and is likely result of his left hip procedure. Currently, he is resting comfortably. He is not on any supplemental oxygen. He is not having any shortness of breath currently. He is currently on IV heparin. I did start him on a factor Xa inhibitor. HOME MEDICATIONS: Include Catapres, Singulair, vitamin D3, hydrochlorothiazide, Keppra, iron, Losartan, eye drops, Coreg, Robaxin, baclofen, Fioricet, Plavix, vitamin B12, Zetia, Perry, Mirapex, calcium, senna, Flomax, Norvasc, and Keppra. Also, he has been on aspirin 81 mg. ALLERGIES: Reviewed. He apparently has allergies to REGLAN and OXYCONTIN. MEDICAL HISTORY: Rather extensive and includes CAD, chest pain, CVA, GERD, GI bleed, hyperlipidemia, hypertension, osteoarthritis, and syncope. He also suffers from sleep apnea syndrome, in addition, the patient has a history of Parkinson's disease, neuralgia, bilateral hand and feet neuropathy, carotid artery stenosis, anemia, GI bleed, and bronchitis. PAST SURGICAL HISTORY: Includes among other things adenoidectomy, back surgery, heart catheterization with stent, hernia repair, joint replacement, prostate surgery, tonsillectomy, EGD/colonoscopy, bilateral total knee replacement, cataract surgery with lens implants, as well as hemorrhoidectomy. SOCIAL HISTORY: Negative. He does not do alcohol or illicit drugs. He apparently does not smoke as well. FAMILY HISTORY: Significant for a brother with no major medical problems, a sister with hypertension. A son with no major medical problems, father with myocardial infarction, Parkinson's disease, bowel cancer and bone cancer and mother with previous myocardial infarction. REVIEW OF SYSTEMS: CONSTITUTIONAL: Negative. NEUROLOGIC: Negative. HEENT: Negative. CARDIOVASCULAR: Chest pain. PULMONARY: Shortness of breath. GI: Negative. : Negative. RHEUMATOLOGIC: Back pain. IMMUNOLOGIC: Negative. ENDOCRINOLOGIC: Negative. DERMATOLOGIC: Negative. Current vital signs are reviewed. His temperature is 97.8, heart rate 78, respiratory rate 18, blood pressure 107/61 mean 76, room air saturation 94%. Appears in no acute distress. HEENT: Examination is grossly unremarkable. NECK: Supple, full range of motion. No adenopathy or thyromegaly. Neck veins are flat. CARDIOVASCULAR: Examination reveals regular rhythm and rate. Heart rate mid 70s. S1, S2 normal. No S3, S4, or murmur. LUNGS: Reveal primarily clear breath sounds. No wheezes or crackles. A few scattered mild rhonchi. Nothing really impressive. Breath sounds equal bilaterally. ABDOMEN: Soft, bowel sounds are heard. EXTREMITIES: Intact. Slight edema. No significant pitting. No cyanosis or clubbing. SKIN: Without rash. NEUROLOGIC: Examination is brief but nonfocal. LABS: Reviewed. White count 5.1, hemoglobin 9.7, hematocrit 30.0, platelet count 325.000, PTT is 95.9. D-dimer is greater than 35. Sodium 133, potassium 4, chloride 105, CO2 is 22, anion gap is 6. BUN and creatinine 25 and 0.76. The rest of labs look okay. Troponin less than 0.012. N-terminal proBNP is 521. Urine is negative. Microbiology is pending or negative. A chest x-ray showed nothing acute. Venous Doppler showed a DVT in the right leg. It was negative on the left side. Chest CTA showed bilateral pulmonary emboli, noted in the segmental branches of the left lower lobe, left upper lobe, and right middle lobe. ASSESSMENT: 1. Status post recent left hip replacement, March 27 and subsequent DVT of the right leg and bilateral pulmonary emboli. 2. History of coronary artery disease. 3. History of angina pectoris. 4. History of cerebrovascular accident. 5. History of bilateral cataract surgery with lens implants. 6. Gastroesophageal reflux disease. 7. History of GI bleed. 8. History of hyperlipidemia. 9. History of hypertension. 10.Degenerative joint disease. 11.Prostate cancer. 12.Sleep apnea syndrome. 13.Syncope. 14.Multiple other medical problems and comorbidities. PLAN: Currently the patient is on IV heparin. The patient will be started on Xarelto. She will take Xarelto 50 mg twice a day for 21 days and then 20 mg once a day for a full 3 months of therapy. This is a result related to the recent left hip surgery. There is relative will treat both the pulmonary embolism and the DVT in the right leg. Down the road, he will need a followup CT angiogram to make sure the fibrinolytic system is doing what it should be doing. Additional recommendations and suggestions are forthcoming. Prognosis is generally thought to be guarded. LOLI / FARHAT: [id number] / MTDD
[2020-04-17] MEDS: SENNOSIDES-DOCUSATE SODIUM 1 EACH TAB PO SCH (17:16)
[2020-04-17] MEDS: PRAMIPEXOLE 0.5 MG TAB PO SCH ×2 (17:19→20:48)
[2020-04-17] MEDS ORDERED: CHOLECALCIFEROL 1,000 UNIT TAB PO SCH (17:30)
[2020-04-17] MEDS ORDERED: levETIRAcetam 250 MG TAB PO SCH (17:30)
[2020-04-17] MEDS ORDERED: cloNIDine HCL 0.1 MG TAB PO SCH (17:30)
[2020-04-17] MEDS ORDERED: ATORVASTATIN 20 MG TAB PO SCH (21:00)
[2020-04-17] MEDS ORDERED: LATANOPROST 0.005% OPHTH DROPS 2.5 ML BTL BOTH EYES SCH (21:00)
[2020-04-17] MEDS ORDERED: MONTELUKAST 10 MG TAB PO SCH (21:00)
--- NOTE | 2020-04-17 23:23 | CONS ---
CONSULTATION This is an 84-year-old gentleman who has been admitted with a history of DVT of the leg. Patient had right hip surgery done recently which shows a DVT of the nonocclusive iliac femoral and SFA. The patient also had a CT scan of the chest which showed bilateral pulmonary emboli. The patient is on heparin. The patient also has a history of parkinsonism disease and multiple medical issues. He has a history of coronary artery disease, history of angina, history of CVA in the past, history of GI bleed in the past, hypertension, history of prostate cancer. On examination, the patient was seen in his room, lying comfortably in bed. NECK: Supple. CHEST: Clear. A few crackles at the lung bases. ABDOMEN: Soft, nontender. Femoral pulses are palpable, dorsal pedis palpable. No vascular compromise noted. IMPRESSION: Iliofemoral deep venous thrombosis with bilateral pulmonary emboli. PLAN: Continue with the heparin. Patient will be switched to Eliquis. At this point there is no vascular compromise. When patient is discharged from the hospital, he will follow up in the office in 3 weeks. MMODL / IJN: [id number] /
[2020-04-18] MEDS: MORPHINE SULFATE 4 MG/ML SYRINGE IV PRN (04:46)
[2020-04-18 04:58] VITALS: RESP 18
[2020-04-18] MEDS: amLODIPine 5 MG TAB PO SCH (06:25)
[2020-04-18] MEDS: SENNOSIDES 8.6 MG TAB PO SCH (06:25)
[2020-04-18] MEDS: RIVAROXABAN 15 MG TAB PO SCH (06:26)
[2020-04-18] MEDS: PANTOPRAZOLE 40 MG TABLET PO SCH (06:26)
[2020-04-18] MEDS: carvediloL 12.5 MG TAB PO SCH (06:26)
[2020-04-18 06:34] LABS: HCT 26.3 % (39.0-53.0); HGB 8.5 gm/dL (13.0-17.5); MCH 29.4 pg (25.0-35.0); MCHC 32.5 g/dL (31.0-37.0); MCV 90.5 fL (80.0-100.0); Mean Platelet Volume 6.5; Platelet Count 272 k/uL (150-450); RDW 14.5 % (11.5-15.5); WBC 5.8 k/uL (3.8-10.6)
[2020-04-18 06:48] LABS: African American GFR (CKD) >90 (>60 ml/min/1.73 sqM); Anion Gap 5 mmol/L; Blood Urea Nitrogen 22 mg/dL (9-20); Calcium 8.5 mg/dL (8.4-10.2); Carbon Dioxide 24 mmol/L (22-30); Chloride 103 mmol/L (98-107); Glucose 99 mg/dL (74-99); Non-African American GFR(CKD) >90 (>60 ml/min/1.73 sqM); Potassium 3.8 mmol/L (3.5-5.1); Sodium 132 mmol/L (137-145)
[2020-04-18] MEDS ORDERED: bisacodyL 10 MG SUPP RECTAL STA (09:10)
--- NOTE | 2020-04-18 09:17 | P.DS ---
Providers Date of admission: 04/16/20 16:42 Expected date of discharge: 04/18/20 Attending physician: Louis Lawson Consults: 04/16/20 16:42 Consult Physician Routine Consulting Provider: Stephan Pedroza Consult Reason/Comments: pulmonary emboli Do you want consulting provider notified?: Yes 04/16/20 22:53 Consult Physician Routine Consulting Provider: Jose Londono Consult Reason/Comments: R DVT Do you want consulting provider notified?: Yes Primary care physician: Louis Lawson [facility] Course: 84-year-old male one of my office patient with past medical history of coronary artery disease, Parkinson disease, severe recurrent headache, severe PAD, severe arthritis, severe abnormal mobility with abnormal balancing gait is also noted to have history of obstructive sleep apnea on CPAP who had recent total hip arthroplasty by Dr. Horvath at [facility] and end up being discharged home despite the slow progression on physical therapy but patient and his felt daily able to manage him going home did not require any rehab at the time. Patient has been seen by visiting nurse his called the office this morning with concern that he is having severe increased edema with worsening shortness of breath not been able to ambulate or walk become progressively worse with severe dyspnea with minimum exertion. Ended up coming to the emergency department via EMS where was seen and evaluated surprisingly his d-dimer was elevated Doppler of the right leg showed large deep venous thrombosis. CTA showed bilateral pulmonary embolism. Patient was slightly dyspneic require O2 at 2-3 L to keep his pulse ox above 90 percentile. Was started on heparin drip will continue updraft management patient will be admitted for the above problem. 04/17: Patient is seen today in follow-up. He is complaining of pain to the lower right extremity. Blood pressures are on the low side today at 97/60 and hydrochlorothiazide will be discontinued and parameters placed on losartan. Patient required straight cath last night for 1500 ML's. Flomax increased to twice daily. Last to bladder scans have been for 300 ML's and 200 ML's. Patient is been afebrile, heart rate 91, pulse ox 95% on 3 L nasal cannula. Consult in place with pulmonary medicine and Dr. Londono. COVID-19 testing in process. Repeat blood work reveals hemoglobin 9.7, sodium 133, BUN 25 creatini ne 0.76. Blood sugar 101. Patient remains on heparin drip. Echocardiogram ordered. crossing tender has been a sinus rhythm. PT and OT evaluations will be admitted for tomorrow. software test manager following for discharge planning subacute rehab. 04/18: Echocardiogram reveals EF of 55-60%, mild aortic stenosis, trace mitral regurgitation, trace tricuspid regurgitation. He has been seen by Dr. Londono with recommendations to follow up in the office in 3 weeks. The patient was started on Xarelto yesterday and cleared for discharge by Dr. Pedroza. Patient was complaining of constipation yesterday for which scheduled Senokot and milk of magnesia were added. Patient states he has not had a bowel movement and is open to having Dulcolax suppository today. He remains with Olivo catheter in place which will plan to continue for 48 hours and will be discontinued at the skilled nursing. Patient denies having any shortness of breath, chest pain. Patient has been afebrile, heart rate 87, blood pressure 139/70, pulse ox 90% on room air. Repeat blood work reveals that he DC 5.8, hemoglobin 8.5. Sodium 132, BUN 22 and creatinine 0.63. Assessment and Plan 1 acute hypoxic respiratory failure with severe dyspnea and shortness of breath: Secondary to pulmonary embolism. 2 bilateral pulmonary embolism: Originated from deep venous thrombosis post orthopedic surgery. 3 large deep venous thrombosis of the right leg. 4 recent history of total hip arthroplasty. 5 debility with worsening symptoms since his total hip arthroplasty. 6 atherosclerotic heart disease: Post angioplasty and stent placement. 7 history of CVA. 8 Hypertension. 9 hyperlipidemia. 10 severe BPH with urinary retention requiring straight cath and subsequently Olivo catheter.. 11 history of seizure. 12 severe restless leg syndrome. 13 chronic pain management. 14 COVID-19 infection not present Discharge plan: [facility] for subacute rehab Impression and plan of care have been directed as dictated by the signing physician. Suly Gallo nurse practitioner acting as scribe for signing physician. Patient Condition at Discharge: Good Plan - Discharge Summary Discharge Rx Participant: Yes New Discharge Prescriptions: New Rivaroxaban [Xarelto Starter Pack] 0 mg PO DIRECTED 30 Days #1 pack Magnesium Hydroxide [Milk of Magnesia Concentrate] 2,400 mg PO DAILY PRN ml PRN Reason: Constipation Pantoprazole [Protonix] 40 mg PO AC-BRKFST tablet.dr Continue cloNIDine HCL [Catapres] 0.1 mg PO W/SUPPER Montelukast [Singulair] 10 mg PO HS Cholecalciferol [Vitamin D3 (25 Mcg = 1000 Iu)] 5,000 unit PO W/SUPPER levETIRAcetam [Keppra] 250 mg PO DAILY hydroCHLOROthiazide 25 mg PO DAILY Ferrous Sulfate [Iron (65 MG Elemental)] 325 mg PO DAILY Losartan Potassium 50 mg PO DAILY carvediloL [Carvedilol] 25 mg PO BID-W/MEALS Brimonidine Tartrate/Timolol [Combigan 0.2%-0.5% Eye Drops] 1 drop LEFT EYE BID Methocarbamol [Robaxin-750] 750 mg PO TID PRN PRN Reason: muscle spasms Aspirin 81 mg PO DAILY chew amLODIPine [Norvasc] 2.5 mg PO BID-W/MEALS Sennosides [Senna] 8.6 mg PO BID-W/MEALS Rosuvastatin Calcium 20 mg PO HS Cyanocobalamin (Vitamin B-12) [Vitamin B-12] 2,500 mcg PO DAILY Pramipexole [Mirapex] 1 mg PO BID@1800,2100 levETIRAcetam 500 mg PO W/SUPPER Ezetimibe [Zetia] 10 mg PO DAILY Clopidogrel [Plavix] 75 mg PO DAILY Latanoprost/Pf [Latanoprost 0.005% Eye Drop] 1 drop BOTH EYES HS Baclofen 10 mg PO TID PRN PRN Reason: Muscle Spasm Buta/APAP/Caf/Cod 70-828-41-30 [Fioricet w/Cod 70-536-53-30MG] 1 - 2 cap PO Q4H PRN #18 cap MDD 4 caps PRN Reason: Migraine Headache HYDROcodone/APAP 10-325MG [Campton 10-325] 1 tab PO Q5H PRN #12 tab PRN Reason: Pain Changed Tamsulosin [Flomax] 0.4 mg PO BID #0 Discharge Medication List cloNIDine HCL [Catapres] 0.1 mg PO W/SUPPER 05/21/14 [History] Montelukast [Singulair] 10 mg PO HS 09/19/15 [History] Cholecalciferol [Vitamin D3 (25 Mcg = 1000 Iu)] 5,000 unit PO W/SUPPER 03/05/17 [History] hydroCHLOROthiazide 25 mg PO DAILY 02/07/18 [History] levETIRAcetam [Keppra] 250 mg PO DAILY 02/07/18 [History] Ferrous Sulfate [Iron (65 MG Elemental)] 325 mg PO DAILY 07/14/18 [History] Losartan Potassium 50 mg PO DAILY 07/14/18 [History] Brimonidine Tartrate/Timolol [Combigan 0.2%-0.5% Eye Drops] 1 drop LEFT EYE BID 08/23/18 [History] carvediloL [Carvedilol] 25 mg PO BID-W/MEALS 08/23/18 [History] Methocarbamol [Robaxin-750] 750 mg PO TID PRN 06/18/19 [History] Aspirin 81 mg PO DAILY chew 06/26/19 [Rx] Baclofen 10 mg PO TID PRN 04/16/20 [History] Clopidogrel [Plavix] 75 mg PO DAILY 04/16/20 [History] Cyanocobalamin (Vitamin B-12) [Vitamin B-12] 2,500 mcg PO DAILY 04/16/20 [History] Ezetimibe [Zetia] 10 mg PO DAILY 04/16/20 [History] Latanoprost/Pf [Latanoprost 0.005% Eye Drop] 1 drop BOTH EYES HS 04/16/20 [History] Pramipexole [Mirapex] 1 mg PO BID@1800,2100 04/16/20 [History] Rosuvastatin Calcium 20 mg PO HS 04/16/20 [History] Sennosides [Senna] 8.6 mg PO BID-W/MEALS 04/16/20 [History] amLODIPine [Norvasc] 2.5 mg PO BID-W/MEALS 04/16/20 [History] levETIRAcetam 500 mg PO W/SUPPER 04/16/20 [History] Rivaroxaban [Xarelto Starter Pack] 0 mg PO DIRECTED 30 Days #1 pack 04/17/20 [Rx] Buta/APAP/Caf/Cod [id number] [Fioricet w/Cod 73-236-25-30MG] 1 - 2 cap PO Q4H PRN #18 cap MDD 4 caps 04/18/20 [Rx] HYDROcodone/APAP 10-325MG [Campton 10-325] 1 tab PO Q5H PRN #12 tab 04/18/20 [Rx] Magnesium Hydroxide [Milk of Magnesia Concentrate] 2,400 mg PO DAILY PRN ml 04/18/20 [Rx] Pantoprazole [Protonix] 40 mg PO AC-BRKFST tablet. 04/18/20 [Rx] Tamsulosin [Flomax] 0.4 mg PO BID #0 04/18/20 [Rx] Follow up Appointment(s)/Referral(s): Louis Lawson MD [Primary Care Provider] - 1 Week (at [facility]) Memo Horvath MD [REFERRING] - 1 Week Activity/Diet/Wound Care/Special Instructions: Discontinue Olivo catheter in 48 hours. Xarelto covered by insurance with a $47 copay Discharge Disposition: TRANSFER TO SNF/ECF
[2020-04-18] MEDS: ASPIRIN 81 MG PO SCH (10:23)
[2020-04-18] MEDS: FERROUS SULFATE 325 MG TAB PO SCH (10:24)
[2020-04-18] MEDS: EZETIMIBE 10 MG TAB PO SCH (10:24)
[2020-04-18] MEDS: CLOPIDOGREL 75 MG TAB PO SCH (10:24)
[2020-04-18] MEDS: SENNOSIDES-DOCUSATE SODIUM 1 EACH TAB PO SCH (10:25)
[2020-04-18] MEDS: LOSARTAN 25 MG TAB PO SCH (10:25)
[2020-04-18] MEDS: TAMSULOSIN 0.4 MG CAP.ER.24H PO SCH (10:25)
[2020-04-18] MEDS: levETIRAcetam 250 MG TAB PO SCH (10:25)
[2020-04-18] MEDS: Brimonidine Tartrate/Timolol [Combigan 0.2%-0.5% Eye Drops] LEFT EYE SCH (10:26)
--- NOTE | 2020-04-18 12:33 | PN ---
PROGRESS NOTE PULMONARY/CRITICAL CARE PROGRESS NOTE: DATE OF SERVICE: 04/18/2020 This is an 84-year-old gentleman who I saw yesterday in consultation. He was brought into the emergency room by EMS. He presented on April 16. He apparently complained of back pain and some shortness of breath. He had hip surgery on March 27. He had a hip replacement. In addition, he came in with back pain, chest pain and shortness of breath. CT angiogram revealed a pulmonary embolism. That is a provoked PE based on his recent left hip procedure. Anyway, he is resting comfortably. He is currently not requiring any supplemental oxygen. Does not feel short of breath. We started him on Xarelto yesterday. We discontinued the IV heparin. The patient apparently is going to end up at [facility] or one of the nursing homes. I am not sure exactly when. Current vital signs include a temperature of 96.4, heart rate 79, respiratory rate 18, blood pressure 126/80 mean 95, 2 L saturation 95%. Appears in no acute distress. HEENT: Examination is grossly unremarkable. NECK: Supple, full range of motion. No adenopathy. Neck veins are flat. CARDIOVASCULAR: Examination reveals regular rhythm and rate. Heart rate mid 70s. S1, S2 normal. LUNGS: Reveal mostly clear breath sounds. No wheezes. No crackles. Breath sounds equal. ABDOMEN: Soft. EXTREMITIES: Intact. No cyanosis, clubbing, or edema. SKIN: Without rash. NEUROLOGIC: Examination is brief but nonfocal. LABS: Reviewed. White count 5.8, hemoglobin 8.5, hematocrit 26.3, platelet count 272,000. Sodium 132, potassium 3.8, chloride is 103, CO2 is 24, anion gap is 5. BUN and creatinine were 22 and 0.63. Urinalysis is negative. Microbiology is negative. No recent chest x-ray to report. Medications are reviewed. ASSESSMENT: 1. Status post recent left hip replacement, March 27 and subsequent DVT of the right leg and bilateral pulmonary emboli. 2. History of coronary artery disease. 3. History of angina pectoris. 4. History of CVA. 5. History of bilateral cataract surgery with lens implants. 6. Gastroesophageal reflux disease by history. 7. History of gastrointestinal bleed. 8. History of hyperlipidemia. 9. History of hypertension. 10.Degenerative joint disease. 11.Prostate cancer. 12.Sleep apnea syndrome. 13.Syncope. 14.Multiple other medical problems and comorbidities. PLAN: The patient was transitioned to Xarelto from IV heparin. He will receive Xarelto 15 mg twice a day for 21 days and then 20 mg once a day for a full 3 months. This is a provoked pulmonary embolism. He should be treated for 3 months. He does need a followup CT angiogram. Additional recommendations and suggestions are forthcoming. There was some talk that he might be discharged, when he is discharged to a nursing facility/rehab facility. LOLI / NAPOLEONN: [id number] /
[2020-04-18 13:43] VITALS: BP 115/63; PULSE 80; TEMP 96.9
== END 2020-04-18 14:45 | DRG 175 ==
LOC: EC 11:43 → 3SCARD 16:42
PROVIDERS: ADMIT Internal Medicine Geriatric Medicine; ATTEND Internal Medicine Geriatric Medicine
DX: I26.99 Other pulmonary embolism without acute cor pulmonale (principal); J96.01 Acute respiratory failure with hypoxia; I82.421 Acute embolism and thrombosis of right iliac vein; I82.411 Acute embolism and thrombosis of right femoral vein; G20 Parkinson's disease; E78.5 Hyperlipidemia, unspecified; R33.8 Other retention of urine; G25.81 Restless legs syndrome; I10 Essential (primary) hypertension; I25.10 Atherosclerotic heart disease of native coronary artery without angina pectoris; K21.9 Gastro-esophageal reflux disease without esophagitis; K59.00 Constipation, unspecified; M19.90 Unspecified osteoarthritis, unspecified site; N40.1 Benign prostatic hyperplasia with lower urinary tract symptoms; Z11.59 Encounter for screening for other viral diseases; G47.33 Obstructive sleep apnea (adult) (pediatric); G62.9 Polyneuropathy, unspecified; I65.29 Occlusion and stenosis of unspecified carotid artery; R55 Syncope and collapse; M47.814 Spondylosis without myelopathy or radiculopathy, thoracic region; H40.9 Unspecified glaucoma; G89.29 Other chronic pain; I49.3 Ventricular premature depolarization; R01.1 Cardiac murmur, unspecified; R53.81 Other malaise; I73.9 Peripheral vascular disease, unspecified; I69.992 Facial weakness following unspecified cerebrovascular disease; Z79.02 Long term (current) use of antithrombotics/antiplatelets; Z79.82 Long term (current) use of aspirin; Z79.899 Other long term (current) drug therapy; Z88.5 Allergy status to narcotic agent; Z88.8 Allergy status to other drugs, medicaments and biological substances; Z98.42 Cataract extraction status, left eye; Z96.653 Presence of artificial knee joint, bilateral; Z98.41 Cataract extraction status, right eye; Z96.1 Presence of intraocular lens; Z96.642 Presence of left artificial hip joint; Z90.89 Acquired absence of other organs; Z90.79 Acquired absence of other genital organ(s); Z95.5 Presence of coronary angioplasty implant and graft; Z85.46 Personal history of malignant neoplasm of prostate; Z92.21 Personal history of antineoplastic chemotherapy; Z92.3 Personal history of irradiation; Z87.440 Personal history of urinary (tract) infections; Z87.442 Personal history of urinary calculi; Z99.89 Dependence on other enabling machines and devices; Z82.0 Family history of epilepsy and other diseases of the nervous system; Z82.3 Family history of stroke; Z82.49 Family history of ischemic heart disease and other diseases of the circulatory system; Z83.3 Family history of diabetes mellitus; Z80.0 Family history of malignant neoplasm of digestive organs; Z80.8 Family history of malignant neoplasm of other organs or systems; Z84.89 Family history of other specified conditions
CPT/HCPCS: 36415; 71046; 71275; 80048; 80053; 81003; 82550; 83605; 83735; 83880; 84484; 85025; 85027; 85379; 85610; 85730; 87635; 93005; 93306; 93970; 96361; 96365; 96366; 96374; 96375; 96376; 99285

== ENCOUNTER 2020-04-28 14:43 | Inpatient (IN) | payer MEDICARE ==
--- NOTE | 2020-04-28 15:33 | ED ---
General Adult HPI - General Chief complaint: Seizure Stated complaint: Seizure Time Seen by Provider: 04/28/20 15:02 Source: patient Mode of arrival: ambulatory Limitations: no limitations - History of Present Illness Initial comments: Dictation was produced using [employer] dictation software. please excuse any grammatical, word or spelling errors. This patient was cared for during a federal and state declared state of emergency secondary to Covid 19 Chief Complaint: 84-year-old male presents with altered mental status. History of Present Illness: 84-year-old male he was transferred from [facility] for concerns of seizure. History was obtained from , gilma was a nurse at [facility] and nursing received report from EMS. According to patient was sent over from [facility] for concerns of seizure. Over the last week patient has had multiple episodes of similar events. described the events as seizures. He does have a history of seizure for which she takes Keppra. According to who receives some report from [facility] he was sent here for prolonged altered mental status. She did not witness the event or events that happened this week. More history was obtained from gilma, nurse was taking care of patient today. She reports that approximately 2 PM he had just come back from physical therapy. He requested a pain pill. Shortly after patient became unresponsive. According to gilma patient was unresponsive for approximately 25-30 minutes. She denies that patient had episode of tonic-clonic like activity. She was told that patient has seizures for which she becomes unresponsive and almost flaccid. She does report that patient was responding to painful stimuli. She reports that patient had 34 other episodes in the last week. She states that one of the episodes he showed signs of tonic-clonic activity. Otherwise patient become unresponsive for 30-40 seconds. He would then return to baseline almost immediately. He was sent to the emergency department today because patient seemed confused after this episode for approximately 30-40 minutes. at bedside reports that patient seems slow to respond. Patient has no complaint at that time. Reports that patient is more confused and slow to speak than usual when he is typically very interactive and quicker to speak. Patient has any complaints at this time. He is allegedly at [facility] after being diagnosed with deep venous thrombosis provoked by recent hip surgery. The ROS documented in this emergency department record has been reviewed and confirmed by me. Those systems with pertinent positive or negative responses have been documented in the HPI. All other systems are other negative and/or noncontributory. PHYSICAL EXAM: General Impression: Alert and oriented x3, not in acute distress, slow to speak HEENT: Normocephalic atraumatic, extra-ocular movements intact, pupils equal and reactive to light bilaterally, mucous membranes moist. Cardiovascular: Heart regular rate and rhythm Chest: Able to complete full sentences, no retractions, no tachypnea Abdomen: abdomen soft, non-tender, non-distended, no organomegaly Musculoskeletal: Pulses present and equal in all extremities, no peripheral edema Motor: no focal deficits noted Neurological: CN II-XII grossly intact, no facial asymmetry, 3+ strength to the right lower extremity compared to 4+ strength in the left extremity, no upper extremity drift, mildly aphasic, when asked when he first met his he was answering inappropriately Skin: Intact with no visualized rashes Psych: Normal affect and mood ED course: 84-year-old male with multiple comorbidities presents today with altered mental status. As upon arrival are within acceptable limits. Chart review was performed. Patient had EEG on our medical record as recently as June 2019. At that point it was a limited study and she did not confidently suggests that patient has EEG waves. Instead what they found was that patient had signs of toxic metabolic encephalopathy. Crit to discharge summary most recently patient was admitted for acute approximate respiratory failure secondary to pulmonary embolus, DVT of the right lower extremity. He does have a history of CVA. At this point patient's clinical presentation is more likely to be syncope as opposed to seizure. nurse Gilma from [facility] reports that he been worked up for these episodes by cardiology and neurology with no obvious cause. He did have Keppra medications increased recently. Laboratory evaluation obtained. CBC is within normal limits. Coag panel is within normal limits. Metabolic panel shows hyponatremia with a level 122. He is also hypochloremic. Rest metabolic panel is unremarkable. Computed tomography scan of the brain is unremarkable. Patient given intravenous fluids. Discussed patient case with Dr. Sweeney was went except patient's care. Medications are reviewed. Hyponatremia is likely multifactorial secondary to hydrochlorothiazide, and poor oral intake. Neurology and nephrology will be consulted. EKG interpretation: Ventricular rate 67, normal sinus rhythm,. Interval to 4, QRS 90, QTc 460. No WA prolongation, no QTC prolongation, no ST or T-wave changes noted. EKG compared to 04/08/2020 showing no changes. Overall, this EKG is unremarkable - Related Data Home Medications Medication Instructions Recorded Confirmed cloNIDine HCL [Catapres] 0.1 mg PO DAILY@169905/21/14 04/28/20 Montelukast [Singulair] 10 mg PO HS@209909/19/15 04/28/20 Cholecalciferol [Vitamin D3 (25 5,000 unit PO DAILY@169903/05/17 04/28/20 Mcg = 1000 Iu)] hydroCHLOROthiazide 25 mg PO DAILY@79902/07/18 04/28/20 Ferrous Sulfate [Iron (65 MG 325 mg PO DAILY@169907/14/18 04/28/20 Elemental)] Brimonidine Tartrate/Timolol 1 drop LEFT EYE BID@0800,169908/23/18 04/28/20 [Combigan 0.2%-0.5% Eye Drops] carvediloL [Carvedilol] 25 mg PO BID@0800,169908/23/18 04/28/20 Baclofen 10 mg PO TID PRN 04/16/20 04/28/20 Clopidogrel [Plavix] 75 mg PO DAILY@79904/16/20 04/28/20 Cyanocobalamin (Vitamin B-12) 2,500 mcg PO DAILY@79904/16/20 04/28/20 [Vitamin B-12] Ezetimibe [Zetia] 10 mg PO DAILY@79904/16/20 04/28/20 Latanoprost/Pf [Latanoprost 0.005% 1 drop BOTH EYES HS@209904/16/20 04/28/20 Eye Drop] Rosuvastatin Calcium 20 mg PO HS@209904/16/20 04/28/20 Aspirin 81 mg PO DAILY@169904/28/20 04/28/20 Losartan Potassium 50 mg PO DAILY@79904/28/20 04/28/20 Na Phos,M-B/Na Phos,Di-Ba [Fleet 133 ml RECTAL DAILY PRN 04/28/20 04/28/20 Adult] Pantoprazole [Protonix] 40 mg PO DAILY@0600 04/28/20 04/28/20 Pramipexole [Mirapex] 1 mg PO BID@0800,1700 04/28/20 04/28/20 Rivaroxaban [Xarelto] 15 mg PO BID@0800,1700 04/28/20 04/28/20 Sennosides-Docusate Sodium 1 tab PO BID@0800,1700 04/28/20 04/28/20 [Senokot-S] Tamsulosin [Flomax] 0.4 mg PO BID@0800,1700 04/28/20 04/28/20 amLODIPine [Norvasc] 2.5 mg PO BID@0800,1700 04/28/20 04/28/20 bisacodyL [Dulcolax] 10 mg RECTAL Q24H PRN 04/28/20 04/28/20 levETIRAcetam [Keppra] 500 mg PO DAILY@0800 04/28/20 04/28/20 levETIRAcetam [Keppra] 750 mg PO DAILY@1700 04/28/20 04/28/20 levoFLOXacin 500 mg PO DAILY@2130 04/28/20 04/28/20 methocarbamoL [Robaxin] 750 mg PO TID PRN 04/28/20 04/28/20 Previous Rx's Medication Instructions Recorded Buta/APAP/Caf/Cod [id number] 1 - 2 cap PO Q4H PRN #18 cap MDD 4 04/18/20 [Fioricet w/Cod 37-314-73-30MG] caps HYDROcodone/APAP 10-325MG [Hopkins 1 tab PO Q5H PRN #12 tab 04/18/20 10-325] Magnesium Hydroxide [Milk of 2,400 mg PO DAILY PRN ml 04/18/20 Magnesia Concentrate] Allergies Allergy/AdvReac Type Severity Reaction Status Date / Time metoclopramide [From Reglan] AdvReac SHAKES Verified 04/28/20 15:51 oxycodone HCl AdvReac Nausea & Verified 04/28/20 15:51 [From OxyContin] Vomiting Review of Systems ROS Statement: Those systems with pertinent positive or pertinent negative responses have been documented in the HPI. ROS Other: All systems not noted in ROS Statement are negative. 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, multiple TIAs, parkinson's disease, neuralgia, neuropathy bilateral hands, legs and feet, thoracic spondylosis, prostrate cancer with surgery/chemo and radiation, UTIs, kidney stones, L eye glaucoma, PVD/bilateral lower extremity edema, caratid stenosis, aemia, bronchitis, lower GI bleed, ANDREA with CPap History of Any Multi-Drug Resistant Organisms: None Reported Past Surgical History: Adenoidectomy, Back Surgery, Heart Catheterization With Stent, Hernia Repair, Joint Replacement, Orthopedic Surgery, Prostate Surgery, Tonsillectomy Additional Past Surgical History / Comment(s): PCI with stent in 2012, prostate biopsies, laser vaporization of prostrate, bilateral inquinal hernia repairs, EGD/colonoscopy, supraorbital percutaneous nerve stimulator trial, epidural injections, low back surgery, R foot hammer toe surgery, bilateral total knee replacements, bilateral cataract removals/lens implants, hemorrhoidectomy, R side of head vein biopsy, left hip arthroplasty 2 weeks ago Past Anesthesia/Blood Transfusion Reactions: No Reported Reaction Additional Past Anesthesia/Blood Transfusion Reaction / Comment(s): Pt has received blood in past without reaction. Date of Last Stent Placement:: 2012 Past Psychological History: No Psychological Hx Reported Smoking Status: Never smoker Past Alcohol Use History: None Reported Past Drug Use History: None Reported - Past Family History Brother(s) Family Medical History: No Reported History Additional Family Medical History / Comment(s): Patient has 3 brothers with no major medical problems. Sister(s) Family Medical History: Hypertension Additional Family Medical History / Comment(s): Patient has 3 sisters that are all alive. 2 have high blood pressure. One has diabetes and stroke and is 81 years old. And all have history of tremors. Son(s) Family Medical History: No Reported History Additional Family Medical History / Comment(s): Patient has 3 sons and one daughter with no major medical problems. Father Family Medical History: Myocardial Infarction (AL) Additional Family Medical History / Comment(s): Father at age 73 with history of Parkinson's disease, bowel cancer, bone cancer. Mother Family Medical History: No Reported History, Myocardial Infarction (AL) Additional Family Medical History / Comment(s): Mother at age 85 with history of hypertension and dementia. General Exam Limitations: no limitations Course Vital Signs 04/28/20 14:45 Temperature 98 F Pulse Rate 66 Respiratory 18 Rate Blood Pressure 118/71 O2 Sat by Pulse 97 Oximetry Medical Decision Making - Lab Data Result diagrams: 04/28/20 15:51 04/28/20 15:51 Lab Results 04/28/20 04/28/20 04/28/20 Range/Units 15:22 15:51 15:51 WBC 7.4 (3.8-10.6) k/uL RBC 3.15 L (4.30-5.90) m/uL Hgb 9.0 L (13.0-17.5) gm/dL Hct 27.7 L (39.0-53.0) % MCV 87.9 (80.0-100.0) fL MCH 28.6 (25.0-35.0) pg MCHC 32.6 (31.0-37.0) g/dL RDW 14.6 (11.5-15.5) % Plt Count 335 (150-450) k/uL Neutrophils % 81 % Lymphocytes % 10 % Monocytes % 6 % Eosinophils % 2 % Basophils % 1 % Neutrophils # 6.1 (1.3-7.7) k/uL Lymphocytes # 0.7 L (1.0-4.8) k/uL Monocytes # 0.4 (0-1.0) k/uL Eosinophils # 0.2 (0-0.7) k/uL Basophils # 0.0 (0-0.2) k/uL PT 13.1 H (9.0-12.0) sec INR 1.3 H (<1.2) APTT 33.4 H (22.0-30.0) sec Sodium (137-145) mmol/L Potassium (3.5-5.1) mmol/L Chloride (98-107) mmol/L Carbon Dioxide (22-30) mmol/L Anion Gap mmol/L BUN (9-20) mg/dL Creatinine (0.66-1.25) mg/dL Est GFR (CKD-EPI)AfAm (>60 ml/min/1.73 sqM) Est GFR (CKD-EPI)NonAf (>60 ml/min/1.73 sqM) Glucose (74-99) mg/dL Plasma Lactic Acid Rufino 1.8 (0.7-2.0) mmol/L Calcium (8.4-10.2) mg/dL Ionized Calcium Sowmya (4.5-5.3) mg/dL Magnesium (1.6-2.3) mg/dL Total Bilirubin (0.2-1.3) mg/dL AST (17-59) U/L ALT (4-49) U/L Alkaline Phosphatase (38-126) U/L Ammonia <9 (<30) umol/L Total Protein (6.3-8.2) g/dL Albumin (3.5-5.0) g/dL 04/28/20 Range/Units 15:51 WBC (3.8-10.6) k/uL RBC (4.30-5.90) m/uL Hgb (13.0-17.5) gm/dL Hct (39.0-53.0) % MCV (80.0-100.0) fL MCH (25.0-35.0) pg MCHC (31.0-37.0) g/dL RDW (11.5-15.5) % Plt Count (150-450) k/uL Neutrophils % % Lymphocytes % % Monocytes % % Eosinophils % % Basophils % % Neutrophils # (1.3-7.7) k/uL Lymphocytes # (1.0-4.8) k/uL Monocytes # (0-1.0) k/uL Eosinophils # (0-0.7) k/uL Basophils # (0-0.2) k/uL PT (9.0-12.0) sec INR (<1.2) APTT (22.0-30.0) sec Sodium 122 L (137-145) mmol/L Potassium 4.2 (3.5-5.1) mmol/L Chloride 89 L (98-107) mmol/L Carbon Dioxide 24 (22-30) mmol/L Anion Gap 9 mmol/L BUN 12 (9-20) mg/dL Creatinine 0.71 (0.66-1.25) mg/dL Est GFR (CKD-EPI)AfAm >90 (>60 ml/min/1.73 sqM) Est GFR (CKD-EPI)NonAf 87 (>60 ml/min/1.73 sqM) Glucose 116 H (74-99) mg/dL Plasma Lactic Acid Rufino (0.7-2.0) mmol/L Calcium 8.8 (8.4-10.2) mg/dL Ionized Calcium Sowmya 4.6 (4.5-5.3) mg/dL Magnesium 1.7 (1.6-2.3) mg/dL Total Bilirubin 0.7 (0.2-1.3) mg/dL AST 31 (17-59) U/L ALT 14 (4-49) U/L Alkaline Phosphatase 86 (38-126) U/L Ammonia (<30) umol/L Total Protein 5.8 L (6.3-8.2) g/dL Albumin 3.3 L (3.5-5.0) g/dL Disposition Clinical Impression: Hyponatremia Disposition: ADMITTED IP TO THIS [facility] Condition: Critical Referrals: Louis Lawson MD [Primary Care Provider] - 1-2 days Decision Time: 16:44
[2020-04-28 16:14] LABS: Lactic Acid, Venous 1.8 mmol/L (0.7-2.0)
[2020-04-28 16:16] LABS: Ionized Calcium 4.6 mg/dL (4.5-5.3)
[2020-04-28 16:17] LABS: Basophils % (A) 1 %; Eosinophils # (A) 0.2 k/uL (0-0.7); Eosinophils % (A) 2 %; HCT 27.7 % (39.0-53.0); Lymphocytes # (A) 0.7 k/uL (1.0-4.8); Lymphocytes % (A) 10 %; MCH 28.6 pg (25.0-35.0); MCHC 32.6 g/dL (31.0-37.0); MCV 87.9 fL (80.0-100.0); Mean Platelet Volume 6.4; Monocytes # (A) 0.4 k/uL (0-1.0); Monocytes % (A) 6 %; Neutrophils # (A) 6.1 k/uL (1.3-7.7); Neutrophils % (A) 81 %; Platelet Count 335 k/uL (150-450); RBC 3.15 m/uL (4.30-5.90); RDW 14.6 % (11.5-15.5); WBC 7.4 k/uL (3.8-10.6)
[2020-04-28 16:21] LABS: INR 1.3 (<1.2); Partial Thromboplastin Time 33.4 sec (22.0-30.0); Prothrombin Time 13.1 sec (9.0-12.0)
[2020-04-28 16:25] LABS: ALT 14 U/L (4-49); AST 31 U/L (17-59); African American GFR (CKD) >90 (>60 ml/min/1.73 sqM); Albumin 3.3 g/dL (3.5-5.0); Alkaline Phosphatase 86 U/L (38-126); Anion Gap 9 mmol/L; Blood Urea Nitrogen 12 mg/dL (9-20); Calcium 8.8 mg/dL (8.4-10.2); Carbon Dioxide 24 mmol/L (22-30); Chloride 89 mmol/L (98-107); Glucose 116 mg/dL (74-99); Magnesium 1.7 mg/dL (1.6-2.3); Non-African American GFR(CKD) 87 (>60 ml/min/1.73 sqM); Potassium 4.2 mmol/L (3.5-5.1); Sodium 122 mmol/L (137-145); Total Bilirubin 0.7 mg/dL (0.2-1.3); Total Protein 5.8 g/dL (6.3-8.2)
--- NOTE | 2020-04-28 16:31 | CT ---
EXAMINATION TYPE: CT brain wo con DATE OF EXAM: 04/28/2020 COMPARISON: 06/20/2019 HISTORY: mental status changes CT DLP: 1260.4 mGycm Automated exposure control for dose reduction was used. There is some cerebral cortical atrophy. There is hypodensity in the periventricular white matter. Th ere is no mass effect nor midline shift. There is no sign of intracranial hemorrhage. Calvarium is in tact. Skull base is intact. IMPRESSION: Cerebral atrophy and chronic small vessel ischemia. No acute intracranial abnormality. No change.
[2020-04-28] MEDS ORDERED: SODIUM CHLORIDE 0.9% 1,000 ML IV STA (16:34)
[2020-04-28] MEDS ORDERED: ACETAMINOPHEN TAB 325 MG TAB PO PRN (16:41)
[2020-04-28] MEDS ORDERED: NALOXONE 0.4 MG/ML 1 ML VIAL IV PRN (16:41)
[2020-04-28 17:24] LABS: Appearance,Urine Cloudy (Clear); Bilirubin,Urine Negative (Negative); Blood,Urine Large (Negative); Color,Urine Yellow; Glucose,Urine (UA) Negative (Negative); Hyaline Casts,Urine 38 /lpf (0-2); Ketones,Urine Negative (Negative); Leukocyte Esterase,Urine Moderate (Negative); Mucus,Urine Rare /hpf; Nitrite,Urine Negative (Negative); Protein,Urine 1+ (Negative); RBC,Urine >182 /hpf (0-5); Specific Gravity,Urine 1.015 (1.001-1.035); Squamous Epithelial Cell,Urine <1 /hpf (0-4); Urobilinogen,Urine <2.0 mg/dL (<2.0); WBC,Urine 45 /hpf (0-5)
[2020-04-28] MEDS: HYDROcodone/APAP 10-325MG 1 EACH TAB PO PRN (20:39)
[2020-04-28] MEDS: MONTELUKAST 10 MG TAB PO SCH (20:39)
[2020-04-28] MEDS: ATORVASTATIN 40 MG TAB PO SCH (20:39)
[2020-04-28] MEDS: LATANOPROST 0.005% OPHTH DROPS 2.5 ML BTL BOTH EYES SCH (20:40)
[2020-04-28] MEDS: SODIUM CHLORIDE 0.9% 1,000 ML IV SCH (20:40)
[2020-04-28] MEDS ORDERED: LEVOFLOXACIN 500 MG TAB PO SCH (21:30)
[2020-04-28] MEDS ORDERED: FUROSEMIDE 10 MG/ML 2 ML VIAL IV ONE (22:49)
[2020-04-29 06:41] LABS: Basophils % (A) 0 %; Eosinophils # (A) 0.1 k/uL (0-0.7); Eosinophils % (A) 3 %; HCT 24.8 % (39.0-53.0); HGB 8.3 gm/dL (13.0-17.5); Lymphocytes # (A) 0.8 k/uL (1.0-4.8); Lymphocytes % (A) 19 %; MCH 29.3 pg (25.0-35.0); MCHC 33.3 g/dL (31.0-37.0); Mean Platelet Volume 6.7; Monocytes # (A) 0.3 k/uL (0-1.0); Monocytes % (A) 8 %; Neutrophils # (A) 2.7 k/uL (1.3-7.7); Neutrophils % (A) 68 %; Platelet Count 310 k/uL (150-450); RBC 2.82 m/uL (4.30-5.90)
[2020-04-29] MEDS: PANTOPRAZOLE 40 MG TABLET PO SCH (06:47)
--- NOTE | 2020-04-29 08:26 | P.CNNES ---
History of Present Illness Consult date: 04/29/20 Requesting physician: David Lopez Reason for Consult: possible seizure History of Present Illness: This is an 84-year-old left-handed gentleman with medical history of TIA's, Parikinson disease, seizure/syncopal episodes, left facial droop in 2004 prostate cancer, Obstructive sleep apnea, DVT and recent left hip replacement (3 weeks ago) who was transferred from [facility] to rehab facility for concern of seizure. Per medical records, the nursing facility was reached out and they reported that about 2 PM on 04/28/2020 patient came back from physical therapy. He requested pain medication. Shortly after patient became unresponsive and flaccid for about 25-30 minutes. Then the patient was responsive to painful stimuli. There is no witnessed the tonic-clonic activity. Per medical record the patient had numerous events similar to this in the last 1 week (about 34 episodes). On one of the episodes the patient the did have tonic-clonic activity. Otherwise patient is unresponsive for 30-40 seconds. Then he returns back to baseline immediately. The who received some reports from the nursing facility that he was sent here for prolonged altered mental status. She did not witness the event or the events that happened this week. In the ED the patient was still confused and slow to respond per he is more interactive. Per patient he denies any warning sign with these episodes. He denies being told any jerking, foaming around the mouth, bladder or bowel incontinence or any tongue soreness after the episodes. The episode happen either while laying or being on his feet. Patient is on Keppra 500 mg in the morning and 750 mg and at night. He doesn't know if his seiuzre medication were missed during his stay at rehab. He is back to baseline. Patient is on aspirin 81 mg, Lipitor 40 mg, Plavix 75 mg. Patient patient is on Xarelto 50 mg twice a day. Patient workup in the hospital consisted of CT of the head which was done on 04/28/2020 which was reported as cerebral atrophy and chronic small vessel ischemia. No acute intracranial abnormality. No change compared to that 2018. EKG was reported as normal sinus rhythm, ventricle rate of 67. And minimal voltage criteria for left ventricle hypertrophy, may be normal variant. On presentation the patient's vitals was the blood pressure was 118/71, the respiratory was 18, temperature was 98 Fahrenheit orally, pulse ox 97 at room air. blood cells 7.4. Sodium is 122 the repeat his sodium was 121. Patient sodium on 04/22/20 was in 133. Patient's sodium has been in the range in this year 2019 in the 130s mid to low was 130s. She does have episodes of hyponatremia in the past The glucose serum was 116 left acid of the vein was 1.8 the calcium was 8.8 ionized calcium is 4.6 Ammonia is less than 9. Urine analysis: 04/28/20 color was yellow appears cloudy the leukocyte esterase was moderate the urine 1 blood cell is 45 Of note: Patient was seen by our neurology team at [facility] on that 06/20/2019 for stroke alert for aphasia. He underwent cardiac cath and neurology was consulted for stroke. And per the nursing staff the patient is not on there is not as responsive MRI the brain did not show any acute ischemia. Was felt possibly was a contrast-induced encephalopathic the during cardiac cath. Seizure cannot be excluded but is lower on the differential. It is mentioned in the neurology note in 2019 that the patient's had episodes of staring off for couple minutes and it was in 2017. No seizure-like activity. And happened in the setting of low blood pressure. The patient was started on Keppra at that time. Patient had multiple EEGs in our system and the last EEG was 06/21/2019 and was reported as a significant limited study and abnormal EEG. And the findings is indicative of moderate the diffuse cerebral dysfunction. There is no definite seizures were recorded. No epileptiform activity was present. Patient also had an EEG in 2017 as well as 2016 which was reported as normal. Per patient he has history of Parkinson's disease, having resting tremor of bilateral upper extremities. He said he had work-up at [facility]. He currently is not following up with a neurologist. Review of Systems Review of system: The 12 point system was reviewed and apparent positive and negative per HPI. 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, multiple TIAs, parkinson's disease, neuralgia, neuropathy bilateral hands, legs and feet, thoracic spondylosis, prostrate cancer with surgery/chemo and radiation, UTIs, kidney stones, L eye glaucoma, PVD/bilateral lower extremity edema, caratid stenosis, aemia, bronchitis, lower GI bleed, ANDREA with CPap History of Any Multi-Drug Resistant Organisms: None Reported Past Surgical History: Adenoidectomy, Back Surgery, Heart Catheterization With Stent, Hernia Repair, Joint Replacement, Orthopedic Surgery, Prostate Surgery, Tonsillectomy Additional Past Surgical History / Comment(s): PCI with stent in 2012, prostate biopsies, laser vaporization of prostrate, bilateral inquinal hernia repairs, EGD/colonoscopy, supraorbital percutaneous nerve stimulator trial, epidural injections, low back surgery, R foot hammer toe surgery, bilateral total knee replacements, bilateral cataract removals/lens implants, hemorrhoidectomy, R side of head vein biopsy, left hip arthroplasty 2 weeks ago Past Anesthesia/Blood Transfusion Reactions: No Reported Reaction Additional Past Anesthesia/Blood Transfusion Reaction / Comment(s): Pt has received blood in past without reaction. Date of Last Stent Placement:: 2012 Past Psychological History: No Psychological Hx Reported Additional Psychological History / Comment(s): Pt resides with his spouse. He uses a walker to ambulate. Smoking Status: Never smoker Past Alcohol Use History: None Reported Past Drug Use History: None Reported - Past Family History Brother(s) Family Medical History: No Reported History Additional Family Medical History / Comment(s): Patient has 3 brothers with no major medical problems. Sister(s) Family Medical History: Hypertension Additional Family Medical History / Comment(s): Patient has 3 sisters that are all alive. 2 have high blood pressure. One has diabetes and stroke and is 81 years old. And all have history of tremors. Son(s) Family Medical History: No Reported History Additional Family Medical History / Comment(s): Patient has 3 sons and one daughter with no major medical problems. Father Family Medical History: Myocardial Infarction ([place]) Additional Family Medical History / Comment(s): Father at age 73 with history of Parkinson's disease, bowel cancer, bone cancer. Mother Family Medical History: No Reported History, Myocardial Infarction ([place]) Additional Family Medical History / Comment(s): Mother at age 85 with history of hypertension and dementia. Medications and Allergies Home Medications Medication Instructions Recorded Confirmed Type cloNIDine HCL [Catapres] 0.1 mg PO DAILY@169905/21/14 04/28/20 History Montelukast [Singulair] 10 mg PO HS@209909/19/15 04/28/20 History Cholecalciferol [Vitamin D3 (25 5,000 unit PO DAILY@169903/05/17 04/28/20 History Mcg = 1000 Iu)] hydroCHLOROthiazide 25 mg PO DAILY@79902/07/18 04/28/20 History Ferrous Sulfate [Iron (65 MG 325 mg PO DAILY@169907/14/18 04/28/20 History Elemental)] Brimonidine Tartrate/Timolol 1 drop LEFT EYE BID@0800,169908/23/18 04/28/20 History [Combigan 0.2%-0.5% Eye Drops] carvediloL [Carvedilol] 25 mg PO BID@0800,169908/23/18 04/28/20 History Baclofen 10 mg PO TID PRN 04/16/20 04/28/20 History Clopidogrel [Plavix] 75 mg PO DAILY@79904/16/20 04/28/20 History Cyanocobalamin (Vitamin B-12) 2,500 mcg PO DAILY@79904/16/20 04/28/20 History [Vitamin B-12] Ezetimibe [Zetia] 10 mg PO DAILY@79904/16/20 04/28/20 History Latanoprost/Pf [Latanoprost 0.005% 1 drop BOTH EYES HS@209904/16/20 04/28/20 History Eye Drop] Rosuvastatin Calcium 20 mg PO HS@209904/16/20 04/28/20 History Buta/APAP/Caf/Cod 97-018-47-30 1 - 2 cap PO Q4H PRN #18 cap MDD 4 04/18/20 04/28/20 Rx [Fioricet w/Cod 27-289-66-30MG] caps HYDROcodone/APAP 10-325MG [Line [place] 1 tab PO Q5H PRN #12 tab 04/18/20 04/28/20 Rx 10-325] Magnesium Hydroxide [Milk of 2,400 mg PO DAILY PRN ml 04/18/20 04/28/20 Rx Magnesia Concentrate] Aspirin 81 mg PO DAILY@1700 04/28/20 04/28/20 History Losartan Potassium 50 mg PO DAILY@0804/28/20 04/28/20 History Na Phos,M-B/Na Phos,Di-Ba [Fleet 133 ml RECTAL DAILY PRN 04/28/20 04/28/20 History Adult] Pantoprazole [Protonix] 40 mg PO DAILY@0600 04/28/20 04/28/20 History Pramipexole [Mirapex] 1 mg PO BID@0800,1700 04/28/20 04/28/20 History Rivaroxaban [Xarelto] 15 mg PO BID@0800,1700 04/28/20 04/28/20 History Sennosides-Docusate Sodium 1 tab PO BID@0800,1700 04/28/20 04/28/20 History [Senokot-S] Tamsulosin [Flomax] 0.4 mg PO BID@0800,1700 04/28/20 04/28/20 History amLODIPine [Norvasc] 2.5 mg PO BID@0800,1700 04/28/20 04/28/20 History bisacodyL [Dulcolax] 10 mg RECTAL Q24H PRN 04/28/20 04/28/20 History levETIRAcetam [Keppra] 500 mg PO DAILY@0800 04/28/20 04/28/20 History levETIRAcetam [Keppra] 750 mg PO DAILY@169904/28/20 04/28/20 History levoFLOXacin 500 mg PO DAILY@2130 04/28/20 04/28/20 History methocarbamoL [Robaxin] 750 mg PO TID PRN 04/28/20 04/28/20 History Allergies Allergy/AdvReac Type Severity Reaction Status Date / Time metoclopramide [From Reglan] AdvReac SHAKES Verified 04/28/20 15:51 oxycodone HCl AdvReac Nausea & Verified 04/28/20 15:51 [From OxyContin] Vomiting Physical Examination - Vital Signs Vital Signs: Vital Signs Temp Pulse Pulse Resp BP BP Pulse Ox 04/29/20 04:00 98.4 F 80 17 122/74 95 04/28/20 23:24 97.9 F 88 18 102/63 98 04/28/20 20:00 98.0 F 86 17 121/74 97 04/28/20 18:36 98.1 F 79 18 135/81 96 04/28/20 17:30 73 15 128/74 97 04/28/20 17:00 73 25 H 122/88 96 04/28/20 16:30 68 22 133/83 97 04/28/20 16:00 129/76 97 04/28/20 15:30 132/76 04/28/20 15:00 118/71 97 04/28/20 14:48 95 04/28/20 14:45 98 F 66 18 118/71 97 Intake and Output 04/28/20 04/29/20 04/29/20 22:59 06:59 14:59 Intake Total 1200 Output Total 600 1700 Balance -600 -500 Intake: Intake, IV Titration 1200 Amount Sodium Chloride 0.9% 1, 1200 000 ml @ 75 mls/hr IV . [id number] [facility] Rx#:[id number] Output: Urine 600 1700 Other: Voiding Method Indwelling Catheter Indwelling Catheter Weight 95.935 kg 97 kg GENERAL: The patient is sitting on chair and is not in acute distress. CHEST: The heart rate is regular rate rhythm. No murmurs to auscultation. LUNG: Clear to auscultation bilaterally no wheezing noted throughout. Not labored breathing. ABDOMEN/GI: Bowel sounds present in all 4 quadrants. No tenderness to palpation throughout. NEUROLOGICAL: Higher mental function: The patient is awake, alert, oriented to self, place and time. Patient is following commands. No aphasia and no neglect. Cranial nerves: The pupils are round, equal and reactive to light and accommodation. Visual leon are full to confrontation throughout. Extraocular movement is intact no nystagmus is noted. Facial sensation is normal to touch throughout. The facial strength is there is left nasolabial flattening. Hearing is normal bilaterally to hand rub. Tongue is midline and moved [id number] without any difficulty. No dysarthria is noted. Shoulder shrug is normal bilaterally. Motor: Gait is defered. The strength is 5 over 5 throughout. Normal tone and bulk. No resting tremor or cogwheel rigidity. Cerebellum: Normal finger to nose bilaterally.. Sensation: Sensation is normal to touch throughout. Reflexes (right/left): 1+ throughout except at ankles 0-1 bilaterally. Plantars are downgoing bilaterally. Results - Laboratory Findings CBC and BMP: 04/29/20 05:46 04/29/20 17:00 Abnormal Lab Findings: Abnormal Labs 04/28/20 04/28/20 04/28/20 15:51 15:51 15:51 RBC 3.15 L Hgb 9.0 L Hct 27.7 L Lymphocytes # 0.7 L PT 13.1 H INR 1.3 H APTT 33.4 H Sodium 122 L Chloride 89 L Glucose 116 H Osmolality Total Protein 5.8 L Albumin 3.3 L Urine Protein Urine Blood Ur Leukocyte Esterase Urine RBC Urine WBC Hyaline Casts Urine Mucus 04/28/20 04/28/20 04/28/20 15:51 16:56 21:59 RBC Hgb Hct Lymphocytes # PT INR APTT Sodium 121 L Chloride Glucose Osmolality 256 L Total Protein Albumin Urine Protein 1+ H Urine Blood Large H Ur Leukocyte Esterase Moderate H Urine RBC >182 H Urine WBC 45 H Hyaline Casts 38 H Urine Mucus Rare H 04/29/20 05:46 RBC 2.82 L Hgb 8.3 L Hct 24.8 L Lymphocytes # 0.8 L PT INR APTT Sodium Chloride Glucose Osmolality Total Protein Albumin Urine Protein Urine Blood Ur Leukocyte Esterase Urine RBC Urine WBC Hyaline Casts Urine Mucus Assessment and Plan Assessment: Mr. Rivera is a 84-year-old left-handed gentleman with medical history of TIA's, Parikinson disease, seizure/syncopal episodes, left facial droop in 2004 prostate cancer, Obstructive sleep apnea, DVT and recent left hip replacement (3 weeks ago) who was transferred from [facility] to rehab facility for concern of seizure. Patient has been having of numerous event of unresponsiveness in past one week. With one episode he did have tonic-clonic per medical record. On presentation patient has UTI and hyponatremia. He is back to baseline. Toxic-metabolic Encephalopathy due to hyponatremia and underlying UTI Episodes of passing out: Cannot rule out Seizure which are provoked by UTI and hyponatremia. Also rule out cardiology etiology. Hyponatremia due to possible Thiazide use UTI Hx of TIA Hx of Parkinson's disease DVT Plan: -Patient workup in the hospital consisted of CT of the head which was done on 04/28/2020 which was reported as cerebral atrophy and chronic small vessel ischemia. No acute intracranial abnormality. No change compared to that 06/20/2019. -On presentation the patient's blood cells 7.4. Sodium is 122 the repeat his sodium was 121. The glucose serum was 116 left acid of the vein was 1.8 the calcium was 8.8 ionized calcium is 4.6 Ammonia is less than 9. U/A on 04/28/20: color was yellow appears cloudy the leukocyte esterase was moderate the urine 1 blood cell is 45 EEG is pending. Patient is on Keppra 500 mg in the morning and 750 mg at night. We will not change the medication. Regarding the patient's hyponatremia recommend correcting it slowly and we'll defer the management to the primary team.. For urinary tract infection patient is on levofloxacin which can induce seizure from electrolyte imbalance. Recommend changing antibiotic to a different one. We'll defer the management to the primary team. Recommend ruling out cardiac etiology to him passing out. If cardiac is ruled out, recommend outpatient fdc EEG to detect these episodes. Regarding the patient's history of Parkinson's disease we'll defer the management to the patient's neurologist as an outpatient. Also patient was notified he need to see neurologist for his ?seizure. For the consult Dat Pedroza MD Neuro-hospitalist Time with Patient: Greater than 30
[2020-04-29] MEDS: CLOPIDOGREL 75 MG TAB PO SCH (09:31)
[2020-04-29] MEDS: CYANOCOBALAMIN 500 MCG TAB PO SCH (09:31)
[2020-04-29] MEDS: levETIRAcetam 500 MG TAB PO SCH (09:32)
[2020-04-29] MEDS: EZETIMIBE 10 MG TAB PO SCH (09:32)
[2020-04-29] MEDS: RIVAROXABAN 15 MG TAB PO SCH ×2 (09:32→16:11)
[2020-04-29] MEDS: TAMSULOSIN 0.4 MG CAP.ER.24H PO SCH ×2 (09:32→16:11)
[2020-04-29] MEDS: carvediloL 12.5 MG TAB PO SCH ×2 (09:32→16:11)
[2020-04-29] MEDS: LOSARTAN 50 MG TAB PO SCH (09:32)
[2020-04-29] MEDS: SENNOSIDES-DOCUSATE SODIUM 1 EACH TAB PO SCH ×2 (09:32→16:11)
[2020-04-29] MEDS: TIMOLOL 0.5% OPHTH DROPS 5 ML BTL LEFT EYE SCH ×2 (09:33→16:12)
[2020-04-29] MEDS: BRIMONIDINE TARTRATE 0.2% DROPS 5 ML BTL LEFT EYE SCH ×2 (09:33→16:11)
[2020-04-29 10:20] LABS: African American GFR (CKD) >90 (>60 ml/min/1.73 sqM); Anion Gap 6 mmol/L; Blood Urea Nitrogen 10 mg/dL (9-20); Calcium 8.3 mg/dL (8.4-10.2); Carbon Dioxide 24 mmol/L (22-30); Chloride 93 mmol/L (98-107); Glucose 94 mg/dL (74-99); Non-African American GFR(CKD) >90 (>60 ml/min/1.73 sqM); Potassium 3.8 mmol/L (3.5-5.1); Sodium 123 mmol/L (137-145)
[2020-04-29] MEDS: SODIUM CHLORIDE 0.9% 1,000 ML IV SCH (10:29)
[2020-04-29] MEDS ORDERED: FUROSEMIDE 10 MG/ML 2 ML VIAL IV ONE (11:04)
--- NOTE | 2020-04-29 11:09 | P.HPIM ---
History of Present Illness H&P Date: 04/29/20 History of Present Illness This is an 84-year-old male patient of Dr. Lawson with past medical history of coronary artery disease, Parkinson's disease, recurrent headaches, severe PAD, generalized osteoarthritis, obstructive sleep apnea on CPAP. Patient recently underwent a total left hip arthroplasty with Dr. Horvath at [facility] and was subsequently admitted to [facility] on April 16 due to generalized debility and shortness of breath, found to have bilateral pulmonary embolism and large DVT in the right leg. Patient was discharge to [facility] for subacute rehab and was doing well over the weekend there was concern for seizure activity. Over the past week patient has had multiple episodes of similar events. He does have a history of seizure disorder the patient is having unresponsive episodes for approximately 25-30 minutes and also had episode yesterday afternoon of a tonic-clonic type activity patient apparently had 34 episodes over the past week and for most of them he becomes unresponsive lasting for about 30-40 seconds and then is able to return to baseline. Patient was brought into [facility] emergency center for evaluation. EKG normal sinus rhythm with no acute ST-T wave changes. Potassium 4.2, chloride 89, CO2 24, BUN 12 and creatinine 0.71, blood sugar 116. Lactic acid 1.8, ammonia level less than 9. Liver function tests normal. Patient was started on IV fluids, hydrochlorothiazide on hold. Patient admitted to the cardiac stepdown unit and consults requested with neurology and nephrology and consult added for urology regarding urinary retention and chronic Olivo catheter. Review of Systems Constitutional: No fever, no chills, no night sweats. No weight change. No weakness, fatigue or lethargy. No daytime sleepiness. EENT: No headache. No blurred vision or double vision, no loss of vision. No loss of Hearing, no ringing in the ears, no dizziness. No nasal drainage or congestion. No epistaxis. No sore throat. Lungs: No shortness of breath, cough, no sputum production. No wheezing. Cardiovascular: No chest pain, no lower extremity edema. No palpitations. No paroxysmal nocturnal dyspnea. No orthopnea. No lightheadedness or dizziness. Reports syncopal episodes. Abdominal: No abdominal pain. No nausea, vomiting. No diarrhea. No con stipation. No bloody or tarry stools.. No loss of appetite. Genitourinary: No dysuria, increased frequency, urgency. Reports urinary retention. Musculoskeletal: No myalgias. No muscle weakness, reports gait dysfunction, no frequent falls. No back pain. No neck pain. Integumentary: No wounds, no lesions. No rash or pruritus. No unusual bruising. No change in hair or nails. Neurologic: No aphasia. No facial droop. No change in mentation. No head injury. No headache. No paralysis. No paresthesia. Psychiatric: No depression. No anxiety. No mood swings. Endocrine: No abnormal blood sugars. No weight change. No excessive sweating or thirst. No cold intolerance. Physical Examination Gen: This is an 84-year-old male. He is resting in bed and appears comfortable. HEENT: Head is atraumatic, normocephalic. Pupils equal, round. Sclerae is anicteric. NECK: Supple. No JVD. No lymphadenopathy. No thyromegaly. LUNGS: Clear to auscultation. No wheezes or rhonchi. No intercostal retractions. HEART: Regular rate and rhythm. Systolic ejection murmur. ABDOMEN: Soft. Bowel sounds are present. No masses. No tenderness. Olivo catheter draining clear liane urine. EXTREMITIES: No pedal edema. No calf tenderness. NEUROLOGICAL: Patient is awake, alert and oriented x3. Cranial nerves 2 through 12 are grossly intact. Assessment and Plan 1. Seizure/syncopal episodes. Neurology consult appreciated. CAT scan of the head did not show any acute intracranial abnormality. EEG is pending. Patient is currently on Keppra 500 mg in the morning and 750 mg at night which Dr. Bran Pedroza recommended continuing this dosing. 2. Hyponatremia most likely secondary to hydrochlorothiazide. Hydrochlorothiazide on hold, IV fluids at 0.9 normal saline at 75 mL per hour, nephrology consult. 3. Acute catheter associated urinary tract infection. Patient has been on Levaquin. It was exchanged to ceftriaxone from neurology recommendations to avoid fluoroquinolones. 4. Urinary retention. Urology consult. Patient has a chronic Olivo catheter in place. 5. Bilateral pulmonary embolism originating from DVT right leg. Continue Xarelto. 6. Recent history of left total knee arthroplasty. PT and OT. 7. Hypertension. Continue Coreg 25 mg twice daily, losartan 50 mg daily. Hold hydrochlorothiazide. 8. Hyperlipidemia. Continue Lipitor 40 mg daily, Zetia 10 mg daily. 9. History of CVA. Continue Plavix 75 mg daily, aspirin 81 mg daily, Lipitor 40 mg daily. 10. Coronary artery disease status post angioplasty and stent placement. Continue Plavix, aspirin, Lipitor. 11. Benign prostatic hypertrophy with urinary retention requiring straight cath and subsequent Olivo catheter placement on last admission. 12. History of seizure disorder. Patient normally follows with Dr. Byrd. 13. Restless leg syndrome. Continue Mirapex 1 mg twice daily. 14. GI prophylaxis. Protonix. 15. DVT prophylaxis. Xarelto. 16. COVID-19 testing. CODE STATUS: Full code Patient will be admitted to the hospital for a minimum of 2 night stay. Discharge plan: Most likely return to [facility] to complete subacute rehab. Impression and plan of care have been directed as dictated by the signing physician. Suly Gallo nurse practitioner acting as scribe for signing physician. Past Medical History Past Medical History: Coronary Artery Disease (CAD), Cancer, Chest Pain / A ngina, CVA/TIA, Eye Disorder, GERD/Reflux, GI Bleed, Hyperlipidemia, Hypertension, Neurologic Disorder, Osteoarthritis (OA), Prostate Disorder, Sleep Apnea/CPAP/BIPAP, Syncope, Vascular Disorder Additional Past Medical History / Comment(s): 2004 CVA with slight L droop of mo uth, multiple TIAs, parkinson's disease, neuralgia, neuropathy bilateral hands, legs and feet, thoracic spondylosis, prostrate cancer with surgery/chemo and radiation, UTIs, kidney stones, L eye glaucoma, PVD/bilateral lower extremity edema, caratid stenosis, aemia, bronchitis, lower GI bleed, ANDREA with CPap History of Any Multi-Drug Resistant Organisms: None Reported Past Surgical History: Adenoidectomy, Back Surgery, Heart Catheterization With S tent, Hernia Repair, Joint Replacement, Orthopedic Surgery, Prostate Surgery, Tonsillectomy Additional Past Surgical History / Comment(s): PCI with stent in 2012, prostate biopsies, laser vaporization of prostrate, bilateral inquinal hernia repairs, EGD/colonoscopy, supraorbital percutaneous nerve stimulator trial, epidural injections, low back surgery, R foot hammer toe surgery, bilateral total knee replacements, bilateral cataract removals/lens implants, hemorrhoidectomy, R side of head vein biopsy, left hip arthroplasty 2 weeks ago Past Anesthesia/Blood Transfusion Reactions: No Reported Reaction Additional Past Anesthesia/Blood Transfusion Reaction / Comment(s): Pt has received blood in past without reaction. Date of Last Stent Placement:: 2012 Past Psychological History: No Psychological Hx Reported Additional Psychological History / Comment(s): Pt resides with his spouse. He uses a walker to ambulate. Smoking Status: Never smoker Past Alcohol Use History: None Reported Past Drug Use History: None Reported - Past Family History Brother(s) Family Medical History: No Reported History Additional Family Medical History / Comment(s): Patient has 3 brothers with no major medical problems. Sister(s) Family Medical History: Hypertension Additional Family Medical History / Comment(s): Patient has 3 sisters that are all alive. 2 have high blood pressure. One has diabetes and stroke and is 81 years old. And all have history of tremors. Son(s) Family Medical History: No Reported History Additional Family Medical History / Comment(s): Patient has 3 sons and one daughter with no major medical problems. Father Family Medical History: Myocardial Infarction ([place]) Additional Family Medical History / Comment(s): Father at age 73 with history of Parkinson's disease, bowel cancer, bone cancer. Mother Family Medical History: No Reported History, Myocardial Infarction ([place]) Additional Family Medical History / Comment(s): Mother at age 85 with history of hypertension and dementia. Medications and Allergies Home Medications Medication Instructions Recorded Confirmed Type cloNIDine HCL [Catapres] 0.1 mg PO DAILY@1700 05/21/14 04/28/20 History Montelukast [Singulair] 10 mg PO HS@2100 09/19/15 04/28/20 History Cholecalciferol [Vitamin D3 (25 5,000 unit PO DAILY@1700 03/05/17 04/28/20 H istory Mcg = 1000 Iu)] hydroCHLOROthiazide 25 mg PO DAILY@0800 02/07/18 04/28/20 History Ferrous Sulfate [Iron (65 MG 325 mg PO DAILY@1700 07/14/18 04/28/20 History Elemental)] Brimonidine Tartrate/Timolol 1 drop LEFT EYE BID@0800,1700 08/23/18 04/28/20 History [Combigan 0.2%-0.5% Eye Drops] carvediloL [Carvedilol] 25 mg PO BID@0800,1700 08/23/18 04/28/20 History Baclofen 10 mg PO TID PRN 04/16/20 04/28/20 History Clopidogrel [Plavix] 75 mg PO DAILY@79904/16/20 04/28/20 History Cyanocobalamin (Vitamin B-12) 2,500 mcg PO DAILY@79904/16/20 04/28/20 History [Vitamin B-12] Ezetimibe [Zetia] 10 mg PO DAILY@79904/16/20 04/28/20 History Latanoprost/Pf [Latanoprost 0.005% 1 drop BOTH EYES HS@209904/16/20 04/28/20 History Eye Drop] Rosuvastatin Calcium 20 mg PO HS@209904/16/20 04/28/20 History Buta/APAP/Caf/Cod 81-679-43-30 1 - 2 cap PO Q4H PRN #18 cap MDD 4 04/18/20 04/28/20 Rx [Fioricet w/Cod 20-924-37-30MG] caps HYDROcodone/APAP 10-325MG [[place] 1 tab PO Q5H PRN #12 tab 04/18/20 04/28/20 Rx 10-325] Magnesium Hydroxide [Milk of 2,400 mg PO DAILY PRN ml 04/18/20 04/28/20 Rx Magnesia Concentrate] Aspirin 81 mg PO DAILY@1700 04/28/20 04/28/20 History Losartan Potassium 50 mg PO DAILY@79904/28/20 04/28/20 History Na Phos,M-B/Na Phos,Di-Ba [Fleet 133 ml RECTAL DAILY PRN 04/28/20 04/28/20 History Adult] Pantoprazole [Protonix] 40 mg PO DAILY@0604/28/20 04/28/20 History Pramipexole [Mirapex] 1 mg PO BID@0800,1700 04/28/20 04/28/20 History Rivaroxaban [Xarelto] 15 mg PO BID@0800,1700 04/28/20 04/28/20 History Sennosides-Docusate Sodium 1 tab PO BID@0800,1700 04/28/20 04/28/20 History [Senokot-S] Tamsulosin [Flomax] 0.4 mg PO BID@0800,1700 04/28/20 04/28/20 History amLODIPine [Norvasc] 2.5 mg PO BID@0800,1700 04/28/20 04/28/20 History bisacodyL [Dulcolax] 10 mg RECTAL Q24H PRN 04/28/20 04/28/20 History levETIRAcetam [Keppra] 500 mg PO DAILY@0800 04/28/20 04/28/20 History levETIRAcetam [Keppra] 750 mg PO DAILY@169904/28/20 04/28/20 History levoFLOXacin 500 mg PO DAILY@212904/28/20 04/28/20 History methocarbamoL [Robaxin] 750 mg PO TID PRN 04/28/20 04/28/20 History Allergies Allergy/AdvReac Type Severity Reaction Status Date / Time metoclopramide [From Reglan] AdvReac SHAKES Verified 04/28/20 15:51 oxycodone HCl AdvReac Nausea & Verified 04/28/20 15:51 [From OxyContin] Vomiting Physical Exam Vitals: Vital Signs Temp Pulse Pulse Resp BP BP Pulse Ox 04/29/20 04:00 98.4 F 80 17 122/74 95 04/28/20 23:24 97.9 F 88 18 102/63 98 04/28/20 20:00 98.0 F 86 17 121/74 97 04/28/20 18:36 98.1 F 79 18 135/81 96 04/28/20 17:30 73 15 128/74 97 04/28/20 17:00 73 25 H 122/88 96 04/28/20 16:30 68 22 133/83 97 04/28/20 16:00 129/76 97 04/28/20 15:30 132/76 04/28/20 15:00 118/71 97 04/28/20 14:48 95 04/28/20 14:45 98 F 66 18 118/71 97 Intake and Output 04/28/20 04/29/20 04/29/20 22:59 06:59 14:59 Intake Total 1200 Output Total 600 1700 Balance -600 -500 Intake: Intake, IV Titration 1200 Amount Sodium Chloride 0.9% 1, 1200 000 ml @ 75 mls/hr IV . [id number] [facility] Rx#:[id number] Output: Urine 600 1700 Other: Voiding Method Indwelling Catheter Indwelling Catheter Weight 95.935 kg 97 kg Results CBC & Chem 7: 04/29/20 05:46 04/29/20 05:46 Labs: Abnormal Lab Results - Last 24 Hours (Table) 04/28/20 04/28/20 04/28/20 Range/Units 15:51 15:51 15:51 RBC 3.15 L (4.30-5.90) m/uL Hgb 9.0 L (13.0-17.5) gm/dL Hct 27.7 L (39.0-53.0) % Lymphocytes # 0.7 L (1.0-4.8) k/uL PT 13.1 H (9.0-12.0) sec INR 1.3 H (<1.2) APTT 33.4 H (22.0-30.0) sec Sodium 122 L (137-145) mmol/L Chloride 89 L (98-107) mmol/L Glucose 116 H (74-99) mg/dL Osmolality (280-301) mosm/kg Total Protein 5.8 L (6.3-8.2) g/dL Albumin 3.3 L (3.5-5.0) g/dL Urine Protein (Negative) Urine Blood (Negative) Ur Leukocyte Esterase (Negative) Urine RBC (0-5) /hpf Urine WBC (0-5) /hpf Hyaline Casts (0-2) /lpf Urine Mucus (None) /hpf 04/28/20 04/28/20 04/28/20 Range/Units 15:51 16:56 21:59 RBC (4.30-5.90) m/uL Hgb (13.0-17.5) gm/dL Hct (39.0-53.0) % Lymphocytes # (1.0-4.8) k/uL PT (9.0-12.0) sec INR (<1.2) APTT (22.0-30.0) sec Sodium 121 L (137-145) mmol/L Chloride (98-107) mmol/L Glucose (74-99) mg/dL Osmolality 256 L (280-301) mosm/kg Total Protein (6.3-8.2) g/dL Albumin (3.5-5.0) g/dL Urine Protein 1+ H (Negative) Urine Blood Large H (Negative) Ur Leukocyte Esterase Moderate H (Negative) Urine RBC >182 H (0-5) /hpf Urine WBC 45 H (0-5) /hpf Hyaline Casts 38 H (0-2) /lpf Urine Mucus Rare H (None) /hpf 04/29/20 Range/Units 05:46 RBC 2.82 L (4.30-5.90) m/uL Hgb 8.3 L (13.0-17.5) gm/dL Hct 24.8 L (39.0-53.0) % Lymphocytes # 0.8 L (1.0-4.8) k/uL PT (9.0-12.0) sec INR (<1.2) APTT (22.0-30.0) sec Sodium (137-145) mmol/L Chloride (98-107) mmol/L Glucose (74-99) mg/dL Osmolality (280-301) mosm/kg Total Protein (6.3-8.2) g/dL Albumin (3.5-5.0) g/dL Urine Protein (Negative) Urine Blood (Negative) Ur Leukocyte Esterase (Negative) Urine RBC (0-5) /hpf Urine WBC (0-5) /hpf Hyaline Casts (0-2) /lpf Urine Mucus (None) /hpf Microbiology - Last 24 Hours (Table) 04/28/20 16:56 Urine Culture - Preliminary Urine,Voided Thrombosis Risk Factor Assmnt - DVT/VTE Prophylaxis DVT/VTE Prophylaxis: Pharmacologic Prophylaxis ordered - Choose All That Apply Any of the Below Risk Factors Present?: Yes Each Factor Represents 1 point: Abnormal pulmonary function (COPD) Other Risk Factors: Yes Each Risk Factor Represents 3 Points: Age 75 years or older, History of DVT/PE Thrombosis Risk Factor Assessment Total Risk Factor Score: 7 Thrombosis Risk Factor Assessment Level: High Risk
--- NOTE | 2020-04-29 11:11 | P.NPCON ---
History of Present Illness - Reason for Consult hyponatremia - History of Present Illness reason for consultation: Hyponatremia History of present illness: Patient is a 84-year-old male seen in renal consultation for hyponatremia. Patient presented from an accident acute facility due to altered mental status. Nurse at the [facility] care facility was concerned the patient had a seizure as he was unresponsive for a short period of time. However patient states he did not have a seizure. He does have history of seizures and is maintained on Keppra outpatient. He was also taking hydrochlorothiazide outpatient for blood pressure control. patient's sodium level was 122 on admission. He did receive 1 L bolus of normal saline and was started on normal saline at 75 mL an hour for maintenance fluids. Repeat sodium level was 121. He received a dose of IV Lasix last night with urine output of 1.7 L overnight. Sodium level this morning is 123. Patient is awake and alert. Denies chest pain or shortness of breath. No edema. No history of malignancy. Denies excessive fluid intake. No vomiting or diarrhea. Oral intake is good. denies any personal history of kidney disease. GFR at baseline. Vital signs are stable. General: The patient appeared well nourished and normally developed. HEENT: Head exam is unremarkable. Neck is without jugular venous distension. LUNGS: Lungs are clear to auscultation and percussion. Breath sounds decreased. HEART: Rate and Rhythm are regular. ABDOMEN: soft, nontender. EXTREMITITES: trace edema. 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, multiple TIAs, parkinson's disease, neuralgia, neuropathy bilateral hands, legs and feet, thoracic spondylosis, prostrate cancer with surgery/chemo and radiation, UTIs, kidney stones, L eye glaucoma, PVD/bilateral lower extremity edema, caratid stenosis, aemia, bronchitis, lower GI bleed, ADNREA with CPap History of Any Multi-Drug Resistant Organisms: None Reported Past Surgical History: Adenoidectomy, Back Surgery, Heart Catheterization With Stent, Hernia Repair, Joint Replacement, Orthopedic Surgery, Prostate Surgery, Tonsillectomy Additional Past Surgical History / Comment(s): PCI with stent in 2013, prostate biopsies, laser vaporization of prostrate, bilateral inquinal hernia repairs, EGD/colonoscopy, supraorbital percutaneous nerve stimulator trial, epidural injections, low back surgery, R foot hammer toe surgery, bilateral total knee replacements, bilateral cataract removals/lens implants, hemorrhoidectomy, R side of head vein biopsy, left hip arthroplasty 2 weeks ago Past Anesthesia/Blood Transfusion Reactions: No Reported Reaction Additional Past Anesthesia/Blood Transfusion Reaction / Comment(s): Pt has received blood in past without reaction. Date of Last Stent Placement:: 2012 Past Psychological History: No Psychological Hx Reported Additional Psychological History / Comment(s): Pt resides with his spouse. He uses a walker to ambulate. Smoking Status: Never smoker Past Alcohol Use History: None Reported Past Drug Use History: None Reported - Past Family History Brother(s) Family Medical History: No Reported History Additional Family Medical History / Comment(s): Patient has 3 brothers with no major medical problems. Sister(s) Family Medical History: Hypertension Additional Family Medical History / Comment(s): Patient has 3 sisters that are all alive. 2 have high blood pressure. One has diabetes and stroke and is 81 years old. And all have history of tremors. Son(s) Family Medical History: No Reported History Additional Family Medical History / Comment(s): Patient has 3 sons and one daughter with no major medical problems. Father Family Medical History: Myocardial Infarction ([place]) Additional Family Medical History / Comment(s): Father at age 73 with history of Parkinson's disease, bowel cancer, bone cancer. Mother Family Medical History: No Reported History, Myocardial Infarction ([place]) Additional Family Medical History / Comment(s): Mother at age 85 with history of hypertension and dementia. Medications and Allergies Home Medications Medication Instructions Recorded Confirmed Type cloNIDine HCL [Catapres] 0.1 mg PO DAILY@0 05/21/14 04/28/20 History Montelukast [Singulair] 10 mg PO HS@2100 09/19/15 04/28/20 History Cholecalciferol [Vitamin D3 (25 5,000 unit PO DAILY@1700 03/05/17 04/28/20 History Mcg = 1000 Iu)] hydroCHLOROthiazide 25 mg PO DAILY@02/07/18 04/28/20 History Ferrous Sulfate [Iron (65 MG 325 mg PO DAILY@169907/14/18 04/28/20 History Elemental)] Brimonidine Tartrate/Timolol 1 drop LEFT EYE BID@0800,1700 08/23/18 04/28/20 History [Combigan 0.2%-0.5% Eye Drops] carvediloL [Carvedilol] 25 mg PO BID@0800,0 08/23/18 04/28/20 History Baclofen 10 mg PO TID PRN 04/16/20 04/28/20 History Clopidogrel [Plavix] 75 mg PO DAILY@79904/16/20 04/28/20 History Cyanocobalamin (Vitamin B-12) 2,500 mcg PO DAILY@79904/16/20 04/28/20 History [Vitamin B-12] Ezetimibe [Zetia] 10 mg PO DAILY@79904/16/20 04/28/20 History Latanoprost/Pf [Latanoprost 0.005% 1 drop BOTH EYES HS@209904/16/20 04/28/20 History Eye Drop] Rosuvastatin Calcium 20 mg PO HS@209904/16/20 04/28/20 History Buta/APAP/Caf/Cod 89-219-54-30 1 - 2 cap PO Q4H PRN #18 cap MDD 4 04/18/20 04/28/20 Rx [Fioricet w/Cod 08-573-40-30MG] caps HYDROcodone/APAP 10-325MG [[place] 1 tab PO Q5H PRN #12 tab 04/18/20 04/28/20 Rx 10-325] Magnesium Hydroxide [Milk of 2,400 mg PO DAILY PRN ml 04/18/20 04/28/20 Rx Magnesia Concentrate] Aspirin 81 mg PO DAILY@169904/28/20 04/28/20 History Losartan Potassium 50 mg PO DAILY@79904/28/20 04/28/20 History Na Phos,M-B/Na Phos,Di-Ba [Fleet 133 ml RECTAL DAILY PRN 04/28/20 04/28/20 History Adult] Pantoprazole [Protonix] 40 mg PO DAILY@0600 04/28/20 04/28/20 History Pramipexole [Mirapex] 1 mg PO BID@0800,1700 04/28/20 04/28/20 History Rivaroxaban [Xarelto] 15 mg PO BID@0800,1700 04/28/20 04/28/20 History Sennosides-Docusate Sodium 1 tab PO BID@0800,1700 04/28/20 04/28/20 History [Senokot-S] Tamsulosin [Flomax] 0.4 mg PO BID@0800,17004/28/20 04/28/20 History amLODIPine [Norvasc] 2.5 mg PO BID@0800,17004/28/20 04/28/20 History bisacodyL [Dulcolax] 10 mg RECTAL Q24H PRN 04/28/20 04/28/20 History levETIRAcetam [Keppra] 500 mg PO DAILY@0800 04/28/20 04/28/20 History levETIRAcetam [Keppra] 750 mg PO DAILY@169904/28/20 04/28/20 History levoFLOXacin 500 mg PO DAILY@2130 04/28/20 04/28/20 History methocarbamoL [Robaxin] 750 mg PO TID PRN 04/28/20 04/28/20 History Allergies Allergy/AdvReac Type Severity Reaction Status Date / Time metoclopramide [From Reglan] AdvReac SHAKES Verified 04/28/20 15:51 oxycodone HCl AdvReac Nausea & Verified 04/28/20 15:51 [From OxyContin] Vomiting Physical Exam Vitals: Vital Signs Temp Pulse Pulse Resp BP BP Pulse Ox 04/29/20 07:46 85 16 04/29/20 07:45 98.3 F 85 16 115/74 94 L 04/29/20 04:00 98.4 F 80 17 122/74 95 04/28/20 23:24 97.9 F 88 18 102/63 98 04/28/20 20:00 98.0 F 86 17 121/74 97 04/28/20 18:36 98.1 F 79 18 135/81 96 04/28/20 17:30 73 15 128/74 97 04/28/20 17:00 73 25 H 122/88 96 04/28/20 16:30 68 22 133/83 97 04/28/20 16:00 129/76 97 04/28/20 15:30 132/76 04/28/20 15:00 118/71 97 04/28/20 14:48 95 04/28/20 14:45 98 F 66 18 118/71 97 Intake and Output 04/28/20 04/29/20 04/29/20 22:59 06:59 14:59 Intake Total 1200 0 Output Total 600 1700 150 Balance -600 -500 -150 Intake: Intake, IV Titration 1200 Amount Sodium Chloride 0.9% 1, 1200 000 ml @ 75 mls/hr IV . [id number] [facility] Rx#:[id number] Oral 0 Output: Urine 600 1700 150 Other: Voiding Method Indwelling Catheter Indwelling Catheter Indwelling Catheter Weight 95.935 kg 97 kg Results - Lab Results Most recent lab results Calcium 8.3 mg/dL (8.4-10.2) L 04/29/20 05:46 Magnesium 1.6 mg/dL (1.6-2.3) 04/29/20 05:46 04/29/20 05:46 04/29/20 05:46 Assessment and Plan Plan: assessment: 1. 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 Sodium level CXXII on admission and is 123 today. It dropped initially with IV fluid administration. Urine os molality 413. 2. Benign hypertension. Controlled. 3. History of seizures. plan: Hep-Lock IV fluids. Lasix 20 mg IV once today. Continue to monitor renal function and urine output. 1200 mL fluid restriction. Repeat sodium level this evening. Check TSH, uric acid and urine sodium level. Thank you for the consultation. I will continue to follow the patient with you during his hospital stay.
[2020-04-29] MEDS: HYDROcodone/APAP 10-325MG 1 EACH TAB PO PRN ×2 (15:16→21:07)
[2020-04-29] MEDS: FERROUS SULFATE 325 MG TAB PO SCH (16:11)
[2020-04-29] MEDS: ASPIRIN 81 MG PO SCH (16:11)
--- NOTE | 2020-04-29 17:57 | EEG ---
ELECTROENCEPHALOGRAM REPORT DATE OF SERVICE: 04/29/2020 CLINICAL HISTORY: This is an 84-year-old gentleman with a medical history of the Parkinson disease, seizure, who was transferred from outside rehab facility because of the patient having multiple episodes of unresponsiveness. He did have 1 episode of tonic- clonic jerking. This EEG was obtained to evaluate for seizure and epileptiform activity. RELEVANT MEDICATION: Keppra. EEG TYPE: The EEG type is a routine 21 channel EEG which was performed with video using the 10/20 electrode placement system. DESCRIPTION: Wakefulness is only obtained during the study. During wakefulness, there is a posterior dominant rhythm of low to moderate voltage of 8-8.5 hertz, that is reactive and well modulated. No drowsiness is noted during the study. There was no sleep 2 architecture seen. Interictal and ictal: None. ACTIVATION PROCEDURE: Photic stimulation was performed but did not show any photic driving response. Hyperventilation was not performed because of the patient's clinical history. EEG DIAGNOSIS: This is a normal EEG study during awake. CLINICAL INTERPRETATION: This is a normal routine awake EEG study. No focal slowing was seen. There is no epileptiform activity. No seizure was detected during the study. Clinical correlation is recommended. MMODL / IJN: [id number] / MTDD
[2020-04-29] MEDS: ATORVASTATIN 40 MG TAB PO SCH (21:06)
[2020-04-29] MEDS: LATANOPROST 0.005% OPHTH DROPS 2.5 ML BTL BOTH EYES SCH (21:07)
[2020-04-29] MEDS: MONTELUKAST 10 MG TAB PO SCH (21:07)
[2020-04-29] MEDS: SODIUM CHLORIDE TAB 1 GM TAB PO SCH (21:07)
--- NOTE | 2020-04-29 21:30 | P.GSCN ---
History of Present Illness Consult date: 04/29/20 Reason for Consult: Urinary retention History of present illness: The patient is an 84-year-old male who was transferred from [facility] yesterday for evaluation of intermittent episodes of reduced responsiveness related to either seizures or another cause. He has been noted to have hyponatremia which may be a contribury factor. The patient's history dates back to approximately 1 month ago when he underwent left hip replacement at [facility]. He says that he developed a DVT with pulmonary emboli approximately 2 weeks postop. CTA on 04/16/2020 appeared to show bilateral hydronephrosis, but this was not further evaluated. He was transferred to the rehabilitation unit at [facility] last week and a Olivo catheter was placed and apparently drained large amounts. He believes that he had 3 voiding trials while in the rehabilitation unit but remained unable to void. He was transferred to the hospital with the catheter in place. I was asked to see the patient due to his urinary retention. The patient says that he's had problems with urgency and urge incontinence for several months if not longer. He says that he normally voids every hour during the day and 4-6 times at night. He complains of episodic incomplete bladder emptying. He says that he normally has no problems with his bowels but has been constipated recently and is now having a bowel movement only once a week. The patient has a history of prostate cancer which was discovered in 2010 and was treated with radiation therapy. He has been followed by Dr Gibbs and was last seen by him in 03/2019. He also has a history of urolithiasis and a CT scan on 02/28/2019 showed nonobstructive bilateral renal calculi. He denies a history of recurrent urinary tract infections but apparently has had at least 1 infection associated with his Olivo catheter. Review of Systems - Constitutional Reports fatigue, Reports weakness, Denies fever - Respiratory Reports pain (back), Denies wheezing - Gastrointestinal Reports constipation, Denies abdominal pain - Genitourinary Reports as per HPI - Musculoskeletal Reports muscle weakness 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, multiple TIAs, parkinson's disease, neuralgia, neuropathy bilateral hands, legs and feet, thoracic spondylosis, prostrate cancer with surgery/chemo and radiation, UTIs, kidney stones, L eye glaucoma, PVD/bilateral lower e xtremity edema, caratid stenosis, aemia, bronchitis, lower GI bleed, ANDREA with CPap History of Any Multi-Drug Resistant Organisms: None Reported Past Surgical History: Adenoidectomy, Back Surgery, Heart Catheterization With Stent, Hernia Repair, Joint Replacement, Orthopedic Surgery, Prostate Surgery, Tonsillectomy Additional Past Surgical History / Comment(s): PCI with stent in 2012, prostate biopsies, laser vaporization of prostrate, bilateral inquinal hernia repairs, EGD/colonoscopy, supraorbital percutaneous nerve stimulator trial, epidural injections, low back surgery, R foot hammer toe surgery, bilateral total knee replacements, bilateral cataract removals/lens implants, hemorrhoidectomy, R side of head vein biopsy, left hip arthroplasty 2 weeks ago Past Anesthesia/Blood Transfusion Reactions: No Reported Reaction Additional Past Anesthesia/Blood Transfusion Reaction / Comm: Pt has received blood in past without reaction. Date of Last Stent Placement:: 2012 Past Psychological History: No Psychological Hx Reported Additional Psychological History / Comment(s): Pt resides with his spouse. He uses a walker to ambulate. Smoking Status: Never smoker Past Alcohol Use History: None Reported Past Drug Use History: None Reported - Past Family History Brother(s) Family Medical History: No Reported History Additional Family Medical History / Comment(s): Patient has 3 brothers with no major medical problems. Sister(s) Family Medical History: Hypertension Additional Family Medical History / Comment(s): Patient has 3 sisters that are all alive. 2 have high blood pressure. One has diabetes and stroke and is 81 years old. And all have history of tremors. Son(s) Family Medical History: No Reported History Additional Family Medical History / Comment(s): Patient has 3 sons and one daughter with no major medical problems. Father Family Medical History: Myocardial Infarction (MS) Additional Family Medical History / Comment(s): Father at age 73 with history of Parkinson's disease, bowel cancer, bone cancer. Mother Family Medical History: No Reported History, Myocardial Infarction (MS) Additional Family Medical History / Comment(s): Mother at age 85 with history of hypertension and dementia. Medications and Allergies Home Medications Medication Instructions Recorded Confirmed Type cloNIDine HCL [Catapres] 0.1 mg PO DAILY@05/21/04/28/20 History Montelukast [Singulair] 10 mg PO HS@209909/19/15 04/28/20 History Cholecalciferol [Vitamin D3 (25 5,000 unit PO DAILY@169903/05/17 04/28/20 History Mcg = 1000 Iu)] hydroCHLOROthiazide 25 mg PO DAILY@79902/07/18 04/28/20 History Ferrous Sulfate [Iron (65 MG 325 mg PO DAILY@169907/14/18 04/28/20 History Elemental)] Brimonidine Tartrate/Timolol 1 drop LEFT EYE BID@0800,169908/23/18 04/28/20 History [Combigan 0.2%-0.5% Eye Drops] carvediloL [Carvedilol] 25 mg PO BID@0800,169908/23/18 04/28/20 History Baclofen 10 mg PO TID PRN 04/16/20 04/28/20 History Clopidogrel [Plavix] 75 mg PO DAILY@79904/16/20 04/28/20 History Cyanocobalamin (Vitamin B-12) 2,500 mcg PO DAILY@79904/16/20 04/28/20 History [Vitamin B-12] Ezetimibe [Zetia] 10 mg PO DAILY@79904/16/20 04/28/20 History Latanoprost/Pf [Latanoprost 0.005% 1 drop BOTH EYES HS@209904/16/20 04/28/20 History Eye Drop] Rosuvastatin Calcium 20 mg PO HS@209904/16/20 04/28/20 History Buta/APAP/Caf/Cod 42-387-15-30 1 - 2 cap PO Q4H PRN #18 cap MDD 4 04/18/20 04/28/20 Rx [Fioricet w/Cod 14-480-34-30MG] caps HYDROcodone/APAP 10-325MG [Shiro 1 tab PO Q5H PRN #12 tab 04/18/20 04/28/20 Rx 10-325] Magnesium Hydroxide [Milk of 2,400 mg PO DAILY PRN ml 04/18/20 04/28/20 Rx Magnesia Concentrate] Aspirin 81 mg PO DAILY@17004/28/20 04/28/20 History Losartan Potassium 50 mg PO DAILY@0804/28/20 04/28/20 History Na Phos,M-B/Na Phos,Di-Ba [Fleet 133 ml RECTAL DAILY PRN 04/28/20 04/28/20 History Adult] Pantoprazole [Protonix] 40 mg PO DAILY@0600 04/28/20 04/28/20 History Pramipexole [Mirapex] 1 mg PO BID@0800,169904/28/20 04/28/20 History Rivaroxaban [Xarelto] 15 mg PO BID@0800,169904/28/20 04/28/20 History Sennosides-Docusate Sodium 1 tab PO BID@0800,169904/28/20 04/28/20 History [Senokot-S] Tamsulosin [Flomax] 0.4 mg PO BID@0800,1700 04/28/20 04/28/20 History amLODIPine [Norvasc] 2.5 mg PO BID@0800,0 04/28/20 04/28/20 History bisacodyL [Dulcolax] 10 mg RECTAL Q24H PRN 04/28/20 04/28/20 History levETIRAcetam [Keppra] 500 mg PO DAILY@0800 04/28/20 04/28/20 History levETIRAcetam [Keppra] 750 mg PO DAILY@169904/28/20 04/28/20 History levoFLOXacin 500 mg PO DAILY@2130 04/28/20 04/28/20 History methocarbamoL [Robaxin] 750 mg PO TID PRN 04/28/20 04/28/20 History Allergies Allergy/AdvReac Type Severity Reaction Status Date / Time metoclopramide [From Reglan] AdvReac SHAKES Verified 04/28/20 15:51 oxycodone HCl AdvReac Nausea & Verified 04/28/20 15:51 [From OxyContin] Vomiting Surgical - Exam Vital Signs Temp Pulse Resp BP Pulse Ox 98 F 66 18 118/71 97 04/28/20 14:45 04/28/20 14:45 04/28/20 14:45 04/28/20 14:45 04/28/20 14:45 - General well developed, well nourished, no distress, obese - ENT no hearing loss - Neck no masses, no lymphadectomy - Respiratory normal respiratory effort - Abdomen Abdomen: soft, non tender, no organomegaly Hernia: none - Genitourinary normal penis with no external lesions, testicles non-tender, other (Olivo catheter is in place and is draining clear urine.) - Rectum Rectum: normal sphincter tone, no masses, other (Prostate is flat and consistent with previous radiation therapy) Results - Labs 04/29/20 05:46 04/29/20 17:00 Abnormal Lab Results - Last 24 Hours (Table) 04/28/20 04/29/20 04/29/20 Range/Units 21:59 05:46 05:46 RBC 2.82 L (4.30-5.90) m/uL Hgb 8.3 L (13.0-17.5) gm/dL Hct 24.8 L (39.0-53.0) % Lymphocytes # 0.8 L (1.0-4.8) k/uL Sodium 121 L 123 L (137-145) mmol/L Chloride 93 L (98-107) mmol/L Creatinine 0.65 L (0.66-1.25) mg/dL Uric Acid (3.5-8.5) mg/dL Calcium 8.3 L (8.4-10.2) mg/dL 04/29/20 04/29/20 Range/Units 05:46 17:00 RBC (4.30-5.90) m/uL Hgb (13.0-17.5) gm/dL Hct (39.0-53.0) % Lymphocytes # (1.0-4.8) k/uL Sodium 121 L (137-145) mmol/L Chloride (98-107) mmol/L Creatinine (0.66-1.25) mg/dL Uric Acid 3.1 L (3.5-8.5) mg/dL Calcium (8.4-10.2) mg/dL Microbiology - Last 24 Hours (Table) 04/28/20 16:56 Urine Culture - Final Urine,Voided Diabetes panel 04/28/20 04/29/20 04/29/20 Range/Units 21:59 05:46 17:00 Sodium 121 L 123 L 121 L (137-145) mmol/L Potassium 3.8 (3.5-5.1) mmol/L Chloride 93 L (98-107) mmol/L Carbon Dioxide 24 (22-30) mmol/L BUN 10 (9-20) mg/dL Creatinine 0.65 L (0.66-1.25) mg/dL Glucose 94 (74-99) mg/dL Calcium 8.3 L (8.4-10.2) mg/dL Calcium panel 04/29/20 Range/Units 05:46 Calcium 8.3 L (8.4-10.2) mg/dL Pituitary panel 04/28/20 04/29/20 04/29/20 Range/Units 21:59 05:46 17:00 Sodium 121 L 123 L 121 L (137-145) mmol/L Potassium 3.8 (3.5-5.1) mmol/L Chloride 93 L (98-107) mmol/L Carbon Dioxide 24 (22-30) mmol/L BUN 10 (9-20) mg/dL Creatinine 0.65 L (0.66-1.25) mg/dL Glucose 94 (74-99) mg/dL Calcium 8.3 L (8.4-10.2) mg/dL Adrenal panel 04/28/20 04/29/20 04/29/20 Range/Units 21:59 05:46 17:00 Sodium 121 L 123 L 121 L (137-145) mmol/L Potassium 3.8 (3.5-5.1) mmol/L Chloride 93 L (98-107) mmol/L Carbon Dioxide 24 (22-30) mmol/L BUN 10 (9-20) mg/dL Creatinine 0.65 L (0.66-1.25) mg/dL Glucose 94 (74-99) mg/dL Calcium 8.3 L (8.4-10.2) mg/dL Assessment and Plan (1) Urinary retention due to benign prostatic hyperplasia Narrative/Plan: Although the patient developed urinary retention following his hip replacement, by history he had sensations of incomplete bladder emptying even prior to that. It is unclear to me how distended the patient's bladder was when a catheter was initially placed. I will attempt to discuss this with his previous caregivers at [facility]. For the time being the patient should be managed with an indwelling catheter. It may be that he will require a longer period of catheter drainage if he had any significant bladder overdistention. Current Visit: Yes Status: Acute Code(s): N40.1 - BENIGN PROSTATIC HYPERPLASIA WITH LOWER URINARY TRACT SYMP; R33.8 - OTHER RETENTION OF URINE SNOMED Code(s): 155730791
[2020-04-30] MEDS: HYDROcodone/APAP 10-325MG 1 EACH TAB PO PRN ×3 (04:24→19:37)
[2020-04-30] MEDS: PANTOPRAZOLE 40 MG TABLET PO SCH (06:52)
[2020-04-30 07:57] LABS: African American GFR (CKD) >90 (>60 ml/min/1.73 sqM); Anion Gap 4 mmol/L; Blood Urea Nitrogen 10 mg/dL (9-20); Calcium 8.4 mg/dL (8.4-10.2); Carbon Dioxide 27 mmol/L (22-30); Chloride 93 mmol/L (98-107); Glucose 97 mg/dL (74-99); Magnesium 1.7 mg/dL (1.6-2.3); Non-African American GFR(CKD) >90 (>60 ml/min/1.73 sqM); Sodium 124 mmol/L (137-145)
[2020-04-30] MEDS: CLOPIDOGREL 75 MG TAB PO SCH (08:58)
[2020-04-30] MEDS: levETIRAcetam 500 MG TAB PO SCH (08:58)
[2020-04-30] MEDS: EZETIMIBE 10 MG TAB PO SCH (08:58)
[2020-04-30] MEDS: LOSARTAN 50 MG TAB PO SCH (08:58)
[2020-04-30] MEDS: SENNOSIDES-DOCUSATE SODIUM 1 EACH TAB PO SCH ×2 (08:58→16:38)
[2020-04-30] MEDS: SODIUM CHLORIDE TAB 1 GM TAB PO SCH ×2 (08:58→19:37)
[2020-04-30] MEDS: TAMSULOSIN 0.4 MG CAP.ER.24H PO SCH ×2 (08:58→16:38)
[2020-04-30] MEDS: TIMOLOL 0.5% OPHTH DROPS 5 ML BTL LEFT EYE SCH ×2 (08:59→16:39)
[2020-04-30] MEDS: CYANOCOBALAMIN 500 MCG TAB PO SCH (08:59)
[2020-04-30] MEDS: BRIMONIDINE TARTRATE 0.2% DROPS 5 ML BTL LEFT EYE SCH ×2 (08:59→16:39)
[2020-04-30] MEDS: RIVAROXABAN 15 MG TAB PO SCH ×2 (08:59→16:39)
[2020-04-30] MEDS: carvediloL 12.5 MG TAB PO SCH ×2 (09:00→16:39)
[2020-04-30 09:38] LABS: T4, Free (Free Thyroxine) 2.25 ng/dL (0.78-2.19)
--- NOTE | 2020-04-30 12:15 | P.PN ---
Subjective Patient is seen in follow-up for hyponatremia. Sodium level up to 124 this morning. Oral intake is good. Has a Olivo catheter for urinary retention. Urine output 1700 mL overnight. Vital signs are stable. General: The patient appeared well nourished and normally developed. HEENT: Head exam is unremarkable. Neck is without jugular venous distension. LUNGS: Lungs are clear to auscultation and percussion. Breath sounds decreased. HEART: Rate and Rhythm are regular. ABDOMEN: Soft, nontender. EXTREMITITES: No clubbing, cyanosis, or edema. Objective - Vital Signs Vital signs: Vital Signs Temp 97.6 F 04/30/20 11:58 Pulse 63 04/30/20 12:00 Resp 18 04/30/20 12:00 BP 126/74 04/30/20 11:58 Pulse Ox 95 04/30/20 11:58 Intake & Output 04/29/20 04/30/20 04/30/20 18:59 06:59 18:59 Intake Total 300 310 Output Total 1100 500 325 Balance -800 -500 -15 Weight 97 kg 94 kg Intake: IV 10 Invasive Line 2 10 Oral 300 300 Output: Urine 1100 500 325 Other: Voiding Method Indwelling Catheter Indwelling Catheter Indwelling Catheter - Labs CBC & Chem 7: 04/29/20 05:46 04/30/20 07:16 Labs: Abnormal Lab Results - Last 24 Hours (Table) 04/29/20 04/30/20 Range/Units 17:00 07:16 Sodium 121 L 124 L (137-145) mmol/L Chloride 93 L (98-107) mmol/L Creatinine 0.56 L (0.66-1.25) mg/dL TSH 7.190 H (0.465-4.680) mIU/L Free T4 2.25 H (0.78-2.19) ng/dL Microbiology - Last 24 Hours (Table) 04/28/20 16:56 Urine Culture - Final Urine,Voided Assessment and Plan Plan: assessment: 1. 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 Sodium level 122 on admission and is 124 today. It dropped initially with IV fluid administration. Urine osmolality 413. TSH elevated. 2. Benign hypertension. Controlled. 3. History of seizures. plan: Maintain salt tabs for now. Continue to monitor renal function and urine output. 1200 mL fluid restriction. Repeat sodium level this evening. Consider Synthroid.
--- NOTE | 2020-04-30 15:06 | P.PN ---
Subjective Progress Note Date: 04/30/20 History of Present Illness This is an 84-year-old male patient of Dr. Lawson with past medical history of coronary artery disease, Parkinson's disease, recurrent headaches, severe PAD, generalized osteoarthritis, obstructive sleep apnea on CPAP. Patient recently underwent a total left hip arthroplasty with Dr. Horvath at [facility] and was subsequently admitted to [facility] on April 16 due to generalized debility and shortness of breath, found to have bilateral pulmonary embolism and large DVT in the right leg. Patient was discharge to [facility] for subacute rehab and was doing well over the weekend there was concern for seizure activity. Over the past week patient has had multiple episodes of similar events. He does have a history of seizure disorder the patient is having unresponsive episodes for approximately 25-30 minutes and also had episode yesterday afternoon of a tonic-clonic type activity patient apparently had 34 episodes over the past week and for most of them he becomes unresponsive lasting for about 30-40 seconds and then is able to return to baseline. Patient was brought into [facility] emergency center for evaluation. EKG normal sinus rhythm with no acute ST-T wave changes. Potassium 4.2, chloride 89, CO2 24, BUN 12 and creatinine 0.71, blood sugar 116. Lactic acid 1.8, ammonia level less than 9. Liver function tests normal. Patient was started on IV fluids, hydrochlorothiazide on hold. Patient admitted to the cardiac stepdown unit and consults requested with neurology and nephrology and consult added for urology regarding urinary retention and chronic Olivo catheter. 04/30: Patient has been afebrile, heart rate 72, blood pressure 121/67, pulse ox 93% on room air. Repeat blood work reveals sodium 124, potassium 4.0, chloride 93, CO2 27, BUN 10 and creatinine 0.56. Blood sugar 97. TSH 7.190 and free T4 2 0.25. We are planning to repeat TSH and free T4 and if still elevated, start levothyroxine 25 g daily. Patient has been seen by nephrology for SIADH. He has a Olivo catheter in for urinary retention which will remain. He is on a 1200 mL fluid restriction. Salt tablets have been ordered by nephrology. Review of Systems Constitutional: No fever, no chills, no night sweats. No weight change. No weakness, fatigue or lethargy. No daytime sleepiness. EENT: No headache. No blurred vision or double vision, no loss of vision. No loss of Hearing, no ringing in the ears, no dizziness. No nasal drainage or congestion. No epistaxis. No sore throat. Lungs: No shortness of breath, cough, no sputum production. No wheezing. Cardiovascular: No chest pain, no lower extremity edema. No palpitations. No paroxysmal nocturnal dyspnea. No orthopnea. No lightheadedness or dizziness. Reports syncopal episodes. Abdominal: No abdominal pain. No nausea, vomiting. No diarrhea. No constipation. No bloody or tarry stools.. No loss of appetite. Genitourinary: No dysuria, increased frequency, urgency. Reports urinary retention-Olivo. Musculoskeletal: No myalgias. No muscle weakness, reports gait dysfunction, no frequent falls. No back pain. No neck pain. Integumentary: No wounds, no lesions. No rash or pruritus. No unusual bru ising. No change in hair or nails. Neurologic: No aphasia. No facial droop. No change in mentation. No head injury. No headache. No paralysis. No paresthesia. Psychiatric: No depression. No anxiety. No mood swings. Endocrine: No abnormal blood sugars. No weight change. No excessive sweating or thirst. No cold intolerance. Physical Examination Gen: This is an 84-year-old male. He is resting in bed and appears comfortable. HEENT: Head is atraumatic, normocephalic. Pupils equal, round. Sclerae is anicteric. NECK: Supple. No JVD. No lymphadenopathy. No thyromegaly. LUNGS: Clear to auscultation. No wheezes or rhonchi. No intercostal retractions. HEART: Regular rate and rhythm. Systolic ejection murmur. ABDOMEN: Soft. Bowel sounds are present. No masses. No tenderness. Olivo catheter draining clear liane urine. EXTREMITIES: No pedal edema. No calf tenderness. NEUROLOGICAL: Patient is awake, alert and oriented x3. Cranial nerves 2 through 12 are grossly intact. Assessment and Plan 1. Seizure/syncopal episodes. Neurology consult appreciated. CAT scan of the head did not show any acute intracranial abnormality. EEG normal. Patient is currently on Keppra 500 mg in the morning and 750 mg at night which Dr. Bran Pedroza recommended continuing this dosing. 2. Hyponatremia with SIADH. Hydrochlorothiazide on hold, fluid restriction, nephrology consult. 3. Acute catheter associated urinary tract infection. Patient has been on Levaquin. It was exchanged to ceftriaxone from neurology recommendations to avoid fluoroquinolones. 4. Urinary retention. Urology consult. Patient has a chronic Olivo catheter in place. 5. Bilateral pulmonary embolism originating from DVT right leg. Continue Xarelto. 6. Recent history of left total knee arthroplasty. PT and OT. 7. Hypertension. Continue Coreg 25 mg twice daily, losartan 50 mg daily. Hold hydrochlorothiazide. 8. Hyperlipidemia. Continue Lipitor 40 mg daily, Zetia 10 mg daily. 9. History of CVA. Continue Plavix 75 mg daily, aspirin 81 mg daily, Lipitor 40 mg daily. 10. Coronary artery disease status post angioplasty and stent placement. Continue Plavix, aspirin, Lipitor. 11. Benign prostatic hypertrophy with urinary retention requiring straight cath and subsequent Olivo catheter placement on last admission. 12. History of seizure disorder. Patient normally follows with Dr. Byrd. 13. Restless leg syndrome. Continue Mirapex 1 mg twice daily. 14. GI prophylaxis. Protonix. 15. DVT prophylaxis. Xarelto. 16. COVID-19 testing required prior to discharge to [facility]. CODE STATUS: Full code Discharge plan: Most likely return to [facility] to complete subacute rehab on . Impression and plan of care have been directed as dictated by the signing physician. Suly Gallo nurse practitioner acting as scribe for signing physician. Objective - Vital Signs Vital signs: Vital Signs Temp 98.2 F 04/30/20 04:00 Pulse 62 04/30/20 04:00 Resp 171 H 04/30/20 04:00 BP 121/67 04/30/20 04:00 Pulse Ox 93 L 04/30/20 04:00 Intake & Output 04/29/20 04/30/20 04/30/20 18:59 06:59 18:59 Intake Total 300 Output Total 1100 500 Balance -800 -500 Weight 97 kg 94 kg Intake: Oral 300 Output: Urine 1100 500 Other: Voiding Method Indwelling Catheter Indwelling Catheter - Labs CBC & Chem 7: 04/29/20 05:46 04/30/20 07:16 Labs: Abnormal Lab Results - Last 24 Hours (Table) 04/29/20 04/29/20 04/29/20 Range/Units 05:46 05:46 17:00 Sodium 123 L 121 L (137-145) mmol/L Chloride 93 L (98-107) mmol/L Creatinine 0.65 L (0.66-1.25) mg/dL Uric Acid 3.1 L (3.5-8.5) mg/dL Calcium 8.3 L (8.4-10.2) mg/dL TSH (0.465-4.680) mIU/L 04/30/20 Range/Units 07:16 Sodium 124 L (137-145) mmol/L Chloride 93 L (98-107) mmol/L Creatinine 0.56 L (0.66-1.25) mg/dL Uric Acid (3.5-8.5) mg/dL Calcium (8.4-10.2) mg/dL TSH 7.190 H (0.465-4.680) mIU/L Microbiology - Last 24 Hours (Table) 04/28/20 16:56 Urine Culture - Final Urine,Voided
[2020-04-30] MEDS: ASPIRIN 81 MG PO SCH (16:38)
[2020-04-30] MEDS: FERROUS SULFATE 325 MG TAB PO SCH (16:39)
[2020-04-30] MEDS: MONTELUKAST 10 MG TAB PO SCH (19:37)
[2020-04-30] MEDS: ATORVASTATIN 40 MG TAB PO SCH (19:37)
[2020-04-30] MEDS: LATANOPROST 0.005% OPHTH DROPS 2.5 ML BTL BOTH EYES SCH (19:37)
[2020-05-01] MEDS: PANTOPRAZOLE 40 MG TABLET PO SCH (06:30)
[2020-05-01 07:29] LABS: African American GFR (CKD) >90 (>60 ml/min/1.73 sqM); Anion Gap 6 mmol/L; Blood Urea Nitrogen 10 mg/dL (9-20); Calcium 8.5 mg/dL (8.4-10.2); Carbon Dioxide 26 mmol/L (22-30); Chloride 96 mmol/L (98-107); Glucose 97 mg/dL (74-99); Magnesium 1.8 mg/dL (1.6-2.3); Non-African American GFR(CKD) >90 (>60 ml/min/1.73 sqM); Potassium 4.2 mmol/L (3.5-5.1); Sodium 128 mmol/L (137-145)
[2020-05-01] MEDS: MAGNESIUM HYDROXIDE 2,400 MG/10 ML CUP PO PRN (08:41)
[2020-05-01] MEDS: CYANOCOBALAMIN 500 MCG TAB PO SCH (08:41)
[2020-05-01] MEDS: carvediloL 12.5 MG TAB PO SCH ×2 (08:42→17:57)
[2020-05-01] MEDS: CLOPIDOGREL 75 MG TAB PO SCH (08:42)
[2020-05-01] MEDS: SODIUM CHLORIDE TAB 1 GM TAB PO SCH ×2 (08:42→21:40)
[2020-05-01] MEDS: levETIRAcetam 500 MG TAB PO SCH (08:42)
[2020-05-01] MEDS: RIVAROXABAN 15 MG TAB PO SCH ×2 (08:42→17:57)
[2020-05-01] MEDS: EZETIMIBE 10 MG TAB PO SCH (08:42)
[2020-05-01] MEDS: TIMOLOL 0.5% OPHTH DROPS 5 ML BTL LEFT EYE SCH ×2 (08:43→18:00)
[2020-05-01] MEDS: LOSARTAN 50 MG TAB PO SCH (08:43)
[2020-05-01] MEDS: SENNOSIDES-DOCUSATE SODIUM 1 EACH TAB PO SCH ×2 (08:43→17:57)
[2020-05-01] MEDS: BRIMONIDINE TARTRATE 0.2% DROPS 5 ML BTL LEFT EYE SCH ×2 (08:43→18:00)
[2020-05-01] MEDS: TAMSULOSIN 0.4 MG CAP.ER.24H PO SCH ×2 (08:43→17:59)
--- NOTE | 2020-05-01 14:37 | P.PN ---
Subjective Patient is seen in follow-up for hyponatremia. Sodium level up to 128 this morning. Oral intake is good. Has a Olivo catheter for urinary retention. Good UO. No edema. BP stable. Vital signs are stable. General: The patient appeared well nourished and normally developed. HEENT: Head exam is unremarkable. Neck is without jugular venous distension. LUNGS: Lungs are clear to auscultation and percussion. Breath sounds decreased. HEART: Rate and Rhythm are regular. ABDOMEN: Soft, nontender. EXTREMITITES: No clubbing, cyanosis, or edema. Objective - Vital Signs Vital signs: Vital Signs Temp 97.5 F L 05/01/20 08:30 Pulse 84 05/01/20 12:15 Resp 16 05/01/20 12:15 BP 146/89 05/01/20 12:15 Pulse Ox 95 05/01/20 12:15 Intake & Output 04/30/20 05/01/20 05/01/20 18:59 06:59 18:59 Intake Total 1330 100 480 Output Total 625 500 Balance 705 100 -20 Weight 91 kg Intake: IV 70 100 Invasive Line 2 20 cefTRIAXone 1 gm In 50 100 Sodium Chloride 0.9% 50 ml @ 100 mls/hr IVPB Q24HR COUNTS INCLUDE 234 BEDS AT THE [facility] Rx#:[id number] Oral 1260 480 Output: Urine 625 500 Other: Voiding Method Indwelling Catheter Indwelling Catheter Indwelling Catheter # Voids 1 - Labs CBC & Chem 7: 04/29/20 05:46 05/01/20 06:32 Labs: Abnormal Lab Results - Last 24 Hours (Table) 04/30/20 05/01/20 Range/Units 17:03 06:32 Sodium 124 L 128 L (137-145) mmol/L Chloride 96 L (98-107) mmol/L Creatinine 0.60 L (0.66-1.25) mg/dL Assessment and Plan Plan: assessment: 1. 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 Sodium level 122 on admission and is 128 today. It dropped initially with IV fluid administration. Urine osmolality 413. TSH elevated. 2. Benign hypertension. Controlled. 3. History of seizures. plan: Maintain salt tabs for now. Continue to monitor renal function and urine output. 1200 mL fluid restriction. Avoid thiazide diuretics.
--- NOTE | 2020-05-01 14:44 | P.PN ---
Subjective Progress Note Date: 05/01/20 History of Present Illness This is an 84-year-old male patient of Dr. Lawson with past medical history of coronary artery disease, Parkinson's disease, recurrent headaches, severe PAD, generalized osteoarthritis, obstructive sleep apnea on CPAP. Patient recently underwent a total left hip arthroplasty with Dr. Horvath at [facility] and was subsequently admitted to [facility] on April 16 due to generalized debility and shortness of breath, found to have bilateral pulmonary embolism and large DVT in the right leg. Patient was discharge to [facility] for subacute rehab and was doing well over the weekend there was concern for seizure activity. Over the past week patient has had multiple episodes of similar events. He does have a history of seizure disorder the patient is having unresponsive episodes for approximately 25-30 minutes and also had episode yesterday afternoon of a tonic-clonic type activity patient apparently had 34 episodes over the past week and for most of them he becomes unresponsive lasting for about 30-40 seconds and then is able to return to baseline. Patient was brought into [facility] emergency center for evaluation. EKG normal sinus rhythm with no acute ST-T wave changes. Potassium 4.2, chloride 89, CO2 24, BUN 12 and creatinine 0.71, blood sugar 116. Lactic acid 1.8, ammonia level less than 9. Liver function tests normal. Patient was started on IV fluids, hydrochlorothiazide on hold. Patient admitted to the cardiac stepdown unit and consults requested with neurology and nephrology and consult added for urology regarding urinary retention and chronic Olivo catheter. 04/30: Patient has been afebrile, heart rate 72, blood pressure 121/67, pulse ox 93% on room air. Repeat blood work reveals sodium 124, potassium 4.0, chloride 93, CO2 27, BUN 10 and creatinine 0.56. Blood sugar 97. TSH 7.190 and free T4 2 0.25. We are planning to repeat TSH and free T4 and if still elevated, start levothyroxine 25 g daily. Patient has been seen by nephrology for SIADH. He has a Olivo catheter in for urinary retention which will remain. He is on a 1200 mL fluid restriction. Salt tablets have been ordered by nephrology. 05/01: The patient is seen today in follow-up. He denies any new complaints and states he is feeling well. Patient has been afebrile, heart rate 87, blood pressure 147/88, pulse ox 95% on room air. A repeat blood work reveals improving sodium at 128, potassium 4.2, chloride 96, CO2 26, BUN 10 and creatinine 0.6. COVID-[address] Reina has recommended continuing salt tablets and 1200 mL fluid restriction. Avoid thiazide diuretics. Patient is seen and followed by urology. This afternoon, patient had a syncopal episode with his nurse and at side. Patient was ambulating into the bathroom. His initial blood pressure 75/51. His blood pressures have been running normal since he has been admitted. Patient's states he has multiple episodes like this at [facility]. Today's episode possible vasovagal. Review of Systems Constitutional: No fever, no chills, no night sweats. No weight change. No weakness, fatigue or lethargy. No daytime sleepiness. EENT: No headache. No blurred vision or double vision, no loss of vision. No loss of Hearing, no ringing in the ears, no dizziness. No nasal drainage or congestion. No epistaxis. No sore throat. Lungs: No shortness of breath, cough, no sputum production. No wheezing. Cardiovascular: No chest pain, no lower extremity edema. No palpitations. No paroxysmal nocturnal dyspnea. No orthopnea. No lightheadedness or dizziness. Reports syncopal episodes. Abdominal: No abdominal pain. No nausea, vomiting. No diarrhea. No constipation. No bloody or tarry stools.. No loss of appetite. Genitourinary: No dysuria, increased frequency, urgency. Reports urinary retention-Loivo. Musculoskeletal: No myalgias. No muscle weakness, reports gait dysfunction, no frequent falls. No back pain. No neck pain. Integumentary: No wounds, no lesions. No rash or pruritus. No unusual bruising. No change in hair or nails. Neurologic: No aphasia. No facial droop. No change in mentation. No head injury. No headache. No paralysis. No paresthesia. Psychiatric: No depression. No anxiety. No mood swings. Endocrine: No abnormal blood sugars. No weight change. No excessive sweating or thirst. No cold intolerance. Physical Examination Gen: This is an 84-year-old male. He is resting in bed and appears comfortable. HEENT: Head is atraumatic, normocephalic. Pupils equal, round. Sclerae is anicteric. NECK: Supple. No JVD. No lymphadenopathy. No thyromegaly. LUNGS: Clear to auscultation. No wheezes or rhonchi. No intercostal retractions. HEART: Regular rate and rhythm. Systolic ejection murmur. ABDOMEN: Soft. Bowel sounds are present. No masses. No tenderness. Olivo catheter draining clear liane urine. EXTREMITIES: No pedal edema. No calf tenderness. NEUROLOGICAL: Patient is awake, alert and oriented x3. Cranial nerves 2 through 12 are grossly intact. Assessment and Plan 1. Seizure/syncopal episodes. Neurology consult appreciated. CAT scan of the head did not show any acute intracranial abnormality. EEG normal. Patient is currently on Keppra 500 mg in the morning and 750 mg at night which Dr. Bran Pedroza recommended continuing this dosing. 2. Hyponatremia with SIADH. Hydrochlorothiazide on hold, fluid restriction, nephrology consult. Sodium tablets, 1200 mL fluid restriction. 3. Acute catheter associated urinary tract infection. Patient has been on Levaquin. It was exchanged to ceftriaxone from neurology recommendations to avoid fluoroquinolones. 4. Urinary retention. Urology consult. Patient has a chronic Olivo catheter in place. 5. Bilateral pulmonary embolism originating from DVT right leg. Continue Xarelto. 6. Recent history of left total knee arthroplasty. PT and OT. 7. Hypertension. Continue Coreg 25 mg twice daily, losartan 50 mg daily. Hold hydrochlorothiazide. 8. Hyperlipidemia. Continue Lipitor 40 mg daily, Zetia 10 mg daily. 9. History of CVA. Continue Plavix 75 mg daily, aspirin 81 mg daily, Lipitor 40 mg daily. 10. Coronary artery disease status post angioplasty and stent placement. Continue Plavix, aspirin, Lipitor. 11. Benign prostatic hypertrophy with urinary retention requiring straight cath and subsequent Olivo catheter placement on last admission. 12. History of seizure disorder. Patient normally follows with Dr. Byrd. Continue Keppra. 13. Restless leg syndrome. Continue Mirapex 1 mg twice daily. 14. GI prophylaxis. Protonix. 15. DVT prophylaxis. Xarelto. 16. COVID-19 infection of present. 17. Syncopal episode on May 01, possible vasovagal with initially low blood pressure. CODE STATUS: Full code Discharge plan: [facility] on . Impression and plan of care have been directed as dictated by the signing physician. Suly Gallo nurse practitioner acting as scribe for signing physician. Objective - Vital Signs Vital signs: Vital Signs Temp 97.5 F L 05/01/20 08:30 Pulse 87 05/01/20 08:30 Resp 16 05/01/20 08:30 BP 147/88 05/01/20 08:30 Pulse Ox 95 05/01/20 08:30 Intake & Output 04/30/20 05/01/20 05/01/20 18:59 06:59 18:59 Intake Total 1330 100 360 Output Total 625 Balance 705 100 360 Weight 91 kg Intake: IV 70 100 Invasive Line 2 20 cefTRIAXone 1 gm In 50 100 Sodium Chloride 0.9% 50 ml @ 100 mls/hr IVPB Q24HR [facility] Rx#:[id number] Oral 1260 360 Output: Urine 625 Other: Voiding Method Indwelling Catheter Indwelling Catheter # Voids 1 - Labs CBC & Chem 7: 04/29/20 05:46 05/01/20 06:32 Labs: Abnormal Lab Results - Last 24 Hours (Table) 04/30/20 04/30/20 05/01/20 Range/Units 07:16 17:03 06:32 Sodium 124 L 128 L (137-145) mmol/L Chloride 96 L (98-107) mmol/L Creatinine 0.60 L (0.66-1.25) mg/dL Free T4 2.25 H (0.78-2.19) ng/dL
[2020-05-01] MEDS: FERROUS SULFATE 325 MG TAB PO SCH (17:57)
[2020-05-01] MEDS: ASPIRIN 81 MG PO SCH (17:57)
[2020-05-01] MEDS: ATORVASTATIN 40 MG TAB PO SCH (21:40)
[2020-05-01] MEDS: LATANOPROST 0.005% OPHTH DROPS 2.5 ML BTL BOTH EYES SCH (21:40)
[2020-05-01] MEDS: MONTELUKAST 10 MG TAB PO SCH (21:40)
[2020-05-01] MEDS: HYDROcodone/APAP 10-325MG 1 EACH TAB PO PRN (23:00)
[2020-05-02] MEDS: HYDROcodone/APAP 10-325MG 1 EACH TAB PO PRN ×2 (04:40→15:02)
[2020-05-02] MEDS: PANTOPRAZOLE 40 MG TABLET PO SCH (05:56)
[2020-05-02 07:10] LABS: African American GFR (CKD) >90 (>60 ml/min/1.73 sqM); Anion Gap 4 mmol/L; Blood Urea Nitrogen 12 mg/dL (9-20); Calcium 8.3 mg/dL (8.4-10.2); Carbon Dioxide 26 mmol/L (22-30); Chloride 99 mmol/L (98-107); Glucose 110 mg/dL (74-99); Non-African American GFR(CKD) >90 (>60 ml/min/1.73 sqM); Potassium 3.6 mmol/L (3.5-5.1); Sodium 129 mmol/L (137-145)
[2020-05-02] MEDS: SENNOSIDES-DOCUSATE SODIUM 1 EACH TAB PO SCH ×2 (09:44→17:59)
[2020-05-02] MEDS: CYANOCOBALAMIN 500 MCG TAB PO SCH (09:44)
[2020-05-02] MEDS: LOSARTAN 50 MG TAB PO SCH (09:44)
[2020-05-02] MEDS: TAMSULOSIN 0.4 MG CAP.ER.24H PO SCH ×2 (09:44→17:59)
[2020-05-02] MEDS: RIVAROXABAN 15 MG TAB PO SCH ×2 (09:45→17:59)
[2020-05-02] MEDS: carvediloL 12.5 MG TAB PO SCH ×2 (09:45→17:59)
[2020-05-02] MEDS: SODIUM CHLORIDE TAB 1 GM TAB PO SCH ×2 (09:46→20:28)
[2020-05-02] MEDS: EZETIMIBE 10 MG TAB PO SCH (09:47)
[2020-05-02] MEDS: BRIMONIDINE TARTRATE 0.2% DROPS 5 ML BTL LEFT EYE SCH ×2 (09:52→18:00)
[2020-05-02] MEDS: TIMOLOL 0.5% OPHTH DROPS 5 ML BTL LEFT EYE SCH ×2 (09:53→18:00)
[2020-05-02] MEDS: BACLOFEN 10 MG TAB PO SCH ×3 (10:03→20:29)
--- NOTE | 2020-05-02 10:46 | P.PN ---
Subjective Progress Note Date: 05/02/20 Principal diagnosis: Provoked seizure UTI Hyponatremia Patient was seen at bedside and he is accompanied with his . Upon seeing the patient he said he is doing well. He denies of any weakness numbness. Upper yesterday afternoon the patient was being walked to the bathroom he felt lightheaded and had an episode of loss of consciousness that lasted a few seconds. Then was back to baseline within 30 seconds. Patient did state that he felt lightheaded prior to the presentation. There is no jerking of any extremities no urinary or bowel incontinence no rolling of the eyes backwards. Per the patient's he was diagnosed with seizure in the hospital couple dayana rs back. She stated that he had the one episodes of shaking of all extremities. He does follow up with a neurologist as an outpatient. His episodes of loss of consciousness are there is an episode where he was on the toilet and the patient found him basically not responsive and that she found him clammy and but no jerk in of any of the extremities. There is also a few instances where patient was sitting down at home and that he loses consciousness. would like him on the floor and it would take him seconds to minutes to regain consciousness but no jerking of any extremities no rolling of the eye backwards or no urinary bowel incontinence. He has episodes where he feels lightheaded before loss of consciousness and happened a few times. He's been at [facility] for the last 2 weeks and the patient was on Keppra 250 mg in the morning and 500 mg at night per he had a total of about 5 episodes of loss of consciousness lasting from seconds to minutes he did have 1 episode of the shaking of all extremities that brought him here to the hospital and that was a prolonged period. But upon arrival was noted that he had a urinary tract infection as well as hyponatremia. Patient never had any prolonged EEG done as an outpatient. Objective - Vital Signs Vital signs: Vital Signs Temp 98 F 05/02/20 08:00 Pulse 74 05/02/20 08:00 Resp 16 05/02/20 08:00 BP 119/61 05/02/20 08:00 Pulse Ox 95 05/02/20 08:00 Intake & Output 05/01/20 05/02/20 05/02/20 18:59 06:59 18:59 Intake Total 600 770 Output Total 500 500 Balance 100 270 Weight 90.5 kg Intake: Intake, IV Titration 50 Amount cefTRIAXone 1 gm In 50 Sodium Chloride 0.9% 50 ml @ 100 mls/hr IVPB Q24HR [facility] Rx#:[id number] Oral 600 720 Output: Urine 500 500 Other: Voiding Method Indwelling Catheter Indwelling Catheter - Exam GENERAL: The patient is sitting on chair and is not in acute distress. CHEST: The heart rate is regular rate rhythm. No murmurs to auscultation. LUNG: Clear to auscultation bilaterally no wheezing noted throughout. Not labored breathing. ABDOMEN/GI: Bowel sounds present in all 4 quadrants. No tenderness to palpation throughout. NEUROLOGICAL: Higher mental function: The patient is awake, alert, oriented to self, place and time. Patient is following commands. No aphasia and no neglect. Cranial nerves: The pupils are round, equal and reactive to light and accommodation. Visual leon are full to confrontation throughout. Extraocular movement is intact no nystagmus is noted. Facial sensation is normal to touch throughout. The facial strength is there is left nasolabial flattening. Hearing is normal bilaterally to hand rub. Tongue is midline and moved [id number] without any difficulty. No dysarthria is noted. Shoulder shrug is normal bilaterally. Motor: Gait is defered. The strength is 5 over 5 throughout. Normal tone and bulk. No resting tremor or cogwheel rigidity. Cerebellum: Normal finger to nose bilaterally.. Sensation: Sensation is normal to touch throughout. Reflexes (right/left): 1+ throughout except at ankles 0-1 bilaterally. Plantars are downgoing bilaterally. - Labs CBC & Chem 7: 04/29/20 05:46 05/02/20 06:13 Labs: Abnormal Lab Results - Last 24 Hours (Table) 05/02/20 Range/Units 06:13 Sodium 129 L (137-145) mmol/L Creatinine 0.61 L (0.66-1.25) mg/dL Glucose 110 H (74-99) mg/dL Calcium 8.3 L (8.4-10.2) mg/dL Assessment and Plan Assessment: Mr. Rivera is a 84-year-old left-handed gentleman with medical history of TIA's, Parikinson disease, seizure/syncopal episodes, left facial droop in 2004 prostate cancer, Obstructive sleep apnea, DVT and recent left hip replacement (3 weeks ago) who was transferred from [facility] to rehab facility for concern of seizure. Patient has been having of numerous event of unresponsiveness in past one week. With one episode he did have tonic-clonic per medical record. On presentation patient has UTI and hyponatremia. He is back to baseline. Provoke seizure episode due to UTI and hyponatremia. Also rule out orthostatic hypotension and vasogal. Toxic-metabolic Encephalopathy due to hyponatremia and underlying UTI = Hyponatremia due to possible Thiazide use---improving UTI Hx of TIA Hx of Parkinson's disease DVT Plan: -Patient workup in the hospital consisted of CT of the head which was done on 04/28/2020 which was reported as cerebral atrophy and chronic small vessel ischemia. No acute intracranial abnormality. No change compared to that 06/20/2019. -On presentation the patient's blood cells 7.4. Sodium is 122 the repeat his sodium was 121. The glucose serum was 116 left acid of the vein was 1.8 the calcium was 8.8 ionized calcium is 4.6 Ammonia is less than 9. U/A on 04/28/20: color was yellow appears cloudy the leukocyte esterase was moderate the urine 1 blood cell is 45 EEG 04/29/20: Normal. Per the patient's the patient was on Keppra 250 mg in the morning and 500 at night prior to arrival to the hospital. Medical team modified the medication to 750 mg twice a day. In my opinion the patient should be on 500 mg twice a day and not more than that. If he did have seizure is provoked because of hyponatremia and urinary tract infection. Cannot rule out orthostatic hypotension as well as well as vasovagal syncope episodes since the patient's stated that he had an episode she was in the toilet and then use he was found passed out and he was clammy. Yesterday his episode the patient basically passed out while walking to the bathroom and he felt lightheaded prior to episode. No need to start the patient on an additional antiepileptic drug. Ordered orthostatic vitals. Consider getting tilt table test. If the patient continues to have these episodes with a negative orthostatic and the normal tilt table test and vasovagal was ruled out then the recommend prolonged EEG as an outpatient Regarding the management of the hyponatremia and the urinary tract infection will lead defer to the primary team. Upon discharge the patient's the need to follow his neurologist as an outpatient as well as the need to follow-up with his history of Parkinson's disease we'll defer to his outpatient neurologist. For the consult Dat Pedroza MD Neuro-hospitalist Time with Patient: Greater than 30
--- NOTE | 2020-05-02 10:51 | P.PN ---
Subjective Patient is seen in follow-up for hyponatremia. Sodium level up to 129 this morning. Oral intake is good. Has a Olivo catheter for urinary retention. Good UO. No edema. BP stable. No changes overnight. Vital signs are stable. General: The patient appeared well nourished and normally developed. HEENT: Head exam is unremarkable. Neck is without jugular venous distension. LUNGS: Lungs are clear to auscultation and percussion. Breath sounds decreased. HEART: Rate and Rhythm are regular. ABDOMEN: Soft, nontender. EXTREMITITES: No clubbing, cyanosis, or edema. Objective - Vital Signs Vital signs: Vital Signs Temp 98 F 05/02/20 08:00 Pulse 74 05/02/20 08:00 Resp 16 05/02/20 08:00 BP 119/61 05/02/20 08:00 Pulse Ox 95 05/02/20 08:00 Intake & Output 05/01/20 05/02/20 05/02/20 18:59 06:59 18:59 Intake Total 600 770 Output Total 500 500 Balance 100 270 Weight 90.5 kg Intake: Intake, IV Titration 50 Amount cefTRIAXone 1 gm In 50 Sodium Chloride 0.9% 50 ml @ 100 mls/hr IVPB Q24HR [facility] Rx#:[id number] Oral 600 720 Output: Urine 500 500 Other: Voiding Method Indwelling Catheter Indwelling Catheter - Labs CBC & Chem 7: 04/29/20 05:46 05/02/20 06:13 Labs: Abnormal Lab Results - Last 24 Hours (Table) 05/02/20 Range/Units 06:13 Sodium 129 L (137-145) mmol/L Creatinine 0.61 L (0.66-1.25) mg/dL Glucose 110 H (74-99) mg/dL Calcium 8.3 L (8.4-10.2) mg/dL Assessment and Plan Plan: assessment: 1. Hyponatremia secondary to SIADH secondary to Keppra and further worsened with the use of thiazide diuretic. Sodium level 122 on admission and is 129 today. It dropped initially with IV fluid administration. Urine osmolality 413. TSH elevated. 2. Benign hypertension. Controlled. 3. History of seizures. plan: Maintain salt tabs for now. Continue to monitor renal function and urine output. 1200 mL fluid restriction. Avoid thiazide diuretics. Anticipate discharge soon. Follow up outpatient in 1-2 weeks.
--- NOTE | 2020-05-02 13:31 | P.PN ---
Progress Note - Text Progress Note Date: 05/02/20 The patient says that he is feeling somewhat better. However he says he has not had a bowel movement in 4 days. His catheter will be removed in the morning for a voiding trial.
--- NOTE | 2020-05-02 14:54 | P.PN ---
Subjective Progress Note Date: 05/02/20 History of Present Illness This is an 84-year-old male patient of Dr. Lawson with past medical history of coronary artery disease, Parkinson's disease, recurrent headaches, severe PAD, generalized osteoarthritis, obstructive sleep apnea on CPAP. Patient recently underwent a total left hip arthroplasty with Dr. Horvath at [facility] and was subsequently admitted to [facility] on April 16 due to generalized debility and shortness of breath, found to have bilateral pulmonary embolism and large DVT in the right leg. Patient was discharge to [facility] for subacute rehab and was doing well over the weekend there was concern for seizure activity. Over the past week patient has had multiple episodes of similar events. He does have a history of seizure disorder the patient is having unresponsive episodes for approximately 25-30 minutes and also had episode yesterday afternoon of a tonic-clonic type activity patient apparently had 34 episodes over the past week and for most of them he becomes unresponsive lasting for about 30-40 seconds and then is able to return to baseline. Patient was brought into [facility] emergency center for evaluation. EKG normal sinus rhythm with no acute ST-T wave changes. Potassium 4.2, chloride 89, CO2 24, BUN 12 and creatinine 0.71, blood sugar 116. Lactic acid 1.8, ammonia level less than 9. Liver function tests normal. Patient was started on IV fluids, hydrochlorothiazide on hold. Patient admitted to the cardiac stepdown unit and consults requested with neurology and nephrology and consult added for urology regarding urinary retention and chronic Olivo catheter. 04/30: Patient has been afebrile, heart rate 72, blood pressure 121/67, pulse ox 93% on room air. Repeat blood work reveals sodium 124, potassium 4.0, chloride 93, CO2 27, BUN 10 and creatinine 0.56. Blood sugar 97. TSH 7.190 and free T4 2 0.25. We are planning to repeat TSH and free T4 and if still elevated, start levothyroxine 25 g daily. Patient has been seen by nephrology for SIADH. He has a Olivo catheter in for urinary retention which will remain. He is on a 1200 mL fluid restriction. Salt tablets have been ordered by nephrology. 05/01: The patient is seen today in follow-up. He denies any new complaints and states he is feeling well. Patient has been afebrile, heart rate 87, blood pressure 147/88, pulse ox 95% on room air. A repeat blood work reveals improving sodium at 128, potassium 4.2, chloride 96, CO2 26, BUN 10 and creatinine 0.6. COVID-[address] Reina has recommended continuing salt tablets and 1200 mL fluid restriction. Avoid thiazide diuretics. Patient is seen and followed by urology. This afternoon, patient had a syncopal episode with his nurse and at side. Patient was ambulating into the bathroom. His initial blood pressure 75/51. His blood pressures have been running normal since he has been admitted. Patient's states he has multiple episodes like this at [facility]. Today's episode possible vasovagal. 05/02: Patient's is here for maintaining and results of testing and prognosis and plan have been discussed with her and her at the bedside. Patient noted to have hematuria in his Olivo catheter and a consult with urology will be requested to review. Patient was already seen by Dr. Gaspar earlier this week for urinary retention. We are going to hold aspirin and Plavix. Patient will be continued on Xarelto only. Concerned that loss of consciousness yesterday was related to seizure activity and Keppra will be increased to 750 mg twice daily and baclofen added at 10 mg 3 times daily per patient/ request. Patient has not had any episodes overnight. Case discussed with Dr. Pedroza. Anticipate possible discharge to [facility] tomorrow. Review of Systems Constitutional: No fever, no chills, no night sweats. No weight change. No weakness, fatigue or lethargy. No daytime sleepiness. EENT: No headache. No blurred vision or double vision, no loss of vision. No loss of Hearing, no ringing in the ears, no dizziness. No nasal drainage or congestion. No epistaxis. No sore throat. Lungs: No shortness of breath, cough, no sputum production. No wheezing. Cardiovascular: No chest pain, no lower extremity edema. No palpitations. No paroxysmal nocturnal dyspnea. No orthopnea. No lightheadedness or dizziness. Reports syncopal episode yesterday with hypotension. Abdominal: No abdominal pain. No nausea, vomiting. No diarrhea. No constipation. No bloody or tarry stools.. No loss of appetite. Genitourinary: No dysuria, increased frequency, urgency. Reports urinary retention-Olivo. Musculoskeletal: No myalgias. No muscle weakness, reports gait dysfunction, no frequent falls. No back pain. No neck pain. Integumentary: No wounds, no lesions. No rash or pruritus. No unusual bruising. No change in hair or nails. Neurologic: No aphasia. No facial droop. No change in mentation. No head injury. No headache. No paralysis. No paresthesia. Psychiatric: No depression. No anxiety. No mood swings. Endocrine: No abnormal blood sugars. No weight change. No excessive sweating or thirst. No cold intolerance. Physical Examination Gen: This is an 84-year-old male. He is resting in bed and appears comfortable. HEENT: Head is atraumatic, normocephalic. Pupils equal, round. Sclerae is anicteric. NECK: Supple. No JVD. No lymphadenopathy. No thyromegaly. LUNGS: Clear to auscultation. No wheezes or rhonchi. No intercostal retractions. HEART: Regular rate and rhythm. Systolic ejection murmur. ABDOMEN: Soft. Bowel sounds are present. No masses. No tenderness. Olivo catheter draining clear liane urine. EXTREMITIES: No pedal edema. No calf tenderness. NEUROLOGICAL: Patient is awake, alert and oriented x3. Cranial nerves 2 through 12 are grossly intact. Assessment and Plan 1. Seizure/syncopal episodes. Neurology consult appreciated. CAT scan of the head did not show any acute intracranial abnormality. EEG normal. Patient is currently on Keppra increased to 750 mg twice daily. Neurology consult appreciated. 2. Hyponatremia with SIADH. Hydrochlorothiazide on hold, fluid restriction, nephrology consult. Sodium tablets, 1200 mL fluid restriction. 3. Acute catheter associated urinary tract infection. Continue ceftriaxone 4. Urinary retention. Urology consult. Patient has a chronic Olivo catheter in place. 5. Bilateral pulmonary embolism originating from DVT right leg. Continue Xarelto. 6. Recent history of left total knee arthroplasty. PT and OT. 7. Hypertension. Continue Coreg 25 mg twice daily, losartan 50 mg daily. Hold hydrochlorothiazide. 8. Hyperlipidemia. Continue Lipitor 40 mg daily, Zetia 10 mg daily. 9. History of CVA. Continue Plavix 75 mg daily, aspirin 81 mg daily, Lipitor 40 mg daily. 10. Coronary artery disease status post angioplasty and stent placement. Continue Plavix, aspirin, Lipitor. 11. Benign prostatic hypertrophy with urinary retention requiring straight cath and subsequent Olivo catheter placement on last admission. Voiding trial in the morning. 12. History of seizure disorder. Patient normally follows with Dr. Byrd. Continue Kecatracho. 13. Restless leg syndrome. Continue Mirapex 1 mg twice daily. 14. GI prophylaxis. Protonix. 15. DVT prophylaxis. Xarelto. 16. COVID-19 infection of present. 17. Syncopal episode on May 01, possible vasovagal with initially low blood pressure. 18. Hematuria. Urology to reevaluate. Plavix and aspirin discontinued. Patient continued on Xarelto only. CODE STATUS: Full code Discharge plan: [facility] on . Impression and plan of care have been directed as dictated by the signing physician. Suly Gallo nurse practitioner acting as scribe for signing physician. Objective - Vital Signs Vital signs: Vital Signs Temp 98 F 05/02/20 08:00 Pulse 74 05/02/20 08:00 Resp 16 05/02/20 08:00 BP 119/61 05/02/20 08:00 Pulse Ox 95 05/02/20 08:00 Intake & Output 05/01/20 05/02/20 05/02/20 18:59 06:59 18:59 Intake Total 600 770 Output Total 500 500 Balance 100 270 Weight 90.5 kg Intake: Intake, IV Titration 50 Amount cefTRIAXone 1 gm In 50 Sodium Chloride 0.9% 50 ml @ 100 mls/hr IVPB Q24HR [facility] Rx#:[id number] Oral 600 720 Output: Urine 500 500 Other: Voiding Method Indwelling Catheter Indwelling Catheter - Labs CBC & Chem 7: 04/29/20 05:46 05/02/20 06:13 Labs: Abnormal Lab Results - Last 24 Hours (Table) 05/02/20 Range/Units 06:13 Sodium 129 L (137-145) mmol/L Creatinine 0.61 L (0.66-1.25) mg/dL Glucose 110 H (74-99) mg/dL Calcium 8.3 L (8.4-10.2) mg/dL
[2020-05-02] MEDS: MAGNESIUM HYDROXIDE 2,400 MG/10 ML CUP PO PRN (17:59)
[2020-05-02] MEDS: FERROUS SULFATE 325 MG TAB PO SCH (17:59)
[2020-05-02] MEDS: CLOPIDOGREL 75 MG TAB PO SCH (18:49)
[2020-05-02] MEDS: levETIRAcetam 500 MG TAB PO SCH (18:49)
[2020-05-02] MEDS: ATORVASTATIN 40 MG TAB PO SCH (20:28)
[2020-05-02] MEDS: MONTELUKAST 10 MG TAB PO SCH (20:28)
[2020-05-02] MEDS: LATANOPROST 0.005% OPHTH DROPS 2.5 ML BTL BOTH EYES SCH (20:28)
[2020-05-03] MEDS: HYDROcodone/APAP 10-325MG 1 EACH TAB PO PRN (00:29)
[2020-05-03] MEDS: PANTOPRAZOLE 40 MG TABLET PO SCH (05:51)
--- NOTE | 2020-05-03 08:14 | P.DS ---
Providers Date of admission: 04/28/20 16:41 Expected date of discharge: 05/06/20 Attending physician: Sharri Nguyen Consults: 04/28/20 15:37 Consult Physician Routine Consulting Provider: Vicky Cartwright Consult Reason/Comments: syncope vs. seizure Do you want consulting provider notified?: Yes 04/28/20 16:42 Consult Physician Routine Consulting Provider: Graham Reina Consult Reason/Comments: hyponatremia Do you want consulting provider notified?: Yes 04/29/20 08:26 Consult Physician Routine Consulting Provider: Cristofer Gibbs Consult Reason/Comments: urinary retention Do you want consulting provider notified?: Yes 05/02/20 09:28 Consult Physician Routine Consulting Provider: Alok Gaspar Consult Reason/Comments: urinary retention, hematuria Do you want consulting provider notified?: Yes Primary care physician: [facility] Course: History of Present Illness This is an 84-year-old male patient of Dr. Lawson with past medical history of coronary artery disease, Parkinson's disease, recurrent headaches, severe PAD, generalized osteoarthritis, obstructive sleep apnea on CPAP. Patient recently underwent a total left hip arthroplasty with Dr. Horvath at [facility] and was subsequently admitted to [facility] on April 16 due to generalized debility and shortness of breath, found to have bilateral pulmonary embolism and large DVT in the right leg. Patient was discharge to [facility] for subacute rehab and was doing well over the weekend there was concern for seizure activity. Over the past week patient has had multiple episodes of similar events. He does have a history of seizure disorder the patient is having unresponsive episodes for approximately 25-30 minutes and also had episo de yesterday afternoon of a tonic-clonic type activity patient apparently had 34 episodes over the past week and for most of them he becomes unresponsive lasting for about 30-40 seconds and then is able to return to baseline. Patient was brought into [facility] emergency center for evaluation. EKG normal sinus rhythm with no acute ST-T wave changes. Potassium 4.2, chloride 89, CO2 24, BUN 12 and creatinine 0.71, blood sugar 116. Lactic acid 1.8, ammonia level less than 9. Liver function tests normal. Patient was started on IV fluids, hydrochlorothiazide on hold. Patient admitted to the cardiac stepdown unit and consults requested with neurology and nephrology and consult added for urology regarding urinary retention and chronic Olivo catheter. 04/30: Patient has been afebrile, heart rate 72, blood pressure 121/67, pulse ox 93% on room air. Repeat blood work reveals sodium 124, potassium 4.0, chloride 93, CO2 27, BUN 10 and creatinine 0.56. Blood sugar 97. TSH 7.190 and free T4 2 0.25. We are planning to repeat TSH and free T4 and if still elevated, start levothyroxine 25 g daily. Patient has been seen by nephrology for SIADH. He has a Olivo catheter in for urinary retention which will remain. He is on a 1200 mL fluid restriction. Salt tablets have been ordered by nephrology. 05/01: The patient is seen today in follow-up. He denies any new complaints and states he is feeling well. Patient has been afebrile, heart rate 87, blood pressure 147/88, pulse ox 95% on room air. A repeat blood work reveals improving sodium at 128, potassium 4.2, chloride 96, CO2 26, BUN 10 and creatinine 0.6. COVID-[address] Reina has recommended continuing salt tablets and 1200 mL fluid restriction. Avoid thiazide diuretics. Patient is seen and followed by urology. This afternoon, patient had a syncopal episode with his nurse and at side. Patient was ambulating into the bathroom. His initial blood pressure 75/51. His blood pressures have been running normal since he has been admitted. Patient's states he has multiple episodes like this at [facility]. Today's episode possible vasovagal. 05/02: Patient's is here for maintaining and results of testing and prognosis and plan have been discussed with her and her at the bedside. Patient noted to have hematuria in his Olivo catheter and a consult with urology will be requested to review. Patient was already seen by Dr. Gaspar earlier this week for urinary retention. We are going to hold aspirin and Plavix. Patient will be continued on Xarelto only. Concerned that loss of consciousness yesterday was related to seizure activity and Keppra will be increased to 750 mg twice daily and baclofen added at 10 mg 3 times daily per patient/ request. Patient has not had any episodes overnight. Case discussed with Dr. Pedroza. Anticipate possible discharge to [facility] tomorrow. 05/03: Patient had Olivo cath removed this morning for voiding trial and he was able to void on his own. Patient has worked with physical therapy this morning. He has had no further syncopal episodes. Discussed in detail with Dr. Pedroza unclear etiology, he feels that patient may be vasovagal in but orthostatics have been checked and are negative. Plan is to continue the Keppra at the current dose of 750 mg twice daily. Tilt table test has been ordered for today but before patient could go for testing, he developed another unresponsive episode that lasted at least 12 minutes, no seizure activity was noted. Blood pressure 86/50 with repeat at 90/50, blood sugar 187. IV fluid bolus was given. At the time of episode, patient was sitting in a chair. Dr. Scruggs was present. He has been afebrile, heart rate 71, blood pressure 128/67, pulse ox 96% on room air. Repeat blood work reveals sodium 134, potassium 3.7, chloride 102, CO2 27, BUN 11 creatinine 0.55. COVID-19 testing is negative. Discharge to [facility] will be held today and anticipate possible discharge on Wednesday. 05/04: Patient had episode yesterday thought to be a seizure activity seen by Dr. Pedroza with recommendations to an increase Keppra to 1000 mg twice daily and he ordered a 1 time dose of Vimpat 200 mg IV. We will switch Keppra to oral and added in. At 50 mg twice daily with plan to increase this to 100 mg twice daily on Wednesday. Patient has had no further seizure or syncopal episodes. Patient's is at bedside and they would really like him to go home versus going to subacute rehab but patient is quite lethargic. This may be related to Ativan given yesterday but we'll plan to monitor over the weekend and determine discharge plan on Wednesday. Patient has been afebrile, heart rate 78, blood pressure 122/64, pulse ox 98% on 2 L nasal cannula. Repeat blood work reveals WBC 4.1, hemoglobin 7.9, platelet count 298. Sodium 135, potassium 4.0, chloride 105, CO2 26, BUN 20 creatinine 0.7. 05/05: Patient was having difficulty swallowing yesterday was made nothing by mouth, antiseizure medications changed to IV. Patient subsequently developed blood in his stools and due to urinary retention Olivo catheter was replaced and patient has hematuria. Xarelto was then placed on hold. IV fluids resumed at 75 mL per hour. Consult has been added for GI. Lab work this morning revealed hemoglobin of 7.3 and patient will be transfused 1 unit of packed RBCs. Sodium is 137, potassium 3.9, chloride 106, CO2 26, BUN 18 and creatinine 0.54. Patient has been afebrile, heart rate 75, blood pressure 140/80, pulse ox 90% on 2 L nasal cannula. 05/06: Patient was seen by Dr. Isaacs yesterday with plan for conservative management. Patient has no bloody tarry stools overnight. A Olivo catheter has clear to an urine. Patient was able to eat and take his medications later in he day yesterday. We do have speech evaluation scheduled for today. Speech therapy has recommended regular diet with thin liquids. Repeat blood work reveals hemoglobin of 8.8. BUN 12 and creatinine 0.46, sodium 136. Patient will be resumed on Xarelto 20 mg daily. Patient will be returned to [facility] today in stable condition. Repeat Covid 19 test is negative. Assessment and Plan 1. Seizure episodes. 2. Hyponatremia with SIADH. 3. Acute catheter associated urinary tract infection. 4. Urinary retention. 5. Bilateral pulmonary embolism originating from DVT right leg. 6. Recent history of left total knee arthroplasty. 7. Hypertension. 8. Hyperlipidemia. 9. History of CVA. 10. Coronary artery disease status post angioplasty and stent placement. 11. Benign prostatic hypertrophy with urinary retention. 12. History of seizure disorder. 13. Restless leg syndrome. 14. Syncopal episode on May 01, possible vasovagal with initially low blood pressure. 15. Hematuria. 16. Seizurel episode on May 01. 17. Hematuria. 18. Aspiration without pneumonia or bronchitis. 19. Acute GI bleed with acute blood loss anemia. 20. Acute blood loss anemia secondary to hematuria and GI bleed. Patient be transfused 1 unit packed RBCs. 21. COVID-19 infection not present. Discharge plan: [facility] under the care of Dr. Lawson Impression and plan of care have been directed as dictated by the signing physician. Suly Gallo nurse practitioner acting as scribe for signing physician. Patient Condition at Discharge: Good Plan - Discharge Summary Discharge Rx Participant: No New Discharge Prescriptions: New Rivaroxaban [Xarelto] 20 mg PO DAILY #30 tab Sodium Chloride Tab 1 gm PO DAILY tab levETIRAcetam [Keppra] 1,000 mg PO Q12HR #60 tab Lacosamide [Vimpat] 100 mg PO BID 3 Days #6 tab Continue Montelukast [Singulair] 10 mg PO HS@2100 Cholecalciferol [Vitamin D3 (25 Mcg = 1000 Iu)] 5,000 unit PO DAILY@1700 Ferrous Sulfate [Iron (65 MG Elemental)] 325 mg PO DAILY@1700 carvediloL [Carvedilol] 25 mg PO BID@0800,1700 Brimonidine Tartrate/Timolol [Combigan 0.2%-0.5% Eye Drops] 1 drop LEFT EYE BID@0800,1700 Rosuvastatin Calcium 20 mg PO HS@2100 Cyanocobalamin (Vitamin B-12) [Vitamin B-12] 2,500 mcg PO DAILY@0800 Ezetimibe [Zetia] 10 mg PO DAILY@0800 Latanoprost/Pf [Latanoprost 0.005% Eye Drop] 1 drop BOTH EYES HS@2100 Baclofen 10 mg PO TID PRN PRN Reason: Muscle Spasm Magnesium Hydroxide [Milk of Magnesia Concentrate] 2,400 mg PO DAILY PRN ml PRN Reason: Constipation bisacodyL [Dulcolax] 10 mg RECTAL Q24H PRN PRN Reason: Constipation Losartan Potassium 50 mg PO DAILY@0800 methocarbamoL [Robaxin] 750 mg PO TID PRN PRN Reason: muscle spasm Na Phos,M-B/Na Phos,Di-Ba [Fleet Adult] 133 ml RECTAL DAILY PRN PRN Reason: Constipation Pantoprazole [Protonix] 40 mg PO DAILY@0600 Pramipexole [Mirapex] 1 mg PO BID@0800,1700 Sennosides-Docusate Sodium [Senokot-S] 1 tab PO BID@0800,1700 Tamsulosin [Flomax] 0.4 mg PO BID@0800,1700 Buta/APAP/Caf/Cod 50-547-46-30 [Fioricet w/Cod 50-639-16-30MG] 1 - 2 cap PO Q4H PRN #18 cap MDD 4 caps PRN Reason: Migraine Headache HYDROcodone/APAP 10-325MG [[place] 10-325] 1 tab PO Q5H PRN #12 tab PRN Reason: Pain Discontinued cloNIDine HCL [Catapres] 0.1 mg PO DAILY@1700 hydroCHLOROthiazide 25 mg PO DAILY@0800 Clopidogrel [Plavix] 75 mg PO DAILY@0800 amLODIPine [Norvasc] 2.5 mg PO BID@0800,1700 Aspirin 81 mg PO DAILY@1700 levETIRAcetam [Keppra] 500 mg PO DAILY@0800 levETIRAcetam [Keppra] 750 mg PO DAILY@170 levoFLOXacin 500 mg PO DAILY@213 Rivaroxaban [Xarelto] 15 mg PO BID@0800,1700 Discharge Medication List Montelukast [Singulair] 10 mg PO HS@209909/19/15 [History] Cholecalciferol [Vitamin D3 (25 Mcg = 1000 Iu)] 5,000 unit PO DAILY@169903/05/17 [History] Ferrous Sulfate [Iron (65 MG Elemental)] 325 mg PO DAILY@169907/14/18 [History] Brimonidine Tartrate/Timolol [Combigan 0.2%-0.5% Eye Drops] 1 drop LEFT EYE BID@0800,169908/23/18 [History] carvediloL [Carvedilol] 25 mg PO BID@0800,169908/23/18 [History] Baclofen 10 mg PO TID PRN 04/16/20 [History] Cyanocobalamin (Vitamin B-12) [Vitamin B-12] 2,500 mcg PO DAILY@0804/16/20 [History] Ezetimibe [Zetia] 10 mg PO DAILY@79904/16/20 [History] Latanoprost/Pf [Latanoprost 0.005% Eye Drop] 1 drop BOTH EYES HS@209904/16/20 [History] Rosuvastatin Calcium 20 mg PO HS@209904/16/20 [History] Magnesium Hydroxide [Milk of Magnesia Concentrate] 2,400 mg PO DAILY PRN ml 04/18/20 [Rx] Losartan Potassium 50 mg PO DAILY@0804/28/20 [History] Na Phos,M-B/Na Phos,Di-Ba [Fleet Adult] 133 ml RECTAL DAILY PRN 04/28/20 [History] Pantoprazole [Protonix] 40 mg PO DAILY@0600 04/28/20 [History] Pramipexole [Mirapex] 1 mg PO BID@0800,1700 04/28/20 [History] Sennosides-Docusate Sodium [Senokot-S] 1 tab PO BID@0800,1700 04/28/20 [History] Tamsulosin [Flomax] 0.4 mg PO BID@0800,1700 04/28/20 [History] bisacodyL [Dulcolax] 10 mg RECTAL Q24H PRN 04/28/20 [History] methocarbamoL [Robaxin] 750 mg PO TID PRN 04/28/20 [History] Buta/APAP/Caf/Cod 77-027-00-30 [Fioricet w/Cod 14-779-58-30MG] 1 - 2 cap PO Q4H PRN #18 cap MDD 4 caps 05/03/20 [Rx] HYDROcodone/APAP 10-325MG [[place] 10-325] 1 tab PO Q5H PRN #12 tab 05/03/20 [Rx] Rivaroxaban [Xarelto] 20 mg PO DAILY #30 tab 05/03/20 [Rx] Sodium Chloride Tab 1 gm PO DAILY tab 05/03/20 [Rx] Lacosamide [Vimpat] 100 mg PO BID 3 Days #6 tab 05/06/20 [Rx] levETIRAcetam [Keppra] 1,000 mg PO Q12HR #60 tab 05/06/20 [Rx] Follow up Appointment(s)/Referral(s): Olman Byrd DO [STAFF PHYSICIAN] - 1 Week Graham Reina DO [STAFF PHYSICIAN] - 1 Week Louis Lawson MD [Primary Care Provider] - 1 Week (at [facility]) Alok Gaspar MD [STAFF PHYSICIAN] - 1 Week Ambulatory/Diagnostic Orders: Basic Metabolic Panel [LAB.AMB] Location: None Selected Activity/Diet/Wound Care/Special Instructions: 1200 ml fluid restriction. No thiazide diuretics. Discharge Disposition: TRANSFER TO SNF/F
[2020-05-03] MEDS: carvediloL 12.5 MG TAB PO SCH ×2 (08:19→16:19)
[2020-05-03] MEDS: CYANOCOBALAMIN 500 MCG TAB PO SCH (08:19)
[2020-05-03] MEDS: SENNOSIDES-DOCUSATE SODIUM 1 EACH TAB PO SCH ×2 (08:19→16:19)
[2020-05-03] MEDS: TAMSULOSIN 0.4 MG CAP.ER.24H PO SCH ×2 (08:20→16:20)
[2020-05-03] MEDS: LOSARTAN 50 MG TAB PO SCH (08:20)
[2020-05-03] MEDS: BACLOFEN 10 MG TAB PO SCH ×3 (08:22→21:08)
[2020-05-03] MEDS: RIVAROXABAN 15 MG TAB PO SCH ×2 (08:22→21:07)
[2020-05-03] MEDS: TIMOLOL 0.5% OPHTH DROPS 5 ML BTL LEFT EYE SCH ×2 (08:23→16:20)
[2020-05-03] MEDS: EZETIMIBE 10 MG TAB PO SCH (08:23)
[2020-05-03] MEDS: SODIUM CHLORIDE TAB 1 GM TAB PO SCH (08:23)
[2020-05-03] MEDS: BRIMONIDINE TARTRATE 0.2% DROPS 5 ML BTL LEFT EYE SCH ×2 (08:24→16:19)
[2020-05-03 08:38] LABS: African American GFR (CKD) >90 (>60 ml/min/1.73 sqM); Anion Gap 5 mmol/L; Blood Urea Nitrogen 11 mg/dL (9-20); Calcium 8.4 mg/dL (8.4-10.2); Carbon Dioxide 27 mmol/L (22-30); Chloride 102 mmol/L (98-107); Glucose 111 mg/dL (74-99); Magnesium 2.1 mg/dL (1.6-2.3); Non-African American GFR(CKD) >90 (>60 ml/min/1.73 sqM); Potassium 3.7 mmol/L (3.5-5.1); Sodium 134 mmol/L (137-145)
--- NOTE | 2020-05-03 11:12 | P.PN ---
Subjective Patient is seen in follow-up for hyponatremia. Sodium level up to 134 this morning. Oral intake is good. Has a Olivo catheter for urinary retention. Good UO. No edema. BP stable. No changes overnight. Vital signs are stable. General: The patient appeared well nourished and normally developed. HEENT: Head exam is unremarkable. Neck is without jugular venous distension. LUNGS: Lungs are clear to auscultation and percussion. Breath sounds decreased. HEART: Rate and Rhythm are regular. ABDOMEN: Soft, nontender. EXTREMITITES: No clubbing, cyanosis, or edema. Objective - Vital Signs Vital signs: Vital Signs Temp 98.1 F 05/03/20 08:00 Pulse 71 05/03/20 08:00 Resp 16 05/03/20 08:00 BP 128/67 05/03/20 08:00 Pulse Ox 96 05/03/20 08:00 Intake & Output 05/02/20 05/03/20 05/03/20 18:59 06:59 18:59 Intake Total 1080 Output Total 1225 Balance 1080 -1225 Weight 91.2 kg Intake: Oral 1080 Output: Urine 1225 Other: Voiding Method Indwelling Catheter Indwelling Catheter # Bowel Movements 1 - Labs CBC & Chem 7: 04/29/20 05:46 05/03/20 07:40 Labs: Abnormal Lab Results - Last 24 Hours (Table) 05/03/20 Range/Units 07:40 Sodium 134 L (137-145) mmol/L Creatinine 0.55 L (0.66-1.25) mg/dL Glucose 111 H (74-99) mg/dL Assessment and Plan Plan: assessment: 1. Hyponatremia secondary to SIADH secondary to Keppra and further worsened with the use of thiazide diuretic. Sodium level 122 on admission and is 134 today. It dropped initially with IV fluid administration. Urine osmolality 413. TSH elevated. 2. Benign hypertension. Controlled. 3. History of seizures. plan: Decreased sodium chloride tablet to one daily. Continue to monitor renal function and urine output. 1200 mL fluid restriction. Avoid thiazide diuretics. Anticipate discharge soon. Follow up outpatient in 1-2 weeks.
[2020-05-03 12:11] LABS: Glucose,Whole Blood 187 mg/dL (75-99)
--- NOTE | 2020-05-03 12:55 | P.PN ---
Subjective Progress Note Date: 05/03/20 History of Present Illness This is an 84-year-old male patient of Dr. Lawson with past medical history of coronary artery disease, Parkinson's disease, recurrent headaches, severe PAD, generalized osteoarthritis, obstructive sleep apnea on CPAP. Patient recently underwent a total left hip arthroplasty with Dr. Horvath at [facility] and was subsequently admitted to [facility] on April 16 due to generalized debility and shortness of breath, found to have bilateral pulmonary embolism and large DVT in the right leg. Patient was discharge to [facility] for subacute rehab and was doing well over the weekend there was concern for seizure activity. Over the past week patient has had multiple episodes of similar events. He does have a history of seizure disorder the patient is having unresponsive episodes for approximately 25-30 minutes and also had episode yesterday afternoon of a tonic-clonic type activity patient apparently had 34 episodes over the past week and for most of them he becomes unresponsive lasting for about 30-40 seconds and then is able to return to baseline. Patient was brought into [facility] emergency center for evaluation. EKG normal sinus rhythm with no acute ST-T wave changes. Potassium 4.2, chloride 89, CO2 24, BUN 12 and creatinine 0.71, blood sugar 116. Lactic acid 1.8, ammonia level less than 9. Liver function tests normal. Patient was started on IV fluids, hydrochlorothiazide on hold. Patient admitted to the cardiac stepdown unit and consults requested with neurology and nephrology and consult added for urology regarding urinary retention and chronic Olivo catheter. 04/30: Patient has been afebrile, heart rate 72, blood pressure 121/67, pulse ox 93% on room air. Repeat blood work reveals sodium 124, potassium 4.0, chloride 93, CO2 27, BUN 10 and creatinine 0.56. Blood sugar 97. TSH 7.190 and free T4 2 0.25. We are planning to repeat TSH and free T4 and if still elevated, start levothyroxine 25 g daily. Patient has been seen by nephrology for SIADH. He has a Olivo catheter in for urinary retention which will remain. He is on a 1200 mL fluid restriction. Salt tablets have been ordered by nephrology. 05/01: The patient is seen today in follow-up. He denies any new complaints and states he is feeling well. Patient has been afebrile, heart rate 87, blood pressure 147/88, pulse ox 95% on room air. A repeat blood work reveals improving sodium at 128, potassium 4.2, chloride 96, CO2 26, BUN 10 and creatinine 0.6. COVID-[address] Reina has recommended continuing salt tablets and 1200 mL fluid restriction. Avoid thiazide diuretics. Patient is seen and followed by urology. This afternoon, patient had a syncopal episode with his nurse and at side. Patient was ambulating into the bathroom. His initial blood pressure 75/51. His blood pressures have been running normal since he has been admitted. Patient's states he has multiple episodes like this at [facility]. Today's episode possible vasovagal. 05/02: Patient's is here for maintaining and results of testing and prognosis and plan have been discussed with her and her at the bedside. Patient noted to have hematuria in his Olivo catheter and a consult with urology will be requested to review. Patient was already seen by Dr. Gaspar earlier this week for urinary retention. We are going to hold aspirin and Plavix. Patient will be continued on Xarelto only. Concerned that loss of consciousness yesterday was related to seizure activity and Keppra will be increased to 750 mg twice daily and baclofen added at 10 mg 3 times daily per patient/ request. Patient has not had any episodes overnight. Case discussed with Dr. Pedroza. Anticipate possible discharge to [facility] tomorrow. 05/03: Patient had Olivo cath removed this morning for voiding trial and he was able to void on his own. Patient has worked with physical therapy this morning. He has had no further syncopal episodes. Discussed in detail with Dr. Pedroza unclear etiology, he feels that patient may be vasovagal in but orthostatics have been checked and are negative. Plan is to continue the Keppra at the current dose of 750 mg twice daily. Tilt table test has been ordered for today but before patient could go for testing, he developed another unresponsive episode that lasted at least 12 minutes, no seizure activity was noted. Blood pressure 86/50 with repeat at 90/50, blood sugar 187. IV fluid bolus was given. At the time of episode, patient was sitting in a chair. Dr. Scruggs was present. He has been afebrile, heart rate 71, blood pressure 128/67, pulse ox 96% on room air. Repeat blood work reveals sodium 134, potassium 3.7, chloride 102, CO2 27, BUN 11 creatinine 0.55. COVID-19 testing is negative. Discharge to [facility] will be held today and anticipate possible discharge on Wednesday. Review of Systems Constitutional: No fever, no chills, no night sweats. No weight change. No weakness, fatigue or lethargy. No daytime sleepiness. EENT: No headache. No blurred vision or double vision, no loss of vision. No loss of Hearing, no ringing in the ears, no dizziness. No nasal drainage or congestion. No epistaxis. No sore throat. Lungs: No shortness of breath, cough, no sputum production. No wheezing. Cardiovascular: No chest pain, no lower extremity edema. No palpitations. No paroxysmal nocturnal dyspnea. No orthopnea. No lightheadedness or dizziness. Reports syncopal episode today with hypotension. Abdominal: No abdominal pain. No nausea, vomiting. No diarrhea. No constipation. No bloody or tarry stools.. No loss of appetite. Genitourinary: No dysuria, increased frequency, urgency. Reports urinary retention-Olivo. Musculoskeletal: No myalgias. No muscle weakness, reports gait dysfunction, no frequent falls. No back pain. No neck pain. Integumentary: No wounds, no lesions. No rash or pruritus. No unusual bruising. No change in hair or nails. Neurologic: No aphasia. No facial droop. No change in mentation. No head injury. No headache. No paralysis. No paresthesia. Psychiatric: No depression. No anxiety. No mood swings. Endocrine: No abnormal blood sugars. No weight change. No excessive sweating or thirst. No cold intolerance. Physical Examination Gen: This is an 84-year-old male. He is resting in bed and appears comfortable. HEENT: Head is atraumatic, normocephalic. Pupils equal, round. Sclerae is anicteric. NECK: Supple. No JVD. No lymphadenopathy. No thyromegaly. LUNGS: Clear to auscultation. No wheezes or rhonchi. No intercostal retractions . HEART: Regular rate and rhythm. Systolic ejection murmur. ABDOMEN: Soft. Bowel sounds are present. No masses. No tenderness. EXTREMITIES: No pedal edema. No calf tenderness. NEUROLOGICAL: Patient is awake, alert and oriented x3. Cranial nerves 2 through 12 are grossly intact. Assessment and Plan 1. Seizure/syncopal episodes of unclear etiology. Rule out seizure activity, orthostatic hypotension. Neurology consult appreciated. CAT scan of the head did not show any acute intracranial abnormality. EEG normal. Continue Keppra 750 mg twice daily. Neurology consult appreciated. 2. Hyponatremia with SIADH. Hydrochlorothiazide on hold, fluid restriction, nephrology consult. Sodium tablets daily, 1200 mL fluid restriction. 3. Acute catheter associated urinary tract infection. Continue ceftriaxone 4. Urinary retention. Urology consult. Patient has a chronic Olivo catheter in place. Voiding trial. 5. Bilateral pulmonary embolism originating from DVT right leg. Continue Xarelto. 6. Recent history of left total knee arthroplasty. PT and OT. 7. Hypertension. Continue Coreg 25 mg twice daily, losartan 50 mg daily. Hold hydrochlorothiazide. 8. Hyperlipidemia. Continue Lipitor 40 mg daily, Zetia 10 mg daily. 9. History of CVA. Continue Plavix 75 mg daily, aspirin 81 mg daily, Lipitor 40 mg daily. 10. Coronary artery disease status post angioplasty and stent placement. Continue Plavix, aspirin, Lipitor. 11. Benign prostatic hypertrophy with urinary retention requiring straight cath and subsequent Olivo catheter placement on last admission. Voiding trial. 12. History of seizure disorder. Patient normally follows with Dr. Byrd. Continue Keppra. 13. Restless leg syndrome. Continue Mirapex 1 mg twice daily. 14. GI prophylaxis. Protonix. 15. DVT prophylaxis. Xarelto. 16. COVID-19 infection of present. 17. Syncopal episode on May 01, possible vasovagal with initially low blood pressure. 18. Hematuria. Urology to reevaluate. Plavix and aspirin discontinued. Patient continued on Xarelto only. CODE STATUS: Full code Discharge plan: on Wednesday. Impression and plan of care have been directed as dictated by the signing physician. Suly Gallo nurse practitioner acting as scribe for signing physician. Objective - Vital Signs Vital signs: Vital Signs Temp 98.1 F 05/03/20 08:00 Pulse 71 05/03/20 08:00 Resp 16 05/03/20 08:00 BP 128/67 05/03/20 08:00 Pulse Ox 96 05/03/20 08:00 Intake & Output 05/02/20 05/03/20 05/03/20 18:59 06:59 18:59 Intake Total 1080 Output Total 1225 Balance 1080 -1225 Weight 91.2 kg Intake: Oral 1080 Output: Urine 1225 Other: Voiding Method Indwelling Catheter Indwelling Catheter # Bowel Movements 1 - Labs CBC & Chem 7: 04/29/20 05:46 05/03/20 07:40 Labs: Abnormal Lab Results - Last 24 Hours (Table) 05/03/20 Range/Units 07:40 Sodium 134 L (137-145) mmol/L Creatinine 0.55 L (0.66-1.25) mg/dL Glucose 111 H (74-99) mg/dL
[2020-05-03] MEDS ORDERED: DEXTROSE 5%-0.9% NACL 1,000 ML IV SCH (13:15)
[2020-05-03] MEDS: LORazepam 2 MG/ML INJ IV STA ×2 (14:12→14:17)
[2020-05-03] MEDS ORDERED: levETIRAcetam IV 1,000 MG in SALINE 1 100ML.BAG IVPB STA ×2 (14:36→14:39)
[2020-05-03] MEDS ORDERED: LACOSAMIDE IV 200 MG in SODIUM CHLORIDE 0.9% 50 ML IVPB STA (14:47)
[2020-05-03] MEDS: FERROUS SULFATE 325 MG TAB PO SCH (16:19)
--- NOTE | 2020-05-03 18:06 | EEG ---
ELECTROENCEPHALOGRAM REPORT DATE OF SERVICE: 05/03/2020 CLINICAL HISTORY: This is an 84-year-old gentleman with history of seizure, Parkinson disease that presented from rehab facility and admitted to the hospital on 04/28/2020 for episodes of unresponsiveness as well as a seizure. Today, the patient was found to be unresponsive at 11:40am without any jerking episode. This EEG was obtained to evaluate for seizure and epileptiform activity. RELEVANT MEDICATIONS: The patient is on Keppra 750 mg twice a day. EEG TYPE: A 21 channel 48 minute EEG was performed with video using the 10/20 electrode placement system. DESCRIPTION: There is no posterior dominant rhythm. The background consisted of diffuse 2-3 hertz [id number] voltage that is arrhythmic. There is in no physiological stage sleep II architecture seen. Interictal/ictal. There were low to moderate voltage of 1-2 Hz of sharp with slow activity over the bilateral central derivatives, and seems there is evolution to somewhat sharply contoured moderate voltage 6-7 Hz theta activity that were arrhythmic Seems to be origination over the right central derivatives then left. Clinically with these episodes, patient had repeated right shoulder jerk and bilateral lower extremities jerks then later only left lower extremity jerk. 1mg Ativan was given at 14:13 then second dose at 14:18. The sharply contoured appeared improved at 14:22. During patient jerks there were myogenic artifacts obscuring the study. ACTIVATION PROCEDURE: Photic stimulation was performed and there was no photic drive. Hyperventilation was not performed because of the patient's clinical history. DIAGNOSIS: This is an abnormal EEG study due to: 1. Seizure. 2. Background slowing. CLINICAL INTERPRETATION: This is an abnormal study. From the EEG study looks like the patient had a seizure and it seems from the right central derivatives of the brain. After the patient received 2 mg Ativan there was improvement and the seizure was resolved. The background slowing is suggestive of moderate to severe encephalopathy. The primary team was notified of the patient's finding. Also recommend modification of his antiepileptic. Clinical correlation is recommended. RECOMMENDATION: If the patient's condition does not improve, recommend long-term EEG. MMODL / IJN: [id number] / MTDD
[2020-05-03] MEDS ORDERED: LACOSAMIDE IV 50 MG in SODIUM CHLORIDE 0.9% 50 ML IVPB SCH (21:00)
[2020-05-03] MEDS ORDERED: levETIRAcetam IV 1,000 MG in SALINE 1 100ML.BAG IVPB SCH (21:00)
[2020-05-03] MEDS ORDERED: levETIRAcetam 500 MG TAB PO SCH (21:00)
[2020-05-03] MEDS: LATANOPROST 0.005% OPHTH DROPS 2.5 ML BTL BOTH EYES SCH (21:07)
[2020-05-03] MEDS: ATORVASTATIN 40 MG TAB PO SCH (21:07)
[2020-05-03] MEDS: MONTELUKAST 10 MG TAB PO SCH (21:08)
--- NOTE | 2020-05-03 22:16 | P.PN ---
Subjective Progress Note Date: 05/03/20 Principal diagnosis: Provoked seizure UTI Hyponatremia Today around 1140 the patient was about to be taken for a tilt table test and was found on the chair unresponsive. He didn't have any jerking episodes. No foaming around the mouth. His blood pressure was checked and showed that his blood pressure was 72/50 heart rate of 60. Sugar was checked and was in the 170s. Patient then was placed on his bed and that he continued to be unresponsive. IV fluid was started immediately bolus. Objective - Vital Signs Vital signs: Vital Signs Temp 98.1 F 05/03/20 08:00 Pulse 71 05/03/20 08:00 Resp 16 05/03/20 08:00 BP 128/67 05/03/20 08:00 Pulse Ox 96 05/03/20 08:00 Intake & Output 05/02/20 05/03/20 05/03/20 18:59 06:59 18:59 Intake Total 1080 Output Total 1225 Balance 1080 -1225 Weight 91.2 kg Intake: Oral 1080 Output: Urine 1225 Other: Voiding Method Indwelling Catheter Indwelling Catheter # Bowel Movements 1 - Exam Cardiac as regular rate rhythm. Respiratory is clear to auscultation throughout. NEUROLOGICAL: Limited because of patient condition. The patient's primary gaze was in the middle eyes pupils were constricted about 1-2 mm and sluggishly reactive to light. No spontaneous movement of any his extremities. As with painful stimuli the patient does have the grimacing of the face as well as he does attempt to withdraw all extremities. - Labs CBC & Chem 7: 04/29/20 05:46 05/03/20 07:40 Labs: Abnormal Lab Results - Last 24 Hours (Table) 05/03/20 Range/Units 07:40 Sodium 134 L (137-145) mmol/L Creatinine 0.55 L (0.66-1.25) mg/dL Glucose 111 H (74-99) mg/dL Assessment and Plan Assessment: Mr. Rivera is a 84-year-old left-handed gentleman with medical history of TIA's, Parikinson disease, seizure/syncopal episodes, left facial droop in 2004 prostate cancer, Obstructive sleep apnea, DVT and recent left hip replacement (3 weeks ago) who was transferred from [facility] to rehab facility for concern of seizure. Patient has been having of numerous event of unresponsiveness in past one week. With one episode he did have tonic-clonic per medical record. On presentation patient has UTI and hyponatremia. He is back to baseline. Recurrent episode of loss of consciousness: Possible seizure. also possibly cardiac in origin. Provoke seizure episode due to UTI and hyponatremia. Toxic-metabolic Encephalopathy due to hyponatremia and underlying UTI --improving Hyponatremia due to possible Thiazide use---improving UTI Hx of TIA Hx of Parkinson's disease DVT Plan: -Patient workup in the hospital consisted of CT of the head which was done on 04/28/2020 which was reported as cerebral atrophy and chronic small vessel ischemia. No acute intracranial abnormality. No change compared to that 06/20/2019. -On presentation the patient's blood cells 7.4. Sodium is 122 the repeat his sodium was 121. The glucose serum was 116 left acid of the vein was 1.8 the calcium was 8.8 ionized calcium is 4.6 Ammonia is less than 9. U/A on 04/28/20: color was yellow appears cloudy the leukocyte esterase was moderate the urine 1 blood cell is 45 EEG 04/29/20: Normal. Patient is on Keppra 750 mg twice a day and to be continued. Because of the episode of being found unresponsive at 11:40am then we'll get a stat EEG. I notified Dr. Lawson that patient did have a seizure and increased Keppra from 750mg bid to 1000mg bid and started patient on Vimpat 50mg bid. Also loaded patient on Keppra 1gm and Vimpat 200mg once. I notified the primary team if patient condition does not improve then to consider transfering the patient for [facility] EEG. I checked back on the patient later in the night: The patient was more responsive and stated his name and his name as well following commands but was still somewhat drowsy. Dat Pedroza MD Neuro-hospitalist Time with Patient: Greater than 30
[2020-05-04] MEDS ORDERED: LACOSAMIDE IV 50 MG in SODIUM CHLORIDE 0.9% 50 ML IVPB SCH ×3 (07:00)
[2020-05-04 08:29] LABS: Basophils # (A) 0.1 k/uL (0-0.2); Basophils % (A) 1 %; Eosinophils # (A) 0.2 k/uL (0-0.7); Eosinophils % (A) 4 %; HCT 25.3 % (39.0-53.0); HGB 7.9 gm/dL (13.0-17.5); Hypochromasia Slight; Lymphocytes # (A) 0.7 k/uL (1.0-4.8); Lymphocytes % (A) 18 %; MCH 29.1 pg (25.0-35.0); MCHC 31.2 g/dL (31.0-37.0); Monocytes # (A) 0.2 k/uL (0-1.0); Monocytes % (A) 4 %; Neutrophils # (A) 2.9 k/uL (1.3-7.7); Neutrophils % (A) 72 %; Platelet Count 298 k/uL (150-450); RBC 2.71 m/uL (4.30-5.90); RDW 15.5 % (11.5-15.5); WBC 4.1 k/uL (3.8-10.6)
[2020-05-04 08:32] LABS: African American GFR (CKD) >90 (>60 ml/min/1.73 sqM); Anion Gap 4 mmol/L; Blood Urea Nitrogen 20 mg/dL (9-20); Calcium 8.7 mg/dL (8.4-10.2); Carbon Dioxide 26 mmol/L (22-30); Chloride 105 mmol/L (98-107); Glucose 119 mg/dL (74-99); Non-African American GFR(CKD) 88 (>60 ml/min/1.73 sqM); Sodium 135 mmol/L (137-145)
[2020-05-04 08:37] LABS: MCV 93.5 fL (80.0-100.0)
[2020-05-04] MEDS: SENNOSIDES-DOCUSATE SODIUM 1 EACH TAB PO SCH ×2 (09:25→18:32)
[2020-05-04] MEDS: levETIRAcetam 500 MG TAB PO SCH ×2 (09:25→10:47)
[2020-05-04] MEDS: TAMSULOSIN 0.4 MG CAP.ER.24H PO SCH ×2 (09:25→18:32)
[2020-05-04] MEDS: CYANOCOBALAMIN 500 MCG TAB PO SCH (09:26)
[2020-05-04] MEDS: carvediloL 12.5 MG TAB PO SCH ×2 (09:26→18:32)
[2020-05-04] MEDS: RIVAROXABAN 15 MG TAB PO SCH (09:26)
[2020-05-04] MEDS: PANTOPRAZOLE 40 MG TABLET PO SCH (09:26)
[2020-05-04] MEDS: EZETIMIBE 10 MG TAB PO SCH (09:27)
[2020-05-04] MEDS: SODIUM CHLORIDE TAB 1 GM TAB PO SCH (09:27)
[2020-05-04] MEDS: BACLOFEN 10 MG TAB PO SCH ×3 (09:27→21:46)
[2020-05-04] MEDS: TIMOLOL 0.5% OPHTH DROPS 5 ML BTL LEFT EYE SCH ×2 (09:28→17:17)
[2020-05-04] MEDS: BRIMONIDINE TARTRATE 0.2% DROPS 5 ML BTL LEFT EYE SCH ×2 (09:28→17:17)
[2020-05-04] MEDS ORDERED: levETIRAcetam ORAL SOLN 500 MG/5 ML CUP PO SCH (10:00)
[2020-05-04] MEDS ORDERED: levETIRAcetam ORAL SOLN 500 MG/5 ML CUP PO STA (11:04)
--- NOTE | 2020-05-04 11:20 | P.PN ---
Subjective Progress Note Date: 05/04/20 History of Present Illness This is an 84-year-old male patient of Dr. Lawson with past medical history of coronary artery disease, Parkinson's disease, recurrent headaches, severe PAD, generalized osteoarthritis, obstructive sleep apnea on CPAP. Patient recently underwent a total left hip arthroplasty with Dr. Horvath at [facility] and was subsequently admitted to [facility] on April 16 due to generalized debility and shortness of breath, found to have bilateral pulmonary embolism and large DVT in the right leg. Patient was discharge to [facility] for subacute rehab and was doing well over the weekend there was concern for seizure activity. Over the past week patient has had multiple episodes of similar events. He does have a history of seizure disorder the patient is having unresponsive episodes for approximately 25-30 minutes and also had episode yesterday afternoon of a tonic-clonic type activity patient apparently had 34 episodes over the past week and for most of them he becomes unresponsive lasting for about 30-40 seconds and then is able to return to baseline. Patient was brought into [facility] emergency center for evaluation. EKG normal sinus rhythm with no acute ST-T wave changes. Potassium 4.2, chloride 89, CO2 24, BUN 12 and creatinine 0.71, blood sugar 116. Lactic acid 1.8, ammonia level less than 9. Liver function tests normal. Patient was started on IV fluids, hydrochlorothiazide on hold. Patient admitted to the cardiac stepdown unit and consults requested with neurology and nephrology and consult added for urology regarding urinary retention and chronic Olivo catheter. 04/30: Patient has been afebrile, heart rate 72, blood pressure 121/67, pulse ox 93% on room air. Repeat blood work reveals sodium 124, potassium 4.0, chloride 93, CO2 27, BUN 10 and creatinine 0.56. Blood sugar 97. TSH 7.190 and free T4 2 0.25. We are planning to repeat TSH and free T4 and if still elevated, start levothyroxine 25 g daily. Patient has been seen by nephrology for SIADH. He has a Olivo catheter in for urinary retention which will remain. He is on a 1200 mL fluid restriction. Salt tablets have been ordered by nephrology. 05/01: The patient is seen today in follow-up. He denies any new complaints and states he is feeling well. Patient has been afebrile, heart rate 87, blood pressure 147/88, pulse ox 95% on room air. A repeat blood work reveals improving sodium at 128, potassium 4.2, chloride 96, CO2 26, BUN 10 and creatinine 0.6. COVID-[address] Reina has recommended continuing salt tablets and 1200 mL fluid restriction. Avoid thiazide diuretics. Patient is seen and followed by urology. This afternoon, patient had a syncopal episode with his nurse and at side. Patient was ambulating into the bathroom. His initial blood pressure 75/51. His blood pressures have been running normal since he has been admitted. Patient's states he has multiple episodes like this at [facility]. Today's episode possible vasovagal. 05/02: Patient's is here for maintaining and results of testing and prognosis and plan have been discussed with her and her at the bedside. Patient noted to have hematuria in his Olivo catheter and a consult with urology will be requested to review. Patient was already seen by Dr. Gaspar earlier this week for urinary retention. We are going to hold aspirin and Plavix. Patient will be continued on Xarelto only. Concerned that loss of consciousness yesterday was related to seizure activity and Keppra will be increased to 750 mg twice daily and baclofen added at 10 mg 3 times daily per patient/ request. Patient has not had any episodes overnight. Case discussed with Dr. Pedroza. Anticipate possible discharge to [facility] tomorrow. 05/03: Patient had Olivo cath removed this morning for voiding trial and he was able to void on his own. Patient has worked with physical therapy this morning. He has had no further syncopal episodes. Discussed in detail with Dr. Pedroza unclear etiology, he feels that patient may be vasovagal in but orthostatics have been checked and are negative. Plan is to continue the Keppra at the current dose of 750 mg twice daily. Tilt table test has been ordered for today but before patient could go for testing, he developed another unresponsive episode that lasted at least 12 minutes, no seizure activity was noted. Blood pressure 86/50 with repeat at 90/50, blood sugar 187. IV fluid bolus was given. At the time of episode, patient was sitting in a chair. Dr. Scruggs was present. He has been afebrile, heart rate 71, blood pressure 128/67, pulse ox 96% on room air. Repeat blood work reveals sodium 134, potassium 3.7, chloride 102, CO2 27, BUN 11 creatinine 0.55. COVID-19 testing is negative. Discharge to [facility] will be held today and anticipate possible discharge on Wednesday. 05/04: Patient had episode yesterday thought to be a seizure activity seen by Dr. Pedroza with recommendations to an increase Keppra to 1000 mg twice daily and he ordered a 1 time dose of Vimpat 200 mg IV. We will switch Keppra to oral and added in. At 50 mg twice daily with plan to increase this to 100 mg twice daily on Wednesday. Patient has had no further seizure or syncopal episodes. Patient's is at bedside and they would really like him to go home versus going to sub acute rehab but patient is quite lethargic. This may be related to Ativan given yesterday but we'll plan to monitor over the weekend and determine discharge plan on Wednesday. Patient has been afebrile, heart rate 78, blood pressure 122/64, pulse ox 98% on 2 L nasal cannula. Repeat blood work reveals Louise BC 4.1, hemoglobin 7.9, platelet count 298. Sodium 135, potassium 4.0, chloride 105, CO2 26, BUN 20 creatinine 0.7. Review of Systems Constitutional: No fever, no chills, no night sweats. No weight change. No weakness, fatigue or lethargy. No daytime sleepiness. EENT: No headache. No blurred vision or double vision, no loss of vision. No loss of Hearing, no ringing in the ears, no dizziness. No nasal drainage or congestion. No epistaxis. No sore throat. Lungs: No shortness of breath, cough, no sputum production. No wheezing. Cardiovascular: No chest pain, no lower extremity edema. No palpitations. No paroxysmal nocturnal dyspnea. No orthopnea. No lightheadedness or dizziness. Reports syncopal episode, last episode on 05/03. Abdominal: No abdominal pain. No nausea, vomiting. No diarrhea. No constipation. No bloody or tarry stools.. No loss of appetite. Genitourinary: No dysuria, increased frequency, urgency. Reports urinary retention-Olivo has been removed. Musculoskeletal: No myalgias. No muscle weakness, reports gait dysfunction, no frequent falls. No back pain. No neck pain. Integumentary: No wounds, no lesions. No rash or pruritus. No unusual bruising. No change in hair or nails. Neurologic: No aphasia. No facial droop. No change in mentation. No head injury. No headache. No paralysis. No paresthesia. Psychiatric: No depression. No anxiety. No mood swings. Endocrine: No abnormal blood sugars. No weight change. No excessive sweating or thirst. No cold intolerance. Physical Examination Gen: This is an 84-year-old male. He is resting in bed and appears comfortable. HEENT: Head is atraumatic, normocephalic. Pupils equal, round. Sclerae is anicteric. NECK: Supple. No JVD. No lymphadenopathy. No thyromegaly. LUNGS: Clear to auscultation. No wheezes or rhonchi. No intercostal retractions. HEART: Regular rate and rhythm. Systolic ejection murmur. ABDOMEN: Soft. Bowel sounds are present. No masses. No tenderness. EXTREMITIES: No pedal edema. No calf tenderness. NEUROLOGICAL: Patient is awake, alert and oriented x3. Cranial nerves 2 through 12 are grossly intact. Generalized weakness noted. Assessment and Plan 1. Seizure episodes. Neurology consult appreciated. CAT scan of the head did not show any acute intracranial abnormality. EEG normal. Increase Keppra to 1000 g twice daily and add Vimpat 50 mg twice daily. Neurology consult appreciated. 2. Hyponatremia with SIADH. Hydrochlorothiazide on hold, fluid restriction, nephrology consult. Sodium tablets daily, 1200 mL fluid restriction. 3. Acute catheter associated urinary tract infection. Continue ceftriaxone 4. Urinary retention. Urology consult. Patient has a chronic Olivo catheter in place. Voiding trial. 5. Bilateral pulmonary embolism originating from DVT right leg. Continue Xarelto. 6. Recent history of left total knee arthroplasty. PT and OT. 7. Hypertension. Continue Coreg 25 mg twice daily, losartan 50 mg daily. Hold hydrochlorothiazide. 8. Hyperlipidemia. Continue Lipitor 40 mg daily, Zetia 10 mg daily. 9. History of CVA. Continue Plavix 75 mg daily, aspirin 81 mg daily, Lipitor 40 mg daily. 10. Coronary artery disease status post angioplasty and stent placement. Continue Plavix, aspirin, Lipitor. 11. Benign prostatic hypertrophy with urinary retention requiring straight cath and subsequent Olivo catheter placement on last admission. Voiding trial. 12. History of seizure disorder. Patient normally follows with Dr. Byrd. Continue Keppra. 13. Restless leg syndrome. Continue Mirapex 1 mg twice daily. 14. GI prophylaxis. Protonix. 15. DVT prophylaxis. Xarelto. 16. COVID-19 infection not present, May 01. 17. Syncopal episode on May 01, possible vasovagal with initially low blood pressure. 18. Hematuria. Urology to reevaluate. Plavix and aspirin discontinued. Patient continued on Xarelto only. 19. Aspiration. Seizure medications have been changed to IV. Patient made nothing by mouth for now and to be reassessed at bedside once more awake. CODE STATUS: Full code Discharge plan: on Wednesday. Impression and plan of care have been directed as dictated by the signing physician. Suly Gallo nurse practitioner acting as scribe for signing physician. Objective - Vital Signs Vital signs: Vital Signs Temp 98.2 F 05/04/20 03:10 Pulse 78 05/04/20 03:10 Resp 18 05/04/20 03:10 BP 122/64 05/04/20 03:10 Pulse Ox 98 05/04/20 03:10 Intake & Output 05/03/20 05/04/20 05/04/20 18:59 06:59 18:59 Output Total 400 Balance -400 Weight 92.2 kg Output: Urine 400 Uretheral (Olivo) 400 Other: Voiding Method Indwelling Catheter # Voids 1 0 - Labs CBC & Chem 7: 05/04/20 08:09 05/04/20 08:09 Labs: Abnormal Lab Results - Last 24 Hours (Table) 05/03/20 05/03/20 Range/Units 07:40 11:49 Sodium 134 L (137-145) mmol/L Creatinine 0.55 L (0.66-1.25) mg/dL Glucose 111 H (74-99) mg/dL POC Glucose (mg/dL) 187 H (75-99) mg/dL
[2020-05-04] MEDS: LOSARTAN 50 MG TAB PO SCH (11:47)
--- NOTE | 2020-05-04 11:54 | P.PN ---
Progress Note - Text Progress Note Date: 05/04/20 The patient's catheter was removed yesterday and he was able to void somewhat required straight catheterization early this morning when he had 400 mL in his bladder. Unfortunately the patient may have had a seizure yesterday and remained somewhat obtunded through the day. If he continues to have difficulty voiding it would be best to replace his Olivo catheter until he is more alert.
[2020-05-04] MEDS ORDERED: levETIRAcetam IV 500 MG in SODIUM CHLORIDE 0.9% 100 ML IVPB STA (12:11)
--- NOTE | 2020-05-04 12:27 | P.PN ---
Subjective Progress Note Date: 05/04/20 Follow-up for hyponatremia. Objective - Vital Signs Vital signs: Vital Signs Temp 98.2 F 05/04/20 03:10 Pulse 78 05/04/20 03:10 Resp 18 05/04/20 03:10 BP 122/64 05/04/20 03:10 Pulse Ox 98 05/04/20 03:10 Intake & Output 05/03/20 05/04/20 05/04/20 18:59 06:59 18:59 Intake Total 100 Output Total 400 Balance -400 100 Weight 92.2 kg Intake: Oral 100 Output: Urine 400 Uretheral (Olivo) 400 Other: Voiding Method Indwelling Catheter # Voids 1 0 # Bowel Movements 1 - Exam No acute distress S1-S2 heard Lungs clear No edema - Labs CBC & Chem 7: 05/04/20 08:09 05/04/20 08:09 Labs: Abnormal Lab Results - Last 24 Hours (Table) 05/04/20 05/04/20 Range/Units 08:09 08:09 RBC 2.71 L (4.30-5.90) m/uL Hgb 7.9 L (13.0-17.5) gm/dL Hct 25.3 L (39.0-53.0) % Lymphocytes # 0.7 L (1.0-4.8) k/uL Sodium 135 L (137-145) mmol/L Glucose 119 H (74-99) mg/dL Assessment and Plan Assessment: #1 hypernatremia secondary to SIADH from Keppra and thiazide diuretics. #2 benign hypertension controlled #3 seizure disorder Plan: #1 sodium controlled currently around baseline. #2 on Keppra, but avoid thiazide diuretics. #3 salt tablets and fluid restriction of 1200 ML's per day.
[2020-05-04] MEDS: SODIUM CHLORIDE 0.9% 1,000 ML IV SCH (17:18)
[2020-05-04] MEDS: FERROUS SULFATE 325 MG TAB PO SCH (18:32)
[2020-05-04] MEDS ORDERED: LACOSAMIDE 50 MG TABLET PO SCH (21:00)
[2020-05-04] MEDS: LACOSAMIDE IV 100 MG in SODIUM CHLORIDE 0.9% 50 ML IVPB SCH (21:27)
[2020-05-04] MEDS: LATANOPROST 0.005% OPHTH DROPS 2.5 ML BTL BOTH EYES SCH (21:46)
[2020-05-04] MEDS: MONTELUKAST 10 MG TAB PO SCH (21:46)
[2020-05-04] MEDS: ATORVASTATIN 40 MG TAB PO SCH (21:46)
[2020-05-04] MEDS: levETIRAcetam IV 1,000 MG in SALINE 1 100ML.BAG IVPB SCH (23:02)
[2020-05-04] MEDS: PANTOPRAZOLE 40 MG/10 ML VIAL IVP SCH (23:02)
[2020-05-05] MEDS: SODIUM CHLORIDE 0.9% 1,000 ML IV SCH ×2 (05:57→17:06)
[2020-05-05 06:42] LABS: HCT 22.9 % (39.0-53.0); HGB 7.3 gm/dL (13.0-17.5); Hypochromasia Slight; MCH 29.7 pg (25.0-35.0); MCHC 31.7 g/dL (31.0-37.0); MCV 93.7 fL (80.0-100.0); Mean Platelet Volume 6.7; Platelet Count 289 k/uL (150-450); RBC 2.45 m/uL (4.30-5.90); RDW 15.6 % (11.5-15.5); WBC 4.8 k/uL (3.8-10.6)
[2020-05-05 06:55] LABS: African American GFR (CKD) >90 (>60 ml/min/1.73 sqM); Anion Gap 5 mmol/L; Blood Urea Nitrogen 18 mg/dL (9-20); Calcium 8.5 mg/dL (8.4-10.2); Carbon Dioxide 26 mmol/L (22-30); Chloride 106 mmol/L (98-107); Glucose 100 mg/dL (74-99); Non-African American GFR(CKD) >90 (>60 ml/min/1.73 sqM); Potassium 3.9 mmol/L (3.5-5.1); Sodium 137 mmol/L (137-145)
[2020-05-05] MEDS ORDERED: FUROSEMIDE 10 MG/ML 2 ML VIAL IV PRN (08:31)
[2020-05-05] MEDS: TIMOLOL 0.5% OPHTH DROPS 5 ML BTL LEFT EYE SCH ×2 (08:49→16:10)
[2020-05-05] MEDS: BRIMONIDINE TARTRATE 0.2% DROPS 5 ML BTL LEFT EYE SCH ×2 (08:49→16:10)
[2020-05-05] MEDS: CYANOCOBALAMIN 500 MCG TAB PO SCH (08:50)
[2020-05-05] MEDS: BACLOFEN 10 MG TAB PO SCH ×3 (08:50→21:51)
[2020-05-05] MEDS: SENNOSIDES-DOCUSATE SODIUM 1 EACH TAB PO SCH ×2 (08:50→16:09)
[2020-05-05] MEDS: carvediloL 12.5 MG TAB PO SCH ×2 (08:50→16:10)
[2020-05-05] MEDS: TAMSULOSIN 0.4 MG CAP.ER.24H PO SCH ×2 (08:50→16:09)
[2020-05-05] MEDS: LOSARTAN 50 MG TAB PO SCH (08:51)
[2020-05-05] MEDS: PANTOPRAZOLE 40 MG/10 ML VIAL IVP SCH ×2 (08:51→23:43)
[2020-05-05] MEDS: EZETIMIBE 10 MG TAB PO SCH (08:51)
[2020-05-05] MEDS: SODIUM CHLORIDE TAB 1 GM TAB PO SCH (08:51)
[2020-05-05] MEDS: levETIRAcetam IV 1,000 MG in SALINE 1 100ML.BAG IVPB SCH ×2 (08:52→21:17)
--- NOTE | 2020-05-05 09:57 | P.PN ---
Subjective Progress Note Date: 05/05/20 History of Present Illness This is an 84-year-old male patient of Dr. Lawson with past medical history of coronary artery disease, Parkinson's disease, recurrent headaches, severe PAD, generalized osteoarthritis, obstructive sleep apnea on CPAP. Patient recently underwent a total left hip arthroplasty with Dr. Horvath at [facility] and was subsequently admitted to [facility] on April 16 due to generalized debility and shortness of breath, found to have bilateral pulmonary embolism and large DVT in the right leg. Patient was discharge to [facility] for subacute rehab and was doing well over the weekend there was concern for seizure activity. Over the past week patient has had multiple episodes of similar events. He does have a history of seizure disorder the patient is having unresponsive episodes for approximately 25-30 minutes and also had episode yesterday afternoon of a tonic-clonic type activity patient apparently had 34 episodes over the past week and for most of them he becomes unresponsive lasting for about 30-40 seconds and then is able to return to baseline. Patient was brought into [facility] emergency center for evaluation. EKG normal sinus rhythm with no acute ST-T wave changes. Potassium 4.2, chloride 89, CO2 24, BUN 12 and creatinine 0.71, blood sugar 116. Lactic acid 1.8, ammonia level less than 9. Liver function tests normal. Patient was started on IV fluids, hydrochlorothiazide on hold. Patient admitted to the cardiac stepdown unit and consults requested with neurology and nephrology and consult added for urology regarding urinary retention and chronic Olivo catheter. 04/30: Patient has been afebrile, heart rate 72, blood pressure 121/67, pulse ox 93% on room air. Repeat blood work reveals sodium 124, potassium 4.0, chloride 93, CO2 27, BUN 10 and creatinine 0.56. Blood sugar 97. TSH 7.190 and free T4 2 0.25. We are planning to repeat TSH and free T4 and if still elevated, start levothyroxine 25 g daily. Patient has been seen by nephrology for SIADH. He has a Olivo catheter in for urinary retention which will remain. He is on a 1200 mL fluid restriction. Salt tablets have been ordered by nephrology. 05/01: The patient is seen today in follow-up. He denies any new complaints and states he is feeling well. Patient has been afebrile, heart rate 87, blood pressure 147/88, pulse ox 95% on room air. A repeat blood work reveals improving sodium at 128, potassium 4.2, chloride 96, CO2 26, BUN 10 and creatinine 0.6. COVID-[address] Reina has recommended continuing salt tablets and 1200 mL fluid restriction. Avoid thiazide diuretics. Patient is seen and followed by urology. This afternoon, patient had a syncopal episode with his nurse and at side. Patient was ambulating into the bathroom. His initial blood pressure 75/51. His blood pressures have been running normal since he has been admitted. Patient's states he has multiple episodes like this at [facility]. Today's episode possible vasovagal. 05/02: Patient's is here for maintaining and results of testing and prognosis and plan have been discussed with her and her at the bedside. Patient noted to have hematuria in his Olivo catheter and a consult with urology will be requested to review. Patient was already seen by Dr. Gaspar earlier this week for urinary retention. We are going to hold aspirin and Plavix. Patient will be continued on Xarelto only. Concerned that loss of consciousness yesterday was related to seizure activity and Keppra will be increased to 750 mg twice daily and baclofen added at 10 mg 3 times daily per patient/ request. Patient has not had any episodes overnight. Case discussed with Dr. Pedroza. Anticipate possible discharge to [facility] tomorrow. 05/03: Patient had Olivo cath removed this morning for voiding trial and he was able to void on his own. Patient has worked with physical therapy this morning. He has had no further syncopal episodes. Discussed in detail with Dr. Pedroza unclear etiology, he feels that patient may be vasovagal in but orthostatics have been checked and are negative. Plan is to continue the Keppra at the current dose of 750 mg twice daily. Tilt table test has been ordered for today but before patient could go for testing, he developed another unresponsive episode that lasted at least 12 minutes, no seizure activity was noted. Blood pressure 86/50 with repeat at 90/50, blood sugar 187. IV fluid bolus was given. At the time of episode, patient was sitting in a chair. Dr. Scruggs was present. He has been afebrile, heart rate 71, blood pressure 128/67, pulse ox 96% on room air. Repeat blood work reveals sodium 134, potassium 3.7, chloride 102, CO2 27, BUN 11 creatinine 0.55. COVID-19 testing is negative. Discharge to [facility] will be held today and anticipate possible discharge on Wednesday. 05/04: Patient had episode yesterday thought to be a seizure activity seen by Dr. Pedroza with recommendations to an increase Keppra to 1000 mg twice daily and he ordered a 1 time dose of Vimpat 200 mg IV. We will switch Keppra to oral and added in. At 50 mg twice daily with plan to increase this to 100 mg twice daily on Wednesday. Patient has had no further seizure or syncopal episodes. Patient's is at bedside and they would really like him to go home versus going to sub acute rehab but patient is quite lethargic. This may be related to Ativan given yesterday but we'll plan to monitor over the weekend and determine discharge plan on Wednesday. Patient has been afebrile, heart rate 78, blood pressure 122/64, pulse ox 98% on 2 L nasal cannula. Repeat blood work reveals WBC 4.1, hemoglobin 7.9, platelet count 298. Sodium 135, potassium 4.0, chloride 105, CO2 26, BUN 20 creatinine 0.7. 05/05: Patient was having difficulty swallowing yesterday was made nothing by maximilian brock, antiseizure medications changed to IV. Patient subsequently developed blood in his stools and due to urinary retention Olivo catheter was replaced and patient has hematuria. Xarelto was then placed on hold. IV fluids resumed at 75 mL per hour. Consult has been added for GI. Lab work this morning revealed hemoglobin of 7.3 and patient will be transfused 1 unit of packed RBCs. Sodium is 137, potassium 3.9, chloride 106, CO2 26, BUN 18 and creatinine 0.54. Patient has been afebrile, heart rate 75, blood pressure 140/80, pulse ox 90% on 2 L nasal cannula. Review of Systems Constitutional: No fever, no chills, no night sweats. No weight change. Reports weakness, fatigue or lethargy. No daytime sleepiness. EENT: No headache. No blurred vision or double vision, no loss of vision. No loss of Hearing, no ringing in the ears, no dizziness. No nasal drainage or congestion. No epistaxis. No sore throat. Lungs: No shortness of breath, cough, no sputum production. No wheezing. Cardiovascular: No chest pain, no lower extremity edema. No palpitations. No paroxysmal nocturnal dyspnea. No orthopnea. No lightheadedness or dizziness. Reports syncopal episode, last episode on 05/03. Abdominal: No abdominal pain. No nausea, vomiting. No diarrhea. No constipation. Reports bloody or tarry stools.. No loss of appetite. Genitourinary: No dysuria, increased frequency, urgency. Reports urinary retention-Olivo has been removed. Musculoskeletal: No myalgias. No muscle weakness, reports gait dysfunction, no frequent falls. No back pain. No neck pain. Integumentary: No wounds, no lesions. No rash or pruritus. No unusual bruising. No change in hair or nails. Neurologic: No aphasia. No facial droop. No change in mentation. No head injury. No headache. No paralysis. No paresthesia. Reports dysphagia. Psychiatric: No depression. No anxiety. No mood swings. Endocrine: No abnormal blood sugars. No weight change. No excessive sweating or thirst. No cold intolerance. Physical Examination Gen: This is an 84-year-old male. He is resting in bed and appears comfortable. HEENT: Head is atraumatic, normocephalic. Pupils equal, round. Sclerae is anicteric. NECK: Supple. No JVD. No lymphadenopathy. No thyromegaly. LUNGS: Clear to auscultation. No wheezes or rhonchi. No intercostal retractions. HEART: Regular rate and rhythm. Systolic ejection murmur. ABDOMEN: Soft. Bowel sounds are present. No masses. No tenderness. Olivo catheter with hematuria. EXTREMITIES: No pedal edema. No calf tenderness. NEUROLOGICAL: Patient is awake, alert and oriented x3. Cranial nerves 2 through 12 are grossly intact. Generalized weakness noted. Assessment and Plan 1. Seizure episodes. Neurology consult appreciated. CAT scan of the head did not show any acute intracranial abnormality. EEG normal. Increase Keppra to 1000 g twice daily and add Vimpat 50 mg twice daily. Neurology consult appreciated. 2. Hyponatremia with SIADH. Hydrochlorothiazide on hold, fluid restriction, nephrology consult. Sodium tablets daily, 1200 mL fluid restriction. 3. Acute catheter associated urinary tract infection. Continue ceftriaxone 4. Urinary retention. Urology consult appreciated. Olivo replaced.. 5. Bilateral pulmonary embolism originating from DVT right leg. Discontinue Xarelto due to GI bleed and hematuria. 6. Recent history of left total knee arthroplasty. PT and OT. 7. Hypertension. Continue Coreg 25 mg twice daily, losartan 50 mg daily. Hold hydrochlorothiazide. 8. Hyperlipidemia. Continue Lipitor 40 mg daily, Zetia 10 mg daily. 9. History of CVA. Plavix and aspirin has been discontinued. Lipitor 40 mg daily. 10. Coronary artery disease status post angioplasty and stent placement. Discontinue Plavix and aspirin. Lipitor. 11. Benign prostatic hypertrophy with urinary retention requiring straight cath and subsequent Olivo catheter placement on last admission. Olivo replaced. 12. History of seizure disorder. Patient normally follows with Dr. Byrd. Continue Keppra. 13. Restless leg syndrome. Continue Mirapex 1 mg twice daily. 14. GI prophylaxis. Protonix IV twice daily. 15. DVT prophylaxis. Xarelto discontinued. 16. COVID-19 infection not present, May 01. 17. Syncopal episode on May 01, possible vasovagal with initially low blood pressure. 18. Hematuria. Urology to reevaluate. Plavix and aspirin discontinued. Patient continued on Xarelto only. 19. Aspiration. Seizure medications have been changed to IV. Patient made nothing by mouth for now and to be reassessed at bedside once more awake. 20. Acute GI bleed with acute blood loss anemia. Consult with GI. 21. Acute blood loss anemia secondary to hematuria and GI bleed. Patient be transfused 1 unit packed RBCs. Plavix, aspirin and Xarelto have all been placed on hold. CODE STATUS: Full code Discharge plan: [facility] next week. PT and OT following. Do not anticipate the patient will be able to return home. Impression and plan of care have been directed as dictated by the signing physician. Suly Gallo nurse practitioner acting as scribe for signing physician. Objective - Vital Signs Vital signs: Vital Signs Temp 97.9 F 05/05/20 03:05 Pulse 83 05/05/20 03:05 Resp 18 05/05/20 03:05 BP 132/75 05/05/20 03:05 Pulse Ox 96 05/05/20 03:05 Intake & Output 05/04/20 05/05/20 05/05/20 18:59 06:59 18:59 Intake Total 100 Output Total 425 120 Balance -325 -120 Weight 92 kg Intake: Oral 100 Output: Urine 425 120 Uretheral (Olivo) 425 Other: Voiding Method Indwelling Catheter Indwelling Catheter # Voids 0 # Bowel Movements 2 2 - Labs CBC & Chem 7: 05/05/20 05:50 05/05/20 05:50 Labs: Abnormal Lab Results - Last 24 Hours (Table) 05/04/20 05/04/20 05/05/20 Range/Units 08:09 08:09 05:50 RBC 2.71 L 2.45 L (4.30-5.90) m/uL Hgb 7.9 L 7.3 L (13.0-17.5) gm/dL Hct 25.3 L 22.9 L (39.0-53.0) % RDW 15.6 H (11.5-15.5) % Lymphocytes # 0.7 L (1.0-4.8) k/uL Sodium 135 L (137-145) mmol/L Creatinine (0.66-1.25) mg/dL Glucose 119 H (74-99) mg/dL 05/05/20 Range/Units 05:50 RBC (4.30-5.90) m/uL Hgb (13.0-17.5) gm/dL Hct (39.0-53.0) % RDW (11.5-15.5) % Lymphocytes # (1.0-4.8) k/uL Sodium (137-145) mmol/L Creatinine 0.54 L (0.66-1.25) mg/dL Glucose 100 H (74-99) mg/dL
[2020-05-05] MEDS: LACOSAMIDE IV 100 MG in SODIUM CHLORIDE 0.9% 50 ML IVPB SCH ×2 (10:37→21:38)
--- NOTE | 2020-05-05 10:47 | P.PN ---
Subjective Progress Note Date: 05/05/20 Follow-up for hyponatremia. Objective - Vital Signs Vital signs: Vital Signs Temp 98.7 F 05/05/20 08:00 Pulse 75 05/05/20 08:00 Resp 16 05/05/20 08:00 BP 140/80 05/05/20 08:00 Pulse Ox 98 05/05/20 08:00 Intake & Output 05/04/20 05/05/20 05/05/20 18:59 06:59 18:59 Intake Total 100 Output Total 425 120 Balance -325 -120 Weight 92 kg Intake: Oral 100 Output: Urine 425 120 Uretheral (Olivo) 425 Other: Voiding Method Indwelling Catheter Indwelling Catheter Indwelling Catheter # Voids 0 # Bowel Movements 2 2 - Exam No acute distress S1-S2 heard Lungs clear No edema Olivo catheter, hematuria - Labs CBC & Chem 7: 05/05/20 05:50 05/05/20 05:50 Labs: Abnormal Lab Results - Last 24 Hours (Table) 05/05/20 05/05/20 05/05/20 Range/Units 05:50 05:50 08:37 RBC 2.45 L (4.30-5.90) m/uL Hgb 7.3 L (13.0-17.5) gm/dL Hct 22.9 L (39.0-53.0) % RDW 15.6 H (11.5-15.5) % Creatinine 0.54 L (0.66-1.25) mg/dL Glucose 100 H (74-99) mg/dL Crossmatch See Detail Assessment and Plan Assessment: #1 hypernatremia secondary to SIADH from Keppra and thiazide diuretics. #2 benign hypertension controlled #3 seizure disorder #4 hematuria, has Olivo Plan: #1 sodium improved currently around baseline. #2 on Keppra, but avoid thiazide diuretics now and at discharge. #3 salt tablets and fluid restriction of 1200 ML's per day.
[2020-05-05] MEDS: FERROUS SULFATE 325 MG TAB PO SCH (16:09)
--- NOTE | 2020-05-05 21:28 | P.CONS ---
History of Present Illness - Reason for Consult Consult date: 05/05/20 Dysphagia Requesting physician: Louis Lawson - Chief Complaint Seizure-like activity - History of Present Illness 84-year-old female with multiple medical comorbidities including coronary disease, Parkinson's disease, peripheral arterial disease, osteoarthritis, obstructive sleep apnea, recent total left hip arthroplasty instructed hospital for evaluation of seizure-like activity and is currently on antiepileptics therapy. Patient also being treated for urinary retention and a urinary tract infection with gross hematuria in Olivo catheter. The patient had an episode of dysphagia with pills yesterday at which time he had been somnolent from medical treatment. He denies any prior episodes of dysphagia or difficulty swallowing. He reports bowel movements are generally normal with no signs or symptoms of GI bleeding. No nausea or vomiting reported. He does report his last colonoscopy was approximately 5 years ago but no prior EGD. Patient has been anemic with gross hematuria since presentation hemoglobin currently stable at 7.3 from 7.4 yesterday. Review of Systems REVIEW OF SYSTEMS: CONSTITUTIONAL: Denies any fevers, chills, weight change or fatigue. CARDIOVASCULAR: Denies any chest pain, palpitations high or low blood pressures RESPIRATORY: Denies any shortness of breath, hemoptysis or cough. GENITOURINARY: Currently being treated for UTI, gross hematuria. MUSCULOSKELETAL: No weakness reported. SKIN: Denies any new rashes or lesions, jaundice or pallor. PSYCHIATRIC: Denies any depression or anxiety. NEUROLOGY: Denies headache, denies any new focal deficits, Parkinson's disease, being treated for seizure-like activity. EARS/NOSE/THROAT: No recent hearing change, congestion, nasal discharge or sore throat. EYES: No pain in eyes, discharge or change in vision. GASTROINTESTINAL: As per HPI. 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, multiple TIAs, parkinson's disease, neuralgia, neuropathy bilateral hands, legs and feet, thoracic spondylosis, prostrate cancer with surgery/chemo and radiation, UTIs, kidney stones, L eye glaucoma, PVD/bilateral lower extremity edema, caratid stenosis, aemia, bronchitis, lower GI bleed, ANDREA with CPap History of Any Multi-Drug Resistant Organisms: None Reported Past Surgical History: Adenoidectomy, Back Surgery, Heart Catheterization With Stent, Hernia Repair, Joint Replacement, Orthopedic Surgery, Prostate Surgery, Tonsillectomy Additional Past Surgical History / Comment(s): PCI with stent in 2013, prostate biopsies, laser vaporization of prostrate, bilateral inquinal hernia repairs, EGD/colonoscopy, supraorbital percutaneous nerve stimulator trial, epidural injections, low back surgery, R foot hammer toe surgery, bilateral total knee replacements, bilateral cataract removals/lens implants, hemorrhoidectomy, R side of head vein biopsy, left hip arthroplasty 2 weeks ago Past Anesthesia/Blood Transfusion Reactions: No Reported Reaction Additional Past Anesthesia/Blood Transfusion Reaction / Comm: Pt has received blood in past without reaction. Date of Last Stent Placement:: 2012 Past Psychological History: No Psychological Hx Reported Additional Psychological History / Comment(s): Pt resides with his spouse. He uses a walker to ambulate. Smoking Status: Never smoker Past Alcohol Use History: None Reported Past Drug Use History: None Reported - Past Family History Brother(s) Family Medical History: No Reported History Additional Family Medical History / Comment(s): Patient has 3 brothers with no major medical problems. Sister(s) Family Medical History: Hypertension Additional Family Medical History / Comment(s): Patient has 3 sisters that are all alive. 2 have high blood pressure. One has diabetes and stroke and is 81 years old. And all have history of tremors. Son(s) Family Medical History: No Reported History Additional Family Medical History / Comment(s): Patient has 3 sons and one daughter with no major medical problems. Father Family Medical History: Myocardial Infarction (MS) Additional Family Medical History / Comment(s): Father at age 73 with history of Parkinson's disease, bowel cancer, bone cancer. Mother Family Medical History: No Reported History, Myocardial Infarction (MS) Additional Family Medical History / Comment(s): Mother at age 85 with history of hypertension and dementia. Medications and Allergies Home Medications Medication Instructions Recorded Confirmed Type Montelukast [Singulair] 10 mg PO HS@2100 09/19/15 04/28/20 History Cholecalciferol [Vitamin D3 (25 5,000 unit PO DAILY@1700 03/05/17 04/28/20 History Mcg = 1000 Iu)] Ferrous Sulfate [Iron (65 MG 325 mg PO DAILY@169907/14/18 04/28/20 History Elemental)] Brimonidine Tartrate/Timolol 1 drop LEFT EYE BID@0800,1700 08/23/18 04/28/20 History [Combigan 0.2%-0.5% Eye Drops] carvediloL [Carvedilol] 25 mg PO BID@0800,169908/23/18 04/28/20 History Baclofen 10 mg PO TID PRN 04/16/20 04/28/20 History Cyanocobalamin (Vitamin B-12) 2,500 mcg PO DAILY@79904/16/20 04/28/20 History [Vitamin B-12] Ezetimibe [Zetia] 10 mg PO DAILY@79904/16/20 04/28/20 History Latanoprost/Pf [Latanoprost 0.005% 1 drop BOTH EYES HS@209904/16/20 04/28/20 History Eye Drop] Rosuvastatin Calcium 20 mg PO HS@209904/16/20 04/28/20 History Magnesium Hydroxide [Milk of 2,400 mg PO DAILY PRN ml 04/18/20 04/28/20 Rx Magnesia Concentrate] Losartan Potassium 50 mg PO DAILY@79904/28/20 04/28/20 History Na Phos,M-B/Na Phos,Di-Ba [Fleet 133 ml RECTAL DAILY PRN 04/28/20 04/28/20 History Adult] Pantoprazole [Protonix] 40 mg PO DAILY@0604/28/20 04/28/20 History Pramipexole [Mirapex] 1 mg PO BID@0800,0 04/28/20 04/28/20 History Sennosides-Docusate Sodium 1 tab PO BID@0800,169904/28/20 04/28/20 History [Senokot-S] Tamsulosin [Flomax] 0.4 mg PO BID@0800,1700 04/28/20 04/28/20 History bisacodyL [Dulcolax] 10 mg RECTAL Q24H PRN 04/28/20 04/28/20 History methocarbamoL [Robaxin] 750 mg PO TID PRN 04/28/20 04/28/20 History Buta/APAP/Caf/Cod 17-375-47-30 1 - 2 cap PO Q4H PRN #18 cap MDD 4 05/03/20 Rx [Fioricet w/Cod 34-244-06-30MG] caps HYDROcodone/APAP 10-325MG [Palmer 1 tab PO Q5H PRN #12 tab 05/03/20 Rx 10-325] Rivaroxaban [Xarelto] 20 mg PO DAILY #30 tab 05/03/20 Rx Sodium Chloride Tab 1 gm PO DAILY tab 05/03/20 Rx levETIRAcetam [Keppra] 750 mg PO Q12HR tab 05/03/20 Rx Allergies Allergy/AdvReac Type Severity Reaction Status Date / Time metoclopramide [From Reglan] AdvReac SHAKES Verified 04/28/20 15:51 oxycodone HCl AdvReac Nausea & Verified 04/28/20 15:51 [From OxyContin] Vomiting Physical Exam Vitals: Vital Signs Temp Pulse Resp BP BP Pulse Ox 05/05/20 08:00 98.7 F 75 16 140/80 98 05/05/20 03:05 97.9 F 83 18 132/75 96 05/04/20 23:05 98.3 F 73 18 155/68 96 05/04/20 19:40 98.7 F 72 18 162/69 98 05/04/20 16:00 98.2 F 68 18 119/63 98 05/04/20 12:00 74 16 102/60 97 Intake and Output 05/04/20 05/05/20 05/05/20 22:59 06:59 14:59 Output Total 425 120 Balance -425 -120 Output: Urine 425 120 Uretheral (Olivo) 425 Other: Voiding Method Indwelling Catheter Indwelling Catheter Indwelling Catheter # Voids 0 # Bowel Movements 2 2 Weight 92 kg On physical examination, patient appears comfortable in no apparent distress. HEAD: Normocephalic, atraumatic. EYES: No scleral icterus. No conjunctival injection. MOUTH: No lesions, tongue midline. NECK: Trachea midline, no gross abnormalities. CHEST: Decreased air entry in all lung leon. HEART: S1-S2 appreciated. ABDOMEN: Soft, nontender to palpation. Bowel sounds are positive. No organom egaly. No guarding or rigidity. EXTREMITIES: No pedal edema. SKIN: No rashes, no jaundice. NEUROLOGIC: Alert and oriented x3. Results CBC & Chem 7: 05/05/20 05:50 05/05/20 05:50 Labs: Abnormal Lab Results - Last 24 Hours (Table) 05/05/20 05/05/20 05/05/20 Range/Units 05:50 05:50 08:37 RBC 2.45 L (4.30-5.90) m/uL Hgb 7.3 L (13.0-17.5) gm/dL Hct 22.9 L (39.0-53.0) % RDW 15.6 H (11.5-15.5) % Creatinine 0.54 L (0.66-1.25) mg/dL Glucose 100 H (74-99) mg/dL Crossmatch See Detail Assessment and Plan (1) Esophageal dysphagia Narrative/Plan: 84-year-old with multiple medical comorbidities currently being treated for seizure-like activity as well as urinary infection with gross hematuria. The patient had episodes of esophageal dysphagia, however on questioning denies any prior episodes of dysphagia, history of GERD, nausea or vomiting. Currently swallowing is improved and patient would like to try diet. Current Visit: Yes Status: Acute Code(s): R13.10 - DYSPHAGIA, UNSPECIFIED SNOMED Code(s): 10232950 (2) Anemia associated with acute blood loss Narrative/Plan: Likely related to gross hematuria with blood noted in Olivo catheter. Denies any signs or symptoms of GI bleeding. Last colonoscopy approximately 5 years ago with no prior EGD reported. Current Visit: Yes Status: Acute Code(s): D62 - ACUTE POSTHEMORRHAGIC ANEMIA SNOMED Code(s): 177941925 Plan: Supportive care Okay for diet Continue to monitor for symptoms of dysphagia or GI bleeding Continue to monitor CBC, CMP, LFTs Continue antibiotic therapy for primary team Discussion with the patient and would like to resume diet, if symptoms of esophageal dysphagia recurred can consider endoscopic evaluation at that time Thank you for allowing us to participate in the care of the patient
[2020-05-05] MEDS: ATORVASTATIN 40 MG TAB PO SCH (21:51)
[2020-05-05] MEDS: MONTELUKAST 10 MG TAB PO SCH (21:51)
[2020-05-06] MEDS: SODIUM CHLORIDE 0.9% 1,000 ML IV SCH (02:38)
[2020-05-06 04:54] VITALS: RESP 16
[2020-05-06] MEDS: LATANOPROST 0.005% OPHTH DROPS 2.5 ML BTL BOTH EYES SCH (04:55)
[2020-05-06 08:17] LABS: Anisocytosis Slight; HCT 27.4 % (39.0-53.0); Hypochromasia Slight; MCH 29.3 pg (25.0-35.0); MCV 91.6 fL (80.0-100.0); Mean Platelet Volume 9.3; Platelet Count 251 k/uL (150-450); WBC 4.6 k/uL (3.8-10.6)
[2020-05-06 08:22] LABS: HGB 8.8 gm/dL (13.0-17.5)
[2020-05-06 08:27] LABS: ALT 13 U/L (4-49); AST 23 U/L (17-59); African American GFR (CKD) >90 (>60 ml/min/1.73 sqM); Albumin 2.7 g/dL (3.5-5.0); Alkaline Phosphatase 64 U/L (38-126); Anion Gap 4 mmol/L; Blood Urea Nitrogen 12 mg/dL (9-20); Calcium 8.2 mg/dL (8.4-10.2); Carbon Dioxide 26 mmol/L (22-30); Chloride 106 mmol/L (98-107); Glucose 98 mg/dL (74-99); Non-African American GFR(CKD) >90 (>60 ml/min/1.73 sqM); Potassium 3.7 mmol/L (3.5-5.1); Sodium 136 mmol/L (137-145); Total Bilirubin 0.7 mg/dL (0.2-1.3); Total Protein 4.8 g/dL (6.3-8.2)
[2020-05-06] MEDS: SENNOSIDES-DOCUSATE SODIUM 1 EACH TAB PO SCH (10:33)
[2020-05-06] MEDS: LOSARTAN 50 MG TAB PO SCH (10:33)
[2020-05-06] MEDS: CYANOCOBALAMIN 500 MCG TAB PO SCH (10:33)
[2020-05-06] MEDS: BACLOFEN 10 MG TAB PO SCH (10:33)
[2020-05-06] MEDS: TAMSULOSIN 0.4 MG CAP.ER.24H PO SCH (10:33)
[2020-05-06] MEDS: PANTOPRAZOLE 40 MG/10 ML VIAL IVP SCH (10:34)
[2020-05-06] MEDS: carvediloL 12.5 MG TAB PO SCH (10:34)
[2020-05-06] MEDS: TIMOLOL 0.5% OPHTH DROPS 5 ML BTL LEFT EYE SCH (10:35)
[2020-05-06] MEDS: BRIMONIDINE TARTRATE 0.2% DROPS 5 ML BTL LEFT EYE SCH (10:35)
[2020-05-06 10:42] VITALS: BMI 35.4
[2020-05-06] MEDS: EZETIMIBE 10 MG TAB PO SCH (10:53)
[2020-05-06] MEDS: levETIRAcetam IV 1,000 MG in SALINE 1 100ML.BAG IVPB SCH (10:53)
[2020-05-06] MEDS: LACOSAMIDE IV 100 MG in SODIUM CHLORIDE 0.9% 50 ML IVPB SCH (11:25)
[2020-05-06 13:05] VITALS: BP 115/63; PULSE 59; TEMP 98.2
--- NOTE | 2020-05-06 16:52 | PN ---
PROGRESS NOTE Patient is seen for followup for hyponatremia. His serum sodium level has improved. Patient was maintained on sodium chloride tablets. However, his blood pressure is currently slightly on the higher side. His sodium is up to 136 today. PHYSICAL EXAMINATION: On examination, patient is comfortable. Blood pressure is 155/79, heart rate 63 per minute. He is afebrile. EXAMINATION OF THE HEART: S1 and S2. EXAMINATION OF LUNGS: Decreased breath sounds at bases. ABDOMEN: Soft, non-tender. Examination of lower extremities shows no significant edema. DISTANCE EDUCATION COORDINATOR exam is grossly intact. LABS: Sodium 136, potassium 3.7, serum creatinine 0.46, hemoglobin 8.8 g/dL. ASSESSMENT: 1. 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 I will discontinue the sodium chloride tabs, as blood pressure is slightly on the higher side. I would continue to avoid use of hydrochlorothiazide down the road. 2. Hypertension, controlled. 3. Seizure disorder, maintained on Keppra. PLAN: Increase protein intake. Maintain some degree of free water restriction. May continue with Keppra. Avoid thiazide diuretics. Repeat labs as outpatient. MMODL / IJN: [id number] /
--- NOTE | 2020-05-06 20:01 | PN ---
PROGRESS NOTE DATE OF DICTATION: 05/06/2020 This patient is an 84-year-old pleasant white male admitted to the hospital with seizures. While in the hospital he developed dysphagia. Subsequently he had a swallow evaluation this morning and he did extremely well. There was no evidence of any dysphagia noted during the swallow evaluation. Subsequently patient was given a regular diet and he was able to eat well. He denies any complaints. Reports no abdominal pain. No nausea, vomiting. PHYSICAL EXAMINATION: Appears comfortable. No apparent distress. Vital signs are stable. Blood pressure is 133/85, pulse rate 59, temperature 98.2. HEENT examination unremarkable. Conjunctivae pink. Sclerae anicteric. Oral cavity no lesions. NECK: No JVD or lymph node enlargement. CHEST: Clear to auscultation. HEART: Regular rate and rhythm. ABDOMEN: Soft. Bowel sounds are positive. No organomegaly. EXTREMITIES: No pedal edema. SKIN: No rashes. NEUROLOGIC: Alert and oriented x3. No focal deficits. LABS: Labs from today show CBC with differential count is within normal limits except for hemoglobin of 8.8. Basic metabolic panel is normal. IMPRESSION: 1. Dysphagia for the last 2 days' duration. Most likely he had decreased oral intake following seizure medications and Ativan. He is currently very awake. Swallow study was completely normal. Patient is able to tolerate a regular diet well. 2. Seizure-like activity, resolved. RECOMMENDATIONS: 1. The patient can be discharged home. 2. No need for any outpatient followup. Thank you for this consultation. LOLI / FARHAT: [id number] /
== END 2020-05-06 16:15 | DRG 698 ==
LOC: EC 14:43 → 3SCARD 16:41
PROVIDERS: ADMIT Family Medicine; ATTEND Family Medicine
PROC: 30233N1 Transfusion of Nonautologous Red Blood Cells into Peripheral Vein, Percutaneous Approach (ICD-10-PCS; principal; 2020-05-05)
DX: T83.518A Infection and inflammatory reaction due to other urinary catheter, initial encounter (principal); G92 Toxic encephalopathy; E22.2 Syndrome of inappropriate secretion of antidiuretic hormone; N13.6 Pyonephrosis; D62 Acute posthemorrhagic anemia; K92.2 Gastrointestinal hemorrhage, unspecified; T50.2X5A Adverse effect of carbonic-anhydrase inhibitors, benzothiadiazides and other diuretics, initial encounter; G93.89 Other specified disorders of brain; G47.33 Obstructive sleep apnea (adult) (pediatric); I10 Essential (primary) hypertension; I25.10 Atherosclerotic heart disease of native coronary artery without angina pectoris; E78.5 Hyperlipidemia, unspecified; R55 Syncope and collapse; Z96.1 Presence of intraocular lens; Z96.653 Presence of artificial knee joint, bilateral; Z96.642 Presence of left artificial hip joint; Y84.6 Urinary catheterization as the cause of abnormal reaction of the patient, or of later complication, without mention of misadventure at the time of the procedure; K21.9 Gastro-esophageal reflux disease without esophagitis; M19.90 Unspecified osteoarthritis, unspecified site; G25.81 Restless legs syndrome; G20 Parkinson's disease; G40.909 Epilepsy, unspecified, not intractable, without status epilepticus; I73.9 Peripheral vascular disease, unspecified; N40.1 Benign prostatic hyperplasia with lower urinary tract symptoms; M15.9 Polyosteoarthritis, unspecified; R13.14 Dysphagia, pharyngoesophageal phase; R31.0 Gross hematuria; Z20.828 Contact with and (suspected) exposure to other viral communicable diseases; Z79.899 Other long term (current) drug therapy; Z79.02 Long term (current) use of antithrombotics/antiplatelets; Z79.01 Long term (current) use of anticoagulants; Z88.5 Allergy status to narcotic agent; Z88.8 Allergy status to other drugs, medicaments and biological substances; Z79.82 Long term (current) use of aspirin; Z82.0 Family history of epilepsy and other diseases of the nervous system; Z82.49 Family history of ischemic heart disease and other diseases of the circulatory system; Z83.3 Family history of diabetes mellitus; Z82.3 Family history of stroke; Z85.46 Personal history of malignant neoplasm of prostate; Z95.5 Presence of coronary angioplasty implant and graft; Z98.890 Other specified postprocedural states; Z90.49 Acquired absence of other specified parts of digestive tract; Z90.89 Acquired absence of other organs; Z98.42 Cataract extraction status, left eye; Z98.41 Cataract extraction status, right eye; Z92.3 Personal history of irradiation; Z87.442 Personal history of urinary calculi; Z86.73 Personal history of transient ischemic attack (TIA), and cerebral infarction without residual deficits; Z86.711 Personal history of pulmonary embolism; Z86.718 Personal history of other venous thrombosis and embolism
CPT/HCPCS: 36415; 70450; 80048; 80053; 80177; 81001; 82140; 82330; 83605; 83735; 83930; 83935; 84295; 84300; 84439; 84443; 84550; 85025; 85027; 85610; 85730; 86850; 86900; 86901; 86920; 87086; 87635; 95812; 95816; 96360; 99285

== ENCOUNTER 2020-05-13 13:21 | Emergency (ER) | payer MEDICARE ==
[2020-05-13] MEDS ORDERED: SODIUM CHLORIDE 0.9% 500 ML 500 ML IV STA (13:53)
[2020-05-13] MEDS ORDERED: ACETAMINOPHEN TAB 325 MG TAB PO STA (13:55)
--- NOTE | 2020-05-13 14:15 | ED ---
Seizure HPI - General Chief Complaint: Seizure Stated Complaint: Poss Seizure Time Seen by Provider: 05/13/20 13:40 Source: patient Mode of arrival: ambulatory Limitations: altered mental status - History of Present Illness Initial Comments: 84-year-old male patient with a past medical history significant for coronary artery disease, hyperlipidemia, hypertension, seizures, Parkinson's disease, stent placement 2013 presents to the emergency department today for evaluation after possibly having a seizure. Patient is currently residing at [facility] after having seizure episodes. Staff members found him unresponsive in his wheelchair. Seizure was unwitnessed but they state that he had a post ictal episode lasting approximately 40 minutes. Patient is now alert and oriented 2. He is reporting headache and double vision. States his headache is located in the posterior head. He does not recall having a seizure. He denies any recent head injury. He does take Keppra and Vimpat. He is also taking Xarelto. Patient denies any recent rash, fever, chills, cough, shortness of breath, chest pain, abdominal pain, diarrhea, constipation, back pain, numbness, tingling, dizziness, weakness, hematuria, dysuria, urinary urgency, urinary frequency, or any other complaints. - Related Data Home Medications Medication Instructions Recorded Confirmed Montelukast [Singulair] 10 mg PO HS@2100 09/19/15 04/28/20 Cholecalciferol [Vitamin D3 (25 5,000 unit PO DAILY@1700 03/05/17 04/28/20 Mcg = 1000 Iu)] Ferrous Sulfate [Iron (65 MG 325 mg PO DAILY@169907/14/18 04/28/20 Elemental)] Brimonidine Tartrate/Timolol 1 drop LEFT EYE BID@0800,0 08/23/18 04/28/20 [Combigan 0.2%-0.5% Eye Drops] carvediloL [Carvedilol] 25 mg PO BID@0800,0 08/23/18 04/28/20 Baclofen 10 mg PO TID PRN 04/16/20 04/28/20 Cyanocobalamin (Vitamin B-12) 2,500 mcg PO DAILY@79904/16/20 04/28/20 [Vitamin B-12] Ezetimibe [Zetia] 10 mg PO DAILY@0804/16/20 04/28/20 Latanoprost/Pf [Latanoprost 0.005% 1 drop BOTH EYES HS@209904/16/20 04/28/20 Eye Drop] Rosuvastatin Calcium 20 mg PO HS@209904/16/20 04/28/20 Losartan Potassium 50 mg PO DAILY@0804/28/20 04/28/20 Na Phos,M-B/Na Phos,Di-Ba [Fleet 133 ml RECTAL DAILY PRN 04/28/20 04/28/20 Adult] Pantoprazole [Protonix] 40 mg PO DAILY@0600 04/28/20 04/28/20 Pramipexole [Mirapex] 1 mg PO BID@0800,1700 04/28/20 04/28/20 Sennosides-Docusate Sodium 1 tab PO BID@0800,1700 04/28/20 04/28/20 [Senokot-S] Tamsulosin [Flomax] 0.4 mg PO BID@0800,1700 04/28/20 04/28/20 bisacodyL [Dulcolax] 10 mg RECTAL Q24H PRN 04/28/20 04/28/20 methocarbamoL [Robaxin] 750 mg PO TID PRN 04/28/20 04/28/20 Previous Rx's Medication Instructions Recorded Magnesium Hydroxide [Milk of 2,400 mg PO DAILY PRN ml 04/18/20 Magnesia Concentrate] Buta/APAP/Caf/Cod 93-946-30-30 1 - 2 cap PO Q4H PRN #18 cap MDD 4 05/03/20 [Fioricet w/Cod 62-014-11-30MG] caps HYDROcodone/APAP 10-325MG [[place] 1 tab PO Q5H PRN #12 tab 05/03/20 10-325] Rivaroxaban [Xarelto] 20 mg PO DAILY #30 tab 05/03/20 Sodium Chloride Tab 1 gm PO DAILY tab 05/03/20 Lacosamide [Vimpat] 100 mg PO BID 3 Days #6 tab 05/06/20 levETIRAcetam [Keppra] 1,000 mg PO Q12HR #60 tab 05/06/20 Allergies Allergy/AdvReac Type Severity Reaction Status Date / Time metoclopramide [From Reglan] AdvReac SHAKES Verified 05/13/20 13:35 oxycodone HCl AdvReac Nausea & Verified 05/13/20 13:35 [From OxyContin] Vomiting Review of Systems ROS Statement: Those systems with pertinent positive or pertinent negative responses have been documented in the HPI. ROS Other: All systems not noted in ROS Statement are negative. 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, multiple TIAs, parkinson's disease, neuralgia, neuropathy bilateral hands, legs and feet, thoracic spondylosis, prostrate cancer with surgery/chemo and radiation, UTIs, kidney stones, L eye glaucoma, PVD/bilateral lower extremity edema, caratid stenosis, aemia, bronchitis, lower GI bleed, ANDREA with CPap History of Any Multi-Drug Resistant Organisms: None Reported Past Surgical History: Adenoidectomy, Back Surgery, Heart Catheterization With Stent, Hernia Repair, Joint Replacement, Orthopedic Surgery, Prostate Surgery, Tonsillectomy Additional Past Surgical History / Comment(s): PCI with stent in 2012, prostate biopsies, laser vaporization of prostrate, bilateral inquinal hernia repairs, EGD/colonoscopy, supraorbital percutaneous nerve stimulator trial, epidural injections, low back surgery, R foot hammer toe surgery, bilateral total knee replacements, bilateral cataract removals/lens implants, hemorrhoidectomy, R side of head vein biopsy, left hip arthroplasty 2 weeks ago Past Anesthesia/Blood Transfusion Reactions: No Reported Reaction Additional Past Anesthesia/Blood Transfusion Reaction / Comment(s): Pt has received blood in past without reaction. Date of Last Stent Placement:: 2012 Past Psychological History: No Psychological Hx Reported Smoking Status: Never smoker Past Alcohol Use History: None Reported Past Drug Use History: None Reported - Past Family History Brother(s) Family Medical History: No Reported History Additional Family Medical History / Comment(s): Patient has 3 brothers with no major medical problems. Sister(s) Family Medical History: Hypertension Additional Family Medical History / Comment(s): Patient has 3 sisters that are a ll alive. 2 have high blood pressure. One has diabetes and stroke and is 81 years old. And all have history of tremors. Son(s) Family Medical History: No Reported History Additional Family Medical History / Comment(s): Patient has 3 sons and one daughter with no major medical problems. Father Family Medical History: Myocardial Infarction (AR) Additional Family Medical History / Comment(s): Father at age 73 with history of Parkinson's disease, bowel cancer, bone cancer. Mother Family Medical History: No Reported History, Myocardial Infarction (AR) Additional Family Medical History / Comment(s): Mother at age 85 with history of hypertension and dementia. General Exam Limitations: altered mental status General appearance: alert, in no apparent distress, other (This is a well- developed, well-nourished elderly male patient in no acute distress. Vital signs upon presentation are temperature 97.2F, pulse 63, respirations 18, blood pressure 125/77, pulse ox 100% on room air.) Head exam: Present: atraumatic, normocephalic, normal inspection Eye exam: Present: normal appearance, PERRL, EOMI. Absent: scleral icterus, conjunctival injection, nystagmus, periorbital swelling ENT exam: Present: normal exam, normal oropharynx Respiratory exam: Present: normal lung sounds bilaterally. Absent: respiratory distress, wheezes, rales, rhonchi, stridor Cardiovascular Exam: Present: regular rate, normal rhythm, normal heart sounds. Absent: systolic murmur, diastolic murmur, rubs, gallop, clicks GI/Abdominal exam: Present: soft, normal bowel sounds. Absent: distended, tenderness, guarding, rebound, rigid Neurological exam: Present: alert, CN II-XII intact. Absent: oriented X3 (Oriented 2) Expanded Speech: Present: fluid speech Cranial nerves: EOM's Intact: Normal Motor strength exam: RUE: 4, LUE: 4, RLE: 3, LLE: 3 Psychiatric exam: Present: normal affect, normal mood Skin exam: Present: warm, dry, intact, normal color. Absent: rash Course Vital Signs 05/13/20 05/13/20 05/13/20 13:27 14:47 15:15 Temperature 97.2 F L Pulse Rate 63 Respiratory 18 Rate Blood Pressure 125/77 129/87 153/86 O2 Sat by Pulse 100 Oximetry 05/13/20 05/13/20 05/13/20 15:30 16:00 16:30 Temperature Pulse Rate Respiratory Rate Blood Pressure 153/86 156/97 151/84 O2 Sat by Pulse 96 97 Oximetry 05/13/20 05/13/20 05/13/20 17:00 17:30 17:45 Temperature 97.9 F 97.8 F Pulse Rate 69 73 Respiratory 17 18 Rate Blood Pressure 161/87 118/99 146/89 O2 Sat by Pulse 93 L 94 L Oximetry Medical Decision Making - Medical Decision Making 84-year-old male patient presented to the emergency department today for evaluation after having an episode where he was unresponsive and then postictal. Patient does have a history of seizures, has been having more frequent episodes like this over the last couple of weeks. Did to the hospital and had a full evaluation including electrolyte correction, neurology evaluation, EEG. Medications were adjusted he is now taking Keppra and Vimpat. Labs reviewed today reveal sodium 133, labs are relatively unremarkable. EKG showed normal sinus rhythm. CT of the brain is negative. Dr. Lawson the patient's PCP as well as admitting physician at the hospital here with like him transferred to [facility] for further evaluation. Patient and family are agreeable with this plan. Patient did have a [place] here for back pain, he does take this at home. - Lab Data Result diagrams: 05/13/20 14:01 05/13/20 14:01 Lab Results 05/13/20 05/13/20 05/13/20 Range/Units 14:01 14:01 14:01 WBC 4.3 (3.8-10.6) k/uL RBC 3.62 L (4.30-5.90) m/uL Hgb 10.5 L (13.0-17.5) gm/dL Hct 32.6 L (39.0-53.0) % MCV 90.2 (80.0-100.0) fL MCH 29.0 (25.0-35.0) pg MCHC 32.1 (31.0-37.0) g/dL RDW 15.5 (11.5-15.5) % Plt Count 273 (150-450) k/uL Neutrophils % 71 % Lymphocytes % 16 % Monocytes % 6 % Eosinophils % 4 % Basophils % 1 % Neutrophils # 3.1 (1.3-7.7) k/uL Lymphocytes # 0.7 L (1.0-4.8) k/uL Monocytes # 0.3 (0-1.0) k/uL Eosinophils # 0.2 (0-0.7) k/uL Basophils # 0.1 (0-0.2) k/uL PT 14.0 H (9.0-12.0) sec INR 1.4 H (<1.2) APTT 32.4 H (22.0-30.0) sec Sodium 133 L (137-145) mmol/L Potassium 4.0 (3.5-5.1) mmol/L Chloride 100 (98-107) mmol/L Carbon Dioxide 26 (22-30) mmol/L Anion Gap 7 mmol/L BUN 12 (9-20) mg/dL Creatinine 0.69 (0.66-1.25) mg/dL Est GFR (CKD-EPI)AfAm >90 (>60 ml/min/1.73 sqM) Est GFR (CKD-EPI)NonAf 88 (>60 ml/min/1.73 sqM) Glucose 119 H (74-99) mg/dL Calcium 9.2 (8.4-10.2) mg/dL Magnesium 1.8 (1.6-2.3) mg/dL Total Bilirubin 0.7 (0.2-1.3) mg/dL AST 28 (17-59) U/L ALT 14 (4-49) U/L Alkaline Phosphatase 79 (38-126) U/L Troponin I (0.000-0.034) ng/mL Total Protein 6.0 L (6.3-8.2) g/dL Albumin 3.6 (3.5-5.0) g/dL Urine Color Urine Appearance (Clear) Urine pH (5.0-8.0) Ur Specific [place] (1.001-1.035) Urine Protein (Negative) Urine Glucose (UA) (Negative) Urine Ketones (Negative) Urine Blood (Negative) Urine Nitrite (Negative) Urine Bilirubin (Negative) Urine Urobilinogen (<2.0) mg/dL Ur Leukocyte Esterase (Negative) Urine RBC (0-5) /hpf Urine WBC (0-5) /hpf Ur Squamous Epith Cells (0-4) /hpf Hyaline Casts (0-2) /lpf Urine Mucus (None) /hpf 05/13/20 05/13/20 Range/Units 14:01 14:04 WBC (3.8-10.6) k/uL RBC (4.30-5.90) m/uL Hgb (13.0-17.5) gm/dL Hct (39.0-53.0) % MCV (80.0-100.0) fL MCH (25.0-35.0) pg MCHC (31.0-37.0) g/dL RDW (11.5-15.5) % Plt Count (150-450) k/uL Neutrophils % % Lymphocytes % % Monocytes % % Eosinophils % % Basophils % % Neutrophils # (1.3-7.7) k/uL Lymphocytes # (1.0-4.8) k/uL Monocytes # (0-1.0) k/uL Eosinophils # (0-0.7) k/uL Basophils # (0-0.2) k/uL PT (9.0-12.0) sec INR (<1.2) APTT (22.0-30.0) sec Sodium (137-145) mmol/L Potassium (3.5-5.1) mmol/L Chloride (98-107) mmol/L Carbon Dioxide (22-30) mmol/L Anion Gap mmol/L BUN (9-20) mg/dL Creatinine (0.66-1.25) mg/dL Est GFR (CKD-EPI)AfAm (>60 ml/min/1.73 sqM) Est GFR (CKD-EPI)NonAf (>60 ml/min/1.73 sqM) Glucose (74-99) mg/dL Calcium (8.4-10.2) mg/dL Magnesium (1.6-2.3) mg/dL Total Bilirubin (0.2-1.3) mg/dL AST (17-59) U/L ALT (4-49) U/L Alkaline Phosphatase (38-126) U/L Troponin I 0.013 (0.000-0.034) ng/mL Total Protein (6.3-8.2) g/dL Albumin (3.5-5.0) g/dL Urine Color Light Red Urine Appearance Cloudy (Clear) Urine pH 6.0 (5.0-8.0) Ur Specific [place] 1.024 (1.001-1.035) Urine Protein 2+ H (Negative) Urine Glucose (UA) Negative (Negative) Urine Ketones Negative (Negative) Urine Blood Large H (Negative) Urine Nitrite Negative (Negative) Urine Bilirubin Negative (Negative) Urine Urobilinogen <2.0 (<2.0) mg/dL Ur Leukocyte Esterase Small H (Negative) Urine RBC >182 H (0-5) /hpf Urine WBC 25 H (0-5) /hpf Ur Squamous Epith Cells 1 (0-4) /hpf Hyaline Casts 17 H (0-2) /lpf Urine Mucus Many H (None) /hpf - EKG Data -: EKG Interpreted by In EKG Comments: EKG obtained at 1340 shows normal sinus rhythm with a prolonged QT interval. Ventricular rate is 63, MD interval 184, QRS duration 90, QT 470, QTC 480. No evidence of ST elevation or depression. - Radiology Data Radiology results: report reviewed, image reviewed CT brain without contrast was obtained. Report was reviewed in its entirety. Impression by Dr. White shows no acute intracranial hemorrhage, midline shift, or mass effect. Volume loss and periventricular white matter hypodensities likely sequela of chronic microvascular ischemic change. Disposition Clinical Impression: Recurrent seizures Disposition: OTHER INSTITUTION NOT DEFINED Condition: Serious Referrals: Louis Lawson MD [Primary Care Provider] - 1-2 days - Out of Hospital Transfer - Req. Specs Out of Hospital Transfer - Requested Specifics: Other Emergency Center ([facility])
[2020-05-13 14:22] LABS: Basophils # (A) 0.1 k/uL (0-0.2); Basophils % (A) 1 %; Eosinophils # (A) 0.2 k/uL (0-0.7); Eosinophils % (A) 4 %; HCT 32.6 % (39.0-53.0); HGB 10.5 gm/dL (13.0-17.5); Lymphocytes # (A) 0.7 k/uL (1.0-4.8); Lymphocytes % (A) 16 %; MCHC 32.1 g/dL (31.0-37.0); MCV 90.2 fL (80.0-100.0); Mean Platelet Volume 6.8; Monocytes # (A) 0.3 k/uL (0-1.0); Monocytes % (A) 6 %; Neutrophils # (A) 3.1 k/uL (1.3-7.7); Neutrophils % (A) 71 %; Platelet Count 273 k/uL (150-450); RBC 3.62 m/uL (4.30-5.90); RDW 15.5 % (11.5-15.5); WBC 4.3 k/uL (3.8-10.6)
[2020-05-13 14:35] LABS: ALT 14 U/L (4-49); AST 28 U/L (17-59); African American GFR (CKD) >90 (>60 ml/min/1.73 sqM); Albumin 3.6 g/dL (3.5-5.0); Alkaline Phosphatase 79 U/L (38-126); Anion Gap 7 mmol/L; Blood Urea Nitrogen 12 mg/dL (9-20); Calcium 9.2 mg/dL (8.4-10.2); Carbon Dioxide 26 mmol/L (22-30); Chloride 100 mmol/L (98-107); Glucose 119 mg/dL (74-99); Magnesium 1.8 mg/dL (1.6-2.3); Non-African American GFR(CKD) 88 (>60 ml/min/1.73 sqM); Sodium 133 mmol/L (137-145); Total Bilirubin 0.7 mg/dL (0.2-1.3)
--- NOTE | 2020-05-13 14:35 | CT ---
EXAMINATION TYPE: CT brain wo con DATE OF EXAM: 05/13/2020 HISTORY: Seizure activity. CT DLP: 1110.4 mGycm. Automated Exposure Control for Dose Reduction was Utilized. TECHNIQUE: CT scan of the head is performed without contrast. COMPARISON: CT brain 04/28/2020 FINDINGS: There is no acute intracranial hemorrhage, midline shift, or mass effect identified. There is general ized volume loss. Redemonstrated periventricular white matter hypodensities likely sequela of chronic microvascular ischemic change. No extra-axial fluid collection. Bones and extracranial soft tissues are intact. The globes are grossly symmetric. Visualized sinuses and mastoid air cells are clear. IMPRESSION: 1. No acute intracranial hemorrhage, midline shift, or mass effect. 2. Volume loss and periventricular white matter hypodensities likely sequela of chronic microvascular ischemic change.
[2020-05-13 14:47] LABS: INR 1.4 (<1.2); Partial Thromboplastin Time 32.4 sec (22.0-30.0)
[2020-05-13 16:10] LABS: Appearance,Urine Cloudy (Clear); Bilirubin,Urine Negative (Negative); Blood,Urine Large (Negative); Color,Urine Light Red; Glucose,Urine (UA) Negative (Negative); Hyaline Casts,Urine 17 /lpf (0-2); Ketones,Urine Negative (Negative); Leukocyte Esterase,Urine Small (Negative); Mucus,Urine Many /hpf; Nitrite,Urine Negative (Negative); Protein,Urine 2+ (Negative); RBC,Urine >182 /hpf (0-5); Specific Gravity,Urine 1.024 (1.001-1.035); Squamous Epithelial Cell,Urine 1 /hpf (0-4); Urobilinogen,Urine <2.0 mg/dL (<2.0); WBC,Urine 25 /hpf (0-5)
[2020-05-13] MEDS ORDERED: HYDROcodone/APAP 10-325MG 1 EACH TAB PO ONE (16:31)
[2020-05-13 17:45] VITALS: BP 146/89; PULSE 73; RESP 18; TEMP 97.8
== END 2020-05-13 18:15 | disposition other institution (70) ==
LOC: EC 13:21
DX: G40.909 Epilepsy, unspecified, not intractable, without status epilepticus (principal); G47.33 Obstructive sleep apnea (adult) (pediatric); I10 Essential (primary) hypertension; I25.110 Atherosclerotic heart disease of native coronary artery with unstable angina pectoris; H40.9 Unspecified glaucoma; E78.5 Hyperlipidemia, unspecified; K21.9 Gastro-esophageal reflux disease without esophagitis; G20 Parkinson's disease; N20.0 Calculus of kidney; M54.9 Dorsalgia, unspecified; D64.9 Anemia, unspecified; Z79.899 Other long term (current) drug therapy; Z88.8 Allergy status to other drugs, medicaments and biological substances; Z88.5 Allergy status to narcotic agent; Z96.653 Presence of artificial knee joint, bilateral; Z98.41 Cataract extraction status, right eye; Z98.42 Cataract extraction status, left eye; Z96.1 Presence of intraocular lens; Z96.642 Presence of left artificial hip joint; Z86.73 Personal history of transient ischemic attack (TIA), and cerebral infarction without residual deficits; Z85.46 Personal history of malignant neoplasm of prostate; Z99.89 Dependence on other enabling machines and devices
CPT/HCPCS: 36415; 70450; 80053; 80177; 81001; 83735; 84484; 85025; 85610; 85730; 87086; 93005; 96360; 96361; 99285

== ENCOUNTER 2020-05-19 13:48 | Observation (INO) | payer MEDICARE ==
[2020-05-19] MEDS ORDERED: SODIUM CHLORIDE 0.9% 500 ML 500 ML IV STA (14:19)
[2020-05-19 15:15] LABS: Basophils % (A) 1 %; Eosinophils # (A) 0.1 k/uL (0-0.7); Eosinophils % (A) 2 %; HCT 34.1 % (39.0-53.0); HGB 10.9 gm/dL (13.0-17.5); Lymphocytes # (A) 0.8 k/uL (1.0-4.8); Lymphocytes % (A) 17 %; MCH 28.8 pg (25.0-35.0); Monocytes # (A) 0.3 k/uL (0-1.0); Monocytes % (A) 6 %; Neutrophils # (A) 3.5 k/uL (1.3-7.7); Neutrophils % (A) 72 %; Platelet Count 243 k/uL (150-450); RBC 3.79 m/uL (4.30-5.90); RDW 15.3 % (11.5-15.5); WBC 4.9 k/uL (3.8-10.6)
--- NOTE | 2020-05-19 15:23 | XR ---
EXAMINATION TYPE: XR chest 2V DATE OF EXAM: 05/19/2020 COMPARISON: 04/16/2020. Correlation CT 04/16/2020 HISTORY: 84-year-old male with chest pain and shortness of breath TECHNIQUE: AP and lateral views FINDINGS: The heart is mildly enlarged. Right paratracheal soft tissue prominence corresponds to vascular ectas ia when correlating with the recent 04/16/2020 CT chest. Low lung volumes and crowded vascular markings. Some patchy posterior basilar opacity on the lateral view. IMPRESSION: 1. Hypoventilatory changes. 2. Some patchy opacity at the lung bases likely represent atelectasis rather than early infiltrates. Follow-up as indicated. We note recent CT that was positive for bilateral pulmonary emboli.
--- NOTE | 2020-05-19 15:26 | CT ---
EXAMINATION TYPE: CT brain wo con DATE OF EXAM: 05/19/2020 COMPARISON: 05/13/2020 HISTORY: 84-year-old male altered mental status, confusion TECHNIQUE: Examination was done in axial plane without intravenous contrast. Coronal and sagittal r econstructions performed. CT DLP: 1099.4 mGycm Automated exposure control for dose reduction was used. FINDINGS: There is no evidence of acute intracranial hemorrhage, acute ischemic changes, mass, mass-effect, or extra-axial fluid collection. There is no effacement of cerebral sulci or basal subarachnoid cister ns. Redemonstrated central cerebral atrophy with secondary mild prominence to the ventricular system. Con fluent white matter hypodensities both cerebral hemispheres unchanged with scattered focal areas of d eep white matter and subcortical hypodensity, likely old white matter infarcts, unchanged. No midline shift. Arora-white matter differentiation is maintained. Undulating nasal septum. Trace mucosal thickening ethmoid air cells. Mastoid air cells well pneumatiz ed. Orbits and globes appear intact. IMPRESSION: No acute intracranial abnormality seen. Similar central cerebral atrophy and confluent changes of chr onic small vessel ischemic disease.
--- NOTE | 2020-05-19 15:27 | ED ---
General Adult HPI - General Chief complaint: Recheck/Abnormal Lab/Rx Stated complaint: Syncope Time Seen by Provider: 05/19/20 14:06 Source: patient, EMS, RN notes reviewed, Caregiver Mode of arrival: EMS Limitations: no limitations - History of Present Illness Initial comments: 84-year-old male with a complicated past medical history including multiple TIAs, Parkinson's disease, CVA presents to the emergency room for a chief complaint of unresponsive episode. Patient is a patient at [facility]. He had an episode of unresponsiveness for about 20 minutes where he was only responding to pain. He then returned to baseline. He apparently has a history of seizures disorders however this was not witnessed. Apparently patient has had several of these episodes at [facility] and generally they are normal for him and he always returns to baseline. However a different physician was covering today and wanted him to be evaluated emergently. Patient states he feels fine at this time.Patient has no other complaints at this time including shortness of breath, chest pain, abdominal pain, nausea or vomiting, headache, or visual changes. - Related Data Home Medications Medication Instructions Recorded Confirmed Montelukast [Singulair] 10 mg PO HS@209909/19/15 04/28/20 Cholecalciferol [Vitamin D3 (25 5,000 unit PO DAILY@17003/05/17 04/28/20 Mcg = 1000 Iu)] Ferrous Sulfate [Iron (65 MG 325 mg PO DAILY@1700 07/14/18 04/28/20 Elemental)] Brimonidine Tartrate/Timolol 1 drop LEFT EYE BID@0800,1700 08/23/18 04/28/20 [Combigan 0.2%-0.5% Eye Drops] carvediloL [Carvedilol] 25 mg PO BID@0800,1700 08/23/18 04/28/20 Baclofen 10 mg PO TID PRN 04/16/20 04/28/20 Cyanocobalamin (Vitamin B-12) 2,500 mcg PO DAILY@79904/16/20 04/28/20 [Vitamin B-12] Ezetimibe [Zetia] 10 mg PO DAILY@0800 04/16/20 04/28/20 Latanoprost/Pf [Latanoprost 0.005% 1 drop BOTH EYES HS@209904/16/20 04/28/20 Eye Drop] Rosuvastatin Calcium 20 mg PO HS@2100 04/16/20 04/28/20 Losartan Potassium 50 mg PO DAILY@0800 04/28/20 04/28/20 Na Phos,M-B/Na Phos,Di-Ba [Fleet 133 ml RECTAL DAILY PRN 04/28/20 04/28/20 Adult] Pantoprazole [Protonix] 40 mg PO DAILY@0600 04/28/20 04/28/20 Pramipexole [Mirapex] 1 mg PO BID@0800,1700 04/28/20 04/28/20 Sennosides-Docusate Sodium 1 tab PO BID@0800,1700 04/28/20 04/28/20 [Senokot-S] Tamsulosin [Flomax] 0.4 mg PO BID@0800,1700 04/28/20 04/28/20 bisacodyL [Dulcolax] 10 mg RECTAL Q24H PRN 04/28/20 04/28/20 methocarbamoL [Robaxin] 750 mg PO TID PRN 04/28/20 04/28/20 Previous Rx's Medication Instructions Recorded Magnesium Hydroxide [Milk of 2,400 mg PO DAILY PRN ml 04/18/20 Magnesia Concentrate] Buta/APAP/Caf/Cod 34-001-40-30 1 - 2 cap PO Q4H PRN #18 cap MDD 4 05/03/20 [Fioricet w/Cod 64-700-25-30MG] caps HYDROcodone/APAP 10-325MG [[place] 1 tab PO Q5H PRN #12 tab 05/03/20 10-325] Rivaroxaban [Xarelto] 20 mg PO DAILY #30 tab 05/03/20 Sodium Chloride Tab 1 gm PO DAILY tab 05/03/20 Lacosamide [Vimpat] 100 mg PO BID 3 Days #6 tab 05/06/20 levETIRAcetam [Keppra] 1,000 mg PO Q12HR #60 tab 05/06/20 Allergies Allergy/AdvReac Type Severity Reaction Status Date / Time metoclopramide [From Reglan] AdvReac SHAKES Verified 05/13/20 13:35 oxycodone HCl AdvReac Nausea & Verified 05/13/20 13:35 [From OxyContin] Vomiting Review of Systems ROS Statement: Those systems with pertinent positive or pertinent negative responses have been documented in the HPI. ROS Other: All systems not noted in ROS Statement are negative. 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, multiple TIAs, parkinson's disease, neuralgia, neuropathy bilateral hands, legs and feet, thoracic spondylosis, prostrate cancer with surgery/chemo and radiation, UTIs, kidney stones, L eye glaucoma, PVD/bilateral lower extremity edema, caratid stenosis, aemia, bronchitis, lower GI bleed, ANDREA with CPap History of Any Multi-Drug Resistant Organisms: None Reported Past Surgical History: Adenoidectomy, Back Surgery, Heart Catheterization With Stent, Hernia Repair, Joint Replacement, Orthopedic Surgery, Prostate Surgery, Tonsillectomy Additional Past Surgical History / Comment(s): PCI with stent in 2012, prostate biopsies, laser vaporization of prostrate, bilateral inquinal hernia repairs, EGD/colonoscopy, supraorbital percutaneous nerve stimulator trial, epidural injections, low back surgery, R foot hammer toe surgery, bilateral total knee replacements, bilateral cataract removals/lens implants, hemorrhoidectomy, R side of head vein biopsy, left hip arthroplasty 2 weeks ago Past Anesthesia/Blood Transfusion Reactions: No Reported Reaction Additional Past Anesthesia/Blood Transfusion Reaction / Comment(s): Pt has received blood in past without reaction. Date of Last Stent Placement:: 2012 Past Psychological History: No Psychological Hx Reported Smoking Status: Never smoker Past Alcohol Use History: None Reported Past Drug Use History: None Reported - Past Family History Brother(s) Family Medical History: No Reported History Additional Family Medical History / Comment(s): Patient has 3 brothers with no major medical problems. Sister(s) Family Medical History: Hypertension Additional Family Medical History / Comment(s): Patient has 3 sisters that are all alive. 2 have high blood pressure. One has diabetes and stroke and is 81 years old. And all have history of tremors. Son(s) Family Medical History: No Reported History Additional Family Medical History / Comment(s): Patient has 3 sons and one daughter with no major medical problems. Father Family Medical History: Myocardial Infarction ([place]) Additional Family Medical History / Comment(s): Father at age 73 with history of Parkinson's disease, bowel cancer, bone cancer. Mother Family Medical History: No Reported History, Myocardial Infarction ([place]) Additional Family Medical History / Comment(s): Mother at age 85 with history of hypertension and dementia. General Exam Limitations: no limitations General appearance: alert, in no apparent distress Head exam: Present: atraumatic, normocephalic, normal inspection Eye exam: Present: normal appearance, PERRL, EOMI. Absent: scleral icterus, conjunctival injection, periorbital swelling ENT exam: Present: normal exam, mucous membranes moist Neck exam: Present: normal inspection, full ROM. Absent: tenderness, meningismus, lymphadenopathy Respiratory exam: Present: normal lung sounds bilaterally. Absent: respiratory distress, wheezes, rales, rhonchi, stridor Cardiovascular Exam: Present: regular rate, normal rhythm, normal heart sounds. Absent: systolic murmur, diastolic murmur, rubs, gallop, clicks GI/Abdominal exam: Present: soft, normal bowel sounds. Absent: distended, t enderness, guarding, rebound, rigid Neurological exam: Present: alert, oriented X3, CN II-XII intact, other (GCS 15) Course Vital Signs 05/19/20 05/19/20 05/19/20 13:58 14:04 15:04 Temperature 98 F Pulse Rate 74 72 Respiratory 18 18 18 Rate Blood Pressure 140/90 133/89 O2 Sat by Pulse 96 97 Oximetry 05/19/20 16:00 Temperature Pulse Rate 71 Respiratory 18 Rate Blood Pressure 145/76 O2 Sat by Pulse 97 Oximetry EKG Findings - EKG Comments: EKG Findings:: Normal sinus rhythm, ventricular rate 70, RI interval 178, QTC 476. Medical Decision Making - Medical Decision Making Patient was admitted for these symptoms earlier this month. He was found to have a seizure-like episode while in the hospital. He did have neurology evaluation and EEG. EEG did show epileptiform activity. He started taking Keppra and Vimpat. Patient was then seen about 1 week ago for similar symptoms and transferred to [facility]. He was started on Lacosamide and Briver acetam. reports he was only kept for a short time and discharged to [facility]. Laboratory evaluation was performed. CT brain and chest x-ray were performed which did not show any acute changes. Suspect patient was post ictal given history and recent epileptiform activity on EEG. strongly prefers patient be kept in this hospital. Case was discussed with Dr. Landin who will admit patient with neurology consultation for tomorrow morning. However if patient develops another episode was notified that he will be transferred to another facility. is agreeable to this however specifically does not want transfer to [facility]. - Lab Data Result diagrams: 05/19/20 15:01 05/19/20 15:01 Lab Results 05/19/20 05/19/20 05/19/20 Range/Units 15:01 15:01 15:01 WBC 4.9 (3.8-10.6) k/uL RBC 3.79 L (4.30-5.90) m/uL Hgb 10.9 L (13.0-17.5) gm/dL Hct 34.1 L (39.0-53.0) % MCV 90.0 (80.0-100.0) fL MCH 28.8 (25.0-35.0) pg MCHC 32.0 (31.0-37.0) g/dL RDW 15.3 (11.5-15.5) % Plt Count 243 (150-450) k/uL Neutrophils % 72 % Lymphocytes % 17 % Monocytes % 6 % Eosinophils % 2 % Basophils % 1 % Neutrophils # 3.5 (1.3-7.7) k/uL Lymphocytes # 0.8 L (1.0-4.8) k/uL Monocytes # 0.3 (0-1.0) k/uL Eosinophils # 0.1 (0-0.7) k/uL Basophils # 0.0 (0-0.2) k/uL PT 11.6 (9.0-12.0) sec INR 1.1 (<1.2) APTT 28.7 (22.0-30.0) sec Sodium 135 L (137-145) mmol/L Potassium 3.7 (3.5-5.1) mmol/L Chloride 102 (98-107) mmol/L Carbon Dioxide 25 (22-30) mmol/L Anion Gap 8 mmol/L BUN 12 (9-20) mg/dL Creatinine 0.61 L (0.66-1.25) mg/dL Est GFR (CKD-EPI)AfAm >90 (>60 ml/min/1.73 sqM) Est GFR (CKD-EPI)NonAf >90 (>60 ml/min/1.73 sqM) Glucose 109 H (74-99) mg/dL Calcium 9.5 (8.4-10.2) mg/dL Magnesium 1.8 (1.6-2.3) mg/dL Total Bilirubin 0.7 (0.2-1.3) mg/dL AST 25 (17-59) U/L ALT 12 (4-49) U/L Alkaline Phosphatase 88 (38-126) U/L Troponin I (0.000-0.034) ng/mL Total Protein 6.1 L (6.3-8.2) g/dL Albumin 3.8 (3.5-5.0) g/dL 05/19/20 Range/Units 15:01 WBC (3.8-10.6) k/uL RBC (4.30-5.90) m/uL Hgb (13.0-17.5) gm/dL Hct (39.0-53.0) % MCV (80.0-100.0) fL MCH (25.0-35.0) pg MCHC (31.0-37.0) g/dL RDW (11.5-15.5) % Plt Count (150-450) k/uL Neutrophils % % Lymphocytes % % Monocytes % % Eosinophils % % Basophils % % Neutrophils # (1.3-7.7) k/uL Lymphocytes # (1.0-4.8) k/uL Monocytes # (0-1.0) k/uL Eosinophils # (0-0.7) k/uL Basophils # (0-0.2) k/uL PT (9.0-12.0) sec INR (<1.2) APTT (22.0-30.0) sec Sodium (137-145) mmol/L Potassium (3.5-5.1) mmol/L Chloride (98-107) mmol/L Carbon Dioxide (22-30) mmol/L Anion Gap mmol/L BUN (9-20) mg/dL Creatinine (0.66-1.25) mg/dL Est GFR (CKD-EPI)AfAm (>60 ml/min/1.73 sqM) Est GFR (CKD-EPI)NonAf (>60 ml/min/1.73 sqM) Glucose (74-99) mg/dL Calcium (8.4-10.2) mg/dL Magnesium (1.6-2.3) mg/dL Total Bilirubin (0.2-1.3) mg/dL AST (17-59) U/L ALT (4-49) U/L Alkaline Phosphatase (38-126) U/L Troponin I 0.013 (0.000-0.034) ng/mL Total Protein (6.3-8.2) g/dL Albumin (3.5-5.0) g/dL Disposition Clinical Impression: Altered mental status, Post-ictal state Disposition: ADMITTED IP TO THIS HOSP Is patient prescribed a controlled substance at d/c from ED?: No Referrals: Louis Lawson MD [Primary Care Provider] - 1-2 days Time of Disposition: 16:37
[2020-05-19 15:33] LABS: ALT 12 U/L (4-49); AST 25 U/L (17-59); African American GFR (CKD) >90 (>60 ml/min/1.73 sqM); Albumin 3.8 g/dL (3.5-5.0); Alkaline Phosphatase 88 U/L (38-126); Anion Gap 8 mmol/L; Blood Urea Nitrogen 12 mg/dL (9-20); Calcium 9.5 mg/dL (8.4-10.2); Carbon Dioxide 25 mmol/L (22-30); Chloride 102 mmol/L (98-107); Glucose 109 mg/dL (74-99); Magnesium 1.8 mg/dL (1.6-2.3); Non-African American GFR(CKD) >90 (>60 ml/min/1.73 sqM); Potassium 3.7 mmol/L (3.5-5.1); Sodium 135 mmol/L (137-145); Total Bilirubin 0.7 mg/dL (0.2-1.3); Total Protein 6.1 g/dL (6.3-8.2)
[2020-05-19 15:34] LABS: INR 1.1 (<1.2); Partial Thromboplastin Time 28.7 sec (22.0-30.0); Prothrombin Time 11.6 sec (9.0-12.0)
[2020-05-19] MEDS ORDERED: HYDROcodone/APAP 5-325MG 1 EACH TAB PO STA (15:47)
[2020-05-19] MEDS ORDERED: NALOXONE 0.4 MG/ML 1 ML VIAL IV PRN (16:30)
[2020-05-19] MEDS ORDERED: SODIUM CHLORIDE 0.9% 1,000 ML IV SCH (16:30)
[2020-05-19] MEDS ORDERED: HYDROcodone/APAP 5-325MG 1 EACH TAB PO PRN (16:30)
[2020-05-19] MEDS ORDERED: LORazepam 2 MG/ML INJ IV PRN ×2 (16:30→21:22)
[2020-05-19] MEDS ORDERED: LOSARTAN 50 MG TAB PO STA (21:22)
[2020-05-20] MEDS ORDERED: LOSARTAN 50 MG TAB PO SCH (08:00)
[2020-05-20 08:28] VITALS: BP 153/84; PULSE 74; RESP 18; TEMP 98.4
[2020-05-20] MEDS ORDERED: MAGNESIUM HYDROXIDE 2,400 MG/10 ML CUP PO PRN (09:25)
[2020-05-20] MEDS ORDERED: methocarbamoL 750 MG TAB PO PRN (09:25)
[2020-05-20] MEDS ORDERED: LACOSAMIDE 50 MG TABLET PO SCH ×2 (10:21→21:00)
--- NOTE | 2020-05-20 10:32 | P.CNNES ---
History of Present Illness Consult date: 05/20/20 Requesting physician: Edgar Hernandez Reason for Consult: unresponsive and possible seizure History of Present Illness: This is an 84-year-old left-handed gentleman with medical history of seizure, TIA, Parkinson's disease, left facial droop in 2004, prostate cancer, obstructive sleep apnea, DVT, left hip replacements who presented to the emergency department on 05/19/2020 for an episode of unresponsiveness episode katz spicious for seizure [facility]. The unresponsiveness the episode lasted about 20 minutes where he was only responding to pain. Then he returned to his baseline. He can continue to have these episodes at [facility] and the he would return back to baseline. A new physician at [facility] was covering the day that this happened and that he wanted this to be evaluated. Upon the presented to the hospital the patient was responsive. Hospital workup included: Vital signs is temperature of 98 Fahrenheit, blood pressure 140/90 with a heart rate of 74, respiratory of 18, pulse ox of [address] of the head on 05/19/2020 which was reported as no acute intracranial abnormality seen. Similar central cerebral atrophy and confluent changes of chronic small vessel disease. On presenation his white blood cell was 4.9. Patient presented on 04/28/2020 for numerous episodes of unresponsiveness as well as episodes of tonic-clonic activity. On 2019 and EEG was done and was normal. Patient had the episode on 05/03/2020 of unresponsive found on the chair I personally saw the patient and he was having right shoulder jerking as well as bilateral her feet jerking episode. An EEG was done and shows that seizure and is seemed to come from the right central region. The antiepileptic medication was modified and the patient Keppra was increased up to 1 g and that was started on Vimpat initially 500 mg and then was 1 up to 100 mg twice a day. I spoke with Dr. Lawson, Primary team via phone who stated that patient was transfered to [facility] and had skilled nursing EEG recording and no seizure were capture but was stated that Keppra was cause of his abnormalities. So Keppra was stopped and continued Vimpat 100mg bid. He was discharged according to primary team without further observing once Keppra was held to see if he continued these episodes. At [facility] he was not on Keppra. Currently the patient is only on Keppra 1500 twice a day Review of Systems Review of system: The 12 point system was reviewed and apparent positive and negative per HPI. 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, multiple TIAs, parkinson's disease, neuralgia, neuropathy bilateral hands, legs and feet, thoracic spondylosis, prostrate cancer with surgery/chemo and radiation, UTIs, kidney stones, L eye glaucoma, PVD/bilateral lower extremity edema, caratid stenosis, aemia, bronchitis, lower GI bleed History of Any Multi-Drug Resistant Organisms: None Reported Past Surgical History: Adenoidectomy, Back Surgery, Heart Catheterization With Stent, Hernia Repair, Joint Replacement, Orthopedic Surgery, Prostate Surgery, Tonsillectomy Additional Past Surgical History / Comment(s): PCI with stent in 2012, prostate biopsies, laser vaporization of prostrate, bilateral inquinal hernia repairs, EGD/colonoscopy, supraorbital percutaneous nerve stimulator trial, epidural injections, low back surgery, R foot hammer toe surgery, bilateral total knee replacements, bilateral cataract removals/lens implants, hemorrhoidectomy, R side of head vein biopsy, left hip arthroplasty 2 weeks ago Past Anesthesia/Blood Transfusion Reactions: No Reported Reaction Additional Past Anesthesia/Blood Transfusion Reaction / Comment(s): Pt has received blood in past without reaction. Date of Last Stent Placement:: 2012 Past Psychological History: No Psychological Hx Reported Additional Psychological History / Comment(s): Pt resides with his spouse. He uses a walker to ambulate. Smoking Status: Never smoker Past Alcohol Use History: None Reported Past Drug Use History: None Reported - Past Family History Brother(s) Family Medical History: No Reported History Additional Family Medical History / Comment(s): Patient has 3 brothers with no major medical problems. Sister(s) Family Medical History: Hypertension Additional Family Medical History / Comment(s): Patient has 3 sisters that are all alive. 2 have high blood pressure. One has diabetes and stroke and is 81 years old. And all have history of tremors. Son(s) Family Medical History: No Reported History Additional Family Medical History / Comment(s): Patient has 3 sons and one daughter with no major medical problems. Father Family Medical History: Myocardial Infarction ([place]) Additional Family Medical History / Comment(s): Father at age 73 with history of Parkinson's disease, bowel cancer, bone cancer. Mother Family Medical History: No Reported History, Myocardial Infarction ([place]) Additional Family Medical History / Comment(s): Mother at age 85 with history of hypertension and dementia. Medications and Allergies Home Medications Medication Instructions Recorded Confirmed Type Montelukast [Singulair] 10 mg PO HS@209909/19/15 05/19/20 History Cholecalciferol [Vitamin D3 (25 5,000 unit PO DAILY@169903/05/17 05/19/20 History Mcg = 1000 Iu)] Ferrous Sulfate [Iron (65 MG 325 mg PO DAILY@169907/14/18 05/19/20 History Elemental)] Brimonidine Tartrate/Timolol 1 drop LEFT EYE BID@0800,169908/23/18 05/19/20 History [Combigan 0.2%-0.5% Eye Drops] carvediloL [Carvedilol] 25 mg PO BID@799,209908/23/18 05/19/20 History Cyanocobalamin (Vitamin B-12) 2,500 mcg PO DAILY@79904/16/20 05/19/20 History [Vitamin B-12] Ezetimibe [Zetia] 10 mg PO DAILY@79904/16/20 05/19/20 History Latanoprost/Pf [Latanoprost 0.005% 1 drop BOTH EYES HS@209904/16/20 05/19/20 History Eye Drop] Rosuvastatin Calcium 20 mg PO HS@209904/16/20 05/19/20 History Magnesium Hydroxide [Milk of 2,400 mg PO DAILY PRN ml 04/18/20 05/19/20 Rx Magnesia Concentrate] Losartan Potassium 50 mg PO DAILY@79904/28/20 05/19/20 History Na Phos,M-B/Na Phos,Di-Ba [Fleet 133 ml RECTAL DAILY PRN 04/28/20 05/19/20 History Adult] Pantoprazole [Protonix] 40 mg PO DAILY@0600 04/28/20 05/19/20 History Pramipexole [Mirapex] 1 mg PO BID@0800,1700 04/28/20 05/19/20 History Sennosides-Docusate Sodium 1 tab PO BID@0800,1700 04/28/20 05/19/20 History [Senokot-S] Tamsulosin [Flomax] 0.4 mg PO BID@0800,2100 04/28/20 05/19/20 History bisacodyL [Dulcolax] 10 mg RECTAL Q24H PRN 04/28/20 05/19/20 History methocarbamoL [Robaxin] 750 mg PO TID PRN 04/28/20 05/19/20 History Sodium Chloride Tab 1 gm PO DAILY tab 05/03/20 05/19/20 Rx Brivaracetam [Briviact] 20 mg PO BID@0800,0 05/19/20 05/19/20 History Butalbit/Acetamin/Caff/Codeine 1 - 2 cap PO Q6H PRN 05/19/20 05/19/20 History [Fioricet-Cod 49-811-70-30 Cap] HYDROcodone/APAP 10-325MG [[place] 1 tab PO Q6H PRN 05/19/20 05/19/20 History 10-325] Lacosamide [Vimpat] 100 mg PO BID@0800,2100 05/19/20 05/19/20 History Rivaroxaban [Xarelto] 20 mg PO DAILY@169905/19/20 05/19/20 History Allergies Allergy/AdvReac Type Severity Reaction Status Date / Time metoclopramide [From Reglan] AdvReac SHAKES Verified 05/19/20 20:42 oxycodone HCl AdvReac Nausea & Verified 05/19/20 20:42 [From OxyContin] Vomiting Physical Examination - Vital Signs Vital Signs: Vital Signs Temp Pulse Pulse Resp BP BP Pulse Ox 05/20/20 07:00 98.4 F 74 18 153/84 05/20/20 01:20 97.8 F 87 16 155/86 95 05/19/20 21:19 168/98 05/19/20 20:55 98.1 F 79 16 183/105 96 05/19/20 20:50 97.8 F 80 17 137/77 97 05/19/20 19:00 69 18 120/75 97 05/19/20 18:00 71 18 97 05/19/20 17:00 18 97 05/19/20 16:00 71 18 145/76 97 05/19/20 15:04 72 18 133/89 97 05/19/20 14:04 18 05/19/20 13:58 98 F 74 18 140/90 96 Intake and Output 05/19/20 05/20/20 05/20/20 22:59 06:59 14:59 Intake Total 60 160 Output Total 600 Balance 60 -440 Intake: Intake, IV Titration 60 160 Amount Sodium Chloride 0.9% 1, 60 160 000 ml @ 20 mls/hr IV . Q24H [facility] Rx#:[id number] Output: Urine 600 Other: Voiding Method Indwelling Catheter Weight 91.172 kg GENERAL: The patient is lying in bed and is not in acute distress. CHEST: The heart rate is regular rate rhythm. No murmurs to auscultation. LUNG: Clear to auscultation bilaterally no wheezing noted throughout. Not labored breathing. ABDOMEN/GI: Bowel sounds present in all 4 quadrants. No tenderness to palpation throughout. NEUROLOGICAL: Higher mental function: The patient is awake, alert, oriented to self, place and time. Patient recalled my name correctly upon walking in the room. Patient is following commands. No aphasia and no neglect. Cranial nerves: The pupils are round, equal and reactive to light and accommodation. Visual leon are full to confrontation throughout. Extraocular movement is intact no nystagmus is noted. Facial sensation is normal to touch throughout. The facial strength: left nasolabial flatening.. Hearing is normal bilaterally to hand rub. Tongue is midline and moved [id number] without any difficulty. No dysarthria is noted. Shoulder shrug is normal bilaterally. Motor: Gait is defered. The strength is 5 over 5 throughout. Normal tone and bulk. Has resting tremor of right upper extremity. Cerebellum: Normal finger to nose heel to chin bilaterally. Sensation: Sensation is normal to touch throughout. Reflexes (right/left): 1+ throughout except at ankles 0-1 bilaterally. Plantars are downgoing bilaterally. Results PT of 11.6, INR of 1.1, PTT of 28.7. AST 25, ALTs of 12. - Laboratory Findings CBC and BMP: 05/19/20 15:01 05/20/20 11:32 Abnormal Lab Findings: Abnormal Labs 05/19/20 05/19/20 15:01 15:01 RBC 3.79 L Hgb 10.9 L Hct 34.1 L Lymphocytes # 0.8 L Sodium 135 L Creatinine 0.61 L Glucose 109 H Total Protein 6.1 L Assessment and Plan Assessment: Episodes of unresponsiveness: Possibly due to Seizure Hx of Parkinson's disease Plan: Regarding his seizure: he is currently on Keppra 1500mg bid and Vimpat 100mg bid (was restarted today) in the hospital. Will discontinue Keppra since per Dr. Lawson the patient had skilled nursing EEG recently at [facility] and was told the episode of jerking were due to Keppra. Routine EEG on 05/20/20: Mild encephalopathy and no seizure or epileptiform discharges seen. Recommend transfering the patient to [facility] for skilled nursing EEG since he continue to have these episode of unresponsive and is not on Keppra at [facility]. The patient and his don't want him to be transfered there. So we'll transfer him to [facility]. The plan was discussed with the primary team. Thank you for the consult. Divya Daugherty Neuro-hospitalist Time with Patient: Greater than 30
[2020-05-20 12:00] LABS: ALT 10 U/L (4-49); AST 21 U/L (17-59); African American GFR (CKD) >90 (>60 ml/min/1.73 sqM); Albumin 2.9 g/dL (3.5-5.0); Alkaline Phosphatase 69 U/L (38-126); Anion Gap 6 mmol/L; Blood Urea Nitrogen 10 mg/dL (9-20); Calcium 8.8 mg/dL (8.4-10.2); Carbon Dioxide 24 mmol/L (22-30); Chloride 104 mmol/L (98-107); Glucose 97 mg/dL (74-99); Non-African American GFR(CKD) >90 (>60 ml/min/1.73 sqM); Potassium 3.4 mmol/L (3.5-5.1); Sodium 134 mmol/L (137-145); Total Bilirubin 0.6 mg/dL (0.2-1.3); Total Protein 5.1 g/dL (6.3-8.2)
--- NOTE | 2020-05-20 12:43 | P.HPIM ---
History of Present Illness H&P Date: 05/20/20 Chief Complaint: Syncope HISTORY AND PHYSICAL AND DISCHARGE SUMMARY: History of Present Illness This is an 84-year-old male patient of Dr. Lawson with past medical history of coronary artery disease, Parkinson's disease, recurrent headaches, severe PAD, generalized osteoarthritis, obstructive sleep apnea on CPAP. Patient recently underwent a total left hip arthroplasty with Dr. Horvath at [facility] and was subsequently admitted to [facility] on April 16 due to generalized debility and shortness of breath, found to have bilateral pulmonary embolism and large DVT in the right leg. Patient was discharge to [facility] on Xarelto for subacute rehab and was doing well but over the weekend there was concern for seizure activity. He was readmitted from April 28 through May 06 at which time he was seen by multiple consultants including neurology for seizure activity and adjustments were made on Keppra and patient was started on Vimpat. He was also treated for acute catheter associated urinary tract infection, urinary retention, hematuria and was seen by Dr. Gaspar. Patient was seen by Dr. Reina for hyponatremia with SIADH. Patient was stabilized and discharged back to [facility]. On May 14, patient was seen at [facility] for seizure activity and claimed that seizure or an unresponsive episodes were side effect of the Keppra and the only wanted him on Vimpat only but patient was somehow started also on Briviact. Patient had an unresponsive episode of 20 minutes and was only responding to pain and then return to baseline. Patient was brought into [facility] emergency center for evaluation. He was afebrile, heart rate 74, blood pressure 140/90, pulse ox 96% on room air. EKG was in normal sinus rhythm at rate of 70. Hemoglobin 10.9. WBC 4.9, sodium 135, creatinine 0.6. Blood sugar 109. Troponin negative. CAT scan of the brain revealed no acute intracranial abnormality. Similar central cerebral atrophy including fluid changes of chronic small vessel ischemic change. Chest x-ray reveals hypoventilatory changes. Some patchy opacities at the lung bases likely represent atelectasis rather than early infiltrates. Patient was started on Keppra 1500 mg twice daily and has been admitted to the [facility] floor. Consult requested with neurology and EEG ordered. Patient has been evaluated by neurologist, Dr. Pedroza, and he recommended the patient be transferred back to [facility] for long-term EEG since he continues to have these episodes of unresponsiveness and was not on Keppra at the [facility] facility. Patient's did not want the patient to return to [facility] and shows [facility] instead. Patient will be transferred to [facility] once arrangements are completed. Review of Systems Constitutional: No fever, no chills, no night sweats. No weight change. No weakness, fatigue or lethargy. No daytime sleepiness. EENT: No headache. No blurred vision or double vision, no loss of vision. No loss of Hearing, no ringing in the ears, no dizziness. No nasal drainage or c ongestion. No epistaxis. No sore throat. Lungs: No shortness of breath, cough, no sputum production. No wheezing. Cardiovascular: No chest pain, no lower extremity edema. No palpitations. No paroxysmal nocturnal dyspnea. No orthopnea. No lightheadedness or dizziness. Reports syncopal episodes/seizures. Abdominal: No abdominal pain. No nausea, vomiting. No diarrhea. No constipation. No bloody or tarry stools.. No loss of appetite. Genitourinary: No dysuria, increased frequency, urgency. Reports urinary retention. Musculoskeletal: No myalgias. No muscle weakness, reports gait dysfunction, no frequent falls. No back pain. No neck pain. Integumentary: No wounds, no lesions. No rash or pruritus. No unusual bruising. No change in hair or nails. Neurologic: No aphasia. No facial droop. No change in mentation. No head injury. No headache. No paralysis. No paresthesia. Psychiatric: No depression. No anxiety. No mood swings. Endocrine: No abnormal blood sugars. No weight change. No excessive sweating or thirst. No cold intolerance. Physical Examination Gen: This is an 84-year-old male. He is resting in bed and appears comfortable. HEENT: Head is atraumatic, normocephalic. Pupils equal, round. Sclerae is anicteric. NECK: Supple. No JVD. No lymphadenopathy. No thyromegaly. LUNGS: Clear to auscultation. No wheezes or rhonchi. No intercostal retractions. HEART: Regular rate and rhythm. Systolic ejection murmur. ABDOMEN: Soft. Bowel sounds are present. No masses. No tenderness. Olivo catheter draining clear liane urine. EXTREMITIES: No pedal edema. No calf tenderness. NEUROLOGICAL: Patient is awake, alert and oriented x3. Cranial nerves 2 through 12 are grossly intact. Tremor noted. Assessment and Plan 1. Seizure episodes. Neurology consult appreciated. CAT scan of the head did not show any acute intracranial abnormality. EEG is pending. Patient is currently on Vimpat 100 mg twice daily. 2. Chronic hyponatremia secondary to SIADH. Continue sodium tablet 1 daily. 3. Recent history of catheter associated urinary tract infection, completed antibiotics. 4. Urinary retention. Patient has a chronic Olivo catheter in place. 5. Bilateral pulmonary embolism originating from DVT right leg. Continue Xarelto. 6. Recent history of left total knee arthroplasty. PT and OT. 7. Hypertension. Continue Coreg 25 mg twice daily, losartan 50 mg daily. 8. Hyperlipidemia. Continue Lipitor 40 mg daily, Zetia 10 mg daily. 9. History of CVA. Continue Lipitor 40 mg daily. Aspirin and Plavix were discontinued on last admission due to hematuria and acute blood loss anemia. 10. Coronary artery disease status post angioplasty and stent placement. Continue Lipitor. 11. Benign prostatic hypertrophy with urinary retention with chronic Olivo catheter. Continue Flomax 0.4 mg twice daily. 12. History of seizure disorder. Patient normally follows with Dr. Byrd. 13. Restless leg syndrome. Continue Mirapex 1 mg twice daily. 14. GI prophylaxis. Protonix. 15. DVT prophylaxis. Xarelto. 16. COVID-19 testing may be required prior to transfer to [facility]. CODE STATUS: Full code Patient to be admitted to the hospital for a minimum of 2 night stay. Impression and plan of care have been directed as dictated by the signing physician. Suly Gallo nurse practitioner acting as scribe for signing physician. 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, multiple TIAs, parkinson's disease, neuralgia, neuropathy bilateral hands, legs and feet, thoracic spondylosis, prostrate cancer with surgery/chemo and radiation, UTIs, kidney stones, L eye glaucoma, PVD/bilateral lower extremity edema, caratid stenosis, aemia, bronchitis, lower GI bleed History of Any Multi-Drug Resistant Organisms: None Reported Past Surgical History: Adenoidectomy, Back Surgery, Heart Catheterization With Stent, Hernia Repair, Joint Replacement, Orthopedic Surgery, Prostate Surgery, Tonsillectomy Additional Past Surgical History / Comment(s): PCI with stent in 2012, prostate biopsies, laser vaporization of prostrate, bilateral inquinal hernia repairs, EGD/colonoscopy, supraorbital percutaneous nerve stimulator trial, epidural injections, low back surgery, R foot hammer toe surgery, bilateral total knee replacements, bilateral cataract removals/lens implants, hemorrhoidectomy, R s kvng of head vein biopsy, left hip arthroplasty 2 weeks ago Past Anesthesia/Blood Transfusion Reactions: No Reported Reaction Additional Past Anesthesia/Blood Transfusion Reaction / Comment(s): Pt has received blood in past without reaction. Date of Last Stent Placement:: 2012 Past Psychological History: No Psychological Hx Reported Additional Psychological History / Comment(s): Pt resides with his spouse. He uses a walker to ambulate. Smoking Status: Never smoker Past Alcohol Use History: None Reported Past Drug Use History: None Reported - Past Family History Brother(s) Family Medical History: No Reported History Additional Family Medical History / Comment(s): Patient has 3 brothers with no major medical problems. Sister(s) Family Medical History: Hypertension Additional Family Medical History / Comment(s): Patient has 3 sisters that are all alive. 2 have high blood pressure. One has diabetes and stroke and is 81 years old. And all have history of tremors. Son(s) Family Medical History: No Reported History Additional Family Medical History / Comment(s): Patient has 3 sons and one daugh ter with no major medical problems. Father Family Medical History: Myocardial Infarction (RI) Additional Family Medical History / Comment(s): Father at age 73 with history of Parkinson's disease, bowel cancer, bone cancer. Mother Family Medical History: No Reported History, Myocardial Infarction (RI) Additional Family Medical History / Comment(s): Mother at age 85 with history of hypertension and dementia. Medications and Allergies Home Medications Medication Instructions Recorded Confirmed Type Montelukast [Singulair] 10 mg PO HS@209909/19/15 05/19/20 History Cholecalciferol [Vitamin D3 (25 5,000 unit PO DAILY@169903/05/17 05/19/20 History Mcg = 1000 Iu)] Ferrous Sulfate [Iron (65 MG 325 mg PO DAILY@169907/14/18 05/19/20 History Elemental)] Brimonidine Tartrate/Timolol 1 drop LEFT EYE BID@799,169908/23/18 05/19/20 History [Combigan 0.2%-0.5% Eye Drops] carvediloL [Carvedilol] 25 mg PO BID@799,209908/23/18 05/19/20 History Cyanocobalamin (Vitamin B-12) 2,500 mcg PO DAILY@79904/16/20 05/19/20 History [Vitamin B-12] Ezetimibe [Zetia] 10 mg PO DAILY@79904/16/20 05/19/20 History Latanoprost/Pf [Latanoprost 0.005% 1 drop BOTH EYES HS@209904/16/20 05/19/20 History Eye Drop] Rosuvastatin Calcium 20 mg PO HS@209904/16/20 05/19/20 History Magnesium Hydroxide [Milk of 2,400 mg PO DAILY PRN ml 04/18/20 05/19/20 Rx Magnesia Concentrate] Losartan Potassium 50 mg PO DAILY@79904/28/20 05/19/20 History Na Phos,M-B/Na Phos,Di-Ba [Fleet 133 ml RECTAL DAILY PRN 04/28/20 05/19/20 History Adult] Pantoprazole [Protonix] 40 mg PO DAILY@0604/28/20 05/19/20 History Pramipexole [Mirapex] 1 mg PO BID@08,169904/28/20 05/19/20 History Sennosides-Docusate Sodium 1 tab PO BID@0800,169904/28/20 05/19/20 History [Senokot-S] Tamsulosin [Flomax] 0.4 mg PO BID@799,209904/28/20 05/19/20 History bisacodyL [Dulcolax] 10 mg RECTAL Q24H PRN 04/28/20 05/19/20 History methocarbamoL [Robaxin] 750 mg PO TID PRN 04/28/20 05/19/20 History Sodium Chloride Tab 1 gm PO DAILY tab 05/03/20 05/19/20 Rx Brivaracetam [Briviact] 20 mg PO BID@0800,1700 05/19/20 05/19/20 History Butalbit/Acetamin/Caff/Codeine 1 - 2 cap PO Q6H PRN 05/19/20 05/19/20 History [Fioricet-Cod 86-069-50-30 Cap] HYDROcodone/APAP 10-325MG [Council 1 tab PO Q6H PRN 05/19/20 05/19/20 History 10-325] Lacosamide [Vimpat] 100 mg PO BID@0800,2100 05/19/20 05/19/20 History Rivaroxaban [Xarelto] 20 mg PO DAILY@1700 05/19/20 05/19/20 History Allergies Allergy/AdvReac Type Severity Reaction Status Date / Time metoclopramide [From Reglan] AdvReac SHAKES Verified 05/19/20 20:42 oxycodone HCl AdvReac Nausea & Verified 05/19/20 20:42 [From OxyContin] Vomiting Physical Exam Vitals: Vital Signs Temp Pulse Pulse Resp BP BP Pulse Ox 05/20/20 07:00 98.4 F 74 18 153/84 05/20/20 01:20 97.8 F 87 16 155/86 95 05/19/20 21:19 168/98 05/19/20 20:55 98.1 F 79 16 183/105 96 05/19/20 20:50 97.8 F 80 17 137/77 97 05/19/20 19:00 69 18 120/75 97 05/19/20 18:00 71 18 97 05/19/20 17:00 18 97 05/19/20 16:00 71 18 145/76 97 05/19/20 15:04 72 18 133/89 97 05/19/20 14:04 18 05/19/20 13:58 98 F 74 18 140/90 96 Intake and Output 05/19/20 05/20/20 05/20/20 22:59 06:59 14:59 Intake Total 60 160 Output Total 600 Balance 60 -440 Intake: Intake, IV Titration 60 160 Amount Sodium Chloride 0.9% 1, 60 160 000 ml @ 20 mls/hr IV . Q24H [facility] Rx#:[id number] Output: Urine 600 Other: Voiding Method Indwelling Catheter Weight 91.172 kg Results CBC & Chem 7: 05/19/20 15:01 05/20/20 11:32 Labs: Abnormal Lab Results - Last 24 Hours (Table) 05/19/20 05/19/20 Range/Units 15:01 15:01 RBC 3.79 L (4.30-5.90) m/uL Hgb 10.9 L (13.0-17.5) gm/dL Hct 34.1 L (39.0-53.0) % Lymphocytes # 0.8 L (1.0-4.8) k/uL Sodium 135 L (137-145) mmol/L Creatinine 0.61 L (0.66-1.25) mg/dL Glucose 109 H (74-99) mg/dL Total Protein 6.1 L (6.3-8.2) g/dL Thrombosis Risk Factor Assmnt - Choose All That Apply Any of the Below Risk Factors Present?: No Other Risk Factors: Yes Each Risk Factor Represents 3 Points: Age 75 years or older Other congenital or acquired thrombophilia - If yes, enter type in comment: No Thrombosis Risk Factor Assessment Total Risk Factor Score: 3 Thrombosis Risk Factor Assessment Level: Moderate Risk
[2020-05-20] MEDS ORDERED: RIVAROXABAN 20 MG TAB PO SCH (17:00)
[2020-05-20] MEDS ORDERED: BRIVARACETAM PO SCH (17:00)
[2020-05-20] MEDS ORDERED: PRAMIPEXOLE 1 MG TAB PO SCH (17:00)
[2020-05-20] MEDS ORDERED: SENNOSIDES-DOCUSATE SODIUM 1 EACH TAB PO SCH (17:00)
[2020-05-20] MEDS ORDERED: BRIMONIDINE TARTRATE 0.2% DROPS 5 ML BTL LEFT EYE SCH (17:00)
[2020-05-20] MEDS ORDERED: TIMOLOL 0.5% OPHTH DROPS 5 ML BTL LEFT EYE SCH (17:00)
--- NOTE | 2020-05-20 17:56 | EEG ---
ELECTROENCEPHALOGRAM REPORT DATE OF SERVICE: 05/20/2020 CLINICAL HISTORY: This is an 84-year-old gentleman with a history of seizure and Parkinson's disease who presented from rehab facility on 05/19/2020 for episode of unresponsiveness. This video EEG was obtained to evaluate for seizure and epileptiform activity. RELEVANT MEDICATION: The patient is currently on Keppra 1500 mg b.i.d. and Vimpat 100 mg b.i.d. EEG TYPE: A routine 21-channel EEG was performed with video using the 10/20 electrode placement system. DESCRIPTION: Wakefulness, drowsiness and stage II sleep are obtained. During wakefulness, there is a posterior-dominant rhythm of low to moderate voltage that is well modulated of 6.5 to 7.5 hertz. During drowsiness there is slowing and attenuation of the background activity. During stage II sleep there are sleep spindles and K complexes. Interictal and ictal: None. ACTIVATION PROCEDURE: Photic stimulation did not evoke a posterior driving response. Hyperventilation was not performed because of the patient's clinical history. EEG DIAGNOSIS: Abnormal routine EEG due to background slowing. CLINICAL INTERPRETATION: This is an abnormal routine awake, drowsy and asleep EEG suggestive of mild encephalopathy of unspecified etiology. There is no focal slowing. There are no interictal or seizure seen during this study. Clinical correlation is recommended. MMODL / IJN: [id number] / MTDD
[2020-05-20] MEDS ORDERED: MONTELUKAST 10 MG TAB PO SCH (21:00)
[2020-05-20] MEDS ORDERED: TAMSULOSIN 0.4 MG CAP.ER.24H PO SCH (21:00)
[2020-05-20] MEDS ORDERED: ATORVASTATIN 40 MG TAB PO SCH (21:00)
[2020-05-20] MEDS ORDERED: LATANOPROST 0.005% OPHTH DROPS 2.5 ML BTL BOTH EYES SCH (21:00)
[2020-05-20] MEDS ORDERED: carvediloL 12.5 MG TAB PO SCH (21:23)
[2020-05-21] MEDS ORDERED: PANTOPRAZOLE 40 MG TABLET PO SCH (06:00)
[2020-05-21] MEDS ORDERED: SODIUM CHLORIDE TAB 1 GM TAB PO SCH (09:00)
== END 2020-05-20 14:34 | disposition other institution (70) ==
LOC: EC 13:48 → 4SSUR 16:15
PROVIDERS: ADMIT Internal Medicine; ATTEND Internal Medicine
DX: R41.82 Altered mental status, unspecified (principal); I25.10 Atherosclerotic heart disease of native coronary artery without angina pectoris; G20 Parkinson's disease; I73.9 Peripheral vascular disease, unspecified; M15.9 Polyosteoarthritis, unspecified; G47.33 Obstructive sleep apnea (adult) (pediatric); Z79.01 Long term (current) use of anticoagulants; Z79.899 Other long term (current) drug therapy; Z96.642 Presence of left artificial hip joint; Z96.1 Presence of intraocular lens; Z96.653 Presence of artificial knee joint, bilateral; Z95.5 Presence of coronary angioplasty implant and graft; E78.5 Hyperlipidemia, unspecified; G25.81 Restless legs syndrome; G40.909 Epilepsy, unspecified, not intractable, without status epilepticus; I10 Essential (primary) hypertension; N40.1 Benign prostatic hyperplasia with lower urinary tract symptoms; R33.8 Other retention of urine; Z85.46 Personal history of malignant neoplasm of prostate; Z86.73 Personal history of transient ischemic attack (TIA), and cerebral infarction without residual deficits
CPT/HCPCS: 99285; 36415; 95819; 93005; 80053 ×2; 83605; 83735; 84484; 85025; 85610; 85730; 84146; 71046; 70450; G0378 ×2

== ENCOUNTER 2020-05-26 18:33 | Emergency (ER) | payer MEDICARE ==
--- NOTE | 2020-05-26 18:42 | ED ---
General Adult HPI - General Stated complaint: poss stroke Source: RN notes reviewed, old records reviewed - History of Present Illness Initial comments: 84-year-old male history of seizure disorder, TIA, previous CVA presenting with altered mental status, severe, and right-sided weakness. Patient's symptoms onset was 1750, this was a sudden onset while eating dinner. He was confused according to EMS, history was obtained from EMS who obtained history from the patient's family members. He has history of recurrent seizure and is currently on Vimpat and Keppra. Also he is on Xarelto. Patient is unable to contribute to the history. - Related Data Home Medications Medication Instructions Recorded Confirmed Montelukast [Singulair] 10 mg PO HS@209909/19/15 05/19/20 Cholecalciferol [Vitamin D3 (25 5,000 unit PO DAILY@169903/05/17 05/19/20 Mcg = 1000 Iu)] Ferrous Sulfate [Iron (65 MG 325 mg PO DAILY@169907/14/18 05/19/20 Elemental)] Brimonidine Tartrate/Timolol 1 drop LEFT EYE BID@0800,169908/23/18 05/19/20 [Combigan 0.2%-0.5% Eye Drops] carvediloL [Carvedilol] 25 mg PO BID@799,209908/23/18 05/19/20 Cyanocobalamin (Vitamin B-12) 2,500 mcg PO DAILY@79904/16/20 05/19/20 [Vitamin B-12] Ezetimibe [Zetia] 10 mg PO DAILY@79904/16/20 05/19/20 Latanoprost/Pf [Latanoprost 0.005% 1 drop BOTH EYES HS@209904/16/20 05/19/20 Eye Drop] Rosuvastatin Calcium 20 mg PO HS@209904/16/20 05/19/20 Losartan Potassium 50 mg PO DAILY@79904/28/20 05/19/20 Na Phos,M-B/Na Phos,Di-Ba [Fleet 133 ml RECTAL DAILY PRN 04/28/20 05/19/20 Adult] Pantoprazole [Protonix] 40 mg PO DAILY@59904/28/20 05/19/20 Pramipexole [Mirapex] 1 mg PO BID@0800,1700 04/28/20 05/19/20 Sennosides-Docusate Sodium 1 tab PO BID@0800,1700 04/28/20 05/19/20 [Senokot-S] Tamsulosin [Flomax] 0.4 mg PO BID@0800,2100 04/28/20 05/19/20 bisacodyL [Dulcolax] 10 mg RECTAL Q24H PRN 04/28/20 05/19/20 methocarbamoL [Robaxin] 750 mg PO TID PRN 04/28/20 05/19/20 Brivaracetam [Briviact] 20 mg PO BID@0800,1700 05/19/20 05/19/20 Butalbit/Acetamin/Caff/Codeine 1 - 2 cap PO Q6H PRN 05/19/20 05/19/20 [Fioricet-Cod 86-276-52-30 Cap] HYDROcodone/APAP 10-325MG [[place] 1 tab PO Q6H PRN 05/19/20 05/19/20 10-325] Lacosamide [Vimpat] 100 mg PO BID@0800,2100 05/19/20 05/19/20 Rivaroxaban [Xarelto] 20 mg PO DAILY@1700 05/19/20 05/19/20 Previous Rx's Medication Instructions Recorded Magnesium Hydroxide [Milk of 2,400 mg PO DAILY PRN ml 04/18/20 Magnesia Concentrate] Sodium Chloride Tab 1 gm PO DAILY tab 05/03/20 Allergies Allergy/AdvReac Type Severity Reaction Status Date / Time metoclopramide [From Reglan] AdvReac SHAKES Verified 05/26/20 18:41 oxycodone HCl AdvReac Nausea & Verified 05/26/20 18:41 [From OxyContin] Vomiting Review of Systems ROS Statement: Those systems with pertinent positive or pertinent negative responses have been documented in the HPI. ROS Other: All systems not noted in ROS Statement are negative. 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, multiple TIAs, parkinson's disease, neuralgia, neuropathy bilateral hands, legs and feet, thoracic spondylosis, prostrate cancer with surgery/chemo and radiation, UTIs, kidney stones, L eye glaucoma, PVD/bilateral lower extremity edema, caratid stenosis, aemia, bronchitis, lower GI bleed History of Any Multi-Drug Resistant Organisms: None Reported Past Surgical History: Adenoidectomy, Back Surgery, Heart Catheterization With Stent, Hernia Repair, Joint Replacement, Orthopedic Surgery, Prostate Surgery, Tonsillectomy Additional Past Surgical History / Comment(s): PCI with stent in 2012, prostate biopsies, laser vaporization of prostrate, bilateral inquinal hernia repairs, EGD/colonoscopy, supraorbital percutaneous nerve stimulator trial, epidural injections, low back surgery, R foot hammer toe surgery, bilateral total knee replacements, bilateral cataract removals/lens implants, hemorrhoidectomy, R side of head vein biopsy, left hip arthroplasty 2 weeks ago Past Anesthesia/Blood Transfusion Reactions: No Reported Reaction Additional Past Anesthesia/Blood Transfusion Reaction / Comment(s): Pt has received blood in past without reaction. Date of Last Stent Placement:: 2012 Past Psychological History: No Psychological Hx Reported Additional Psychological History / Comment(s): Pt resides with his spouse. He uses a walker to ambulate. Smoking Status: Never smoker Past Alcohol Use History: None Reported Past Drug Use History: None Reported - Past Family History Brother(s) Family Medical History: No Reported History Additional Family Medical History / Comment(s): Patient has 3 brothers with no major medical problems. Sister(s) Family Medical History: Hypertension Additional Family Medical History / Comment(s): Patient has 3 sisters that are all alive. 2 have high blood pressure. One has diabetes and stroke and is 81 years old. And all have history of tremors. Son(s) Family Medical History: No Reported History Additional Family Medical History / Comment(s): Patient has 3 sons and one daughter with no major medical problems. Father Family Medical History: Myocardial Infarction (HI) Additional Family Medical History / Comment(s): Father at age 73 with history of Parkinson's disease, bowel cancer, bone cancer. Mother Family Medical History: No Reported History, Myocardial Infarction (HI) Additional Family Medical History / Comment(s): Mother at age 85 with history of hypertension and dementia. General Exam General appearance: lethargic Head exam: Present: atraumatic, normocephalic Eye exam: Present: normal appearance, PERRL Neck exam: Present: normal inspection Respiratory exam: Present: normal lung sounds bilaterally. Absent: respiratory distress, wheezes Cardiovascular Exam: Present: regular rate, normal rhythm GI/Abdominal exam: Present: soft. Absent: distended, tenderness, guarding Extremities exam: Present: normal inspection, normal capillary refill Neurological exam: Present: motor sensory deficit (Initial NIH is 15, patient has right-sided weakness, right-sided neglect, he is completely aphasic.). Absent: alert, oriented X3, CN II-XII intact Skin exam: Present: warm, dry, intact. Absent: cyanosis, diaphoretic Course Vital Signs 05/26/20 05/26/20 18:41 19:35 Temperature 98.2 F 98 F Pulse Rate 72 77 Respiratory 18 18 Rate Blood Pressure 172/108 173/104 O2 Sat by Pulse 95 98 Oximetry - Reevaluation(s) Reevaluation #1: 05/26/20 [address] Dami benjamin for neurology, recommends admission at [facility] for further evaluation and treatment. States patient is not a TPA candidate secondary to anticoagulation. Reevaluation #2: 05/26/20 20:21 Patient's family does not want transfer to [facility], requesting transfer to [facility], patient had recent admission with seizures at [facility] EKG Findings - EKG Comments: EKG Findings:: EKG: Normal sinus rhythm, left axis deviation, rate of 72, TN interval 178, QRS duration 92, QTC 473, no ST segment elevation. Medical Decision Making - Medical Decision Making 84-year-old male with sudden onset A. fib and right-sided weakness. Initial NIH is 15 this does improve as in the emergency department. He is not a TPA candidate secondary to cigarette to. He is given As this is concerning for possible seizure with Zach's paralysis versus CVA. CT is performed which is negative for intracranial hemorrhage or mass effect. CT angiography performed showing stable stenosis at the bilateral bifurcation of the carotid arteries, no intracranial abnormality. Case discussed with Dr. Dozier from [facility], will accept patient for transfer. - Lab Data Result diagrams: 05/26/20 19:15 05/26/20 19:15 Lab Results 05/26/20 05/26/20 05/26/20 Range/Units 18:40 18:43 19:15 WBC 3.9 (3.8-10.6) k/uL RBC 3.53 L (4.30-5.90) m/uL Hgb 10.5 L (13.0-17.5) gm/dL Hct 31.5 L (39.0-53.0) % MCV 89.2 (80.0-100.0) fL MCH 29.6 (25.0-35.0) pg MCHC 33.2 (31.0-37.0) g/dL RDW 15.0 (11.5-15.5) % Plt Count 246 (150-450) k/uL Neutrophils % 57 % Lymphocytes % 25 % Monocytes % 9 % Eosinophils % 5 % Basophils % 1 % Neutrophils # 2.2 (1.3-7.7) k/uL Lymphocytes # 1.0 (1.0-4.8) k/uL Monocytes # 0.3 (0-1.0) k/uL Eosinophils # 0.2 (0-0.7) k/uL Basophils # 0.0 (0-0.2) k/uL Sodium (137-145) mmol/L Potassium (3.5-5.1) mmol/L Chloride (98-107) mmol/L Carbon Dioxide (22-30) mmol/L Anion Gap mmol/L BUN (9-20) mg/dL Creatinine (0.66-1.25) mg/dL Est GFR (CKD-EPI)AfAm (>60 ml/min/1.73 sqM) Est GFR (CKD-EPI)NonAf (>60 ml/min/1.73 sqM) Glucose (74-99) mg/dL POC Glucose (mg/dL) 111 H (75-99) mg/dL POC Glu [employer] Sriram Nicholson Calcium (8.4-10.2) mg/dL Total Bilirubin (0.2-1.3) mg/dL AST (17-59) U/L ALT (4-49) U/L Alkaline Phosphatase (38-126) U/L Total Creatine Kinase 70 (55-170) U/L CK-MB (CK-2) 0.8 (0.0-2.4) ng/mL CK-MB (CK-2) Rel Index 1.1 Troponin I 0.016 (0.000-0.034) ng/mL Total Protein (6.3-8.2) g/dL Albumin (3.5-5.0) g/dL 05/26/20 Range/Units 19:15 WBC (3.8-10.6) k/uL RBC (4.30-5.90) m/uL Hgb (13.0-17.5) gm/dL Hct (39.0-53.0) % MCV (80.0-100.0) fL MCH (25.0-35.0) pg MCHC (31.0-37.0) g/dL RDW (11.5-15.5) % Plt Count (150-450) k/uL Neutrophils % % Lymphocytes % % Monocytes % % Eosinophils % % Basophils % % Neutrophils # (1.3-7.7) k/uL Lymphocytes # (1.0-4.8) k/uL Monocytes # (0-1.0) k/uL Eosinophils # (0-0.7) k/uL Basophils # (0-0.2) k/uL Sodium 129 L (137-145) mmol/L Potassium 4.2 (3.5-5.1) mmol/L Chloride 97 L (98-107) mmol/L Carbon Dioxide 26 (22-30) mmol/L Anion Gap 6 mmol/L BUN 10 (9-20) mg/dL Creatinine 0.55 L (0.66-1.25) mg/dL Est GFR (CKD-EPI)AfAm >90 (>60 ml/min/1.73 sqM) Est GFR (CKD-EPI)NonAf >90 (>60 ml/min/1.73 sqM) Glucose 106 H (74-99) mg/dL POC Glucose (mg/dL) (75-99) mg/dL POC Glu [employer] Operator ID Calcium 9.0 (8.4-10.2) mg/dL Total Bilirubin 0.7 (0.2-1.3) mg/dL AST 37 (17-59) U/L ALT 13 (4-49) U/L Alkaline Phosphatase 64 (38-126) U/L Total Creatine Kinase (55-170) U/L CK-MB (CK-2) (0.0-2.4) ng/mL CK-MB (CK-2) Rel Index Troponin I (0.000-0.034) ng/mL Total Protein 5.7 L (6.3-8.2) g/dL Albumin 3.2 L (3.5-5.0) g/dL Critical Care Time Critical Care Time: Yes Total Critical Care Time: 35 Disposition Clinical Impression: CVA (cerebral vascular accident), Seizure Disposition: OTHER INSTITUTION NOT DEFINED Condition: Stable Is patient prescribed a controlled substance at d/c from ED?: No Referrals: Louis Lawson MD [Primary Care Provider] - 1-2 days Time of Disposition: 19:55 - Out of Hospital Transfer - Req. Specs Out of Hospital Transfer - Requested Specifics: Other Non-Acute (Transfer to [facility])
[2020-05-26 18:55] LABS: Glucose,Whole Blood 111 mg/dL (75-99)
--- NOTE | 2020-05-26 19:03 | CT ---
EXAMINATION TYPE: CT brain wo con DATE OF EXAM: 05/26/2020 COMPARISON: 05/19/2020 HISTORY: cva CT DLP: 1028 mGycm Automated exposure control for dose reduction was used. There is cerebral atrophy. There is hypodensity in the periventricular white matter. There is no mass effect nor midline shift. There is no sign of intracranial hemorrhage. The calvarium is intact. Skul l base is intact. IMPRESSION: Cerebral atrophy and chronic small vessel ischemia. No acute intracranial abnormality.
[2020-05-26 19:24] LABS: Basophils % (A) 1 %; Eosinophils # (A) 0.2 k/uL (0-0.7); Eosinophils % (A) 5 %; HCT 31.5 % (39.0-53.0); HGB 10.5 gm/dL (13.0-17.5); Lymphocytes % (A) 25 %; MCH 29.6 pg (25.0-35.0); MCHC 33.2 g/dL (31.0-37.0); MCV 89.2 fL (80.0-100.0); Mean Platelet Volume 6.8; Monocytes # (A) 0.3 k/uL (0-1.0); Monocytes % (A) 9 %; Neutrophils # (A) 2.2 k/uL (1.3-7.7); Neutrophils % (A) 57 %; Platelet Count 246 k/uL (150-450); RBC 3.53 m/uL (4.30-5.90); WBC 3.9 k/uL (3.8-10.6)
[2020-05-26 19:33] LABS: ALT 13 U/L (4-49); AST 37 U/L (17-59); African American GFR (CKD) >90 (>60 ml/min/1.73 sqM); Albumin 3.2 g/dL (3.5-5.0); Alkaline Phosphatase 64 U/L (38-126); Anion Gap 6 mmol/L; Blood Urea Nitrogen 10 mg/dL (9-20); Carbon Dioxide 26 mmol/L (22-30); Chloride 97 mmol/L (98-107); Glucose 106 mg/dL (74-99); Non-African American GFR(CKD) >90 (>60 ml/min/1.73 sqM); Sodium 129 mmol/L (137-145); Total Bilirubin 0.7 mg/dL (0.2-1.3); Total Protein 5.7 g/dL (6.3-8.2)
[2020-05-26 19:37] LABS: Potassium 4.2 mmol/L (3.5-5.1)
--- NOTE | 2020-05-26 19:41 | CT ---
EXAMINATION TYPE: CT angio head neck DATE OF EXAM: 05/26/2020 COMPARISON: 06/20/2019 HISTORY: cva CT DLP: 514.7 mGycm Automated exposure control for dose reduction was used. CONTRAST: Performed with IV Contrast, patient injected with 65cc mL of Isovue 370. There are 3-D post processed images. There is normal branching pattern of the great vessels on the aortic arch. There is bilateral arteria l flow in the subclavian arteries. There is arterial flow in the common internal and external carotid arteries bilaterally. There is significant plaque formation at the carotid artery bifurcations. Ther e is estimated 75% stenosis of the proximal right internal carotid artery. There is approximate 25% s tenosis at the origin of the left internal carotid artery. There is bilateral arterial flow in the ve rtebral arteries. There is no evidence of carotid artery aneurysm or dissection. There is arterial flow in the anterior middle and posterior cerebral arteries. There is no mass effec t. There is no evidence of intracranial aneurysm or neovascularity. There is normal contrast opacific ation of the venous sinuses. I see no evidence of intracranial arterial stenosis. IMPRESSION: Significant plaque formation at the carotid artery bifurcations and more than 75% stenosis proximal r ight internal carotid artery and 25% stenosis origin left internal carotid artery. No significant elio nge compared to old exam. No significant intracranial angiographic abnormality.
[2020-05-26 19:47] LABS: INR 1.4 (<1.2); Partial Thromboplastin Time 34.2 sec (22.0-30.0); Prothrombin Time 13.5 sec (9.0-12.0)
[2020-05-26 20:00] LABS: Creatine Kinase MB 0.8 ng/mL (0.0-2.4); Troponin I 0.016 ng/mL (0.000-0.034)
[2020-05-26] MEDS ORDERED: levETIRAcetam IV 1,000 MG in SALINE 1 100ML.BAG IVPB STA (20:03)
[2020-05-26] MEDS ORDERED: ONDANSETRON 4 MG/2 ML VIAL IVP STA (23:36)
[2020-05-26] MEDS ORDERED: SODIUM CHLORIDE 0.9% 500 ML 500 ML IV ONE (23:39)
[2020-05-27 00:19] VITALS: BP 158/108; PULSE 102; RESP 21; TEMP 100.2
== END 2020-05-26 23:40 | disposition other institution (70) ==
LOC: EC 18:33
DX: I63.9 Cerebral infarction, unspecified (principal); R29.715 NIHSS score 15; I65.23 Occlusion and stenosis of bilateral carotid arteries; G40.909 Epilepsy, unspecified, not intractable, without status epilepticus; G83.84 Todd's paralysis (postepileptic); I48.91 Unspecified atrial fibrillation; R41.82 Altered mental status, unspecified; R53.1 Weakness; I25.119 Atherosclerotic heart disease of native coronary artery with unspecified angina pectoris; K21.9 Gastro-esophageal reflux disease without esophagitis; E78.5 Hyperlipidemia, unspecified; I10 Essential (primary) hypertension; G47.30 Sleep apnea, unspecified; G20 Parkinson's disease; H40.9 Unspecified glaucoma; D64.9 Anemia, unspecified; M19.90 Unspecified osteoarthritis, unspecified site; I69.392 Facial weakness following cerebral infarction; G62.9 Polyneuropathy, unspecified; Z79.899 Other long term (current) drug therapy; Z79.01 Long term (current) use of anticoagulants; Z88.8 Allergy status to other drugs, medicaments and biological substances; Z88.5 Allergy status to narcotic agent; Z96.653 Presence of artificial knee joint, bilateral; Z95.5 Presence of coronary angioplasty implant and graft; Z85.46 Personal history of malignant neoplasm of prostate; Z92.21 Personal history of antineoplastic chemotherapy; Z92.3 Personal history of irradiation; Z99.89 Dependence on other enabling machines and devices
CPT/HCPCS: 96374; 96375; 99291; 36415; 93005; 80053; 82550; 82553; 84484; 85025; 85610; 85730; 70496; 70450; 70498; J2405; J1953; Q9967

== ENCOUNTER 2020-11-26 21:05 | Inpatient (IN) | payer MEDICARE ==
--- NOTE | 2020-11-26 21:16 | ED ---
General Adult HPI - General Stated complaint: Possible Stroke Time Seen by Provider: 11/26/20 21:07 Source: patient, EMS, RN notes reviewed, old records reviewed Mode of arrival: EMS Limitations: altered mental status, physical limitation - History of Present Illness Initial comments: Patient is an 85-year-old male presenting to the emergency department with concern for stroke. Last known well was reported as 4 PM. Patient reportedly has been sleeping most the day. Patient found altered and only answering yes. Patient unable to provide any further history. Unclear patient has history of similar symptoms previously. Patient is on Keppra for reported seizure history. Patient is also on Xarelto. - Related Data Home Medications Medication Instructions Recorded Confirmed Montelukast [Singulair] 10 mg PO HS@209909/19/15 05/19/20 Cholecalciferol [Vitamin D3 (25 5,000 unit PO DAILY@169903/05/17 05/19/20 Mcg = 1000 Iu)] Ferrous Sulfate [Iron (65 MG 325 mg PO DAILY@169907/14/18 05/19/20 Elemental)] Brimonidine Tartrate/Timolol 1 drop LEFT EYE BID@0800,169908/23/18 05/19/20 [Combigan 0.2%-0.5% Eye Drops] carvediloL [Carvedilol] 25 mg PO BID@799,209908/23/18 05/19/20 Cyanocobalamin (Vitamin B-12) 2,500 mcg PO DAILY@79904/16/20 05/19/20 [Vitamin B-12] Ezetimibe [Zetia] 10 mg PO DAILY@79904/16/20 05/19/20 Latanoprost/Pf [Latanoprost 0.005% 1 drop BOTH EYES HS@209904/16/20 05/19/20 Eye Drop] Rosuvastatin Calcium 20 mg PO HS@209904/16/20 05/19/20 Losartan Potassium 50 mg PO DAILY@79904/28/20 05/19/20 Na Phos,M-B/Na Phos,Di-Ba [[place]leet 133 ml RECTAL DAILY PRN 04/28/20 05/19/20 Adult] Pantoprazole [Protonix] 40 mg PO DAILY@59904/28/20 05/19/20 Pramipexole [Mirapex] 1 mg PO BID@0800,1700 04/28/20 05/19/20 Sennosides-Docusate Sodium 1 tab PO BID@0800,1700 04/28/20 05/19/20 [Senokot-S] Tamsulosin [Flomax] 0.4 mg PO BID@0800,2100 04/28/20 05/19/20 bisacodyL [Dulcolax] 10 mg RECTAL Q24H PRN 04/28/20 05/19/20 methocarbamoL [Robaxin] 750 mg PO TID PRN 04/28/20 05/19/20 Brivaracetam [Briviact] 20 mg PO BID@0800,1700 05/19/20 05/19/20 Butalbit/Acetamin/Caff/Codeine 1 - 2 cap PO Q6H PRN 05/19/20 05/19/20 [Fioricet-Cod 35-614-15-30 Cap] HYDROcodone/APAP 10-325MG [[place] 1 tab PO Q6H PRN 05/19/20 05/19/20 10-325] Lacosamide [Vimpat] 100 mg PO BID@0800,2100 05/19/20 05/19/20 Rivaroxaban [Xarelto] 20 mg PO DAILY@17005/19/20 05/19/20 Previous Rx's Medication Instructions Recorded Magnesium Hydroxide [Milk of 2,400 mg PO DAILY PRN ml 04/18/20 Magnesia Concentrate] Sodium Chloride Tab 1 gm PO DAILY tab 05/03/20 Allergies Allergy/AdvReac Type Severity Reaction Status Date / Time metoclopramide [From Reglan] AdvReac SHAKES Verified 05/26/20 18:41 oxycodone HCl AdvReac Nausea & Verified 05/26/20 18:41 [From OxyContin] Vomiting Review of Systems ROS Statement: Those systems with pertinent positive or pertinent negative responses have been documented in the HPI. ROS Other: All systems not noted in ROS Statement are negative. 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, multiple TIAs, parkinson's disease, neuralgia, neuropathy bilateral hands, legs and feet, thoracic spondylosis, prostrate cancer with surgery/chemo and radiation, UTIs, kidney stones, L eye glaucoma, PVD/bilateral lower extremity edema, caratid stenosis, aemia, bronchitis, lower GI bleed History of Any Multi-Drug Resistant Organisms: None Reported Past Surgical History: Adenoidectomy, Back Surgery, Heart Catheterization With Stent, Hernia Repair, Joint Replacement, Orthopedic Surgery, Prostate Surgery, Tonsillectomy Additional Past Surgical History / Comment(s): PCI with stent in 2012, prostate biopsies, laser vaporization of prostrate, bilateral inquinal hernia repairs, EGD/colonoscopy, supraorbital percutaneous nerve stimulator trial, epidural injections, low back surgery, R foot hammer toe surgery, bilateral total knee replacements, bilateral cataract removals/lens implants, hemorrhoidectomy, R side of head vein biopsy, left hip arthroplasty 2 weeks ago Past Anesthesia/Blood Transfusion Reactions: No Reported Reaction Additional Past Anesthesia/Blood Transfusion Reaction / Comment(s): Pt has received blood in past without reaction. Date of Last Stent Placement:: 2012 Past Psychological History: No Psychological Hx Reported Additional Psychological History / Comment(s): Pt resides with his spouse. He uses a walker to ambulate. Smoking Status: Never smoker Past Alcohol Use History: None Reported Past Drug Use History: None Reported - Past Family History Brother(s) Family Medical History: No Reported History Additional Family Medical History / Comment(s): Patient has 3 brothers with no major medical problems. Sister(s) Family Medical History: Hypertension Additional Family Medical History / Comment(s): Patient has 3 sisters that are all alive. 2 have high blood pressure. One has diabetes and stroke and is 81 years old. And all have history of tremors. Son(s) Family Medical History: No Reported History Additional Family Medical History / Comment(s): Patient has 3 sons and one daughter with no major medical problems. Father Family Medical History: Myocardial Infarction (SD) Additional Family Medical History / Comment(s): Father at age 73 with history of Parkinson's disease, bowel cancer, bone cancer. Mother Family Medical History: No Reported History, Myocardial Infarction (SD) Additional Family Medical History / Comment(s): Mother at age 85 with history of hypertension and dementia. General Exam Limitations: altered mental status, physical limitation General appearance: alert, other (Only answers yes. Does not follow commands.) Head exam: Present: atraumatic, normocephalic Eye exam: Present: normal appearance, PERRL ENT exam: Present: normal oropharynx Neck exam: Present: normal inspection. Absent: tenderness Respiratory exam: Present: normal lung sounds bilaterally Cardiovascular Exam: Present: regular rate, normal rhythm GI/Abdominal exam: Present: soft. Absent: tenderness Extremities exam: Present: normal inspection Neurological exam: Present: alert, altered, other (Very limited exam. Does not follow commands. Right side upper and lower extremities appears weaker than the left) Expanded Neurological exam: Present: protecting the airway Motor strength exam: RUE: 2/1, LUE: 3, RLE: 2/1, LLE: 3 Eye Response: (4) open spontaneously Motor Response: (4) withdraws to pain Verbal Response: (3) inappropriate words Psychiatric exam: Present: flat affect Skin exam: Present: normal color Course Vital Signs 11/26/20 11/26/20 11/26/20 21:11 21:29 21:45 Temperature 99.4 F Pulse Rate 76 76 76 Respiratory 18 20 20 Rate Blood Pressure 169/114 194/111 181/114 O2 Sat by Pulse 93 L 94 L 98 Oximetry - Reevaluation(s) Reevaluation #1: 11/26/20 21:23 Patient is not a TPA candidate secondary to onset of symptoms greater than 4.5 hours. Case was discussed with neurology Dr. scott who agrees and recommends medical management. EKG Findings - EKG Comments: EKG Findings:: Normal sinus rhythm with a rate of 77. MT 184. QRS 90. QT 422. QTC 477. Left axis. LVH criteria. No acute ST change. Medical Decision Making - Medical Decision Making Patient reevaluated. Further history taken from family who states last known well was actually yesterday. She states patient does have history of seizures however this is not how he normally acts following a seizure. There is concern for stroke. Case was discussed with Dr. Ramsay, covering for Dr. Lawson, who will admit. She does recommend aspirin and Lipitor. - Lab Data Lab Results 11/26/20 Range/Units 21:46 POC Glucose (mg/dL) 107 H (75-99) mg/dL POC Glu Benefits Officer ID - Radiology Data Radiology results: report reviewed (Computed tomography scan of the brain shows no acute process. Mild to moderate atrophy. Moderate to severe chronic small vessel ischemia redemonstrated. No change from previous.), image reviewed (X- ray shows chronic changes and cardiomegaly without acute process.) Disposition Clinical Impression: CVA (cerebral vascular accident) Disposition: ADMITTED IP TO THIS HOSP Is patient prescribed a controlled substance at d/c from ED?: No Referrals: Louis Lawson MD [Primary Care Provider] - 1-2 days Decision Time: 21:57
--- NOTE | 2020-11-26 21:33 | CT ---
EXAMINATION TYPE: CT brain wo con for TPA DATE OF EXAM: 11/26/2020 HISTORY: code stroke, acute onset neuro deficits CT DLP: 1176.8 mGycm. Automated Exposure Control for Dose Reduction was Utilized. TECHNIQUE: CT scan of the head is performed without contrast. COMPARISON: CT brain May 26, 2020 FINDINGS: There is no acute intracranial hemorrhage or midline shift identified. There is mild-to-m oderate diffuse ventricular and sulcal prominence consistent with diffuse age-related cerebral atroph y. There is moderate to severe low-attenuation in the periventricular white matter consistent with c hronic small vessel ischemic change. The globes are intact and the visualized sinuses are clear. IMPRESSION: No acute intracranial hemorrhage or midline shift. There is mild to moderate diffuse ag e-related cerebral atrophy and moderate to severe chronic small vessel ischemic change redemonstrated . No significant change from prior CT.
--- NOTE | 2020-11-26 21:46 | XR ---
EXAMINATION TYPE: XR chest 1V portable DATE OF EXAM: 11/26/2020 COMPARISON: Chest x-ray May 19, 2020. CTA chest April 16, 2020. HISTORY: Altered mental status and weakness. TECHNIQUE: Single frontal view of the chest is obtained. FINDINGS: There is chronic parenchymal change bilaterally without suspicious new focal air space opa city, pleural effusion, or pneumothorax seen. Persistent low lung volumes. Persistent cardiomegaly w ith atherosclerotic and ectatic thoracic aorta. The osseous structures remain demineralized. IMPRESSION: Chronic changes and cardiomegaly without acute pulmonary process.
[2020-11-26 21:48] LABS: Glucose,Whole Blood 107 mg/dL (75-99)
[2020-11-26 21:58] LABS: Basophils % (A) 1 %; Eosinophils # (A) 0.1 k/uL (0-0.7); Eosinophils % (A) 1 %; HGB 12.6 gm/dL (13.0-17.5); Lymphocytes % (A) 17 %; MCH 31.9 pg (25.0-35.0); MCHC 34.1 g/dL (31.0-37.0); MCV 93.3 fL (80.0-100.0); Mean Platelet Volume 7.1; Monocytes # (A) 0.4 k/uL (0-1.0); Monocytes % (A) 7 %; Neutrophils # (A) 4.7 k/uL (1.3-7.7); Neutrophils % (A) 74 %; Platelet Count 162 k/uL (150-450); RBC 3.96 m/uL (4.30-5.90); RDW 14.1 % (11.5-15.5); WBC 6.3 k/uL (3.8-10.6)
[2020-11-26] MEDS ORDERED: ASPIRIN 325 MG TAB PO STA (21:58)
--- NOTE | 2020-11-26 21:59 | CT ---
EXAMINATION TYPE: CT angio head neck DATE OF EXAM: 11/26/2020 HISTORY: Acute onset neuro deficits, stroke suspected COMPARISON: CTA head and neck May 26, 2020 and multiple additional CTA code stroke studies. CT DLP: 791.2 mGycm. Automated Exposure Control for Dose Reduction was Utilized. TECHNIQUE: CTA scan of the head and neck are performed with IV Contrast, patient injected with 65 mL of Isovue 370, axial images are obtained, coronal and sagittal reformatted images are reviewed. Thre e-D reconstructed images are created on an independent workstation and reviewed. FINDINGS: Carotid/Vascular Structures: Bovine type aortic arch redemonstrated. Normal origin right common carot id artery from the right brachiocephalic artery. Tortuous course redemonstrated, motion artifact degr adation makes evaluation proximal right common carotid artery suboptimal. Remainder right common [place] artery shows mild calcified plaquing anteriorly axial image 50. There is moderate to severe plaqu e right carotid bulb extending into proximal internal carotid artery. This causes stenosis near but u nder 50%. Mild calcified plaque distal segment. Patent external carotid artery without significant st enosis. Tortuous course to left common carotid artery. Moderate to severe mixed plaque extends into i nternal and external carotid arteries. No significant stenosis. Codominant vertebrobasilar system. Vertebral arteries patent to basilar junction. Patent right-sided posterior communicating artery. Hypoplastic left posterior communicating artery. No significant focal stenosis or aneurysmal change. Poor visualization of the anterior communicating artery. No significa nt focal stenosis or aneurysmal change in the anterior circulation. Other: Scleral calcification bilateral globes. Mild mucosal thickening posterior inferior left maxill kalp[place] sinus. Few prominent but subcentimeter lymph nodes throughout the visualized mediastinum redemons trated. Severe coronary artery calcification noted on current study. IMPRESSION: Fairly severe atherosclerotic changes bilateral carotid bulb extending into proximal inte rnal carotid arteries without hemodynamically significant stenosis greater than 50% seen on today's s tudy. No new focal stenosis or aneurysm at level of [place].
[2020-11-26 22:11] LABS: ALT <6 U/L (4-49); AST 24 U/L (17-59); African American GFR (CKD) >90 (>60 ml/min/1.73 sqM); Albumin 3.5 g/dL (3.5-5.0); Alkaline Phosphatase 85 U/L (38-126); Anion Gap 9 mmol/L; Blood Urea Nitrogen 19 mg/dL (9-20); Carbon Dioxide 26 mmol/L (22-30); Chloride 98 mmol/L (98-107); Glucose 110 mg/dL (74-99); Non-African American GFR(CKD) 81 (>60 ml/min/1.73 sqM); Potassium 4.1 mmol/L (3.5-5.1); Sodium 133 mmol/L (137-145); Total Bilirubin 0.6 mg/dL (0.2-1.3)
[2020-11-26 22:13] LABS: INR 1.3 (<1.2); Partial Thromboplastin Time 32.1 sec (22.0-30.0); Prothrombin Time 13.5 sec (9.0-12.0)
[2020-11-26] MEDS ORDERED: LOSARTAN 25 MG TAB PO STA (22:13)
[2020-11-26] MEDS: ATORVASTATIN 40 MG TAB PO SCH (22:43)
[2020-11-26] MEDS: SODIUM CHLORIDE 0.9% 1,000 ML IV SCH (22:43)
[2020-11-27 07:03] LABS: Cholesterol 206 mg/dL (<200); HDL Cholesterol 65 mg/dL (40-60); LDL Cholesterol,Calculated 122 mg/dL (0-99); Triglycerides 96 mg/dL (<150)
[2020-11-27] MEDS: SODIUM CHLORIDE 0.9% 1,000 ML IV SCH ×2 (08:51→21:06)
[2020-11-27] MEDS ORDERED: levETIRAcetam IV 500 MG in SODIUM CHLORIDE 0.9% 100 ML IVPB SCH (10:00)
--- NOTE | 2020-11-27 12:13 | P.HPIM ---
History of Present Illness H&P Date: 11/27/20 History of Present Illness This is an 85-year-old male patient of Dr. 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 He was readmitted from April 28 through May 06, 2020, at which time he was seen by multiple consultants including neurology for seizure activity and adjustments were made on Keppra and patient was started on Vimpat. He was also treated for acute catheter associated urinary tract infection, urinary retention, hematuria and was seen by Dr. Gaspar. Patient was seen by Dr. Reina for hyponatremia with SIADH. Patient was stabilized and discharged back to [facility]. Patient was seen at [facility] for seizure activity or an unresponsive episodes were side effect of the Keppra and the only wanted him on Vimpat but patient was somehow started also on Briviact at that time. He was again hospitalized at [facility] for unresponsive episode and was transferred to [facility] as was advised by neurologist, Dr. Pedroza. Patient had an unresponsive episode of 20 minutes and was only responding to pain and then return to baseline. Patient apparently is no longer at [facility] for subacute rehab. Patient apparently was last seen at 4 PM and had been sleeping all day and mental status was found to be altered and patient was unable to provide any information. Patient was brought into [facility] emergency center for evaluation. He was afebrile, heart rate 76, initial blood pressure 169/114, pulse ox 93%. EKG was in normal sinus rhythm with LVH. CAT scan of the brain showed no acute process. Mild to moderate atrophy. Moderate to severe chronic small vessel ischemic redemonstrated. No change from previous. Chest x-ray shows chronic changes and cardiomegaly without acute process. WBC 6.3, hemoglobin 12.6. INR 1.3. Sodium 133 otherwise electrolytes and renal function normal. Blood sugar was 110. Liver function tests normal. Troponin negative. Carotid virus PCR not detected. Triglycerides 96, cholesterol 206, LDL 122, HDL 65. Patient is minimally responsive and only open eyes to verbal stimuli. He is unable to follow any commands. Patient is currently nothing by mouth and Keppra will be transitioned to IV piggyback, consult with neurology, PT OT and speech therapies., Review of Systems Unable to obtain due to patient's mental status. Physical Examination Gen: This is an 85-year-old male. He is resting in bed and appears comfortable. HEENT: Head is atraumatic, normocephalic. Pupils equal, round. Sclerae is anicteric. Left facial droop. Left arm tremor. NECK: Supple. No JVD. No lymphadenopathy. No thyromegaly. LUNGS: Clear to auscultation. No wheezes or rhonchi. No intercostal retractions. HEART: Regular rate and rhythm. Systolic ejection murmur. ABDOMEN: Soft. Bowel sounds are present. No masses. No tenderness. EXTREMITIES: No pedal edema. No calf tenderness. NEUROLOGICAL: Patient is minimally responsive by opening his eyes to verbal stimuli. Unable to follow any commands. Assessment and Plan 1. Metabolic encephalopathy, rule out CVA. Consult with neurology. Patient is currently nothing by mouth, PT, OT, speech therapy. 2. Seizure disorder, follows with Dr. Byrd. Keppra will be transitioned to IV for now until patient is able to take oral medications. Neurology consult. 3. History of Bilateral pulmonary embolism originating from DVT right leg. Patient is on Xarelto. 4. Hypertension. Home medications are Coreg 12.5 mg twice daily, losartan 12.5 mg daily. 5. Hyperlipidemia. Home medications are Lipitor 40 mg daily, Zetia 10 mg daily. 6. History of CVA. 7. Coronary artery disease status post angioplasty and stent placement. Continue Lipitor. 8. Benign prostatic hypertrophy with history of urinary retention that required chronic Olivo catheter. Patient is on Flomax 0.4 mg twice daily. 9. Restless leg syndrome. On Mirapex 1 mg twice daily. 10. GI prophylaxis. Protonix. 11. DVT prophylaxis. Will resume Xarelto. CODE STATUS: Full code Patient to be admitted to the hospital for a minimum of 2 night stay. Discharge plan To be determined. Most likely subacute rehab at [facility]. PT, OT, speech therapy consults. Impression and plan of care have been directed as dictated by the signing physician. Suly Gallo nurse practitioner acting as scribe for signing physician. 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, multiple TIAs, parkinson's disease, neuralgia, neuropathy bilateral hands, legs and feet, thoracic spondylosis, prostrate cancer with surgery/chemo and radiation, UTIs, kidney stones, L eye glaucoma, PVD/bilateral lower extremity edema, caratid stenosis, aemia, bronchitis, lower GI bleed History of Any Multi-Drug Resistant Organisms: None Reported Past Surgical History: Adenoidectomy, Back Surgery, Heart Catheterization With Stent, Hernia Repair, Joint Replacement, Orthopedic Surgery, Prostate Surgery, Tonsillectomy Additional Past Surgical History / Comment(s): PCI with stent in 2012, prostate biopsies, laser vaporization of prostrate, bilateral inquinal hernia repairs, EGD/colonoscopy, supraorbital percutaneous nerve stimulator trial, epidural injections, low back surgery, R foot hammer toe surgery, bilateral total knee replacements, bilateral cataract removals/lens implants, hemorrhoidectomy, R side of head vein biopsy, left hip arthroplasty 2 weeks ago Past Anesthesia/Blood Transfusion Reactions: No Reported Reaction Additional Past Anesthesia/Blood Transfusion Reaction / Comment(s): Pt has received blood in past without reaction. Date of Last Stent Placement:: 2012 Past Psychological History: No Psychological Hx Reported Additional Psychological History / Comment(s): Pt resides with his spouse. He uses a walker to ambulate. Smoking Status: Never smoker Past Alcohol Use History: None Reported Past Drug Use History: None Reported - Past Family History Brother(s) Family Medical History: No Reported History Additional Family Medical History / Comment(s): Patient has 3 brothers with no major medical problems. Sister(s) Family Medical History: Hypertension Additional Family Medical History / Comment(s): Patient has 3 sisters that are all alive. 2 have high blood pressure. One has diabetes and stroke and is 81 years old. And all have history of tremors. Son(s) Family Medical History: No Reported History Additional Family Medical History / Comment(s): Patient has 3 sons and one daughter with no major medical problems. Father Family Medical History: Myocardial Infarction ([place]) Additional Family Medical History / Comment(s): Father at age 73 with history of Parkinson's disease, bowel cancer, bone cancer. Mother Family Medical History: No Reported History, Myocardial Infarction ([place]) Additional Family Medical History / Comment(s): Mother at age 85 with history of hypertension and dementia. Medications and Allergies Home Medications Medication Instructions Recorded Confirmed Type Montelukast [Singulair] 10 mg PO HS@209909/19/15 11/26/20 History Ferrous Sulfate [Iron (65 MG 325 mg PO DAILY 07/14/18 11/26/20 History Elemental)] Ezetimibe [Zetia] 10 mg PO DAILY 04/16/20 11/26/20 History Latanoprost/Pf [Latanoprost 0.005% 1 drop BOTH EYES HS@209904/16/20 11/26/20 History Eye Drop] Rosuvastatin Calcium 20 mg PO HS@199904/16/20 11/26/20 History Tamsulosin [Flomax] 0.4 mg PO DAILY 04/28/20 11/26/20 History Butalbit/Acetamin/Caff/Codeine 1 - 2 cap PO Q6H PRN 05/19/20 11/26/20 History [Fioricet-Cod 30-049-52-30 Cap] Rivaroxaban [Xarelto] 20 mg PO DAILY@1700 05/19/20 11/26/20 History Brimonidine Tartrate [Alphagan P 1 drops LEFT EYE BID 11/26/20 11/26/20 History 0.2% Ophth Soln] Carbidopa-Levodopa 25-100 mg 1 tab PO TID 11/26/20 11/26/20 History [Sinemet 25-100] Carvedilol [Coreg] 12.5 mg PO BID 11/26/20 11/26/20 History Cholecalciferol [Vitamin D3 (25 125 mcg PO DAILY 11/26/20 11/26/20 History Mcg = 1000 Iu)] Escitalopram [Lexapro] 10 mg PO DAILY 11/26/20 11/26/20 History Fludrocortisone [Florinef] 0.1 mg PO DAILY 11/26/20 11/26/20 History Losartan [Cozaar] 12.5 mg PO DAILY 11/26/20 11/26/20 History Pramipexole [Mirapex] 1 mg PO DAILY@1700,2000 11/26/20 11/26/20 History Timolol [Betimol 0.5% Ophth Soln] 1 drop LEFT EYE BID 11/26/20 11/26/20 History levETIRAcetam [Keppra] 1,000 mg PO HS 11/26/20 11/26/20 History levETIRAcetam [Keppra] 500 mg PO DAILY 11/26/20 11/26/20 History Allergies Allergy/AdvReac Type Severity Reaction Status Date / Time metoclopramide [From Reglan] AdvReac SHAKES Verified 11/26/20 22:21 oxycodone HCl AdvReac Nausea & Verified 11/26/20 22:21 [From OxyContin] Vomiting Physical Exam Vitals: Vital Signs Temp Pulse Pulse Resp BP BP Pulse Ox 11/27/20 08:13 99.0 F 74 18 154/94 95 11/27/20 03:27 98.2 F 77 16 166/90 96 11/27/20 00:59 77 18 146/94 98 11/26/20 23:00 99.0 F 80 20 163/100 99 11/26/20 22:00 99.0 F 75 17 174/109 97 11/26/20 21:45 76 20 181/114 98 11/26/20 21:29 76 20 194/111 94 L 11/26/20 21:11 99.4 F 76 18 169/114 93 L Intake and Output 11/26/20 11/27/20 11/27/20 22:59 06:59 14:59 Other: Voiding Method Diaper # Voids 1 Weight 84.958 kg Results CBC & Chem 7: 11/26/20 21:43 11/26/20 21:43 Labs: Abnormal Lab Results - Last 24 Hours (Table) 11/26/20 11/26/20 11/26/20 Range/Units 21:43 21:43 21:43 RBC 3.96 L (4.30-5.90) m/uL Hgb 12.6 L (13.0-17.5) gm/dL Hct 37.0 L (39.0-53.0) % PT 13.5 H (9.0-12.0) sec INR 1.3 H (<1.2) APTT 32.1 H (22.0-30.0) sec Sodium 133 L (137-145) mmol/L Glucose 110 H (74-99) mg/dL POC Glucose (mg/dL) (75-99) mg/dL Total Protein 6.0 L (6.3-8.2) g/dL Cholesterol (<200) mg/dL LDL Cholesterol, Calc (0-99) mg/dL HDL Cholesterol (40-60) mg/dL 11/26/20 11/27/20 Range/Units 21:46 06:19 RBC (4.30-5.90) m/uL Hgb (13.0-17.5) gm/dL Hct (39.0-53.0) % PT (9.0-12.0) sec INR (<1.2) APTT (22.0-30.0) sec Sodium (137-145) mmol/L Glucose (74-99) mg/dL POC Glucose (mg/dL) 107 H (75-99) mg/dL Total Protein (6.3-8.2) g/dL Cholesterol 206 H (<200) mg/dL LDL Cholesterol, Calc 122 H (0-99) mg/dL HDL Cholesterol 65 H (40-60) mg/dL
--- NOTE | 2020-11-27 14:19 | P.CNNES ---
History of Present Illness Consult date: 11/27/20 Requesting physician: Vinicio Torres Reason for Consult: CVA History of Present Illness: Patient is a 85-year-old male came to the hospital yesterday at 9:05 PM by ambulance for altered mental status and physical limitation, concern for stroke. According to ED report, last known well was about 4 PM. Patient reportedly has been sleeping most of the day. Patient was found to have altered mental status and only answering "yes". Patient unable to provide any further history in the ER. Patient is on Keppra for history of seizures. Vital signs on arrival blood pressure 169/114, pulse rate 76 of vision and 9.4. Blood pressure went up to 194/111. CT head showed no acute intracranial hemorrhage or midline shift. There is mild to moderate diffuse age-related cerebral atrophy and moderate to severe chronic small vessel ischemic change redemonstrated. No significant change from prior CT. Chest x-ray showed chron ic changes and cardiomegaly without acute pulmonary process. EKG shows normal sinus rhythm with minimal voltage criteria for LVH. Borderline ECG. CTA of head and neck showed fairly severe atherosclerotic changes bilateral carotid bulb extending into proximal ICAs without hemodynamically significant stenosis greater than 50% seen on today's exam. No new focal stenosis or aneurysm at the level of [place]. Patient takes Crestor 20 mg, Zetia 10 mg, Xarelto 20 mg, Sinemet CR 25/100 3 times a day, Mirapex 1 mg daily, Keppra 1000 mg at night and 500 mg in the mo rning. Carvedilol, losartan, Florinef 0.1 mg and Lexapro 10 mg. I spoke to patient's , who gave me updated list of his medications. Apparently patient is on Keppra 500 mg twice a day. He used to be on Keppra 250 mg tablet, 1 in the morning 2 at night, but was recently changed to 500 mg twice a day. Patient is also on ethosuximide 250 mg twice a day that was started on 09/27/2020. Patient is also on baclofen 10 mg 3 times a day. Patient's informed me that the day prior to arrival, he was sitting in his wheelchair, stating that he was feeling "like a daze". Yesterday he woke up at around 8 AM and tried to tell something but she could not figure it out. Most of the day he was sleeping. Around 4 PM, he could not say anything more than "ya, ya". As his mentation stayed like this, they brought him to the hospital. Patient's mentions that patient had an EEG performed at his neurologist Dr. Byrd office a week ago the results of which is unavailable. Patient's states that he does not get grand mal seizure, it is more of unresponsiveness, and his blood pressure drops. 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 He has been on Xarelto since then. He does not take any antiplatelet medication. Our records as below stated that he was on Keppra 1000 g twice a day, although patient's completely declines. I spoke to the pharmacist at [facility], and he has always been on 250 mg tablet, 1 in the morning 2 at night, total 750 mg daily dose. Just recently the dose was increased to 500 mg twice a day. Patient's also mentions that he has been diagnosed with encephalitis in the past from lumbar puncture. Apparently this was during admission on 06/20/2019, when patient was seen by Dr. Green. Patient has almost similar presentation, had lumbar puncture performed, with WBC 1, RBC 50, 48 glucose and total protein 62/60. HSV-1 and HSV 2 PCR were negative. He has been to many hospitals including [facility] a few times. On review of records and our [place] system, apparently patient has presented with similar symptomatology on 05/20/2020 when he had presented with an episode of unresponsiveness [facility]. The underresponsive episode lasted about 20 minutes. He was only responding to pain. Thereafter he returned to baseline. Patient also has presented previous to that on 04/29/2020 with numerous episodes of unresponsiveness as well as episodes of tonic-clonic activity. His initial EEG was normal. He has some other EEGs which were normal. As per Dr. Dat Pedroza report, Another EEG performed showed seizure and is seemed to come from the right central region. Patient's Keppra was increased to 1 g twice a day and started on Vimpat 100 mg twice a day. (I called the pharmacy patient has never been on Vimpat or that dose of Keppra). Also per Dr. Pedroza report, Patient also had a long-term EEG performed at [facility] and no seizure activity was captured, but the patient was started on Keppra at that time. 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, multiple TIAs, parkinson's disease, neuralgia, neuropathy bilateral hands, legs and feet, thoracic spondylosis, prostrate cancer with surgery/chemo and radiation, UTIs, kidney stones, L eye glaucoma, PVD/bilateral lower extremity edema, caratid stenosis, aemia, bronchitis, lower GI bleed History of Any Multi-Drug Resistant Organisms: None Reported Past Surgical History: Adenoidectomy, Back Surgery, Heart Catheterization With Stent, Hernia Repair, Joint Replacement, Orthopedic Surgery, Prostate Surgery, Tonsillectomy Additional Past Surgical History / Comment(s): PCI with stent in 2012, prostate biopsies, laser vaporization of prostrate, bilateral inquinal hernia repairs, EGD/colonoscopy, supraorbital percutaneous nerve stimulator trial, epidural injections, low back surgery, R foot hammer toe surgery, bilateral total knee replacements, bilateral cataract removals/lens implants, hemorrhoidectomy, R side of head vein biopsy, left hip arthroplasty 2 weeks ago Past Anesthesia/Blood Transfusion Reactions: No Reported Reaction Additional Past Anesthesia/Blood Transfusion Reaction / Comment(s): Pt has received blood in past without reaction. Date of Last Stent Placement:: 2012 Past Psychological History: No Psychological Hx Reported Additional Psychological History / Comment(s): Pt resides with his spouse. He uses a walker to ambulate. Smoking Status: Never smoker Past Alcohol Use History: None Reported Past Drug Use History: None Reported - Past Family History Brother(s) Family Medical History: No Reported History Additional Family Medical History / Comment(s): Patient has 3 brothers with no major medical problems. Sister(s) Family Medical History: Hypertension Additional Family Medical History / Comment(s): Patient has 3 sisters that are all alive. 2 have high blood pressure. One has diabetes and stroke and is 81 years old. And all have history of tremors. Son(s) Family Medical History: No Reported History Additional Family Medical History / Comment(s): Patient has 3 sons and one daughter with no major medical problems. Father Family Medical History: Myocardial Infarction (LA) Additional Family Medical History / Comment(s): Father at age 73 with history of Parkinson's disease, bowel cancer, bone cancer. Mother Family Medical History: No Reported History, Myocardial Infarction ([place]) Additional Family Medical History / Comment(s): Mother at age 85 with history of hypertension and dementia. Medications and Allergies Home Medications Medication Instructions Recorded Confirmed Type Montelukast [Singulair] 10 mg PO HS@209909/19/15 11/26/20 History Ferrous Sulfate [Iron (65 MG 325 mg PO DAILY 07/14/18 11/26/20 History Elemental)] Ezetimibe [Zetia] 10 mg PO DAILY 04/16/20 11/26/20 History Latanoprost/Pf [Latanoprost 0.005% 1 drop BOTH EYES HS@209904/16/20 11/26/20 History Eye Drop] Rosuvastatin Calcium 20 mg PO HS@199904/16/20 11/26/20 History Tamsulosin [Flomax] 0.4 mg PO DAILY 04/28/20 11/26/20 History Butalbit/Acetamin/Caff/Codeine 1 - 2 cap PO Q6H PRN 05/19/20 11/26/20 History [Fioricet-Cod 81-283-88-30 Cap] Rivaroxaban [Xarelto] 20 mg PO DAILY@1700 05/19/20 11/26/20 History Brimonidine Tartrate [Alphagan P 1 drops LEFT EYE BID 11/26/20 11/26/20 History 0.2% Ophth Soln] Carbidopa-Levodopa 25-100 mg 1 tab PO TID 11/26/20 11/26/20 History [Sinemet 25-100] Carvedilol [Coreg] 12.5 mg PO BID 11/26/20 11/26/20 History Cholecalciferol [Vitamin D3 (25 125 mcg PO DAILY 11/26/20 11/26/20 History Mcg = 1000 Iu)] Escitalopram [Lexapro] 10 mg PO DAILY 11/26/20 11/26/20 History Fludrocortisone [Florinef] 0.1 mg PO DAILY 11/26/20 11/26/20 History Losartan [Cozaar] 12.5 mg PO DAILY 11/26/20 11/26/20 History Pramipexole [Mirapex] 1 mg PO DAILY@1700,2000 11/26/20 11/26/20 History Timolol [Betimol 0.5% Ophth Soln] 1 drop LEFT EYE BID 11/26/20 11/26/20 History levETIRAcetam [Keppra] 1,000 mg PO HS 11/26/20 11/26/20 History levETIRAcetam [Keppra] 500 mg PO DAILY 11/26/20 11/26/20 History Allergies Allergy/AdvReac Type Severity Reaction Status Date / Time metoclopramide [From Reglan] AdvReac SHAKES Verified 11/26/20 22:21 oxycodone HCl AdvReac Nausea & Verified 11/26/20 22:21 [From OxyContin] Vomiting Physical Examination - Vital Signs Vital Signs: Vital Signs Temp Pulse Pulse Resp BP BP Pulse Ox 11/27/20 08:13 99.0 F 74 18 154/94 95 11/27/20 03:27 98.2 F 77 16 166/90 96 11/27/20 00:59 77 18 146/94 98 11/26/20 23:00 99.0 F 80 20 163/100 99 11/26/20 22:00 99.0 F 75 17 174/109 97 11/26/20 21:45 76 20 181/114 98 11/26/20 21:29 76 20 194/111 94 L 11/26/20 21:11 99.4 F 76 18 169/114 93 L Intake and Output 11/26/20 11/27/20 11/27/20 22:59 06:59 14:59 Other: Voiding Method Diaper # Voids 1 Weight 84.958 kg On examination patient is an elderly male, in no acute distress. He is very somnolent, lethargic, opens his eyes to calling his name loudly, but does not follow much commands. He only says "Ya,Ya" for everything asked. He could not tell his own name or his 's name. Patient appears is aphasic with perseveration. On cranial examination pupils are round and reactive to light, visual leon could not be tested although he it appears that he has neglect on the right side. He does slightly blink to visual threat better on the left, but not on the right. He has very minimal right facial asymmetry, which according to his is old finding. Patient did not protrude his tongue. Patient did n ot lift his arms up. However on manually lifting arms up, the right arm drops very fast. As he holds the left arm up. Patient's states that he is usually able to lift his both legs up while laying down, but today he is not doing anything. Reflexes are diminished and patient has Babinski on the right whereas downgoing plantar on the left. Cerebellar functions, gait cannot be tested. Patient's also mentions that he has been using wheelchair for a couple years. However after his right hip surgery in March 2020 he has been just wheelchair-bound. On general exam. There is no obvious bruit, service audible, peripheral pulses present. No edema. Abdomen is soft and nontender. Results - Laboratory Findings CBC and BMP: 11/26/20 21:43 11/26/20 21:43 Abnormal Lab Findings: Abnormal Labs 11/26/20 11/26/20 11/26/20 21:43 21:43 21:43 RBC 3.96 L Hgb 12.6 L Hct 37.0 L PT 13.5 H INR 1.3 H APTT 32.1 H Sodium 133 L Glucose 110 H POC Glucose (mg/dL) Total Protein 6.0 L Cholesterol LDL Cholesterol, Calc HDL Cholesterol 11/26/20 11/27/20 21:46 06:19 RBC Hgb Hct PT INR APTT Sodium Glucose POC Glucose (mg/dL) 107 H Total Protein Cholesterol 206 H LDL Cholesterol, Calc 122 H HDL Cholesterol 65 H Assessment and Plan Assessment: * Altered mental status, with focal findings on examination including expressive aphasia, perseveration, right visual field neglect and right hemiparesis. Rule out acute to subacute CVA. CT head was normal. CTA of the neck showed atherosclerotic disease but no significant stenosis. Patient had presented with similar symptomatology in the past in June 2019 with negative workup. Focal seizure with postictal Zach's paralysis also a possibility but a diagnosis of exclusion. * Seizure disorder, currently on Keppra 500 mg twice a day and ethosuximide 250 mg twice a day. Patient follows up with Dr. Byrd. * Hypertension * History of DVT and PE, on long-term Xarelto. Patient has been compliant with medications. Plan: * Stat EEG to rule out status epilepticus/postictal slowing * Stat MRI of the brain rule out CVA. * Patient has been started on aspirin 325 mg by mouth. If cannot take by mouth, would recommend aspirin 300 mg rectally. * DVT prophylaxis as per IM. May resume Xarelto for DVT prophylaxis, when able to take by mouth meds. * Increase Keppra to 1000 mg IV twice a day. * Discussed with patient's in detail. I also spoke to patient's pharmacist at [facility] about his current and previous medication list. Time with Patient: Greater than 30
[2020-11-27] MEDS: ASPIRIN 300 MG SUPP RECTAL SCH (16:51)
--- NOTE | 2020-11-27 18:36 | MR ---
MR brain without contrast HISTORY: Altered mental status, cerebrovascular accident Multiplanar multisequence imaging through the brain. Correlation to prior MR brain 06/20/2019 There is no restricted diffusion. Diffuse confluent hyperintensity on inversion recovery, T2-weighted sequences within the deep white matter, gabino is again noted. Scattered areas of very callosal enceph alomalacia again noted on the right. There is no hemorrhage or hydrocephalus. Corpus callosum, pituit kalpesh, cervical medullary junction, cerebellopontine angles are unremarkable. Orbits show symmetric yue earance. There is mild inflammatory change within the maxillary sinuses and ethmoid air cells. Brain atrophy is again seen. IMPRESSION: Essentially stable brain MRI, chronic small vessel ischemic changes, age related atrophy
[2020-11-27] MEDS: ATORVASTATIN 40 MG TAB PO SCH (20:29)
[2020-11-27] MEDS: levETIRAcetam IV 1,000 MG in SALINE 1 100ML.BAG IVPB SCH (20:30)
--- NOTE | 2020-11-27 20:37 | EEG ---
ELECTROENCEPHALOGRAM REPORT DATE OF SERVICE: 11/27/2020 PREAMBLE: This is an 85-year-old male with seizure disorder, has acute altered mental status with aphasia. This study is performed to evaluate for any epileptiform activity. EEG FINDINGS: This is a 21-channel routine EEG recording in a patient utilizing 10/20 international system with referential and bipolar montages. The electroencephalogram consists of continuous focal slowing in rhythmic and arrhythmic moderate to high amplitude delta activity seen in the entire left hemispheric region. On activating the patient, the background was seen much better involving the right hemispheric region with presence of 7-8 hertz activity which does not seem to be reactive to passive eye opening and closing. The background does not seem to be reactive to photic stimulation. Some intermittent left parietal sharp waves were seen. No electrographic seizure was otherwise recorded. EKG channel showed no arrhythmia. IMPRESSION: This is an abnormal EEG due to the presence of continuous focal rhythmic and arrhythmic delta slowing involving the left hemispheric region, suggestive of underlying cerebral dysfunction that may be related to underlying structural abnormality or may be from postictal effect. Some sharp-appearing waves were seen in the left parietal region, and rhythmic nature of delta slowing in this region is suggestive of underlying cortical irritability and tendency for seizures. No obvious electrographic seizure was recorded. MMODL / IJN: [id number] / [facility]
[2020-11-27] MEDS ORDERED: levETIRAcetam IV 1,000 MG in SALINE 1 100ML.BAG IVPB SCH (21:00)
[2020-11-27] MEDS ORDERED: ASPIRIN 325 MG TAB PO SCH (21:59)
[2020-11-27] MEDS: LACOSAMIDE IV 100 MG in SODIUM CHLORIDE 0.9% 50 ML IVPB SCH (22:03)
[2020-11-28] MEDS: SODIUM CHLORIDE 0.9% 1,000 ML IV SCH ×2 (05:26→18:02)
[2020-11-28] MEDS: levETIRAcetam IV 1,000 MG in SALINE 1 100ML.BAG IVPB SCH (08:15)
[2020-11-28] MEDS: LACOSAMIDE IV 100 MG in SODIUM CHLORIDE 0.9% 50 ML IVPB SCH (08:51)
--- NOTE | 2020-11-28 13:36 | XR ---
Right wrist HISTORY: Right wrist pain Four views of the right wrist There is marked arthropathy, remodeling of the radiocarpal joint, there is widening of the scapholuna te distance, marginal spurring and joint space loss present at the intercarpal joints. Bone mineraliz ation overall is reduced. There is soft tissue swelling present. Soft tissue calcifications are prese nt some of which are vascular. Suspect there is some chondrocalcinosis present along the triangle fib rocartilage. IMPRESSION: Arthropathy, consider crystal deposition disease, osteoarthritis. Scapholunate dissociati on. Atherosclerotic peripheral vascular occlusive disease. Osteopenia.
--- NOTE | 2020-11-28 13:48 | P.PN ---
Subjective Progress Note Date: 11/28/20 Patient is much improved as compared to yesterday. Patient is more awake, slightly more alert, stating his eyes open. Able to answer questions as below. She does complain of headache which he rates 5/10. Please refer to examination below. Telemetry monitoring showing sinus rhythm with PVCs. Objective - Vital Signs Vital signs: Vital Signs Temp 97.9 F 11/28/20 08:00 Pulse 86 11/28/20 12:00 Resp 18 11/28/20 12:00 BP 156/86 11/28/20 12:00 Pulse Ox 93 L 11/28/20 12:00 Intake & Output 11/27/20 11/28/20 11/28/20 18:59 06:59 18:59 Intake Total 100 Balance 100 Weight 84.958 kg Intake: Intake, IV Titration 100 Amount levETIRAcetam IV 1,000 mg 100 In Saline 1 100ml.bag @ 400 mls/hr IVPB Q12HR [facility] Rx#:[id number] Other: Voiding Method Diaper Diaper Diaper # Voids 2 1 3 - Exam On examination patient is much more alert and awake but still somewhat slow mentation, encephalopathic. Patient states is 84 years of age. He knows his full name, speech is much more clear. No significant perseveration today. Patient's pupils are round and reacting, visual leon appears full. Face is symmetric. On muscle strength testing patient has mild right pronation, but no drift. The strength appears equal. Patient's ankles are normal. Hip flexion also patient able to cooperate better. No ataxia for [id number] although he was very slow. Patient has tremors at rest of his both hands. Reflexes are 1+ and plantars are downgoing. 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 Patient has presented with altered mental status, with focal findings on examination including expressive aphasia, perseveration, right visual field neglect and right hemiparesis. No evidence of acute stroke on MRI. EEG revealed significant left hemispheric focal slowing (rhythmic and arrhythmic) with some left parietal sharp waves. * Seizure disorder, currently on Keppra 500 mg twice a day and ethosuximide 250 mg twice a day. Patient follows up with Dr. Byrd. * Hypertension * History of DVT and PE, on long-term Xarelto. Patient has been compliant with medications. Plan: * EEG 11/27/2020 shows abnormal EEG due to presence of continuous focal rhythmic and arrhythmic delta slowing involving the left hemispheric region with some sharp waves in the left parietal region, suggestive of focal cortical neuronal dysfunction with underlying cortical irritability and tendency for seizures. * Patient was placed on Vimpat 100 mg IV twice a day with increase dose of Keppra 1000 mg twice a day. Patient's mentation has much improved today. Patient probably was post ictal yesterday, which seems to be improving now. * MRI of the brain revealed no acute ischemia. Some small vessel disease. Acute stroke ruled out. * Resume anticoagulation with Xarelto and aspirin 81 mg, when able to tolerate oral route. * DVT prophylaxis as per IM. May resume Xarelto for DVT prophylaxis, when able to take by mouth meds. * Continue Keppra 1000 mg IV twice a day, and Vimpat 100 mg twice a day. Would consider stopping ethosuximide, as patient does not have primary generalized epilepsy. * We will follow.
--- NOTE | 2020-11-28 13:51 | P.PN ---
Subjective Progress Note Date: 11/28/20 History of Present Illness This is an 85-year-old male patient of Dr. 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 He was readmitted from April 28 through May 06, 2020, at which time he was seen by multiple consultants including neurology for seizure activity and adjustments were made on Keppra and patient was started on Vimpat. He was also treated for acute catheter associated urinary tract infection, urinary retention, hematuria and was seen by Dr. Gaspar. Patient was seen by Dr. Reina for hyponatremia with SIADH. Patient was stabilized and discharged back to [facility]. Patient was seen at [facility] for seizure activity or an unresponsive episodes were side effect of the Keppra and the only wanted him on Vimpat but patient was somehow started also on Briviact at that time. He was again hospitalized at [facility] for unresponsive episode and was transferred to [facility] as was advised by neurologist, Dr. Pedroza. Patient had an unresponsive episode of 20 minutes and was only responding to pain and then return to baseline. Patient apparently is no longer at [place] for subacute rehab. Patient apparently was last seen at 4 PM and had been sleeping all day and mental status was found to be altered and patient was unable to provide any information. Patient was brought into [facility] emergency center for evaluation. He was afebrile, heart rate 76, initial blood pressure 169/114, pulse ox 93%. EKG was in normal sinus rhythm with LVH. CAT scan of the brain showed no acute process. Mild to moderate atrophy. Moderate to severe chronic small vessel ischemic redemonstrated. No change from previous. Chest x-ray shows chronic changes and cardiomegaly without acute process. WBC 6.3, hemoglobin 12.6. INR 1.3. Sodium 133 otherwise electrolytes and renal function normal. Blood sugar was 110. Liver function tests normal. Troponin negative. Carotid virus PCR not detected. Triglycerides 96, cholesterol 206, LDL 122, HDL 65. Patient is minimally responsive and only open eyes to verbal stimuli. He is unable to follow any commands. Patient is currently nothing by mouth and Keppra will be transitioned to IV piggyback, consult with neurology, PT OT and speech therapies., 11/28: MRI of the brain revealed stable, chronic small vessel ischemic changes, age-related atrophy. EEG is abnormal suggestive of underlying cerebral dysfunction and may be related to structural abnormality or may be post ictal effect, sharp waves in the left parietal region suggestive underlying cortical irritability and tendency for seizures. Patient has been afebrile, heart rate 82, blood pressure 153/89, pulse ox 94% on room air. Patient has been seen by neurology with recommendations for aspirin 300 mg rectally, increase Keppra to 1000 mg twice daily and started Vimpat IV 100 mg twice daily. Patient is in bed with his eyes open, more awake today but is unable to follow any commands. Later in the day, nurse called the patient had improvement of his mental status and speech come back to evaluate swallow. If patient is able to swallow, we will resume his home medications, if not we will have to start heparin drip to replace Xarelto. Review of Systems Unable to obtain due to patient's mental status. Physical Examination Gen: This is an 85-year-old male. He is resting in bed and appears comfortable. HEENT: Head is atraumatic, normocephalic. Pupils equal, round. Sclerae is anicteric. Weight NECK: Supple. No JVD. No lymphadenopathy. No thyromegaly. LUNGS: Clear to auscultation. No wheezes or rhonchi. No intercostal retractions. HEART: Regular rate and rhythm. Systolic ejection murmur. ABDOMEN: Soft. Bowel sounds are present. No masses. No tenderness. EXTREMITIES: No pedal edema. No calf tenderness. NEUROLOGICAL: Patient is awake and alert. Unable to follow any commands. Assessment and Plan 1. Metabolic encephalopathy, rule out CVA, rule out seizure. Consult with neurology. Patient is currently nothing by mouth, PT, OT, speech therapy. Continue aspirin 300 mg daily rectally. 2. Seizure disorder, follows with Dr. Byrd. Keppra increased to 1000 mg twice daily and from Pat 100 mg IV twice daily added by neurology. Neurology consult appreciated. 3. History of Bilateral pulmonary embolism originating from DVT right leg. Patient is on Xarelto. If patient passes swallow eval, Xarelto will be resumed or heparin drip will be started. 4. Hypertension. Home medications are Coreg 12.5 mg twice daily, losartan 12.5 mg daily. 5. Hyperlipidemia. Home medications are Lipitor 40 mg daily, Zetia 10 mg daily. 6. History of CVA. 7. Coronary artery disease status post angioplasty and stent placement. Continue Lipitor. 8. Benign prostatic hypertrophy with history of urinary retention that required chronic Olivo catheter. Patient is on Flomax 0.4 mg twice daily. 9. Restless leg syndrome. On Mirapex 1 mg twice daily. 10. GI prophylaxis. Protonix. 11. DVT prophylaxis. Will resume Xarelto. CODE STATUS: Full code Discharge plan To be determined. Most likely subacute rehab at [facility]. PT, OT, speech therapy consults. Impression and plan of care have been directed as dictated by the signing physician. Suly Gallo nurse practitioner acting as scribe for signing physician. Objective - Vital Signs Vital signs: Vital Signs Temp 99.9 F H 11/28/20 02:55 Pulse 76 11/28/20 02:55 Resp 18 11/28/20 02:55 BP 146/85 11/28/20 02:55 Pulse Ox 97 11/28/20 08:15 Intake & Output 11/27/20 11/28/20 11/28/20 18:59 06:59 18:59 Intake Total 100 Balance 100 Weight 84.958 kg Intake: Intake, IV Titration 100 Amount levETIRAcetam IV 1,000 mg 100 In Saline 1 100ml.bag @ 400 mls/hr IVPB Q12HR [facility] Rx#:[id number] Other: Voiding Method Diaper Diaper # Voids 2 1 - Labs CBC & Chem 7: 11/26/20 21:43 11/26/20 21:43
[2020-11-28] MEDS: LOSARTAN 25 MG TAB PO SCH (18:00)
[2020-11-28] MEDS: carvediloL 12.5 MG TAB PO SCH (18:01)
[2020-11-28] MEDS: PRAMIPEXOLE 1 MG TAB PO SCH ×2 (18:01→20:14)
[2020-11-28] MEDS: RIVAROXABAN 20 MG TAB PO SCH (18:01)
[2020-11-28] MEDS: ASPIRIN 300 MG SUPP RECTAL SCH (18:01)
[2020-11-28] MEDS: ATORVASTATIN 40 MG TAB PO SCH ×2 (19:20→20:14)
[2020-11-28] MEDS: CARBIDOPA-LEVODOPA 25-100 MG 1 EACH TAB PO SCH (20:15)
[2020-11-28] MEDS: MONTELUKAST 10 MG TAB PO SCH (20:15)
[2020-11-28] MEDS ORDERED: levETIRAcetam IV 1,500 MG in SALINE 1 100ML.BAG IVPB SCH (21:00)
[2020-11-28] MEDS: LACOSAMIDE IV 200 MG in SODIUM CHLORIDE 0.9% 50 ML IVPB SCH (21:32)
[2020-11-28] MEDS: TIMOLOL 0.5% OPHTH DROPS 5 ML BTL LEFT EYE SCH (21:35)
[2020-11-28] MEDS: LATANOPROST 0.005% OPHTH DROPS 2.5 ML BTL BOTH EYES SCH (21:35)
[2020-11-28] MEDS: BRIMONIDINE TARTRATE 0.2% DROPS 5 ML BTL LEFT EYE SCH (21:35)
[2020-11-28] MEDS: levETIRAcetam IV 1,500 MG in SALINE 1 100ML.BAG IVPB SCH (22:57)
[2020-11-29 02:35] LABS: Amorphous Sediment,Urine Rare /hpf; Appearance,Urine Cloudy (Clear); Bacteria,Urine Many /hpf; Bilirubin,Urine Negative (Negative); Blood,Urine Small (Negative); Color,Urine Yellow; Glucose,Urine (UA) Negative (Negative); Ketones,Urine Negative (Negative); Leukocyte Esterase,Urine Large (Negative); Mucus,Urine Occasional /hpf; Nitrite,Urine Negative (Negative); PH, Urine 5.5 (5.0-8.0); Protein,Urine 1+ (Negative); RBC,Urine 4 /hpf (0-5); Specific Gravity,Urine 1.013 (1.001-1.035); Squamous Epithelial Cell,Urine <1 /hpf (0-4); Urobilinogen,Urine <2.0 mg/dL (<2.0); WBC,Urine 167 /hpf (0-5)
[2020-11-29] MEDS: SODIUM CHLORIDE 0.9% 1,000 ML IV SCH ×3 (03:58→20:06)
[2020-11-29] MEDS: carvediloL 12.5 MG TAB PO SCH ×2 (06:55→17:00)
[2020-11-29 07:18] LABS: African American GFR (CKD) >90 (>60 ml/min/1.73 sqM); Anion Gap 8 mmol/L; Blood Urea Nitrogen 27 mg/dL (9-20); Calcium 8.6 mg/dL (8.4-10.2); Carbon Dioxide 22 mmol/L (22-30); Chloride 106 mmol/L (98-107); Glucose 106 mg/dL (74-99); Non-African American GFR(CKD) 84 (>60 ml/min/1.73 sqM); Potassium 3.5 mmol/L (3.5-5.1); Sodium 136 mmol/L (137-145)
[2020-11-29] MEDS: LOSARTAN 25 MG TAB PO SCH (08:40)
[2020-11-29] MEDS: FLUDROCORTISONE 0.1 MG TAB PO SCH (08:40)
[2020-11-29] MEDS: EZETIMIBE 10 MG TAB PO SCH (08:40)
[2020-11-29] MEDS: FERROUS SULFATE 325 MG TAB PO SCH (08:41)
[2020-11-29] MEDS: TAMSULOSIN 0.4 MG CAP.ER.24H PO SCH (08:41)
[2020-11-29] MEDS: CARBIDOPA-LEVODOPA 25-100 MG 1 EACH TAB PO SCH ×3 (08:41→20:00)
[2020-11-29] MEDS: CHOLECALCIFEROL 25 MCG (1000 IU) TABLET PO SCH (08:41)
[2020-11-29] MEDS: BRIMONIDINE TARTRATE 0.2% DROPS 5 ML BTL LEFT EYE SCH ×2 (08:42→20:01)
[2020-11-29] MEDS: ASPIRIN 300 MG SUPP RECTAL SCH (08:42)
[2020-11-29] MEDS: TIMOLOL 0.5% OPHTH DROPS 5 ML BTL LEFT EYE SCH ×2 (08:42→20:01)
[2020-11-29] MEDS: ESCITALOPRAM 10 MG TAB PO SCH (08:44)
[2020-11-29] MEDS: levETIRAcetam IV 1,500 MG in SALINE 1 100ML.BAG IVPB SCH (08:59)
[2020-11-29] MEDS: LACOSAMIDE IV 200 MG in SODIUM CHLORIDE 0.9% 50 ML IVPB SCH (09:52)
--- NOTE | 2020-11-29 13:32 | P.PN ---
Subjective Progress Note Date: 11/29/20 Patient apparently got worse overnight. He was again very confused, lethargic, not able to speak. Patient's dose of Vimpat was increased to 200 mg twice a day and Keppra 1500 mg twice a day. This morning patient continues to be lethargic, confused as below. Very slow mentation. Continues to be slightly shaky. Telemetry monitoring showing sinus rhythm with PVCs. Objective - Vital Signs Vital signs: Vital Signs Temp 98.6 F 11/29/20 04:00 Pulse 74 11/29/20 08:10 Resp 18 11/29/20 08:10 BP 173/85 11/29/20 08:10 Pulse Ox 93 L 11/29/20 08:10 Intake & Output 11/28/20 11/29/20 11/29/20 18:59 06:59 18:59 Intake Total 0 118 Output Total 210 Balance -210 118 Weight 85.5 kg Intake: Oral 0 118 Output: Urine 210 Other: Voiding Method Diaper Diaper Diaper External Catheter Incontinent External Catheter # Voids 3 2 # Bowel Movements 1 - Exam On examination patient is very somewhat slow mentation, encephalopathic. Patient dozes off, requires multiple attempts to have open his eyes. Patient able to tell me his full name, and that he is 84 years of age, and was able to name flashlight. Patient states is November and the year is 2019. He then mumbles stating "I went to the hospital". That he states "my whole body..." (left incomplete sentence). Patient then stated "my dog is doing good". - Labs CBC & Chem 7: 11/26/20 21:43 11/29/20 06:35 Labs: Abnormal Lab Results - Last 24 Hours (Table) 11/28/20 11/29/20 Range/Units 21:40 06:35 Sodium 136 L (137-145) mmol/L BUN 27 H (9-20) mg/dL Glucose 106 H (74-99) mg/dL Urine Protein 1+ H (Negative) Urine Blood Small H (Negative) Ur Leukocyte Esterase Large H (Negative) Urine WBC 167 H (0-5) /hpf Urine WBC Clumps Many H (None) /hpf Amorphous Sediment Rare H (None) /hpf Urine Bacteria Many H (None) /hpf Urine Mucus Occasional H (None) /hpf Microbiology - Last 24 Hours (Table) 11/28/20 21:40 Urine Culture - Preliminary Urine,Voided Assessment and Plan Assessment: * 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 Patient has presented with altered mental status, with focal findings on examination including expressive aphasia, perseveration, right visual field neglect and right hemiparesis. No evidence of acute stroke on MRI. EEG revealed significant left hemispheric focal slowing (rhythmic and arrhythmic) with some left parietal sharp waves. * Seizure disorder. * Hypertension * History of DVT and PE, on long-term Xarelto. Patient has been compliant with medications. Plan: * Patient's mentation got worse last night. His dose of Vimpat was increased to 200 mg twice a day, and Keppra 1500 twice a day. Patient continues to be very lethargic, encephalopathic. We will repeat EEG today to follow-up on his seizure disorder. * EEG 11/27/2020 shows abnormal EEG due to presence of continuous focal rhythmic and arrhythmic delta slowing involving the left hemispheric region with some sharp waves in the left parietal region, suggestive of focal cortical neuronal dysfunction with underlying cortical irritability and tendency for seizures. * MRI of the brain revealed no acute ischemia. Some small vessel disease. Acute stroke ruled out. * Resume anticoagulation with Xarelto and aspirin 81 mg, when able to tolerate oral route. * DVT prophylaxis as per IM. May resume Xarelto for DVT prophylaxis, when able to take by mouth meds. * We will follow. Addendum: Reviewed EEG from this morning. EEG is abnormal due to somewhat suppressed background involving the left hemispheric region. High amplitude delta slowing in the left hemispheric region has resolved, replaced by this suppressed activity, likely post ictal effect. No epileptiform activity was seen. Clinical correlation also recommended. Based upon this EEG, I will decrease dose of Vimpat to 150 mg twice a day and Keppra 1000 mg twice a day. Hopefully his mentation will gradually improve. Dr. Cartwright to cover neurology service over the weekend. May switch both antiepileptic medications to oral route when able to swallow.
--- NOTE | 2020-11-29 14:59 | EEG ---
ELECTROENCEPHALOGRAM REPORT DATE OF SERVICE: 11/29/2020 PREAMBLE: This is an 85-year-old male with history of seizure disorder. Patient has a recent very abnormal EEG. The patient has persistent mental dysfunction. Therefore, this is a followup EEG. EEG FINDINGS: This is a 21 channel routine EEG recording in a patient utilizing 10/20 international system with referential and bipolar montages. The recording starts and continues with the presence of relatively better discernible background involving the right hemispheric region, in which there was 6-7 hertz theta activity seen which is posterior dominant, not clearly reactive to eye opening or closing. The high amplitude and delta activity involving the left hemispheric region have now resolved, which is replaced by somewhat suppressed low-voltage fast frequency activity. Different stages of sleep were not seen. No focal or generalized epileptiform activity was seen. IMPRESSION: This is an abnormal EEG due to somewhat suppressed background involving the left hemispheric region. The high-amplitude delta slowing in the left hemispheric region has resolved, replaced by this suppressed activity, likely postictal effect. No epileptiform activity was seen. Clinical correlation also recommended. MMIRMA / NAPOLEONN: [id number] / MTDMarvin
--- NOTE | 2020-11-29 16:23 | P.PN ---
Subjective Progress Note Date: 11/29/20 History of Present Illness This is an 85-year-old male patient of Dr. 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 He was readmitted from April 28 through May 06, 2020, at which time he was seen by multiple consultants including neurology for seizure activity and adjustments were made on Keppra and patient was started on Vimpat. He was also treated for acute catheter associated urinary tract infection, urinary retention, hematuria and was seen by Dr. Gaspar. Patient was seen by Dr. Reina for hyponatremia with SIADH. Patient was stabilized and discharged back to [facility]. Patient was seen at [facility] for seizure activity or an unresponsive episodes were side effect of the Keppra and the only wanted him on Vimpat but patient was somehow started also on Briviact at that time. He was again hospitalized at [facility] for unresponsive episode and was transferred to [facility] as was advised by neurologist, Dr. Pedroza. Patient had an unresponsive episode of 20 minutes and was only responding to pain and then return to baseline. Patient apparently is no longer at [place] for subacute rehab. Patient apparently was last seen at 4 PM and had been sleeping all day and mental status was found to be altered and patient was unable to provide any information. Patient was brought into [facility] emergency center for evaluation. He was afebrile, heart rate 76, initial blood pressure 169/114, pulse ox 93%. EKG was in normal sinus rhythm with LVH. CAT scan of the brain showed no acute process. Mild to moderate atrophy. Moderate to severe chronic small vessel ischemic redemonstrated. No change from previous. Chest x-ray shows chronic changes and cardiomegaly without acute process. WBC 6.3, hemoglobin 12.6. INR 1.3. Sodium 133 otherwise electrolytes and renal function normal. Blood sugar was 110. Liver function tests normal. Troponin negative. Carotid virus PCR not detected. Triglycerides 96, cholesterol 206, LDL 122, HDL 65. Patient is minimally responsive and only open eyes to verbal stimuli. He is unable to follow any commands. Patient is currently nothing by mouth and Keppra will be transitioned to IV piggyback, consult with neurology, PT OT and speech therapies., 11/28: MRI of the brain revealed stable, chronic small vessel ischemic changes, age-related atrophy. EEG is abnormal suggestive of underlying cerebral dysfunction and may be related to structural abnormality or may be post ictal effect, sharp waves in the left parietal region suggestive underlying cortical irritability and tendency for seizures. Patient has been afebrile, heart rate 82, blood pressure 153/89, pulse ox 94% on room air. Patient has been seen by neurology with recommendations for aspirin 300 mg rectally, increase Keppra to 1000 mg twice daily and started Vimpat IV 100 mg twice daily. Patient is in bed with his eyes open, more awake today but is unable to follow any commands. Later in the day, nurse called the patient had improvement of his mental status and speech come back to evaluate swallow. If patient is able to swallow, we will resume his home medications, if not we will have to start heparin drip to replace Xarelto. 11/29: Patient did pass swallow evaluation and started on home oral medications including Xarelto. Patient is more awake and alert today. He is saying a few words such as I want a walker. He is able to follow a few simple commands but is slow to respond. He is able to move all 4 extremities. He is noted to have a tremor. Neurology has increased Vimpat to 150 mg twice a day and Keppra to 1500 mg twice a day. EEG reveals significant left hemispheric focal slowing with some left parietal sharp waves. Neurology has also recommended aspirin 81 mg with Xarelto. He has been afebrile, heart rate 70, blood pressure 156/75 and pulse ox 93% on room air. assistant administrator is sinus rhythm with PVCs. Sodium 136, otherwise electrolytes normal. BUN 27 and creatinine 0.75. Urinalysis revealed leukoesterase large, WBC 167 and WBC clumps many. Urine culture is in progress. Patient will be started on ceftriaxone. Discharge plan is for most likely on Wednesday. Review of Systems Unable to obtain due to patient's mental status. Physical Examination Gen: This is an 85-year-old male. He is resting in bed and appears comfortable. HEENT: Head is atraumatic, normocephalic. Pupils equal, round. Sclerae is anicteric. Weight NECK: Supple. No JVD. No lymphadenopathy. No thyromegaly. LUNGS: Clear to auscultation. No wheezes or rhonchi. No intercostal retractions. HEART: Regular rate and rhythm. Systolic ejection murmur. ABDOMEN: Soft. Bowel sounds are present. No masses. No tenderness. EXTREMITIES: No pedal edema. No calf tenderness. NEUROLOGICAL: Patient is awake and alert. Patient is able to verbalize a few words but is very slow to respond and confused. Tremor noted. He is able to move all 4 extremities. Assessment and Plan 1. Metabolic encephalopathy most likely secondary to epilepsy with focal onset seizures. Consult with neurology. Patient is currently nothing by mouth, PT, OT, speech therapy. Continue aspirin 81 mg daily, Xarelto resumed. 2. Seizure disorder, follows with Dr. Byrd. Keppra increased to 1000 mg twice daily and VimPat increased to 150 mg IV twice daily added by neurology. Neurology consult appreciated. 3. History of Bilateral pulmonary embolism originating from DVT right leg. Continue Xarelto. 4. Hypertension. Continue Coreg 12.5 mg twice daily, losartan 12.5 mg daily. 5. Hyperlipidemia. Continue Lipitor 40 mg daily, Zetia 10 mg daily. 6. History of CVA. 7. Coronary artery disease status post angioplasty and stent placement. Continue Lipitor. 8. Benign prostatic hypertrophy with history of urinary retention that required chronic Olivo catheter. Continue Flomax 0.4 mg twice daily. 9. Restless leg syndrome. On Mirapex 1 mg twice daily. 10. GI prophylaxis. Protonix. 11. DVT prophylaxis. Will resume Xarelto. CODE STATUS: Full code Discharge plan [facility] for subacute rehab on Wednesday Impression and plan of care have been directed as dictated by the signing physician. Suly Gallo nurse practitioner acting as scribe for signing physi camilla. Objective - Vital Signs Vital signs: Vital Signs Temp 98.6 F 11/29/20 04:00 Pulse 74 11/29/20 08:10 Resp 18 11/29/20 08:10 BP 173/85 11/29/20 08:10 Pulse Ox 93 L 11/29/20 08:10 Intake & Output 11/28/20 11/29/20 11/29/20 18:59 06:59 18:59 Intake Total 0 118 Output Total 210 Balance -210 118 Weight 85.5 kg Intake: Oral 0 118 Output: Urine 210 Other: Voiding Method Diaper Diaper Diaper External Catheter Incontinent External Catheter # Voids 3 2 # Bowel Movements 1 - Labs CBC & Chem 7: 11/26/20 21:43 11/29/20 06:35 Labs: Abnormal Lab Results - Last 24 Hours (Table) 11/28/20 11/29/20 Range/Units 21:40 06:35 Sodium 136 L (137-145) mmol/L BUN 27 H (9-20) mg/dL Glucose 106 H (74-99) mg/dL Urine Protein 1+ H (Negative) Urine Blood Small H (Negative) Ur Leukocyte Esterase Large H (Negative) Urine WBC 167 H (0-5) /hpf Urine WBC Clumps Many H (None) /hpf Amorphous Sediment Rare H (None) /hpf Urine Bacteria Many H (None) /hpf Urine Mucus Occasional H (None) /hpf
[2020-11-29] MEDS: PRAMIPEXOLE 1 MG TAB PO SCH ×2 (17:00→20:01)
[2020-11-29] MEDS: RIVAROXABAN 20 MG TAB PO SCH (17:00)
[2020-11-29] MEDS: levETIRAcetam IV 1,000 MG in SALINE 1 100ML.BAG IVPB SCH (20:00)
[2020-11-29] MEDS: COLCHICINE 0.6 MG EACH PO SCH (20:00)
[2020-11-29] MEDS: MONTELUKAST 10 MG TAB PO SCH (20:00)
[2020-11-29] MEDS: ATORVASTATIN 40 MG TAB PO SCH (20:00)
[2020-11-29] MEDS: LATANOPROST 0.005% OPHTH DROPS 2.5 ML BTL BOTH EYES SCH (20:01)
[2020-11-29] MEDS: LACOSAMIDE IV 150 MG in SODIUM CHLORIDE 0.9% 50 ML IVPB SCH (20:52)
[2020-11-30] MEDS: SODIUM CHLORIDE 0.9% 1,000 ML IV SCH ×2 (06:18→14:14)
[2020-11-30] MEDS: carvediloL 12.5 MG TAB PO SCH ×2 (06:19→17:55)
[2020-11-30] MEDS: EZETIMIBE 10 MG TAB PO SCH (10:09)
[2020-11-30] MEDS: CHOLECALCIFEROL 25 MCG (1000 IU) TABLET PO SCH (10:09)
[2020-11-30] MEDS: levETIRAcetam IV 1,000 MG in SALINE 1 100ML.BAG IVPB SCH (10:09)
[2020-11-30] MEDS: FERROUS SULFATE 325 MG TAB PO SCH (10:09)
[2020-11-30] MEDS: ESCITALOPRAM 10 MG TAB PO SCH (10:10)
[2020-11-30] MEDS: ASPIRIN 81 MG PO SCH (10:10)
[2020-11-30] MEDS: CARBIDOPA-LEVODOPA 25-100 MG 1 EACH TAB PO SCH ×3 (10:10→20:13)
[2020-11-30] MEDS: TAMSULOSIN 0.4 MG CAP.ER.24H PO SCH (10:10)
[2020-11-30] MEDS: LOSARTAN 25 MG TAB PO SCH (10:10)
[2020-11-30] MEDS: FLUDROCORTISONE 0.1 MG TAB PO SCH (10:11)
[2020-11-30] MEDS: COLCHICINE 0.6 MG EACH PO SCH ×2 (10:11→20:15)
[2020-11-30] MEDS: LACOSAMIDE IV 150 MG in SODIUM CHLORIDE 0.9% 50 ML IVPB SCH ×2 (11:12→20:58)
[2020-11-30] MEDS ORDERED: LOSARTAN 25 MG TAB PO STA (13:23)
--- NOTE | 2020-11-30 13:38 | P.PN ---
Subjective Progress Note Date: 11/30/20 History of Present Illness This is an 85-year-old male patient of Dr. 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 He was readmitted from April 28 through May 06, 2020, at which time he was seen by multiple consultants including neurology for seizure activity and adjustments were made on Keppra and patient was started on Vimpat. He was also treated for acute catheter associated urinary tract infection, urinary retention, hematuria and was seen by Dr. Gaspar. Patient was seen by Dr. Reina for hyponatremia with SIADH. Patient was stabilized and discharged back to [facility]. Patient was seen at [facility] for seizure activity or an unresponsive episodes were side effect of the Keppra and the only wanted him on Vimpat but patient was somehow started also on Briviact at that time. He was again hospitalized at [facility] for unresponsive episode and was transferred to [facility] as was advised by neurologist, Dr. Pedroza. Patient had an unresponsive episode of 20 minutes and was only responding to pain and then return to baseline. Patient apparently is no longer at [place] for subacute rehab. Patient apparently was last seen at 4 PM and had been sleeping all day and mental status was found to be altered and patient was unable to provide any information. Patient was brought into [facility] emergency center for evaluation. He was afebrile, heart rate 76, initial blood pressure 169/114, pulse ox 93%. EKG was in normal sinus rhythm with LVH. CAT scan of the brain showed no acute process. Mild to moderate atrophy. Moderate to severe chronic small vessel ischemic redemonstrated. No change from previous. Chest x-ray shows chronic changes and cardiomegaly without acute process. WBC 6.3, hemoglobin 12.6. INR 1.3. Sodium 133 otherwise electrolytes and renal function normal. Blood sugar was 110. Liver function tests normal. Troponin negative. Carotid virus PCR not detected. Triglycerides 96, cholesterol 206, LDL 122, HDL 65. Patient is minimally responsive and only open eyes to verbal stimuli. He is unable to follow any commands. Patient is currently nothing by mouth and Keppra will be transitioned to IV piggyback, consult with neurology, PT OT and speech therapies., 11/28: MRI of the brain revealed stable, chronic small vessel ischemic changes, age-related atrophy. EEG is abnormal suggestive of underlying cerebral dysfunction and may be related to structural abnormality or may be post ictal effect, sharp waves in the left parietal region suggestive underlying cortical irritability and tendency for seizures. Patient has been afebrile, heart rate 82, blood pressure 153/89, pulse ox 94% on room air. Patient has been seen by neurology with recommendations for aspirin 300 mg rectally, increase Keppra to 1000 mg twice daily and started Vimpat IV 100 mg twice daily. Patient is in bed with his eyes open, more awake today but is unable to follow any commands. Later in the day, nurse called the patient had improvement of his mental status and speech come back to evaluate swallow. If patient is able to swallow, we will resume his home medications, if not we will have to start heparin drip to replace Xarelto. 11/29: Patient did pass swallow evaluation and started on home oral medications including Xarelto. Patient is more awake and alert today. He is saying a few words such as I want a walker. He is able to follow a few simple commands but is slow to respond. He is able to move all 4 extremities. He is noted to have a tremor. Neurology has increased Vimpat to 150 mg twice a day and Keppra to 1500 mg twice a day. EEG reveals significant left hemispheric focal slowing with some left parietal sharp waves. Neurology has also recommended aspirin 81 mg with Xarelto. He has been afebrile, heart rate 70, blood pressure 156/75 and pulse ox 93% on room air. engine monitor is sinus rhythm with PVCs. Sodium 136, otherwise electrolytes normal. BUN 27 and creatinine 0.75. Urinalysis revealed leukoesterase large, WBC 167 and WBC clumps many. Urine culture is in progress. Patient will be started on ceftriaxone. Discharge plan is for most likely on Wednesday. 11/30 Patient examined bedside continues to have difficulty with speech but is able to communicate more. He does complain of significant wrist pain and tenderness involving the right upper extremity. Patient also noted to have swelling involving the wrist and the hand. No IV line was obtained in the right upper extremity. No overlying erythema or warmth noted. Patient does not feel difficulties in made any improvement. Repeat EEG was obtained yesterday that suggests suppressed background involving the left hemispheric region but does does slowing has resolved but does have effect of post ictal. No epileptiform activity was seen. Ultrasound of the upper extremity to be obtained. Cold compression and upper extremity need to be elevated. Vimpat reduced to 150 twice a day and Keppra continued at 1000 twice a day. Vital suggest increased SBP will increase losartan to 25 mg daily. Review of Systems-unable to obtain due to mental status Objective - Vital Signs Vital signs: Vital Signs Temp 98.8 F 11/30/20 12:00 Pulse 92 11/30/20 12:00 Resp 18 11/30/20 12:00 BP 177/63 11/30/20 12:00 Pulse Ox 94 L 11/30/20 12:00 Intake & Output 11/29/20 11/30/20 11/30/20 18:59 06:59 18:59 Intake Total 493 250 20 Balance 493 250 20 Weight 89.5 kg Intake: Oral 493 250 20 Other: Voiding Method Diaper Diaper Diaper # Voids 2 2 2 - Exam Gen: This is an 85-year-old male. He is resting in bed and appears comfortable. HEENT: Head is atraumatic, normocephalic. Pupils equal, round. Sclerae is anicteric. Weight NECK: Supple. No JVD. No lymphadenopathy. No thyromegaly. LUNGS: Clear to auscultation. No wheezes or rhonchi. No intercostal retractions. HEART: Regular rate and rhythm. Systolic ejection murmur. ABDOMEN: Soft. Bowel sounds are present. No masses. No tenderness. EXTREMITIES: No pedal edema. No calf tenderness. NEUROLOGICAL: Patient is awake and alert. Patient is able to verbalize a few words but is very slow to respond . Tremor noted. He is able to move all 4 extremities. swelling noted involving the wrist, and distal forearm, no overl rich redness or warmth, joint tender to touch - Labs CBC & Chem 7: 11/26/20 21:43 11/29/20 06:35 Labs: Microbiology - Last 24 Hours (Table) 11/28/20 21:40 Urine Culture - Preliminary Urine,Voided Gram Neg Bacilli Assessment and Plan Plan: 1. Metabolic encephalopathy with right sided weakness most likely secondary to epilepsy with focal onset seizures. MRI negative for acute stroke brain atrophy noted, stroke ruled out. Consult with neurology. on dysphagia diet with 1: 1 supervision Continue aspirin 81 mg daily, Xarelto resumed. 2. 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 Byrd. Keppra increased to 1000 mg twice daily and VimPat 150 mgpo twice daily added by neurology. Neurology consult appreciated. 3. History of Bilateral pulmonary embolism originating from DVT right leg. Continue Xarelto. 4. Hypertension. Continue Coreg 12.5 mg twice daily, losartan increased to 25 mg po daily 5. Hyperlipidemia. Continue Lipitor 40 mg daily, Zetia 10 mg daily. 6. 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 7. Coronary artery disease status post angioplasty and stent placement. Continue Lipitor. 8. Benign prostatic hypertrophy with history of urinary retention that required chronic Olivo catheter. Continue Flomax 0.4 mg twice daily. 9. Restless leg syndrome. On Mirapex 1 mg twice daily. 10. GI prophylaxis. Protonix. 11. DVT prophylaxis. Will resume Xarelto. 12 Parkinson disease on sinemet 13. Autonomic hypotension on fludrocortisone 0.1 mg po daily CODE STATUS: Full code Discharge plan [facility] for subacute rehab on Wednesday
--- NOTE | 2020-11-30 13:39 | US ---
EXAMINATION TYPE: US venous doppler duplex UE RT DATE OF EXAM: 11/30/2020 COMPARISON: NONE CLINICAL HISTORY: poss dvt. Right forearm/hand swelling, redness and ecchymosis x couple days per pat ient's . Patient is on blood thinner from right leg DVT at time of knee surgery. SIDE PERFORMED: Right arm US exam is technically limited by patient's reduced external arm rotation. Right Arm: Negative for DVT and negative for SVT. Edema channels are noted in anterior and posterior skin at distal arm. IMPRESSION: Grayscale, color doppler, spectral doppler imaging performed of the deep veins of the upper extremiti es. There is normal flow, compressibility and vascular waveforms.
[2020-11-30] MEDS: TIMOLOL 0.5% OPHTH DROPS 5 ML BTL LEFT EYE SCH ×2 (14:12→20:14)
[2020-11-30] MEDS: BRIMONIDINE TARTRATE 0.2% DROPS 5 ML BTL LEFT EYE SCH ×2 (14:12→20:14)
[2020-11-30] MEDS: RIVAROXABAN 20 MG TAB PO SCH (17:55)
[2020-11-30] MEDS: PRAMIPEXOLE 1 MG TAB PO SCH ×2 (17:55→20:15)
--- NOTE | 2020-11-30 18:15 | P.PN ---
Subjective Progress Note Date: 11/30/20 The patient is an 85-year-old male who is seen in neurologic follow-up on November 30, 2020 via teleneurology. The patient's is at the bedside, at the time of my evaluation. She feels like her has gotten worse since coming into the hospital. Today, he may be slightly better. The patient's reports that he has been having hallucinations. Approximately one week prior to presentation to the emergency department, the patient saw his family doctor and had a Keppra level checked. Apparently this level was found to be low and so the family doctor increased the patient's dose to 500 mg twice daily. The patient had previously been taking 250 in the morning and 500 evening. His most recent seizure was in May 2020. Mrs. Rivera reports that her had been doing well. He was working with physical therapy and was doing okay. After the dosage of Keppra was incr eased, he had more difficulty working with physical therapy and tired more easily. This past Wednesday, the patient was reportedly confused and slept most of the day. Mrs. Rivera reports that the patient's Keppra dosing has gone up to 1000 mg twice daily. She is concerned that he is receiving too much medication. Mrs. Rivera reports that her has Parkinson's disease and was also reportedly diagnosed with multiple system atrophy, at [facility]. Objective - Vital Signs Vital signs: Vital Signs Temp 98.7 F 11/30/20 14:30 Pulse 85 11/30/20 14:30 Resp 18 11/30/20 14:30 BP 158/81 11/30/20 14:30 Pulse Ox 95 11/30/20 14:30 Intake & Output 11/29/20 11/30/20 11/30/20 18:59 06:59 18:59 Intake Total 493 250 20 Balance 493 250 20 Weight 89.5 kg Intake: Oral 493 250 20 Other: Voiding Method Diaper Diaper Diaper # Voids 2 2 2 - Exam Gen.: The patient is reclining in the bed. He is well-nourished, well-developed and in no acute distress. HEENT: Head is atraumatic, normocephalic. Fundus not visualized. There is no scleral icterus. Mucous membranes are moist. Mental status: The patient is awake and alert. He is oriented to his name, age and date of . He is not oriented to his current location or the current year. Cranial nerves: Grossly intact Motor: The patient is able to move all 4 extremities. - Labs CBC & Chem 7: 11/26/20 21:43 11/29/20 06:35 Labs: Abnormal Lab Results - Last 24 Hours (Table) 11/30/20 11/30/20 Range/Units 12:25 12:25 ESR 82 H (0-15) mm/hr C-Reactive Protein 148.0 H (<10.0) mg/L Microbiology - Last 24 Hours (Table) 11/28/20 21:40 Urine Culture - Preliminary Urine,Voided Gram Neg Bacilli Assessment and Plan Assessment: 1. History of seizure disorder, presenting to the emergency Department with mental status changes following recent increase in dosage of levetiracetam and UTI Possible confusion and sedation secondary to medication dosage versus UTI versus a combination 2. Reported worsening 2 nights ago, with hallucinations and confusion perhaps secondary to UTI and hospitalization 3. History of Parkinson's disease, and/or multiple system atrophy 4. Reported history of recurrent urinary tract infections Plan: 1. Will lower dose of levetiracetam to 750 mg every 12 hours 2. Will also taper dosing of Vimpat. This will be done after the patient has proven to show benefit from the lower dose of Keppra, without breakthrough seizure 3. Your treatment of urinary tract infection Time with Patient: Less than 30 (spent 20 minutes with patient via teleeurology)
[2020-11-30] MEDS: levETIRAcetam IV 750 MG in SODIUM CHLORIDE 0.9% 100 ML IVPB SCH (20:13)
[2020-11-30] MEDS: MONTELUKAST 10 MG TAB PO SCH (20:13)
[2020-11-30] MEDS: ATORVASTATIN 40 MG TAB PO SCH (20:13)
[2020-11-30] MEDS: LATANOPROST 0.005% OPHTH DROPS 2.5 ML BTL BOTH EYES SCH (20:14)
[2020-12-01] MEDS: SODIUM CHLORIDE 0.9% 1,000 ML IV SCH ×3 (06:10→23:26)
[2020-12-01] MEDS: carvediloL 12.5 MG TAB PO SCH ×2 (06:11→15:37)
[2020-12-01] MEDS: CHOLECALCIFEROL 25 MCG (1000 IU) TABLET PO SCH (08:39)
[2020-12-01] MEDS: ASPIRIN 81 MG PO SCH (08:39)
[2020-12-01] MEDS: FLUDROCORTISONE 0.1 MG TAB PO SCH (08:40)
[2020-12-01] MEDS: TAMSULOSIN 0.4 MG CAP.ER.24H PO SCH (08:40)
[2020-12-01] MEDS: EZETIMIBE 10 MG TAB PO SCH (08:40)
[2020-12-01] MEDS: CARBIDOPA-LEVODOPA 25-100 MG 1 EACH TAB PO SCH ×3 (08:40→23:26)
[2020-12-01] MEDS: FERROUS SULFATE 325 MG TAB PO SCH (08:40)
[2020-12-01] MEDS: COLCHICINE 0.6 MG EACH PO SCH ×2 (08:40→23:44)
[2020-12-01] MEDS: ESCITALOPRAM 10 MG TAB PO SCH (08:40)
[2020-12-01] MEDS: BRIMONIDINE TARTRATE 0.2% DROPS 5 ML BTL LEFT EYE SCH ×2 (08:41→23:33)
[2020-12-01] MEDS ORDERED: LOSARTAN 25 MG TAB PO SCH (09:00)
[2020-12-01] MEDS: LACOSAMIDE IV 150 MG in SODIUM CHLORIDE 0.9% 50 ML IVPB SCH (09:24)
[2020-12-01] MEDS: levETIRAcetam IV 750 MG in SODIUM CHLORIDE 0.9% 100 ML IVPB SCH ×2 (09:25→23:29)
[2020-12-01] MEDS: TIMOLOL 0.5% OPHTH DROPS 5 ML BTL LEFT EYE SCH ×2 (09:29→23:33)
--- NOTE | 2020-12-01 14:49 | P.PN ---
Subjective Progress Note Date: 12/01/20 The patient is an 85-year-old male who is seen in neurologic follow-up on November 30, 2020 via teleneurology. The patient's is at the bedside, at the time of my evaluation. She feels like her has gotten worse since coming into the hospital. Today, he may be slightly better. The patient's reports that he has been having hallucinations. Approximately one week prior to presentation to the emergency department, the patient saw his family doctor and had a Keppra level checked. Apparently this level was found to be low and so the family doctor increased the patient's dose to 500 mg twice daily. The patient had previously been taking 250 in the morning and 500 evening. His most recent seizure was in May 2020. Mrs. Rivera reports that her had been doing well. He was working with physical therapy and was doing okay. After the dosage of Keppra was incr eased, he had more difficulty working with physical therapy and tired more easily. This past Wednesday, the patient was reportedly confused and slept most of the day. Mrs. Rivera reports that the patient's Keppra dosing has gone up to 1000 mg twice daily. She is concerned that he is receiving too much medication. Mrs. Rivera reports that her has Parkinson's disease and was also reportedly diagnosed with multiple system atrophy, at [facility]. December 01, 2020, the patient is seen in neurologic follow-up via teleneurology. The patient's nurse and are at the bedside. The patient continues to have hallucinations. He is more agitated and reaching for things today. He apparently did not get much sleep last night. He has made a few attempts to get out of bed. The patient's blood pressure has been running high today. Sensitivities regarding urine culture have returned, ceftriaxone is an appropriate medication to treat the patient's current urinary tract infection. He has been receiving this medication for 48 hours. Objective - Vital Signs Vital signs: Vital Signs Temp 97.8 F 12/01/20 12:00 Pulse 64 12/01/20 12:00 Resp 18 12/01/20 12:00 BP 195/95 12/01/20 12:00 Pulse Ox 95 12/01/20 12:00 Intake & Output 11/30/20 12/01/2021 17:59 06:59 18:59 Intake Total Balance Weight Intake: Oral Other: Voiding Method Diaper # Voids # Bowel Movements 3 - Exam Gen.: The patient is reclining in the bed. He is in no acute distress. HEENT: Head is atraumatic, normocephalic. Fundus not visualized. There is no scleral icterus. Mental status: Patient is awake and alert. He is able to state his name. He is able to follow some simple commands. He appears distracted by the bed covers and perhaps is hallucinating. He says he is seeing a "ugly chair". - Labs CBC & Chem 7: 11/26/20 21:43 11/29/20 06:35 Labs: Abnormal Lab Results - Last 24 Hours (Table) 11/30/20 Range/Units 12:25 ESR 82 H (0-15) mm/hr Microbiology - Last 24 Hours (Table) 11/28/20 21:40 Urine Culture - Final Urine,Voided Escherichia coli Assessment and Plan Assessment: 1. Toxic encephalopathy secondary to urinary tract infection 2. History of seizure disorder, presenting to the emergency Department with mental status changes following recent increase in dosage of levetiracetam and UTI Possible confusion and sedation secondary to medication dosage versus UTI versus a combination 3. Reported worsening 2 nights ago, with hallucinations and confusion perhaps secondary to UTI and hospitalization 4. History of Parkinson's disease, and/or multiple system atrophy 5. Reported history of recurrent urinary tract infections Plan: 1. Will continue current antiepileptic medication doses 2. Will try melatonin 3 mg at bedtime, to help with sleep 3. If melatonin is not effective, May consider trazodone 4. Continue antibiotic for UTI and hallucinations should resolve as infection is treated. If hallucinations become more severe consider the use of Seroquel Time with Patient: Less than 30 (spent 20 minutes with patient via teleneurology)
[2020-12-01] MEDS ORDERED: LOSARTAN 25 MG TAB PO STA (14:57)
--- NOTE | 2020-12-01 15:01 | P.PN ---
Subjective Progress Note Date: 12/01/20 History of Present Illness This is an 85-year-old male patient of Dr. 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 He was readmitted from April 28 through May 06, 2020, at which time he was seen by multiple consultants including neurology for seizure activity and adjustments were made on Keppra and patient was started on Vimpat. He was also treated for acute catheter associated urinary tract infection, urinary retention, hematuria and was seen by Dr. Gaspar. Patient was seen by Dr. Reina for hyponatremia with SIADH. Patient was stabilized and discharged back to [facility]. Patient was seen at [facility] for seizure activity or an unresponsive episodes were side effect of the Keppra and the only wanted him on Vimpat but patient was somehow started also on Briviact at that time. He was again hospitalized at [facility] for unresponsive episode and was transferred to [facility] as was advised by neurologist, Dr. Pedroza. Patient had an unresponsive episode of 20 minutes and was only responding to pain and then return to baseline. Patient apparently is no longer at [place] for subacute rehab. Patient apparently was last seen at 4 PM and had been sleeping all day and mental status was found to be altered and patient was unable to provide any information. Patient was brought into [facility] emergency center for evaluation. He was afebrile, heart rate 76, initial blood pressure 169/114, pulse ox 93%. EKG was in normal sinus rhythm with LVH. CAT scan of the brain showed no acute process. Mild to moderate atrophy. Moderate to severe chronic small vessel ischemic redemonstrated. No change from previous. Chest x-ray shows chronic changes and cardiomegaly without acute process. WBC 6.3, hemoglobin 12.6. INR 1.3. Sodium 133 otherwise electrolytes and renal function normal. Blood sugar was 110. Liver function tests normal. Troponin negative. Carotid virus PCR not detected. Triglycerides 96, cholesterol 206, LDL 122, HDL 65. Patient is minimally responsive and only open eyes to verbal stimuli. He is unable to follow any commands. Patient is currently nothing by mouth and Keppra will be transitioned to IV piggyback, consult with neurology, PT OT and speech therapies., 11/28: MRI of the brain revealed stable, chronic small vessel ischemic changes, age-related atrophy. EEG is abnormal suggestive of underlying cerebral dysfunction and may be related to structural abnormality or may be post ictal effect, sharp waves in the left parietal region suggestive underlying cortical irritability and tendency for seizures. Patient has been afebrile, heart rate 82, blood pressure 153/89, pulse ox 94% on room air. Patient has been seen by neurology with recommendations for aspirin 300 mg rectally, increase Keppra to 1000 mg twice daily and started Vimpat IV 100 mg twice daily. Patient is in bed with his eyes open, more awake today but is unable to follow any commands. Later in the day, nurse called the patient had improvement of his mental status and speech come back to evaluate swallow. If patient is able to swallow, we will resume his home medications, if not we will have to start heparin drip to replace Xarelto. 11/29: Patient did pass swallow evaluation and started on home oral medications including Xarelto. Patient is more awake and alert today. He is saying a few words such as I want a walker. He is able to follow a few simple commands but is slow to respond. He is able to move all 4 extremities. He is noted to have a tremor. Neurology has increased Vimpat to 150 mg twice a day and Keppra to 1500 mg twice a day. EEG reveals significant left hemispheric focal slowing with some left parietal sharp waves. Neurology has also recommended aspirin 81 mg with Xarelto. He has been afebrile, heart rate 70, blood pressure 156/75 and pulse ox 93% on room air. 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 Sodium 136, otherwise electrolytes normal. BUN 27 and creatinine 0.75. Urinalysis revealed leukoesterase large, WBC 167 and WBC clumps many. Urine culture is in progress. Patient will be started on ceftriaxone. Discharge plan is for most likely on Wednesday. 11/30 Patient examined bedside continues to have difficulty with speech but is able to communicate more. He does complain of significant wrist pain and tenderness involving the right upper extremity. Patient also noted to have swelling involving the wrist and the hand. No IV line was obtained in the right upper extremity. No overlying erythema or warmth noted. Patient does not feel difficulties in made any improvement. Repeat EEG was obtained yesterday that suggests suppressed background involving the left hemispheric region but does does slowing has resolved but does have effect of post ictal. No epileptiform activity was seen. Ultrasound of the upper extremity to be obtained. Cold compression and upper extremity need to be elevated. Vimpat reduced to 150 twice a day and Keppra continued at 1000 twice a day. Vital suggest increased SBP will increase losartan to 25 mg daily. 12/01 patient states confused. His speech is clear able to comprehend and follow commands. Patient does have visual hallucination and sees his dog is in the room. Patient thinks he is in [place]. Patient does have urinary tract infection is getting ceftriaxone. Keppra dose reduced to 750 twice a day per neurology with plan to taper the dose if continues to his remained confused. Patient's inquiring about inpatient rehab as she would like to visit him every day at the rehab. Continue ceftriaxone for UTI. Continue colchicine for wrist inflammation. Seizure medications per neurology. Vitals assess patient's blood pressure is 190/95 oxygen saturation 95% on room air. Losartan increased to 50 mg by mouth daily due to ongoing blood pressure. Labs ordered for tomorrow Review of Systems-unable to obtain due to mental status Objective - Vital Signs Vital signs: Vital Signs Temp 97.8 F 12/01/20 12:00 Pulse 64 12/01/20 12:00 Resp 18 12/01/20 12:00 BP 195/95 12/01/20 12:00 Pulse Ox 95 12/01/20 12:00 Intake & Output 11/30/20 12/01/20 12/01/20 17:59 06:59 18:59 Intake Total Balance Weight Intake: Oral Other: Voiding Method Diaper # Voids # Bowel Movements 3 - Exam Gen: This is an 85-year-old male. He is resting in bed and appears comfortable. HEENT: Head is atraumatic, normocephalic. Pupils equal, round. Sclerae is an icteric. Weight NECK: Supple. No JVD. No lymphadenopathy. No thyromegaly. LUNGS: Clear to auscultation. No wheezes or rhonchi. No intercostal retractions. HEART: Regular rate and rhythm. Systolic ejection murmur. ABDOMEN: Soft. Bowel sounds are present. No masses. No tenderness. EXTREMITIES: No pedal edema. No calf tenderness. Laying in the wrist improved no overlying redness noted. NEUROLOGICAL: Patient is awake and alert. Speech is clear. Visual hallucinations present - Labs CBC & Chem 7: 11/26/20 21:43 11/29/20 06:35 Labs: Abnormal Lab Results - Last 24 Hours (Table) 11/30/20 Range/Units 12:25 ESR 82 H (0-15) mm/hr Microbiology - Last 24 Hours (Table) 11/28/20 21:40 Urine Culture - Final Urine,Voided Escherichia coli Assessment and Plan Plan: 1. Metabolic encephalopathy with right sided weakness most likely secondary to epilepsy with focal onset seizures. Other factors contributing includes UTI and delirium. MRI negative for acute stroke brain atrophy noted, stroke ruled out. Consult with neurology. on dysphagia diet with 1: 1 supervision Continue aspirin 81 mg daily, Xarelto resumed. Keppra dose reduced to 750 twice a day 2. 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 Byrd. Keppra reduced to 750 twice daily and VimPat 150 mgpo twice daily added by neurology. Neurology consult appreciated. 3. History of Bilateral pulmonary embolism originating from DVT right leg. Continue Xarelto. 4. Hypertension. Continue Coreg 12.5 mg twice daily, losartan increased to 50 mg po daily 5. Hyperlipidemia. Continue Lipitor 40 mg daily, Zetia 10 mg daily. 6. 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 7. Coronary artery disease status post angioplasty and stent placement. Continue Lipitor. 8. Benign prostatic hypertrophy with history of urinary retention that required chronic Olivo catheter. Continue Flomax 0.4 mg twice daily. 9. Restless leg syndrome. On Mirapex 1 mg twice daily. 10. GI prophylaxis. Protonix. 11. DVT prophylaxis. Will resume Xarelto. 12 Parkinson disease on sinemet 13. Autonomic hypotension on fludrocortisone 0.1 mg po daily 14. Acute UTI continue Rocephin 1 g daily CODE STATUS: Full code Discharge plan [facility] for subacute rehab versus inpatient rehab depending on patient's preference. patient is not ready for discharge due to ongoing confusion
[2020-12-01] MEDS: PRAMIPEXOLE 1 MG TAB PO SCH ×2 (15:37→23:44)
[2020-12-01] MEDS: RIVAROXABAN 20 MG TAB PO SCH (15:37)
[2020-12-01] MEDS: MELATONIN 3 MG TABLET PO SCH (23:26)
[2020-12-01] MEDS: ATORVASTATIN 40 MG TAB PO SCH (23:26)
[2020-12-01] MEDS: MONTELUKAST 10 MG TAB PO SCH (23:26)
[2020-12-01] MEDS: LATANOPROST 0.005% OPHTH DROPS 2.5 ML BTL BOTH EYES SCH (23:34)
[2020-12-02] MEDS: LACOSAMIDE IV 150 MG in SODIUM CHLORIDE 0.9% 50 ML IVPB SCH ×2 (00:14→09:44)
[2020-12-02] MEDS: carvediloL 12.5 MG TAB PO SCH ×2 (06:42→17:00)
[2020-12-02] MEDS: ACETAMINOPHEN TAB 325 MG TAB PO PRN ×2 (06:42→21:41)
[2020-12-02 06:48] LABS: Basophils % (A) 1 %; Eosinophils # (A) 0.3 k/uL (0-0.7); Eosinophils % (A) 6 %; HCT 31.4 % (39.0-53.0); HGB 10.9 gm/dL (13.0-17.5); Lymphocytes # (A) 0.7 k/uL (1.0-4.8); Lymphocytes % (A) 17 %; MCH 32.3 pg (25.0-35.0); MCHC 34.7 g/dL (31.0-37.0); MCV 93.1 fL (80.0-100.0); Mean Platelet Volume 6.9; Monocytes # (A) 0.3 k/uL (0-1.0); Monocytes % (A) 7 %; Neutrophils # (A) 2.9 k/uL (1.3-7.7); Neutrophils % (A) 68 %; Platelet Count 200 k/uL (150-450); RBC 3.37 m/uL (4.30-5.90); RDW 13.5 % (11.5-15.5); WBC 4.3 k/uL (3.8-10.6)
[2020-12-02 07:08] LABS: ALT <6 U/L (4-49); AST 29 U/L (17-59); African American GFR (CKD) >90 (>60 ml/min/1.73 sqM); Albumin 2.8 g/dL (3.5-5.0); Alkaline Phosphatase 71 U/L (38-126); Anion Gap 7 mmol/L; Blood Urea Nitrogen 9 mg/dL (9-20); Calcium 8.4 mg/dL (8.4-10.2); Carbon Dioxide 27 mmol/L (22-30); Chloride 102 mmol/L (98-107); Glucose 109 mg/dL (74-99); Non-African American GFR(CKD) >90 (>60 ml/min/1.73 sqM); Sodium 136 mmol/L (137-145); Total Bilirubin 0.6 mg/dL (0.2-1.3); Total Protein 5.3 g/dL (6.3-8.2)
[2020-12-02 07:16] LABS: Potassium 2.7 mmol/L (3.5-5.1)
[2020-12-02] MEDS ORDERED: Potassium Replacement Protocol 1 EACH MISC MISCELLANE PRN (07:23)
[2020-12-02] MEDS: levETIRAcetam IV 750 MG in SODIUM CHLORIDE 0.9% 100 ML IVPB SCH (07:58)
[2020-12-02] MEDS: ASPIRIN 81 MG PO SCH (07:58)
[2020-12-02] MEDS: CHOLECALCIFEROL 25 MCG (1000 IU) TABLET PO SCH (07:58)
[2020-12-02] MEDS: COLCHICINE 0.6 MG EACH PO SCH ×2 (07:58→21:43)
[2020-12-02] MEDS: TIMOLOL 0.5% OPHTH DROPS 5 ML BTL LEFT EYE SCH ×2 (07:59→22:47)
[2020-12-02] MEDS: ESCITALOPRAM 10 MG TAB PO SCH (07:59)
[2020-12-02] MEDS: TAMSULOSIN 0.4 MG CAP.ER.24H PO SCH (07:59)
[2020-12-02] MEDS: EZETIMIBE 10 MG TAB PO SCH (07:59)
[2020-12-02] MEDS: CARBIDOPA-LEVODOPA 25-100 MG 1 EACH TAB PO SCH ×3 (07:59→21:42)
[2020-12-02] MEDS: POTASSIUM CHLORIDE ER 20 MEQ TAB.ER PO SCH ×3 (07:59→11:16)
[2020-12-02] MEDS: FLUDROCORTISONE 0.1 MG TAB PO SCH (07:59)
[2020-12-02] MEDS: FERROUS SULFATE 325 MG TAB PO SCH (07:59)
[2020-12-02] MEDS: BRIMONIDINE TARTRATE 0.2% DROPS 5 ML BTL LEFT EYE SCH ×2 (08:00→21:44)
[2020-12-02] MEDS: SODIUM CHLORIDE 0.9% 1,000 ML IV SCH ×2 (08:10→21:44)
[2020-12-02] MEDS ORDERED: LOSARTAN 50 MG TAB PO SCH (09:00)
--- NOTE | 2020-12-02 11:05 | P.DS ---
Providers Date of admission: 11/26/20 21:59 Expected date of discharge: 12/02/20 Attending physician: Nida Landin MD Consults: 11/26/20 21:58 Consult Physician Urgent Consulting Provider: Xi Baez Consult Reason/Comments: cva Do you want consulting provider notified?: Yes Primary care physician: [facility] Course: History of Present Illness This is an 85-year-old male patient of Dr. 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 He was readmitted from April 28 through May 06, 2020, at which time he was seen by multiple consultants including neurology for seizure activity and adjustments were made on Keppra and patient was started on Vimpat. He was also treated for acute catheter associated urinary tract infection, urinary retention, hematuria and was seen by Dr. Gaspar. Patient was seen by Dr. Reina for hyponatremia with SIADH. Patient was stabilized and discharged back to [facility]. Patient was seen at [facility] for seizure activity or an unresponsive episodes were side effect of the Keppra and the only wanted him on Vimpat but patient was somehow started also on Briviact at that time. He was again hospitalized at [facility] for unresponsive episode and was transferred to [facility] as was advised by neurologist, Dr. Pedroza. Patient had an unresponsive episode of 20 minutes and was only responding to pain and then return to baseline. Patient apparently is no longer at [place] for subacute rehab. Patient apparently was last seen at 4 PM and had been sleeping all day and mental status was found to be altered and patient was unable to provide any information. Patient was brought into [facility] emergency center for evaluation. He was afebrile, heart rate 76, initial blood pressure 169/114, pulse ox 93%. EKG was in normal sinus rhythm with LVH. CAT scan of the brain showed no acute process. Mild to moderate atrophy. Moderate to severe chronic small vessel ischemic redemonstrated. No change from previous. Chest x-ray shows chronic changes and cardiomegaly without acute process. WBC 6.3, hemoglobin 12.6. INR 1.3. Sodium 133 otherwise electrolytes and renal function normal. Blood sugar was 110. Liver function tests normal. Troponin negative. Carotid virus PCR not detected. Triglycerides 96, cholesterol 206, LDL 122, HDL 65. Patient is minimally responsive and only open eyes to verbal stimuli. He is unable to follow any commands. Patient is currently nothing by mouth and Keppra will be transitioned to IV piggyback, consult with neurology, PT OT and speech therapies., 11/28: MRI of the brain revealed stable, chronic small vessel ischemic changes, age-related atrophy. EEG is abnormal suggestive of underlying cerebral dysfunction and may be related to structural abnormality or may be post ictal effect, sharp waves in the left parietal region suggestive underlying cortical irritability and tendency for seizures. Patient has been afebrile, heart rate 82, blood pressure 153/89, pulse ox 94% on room air. Patient has been seen by neurology with recommendations for aspirin 300 mg rectally, increase Keppra to 1000 mg twice daily and started Vimpat IV 100 mg twice daily. Patient is in bed with his eyes open, more awake today but is unable to follow any commands. Later in the day, nurse called the patient had improvement of his mental status and speech come back to evaluate swallow. If patient is able to swallow, we will resume his home medications, if not we will have to start heparin drip to replace Xarelto. 11/29: Patient did pass swallow evaluation and started on home oral medications including Xarelto. Patient is more awake and alert today. He is saying a few words such as I want a walker. He is able to follow a few simple commands but is slow to respond. He is able to move all 4 extremities. He is noted to have a tremor. Neurology has increased Vimpat to 150 mg twice a day and Keppra to 1500 mg twice a day. EEG reveals significant left hemispheric focal slowing with some left parietal sharp waves. Neurology has also recommended aspirin 81 mg with Xarelto. He has been afebrile, heart rate 70, blood pressure 156/75 and pulse ox 93% on room air. 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 Sodium 136, otherwise electrolytes normal. BUN 27 and creatinine 0.75. Urinalysis revealed leukoesterase large, WBC 167 and WBC clumps many. Urine culture is in progress. Patient will be started on ceftriaxone. Discharge plan is for [place] most likely on Wednesday. 11/30 Patient examined bedside continues to have difficulty with speech but is a ble to communicate more. He does complain of significant wrist pain and tenderness involving the right upper extremity. Patient also noted to have swelling involving the wrist and the hand. No IV line was obtained in the right upper extremity. No overlying erythema or warmth noted. Patient does not feel difficulties in made any improvement. Repeat EEG was obtained yesterday that suggests suppressed background involving the left hemispheric region but does does slowing has resolved but does have effect of post ictal. No epileptiform activity was seen. Ultrasound of the upper extremity to be obtained. Cold compression and upper extremity need to be elevated. Vimpat reduced to 150 twice a day and Keppra continued at 1000 twice a day. Vital suggest increased SBP will increase losartan to 25 mg daily. 12/01 patient states confused. His speech is clear able to comprehend and follow commands. Patient does have visual hallucination and sees his dog is in the room. Patient thinks he is in [place]. Patient does have urinary tract infection is getting ceftriaxone. Keppra dose reduced to 750 twice a day per neurology with plan to taper the dose if continues to his remained confused. Patient's inquiring about inpatient rehab as she would like to visit him every day at the rehab. Continue ceftriaxone for UTI. Continue colchicine for wrist inflammation. Seizure medications per neurology. Vitals assess patient's blood pressure is 190/95 oxygen saturation 95% on room air. Losartan increased to 50 mg by mouth daily due to ongoing blood pressure. Labs ordered for t omorrow 12/02: Urine culture has been finalized with E. coli, pansensitive except for luis quinolones. He has been on Rocephin which will be transitioned to oral Ceftin. He has been afebrile, heart rate 62, blood pressure 167/80, pulse ox 93% on room air. Repeat blood work reveals hemoglobin 10.9. Potassium 2.7 and has been replaced. Patient's losartan was increased yesterday to 50 mg daily the patient continued to run extremely high through the night and losartan will again be increased. Neurology is following and will address is an epileptic medications. Patient's is at the bedside and is requesting inpatient rehab. Consult will be placed with Dr. Lui. She does not want the patient to go to subacute rehab due to lack of visitation. Patient is awake and alert. Oriented to self, place and time. Is able to follow commands. No aphasia or neglect. Doubt the patient would be appropriate for inpatient rehab. If patient is not accepted at inpatient rehab, family is planning for [facility]. If arrangements can be completed today, patient will be discharged to rehab. 12/03: Patient does not qualify for inpatient rehab. Patient's does not want him to go to a custodial. She is making arrangements for help at home as well as home care. Patient's mental status is currently stable. He has been afebrile, heart rate in the 60s, blood pressure 179/92 blood pressure readings have been high despite changes in medications which will again be just adjusted. Pulse ox 96% on room air. DISCHARGE DIAGNOSES 1. Metabolic encephalopathy with right sided weakness most likely secondary to epilepsy with focal onset seizures. 2. 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 Byrd. 3. History of Bilateral pulmonary embolism originating from DVT right leg. 4. Hypertension. 5. Hyperlipidemia. 6. 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 7. Coronary artery disease status post angioplasty and stent placement. 8. Benign prostatic hypertrophy with history of urinary retention that required chronic Olivo catheter. 9. Restless leg syndrome. 10. Parkinson disease on sinemet 11. Autonomic hypotension 12. Acute UTI, completed antibiotics Discharge plan Home with [facility] Impression and plan of care have been directed as dictated by the signing physician. Suly Gallo nurse practitioner acting as scribe for signing physician. Patient Condition at Discharge: Good Plan - Discharge Summary Discharge Rx Participant: No New Discharge Prescriptions: New Aspirin 81 mg PO DAILY chew Melatonin 3 mg PO HS tablet Losartan [Cozaar] 100 mg PO DAILY #30 tab Lacosamide [Vimpat] 150 mg PO BID 3 Days #6 tab Colchicine [Colcrys] 0.6 mg PO BID #60 tablet hydrALAZINE HCL [Apresoline] 50 mg PO BID #60 tab Continue Montelukast [Singulair] 10 mg PO HS@2100 Ferrous Sulfate [Iron (65 MG Elemental)] 325 mg PO DAILY Rosuvastatin Calcium 20 mg PO HS@2000 Ezetimibe [Zetia] 10 mg PO DAILY Latanoprost/Pf [Latanoprost 0.005% Eye Drop] 1 drop BOTH EYES HS@2099 Tamsulosin [Flomax] 0.4 mg PO DAILY Rivaroxaban [Xarelto] 20 mg PO DAILY@170 Timolol [Betimol 0.5% Ophth Soln] 1 drop LEFT EYE BID Brimonidine Tartrate [Alphagan P 0.2% Ophth Soln] 1 drops LEFT EYE BID Carbidopa-Levodopa 25-100 mg [Sinemet 25-100 mg] 1 tab PO TID Pramipexole [Mirapex] 1 mg PO DAILY@1699,1999 Cholecalciferol [Vitamin D3 (25 Mcg = 1000 Iu)] 125 mcg PO DAILY Carvedilol [Coreg] 12.5 mg PO BID Escitalopram [Lexapro] 10 mg PO DAILY Butalbit/Acetamin/Caff/Codeine [Fioricet-Cod 50-311-54-30 Cap] 1 - 2 cap PO Q6H PRN #12 cap PRN Reason: Migraine Headache Changed levETIRAcetam [Keppra] 750 mg PO BID #0 Fludrocortisone [Florinef] 0.1 mg PO DAILY PRN #0 PRN Reason: Low BP Discontinued levETIRAcetam [Keppra] 500 mg PO DAILY Losartan [Cozaar] 12.5 mg PO DAILY Discharge Medication List Montelukast [Singulair] 10 mg PO HS@209909/19/15 [History] Ferrous Sulfate [Iron (65 MG Elemental)] 325 mg PO DAILY 07/14/18 [History] Ezetimibe [Zetia] 10 mg PO DAILY 04/16/20 [History] Latanoprost/Pf [Latanoprost 0.005% Eye Drop] 1 drop BOTH EYES HS@209904/16/20 [History] Rosuvastatin Calcium 20 mg PO HS@199904/16/20 [History] Tamsulosin [Flomax] 0.4 mg PO DAILY 04/28/20 [History] Rivaroxaban [Xarelto] 20 mg PO DAILY@17005/19/20 [History] Brimonidine Tartrate [Alphagan P 0.2% Ophth Soln] 1 drops LEFT EYE BID 11/26/20 [History] Carbidopa-Levodopa 25-100 mg [Sinemet 25-100 mg] 1 tab PO TID 11/26/20 [History] Carvedilol [Coreg] 12.5 mg PO BID 11/26/20 [History] Cholecalciferol [Vitamin D3 (25 Mcg = 1000 Iu)] 125 mcg PO DAILY 11/26/20 [History] Escitalopram [Lexapro] 10 mg PO DAILY 11/26/20 [History] Pramipexole [Mirapex] 1 mg PO DAILY@1700,2000 11/26/20 [History] Timolol [Betimol 0.5% Ophth Soln] 1 drop LEFT EYE BID 11/26/20 [History] Aspirin 81 mg PO DAILY chew 12/02/20 [Rx] Butalbit/Acetamin/Caff/Codeine [Fioricet-Cod 80-649-86-30 Cap] 1 - 2 cap PO Q6H PRN #12 cap 12/02/20 [Rx] Colchicine [Colcrys] 0.6 mg PO BID #60 tablet 12/02/20 [Rx] Lacosamide [Vimpat] 150 mg PO BID 3 Days #6 tab 12/02/20 [Rx] Losartan [Cozaar] 100 mg PO DAILY #30 tab 12/02/20 [Rx] Melatonin 3 mg PO HS tablet 12/02/20 [Rx] levETIRAcetam [Keppra] 750 mg PO BID #0 12/02/20 [Rx] Fludrocortisone [Florinef] 0.1 mg PO DAILY PRN #0 12/03/20 [Rx] hydrALAZINE HCL [Apresoline] 50 mg PO BID #60 tab 12/03/20 [Rx] Follow up Appointment(s)/Referral(s): [facility], [NON-STAFF] - Louis Lawson MD [Primary Care Provider] - 12/10/20 10:30 am (WITH PRAMOD GARCIA WEDNESDAY) Olman Byrd DO [STAFF PHYSICIAN] - 12/05/20 11:30 am (WEDNESDAY) Patient Instructions/Handouts: New-Onset Seizure in Adults (DC) Discharge Disposition: HOME WITH HOME HEALTH SERVICES
[2020-12-02] MEDS ORDERED: POTASSIUM CHLORIDE ER 20 MEQ TAB.ER PO STA (12:25)
[2020-12-02] MEDS ORDERED: LOSARTAN 50 MG TAB PO STA (12:26)
--- NOTE | 2020-12-02 13:39 | P.PN ---
Subjective Progress Note Date: 12/02/20 Patient was seen at bedside and that it is my first day seeing this patient. He was seen by Dr. Hernandez and Dr. Cartwright for neurological workup for this admission and please refer to their note for further details. The patient nurse the patient has not had any further episodes of loss of consciousness or confusion. Objective - Vital Signs Vital signs: Vital Signs Temp 98.0 F 12/02/20 11:36 Pulse 64 12/02/20 13:18 Resp 16 12/02/20 13:18 BP 163/90 12/02/20 11:36 Pulse Ox 95 12/02/20 11:36 Intake & Output 12/01/20 12/02/20 12/02/20 18:59 06:59 18:59 Intake Total 100 480 Output Total 60 Balance 100 -60 480 Weight 92.5 kg Intake: Oral 100 480 Output: Urine 60 Other: Voiding Method Diaper Diaper Diaper # Voids 4 3 # Bowel Movements 3 3 - Exam GENERAL: The patient is lying in bed and is not in acute distress. NEUROLOGICAL: Higher mental function: The patient is awake, alert, oriented to self, place and time. Patient is following commands. No aphasia and no neglect. Cranial nerves: The pupils are round, equal and reactive to light and accommodation. Visual leon are full to confrontation throughout. Extraocular movement is intact no nystagmus is noted. Facial sensation is normal to touch throughout. The facial strength mild left nasolabial flattening (old). Tongue is midline and moved [id number] without any difficulty. No dysarthria is noted. Motor: Gait is deferred. The strength is 5 over 5 throughout. Normal tone and bulk. Sensation: Sensation is normal to touch throughout. Plantars are downgoing bilaterally. - Labs CBC & Chem 7: 12/02/20 06:11 12/02/20 12:17 Labs: Abnormal Lab Results - Last 24 Hours (Table) 12/02/20 12/02/20 12/02/20 Range/Units 06:11 06:11 12:17 RBC 3.37 L (4.30-5.90) m/uL Hgb 10.9 L (13.0-17.5) gm/dL Hct 31.4 L (39.0-53.0) % Lymphocytes # 0.7 L (1.0-4.8) k/uL Sodium 136 L (137-145) mmol/L Potassium 2.7 L* 3.1 L (3.5-5.1) mmol/L Creatinine 0.46 L (0.66-1.25) mg/dL Glucose 109 H (74-99) mg/dL Total Protein 5.3 L (6.3-8.2) g/dL Albumin 2.8 L (3.5-5.0) g/dL Microbiology - Last 24 Hours (Table) 11/28/20 21:40 Urine Culture - Final Urine,Voided Escherichia coli Assessment and Plan Assessment: 1. Toxic encephalopathy secondary to urinary tract infection---improved 2. History of seizure disorder, presenting to the emergency Department with mental status changes following recent increase in dosage of levetiracetam and UTI Possible confusion and sedation secondary to medication dosage versus UTI versus a combination 3. Reported worsening 2 nights ago, with hallucinations and confusion perhaps secondary to UTI and hospitalization 4. History of Parkinson's disease, and/or multiple system atrophy 5. Reported history of recurrent urinary tract infections Plan: 1. Will continue current antiepileptic medication doses (currently on Keppra 75 0mg 1 tab bid and Vimpat 150mg 1 tab bid). 2. Continue melatonin 3 mg at bedtime, to help with sleep. 3. Continue antibiotic for UTI and hallucinations should resolve as infection is treated. If hallucinations become more severe consider the use of Seroquel The plan was discussed with the patient's in detail via phone. I notified to her that the he seems stable currently since seeing him for the first time during this admission and I notified her that I do not want to change his medic ation (anti-epileptic). I notified her that for the patient to follow-up with his neurologist(Dr. Byrd) as an outpatient and if the she has any concerns of him being on the high-dose antiepileptic the neck could be modified as an outpatient but currently seems stable. Patient needs to follow-up with a neurologist as outpatient within 1-2 weeks. The plan was also discussed with the patient's primary team. There is no further workup needed at this time. Dat Pedroza MD Neuro-Hospitalist Time with Patient: Less than 30
--- NOTE | 2020-12-02 14:15 | P.PN ---
Subjective Progress Note Date: 12/02/20 History of Present Illness This is an 85-year-old male patient of Dr. 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 He was readmitted from April 28 through May 06, 2020, at which time he was seen by multiple consultants including neurology for seizure activity and adjustments were made on Keppra and patient was started on Vimpat. He was also treated for acute catheter associated urinary tract infection, urinary retention, hematuria and was seen by Dr. Gaspar. Patient was seen by Dr. Reina for hyponatremia with SIADH. Patient was stabilized and discharged back to [facility]. Patient was seen at [facility] for seizure activity or an unresponsive episodes were side effect of the Keppra and the only wanted him on Vimpat but patient was somehow started also on Briviact at that time. He was again hospitalized at [facility] for unresponsive episode and was transferred to [facility] as was advised by neurologist, Dr. Pedroza. Patient had an unresponsive episode of 20 minutes and was only responding to pain and then return to baseline. Patient apparently is no longer at [place] for subacute rehab. Patient apparently was last seen at 4 PM and had been sleeping all day and mental status was found to be altered and patient was unable to provide any information. Patient was brought into [facility] emergency center for evaluation. He was afebrile, heart rate 76, initial blood pressure 169/114, pulse ox 93%. EKG was in normal sinus rhythm with LVH. CAT scan of the brain showed no acute process. Mild to moderate atrophy. Moderate to severe chronic small vessel ischemic redemonstrated. No change from previous. Chest x-ray shows chronic changes and cardiomegaly without acute process. WBC 6.3, hemoglobin 12.6. INR 1.3. Sodium 133 otherwise electrolytes and renal function normal. Blood sugar was 110. Liver function tests normal. Troponin negative. Carotid virus PCR not detected. Triglycerides 96, cholesterol 206, LDL 122, HDL 65. Patient is minimally responsive and only open eyes to verbal stimuli. He is unable to follow any commands. Patient is currently nothing by mouth and Keppra will be transitioned to IV piggyback, consult with neurology, PT OT and speech therapies., 11/28: MRI of the brain revealed stable, chronic small vessel ischemic changes, age-related atrophy. EEG is abnormal suggestive of underlying cerebral dysfunction and may be related to structural abnormality or may be post ictal effect, sharp waves in the left parietal region suggestive underlying cortical irritability and tendency for seizures. Patient has been afebrile, heart rate 82, blood pressure 153/89, pulse ox 94% on room air. Patient has been seen by neurology with recommendations for aspirin 300 mg rectally, increase Keppra to 1000 mg twice daily and started Vimpat IV 100 mg twice daily. Patient is in bed with his eyes open, more awake today but is unable to follow any commands. Later in the day, nurse called the patient had improvement of his mental status and speech come back to evaluate swallow. If patient is able to swallow, we will resume his home medications, if not we will have to start heparin drip to replace Xarelto. 11/29: Patient did pass swallow evaluation and started on home oral medications including Xarelto. Patient is more awake and alert today. He is saying a few words such as I want a walker. He is able to follow a few simple commands but is slow to respond. He is able to move all 4 extremities. He is noted to have a tremor. Neurology has increased Vimpat to 150 mg twice a day and Keppra to 1500 mg twice a day. EEG reveals significant left hemispheric focal slowing with some left parietal sharp waves. Neurology has also recommended aspirin 81 mg with Xarelto. He has been afebrile, heart rate 70, blood pressure 156/75 and pulse ox 93% on room air. executive associate is sinus rhythm with PVCs. Sodium 136, otherwise electrolytes normal. BUN 27 and creatinine 0.75. Urinalysis revealed leukoesterase large, WBC 167 and WBC clumps many. Urine culture is in progress. Patient will be started on ceftriaxone. Discharge plan is for most likely on Wednesday. 11/30 Patient examined bedside continues to have difficulty with speech but is able to communicate more. He does complain of significant wrist pain and tenderness involving the right upper extremity. Patient also noted to have swelling involving the wrist and the hand. No IV line was obtained in the right upper extremity. No overlying erythema or warmth noted. Patient does not feel difficulties in made any improvement. Repeat EEG was obtained yesterday that suggests suppressed background involving the left hemispheric region but does does slowing has resolved but does have effect of post ictal. No epileptiform activity was seen. Ultrasound of the upper extremity to be obtained. Cold compression and upper extremity need to be elevated. Vimpat reduced to 150 twice a day and Keppra continued at 1000 twice a day. Vital suggest increased SBP will increase losartan to 25 mg daily. 12/01 patient states confused. His speech is clear able to comprehend and follow commands. Patient does have visual hallucination and sees his dog is in the room. Patient thinks he is in [place]. Patient does have urinary tract infection is getting ceftriaxone. Keppra dose reduced to 750 twice a day per neurology with plan to taper the dose if continues to his remained confused. Patient's inquiring about inpatient rehab as she would like to visit him every day at the rehab. Continue ceftriaxone for UTI. Continue colchicine for wrist inflammation. Seizure medications per neurology. Vitals assess patient's blood pressure is 190/95 oxygen saturation 95% on room air. Losartan increased to 50 mg by mouth daily due to ongoing blood pressure. Labs ordered for tomorrow 12/02: Urine culture has been finalized with E. coli, pansensitive except for luis quinolones. He has been on Rocephin which will be transitioned to oral Ceftin. He has been afebrile, heart rate 62, blood pressure 167/80, pulse ox 93% on room air. Repeat blood work reveals hemoglobin 10.9. Potassium 2.7 and has been replaced. Patient's losartan was increased yesterday to 50 mg daily the patient continued to run extremely high through the night and losartan will again be increased. Neurology is following and will address is an epileptic medications. Patient's is at the bedside and is requesting inpatient [facility]. Consult will be placed with Dr. Lui. She does not want the patient to go to subacute rehab due to lack of visitation. Patient is awake and alert. Oriented to self, place and time. Is able to follow commands. No aphasia or neglect. Doubt the patient would be appropriate for inpatient rehab. If patient is not accepted at inpatient rehab, family is planning for [facility]. If arrangements can be completed today, patient will be discharged to rehab. Zackeryppra and Vimpat dosing clarified with Dr. Pedroza. Review of Systems Review Of Systems: Constitutional: No fever, no chills, no night sweats. No weight change. No weakness, fatigue or lethargy. No daytime sleepiness. EENT: No headache. No blurred vision or double vision, no loss of vision. No loss of Hearing, no ringing in the ears, no dizziness. No nasal drainage or congestion. No epistaxis. No sore throat. Lungs: No shortness of breath, cough, no sputum production. No wheezing. Cardiovascular: No chest pain, no lower extremity edema. No palpitations. No paroxysmal nocturnal dyspnea. No orthopnea. No lightheadedness or dizziness. No syncopal episodes. Abdominal: No abdominal pain. No nausea, vomiting. No diarrhea. No constipation. No bloody or tarry stools.. No loss of appetite. Genitourinary: No dysuria, increased frequency, urgency. No urinary retention. Musculoskeletal: No myalgias. No muscle weakness, no gait dysfunction, no frequent falls. No back pain. No neck pain. Integumentary: No wounds, no lesions. No rash or pruritus. No unusual bruising. No change in hair or nails. Neurologic: No aphasia. No facial droop. No change in mentation. No head injury. No headache. No paralysis. No paresthesia. Psychiatric: No depression. No anxiety. No mood swings. Endocrine: No abnormal blood sugars. No weight change. No excessive sweating or thirst. No cold intolerance. Physical Examination Gen: This is an 85-year-old male. He is resting in bed and appears comfortable. HEENT: Head is atraumatic, normocephalic. Pupils equal, round. Sclerae is anicteric. Weight NECK: Supple. No JVD. No lymphadenopathy. No thyromegaly. LUNGS: Clear to auscultation. No wheezes or rhonchi. No intercostal retractions. HEART: Regular rate and rhythm. Systolic ejection murmur. ABDOMEN: Soft. Bowel sounds are present. No masses. No tenderness. EXTREMITIES: No pedal edema. No calf tenderness. NEUROLOGICAL: Patient is awake and alert and oriented to person place and time. Able to follow commands. No aphasia or neglect. He is able to move all 4 extremities. Assessment and Plan 1. Metabolic encephalopathy most likely secondary to epilepsy with focal onset seizures. Consult with neurology. Patient is currently nothing by mouth, PT, OT, speech therapy. Continue aspirin 81 mg daily, Xarelto resumed. 2. Seizure disorder, follows with Dr. Byrd. Keppra 250 mg twice daily and VimPat 150 mg twice daily and both have been transitioned to oral. Neurology consult appreciated. 3. History of Bilateral pulmonary embolism originating from DVT right leg. Continue Xarelto. 4. Hypertension. Continue Coreg 12.5 mg twice daily, losartan increased to 100 mg daily. 5. Hyperlipidemia. Continue Lipitor 40 mg daily, Zetia 10 mg daily. 6. History of CVA. 7. Coronary artery disease status post angioplasty and stent placement. Continue Lipitor. 8. Benign prostatic hypertrophy with history of urinary retention that required chronic Olivo catheter. Continue Flomax 0.4 mg twice daily. 9. Restless leg syndrome. On Mirapex 1 mg twice daily. 10. GI prophylaxis. Protonix. 11. DVT prophylaxis. Will resume Xarelto. CODE STATUS: Full code Discharge plan Possible rehab on Wednesday Impression and plan of care have been directed as dictated by the signing physician. Suly Gallo nurse practitioner acting as scribe for signing physici an. Objective - Vital Signs Vital signs: Vital Signs Temp 98.0 F 12/02/20 11:36 Pulse 64 12/02/20 13:18 Resp 16 12/02/20 13:18 BP 163/90 12/02/20 11:36 Pulse Ox 95 12/02/20 11:36 Intake & Output 12/01/20 12/02/20 12/02/20 18:59 06:59 18:59 Intake Total 100 660 Output Total 60 Balance 100 -60 660 Weight 92.5 kg Intake: Oral 100 660 Output: Urine 60 Other: Voiding Method Diaper Diaper Diaper # Voids 4 3 # Bowel Movements 3 3 - Labs CBC & Chem 7: 12/02/20 06:11 12/02/20 12:17 Labs: Abnormal Lab Results - Last 24 Hours (Table) 12/02/20 12/02/20 12/02/20 Range/Units 06:11 06:11 12:17 RBC 3.37 L (4.30-5.90) m/uL Hgb 10.9 L (13.0-17.5) gm/dL Hct 31.4 L (39.0-53.0) % Lymphocytes # 0.7 L (1.0-4.8) k/uL Sodium 136 L (137-145) mmol/L Potassium 2.7 L* 3.1 L (3.5-5.1) mmol/L Creatinine 0.46 L (0.66-1.25) mg/dL Glucose 109 H (74-99) mg/dL Total Protein 5.3 L (6.3-8.2) g/dL Albumin 2.8 L (3.5-5.0) g/dL Microbiology - Last 24 Hours (Table) 11/28/20 21:40 Urine Culture - Final Urine,Voided Escherichia coli
--- NOTE | 2020-12-02 14:41 | P.CONS ---
History of Present Illness - Chief Complaint Gait disturbance - History of Present Illness I had the opportunity to see patient for inpatient rehab consultation with regard to gait disturbance. Patient admitted to [facility] November 26 with mental status change. Seen by neurology, Dr. Sahni who notes right-sided weakness, stroke versus Zach's paralysis. Chest x-ray demonstrates cardiomegaly and chronic change. Head CT demonstrates age-related change, small vessel moderate to severe disease. Angiogram CT less than 50% stenosis. Brain MRI with chronic change and cerebral atrophy. Right wrist x-ray with osteoarthritis/osteopenia and scapholunate dissociation. Venous Doppler upper extremities normal. His seen therapies. PT reports two-person maximal assistance for bed mobility two- person moderate assistance to sit and stand. OT reports two-person total assistance for upper and lower dressing and bathing as well as toileting and 2 person maximal assistance functional mobility. Speech therapy assessed swallow notes requires verbal cueing but otherwise level III diet with chopped and thin liquid. No PT and OT document ability tolerate up to 10 minutes. Previous functional history as elicited from : 85-year-old left-handed white male who is lives and one for home with . Both are retired. does cooking, laundry, driving and physically assist patient with sponge bath, dressing and frequently with wheelchair mobility. They have been using a mechanical lift for transfers more recently. PMD Dr. Lawson. Denies tobacco or alcohol. Review of Systems Review of systems: ENT: Denies sneezes or discharge. Eyes: Denies discharge or photophobia. Cardiac: Denies chest pain or palpitation. Pulmonary: Denies cough or shortness of breath. Gastrointestinal: Denies nausea, emesis, constipation, diarrhea. Genitourinary: Denies discharge or frequency. Musculoskeletal: Denies muscle or bone aches. Neurologic: Weakness on admission of which the was unsure. describes previous strokes and TIAs remain involved in fact both sides. Endocrine: Denies shakes or sweats. Oncology: Denies cancers. Dermatologic: Denies rash, itching, pruritus. ALLERGY/immunology: Denies sneezes, rashes. 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, multiple TIAs, parkinson's disease, neuralgia, neuropathy bilateral hands, legs and feet, thoracic spondylosis, prostrate cancer with surgery/chemo and radiation, UTIs, kidney stones, L eye glaucoma, PVD/bilateral lower extremity edema, caratid stenosis, aemia, bronchitis, lower GI bleed History of Any Multi-Drug Resistant Organisms: None Reported Past Surgical History: Adenoidectomy, Back Surgery, Heart Catheterization With Stent, Hernia Repair, Joint Replacement, Orthopedic Surgery, Prostate Surgery, Tonsillectomy Additional Past Surgical History / Comment(s): PCI with stent in 2012, prostate biopsies, laser vaporization of prostrate, bilateral inquinal hernia repairs, EGD/colonoscopy, supraorbital percutaneous nerve stimulator trial, epidural injections, low back surgery, R foot hammer toe surgery, bilateral total knee r eplacements, bilateral cataract removals/lens implants, hemorrhoidectomy, R side of head vein biopsy, left hip arthroplasty 2 weeks ago Past Anesthesia/Blood Transfusion Reactions: No Reported Reaction Additional Past Anesthesia/Blood Transfusion Reaction / Comm: Pt has received blood in past without reaction. Date of Last Stent Placement:: 2012 Past Psychological History: No Psychological Hx Reported Additional Psychological History / Comment(s): Pt resides with his spouse. He uses a walker to ambulate. Smoking Status: Never smoker Past Alcohol Use History: None Reported Past Drug Use History: None Reported - Past Family History Brother(s) Family Medical History: No Reported History Additional Family Medical History / Comment(s): Patient has 3 brothers with no major medical problems. Sister(s) Family Medical History: Hypertension Additional Family Medical History / Comment(s): Patient has 3 sisters that are all alive. 2 have high blood pressure. One has diabetes and stroke and is 81 years old. And all have history of tremors. Son(s) Family Medical History: No Reported History Additional Family Medical History / Comment(s): Patient has 3 sons and one daughter with no major medical problems. Father Family Medical History: Myocardial Infarction (CA) Additional Family Medical History / Comment(s): Father at age 73 with hist ory of Parkinson's disease, bowel cancer, bone cancer. Mother Family Medical History: No Reported History, Myocardial Infarction ([place]) Additional Family Medical History / Comment(s): Mother at age 85 with history of hypertension and dementia. Medications and Allergies Home Medications Medication Instructions Recorded Confirmed Type Montelukast [Singulair] 10 mg PO HS@209909/19/15 11/26/20 History Ferrous Sulfate [Iron (65 MG 325 mg PO DAILY 07/14/18 11/26/20 History Elemental)] Ezetimibe [Zetia] 10 mg PO DAILY 04/16/20 11/26/20 History Latanoprost/Pf [Latanoprost 0.005% 1 drop BOTH EYES HS@209904/16/20 11/26/20 History Eye Drop] Rosuvastatin Calcium 20 mg PO HS@199904/16/20 11/26/20 History Tamsulosin [Flomax] 0.4 mg PO DAILY 04/28/20 11/26/20 History Rivaroxaban [Xarelto] 20 mg PO DAILY@169905/19/20 11/26/20 History Brimonidine Tartrate [Alphagan P 1 drops LEFT EYE BID 11/26/20 11/26/20 History 0.2% Ophth Soln] Carbidopa-Levodopa 25-100 mg 1 tab PO TID 11/26/20 11/26/20 History [Sinemet 25-100 mg] Carvedilol [Coreg] 12.5 mg PO BID 11/26/20 11/26/20 History Cholecalciferol [Vitamin D3 (25 125 mcg PO DAILY 11/26/20 11/26/20 History Mcg = 1000 Iu)] Escitalopram [Lexapro] 10 mg PO DAILY 11/26/20 11/26/20 History Fludrocortisone [Florinef] 0.1 mg PO DAILY 11/26/20 11/26/20 History Pramipexole [Mirapex] 1 mg PO DAILY@11/26/20 11/26/20 History Timolol [Betimol 0.5% Ophth Soln] 1 drop LEFT EYE BID 11/26/20 11/26/20 History Aspirin 81 mg PO DAILY chew 12/02/20 Rx Butalbit/Acetamin/Caff/Codeine 1 - 2 cap PO Q6H PRN #12 cap 12/02/20 Rx [Fioricet-Cod [id number] Cap] Colchicine [Colcrys] 0.6 mg PO BID each 12/02/20 Rx Lacosamide [Vimpat] 150 mg PO BID 3 Days #6 tab 12/02/20 Rx Losartan [Cozaar] 100 mg PO DAILY #30 tab 12/02/20 Rx Melatonin 3 mg PO HS tablet 12/02/20 Rx levETIRAcetam [Keppra] 750 mg PO BID #0 12/02/20 11/26/20 Rx Allergies Allergy/AdvReac Type Severity Reaction Status Date / Time metoclopramide [From Reglan] AdvReac SHAKES Verified 11/26/20 22:21 oxycodone HCl AdvReac Nausea & Verified 11/26/20 22:21 [From OxyContin] Vomiting Physical Exam Vitals: Vital Signs Temp Pulse Resp BP Pulse Ox 12/02/20 13:18 64 16 12/02/20 11:36 98.0 F 64 16 163/90 95 12/02/20 08:00 98.2 F 62 16 167/80 93 L 12/02/20 04:00 98.6 F 66 18 189/105 95 12/02/20 01:00 18 12/02/20 00:47 73 18 12/02/20 00:00 98.3 F 73 18 188/93 93 L 12/01/20 20:00 97.8 F 65 18 196/102 95 12/01/20 17:40 177/95 12/01/20 15:36 97.9 F 66 18 164/94 94 L Intake and Output 12/01/20 12/02/20 12/02/20 22:59 06:59 14:59 Intake Total 100 660 Output Total 60 Balance 40 660 Intake: Oral 100 660 Output: Urine 60 Other: Voiding Method Diaper Diaper Diaper # Voids 2 4 3 # Bowel Movements 3 Weight 92.5 kg Skin: Atrophic, intact. General: Overweight build and comfortable appearance. Head: Normocephalic, atraumatic. Eyes: Symmetric. Pupils equal round. Ears: Symmetric. Hearing within normal limits. Mouth: Clear. Neck: Supple. Carotid without bruit. Cardiac: Regular rate and rhythm. Lungs: Clear anteriorly and posteriorly. Abdomen: Soft active nontender. Extremities: Normal tone. Neurological: Mental status: Alert, cooperative, pleasant. Cranial nerves: Masked facial appearance. Motor: Active movement all 4 limbs. Demonstrates some weakness or synergy in the left arm more so than left leg. Sensation: Intact throughout. DTRs: Symmetric and equal throughout. Mobility: Requires physical assist for bed mobility. Results CBC & Chem 7: 12/02/20 06:11 12/02/20 12:17 Labs: Abnormal Lab Results - Last 24 Hours (Table) 12/02/20 12/02/20 12/02/20 Range/Units 06:11 06:11 12:17 RBC 3.37 L (4.30-5.90) m/uL Hgb 10.9 L (13.0-17.5) gm/dL Hct 31.4 L (39.0-53.0) % Lymphocytes # 0.7 L (1.0-4.8) k/uL Sodium 136 L (137-145) mmol/L Potassium 2.7 L* 3.1 L (3.5-5.1) mmol/L Creatinine 0.46 L (0.66-1.25) mg/dL Glucose 109 H (74-99) mg/dL Total Protein 5.3 L (6.3-8.2) g/dL Albumin 2.8 L (3.5-5.0) g/dL Assessment and Plan (1) Altered mental status Current Visit: No Status: Acute Code(s): R41.82 - ALTERED MENTAL STATUS, UNSPECIFIED SNOMED Code(s): 538010703 Plan: Impression: 1. Gait disturbance. 2. History of previous stroke and mini stroke with right and left hemiparesthesias. 3. Parkinson. 4. Coronary disease with history of angina. 5. Hypertension. 6. Dyslipidemia. 7. Sleep apnea. 8. Fibromyalgia. Comments and plan: At this time PT, OT, [employer] ongoing. Patient with limited endurance. At this time will discuss with patient and a slower paced program. Her reluctance for that is that she would prefer a facility that allows her to visit. in my exam I believe patient has more of a left hemiparesthesias. Patient admitted with right hemiparesthesias as diagnosed by neurologist which could be related to post seizure versus stroke versus mini stroke. Note neurologic picture also complicated by Parkinson.
[2020-12-02] MEDS: PRAMIPEXOLE 1 MG TAB PO SCH ×2 (17:00→21:44)
[2020-12-02] MEDS: RIVAROXABAN 20 MG TAB PO SCH (17:00)
[2020-12-02] MEDS: MONTELUKAST 10 MG TAB PO SCH (21:42)
[2020-12-02] MEDS: cloNIDine HCL 0.1 MG TAB PO PRN (21:42)
[2020-12-02] MEDS: ATORVASTATIN 40 MG TAB PO SCH (21:42)
[2020-12-02] MEDS: MELATONIN 3 MG TABLET PO SCH (21:42)
[2020-12-02] MEDS: LATANOPROST 0.005% OPHTH DROPS 2.5 ML BTL BOTH EYES SCH (21:44)
[2020-12-02] MEDS: LACOSAMIDE 150 MG TABLET PO SCH (21:49)
[2020-12-03] MEDS: SODIUM CHLORIDE 0.9% 1,000 ML IV SCH ×3 (05:52→20:36)
[2020-12-03] MEDS: carvediloL 12.5 MG TAB PO SCH ×2 (06:33→16:25)
[2020-12-03] MEDS: ESCITALOPRAM 10 MG TAB PO SCH (09:46)
[2020-12-03] MEDS: CHOLECALCIFEROL 25 MCG (1000 IU) TABLET PO SCH (09:46)
[2020-12-03] MEDS: CARBIDOPA-LEVODOPA 25-100 MG 1 EACH TAB PO SCH ×3 (09:46→20:30)
[2020-12-03] MEDS: ASPIRIN 81 MG PO SCH (09:46)
[2020-12-03] MEDS: LOSARTAN 50 MG TAB PO SCH (09:47)
[2020-12-03] MEDS: TAMSULOSIN 0.4 MG CAP.ER.24H PO SCH (09:47)
[2020-12-03] MEDS: EZETIMIBE 10 MG TAB PO SCH (09:47)
[2020-12-03] MEDS: COLCHICINE 0.6 MG EACH PO SCH ×2 (09:47→22:40)
[2020-12-03] MEDS: FERROUS SULFATE 325 MG TAB PO SCH (09:47)
[2020-12-03] MEDS: FLUDROCORTISONE 0.1 MG TAB PO SCH (09:48)
[2020-12-03] MEDS: cloNIDine HCL 0.1 MG TAB PO PRN ×4 (09:55→23:47)
[2020-12-03] MEDS: BRIMONIDINE TARTRATE 0.2% DROPS 5 ML BTL LEFT EYE SCH ×2 (09:55→20:30)
[2020-12-03] MEDS: ACETAMINOPHEN TAB 325 MG TAB PO PRN (09:57)
[2020-12-03] MEDS ORDERED: FLUDROCORTISONE 0.1 MG TAB PO PRN (10:41)
[2020-12-03 11:27] VITALS: BMI 31.4
[2020-12-03] MEDS: hydrALAZINE HCL 50 MG TAB PO SCH ×2 (11:43→20:31)
[2020-12-03] MEDS: TIMOLOL 0.5% OPHTH DROPS 5 ML BTL LEFT EYE SCH ×2 (11:43→20:30)
[2020-12-03] MEDS: LACOSAMIDE 150 MG TABLET PO SCH ×2 (11:43→20:31)
--- NOTE | 2020-12-03 14:36 | P.PN ---
Subjective Progress Note Date: 12/03/20 History of Present Illness This is an 85-year-old male patient of Dr. 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 He was readmitted from April 28 through May 06, 2020, at which time he was seen by multiple consultants including neurology for seizure activity and adjustments were made on Keppra and patient was started on Vimpat. He was also treated for acute catheter associated urinary tract infection, urinary retention, hematuria and was seen by Dr. Gaspar. Patient was seen by Dr. Reina for hyponatremia with SIADH. Patient was stabilized and discharged back to [facility]. Patient was seen at [facility] for seizure activity or an unresponsive episodes were side effect of the Keppra and the only wanted him on Vimpat but patient was somehow started also on Briviact at that time. He was again hospitalized at [facility] for unresponsive episode and was transferred to [facility] as was advised by neurologist, Dr. Pedroza. Patient had an unresponsive episode of 20 minutes and was only responding to pain and then return to baseline. Patient apparently is no longer at [facility] for subacute rehab. Patient apparently was last seen at 4 PM and had been sleeping all day and mental status was found to be altered and patient was unable to provide any information. Patient was brought into [facility] emergency center for evaluation. He was afebrile, heart rate 76, initial blood pressure 169/114, pulse ox 93%. EKG was in normal sinus rhythm with LVH. CAT scan of the brain showed no acute process. Mild to moderate atrophy. Moderate to severe chronic small vessel ischemic redemonstrated. No change from previous. Chest x-ray shows chronic changes and cardiomegaly without acute process. WBC 6.3, hemoglobin 12.6. INR 1.3. Sodium 133 otherwise electrolytes and renal function normal. Blood sugar was 110. Liver function tests normal. Troponin negative. Carotid virus PCR not detected. Triglycerides 96, cholesterol 206, LDL 122, HDL 65. Patient is minimally responsive and only open eyes to verbal stimuli. He is unable to follow any commands. Patient is currently nothing by mouth and Keppra will be transitioned to IV piggyback, consult with neurology, PT OT and speech therapies., 11/28: MRI of the brain revealed stable, chronic small vessel ischemic changes, age-related atrophy. EEG is abnormal suggestive of underlying cerebral dysfunction and may be related to structural abnormality or may be post ictal effect, sharp waves in the left parietal region suggestive underlying cortical irritability and tendency for seizures. Patient has been afebrile, heart rate 82, blood pressure 153/89, pulse ox 94% on room air. Patient has been seen by neurology with recommendations for aspirin 300 mg rectally, increase Keppra to 1000 mg twice daily and started Vimpat IV 100 mg twice daily. Patient is in bed with his eyes open, more awake today but is unable to follow any commands. Later in the day, nurse called the patient had improvement of his mental status and speech come back to evaluate swallow. If patient is able to swallow, we will resume his home medications, if not we will have to start heparin drip to replace Xarelto. 11/29: Patient did pass swallow evaluation and started on home oral medications including Xarelto. Patient is more awake and alert today. He is saying a few words such as I want a walker. He is able to follow a few simple commands but is slow to respond. He is able to move all 4 extremities. He is noted to have a tremor. Neurology has increased Vimpat to 150 mg twice a day and Keppra to 1500 mg twice a day. EEG reveals significant left hemispheric focal slowing with some left parietal sharp waves. Neurology has also recommended aspirin 81 mg with Xarelto. He has been afebrile, heart rate 70, blood pressure 156/75 and pulse ox 93% on room air. secured entrance monitor is sinus rhythm with PVCs. Sodium 136, otherwise electrolytes normal. BUN 27 and creatinine 0.75. Urinalysis revealed leukoesterase large, WBC 167 and WBC clumps many. Urine culture is in progress. Patient will be started on ceftriaxone. Discharge plan is for most likely on Wednesday. 11/30 Patient examined bedside continues to have difficulty with speech but is able to communicate more. He does complain of significant wrist pain and tenderness involving the right upper extremity. Patient also noted to have swelling involving the wrist and the hand. No IV line was obtained in the right upper extremity. No overlying erythema or warmth noted. Patient does not feel difficulties in made any improvement. Repeat EEG was obtained yesterday that suggests suppressed background involving the left hemispheric region but does does slowing has resolved but does have effect of post ictal. No epileptiform activity was seen. Ultrasound of the upper extremity to be obtained. Cold compression and upper extremity need to be elevated. Vimpat reduced to 150 twice a day and Keppra continued at 1000 twice a day. Vital suggest increased SBP will increase losartan to 25 mg daily. 12/01 patient states confused. His speech is clear able to comprehend and follow commands. Patient does have visual hallucination and sees his dog is in the room. Patient thinks he is in [place]. Patient does have urinary tract infection is getting ceftriaxone. Keppra dose reduced to 750 twice a day per neurology with plan to taper the dose if continues to his remained confused. Patient's inquiring about inpatient rehab as she would like to visit him every day at the rehab. Continue ceftriaxone for UTI. Continue colchicine for wrist inflammation. Seizure medications per neurology. Vitals assess patient's blood pressure is 190/95 oxygen saturation 95% on room air. Losartan increased to 50 mg by mouth daily due to ongoing blood pressure. Labs ordered for tomorrow 12/02: Urine culture has been finalized with E. coli, pansensitive except for luis quinolones. He has been on Rocephin which will be transitioned to oral Ceftin. He has been afebrile, heart rate 62, blood pressure 167/80, pulse ox 93% on room air. Repeat blood work reveals hemoglobin 10.9. Potassium 2.7 and has been replaced. Patient's losartan was increased yesterday to 50 mg daily the patient continued to run extremely high through the night and losartan will again be increased. Neurology is following and will address is an epileptic medications. Patient's is at the bedside and is requesting inpatient [facility]. Consult will be placed with Dr. Lui. She does not want the patient to go to subacute rehab due to lack of visitation. Patient is awake and alert. Oriented to self, place and time. Is able to follow commands. No aphasia or neglect. Doubt the patient would be appropriate for inpatient rehab. If patient is not accepted at inpatient rehab, family is planning for [facility] [place]. If arrangements can be completed today, patient will be discharged to rehab. Zackeryppra and Vimpat dosing clarified with Dr. Pedroza. 12/03: Patient does not qualify for inpatient rehab. Patient's does not want him to go to a jail. She is making arrangements for help at home as well as home care. Patient's mental status is currently stable. He has been afebrile, heart rate in the 60s, blood pressure 179/92 blood pressure readings have been high despite changes in medications which will again be just adjusted. Pulse ox 96% on room air. Patient's has now decided that she wants him to go to [facility] and discharge will be delayed until tomorrow. Patient is also complaining of headache for which Fioricet will be ordered Review of Systems Constitutional: No fever, no chills, no night sweats. No weight change. Reports weakness, fatigue or lethargy. No daytime sleepiness. EENT: No headache. No blurred vision or double vision, no loss of vision. No loss of Hearing, no ringing in the ears, no dizziness. No nasal drainage or congestion. No epistaxis. No sore throat. Lungs: No shortness of breath, cough, no sputum production. No wheezing. Cardiovascular: No chest pain, no lower extremity edema. No palpitations. No paroxysmal nocturnal dyspnea. No orthopnea. No lightheadedness or dizziness. No syncopal episodes. Abdominal: No abdominal pain. No nausea, vomiting. No diarrhea. No constipation. No bloody or tarry stools.. No loss of appetite. Genitourinary: No dysuria, increased frequency, urgency. No urinary retention. Musculoskeletal: No myalgias. Reports muscle weakness, reports gait dysfunction, no frequent falls. No back pain. No neck pain. Integumentary: No wounds, no lesions. No rash or pruritus. No unusual bruising. No change in hair or nails. Neurologic: No aphasia. No facial droop. No change in mentation. No head injury. No headache. No paralysis. No paresthesia. Psychiatric: No depression. No anxiety. No mood swings. Endocrine: No abnormal blood sugars. No weight change. No excessive sweating or thirst. No cold intolerance. Physical Examination Gen: This is an 85-year-old male. He is resting in bed and appears comfortable. HEENT: Head is atraumatic, normocephalic. Pupils equal, round. Sclerae is anicteric. NECK: Supple. No JVD. No lymphadenopathy. No thyromegaly. LUNGS: Clear to auscultation. No wheezes or rhonchi. No intercostal retr actions. HEART: Regular rate and rhythm. Systolic ejection murmur. ABDOMEN: Soft. Bowel sounds are present. No masses. No tenderness. EXTREMITIES: No pedal edema. No calf tenderness. NEUROLOGICAL: Patient is awake and alert and oriented to person place and time. Able to follow commands. No aphasia or neglect. He is able to move all 4 extremities. Assessment and Plan 1. Metabolic encephalopathy most likely secondary to epilepsy with focal onset seizures. Consult with neurology. Patient is currently nothing by mouth, PT, OT, speech therapy. Continue aspirin 81 mg daily, Xarelto resumed. 2. Seizure disorder, follows with Dr. Byrd. Keppra 750 mg oral twice daily and VimPat 150 mg oral twice daily. Neurology consult appreciated. 3. History of Bilateral pulmonary embolism originating from DVT right leg. Continue Xarelto. 4. Hypertension. Continue Coreg 12.5 mg twice daily, losartan increased to 100 mg daily. 5. Hyperlipidemia. Continue Lipitor 40 mg daily, Zetia 10 mg daily. 6. History of CVA. 7. Coronary artery disease status post angioplasty and stent placement. Continue Lipitor. 8. Benign prostatic hypertrophy with history of urinary retention that required chronic Olivo catheter. Continue Flomax 0.4 mg twice daily. 9. Restless leg syndrome. On Mirapex 1 mg twice daily. 10. GI prophylaxis. Protonix. 11. DVT prophylaxis. Will resume Xarelto. CODE STATUS: Full code Discharge plan [facility] on Wednesday. Impression and plan of care have been directed as dictated by the signing physician. Suly Gallo nurse practitioner acting as scribe for signing physician. Objective - Vital Signs Vital signs: Vital Signs Temp 99.3 F 12/03/20 11:40 Pulse 66 12/03/20 11:40 Resp 20 12/03/20 11:40 BP 158/99 12/03/20 11:40 Pulse Ox 98 12/03/20 11:40 Intake & Output 12/02/20 12/03/20 12/03/20 18:59 06:59 18:59 Intake Total 660 840 240 Output Total 125 Balance 660 840 115 Weight 91 kg 91 kg Intake: Oral 660 840 240 Output: Urine 125 Other: Voiding Method Diaper Diaper # Voids 3 1 2 # Bowel Movements 1 1 1 - Labs CBC & Chem 7: 12/02/20 06:11 12/02/20 12:17
[2020-12-03] MEDS: BUTA/APAP/CAF/COD 50-325-40-30 CAP PO PRN (15:31)
[2020-12-03] MEDS: RIVAROXABAN 20 MG TAB PO SCH (16:25)
[2020-12-03] MEDS: PRAMIPEXOLE 1 MG TAB PO SCH ×2 (18:38→22:40)
[2020-12-03] MEDS: MELATONIN 3 MG TABLET PO SCH (20:30)
[2020-12-03] MEDS: LATANOPROST 0.005% OPHTH DROPS 2.5 ML BTL BOTH EYES SCH (20:30)
[2020-12-03] MEDS: MONTELUKAST 10 MG TAB PO SCH (20:31)
[2020-12-03] MEDS: ATORVASTATIN 40 MG TAB PO SCH (20:31)
[2020-12-03 21:54] LABS: ALT <6 U/L (4-49); AST 24 U/L (17-59); African American GFR (CKD) >90 (>60 ml/min/1.73 sqM); Albumin 3.1 g/dL (3.5-5.0); Alkaline Phosphatase 80 U/L (38-126); Anion Gap 5 mmol/L; Blood Urea Nitrogen 13 mg/dL (9-20); Calcium 8.6 mg/dL (8.4-10.2); Carbon Dioxide 30 mmol/L (22-30); Chloride 98 mmol/L (98-107); Glucose 120 mg/dL (74-99); Non-African American GFR(CKD) 83 (>60 ml/min/1.73 sqM); Potassium 3.1 mmol/L (3.5-5.1); Sodium 133 mmol/L (137-145); Total Bilirubin 0.4 mg/dL (0.2-1.3); Total Protein 5.5 g/dL (6.3-8.2)
[2020-12-03] MEDS: POTASSIUM CHLORIDE ER 20 MEQ TAB.ER PO SCH ×2 (22:43→23:46)
[2020-12-04] MEDS: cloNIDine HCL 0.1 MG TAB PO PRN (06:10)
[2020-12-04] MEDS: carvediloL 12.5 MG TAB PO SCH (06:10)
[2020-12-04 06:18] VITALS: RESP 16
[2020-12-04 07:30] LABS: Basophils % (A) 1 %; Eosinophils # (A) 0.2 k/uL (0-0.7); Eosinophils % (A) 5 %; HCT 34.3 % (39.0-53.0); HGB 11.4 gm/dL (13.0-17.5); Lymphocytes # (A) 0.9 k/uL (1.0-4.8); Lymphocytes % (A) 21 %; MCH 30.7 pg (25.0-35.0); MCHC 33.2 g/dL (31.0-37.0); MCV 92.5 fL (80.0-100.0); Mean Platelet Volume 6.7; Monocytes # (A) 0.3 k/uL (0-1.0); Monocytes % (A) 6 %; Neutrophils # (A) 2.9 k/uL (1.3-7.7); Neutrophils % (A) 66 %; Platelet Count 260 k/uL (150-450); RBC 3.71 m/uL (4.30-5.90); WBC 4.4 k/uL (3.8-10.6)
[2020-12-04 07:47] LABS: African American GFR (CKD) >90 (>60 ml/min/1.73 sqM); Anion Gap 3 mmol/L; Blood Urea Nitrogen 11 mg/dL (9-20); Calcium 8.6 mg/dL (8.4-10.2); Carbon Dioxide 30 mmol/L (22-30); Chloride 101 mmol/L (98-107); Glucose 110 mg/dL (74-99); Non-African American GFR(CKD) >90 (>60 ml/min/1.73 sqM); Potassium 3.3 mmol/L (3.5-5.1); Sodium 134 mmol/L (137-145)
[2020-12-04] MEDS ORDERED: hydrALAZINE HCL 25 MG TAB PO STA (08:52)
[2020-12-04] MEDS ORDERED: hydrALAZINE HCL 25 MG TAB PO SCH (09:00)
[2020-12-04] MEDS: BUTA/APAP/CAF/COD 50-325-40-30 CAP PO PRN (09:31)
[2020-12-04] MEDS: CHOLECALCIFEROL 25 MCG (1000 IU) TABLET PO SCH (09:31)
[2020-12-04] MEDS: LOSARTAN 50 MG TAB PO SCH (09:32)
[2020-12-04] MEDS: ASPIRIN 81 MG PO SCH (09:32)
[2020-12-04] MEDS: TAMSULOSIN 0.4 MG CAP.ER.24H PO SCH (09:32)
[2020-12-04] MEDS: ESCITALOPRAM 10 MG TAB PO SCH (09:32)
[2020-12-04] MEDS: FERROUS SULFATE 325 MG TAB PO SCH (09:32)
[2020-12-04] MEDS: CARBIDOPA-LEVODOPA 25-100 MG 1 EACH TAB PO SCH (09:32)
[2020-12-04] MEDS: COLCHICINE 0.6 MG EACH PO SCH (09:35)
[2020-12-04] MEDS: TIMOLOL 0.5% OPHTH DROPS 5 ML BTL LEFT EYE SCH (09:36)
[2020-12-04] MEDS: BRIMONIDINE TARTRATE 0.2% DROPS 5 ML BTL LEFT EYE SCH (09:36)
[2020-12-04] MEDS: EZETIMIBE 10 MG TAB PO SCH (09:36)
[2020-12-04] MEDS: LACOSAMIDE 150 MG TABLET PO SCH (09:41)
[2020-12-04] MEDS: SODIUM CHLORIDE 0.9% 1,000 ML IV SCH (11:43)
[2020-12-04 12:12] VITALS: BP 158/85; PULSE 56; TEMP 97.7
== END 2020-12-04 13:20 | disposition home health service (06) | DRG 101 ==
LOC: EC 21:05 → 3SCARD 21:59
PROVIDERS: ADMIT Internal Medicine; ATTEND Internal Medicine
DX: G40.209 Localization-related (focal) (partial) symptomatic epilepsy and epileptic syndromes with complex partial seizures, not intractable, without status epilepticus (principal); E22.2 Syndrome of inappropriate secretion of antidiuretic hormone; I69.351 Hemiplegia and hemiparesis following cerebral infarction affecting right dominant side; T83.518A Infection and inflammatory reaction due to other urinary catheter, initial encounter; R47.01 Aphasia; N39.0 Urinary tract infection, site not specified; I95.89 Other hypotension; G20 Parkinson's disease; I11.9 Hypertensive heart disease without heart failure; I73.9 Peripheral vascular disease, unspecified; Z20.822 Contact with and (suspected) exposure to COVID-19; R31.9 Hematuria, unspecified; I25.10 Atherosclerotic heart disease of native coronary artery without angina pectoris; E78.5 Hyperlipidemia, unspecified; I69.392 Facial weakness following cerebral infarction; G25.81 Restless legs syndrome; N40.1 Benign prostatic hyperplasia with lower urinary tract symptoms; R33.8 Other retention of urine; K21.9 Gastro-esophageal reflux disease without esophagitis; G47.33 Obstructive sleep apnea (adult) (pediatric); G62.9 Polyneuropathy, unspecified; I49.3 Ventricular premature depolarization; I65.29 Occlusion and stenosis of unspecified carotid artery; M47.814 Spondylosis without myelopathy or radiculopathy, thoracic region; H40.9 Unspecified glaucoma; M79.7 Fibromyalgia; M15.9 Polyosteoarthritis, unspecified; M85.80 Other specified disorders of bone density and structure, unspecified site; R26.9 Unspecified abnormalities of gait and mobility; Z79.52 Long term (current) use of systemic steroids; Z79.899 Other long term (current) drug therapy; Z79.01 Long term (current) use of anticoagulants; Z86.711 Personal history of pulmonary embolism; Z86.718 Personal history of other venous thrombosis and embolism; Z95.5 Presence of coronary angioplasty implant and graft; Z85.46 Personal history of malignant neoplasm of prostate; Z90.79 Acquired absence of other genital organ(s); Z92.21 Personal history of antineoplastic chemotherapy; Z92.3 Personal history of irradiation; Z87.442 Personal history of urinary calculi; Z87.19 Personal history of other diseases of the digestive system; Z90.89 Acquired absence of other organs; Z87.39 Personal history of other diseases of the musculoskeletal system and connective tissue; Z98.42 Cataract extraction status, left eye; Z98.41 Cataract extraction status, right eye; Z96.1 Presence of intraocular lens; Z96.642 Presence of left artificial hip joint; Z96.653 Presence of artificial knee joint, bilateral; Z87.440 Personal history of urinary (tract) infections; Z86.61 Personal history of infections of the central nervous system; Z99.3 Dependence on wheelchair; Z98.890 Other specified postprocedural states; Y84.6 Urinary catheterization as the cause of abnormal reaction of the patient, or of later complication, without mention of misadventure at the time of the procedure; Z88.5 Allergy status to narcotic agent; Z88.8 Allergy status to other drugs, medicaments and biological substances; Z83.3 Family history of diabetes mellitus; Z82.3 Family history of stroke; Z82.49 Family history of ischemic heart disease and other diseases of the circulatory system; Z82.0 Family history of epilepsy and other diseases of the nervous system; Z80.0 Family history of malignant neoplasm of digestive organs; Z80.8 Family history of malignant neoplasm of other organs or systems
CPT/HCPCS: 36415; 70450; 70496; 70498; 70551; 71045; 80048; 80053; 80061; 80177; 81001; 83735; 84132; 84484; 85025; 85610; 85652; 85730; 86140; 87077; 87086; 87186; 87635; 93005; 94760; 95816; 95819; 99285

== ENCOUNTER 2021-01-17 12:59 | Emergency (ER) | payer MEDICARE ==
[2021-01-17 13:13] VITALS: RESP 18; TEMP 98
[2021-01-17 13:14] LABS: Glucose,Whole Blood 126 mg/dL (75-99)
[2021-01-17] MEDS ORDERED: SODIUM CHLORIDE 0.9% 500 ML 500 ML IV ONE (13:31)
--- NOTE | 2021-01-17 13:35 | ED ---
General Adult HPI - General Chief complaint: Neuro Symptoms/Deficit Stated complaint: AMS Time Seen by Provider: 01/17/21 13:00 Source: patient, RN notes reviewed, old records reviewed Mode of arrival: ambulatory Limitations: no limitations - History of Present Illness Initial comments: This is an 85-year-old male who is brought into the emergency department because thought he was altered mentally. Patient had no weakness or numbness. Patient states he has a headache but he states he always has a headache. Patient denies any blurred vision or slurred speech. Patient denies chest pain palpitations difficulty breathing shortness of breath per patient denies abdominal pain patient denies nausea vomiting diarrhea. Patient denies any recent fever chills or cough. - Related Data Home Medications Medication Instructions Recorded Confirmed Montelukast [Singulair] 10 mg PO HS@209909/19/15 01/17/21 Ferrous Sulfate [Iron (65 MG 325 mg PO DAILY 07/14/18 01/17/21 Elemental)] Ezetimibe [Zetia] 10 mg PO DAILY 04/16/20 01/17/21 Latanoprost/Pf [Latanoprost 0.005% 1 drop BOTH EYES HS@209904/16/20 01/17/21 Eye Drop] Rosuvastatin Calcium 20 mg PO HS@199904/16/20 01/17/21 Tamsulosin [Flomax] 0.4 mg PO DAILY 04/28/20 01/17/21 Rivaroxaban [Xarelto] 20 mg PO DAILY@1700 05/19/20 01/17/21 Brimonidine Tartrate [Alphagan P 1 drops LEFT EYE BID 11/26/20 01/17/21 0.2% Ophth Soln] Carvedilol [Coreg] 12.5 mg PO BID 11/26/20 01/17/21 Cholecalciferol [Vitamin D3 (25 125 mcg PO DAILY 11/26/20 01/17/21 Mcg = 1000 Iu)] Escitalopram [Lexapro] 10 mg PO DAILY 11/26/20 01/17/21 Pramipexole [Mirapex] 1 mg PO DAILY@1700,199911/26/20 01/17/21 Timolol [Betimol 0.5% Ophth Soln] 1 drop LEFT EYE BID 11/26/20 01/17/21 [id number] 2 tab PO Q4HR PRN 01/17/21 01/17/21 [Excedrin] Buta/APAP/Caf/Cod [id number] 1 - 2 cap PO Q6H PRN 01/17/21 01/17/21 [Fioricet w/Cod 40-401-27-30MG] Carbidopa-Levodopa ER 25-100Mg 1 tab PO TID@0900,1400,1800 01/17/21 01/17/21 [Sinemet ER 25-100] Melatonin 3 mg PO HS PRN 01/17/21 01/17/21 Relif Factor Supplement 3 cap PO DAILY 01/17/21 01/17/21 levETIRAcetam [Keppra] 500 mg PO BID 01/17/21 01/17/21 Previous Rx's Medication Instructions Recorded Aspirin 81 mg PO DAILY chew 12/02/20 Colchicine [Colcrys] 0.6 mg PO BID #60 tablet 12/02/20 Losartan [Cozaar] 100 mg PO DAILY #30 tab 12/02/20 Fludrocortisone [Florinef] 0.1 mg PO DAILY PRN #0 12/03/20 hydrALAZINE HCL [Apresoline] 50 mg PO BID #60 tab 12/03/20 Cefuroxime Axetil [Ceftin] 500 mg PO BID 10 Days #20 tab 01/17/21 Allergies Allergy/AdvReac Type Severity Reaction Status Date / Time metoclopramide [From Reglan] AdvReac SHAKES Verified 01/17/21 13:10 oxycodone HCl AdvReac Nausea & Verified 01/17/21 13:10 [From OxyContin] Vomiting Review of Systems ROS Statement: Those systems with pertinent positive or pertinent negative responses have been documented in the HPI. ROS Other: All systems not noted in ROS Statement are negative. 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, multiple TIAs, parkinson's disease, neuralgia, neuropathy bilateral hands, legs and feet, thoracic spondylosis, prostrate cancer with surgery/chemo and radiation, UTIs, kidney stones, L eye glaucoma, PVD/bilateral lower extremity edema, caratid stenosis, aemia, bronchitis, lower GI bleed History of Any Multi-Drug Resistant Organisms: None Reported Past Surgical History: Adenoidectomy, Back Surgery, Heart Catheterization With Stent, Hernia Repair, Joint Replacement, Orthopedic Surgery, Prostate Surgery, Tonsillectomy Additional Past Surgical History / Comment(s): PCI with stent in 2012, prostate biopsies, laser vaporization of prostrate, bilateral inquinal hernia repairs, EGD/colonoscopy, supraorbital percutaneous nerve stimulator trial, epidural injections, low back surgery, R foot hammer toe surgery, bilateral total knee replacements, bilateral cataract removals/lens implants, hemorrhoidectomy, R side of head vein biopsy, left hip arthroplasty 2 weeks ago Past Anesthesia/Blood Transfusion Reactions: No Reported Reaction Additional Past Anesthesia/Blood Transfusion Reaction / Comment(s): Pt has received blood in past without reaction. Date of Last Stent Placement:: 2012 Past Psychological History: No Psychological Hx Reported Smoking Status: Never smoker Past Alcohol Use History: None Reported Past Drug Use History: None Reported - Past Family History Brother(s) Family Medical History: No Reported History Additional Family Medical History / Comment(s): Patient has 3 brothers with no major medical problems. Sister(s) Family Medical History: Hypertension Additional Family Medical History / Comment(s): Patient has 3 sisters that are all alive. 2 have high blood pressure. One has diabetes and stroke and is 81 years old. And all have history of tremors. Son(s) Family Medical History: No Reported History Additional Family Medical History / Comment(s): Patient has 3 sons and one daughter with no major medical problems. Father Family Medical History: Myocardial Infarction (NM) Additional Family Medical History / Comment(s): Father at age 73 with history of Parkinson's disease, bowel cancer, bone cancer. Mother Family Medical History: No Reported History, Myocardial Infarction (NM) Additional Family Medical History / Comment(s): Mother at age 85 with history of hypertension and dementia. General Exam - General Exam Comments Initial Comments: GENERAL: Patient is well-developed and well-nourished. Patient is nontoxic and well- hydrated and is in no acute distress. ENT: Neck is soft and supple. No significant lymphadenopathy is noted. Oropharynx is clear. Moist mucous membranes. Neck has full range of motion without eliciting any pain. EYES: The sclera were anicteric and conjunctiva were pink and moist. Extraocular movements were intact and pupils were equal round and reactive to light. Eyelids were unremarkable. PULMONARY: Unlabored respirations. Good breath sounds bilaterally. No audible rales rhonchi or wheezing was noted. CARDIOVASCULAR: There is a regular rate and rhythm without any murmurs gallops or rubs. ABDOMEN: Soft and nontender with normal bowel sounds. SKIN: Skin is clear with no lesions or rashes and otherwise unremarkable. NEUROLOGIC: Patient is alert and oriented x3. Cranial nerves II through XII are grossly intact. Motor and sensory are also intact. Normal speech, volume and content. Symmetrical smile. MUSCULOSKELETAL: Normal extremities with adequate strength and full range of motion. No lower extremity swelling or edema. No calf tenderness. LYMPHATICS: No significant lymphadenopathy is noted PSYCHIATRIC: Normal psychiatric evaluation. Limitations: no limitations Course Vital Signs 01/17/21 01/17/21 13:00 13:10 Temperature 98 F 98 F Pulse Rate 71 71 Respiratory 18 18 Rate Blood Pressure 175/100 175/104 O2 Sat by Pulse 99 99 Oximetry Medical Decision Making - Medical Decision Making EKG shows sinus rhythm with occasional PAC at 73 bpm IN interval 172 QRS is 94 QT interval 436 QTC is 480. EKG shows no ST segment elevation or depression. CT of the brain shows no acute abnormality. Chest x-ray shows no acute medical Patient has urinary tract infection and gave the patient 2 g of Rocephin. I spoke with Dr. Lawson he was in agreement with getting the patient home and treating the patient is an outpatient. I spoke with the she was in agreement with sending patient home as was the patient. - Lab Data Result diagrams: 01/17/21 13:34 01/17/21 13:34 Lab Results 01/17/21 01/17/21 01/17/21 Range/Units 13:02 13:34 13:34 WBC 5.9 (3.8-10.6) k/uL RBC 4.06 L (4.30-5.90) m/uL Hgb 13.1 (13.0-17.5) gm/dL Hct 38.6 L (39.0-53.0) % MCV 95.1 (80.0-100.0) fL MCH 32.3 (25.0-35.0) pg MCHC 34.0 (31.0-37.0) g/dL RDW 12.9 (11.5-15.5) % Plt Count 202 (150-450) k/uL MPV 7.3 Neutrophils % 73 % Lymphocytes % 17 % Monocytes % 6 % Eosinophils % 2 % Basophils % 1 % Neutrophils # 4.3 (1.3-7.7) k/uL Lymphocytes # 1.0 (1.0-4.8) k/uL Monocytes # 0.4 (0-1.0) k/uL Eosinophils # 0.1 (0-0.7) k/uL Basophils # 0.0 (0-0.2) k/uL PT 10.6 (9.0-12.0) sec INR 1.0 (<1.2) APTT 26.1 (22.0-30.0) sec Sodium (137-145) mmol/L Potassium (3.5-5.1) mmol/L Chloride (98-107) mmol/L Carbon Dioxide (22-30) mmol/L Anion Gap mmol/L BUN (9-20) mg/dL Creatinine (0.66-1.25) mg/dL Est GFR (CKD-EPI)AfAm (>60 ml/min/1.73 sqM) Est GFR (CKD-EPI)NonAf (>60 ml/min/1.73 sqM) Glucose (74-99) mg/dL POC Glucose (mg/dL) 126 H (75-99) mg/dL POC Glu Brake Rider ID Marion Almeida Calcium (8.4-10.2) mg/dL Total Bilirubin (0.2-1.3) mg/dL AST (17-59) U/L ALT (4-49) U/L Alkaline Phosphatase (38-126) U/L Troponin I (0.000-0.034) ng/mL Total Protein (6.3-8.2) g/dL Albumin (3.5-5.0) g/dL Urine Color Urine Appearance (Clear) Urine pH (5.0-8.0) Ur Specific Henderson (1.001-1.035) Urine Protein (Negative) Urine Glucose (UA) (Negative) Urine Ketones (Negative) Urine Blood (Negative) Urine Nitrite (Negative) Urine Bilirubin (Negative) Urine Urobilinogen (<2.0) mg/dL Ur Leukocyte Esterase (Negative) Urine RBC (0-5) /hpf Urine WBC (0-5) /hpf Calcium Oxalate Crystal (None) /hpf Urine Bacteria (None) /hpf Urine Mucus (None) /hpf Urine Opiates Screen (NotDetected) Ur Oxycodone Screen (NotDetected) Urine Methadone Screen (NotDetected) Ur Propoxyphene Screen (NotDetected) Ur Barbiturates Screen (NotDetected) U Tricyclic Antidepress (NotDetected) Ur Phencyclidine Scrn (NotDetected) Ur Amphetamines Screen (NotDetected) U Methamphetamines Scrn (NotDetected) U Benzodiazepines Scrn (NotDetected) Urine Cocaine Screen (NotDetected) U Marijuana (THC) Screen (NotDetected) 01/17/21 01/17/21 01/17/21 Range/Units 13:34 13:34 13:34 WBC (3.8-10.6) k/uL RBC (4.30-5.90) m/uL Hgb (13.0-17.5) gm/dL Hct (39.0-53.0) % MCV (80.0-100.0) fL MCH (25.0-35.0) pg MCHC (31.0-37.0) g/dL RDW (11.5-15.5) % Plt Count (150-450) k/uL MPV Neutrophils % % Lymphocytes % % Monocytes % % Eosinophils % % Basophils % % Neutrophils # (1.3-7.7) k/uL Lymphocytes # (1.0-4.8) k/uL Monocytes # (0-1.0) k/uL Eosinophils # (0-0.7) k/uL Basophils # (0-0.2) k/uL PT (9.0-12.0) sec INR (<1.2) APTT (22.0-30.0) sec Sodium 138 (137-145) mmol/L Potassium 4.0 (3.5-5.1) mmol/L Chloride 103 (98-107) mmol/L Carbon Dioxide 29 (22-30) mmol/L Anion Gap 6 mmol/L BUN 24 H (9-20) mg/dL Creatinine 0.76 (0.66-1.25) mg/dL Est GFR (CKD-EPI)AfAm >90 (>60 ml/min/1.73 sqM) Est GFR (CKD-EPI)NonAf 84 (>60 ml/min/1.73 sqM) Glucose 104 H (74-99) mg/dL POC Glucose (mg/dL) (75-99) mg/dL POC Glu Brake Rider ID Calcium 9.1 (8.4-10.2) mg/dL Total Bilirubin 0.7 (0.2-1.3) mg/dL AST 20 (17-59) U/L ALT <6 (4-49) U/L Alkaline Phosphatase 94 (38-126) U/L Troponin I <0.012 (0.000-0.034) ng/mL Total Protein 6.4 (6.3-8.2) g/dL Albumin 3.8 (3.5-5.0) g/dL Urine Color Urine Appearance (Clear) Urine pH (5.0-8.0) Ur Specific Henderson (1.001-1.035) Urine Protein (Negative) Urine Glucose (UA) (Negative) Urine Ketones (Negative) Urine Blood (Negative) Urine Nitrite (Negative) Urine Bilirubin (Negative) Urine Urobilinogen (<2.0) mg/dL Ur Leukocyte Esterase (Negative) Urine RBC (0-5) /hpf Urine WBC (0-5) /hpf Calcium Oxalate Crystal (None) /hpf Urine Bacteria (None) /hpf Urine Mucus (None) /hpf Urine Opiates Screen Detected H (NotDetected) Ur Oxycodone Screen Not Detected (NotDetected) Urine Methadone Screen Not Detected (NotDetected) Ur Propoxyphene Screen Not Detected (NotDetected) Ur Barbiturates Screen Detected H (NotDetected) U Tricyclic Antidepress Not Detected (NotDetected) Ur Phencyclidine Scrn Not Detected (NotDetected) Ur Amphetamines Screen Not Detected (NotDetected) U Methamphetamines Scrn Not Detected (NotDetected) U Benzodiazepines Scrn Not Detected (NotDetected) Urine Cocaine Screen Not Detected (NotDetected) U Marijuana (THC) Screen Not Detected (NotDetected) 01/17/21 Range/Units 14:05 WBC (3.8-10.6) k/uL RBC (4.30-5.90) m/uL Hgb (13.0-17.5) gm/dL Hct (39.0-53.0) % MCV (80.0-100.0) fL MCH (25.0-35.0) pg MCHC (31.0-37.0) g/dL RDW (11.5-15.5) % Plt Count (150-450) k/uL MPV Neutrophils % % Lymphocytes % % Monocytes % % Eosinophils % % Basophils % % Neutrophils # (1.3-7.7) k/uL Lymphocytes # (1.0-4.8) k/uL Monocytes # (0-1.0) k/uL Eosinophils # (0-0.7) k/uL Basophils # (0-0.2) k/uL PT (9.0-12.0) sec INR (<1.2) APTT (22.0-30.0) sec Sodium (137-145) mmol/L Potassium (3.5-5.1) mmol/L Chloride (98-107) mmol/L Carbon Dioxide (22-30) mmol/L Anion Gap mmol/L BUN (9-20) mg/dL Creatinine (0.66-1.25) mg/dL Est GFR (CKD-EPI)AfAm (>60 ml/min/1.73 sqM) Est GFR (CKD-EPI)NonAf (>60 ml/min/1.73 sqM) Glucose (74-99) mg/dL POC Glucose (mg/dL) (75-99) mg/dL POC Glu Brake Rider ID Calcium (8.4-10.2) mg/dL Total Bilirubin (0.2-1.3) mg/dL AST (17-59) U/L ALT (4-49) U/L Alkaline Phosphatase (38-126) U/L Troponin I (0.000-0.034) ng/mL Total Protein (6.3-8.2) g/dL Albumin (3.5-5.0) g/dL Urine Color Yellow Urine Appearance Cloudy (Clear) Urine pH 5.5 (5.0-8.0) Ur Specific Henderson 1.020 (1.001-1.035) Urine Protein Trace H (Negative) Urine Glucose (UA) Negative (Negative) Urine Ketones Negative (Negative) Urine Blood Moderate H (Negative) Urine Nitrite Positive (Negative) Urine Bilirubin Negative (Negative) Urine Urobilinogen <2.0 (<2.0) mg/dL Ur Leukocyte Esterase Large H (Negative) Urine RBC 161 H (0-5) /hpf Urine WBC 155 H (0-5) /hpf Calcium Oxalate Crystal Rare H (None) /hpf Urine Bacteria Few H (None) /hpf Urine Mucus Occasional H (None) /hpf Urine Opiates Screen (NotDetected) Ur Oxycodone Screen (NotDetected) Urine Methadone Screen (NotDetected) Ur Propoxyphene Screen (NotDetected) Ur Barbiturates Screen (NotDetected) U Tricyclic Antidepress (NotDetected) Ur Phencyclidine Scrn (NotDetected) Ur Amphetamines Screen (NotDetected) U Methamphetamines Scrn (NotDetected) U Benzodiazepines Scrn (NotDetected) Urine Cocaine Screen (NotDetected) U Marijuana (THC) Screen (NotDetected) Disposition Clinical Impression: Urinary tract infection, Hypertension Disposition: HOME SELF-CARE Condition: Good Instructions (If sedation given, give patient instructions): Urinary Tract Infe ction in Men (ED) Prescriptions: Cefuroxime Axetil [Ceftin] 500 mg PO BID 10 Days #20 tab Is patient prescribed a controlled substance at d/c from ED?: No Referrals: Louis Lawson MD [Primary Care Provider] - 1-2 days Time of Disposition: 15:50
[2021-01-17 13:42] LABS: Basophils % (A) 1 %; Eosinophils # (A) 0.1 k/uL (0-0.7); Eosinophils % (A) 2 %; HCT 38.6 % (39.0-53.0); HGB 13.1 gm/dL (13.0-17.5); Lymphocytes % (A) 17 %; MCH 32.3 pg (25.0-35.0); MCV 95.1 fL (80.0-100.0); Mean Platelet Volume 7.3; Monocytes # (A) 0.4 k/uL (0-1.0); Monocytes % (A) 6 %; Neutrophils # (A) 4.3 k/uL (1.3-7.7); Neutrophils % (A) 73 %; Platelet Count 202 k/uL (150-450); RBC 4.06 m/uL (4.30-5.90); RDW 12.9 % (11.5-15.5); WBC 5.9 k/uL (3.8-10.6)
[2021-01-17 13:56] LABS: Partial Thromboplastin Time 26.1 sec (22.0-30.0); Prothrombin Time 10.6 sec (9.0-12.0)
[2021-01-17 13:57] LABS: ALT <6 U/L (4-49); AST 20 U/L (17-59); African American GFR (CKD) >90 (>60 ml/min/1.73 sqM); Albumin 3.8 g/dL (3.5-5.0); Alkaline Phosphatase 94 U/L (38-126); Anion Gap 6 mmol/L; Blood Urea Nitrogen 24 mg/dL (9-20); Calcium 9.1 mg/dL (8.4-10.2); Carbon Dioxide 29 mmol/L (22-30); Chloride 103 mmol/L (98-107); Glucose 104 mg/dL (74-99); Non-African American GFR(CKD) 84 (>60 ml/min/1.73 sqM); Sodium 138 mmol/L (137-145); Total Bilirubin 0.7 mg/dL (0.2-1.3); Total Protein 6.4 g/dL (6.3-8.2)
[2021-01-17 14:12] LABS: Amphetamine Screen,Urine Not Detected (NotDetected); Barbiturate Screen,Urine Detected (NotDetected); Benzodiazepines Screen,Urine Not Detected (NotDetected); Cocaine Screen,Urine Not Detected (NotDetected); Methadone Screen, Urine Not Detected (NotDetected); Opiate Screen,Urine Detected (NotDetected); Oxycodone Screen, Urine Not Detected (NotDetected); Phencyclidine Screen,Urine Not Detected (NotDetected); Tricyclic Antidepressant,Urine Not Detected (NotDetected); Urn Cannabinoid Scrn Not Detected (NotDetected)
--- NOTE | 2021-01-17 14:24 | CT ---
EXAMINATION TYPE: CT brain wo con DATE OF EXAM: 01/17/2021 COMPARISON: 11/26/2020 HISTORY: Weakness and blurred vision with history of TIA. CT DLP: 1110.4 mGycm Automated exposure control for dose reduction was used. FINDINGS: Moderate generalized degenerative change with low attenuation diffusely throughout the white matter. Abnormal attenuation in the basal ganglia suggestive or remote lacunar infarct. Prominent cisterna ma gna or small arachnoid cyst noted in posterior fossa. No midline shift. No acute hemorrhage. Calvariu m intact. Orbits symmetric. Sinuses clear. IMPRESSION: DEGENERATIVE AND NONSPECIFIC WHITE MATTER CHANGES MOST TYPICAL REMOTE ISCHEMIA. CORRELATE CLINICALLY. SMALL ARACHNOID CYST VERSUS PROMINENT CISTERNA MAGNA IN THE POSTERIOR FOSSA..
[2021-01-17 14:34] LABS: Appearance,Urine Cloudy (Clear); Bacteria,Urine Few /hpf; Bilirubin,Urine Negative (Negative); Blood,Urine Moderate (Negative); Calcium Oxalate Crystals,Urine Rare /hpf; Color,Urine Yellow; Glucose,Urine (UA) Negative (Negative); Ketones,Urine Negative (Negative); Leukocyte Esterase,Urine Large (Negative); Mucus,Urine Occasional /hpf; Nitrite,Urine Positive (Negative); PH, Urine 5.5 (5.0-8.0); Protein,Urine Trace (Negative); RBC,Urine 161 /hpf (0-5); Urobilinogen,Urine <2.0 mg/dL (<2.0); WBC,Urine 155 /hpf (0-5)
--- NOTE | 2021-01-17 14:53 | XR ---
By 5 EXAMINATION TYPE: XR chest 2V DATE OF EXAM: 01/17/2021 COMPARISON: 11/26 HISTORY: Shortness of breath TECHNIQUE: Frontal and lateral views of the chest are obtained. FINDINGS: Scattered senescent parenchymal changes noted. Hyperinflation compatible with COPD. No evidence for infiltrate. No evidence for atelectasis. Heart size is stable. Mediastinal structures are stable and grossly unremarkable. No evidence for hilar prominence. Degenerative changes dorsal spine. IMPRESSION: 1. No evidence for acute pulmonary disease.
[2021-01-17] MEDS ORDERED: cefTRIAXone IN SWFI 1,000 MG/10 ML SYRINGE IVP STA (15:16)
[2021-01-17] MEDS ORDERED: hydrALAZINE HCL 20 MG/ML 1 ML VIAL IVP STA (15:22)
[2021-01-17] MEDS ORDERED: ASPIRIN-ACET-CAFF 250-250-65MG 1 EACH TAB PO STA (15:40)
[2021-01-17 16:33] VITALS: PULSE 77
[2021-01-17 17:25] VITALS: BP 161/79
== END 2021-01-17 17:24 | disposition home or self-care (01) ==
LOC: EC 12:59
DX: I10 Essential (primary) hypertension (principal); N39.0 Urinary tract infection, site not specified; I25.10 Atherosclerotic heart disease of native coronary artery without angina pectoris; E78.5 Hyperlipidemia, unspecified; M19.90 Unspecified osteoarthritis, unspecified site; G47.33 Obstructive sleep apnea (adult) (pediatric); K21.9 Gastro-esophageal reflux disease without esophagitis; Z86.73 Personal history of transient ischemic attack (TIA), and cerebral infarction without residual deficits; Z99.81 Dependence on supplemental oxygen; Z95.5 Presence of coronary angioplasty implant and graft; Z90.09 Acquired absence of other part of head and neck; Z87.442 Personal history of urinary calculi
CPT/HCPCS: 36415; 93005; 80053; 84484; 85025; 85610; 85730; 81001; 80306; 87086; 87077; 87186; 71046; 70450; 99284; 96374; 96375; J0360; J0696

== ENCOUNTER 2021-05-12 23:37 | Inpatient (IN) | payer MEDICARE ==
[2021-05-12] MEDS ORDERED: SODIUM CHLORIDE 0.9% 1,000 ML IV STA (23:46)
[2021-05-12] MEDS ORDERED: LABETALOL 5 MG/ML VIAL MDV IVP STA (23:47)
--- NOTE | 2021-05-12 23:47 | ED ---
Altered Mental Status HPI - General Chief Complaint: Altered Mental Status Stated Complaint: Altered Mental Time Seen by Provider: 05/12/21 23:46 Source: patient, EMS Mode of arrival: EMS Limitations: no limitations - Related Data Home Medications Medication Instructions Recorded Confirmed Montelukast [Singulair] 10 mg PO HS@209909/19/15 01/17/21 Ferrous Sulfate [Iron (65 MG 325 mg PO DAILY 07/14/18 01/17/21 Elemental)] Ezetimibe [Zetia] 10 mg PO DAILY 04/16/20 01/17/21 Latanoprost/Pf [Latanoprost 0.005% 1 drop BOTH EYES HS@209904/16/20 01/17/21 Eye Drop] Rosuvastatin Calcium 20 mg PO HS@199904/16/20 01/17/21 Tamsulosin [Flomax] 0.4 mg PO DAILY 04/28/20 01/17/21 Rivaroxaban [Xarelto] 20 mg PO DAILY@169905/19/20 01/17/21 Brimonidine Tartrate [Alphagan P 1 drops LEFT EYE BID 11/26/20 01/17/21 0.2% Ophth Soln] Carvedilol [Coreg] 12.5 mg PO BID 11/26/20 01/17/21 Cholecalciferol [Vitamin D3 (25 125 mcg PO DAILY 11/26/20 01/17/21 Mcg = 1000 Iu)] Escitalopram [Lexapro] 10 mg PO DAILY 11/26/20 01/17/21 Pramipexole [Mirapex] 1 mg PO DAILY@1699,199911/26/20 01/17/21 Timolol [Betimol 0.5% Ophth Soln] 1 drop LEFT EYE BID 11/26/20 01/17/21 Zhoeosa-Bjci-Cbwh [id number] 2 tab PO Q4HR PRN 01/17/21 01/17/21 [Excedrin] Buta/APAP/Caf/Cod [id number] 1 - 2 cap PO Q6H PRN 01/17/21 01/17/21 [Fioricet w/Cod 44-931-75-30MG] Carbidopa-Levodopa ER 25-100Mg 1 tab PO TID@0900,1400,1800 01/17/21 01/17/21 [Sinemet ER 25-100] Melatonin 3 mg PO HS PRN 01/17/21 01/17/21 Relif Factor Supplement 3 cap PO DAILY 01/17/21 01/17/21 levETIRAcetam [Keppra] 500 mg PO BID 01/17/21 01/17/21 Previous Rx's Medication Instructions Recorded Aspirin 81 mg PO DAILY chew 12/02/20 Colchicine [Colcrys] 0.6 mg PO BID #60 tablet 12/02/20 Losartan [Cozaar] 100 mg PO DAILY #30 tab 12/02/20 Fludrocortisone [Florinef] 0.1 mg PO DAILY PRN #0 12/03/20 hydrALAZINE HCL [Apresoline] 50 mg PO BID #60 tab 12/03/20 Cefuroxime Axetil [Ceftin] 500 mg PO BID 10 Days #20 tab 01/17/21 Allergies Allergy/AdvReac Type Severity Reaction Status Date / Time metoclopramide [From Reglan] AdvReac SHAKES Verified 01/17/21 13:10 oxycodone HCl AdvReac Nausea & Verified 01/17/21 13:10 [From OxyContin] Vomiting Review of Systems ROS Statement: Those systems with pertinent positive or pertinent negative responses have been documented in the HPI. ROS Other: All systems not noted in ROS Statement are negative. 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, multiple TIAs, parkinson's disease, neuralgia, neuropathy bilateral hands, legs and feet, thoracic spondylosis, prostrate cancer with surgery/chemo and radiation, UTIs, kidney stones, L eye glaucoma, PVD/bilateral lower ex tremity edema, caratid stenosis, aemia, bronchitis, lower GI bleed History of Any Multi-Drug Resistant Organisms: None Reported Past Surgical History: Adenoidectomy, Back Surgery, Heart Catheterization With Stent, Hernia Repair, Joint Replacement, Orthopedic Surgery, Prostate Surgery, Tonsillectomy Additional Past Surgical History / Comment(s): PCI with stent in 2013, prostate biopsies, laser vaporization of prostrate, bilateral inquinal hernia repairs, EGD/colonoscopy, supraorbital percutaneous nerve stimulator trial, epidural injections, low back surgery, R foot hammer toe surgery, bilateral total knee replacements, bilateral cataract removals/lens implants, hemorrhoidectomy, R side of head vein biopsy, left hip arthroplasty 2 weeks ago Past Anesthesia/Blood Transfusion Reactions: No Reported Reaction Additional Past Anesthesia/Blood Transfusion Reaction / Comment(s): Pt has received blood in past without reaction. Date of Last Stent Placement:: 2012 Past Psychological History: No Psychological Hx Reported Smoking Status: Never smoker Past Alcohol Use History: None Reported Past Drug Use History: None Reported - Past Family History Brother(s) Family Medical History: No Reported History Additional Family Medical History / Comment(s): Patient has 3 brothers with no major medical problems. Sister(s) Family Medical History: Hypertension Additional Family Medical History / Comment(s): Patient has 3 sisters that are all alive. 2 have high blood pressure. One has diabetes and stroke and is 81 years old. And all have history of tremors. Son(s) Family Medical History: No Reported History Additional Family Medical History / Comment(s): Patient has 3 sons and one daughter with no major medical problems. Father Family Medical History: Myocardial Infarction ([place]) Additional Family Medical History / Comment(s): Father at age 73 with history of Parkinson's disease, bowel cancer, bone cancer. Mother Family Medical History: No Reported History, Myocardial Infarction ([place]) Additional Family Medical History / Comment(s): Mother at age 85 with history of hypertension and dementia. General Exam Limitations: no limitations Course Vital Signs 05/12/21 23:38 Temperature 98 F Pulse Rate 82 Respiratory 18 Rate Blood Pressure 193/119 O2 Sat by Pulse 96 Oximetry Medical Decision Making - Lab Data Result diagrams: 05/12/21 23:51 05/12/21 23:51 Lab Results 05/12/21 05/12/21 05/12/21 Range/Units 23:51 23:51 23:51 WBC 4.2 (3.8-10.6) k/uL RBC 3.99 L (4.30-5.90) m/uL Hgb 12.9 L (13.0-17.5) gm/dL Hct 38.1 L (39.0-53.0) % MCV 95.6 (80.0-100.0) fL MCH 32.3 (25.0-35.0) pg MCHC 33.8 (31.0-37.0) g/dL RDW 13.6 (11.5-15.5) % Plt Count 196 (150-450) k/uL MPV 7.6 Neutrophils % 59 % Lymphocytes % 26 % Monocytes % 7 % Eosinophils % 5 % Basophils % 1 % Neutrophils # 2.5 (1.3-7.7) k/uL Lymphocytes # 1.1 (1.0-4.8) k/uL Monocytes # 0.3 (0-1.0) k/uL Eosinophils # 0.2 (0-0.7) k/uL Basophils # 0.0 (0-0.2) k/uL PT 14.0 H (9.0-12.0) sec INR 1.4 H (<1.2) APTT 34.6 H (22.0-30.0) sec Sodium (137-145) mmol/L Potassium (3.5-5.1) mmol/L Chloride (98-107) mmol/L Carbon Dioxide (22-30) mmol/L Anion Gap mmol/L BUN (9-20) mg/dL Creatinine (0.66-1.25) mg/dL Est GFR (CKD-EPI)AfAm (>60 ml/min/1.73 sqM) Est GFR (CKD-EPI)NonAf (>60 ml/min/1.73 sqM) Glucose (74-99) mg/dL Plasma Lactic Acid Rufino (0.7-2.0) mmol/L Calcium (8.4-10.2) mg/dL Phosphorus (2.5-4.5) mg/dL Magnesium (1.6-2.3) mg/dL Total Bilirubin (0.2-1.3) mg/dL AST (17-59) U/L ALT (4-49) U/L Alkaline Phosphatase (38-126) U/L Creatine Kinase (55-170) U/L Troponin I (0.000-0.034) ng/mL NT-Pro-B Natriuret Pep pg/mL Total Protein (6.3-8.2) g/dL Albumin (3.5-5.0) g/dL TSH (0.465-4.680) mIU/L Urine Color Yellow Urine Appearance Clear (Clear) Urine pH 6.5 (5.0-8.0) Ur Specific [place] 1.016 (1.001-1.035) Urine Protein Negative (Negative) Urine Glucose (UA) Negative (Negative) Urine Ketones Negative (Negative) Urine Blood Negative (Negative) Urine Nitrite Negative (Negative) Urine Bilirubin Negative (Negative) Urine Urobilinogen <2.0 (<2.0) mg/dL Ur Leukocyte Esterase Negative (Negative) 05/12/21 05/12/21 05/12/21 Range/Units 23:51 23:51 23:51 WBC (3.8-10.6) k/uL RBC (4.30-5.90) m/uL Hgb (13.0-17.5) gm/dL Hct (39.0-53.0) % MCV (80.0-100.0) fL MCH (25.0-35.0) pg MCHC (31.0-37.0) g/dL RDW (11.5-15.5) % Plt Count (150-450) k/uL MPV Neutrophils % % Lymphocytes % % Monocytes % % Eosinophils % % Basophils % % Neutrophils # (1.3-7.7) k/uL Lymphocytes # (1.0-4.8) k/uL Monocytes # (0-1.0) k/uL Eosinophils # (0-0.7) k/uL Basophils # (0-0.2) k/uL PT (9.0-12.0) sec INR (<1.2) APTT (22.0-30.0) sec Sodium 135 L (137-145) mmol/L Potassium 3.5 (3.5-5.1) mmol/L Chloride 101 (98-107) mmol/L Carbon Dioxide 28 (22-30) mmol/L Anion Gap 6 mmol/L BUN 22 H (9-20) mg/dL Creatinine 0.71 (0.66-1.25) mg/dL Est GFR (CKD-EPI)AfAm >90 (>60 ml/min/1.73 sqM) Est GFR (CKD-EPI)NonAf 87 (>60 ml/min/1.73 sqM) Glucose 115 H (74-99) mg/dL Plasma Lactic Acid Rufino 1.0 (0.7-2.0) mmol/L Calcium 9.3 (8.4-10.2) mg/dL Phosphorus 4.1 (2.5-4.5) mg/dL Magnesium 2.1 (1.6-2.3) mg/dL Total Bilirubin 0.5 (0.2-1.3) mg/dL AST 32 (17-59) U/L ALT <6 (4-49) U/L Alkaline Phosphatase 95 (38-126) U/L Creatine Kinase 38 L (55-170) U/L Troponin I <0.012 (0.000-0.034) ng/mL NT-Pro-B Natriuret Pep pg/mL Total Protein 6.3 (6.3-8.2) g/dL Albumin 4.0 (3.5-5.0) g/dL TSH 3.930 (0.465-4.680) mIU/L Urine Color Urine Appearance (Clear) Urine pH (5.0-8.0) Ur Specific [place] (1.001-1.035) Urine Protein (Negative) Urine Glucose (UA) (Negative) Urine Ketones (Negative) Urine Blood (Negative) Urine Nitrite (Negative) Urine Bilirubin (Negative) Urine Urobilinogen (<2.0) mg/dL Ur Leukocyte Esterase (Negative) 05/12/21 Range/Units 23:51 WBC (3.8-10.6) k/uL RBC (4.30-5.90) m/uL Hgb (13.0-17.5) gm/dL Hct (39.0-53.0) % MCV (80.0-100.0) fL MCH (25.0-35.0) pg MCHC (31.0-37.0) g/dL RDW (11.5-15.5) % Plt Count (150-450) k/uL MPV Neutrophils % % Lymphocytes % % Monocytes % % Eosinophils % % Basophils % % Neutrophils # (1.3-7.7) k/uL Lymphocytes # (1.0-4.8) k/uL Monocytes # (0-1.0) k/uL Eosinophils # (0-0.7) k/uL Basophils # (0-0.2) k/uL PT (9.0-12.0) sec INR (<1.2) APTT (22.0-30.0) sec Sodium (137-145) mmol/L Potassium (3.5-5.1) mmol/L Chloride (98-107) mmol/L Carbon Dioxide (22-30) mmol/L Anion Gap mmol/L BUN (9-20) mg/dL Creatinine (0.66-1.25) mg/dL Est GFR (CKD-EPI)AfAm (>60 ml/min/1.73 sqM) Est GFR (CKD-EPI)NonAf (>60 ml/min/1.73 sqM) Glucose (74-99) mg/dL Plasma Lactic Acid Rufino (0.7-2.0) mmol/L Calcium (8.4-10.2) mg/dL Phosphorus (2.5-4.5) mg/dL Magnesium (1.6-2.3) mg/dL Total Bilirubin (0.2-1.3) mg/dL AST (17-59) U/L ALT (4-49) U/L Alkaline Phosphatase (38-126) U/L Creatine Kinase (55-170) U/L Troponin I (0.000-0.034) ng/mL NT-Pro-B Natriuret Pep 1570 pg/mL Total Protein (6.3-8.2) g/dL Albumin (3.5-5.0) g/dL TSH (0.465-4.680) mIU/L Urine Color Urine Appearance (Clear) Urine pH (5.0-8.0) Ur Specific [place] (1.001-1.035) Urine Protein (Negative) Urine Glucose (UA) (Negative) Urine Ketones (Negative) Urine Blood (Negative) Urine Nitrite (Negative) Urine Bilirubin (Negative) Urine Urobilinogen (<2.0) mg/dL Ur Leukocyte Esterase (Negative) - EKG Data -: EKG Interpreted by Me (KG shows sinus rhythm 80, ID [id number] QRS 96 QTc 486) Disposition Clinical Impression: Delirium due to general medical condition, Confusion, HTN (hypertension), Hypertensive encephalopathy Disposition: ADMITTED IP TO THIS HOSP Condition: Fair Is patient prescribed a controlled substance at d/c from ED?: No Referrals: Louis Lawson MD [Primary Care Provider] - 1-2 days
--- NOTE | 2021-05-13 00:15 | CT ---
EXAMINATION TYPE: CT brain wo con DATE OF EXAM: 05/12/2021 COMPARISON: 01/17/2021 HISTORY: AMS CT DLP: 1068.4 mGycm Automated exposure control for dose reduction was used. Images of the brain obtained without contrast. There is cerebral cortical atrophy. There is moderate hypodensity in the periventricular white matter . There is no mass effect nor midline shift. There is no sign of intracranial hemorrhage. Calvarium i s intact. Skull base is intact. IMPRESSION: Cerebral atrophy and moderate chronic small vessel ischemia. No acute intracranial abnormality. No ch shanti.
--- NOTE | 2021-05-13 00:21 | XR ---
EXAMINATION TYPE: XR chest 2V DATE OF EXAM: 05/13/2021 COMPARISON: 01/17/2021 HISTORY: Altered mental status weakness TECHNIQUE: FINDINGS: There is no heart failure nor confluent pneumonic infiltrate. Costophrenic angles are clear . Heart size is fairly normal. Bony thorax is intact. IMPRESSION: No active cardiopulmonary disease. No change.
[2021-05-13 00:24] LABS: Basophils % (A) 1 %; Eosinophils # (A) 0.2 k/uL (0-0.7); Eosinophils % (A) 5 %; HCT 38.1 % (39.0-53.0); HGB 12.9 gm/dL (13.0-17.5); Lymphocytes # (A) 1.1 k/uL (1.0-4.8); Lymphocytes % (A) 26 %; MCH 32.3 pg (25.0-35.0); MCHC 33.8 g/dL (31.0-37.0); MCV 95.6 fL (80.0-100.0); Mean Platelet Volume 7.6; Monocytes # (A) 0.3 k/uL (0-1.0); Monocytes % (A) 7 %; Neutrophils # (A) 2.5 k/uL (1.3-7.7); Neutrophils % (A) 59 %; Platelet Count 196 k/uL (150-450); RBC 3.99 m/uL (4.30-5.90); RDW 13.6 % (11.5-15.5); WBC 4.2 k/uL (3.8-10.6)
[2021-05-13 00:37] LABS: ALT <6 U/L (4-49); AST 32 U/L (17-59); African American GFR (CKD) >90 (>60 ml/min/1.73 sqM); Alkaline Phosphatase 95 U/L (38-126); Anion Gap 6 mmol/L; Blood Urea Nitrogen 22 mg/dL (9-20); Calcium 9.3 mg/dL (8.4-10.2); Carbon Dioxide 28 mmol/L (22-30); Chloride 101 mmol/L (98-107); Creatine Kinase 38 U/L (55-170); Glucose 115 mg/dL (74-99); Non-African American GFR(CKD) 87 (>60 ml/min/1.73 sqM); Phosphorus 4.1 mg/dL (2.5-4.5); Potassium 3.5 mmol/L (3.5-5.1); Sodium 135 mmol/L (137-145); Total Bilirubin 0.5 mg/dL (0.2-1.3); Total Protein 6.3 g/dL (6.3-8.2)
[2021-05-13 00:38] LABS: Magnesium 2.1 mg/dL (1.6-2.3)
[2021-05-13 00:55] LABS: Appearance,Urine Clear (Clear); Bilirubin,Urine Negative (Negative); Blood,Urine Negative (Negative); Color,Urine Yellow; Glucose,Urine (UA) Negative (Negative); Ketones,Urine Negative (Negative); Leukocyte Esterase,Urine Negative (Negative); Nitrite,Urine Negative (Negative); PH, Urine 6.5 (5.0-8.0); Protein,Urine Negative (Negative); Specific Gravity,Urine 1.016 (1.001-1.035); Urobilinogen,Urine <2.0 mg/dL (<2.0)
[2021-05-13 01:02] LABS: INR 1.4 (<1.2); Partial Thromboplastin Time 34.6 sec (22.0-30.0)
[2021-05-13] MEDS ORDERED: NALOXONE 0.4 MG/ML 1 ML VIAL IV PRN (01:29)
[2021-05-13] MEDS ORDERED: ONDANSETRON 4 MG/2 ML VIAL IVP PRN (01:29)
[2021-05-13] MEDS ORDERED: ACETAMINOPHEN TAB 325 MG TAB PO PRN (01:29)
[2021-05-13] MEDS ORDERED: LABETALOL 5 MG/ML VIAL MDV IVP STA (01:32)
[2021-05-13] MEDS: SODIUM CHLORIDE 0.9% 1,000 ML IV SCH ×3 (03:37→22:17)
[2021-05-13] MEDS: MORPHINE SULFATE 4 MG/ML SYRINGE IV PRN ×2 (03:57→08:15)
[2021-05-13] MEDS ORDERED: ASPIRIN-ACET-CAFF 250-250-65MG 1 EACH TAB PO PRN (10:39)
[2021-05-13] MEDS ORDERED: BUTA/APAP/CAF/COD 50-325-40-30 CAP PO PRN (10:39)
[2021-05-13] MEDS ORDERED: FLUDROCORTISONE 0.1 MG TAB PO PRN (10:39)
[2021-05-13] MEDS ORDERED: hydrALAZINE HCL 50 MG TAB PO SCH (11:00)
[2021-05-13] MEDS: BRIMONIDINE TARTRATE 0.2% DROPS 5 ML BTL LEFT EYE SCH (11:28)
[2021-05-13] MEDS: FERROUS SULFATE 325 MG TAB PO SCH (11:29)
[2021-05-13] MEDS: LOSARTAN 50 MG TAB PO SCH (11:29)
[2021-05-13] MEDS: levETIRAcetam 500 MG TAB PO SCH (11:29)
[2021-05-13] MEDS: carvediloL 12.5 MG TAB PO SCH ×2 (11:29→16:59)
[2021-05-13] MEDS: TAMSULOSIN 0.4 MG CAP.ER.24H PO SCH (11:29)
[2021-05-13] MEDS: ESCITALOPRAM 10 MG TAB PO SCH (11:29)
[2021-05-13] MEDS ORDERED: DOCUSATE 100 MG CAP PO PRN (11:45)
[2021-05-13] MEDS ORDERED: SENNOSIDES 8.6 MG TAB PO PRN (11:45)
--- NOTE | 2021-05-13 14:32 | P.HPIM ---
History of Present Illness H&P Date: 05/13/21 Chief Complaint: Increased confusion, weakness, high blood pressure This is an 85-year-old male patient of Dr. 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 He was readmitted from April 28 through May 06, 2020, at which time he was seen by multiple consultants including neurology for seizure activity and adjustments were made on Keppra and patient was started on Vimpat. He was also treated for acute catheter associated urinary tract infection, urinary retention, hematuria and was seen by Dr. Gaspar. Patient was seen by Dr. Reina for hyponatremia with SIADH. Patient was stabilized and discharged back to [facility]. Patient is currently seeing Dr. Byrd and is stable on the current seizure medications. Patient is here today as he was starting to feel ill for the past 3 days. Family was unable to lift him out of the bed. Patient was noted to be confused unable to answer questions. No history of facial weakness or upper or lower extremity weakness was noted. In the ER, patient noted to have a temperature of 98 pulse 82 respiratory rate 18 blood pressure 193/119. Labs are suggestive of a leukocytosis of 4.2 hemoglobin 12.9 platelet 196 sodium 135 potassium 3.5 BUN 22 creatinine 0.7 glucose 1:15 proBNP was 1570. UA was negative. On reassessment today patient's blood pressure was 170/110. All the home medications were resumed with increasing hydralazine to 50 3 times a day. MRI done in the past on revealed stable, chronic small vessel ischemic changes, age-related atrophy. Neurology consult placed for metabolic encephalopathy. CAT scan in the ER was negative for any acute changes suggestive of cerebral atrophy and moderate chronic small vessel ischemia ROS Constitutional: Denies chills, Denies fever, endorses lethargic, Denies weight loss Eyes: denies decreased vision, denies diplopia, denies discharge, denies pain Ears: deny: decreased hearing Ears, nose, mouth and throat: Denies dental pain, Denies headache, Denies nasal discharge, Denies nose pain Cardiovascular: Denies chest pain, Denies decreased exercise tolerance, Denies edema, Denies high blood pressure, Denies irregular heart beat, Denies palpitations, Denies paroxysmal nocturnal dyspnea, Denies rapid heart beat, Denies shortness of breath Respiratory: Denies congestion, Denies cough, Denies cough with sputum, Denies dyspnea, Denies home oxygen, Denies wheezing Gastrointestinal: Denies abdominal pain, Denies change in bowel habits, Denies coffee ground emesis, Denies early satiety, Denies excessive gas, Denies heartburn, Denies hematemesis, Denies hematochezia, Denies loss of appetite, Denies nausea, Denies vomiting Genitourinary: Denies dysuria, Denies flank pain, Denies kidney stones, Denies menorrhagia, Denies urgency, Denies urinary frequency Musculoskeletal: Endorses gait dysfunction, endorses limitation of motion, Denies morning stiffness, Denies muscle cramps Integumentary: Denies rash, Denies wounds, Denies brittle nails, Denies change in hair/nails, Denies darkening of skin Neurological: Endorses balance difficulties, Denies change in speech, Denies do uble vision, Denies gait dysfunction, Denies loss of vision, Denies motor disturbance, Denies numbness, Denies paralysis, Denies paresthesias, Denies seizures Psychiatric: Denies anxiety, Denies depression Endocrine: Denies excessive sweating, Denies excessive thirst, Denies high blood sugars, Denies palpitations Hematologic/Lymphatic: Denies easy bruising, Denies lymphadenopathy Social history Nonsmoker nonalcoholic lives with his Family history Brother 3 brothers with no significant medical problems Sr. 3 sister all alive to have high blood pressure 1 has diabetes and stroke is 81 years old on has history of tremors Father has history of myocardial infarction and at the age of 73 with history of Parkinson disease AND bone cancer Mother has history of myocardial infarction at the age of 7085 with a history of hypertension and dementia Patient has 3 sons and one daughter with no major medical problems Physical Examination Gen: This is an 85-year-old male. He is resting in bed and appears comfortable. HEENT: Head is atraumatic, normocephalic. Pupils equal, round. Sclerae is anict deysi. Left arm tremor. NECK: Supple. No JVD. No lymphadenopathy. No thyromegaly. LUNGS: Clear to auscultation. No wheezes or rhonchi. No intercostal retractions. HEART: Regular rate and rhythm. Systolic ejection murmur. ABDOMEN: Soft. Bowel sounds are present. No masses. No tenderness. EXTREMITIES: No pedal edema. No calf tenderness. NEUROLOGICAL: Patient answers questions appropriately and follows command no motor or sensory deficit noted Assessment and Plan 1. Metabolic encephalopathy, unclear etiology. History of multiple CVA and TIA in the past Consult with neurology. Swallow evaluation, PT, OT, speech therapy. 2. Hypertensive urgency. Continue Coreg 12.5 twice a day, continue losartan 100 mg daily. Hydralazine increased to 50 3 times a day 3. History of Bilateral pulmonary embolism originating from DVT right leg. Patient is on Xarelto. Patient had follow-up CAT scan and venous Doppler to assess the duration of xarelto. May need Xarelto on discharge. Patient is at high risk of recurrent PE due to being nonambulatory 4. Parkinson disease on Sinemet. Sinemet ER 25/101 tab twice a day and each daily. Mirapex milligram by mouth daily 5. History of CVA. Continue aspirin and Lipitor 40 mg daily 6. Hyperlipidemia. Home medications are Lipitor 40 mg daily, Zetia 7. Seizure disorder, follows with Dr. Byrd. Neurology consult. Continue Keppra 500 twice a day 8. Coronary artery disease status post angioplasty and stent placement. Continue Lipitor. Continue aspirin and continue Coreg twice daily 9. Benign prostatic hypertrophy with history of urinary retention that required chronic Olivo catheter. Patient is on Flomax 0.4 mg twice daily. 10. Restless leg syndrome. On Mirapex 1 mg twice daily. 11. Generalized debility with decreased lower extremity strength. Patient was getting progressively weak at home PTOT consult for possible rehab placement 12 GI prophylaxis. Pepcid 20 mg daily 12. DVT prophylaxis. Will resume Xarelto. CODE STATUS: Full code Patient to be admitted to the hospital for a minimum of 2 night stay. 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, multiple TIAs, parkinson's disease, neuralgia, neuropathy bilateral hands, legs and feet, thoracic spondylosis, prostrate cancer with surgery/chemo and radiation, UTIs, kidney stones, L eye glaucoma, PVD/bilateral lower extremity edema, caratid stenosis, aemia, bronchitis, lower GI bleed History of Any Multi-Drug Resistant Organisms: None Reported Past Surgical History: Adenoidectomy, Back Surgery, Heart Catheterization With Stent, Hernia Repair, Joint Replacement, Orthopedic Surgery, Prostate Surgery, Tonsillectomy Additional Past Surgical History / Comment(s): PCI with stent in 2012, prostate biopsies, laser vaporization of prostrate, bilateral inquinal hernia repairs, EGD/colonoscopy, supraorbital percutaneous nerve stimulator trial, epidural in jections, low back surgery, R foot hammer toe surgery, bilateral total knee replacements, bilateral cataract removals/lens implants, hemorrhoidectomy, R side of head vein biopsy, left hip arthroplasty 2 weeks ago Past Anesthesia/Blood Transfusion Reactions: No Reported Reaction Additional Past Anesthesia/Blood Transfusion Reaction / Comment(s): Pt has received blood in past without reaction. Date of Last Stent Placement:: 2012 Past Psychological History: No Psychological Hx Reported Smoking Status: Never smoker Past Alcohol Use History: None Reported Past Drug Use History: None Reported - Past Family History Brother(s) Family Medical History: No Reported History Additional Family Medical History / Comment(s): Patient has 3 brothers with no major medical problems. Sister(s) Family Medical History: Hypertension Additional Family Medical History / Comment(s): Patient has 3 sisters that are all alive. 2 have high blood pressure. One has diabetes and stroke and is 81 years old. And all have history of tremors. Son(s) Family Medical History: No Reported History Additional Family Medical History / Comment(s): Patient has 3 sons and one daughter with no major medical problems. Father Family Medical History: Myocardial Infarction ([place]) Additional Family Medical History / Comment(s): Father at age 73 with history of Parkinson's disease, bowel cancer, bone cancer. Mother Family Medical History: No Reported History, Myocardial Infarction ([place]) Additional Family Medical History / Comment(s): Mother at age 85 with history of hypertension and dementia. Medications and Allergies Home Medications Medication Instructions Recorded Confirmed Type Montelukast [Singulair] 10 mg PO HS@209909/19/15 05/13/21 History Ferrous Sulfate [Iron (65 MG 325 mg PO DAILY 07/14/18 05/13/21 History Elemental)] Latanoprost/Pf [Latanoprost 0.005% 1 drop BOTH EYES HS@209904/16/20 05/13/21 History Eye Drop] Rosuvastatin Calcium 20 mg PO HS@199904/16/20 05/13/21 History Tamsulosin [Flomax] 0.4 mg PO DAILY 04/28/20 05/13/21 History Rivaroxaban [Xarelto] 20 mg PO DAILY@1700 05/19/20 05/13/21 History Brimonidine Tartrate [Alphagan P 1 drops LEFT EYE BID 11/26/20 05/13/21 History 0.2% Ophth Soln] Cholecalciferol [Vitamin D3 (25 125 mcg PO DAILY 11/26/20 05/13/21 History Mcg = 1000 Iu)] Escitalopram [Lexapro] 10 mg PO DAILY 11/26/20 05/13/21 History Pramipexole [Mirapex] 1 mg PO DAILY@170,199911/26/20 05/13/21 History Losartan [Cozaar] 100 mg PO DAILY #30 tab 12/02/20 05/13/21 Rx Fludrocortisone [Florinef] 0.1 mg PO DAILY PRN #0 12/03/20 05/13/21 Rx Qaspyst-Smsh-Wtdw [id number] 2 tab PO Q4HR PRN 01/17/21 05/13/21 History [Excedrin] Buta/APAP/Caf/Cod [id number] 1 - 2 cap PO Q6H PRN 01/17/21 05/13/21 History [Fioricet w/Cod 04-600-03-30MG] Carbidopa-Levodopa ER 25-100Mg 1 tab PO BID@1330,1800 01/17/21 05/13/21 History [Sinemet ER 25-100] levETIRAcetam [Keppra] 500 mg PO BID 01/17/21 05/13/21 History Aspirin EC [Ecotrin Low Dose] 81 mg PO DAILY 05/13/21 05/13/21 History Carbidopa/Levodopa [Carbidopa-Levo 2 tab PO DAILY@0900 05/13/21 05/13/21 History ER 25-100 Tab] Carvedilol [Coreg] 12.5 mg PO BID 05/13/21 05/13/21 History hydrALAZINE HCL [Apresoline] 50 mg PO DAILY 05/13/21 05/13/21 History Allergies Allergy/AdvReac Type Severity Reaction Status Date / Time metoclopramide [From Reglan] AdvReac SHAKES Verified 05/13/21 10:29 oxycodone HCl AdvReac Nausea & Verified 05/13/21 10:29 [From OxyContin] Vomiting Physical Exam Vitals: Vital Signs Temp Pulse Resp BP Pulse Ox 05/13/21 08:00 80 16 170/110 97 05/13/21 06:00 75 18 175/106 97 05/13/21 05:30 74 18 162/108 99 05/13/21 05:00 75 18 168/107 96 05/13/21 04:45 76 18 149/98 95 05/13/21 04:30 76 18 153/107 95 05/13/21 04:00 75 18 155/104 97 05/13/21 03:30 78 18 155/112 97 05/13/21 03:00 77 18 159/107 96 05/13/21 02:45 76 18 151/107 96 05/13/21 02:30 77 18 170/113 97 05/13/21 02:15 74 18 169/105 98 05/13/21 02:00 78 18 156/115 96 05/13/21 01:45 77 18 161/111 97 05/13/21 01:30 78 18 176/109 95 05/13/21 01:15 77 18 171/104 95 05/13/21 01:00 78 18 162/109 96 05/13/21 00:45 78 18 180/120 97 05/13/21 00:30 77 18 171/106 96 05/13/21 00:15 76 18 174/113 94 L 05/13/21 00:00 77 18 188/116 94 L 05/12/21 23:38 98 F 82 18 193/119 96 Intake and Output 05/12/21 05/13/21 05/13/21 22:59 06:59 14:59 Other: Weight 90.718 kg Results CBC & Chem 7: 05/12/21 23:51 05/12/21 23:51 Labs: Abnormal Lab Results - Last 24 Hours (Table) 05/12/21 05/12/21 05/12/21 Range/Units 23:51 23:51 23:51 RBC 3.99 L (4.30-5.90) m/uL Hgb 12.9 L (13.0-17.5) gm/dL Hct 38.1 L (39.0-53.0) % PT 14.0 H (9.0-12.0) sec INR 1.4 H (<1.2) APTT 34.6 H (22.0-30.0) sec Sodium 135 L (137-145) mmol/L BUN 22 H (9-20) mg/dL Glucose 115 H (74-99) mg/dL Creatine Kinase 38 L (55-170) U/L
[2021-05-13] MEDS: hydrALAZINE HCL 50 MG TAB PO SCH (16:08)
[2021-05-13] MEDS: FAMOTIDINE 20 MG TAB PO SCH (16:08)
[2021-05-13] MEDS: CARBIDOPA-LEVODOPA ER 25-100MG 1 EACH TABLET.ER PO SCH ×2 (16:08→19:27)
[2021-05-13] MEDS: RIVAROXABAN 20 MG TAB PO SCH (16:59)
[2021-05-13] MEDS ORDERED: ATORVASTATIN 40 MG TAB PO SCH (20:00)
[2021-05-13] MEDS: PRAMIPEXOLE 1 MG TAB PO SCH ×3 (20:34→20:35)
[2021-05-13] MEDS ORDERED: MONTELUKAST 10 MG TAB PO SCH (21:00)
[2021-05-13] MEDS ORDERED: LATANOPROST 0.005% OPHTH DROPS 2.5 ML BTL BOTH EYES SCH (21:00)
[2021-05-14] MEDS: BRIMONIDINE TARTRATE 0.2% DROPS 5 ML BTL LEFT EYE SCH ×2 (00:31→09:14)
[2021-05-14] MEDS: hydrALAZINE HCL 50 MG TAB PO SCH ×3 (00:32→16:52)
[2021-05-14] MEDS: levETIRAcetam 500 MG TAB PO SCH ×2 (00:32→09:14)
[2021-05-14 08:10] VITALS: RESP 18
[2021-05-14] MEDS ORDERED: CARBIDOPA-LEVODOPA ER 25-100MG 1 EACH TABLET.ER PO SCH (09:00)
[2021-05-14] MEDS ORDERED: ASPIRIN 81 MG PO SCH (09:00)
[2021-05-14] MEDS: TAMSULOSIN 0.4 MG CAP.ER.24H PO SCH (09:12)
[2021-05-14] MEDS: carvediloL 12.5 MG TAB PO SCH ×2 (09:12→16:52)
[2021-05-14] MEDS: FAMOTIDINE 20 MG TAB PO SCH (09:12)
[2021-05-14] MEDS: LOSARTAN 50 MG TAB PO SCH (09:13)
[2021-05-14] MEDS: FERROUS SULFATE 325 MG TAB PO SCH (09:13)
[2021-05-14] MEDS: ESCITALOPRAM 10 MG TAB PO SCH (09:14)
[2021-05-14 09:27] LABS: Basophils # (A) 0.06 X 10*3/uL (0.00-0.10); Basophils % (A) 1.3 %; Eosinophils # (A) 0.22 X 10*3/uL (0.04-0.35); Eosinophils % (A) 4.9 %; HCT 35.8 % (39.6-50.0); HGB 11.5 g/dL (13.0-17.0); Lymphocytes # (A) 0.93 X 10*3/uL (0.90-5.00); Lymphocytes % (A) 20.9 %; MCH 31.7 pg (27.0-32.0); MCHC 32.1 g/dL (32.0-37.0); MCV 98.6 fL (80.0-97.0); Mean Platelet Volume 10.3 fL (9.5-12.2); Monocytes # (A) 0.43 X 10*3/uL (0.20-1.00); Monocytes % (A) 9.7 %; Platelet Count 200 X 10*3/uL (140-440); RBC 3.63 X 10*6/uL (4.40-5.60); RDW 12.9 % (11.5-14.5); WBC 4.45 X 10*3/uL (4.50-10.00)
[2021-05-14 10:23] LABS: African American GFR (CKD) 100.4 (60.0-200.0); Anion Gap 7.6 mmol/L (4.00-12.00); BUN/Creat Ratio 22.86 Ratio (12.00-20.00); Calcium 8.6 mg/dL (8.7-10.3); Carbon Dioxide 26.4 mmol/L (21.6-31.8); Non-African American GFR(CKD) 86.7 (60.0-200.0); Potassium 3.5 mmol/L (3.5-5.5)
[2021-05-14] MEDS ORDERED: MAGNESIUM HYDROXIDE 2,400 MG/10 ML CUP PO PRN (10:43)
[2021-05-14] MEDS: CARBIDOPA-LEVODOPA ER 25-100MG 1 EACH TABLET.ER PO SCH ×2 (13:36→16:52)
[2021-05-14 15:05] VITALS: BP 138/78; PULSE 81; TEMP 98
--- NOTE | 2021-05-14 15:16 | P.CNNES ---
History of Present Illness Consult date: 05/14/21 Requesting physician: Nida Landin Reason for Consult: Metabolic encephalopathy History of Present Illness: Patient is a 85-year-old male came to the hospital by ambulance at 11:30 PM on 05/12/2021. As per EMS flow sheet, when they arrived, patient was laying in bed, and family was mentioning about patient's mental confusion and weakness. Patient was alert and oriented 2 has patent airway, has permanent left-sided facial droop from previous CVA. Patient was prescribed new blood pressure medication that morning. Patient was complaining of a headache. Family has mentioned that the signs and symptoms are usually an indication of a UTI, but he is afebrile. Patient's vitals at the scene was blood pressure 168/101, pulse 82, respiration 18, as blood sugar 136. Vital signs on arrival blood pressure 161/111, pulse rate 77, temperature 98.3. CT head showed cerebral atrophy and moderate chronic small vessel ischemia. Chest x-ray showed no active cardiopulmonary disease. EKG shows sinus rhythm with first-degree AV block. Voltage criteria for LVH. Prolonged QT. Patient's blood test shows normal WBC, hemoglobin 12.9, platelets 196. INR 1.4. PTT 34.6. Sodium was 135, but now 141. Renal functions, hepatic panel normal. Troponin negative. TSH normal. UA is completely negative. I spoke to patient's on the phone. She states that she called the ambulance because his blood pressure was running very high greater than 200/100. He was also generalized weak complaining of headache. No seizures, no syncope, no fainting, no strokelike symptoms otherwise. Patient is well known to me from previous admissions to the hospital, when he pressed presented with possible partial seizure with altered mental status. 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 Patient was placed on Vimpat 200 mg twice a day and Keppra 1500 mg twice a day. His dose was tapered down to Keppra of 7 or 50 mg twice a day and Vimpat 150 mA twice a day at the time of discharge. Patient currently taking Keppra 500 mg twice a day. Patient is not on Vimpat at this time. I spoke to patient's , and she concurred that patient is only on Keppra 500 mg twice a day, not on Vimpat. She admits that patient has not had any seizures since last admission for seizures. At present patient denies any headache, any focal symptoms. Review of Systems Completely unremarkable. Denies headache. 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, multiple TIAs, parkinson's disease, neuralgia, neuropathy bilateral hands, legs and feet, thoracic spondylosis, prostrate cancer with surgery/chemo and radiation, UTIs, kidney stones, L eye glaucoma, PVD/bilateral lower extremity edema, caratid stenosis, aemia, bronchitis, lower GI bleed History of Any Multi-Drug Resistant Organisms: None Reported Past Surgical History: Adenoidectomy, Back Surgery, Heart Catheterization With Stent, Hernia Repair, Joint Replacement, Orthopedic Surgery, Prostate Surgery, Tonsillectomy Additional Past Surgical History / Comment(s): PCI with stent in 2012, prostate biopsies, laser vaporization of prostrate, bilateral inquinal hernia repairs, EGD/colonoscopy, supraorbital percutaneous nerve stimulator trial, epidural injections, low back surgery, R foot hammer toe surgery, bilateral total knee replacements, bilateral cataract removals/lens implants, hemorrhoidectomy, R side of head vein biopsy, left hip arthroplasty 2 weeks ago Past Anesthesia/Blood Transfusion Reactions: No Reported Reaction Additional Past Anesthesia/Blood Transfusion Reaction / Comment(s): Pt has received blood in past without reaction. Date of Last Stent Placement:: 2012 Past Psychological History: No Psychological Hx Reported Smoking Status: Never smoker Past Alcohol Use History: None Reported Past Drug Use History: None Reported - Past Family History Brother(s) Family Medical History: No Reported History Additional Family Medical History / Comment(s): Patient has 3 brothers with no major medical problems. Sister(s) Family Medical History: Hypertension Additional Family Medical History / Comment(s): Patient has 3 sisters that are all alive. 2 have high blood pressure. One has diabetes and stroke and is 81 years old. And all have history of tremors. Son(s) Family Medical History: No Reported History Additional Family Medical History / Comment(s): Patient has 3 sons and one daughter with no major medical problems. Father Family Medical History: Myocardial Infarction ([place]) Additional Family Medical History / Comment(s): Father at age 73 with history of Parkinson's disease, bowel cancer, bone cancer. Mother Family Medical History: No Reported History, Myocardial Infarction ([place]) Additional Family Medical History / Comment(s): Mother at age 85 with history of hypertension and dementia. Medications and Allergies Home Medications Medication Instructions Recorded Confirmed Type Montelukast [Singulair] 10 mg PO HS@209909/19/15 05/13/21 History Ferrous Sulfate [Iron (65 MG 325 mg PO DAILY 07/14/18 05/13/21 History Elemental)] Latanoprost/Pf [Latanoprost 0.005% 1 drop BOTH EYES HS@209904/16/20 05/13/21 History Eye Drop] Rosuvastatin Calcium 20 mg PO HS@199904/16/20 05/13/21 History Tamsulosin [Flomax] 0.4 mg PO DAILY 04/28/20 05/13/21 History Rivaroxaban [Xarelto] 20 mg PO DAILY@17005/19/20 05/13/21 History Brimonidine Tartrate [Alphagan P 1 drops LEFT EYE BID 11/26/20 05/13/21 History 0.2% Ophth Soln] Cholecalciferol [Vitamin D3 (25 125 mcg PO DAILY 11/26/20 05/13/21 History Mcg = 1000 Iu)] Escitalopram [Lexapro] 10 mg PO DAILY 11/26/20 05/13/21 History Pramipexole [Mirapex] 1 mg PO DAILY@11/26/20 05/13/21 History Losartan [Cozaar] 100 mg PO DAILY #30 tab 12/02/20 05/13/21 Rx Fludrocortisone [Florinef] 0.1 mg PO DAILY PRN #0 12/03/20 05/13/21 Rx Odsgtns-Zzfm-Lwru [id number] 2 tab PO Q4HR PRN 01/17/21 05/13/21 History [Excedrin] Buta/APAP/Caf/Cod [id number] 1 - 2 cap PO Q6H PRN 01/17/21 05/13/21 History [Fioricet w/Cod 65-732-28-30MG] Carbidopa-Levodopa ER 25-100Mg 1 tab PO BID@1330,1800 01/17/21 05/13/21 History [Sinemet ER 25-100] levETIRAcetam [Keppra] 500 mg PO BID 01/17/21 05/13/21 History Aspirin EC [Ecotrin Low Dose] 81 mg PO DAILY 05/13/21 05/13/21 History Carbidopa/Levodopa [Carbidopa-Levo 2 tab PO DAILY@0900 05/13/21 05/13/21 History ER 25-100 Tab] Carvedilol [Coreg] 12.5 mg PO BID 05/13/21 05/13/21 History hydrALAZINE HCL [Apresoline] 50 mg PO DAILY 05/13/21 05/13/21 History Allergies Allergy/AdvReac Type Severity Reaction Status Date / Time metoclopramide [From Reglan] AdvReac SHAKES Verified 05/13/21 10:29 oxycodone HCl AdvReac Nausea & Verified 05/13/21 10:29 [From OxyContin] Vomiting Physical Examination - Vital Signs Vital Signs: Vital Signs Temp Pulse Pulse Resp BP BP Pulse Ox 05/14/21 11:27 95 05/14/21 08:00 80 18 05/14/21 07:00 98.5 F 80 18 137/97 95 05/14/21 02:34 97.9 F 79 16 133/77 93 L 05/13/21 21:32 98.3 F 75 16 141/85 92 L 05/13/21 20:05 64 16 138/68 98 05/13/21 18:45 61 16 96/64 98 05/13/21 18:00 60 16 106/67 98 05/13/21 13:02 75 18 155/109 98 Intake and Output 05/13/21 05/14/21 05/14/21 22:59 06:59 14:59 Output Total 100 Balance -100 Output: Urine 100 Other: # Voids 1 Patient is an elderly male, very pleasant, in no acute distress. Patient is alert awake knows his name, his age, and that he is in [facility], states is in [facility]. He knows the name of the current president. He states it is June 2021. Speech and language functions are normal. Attention, concentration intact and fund of knowledge is borderline. On cranial examination, pupils are equal, round and reacting to light, visual leon are full on confrontation with no neglect on double simultaneous stimulation, extraocular muscles are intact with no nystagmus. Face is symmetric, tongue protrudes to the midline. Palatal elevation and sensation normal, hearing and shoulder shrug normal, facial sensation normal. Shoulder shrug normal. On muscle strength testing, there is no pronator drift and the strength is normal in arms and legs distally and proximally. Deep tendon reflexes are trace in the upper limbs, absent in the lower limbs and plantars downgoing. Sensory to touch is equal with no neglect on double simultaneous stimulation. Cerebellar function showed no ataxia for [id number]-foly testing. Mild tremulousness noted. No dysdiadochokinesia. Tone and bulk of muscles normal. Gait deferred. On general examination, there is no carotid bruit or murmur, S1-S2 audible. Abdomen is soft nontender. Chest is clear. Peripheral pulses are present. No edema. Results - Laboratory Findings CBC and BMP: 05/14/21 06:14 05/14/21 06:14 Abnormal Lab Findings: Abnormal Labs 05/12/21 05/12/21 05/12/21 23:51 23:51 23:51 WBC RBC 3.99 L Hgb 12.9 L Hct 38.1 L MCV PT 14.0 H INR 1.4 H APTT 34.6 H Sodium 135 L BUN 22 H BUN/Creatinine Ratio Glucose 115 H Calcium Creatine Kinase 38 L 05/14/21 05/14/21 06:14 06:14 WBC 4.45 L RBC 3.63 L Hgb 11.5 L Hct 35.8 L MCV 98.6 H PT INR APTT Sodium BUN BUN/Creatinine Ratio 22.86 H Glucose Calcium 8.6 L Creatine Kinase Assessment and Plan Assessment: * Headache, mild altered mental status, generalized weakness, likely because of accelerated hypertension. Denies any focal symptoms. Clinical examination completely normal. No evidence of central ischemia. * Hypertension * Seizure disorder Plan: * Continue current medications including aspirin, Xarelto and statins. * Continue Keppra 500 mg twice a day. * Patient's neurological examination is nonfocal. No other neurological workup indicated. * Treatment of hypertension as per IM. * We will sign off. Please reconsult if any other neurological concerns.
[2021-05-14] MEDS: PRAMIPEXOLE 1 MG TAB PO SCH (16:52)
[2021-05-14] MEDS: RIVAROXABAN 20 MG TAB PO SCH (16:52)
--- NOTE | 2021-05-14 17:30 | P.DS ---
Providers Date of admission: 05/14/21 10:44 Attending physician: Louis Lawson Consults: 05/13/21 11:45 Consult Physician Routine Consulting Provider: Xi Baez Consult Reason/Comments: metabolic encephalopathy Do you want consulting provider notified?: Yes Primary care physician: Louis Lawson [place] [facility] Course: This is an 85-year-old male patient of Dr. 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 He was readmitted from April 28 through May 06, 2020, at which time he was seen by multiple consultants including neurology for seizure activity and adjustments were made on Keppra and patient was started on Vimpat. He was also treated for acute catheter associated urinary tract infection, urinary retention, hematuria and was seen by Dr. Gaspar. Patient was seen by Dr. Reina for hyponatremia with SIADH. Patient was stabilized and discharged back to [facility]. Patient is currently seeing Dr. Byrd and is stable on the current seizure medications. Patient is here today as he was starting to feel ill for the past 3 days. Family was unable to lift him out of the bed. Patient was noted to be confused unable to answer questions. No history of facial weakness or upper or lower extremity weakness was noted. In the ER, patient noted to have a temperature of 98 pulse 82 respiratory rate 18 blood pressure 193/119. Labs are suggestive of a leukocytosis of 4.2 hemoglobin 12.9 platelet 196 sodium 135 potassium 3.5 BUN 22 creatinine 0.7 glucose 1:15 proBNP was 1570. UA was negative. On reassessment today patient's blood pressure was 170/110. All the home medications were resumed with increasing hydralazine to 50 3 times a day. MRI done in the past on revealed stable, chronic small vessel ischemic changes, age-related atrophy. Neurology consult placed for metabolic encephalopathy. CAT scan in the ER was negative for any acute changes suggestive of cerebral atrophy and moderate chronic small vessel ischemia 05/14 patient examined bedside. He denies any dizziness chest pain or shortness of breath. He does have some headache but denies any confusion or change in mental status. at bedside would like to take patient home. Family updated that patient need to see neurology and physical therapy for assessment of patient's stability before patient can be discharged. PT evaluated the patient and recommended subacute rehab neurology evaluate the patient suggests patient's change in mental status is related to hypertension but no stroke or seizure is suspected. Blood pressure is better controlled on current regimen vitals are stable blood pressure 138/78 afebrile pulse 81 respiratory rate 18 oxygen saturation 98% on room air. Hemoglobin 11.5, creatinine 0.7. Patient will be discharged home with home care as she refuses subacute rehab for her . ROS Constitutional: Denies chills, Denies fever, endorses lethargic, Denies weight loss Eyes: denies decreased vision, denies diplopia, denies discharge, denies pain Ears: deny: decreased hearing Ears, nose, mouth and throat: Denies dental pain, Denies headache, Denies nasal discharge, Denies nose pain Cardiovascular: Denies chest pain, Denies decreased exercise tolerance, Denies edema, Denies high blood pressure, Denies irregular heart beat, Denies palpitations, Denies paroxysmal nocturnal dyspnea, Denies rapid heart beat, Denies shortness of breath Respiratory: Denies congestion, Denies cough, Denies cough with sputum, Denies dyspnea, Denies home oxygen, Denies wheezing Gastrointestinal: Denies abdominal pain, Denies change in bowel habits, Denies coffee ground emesis, Denies early satiety, Denies excessive gas, Denies heartburn, Denies hematemesis, Denies hematochezia, Denies loss of appetite, Denies nausea, Denies vomiting Genitourinary: Denies dysuria, Denies flank pain, Denies kidney stones, Denies menorrhagia, Denies urgency, Denies urinary frequency Musculoskeletal: Endorses gait dysfunction, endorses limitation of motion, Denies morning stiffness, Denies muscle cramps Integumentary: Denies rash, Denies wounds, Denies brittle nails, Denies change in hair/nails, Denies darkening of skin Neurological: Endorses balance difficulties, Denies change in speech, Denies double vision, Denies gait dysfunction, Denies loss of vision, Denies motor disturbance, Denies numbness, Denies paralysis, Denies paresthesias, Denies seizures Physical Examination Gen: This is an 85-year-old male. He is resting in bed and appears comfortable. HEENT: Head is atraumatic, normocephalic. Pupils equal, round. Sclerae is anicteric. Left arm tremor. NECK: Supple. No JVD. No lymphadenopathy. No thyromegaly. LUNGS: Clear to auscultation. No wheezes or rhonchi. No intercostal retractions. HEART: Regular rate and rhythm. Systolic ejection murmur. ABDOMEN: Soft. Bowel sounds are present. No masses. No tenderness. EXTREMITIES: No pedal edema. No calf tenderness. NEUROLOGICAL: Patient answers questions appropriately and follows command no motor or sensory deficit noted Assessment and Plan 1. Metabolic encephalopathy, secondary to hypertensive urgency History of multiple CVA and TIA in the past 2. Hypertensive urgency. 3. History of Bilateral pulmonary embolism originating from DVT right leg. 4. Parkinson disease on Sinemet. 5. History of CVA. 6. Hyperlipidemia. 7. Seizure disorder, follows with Dr. Byrd. 8. Coronary artery disease status post angioplasty and stent placement. 9. Benign prostatic hypertrophy with history of urinary retention that required chronic Olivo catheter. 10. Restless leg syndrome. 11. Generalized debility with decreased lower extremity strength. P Disposition home with home care Patient Condition at Discharge: Fair Plan - Discharge Summary New Discharge Prescriptions: New hydrALAZINE HCL [Apresoline] 50 mg PO TID #90 tab Continue Montelukast [Singulair] 10 mg PO HS@2100 Ferrous Sulfate [Iron (65 MG Elemental)] 325 mg PO DAILY Rosuvastatin Calcium 20 mg PO HS@2000 Latanoprost/Pf [Latanoprost 0.005% Eye Drop] 1 drop BOTH EYES HS@2100 Tamsulosin [Flomax] 0.4 mg PO DAILY Rivaroxaban [Xarelto] 20 mg PO DAILY@1700 Brimonidine Tartrate [Alphagan P 0.2% Ophth Soln] 1 drops LEFT EYE BID Pramipexole [Mirapex] 1 mg PO DAILY@1700,2000 Cholecalciferol [Vitamin D3 (25 Mcg = 1000 Iu)] 125 mcg PO DAILY Escitalopram [Lexapro] 10 mg PO DAILY Losartan [Cozaar] 100 mg PO DAILY #30 tab Fludrocortisone [Florinef] 0.1 mg PO DAILY PRN #0 PRN Reason: Low BP levETIRAcetam [Keppra] 500 mg PO BID Carbidopa/Levodopa [Carbidopa-Levo ER 25-100 Tab] 2 tab PO DAILY@0900 hydrALAZINE HCL [Apresoline] 50 mg PO DAILY Aspirin EC [Ecotrin Low Dose] 81 mg PO DAILY Ebvonxe-Lcvd-Mcoj [id number] [Excedrin] 2 tab PO Q4HR PRN PRN Reason: Migraine Headache Carbidopa-Levodopa ER 25-100Mg [Sinemet CR 25-100 mg] 1 tab PO BID@1330,1800 Buta/APAP/Caf/Cod 41-460-46-30 [Fioricet w/Cod 33-546-01-30MG] 1 - 2 cap PO Q6H PRN PRN Reason: Migraine Headache Carvedilol [Coreg] 12.5 mg PO BID Discharge Medication List Montelukast [Singulair] 10 mg PO HS@209909/19/15 [History] Ferrous Sulfate [Iron (65 MG Elemental)] 325 mg PO DAILY 07/14/18 [History] Latanoprost/Pf [Latanoprost 0.005% Eye Drop] 1 drop BOTH EYES HS@209904/16/20 [History] Rosuvastatin Calcium 20 mg PO HS@199904/16/20 [History] Tamsulosin [Flomax] 0.4 mg PO DAILY 04/28/20 [History] Rivaroxaban [Xarelto] 20 mg PO DAILY@17005/19/20 [History] Brimonidine Tartrate [Alphagan P 0.2% Ophth Soln] 1 drops LEFT EYE BID 11/26/20 [History] Cholecalciferol [Vitamin D3 (25 Mcg = 1000 Iu)] 125 mcg PO DAILY 11/26/20 [History] Escitalopram [Lexapro] 10 mg PO DAILY 11/26/20 [History] Pramipexole [Mirapex] 1 mg PO DAILY@1699,199911/26/20 [History] Losartan [Cozaar] 100 mg PO DAILY #30 tab 12/02/20 [Rx] Fludrocortisone [Florinef] 0.1 mg PO DAILY PRN #0 12/03/20 [Rx] Ljnkkdp-Hywg-Cymq [id number] [Excedrin] 2 tab PO Q4HR PRN 01/17/21 [History] Buta/APAP/Caf/Cod [id number] [Fioricet w/Cod 71-498-70-30MG] 1 - 2 cap PO Q6H PRN 01/17/21 [History] Carbidopa-Levodopa ER 25-100Mg [Sinemet CR 25-100 mg] 1 tab PO BID@1330,1800 01/17/21 [History] levETIRAcetam [Keppra] 500 mg PO BID 01/17/21 [History] Aspirin EC [Ecotrin Low Dose] 81 mg PO DAILY 05/13/21 [History] Carbidopa/Levodopa [Carbidopa-Levo ER 25-100 Tab] 2 tab PO DAILY@0900 05/13/21 [History] Carvedilol [Coreg] 12.5 mg PO BID 05/13/21 [History] hydrALAZINE HCL [Apresoline] 50 mg PO DAILY 05/13/21 [History] hydrALAZINE HCL [Apresoline] 50 mg PO TID #90 tab 05/14/21 [Rx] Follow up Appointment(s)/Referral(s): Louis Lawson MD [Primary Care Provider] - 1-2 days Discharge Disposition: HOME WITH HOME HEALTH SERVICES
== END 2021-05-14 18:00 | disposition home health service (06) | DRG 304 ==
LOC: EC 23:37 → 1SOBS 05-13 01:29 → 6NMEDSUR 05-13 13:47 → 3SCARD 05-13 17:33 → 6NMEDSUR 05-13 20:23 → OBSVTOIN 05-14 10:44
PROVIDERS: ADMIT Internal Medicine Geriatric Medicine; ATTEND Internal Medicine Geriatric Medicine
DX: I16.0 Hypertensive urgency (principal); G93.41 Metabolic encephalopathy; N39.0 Urinary tract infection, site not specified; T83.518A Infection and inflammatory reaction due to other urinary catheter, initial encounter; E22.2 Syndrome of inappropriate secretion of antidiuretic hormone; F05 Delirium due to known physiological condition; I10 Essential (primary) hypertension; E78.5 Hyperlipidemia, unspecified; G20 Parkinson's disease; G25.81 Restless legs syndrome; G40.909 Epilepsy, unspecified, not intractable, without status epilepticus; H91.90 Unspecified hearing loss, unspecified ear; I73.9 Peripheral vascular disease, unspecified; I25.10 Atherosclerotic heart disease of native coronary artery without angina pectoris; I44.0 Atrioventricular block, first degree; N40.1 Benign prostatic hyperplasia with lower urinary tract symptoms; M15.9 Polyosteoarthritis, unspecified; R33.8 Other retention of urine; R31.9 Hematuria, unspecified; I45.81 Long QT syndrome; I69.392 Facial weakness following cerebral infarction; Y84.6 Urinary catheterization as the cause of abnormal reaction of the patient, or of later complication, without mention of misadventure at the time of the procedure; Z79.01 Long term (current) use of anticoagulants; Z79.52 Long term (current) use of systemic steroids; Z79.82 Long term (current) use of aspirin; Z79.899 Other long term (current) drug therapy; Z86.711 Personal history of pulmonary embolism; Z86.718 Personal history of other venous thrombosis and embolism; Z95.5 Presence of coronary angioplasty implant and graft; Z96.1 Presence of intraocular lens; Z96.642 Presence of left artificial hip joint; Z87.19 Personal history of other diseases of the digestive system; Z96.653 Presence of artificial knee joint, bilateral; Z88.5 Allergy status to narcotic agent; Z88.8 Allergy status to other drugs, medicaments and biological substances
CPT/HCPCS: 36415; 70450; 71046; 80048; 80053; 81003; 82550; 83605; 83735; 83880; 84100; 84443; 84484; 85025; 85610; 85730; 93005; 94760; 96361; 96374; 99285

== ENCOUNTER → 2021-06-13 | Outpatient (CLI) | payer MEDICARE ==
[2021-06-13 19:02] LABS: HCT 36.3 % (39.6-50.0); HGB 11.5 g/dL (13.0-17.0); MCH 30.6 pg (27.0-32.0); MCHC 31.7 g/dL (32.0-37.0); MCV 96.5 fL (80.0-97.0); Mean Platelet Volume 10.5 fL (9.5-12.2); Platelet Count 208 X 10*3/uL (140-440); RBC 3.76 X 10*6/uL (4.40-5.60); RDW 12.7 % (11.5-14.5); WBC 5.16 X 10*3/uL (4.50-10.00)
[2021-06-14 00:19] LABS: ALT <8 U/L (10-49); AST 20 U/L (14-35); African American GFR (CKD) 90.6 (60.0-200.0); Albumin/Globulin Ratio 2.28 (1.60-3.17); Alkaline Phosphatase 96 U/L (41-126); BUN/Creat Ratio 25.56 Ratio (12.00-20.00); Calcium 9.2 mg/dL (8.7-10.3); Carbon Dioxide 26.9 mmol/L (21.6-31.8); Chloride 107 mmol/L (96-109); Globulin 1.8 g/dL (1.6-3.3); Glucose 97 mg/dL (70-110); Non-African American GFR(CKD) 78.2 (60.0-200.0); Potassium 3.3 mmol/L (3.5-5.5); Sodium 142 mmol/L (135-145); Total Bilirubin 0.5 mg/dL (0.3-1.2); Total Protein 5.9 g/dL (6.2-8.2)
== END | disposition home or self-care (01) ==
LOC: LABWHC1 12:21
PROVIDERS: ATTEND Psychiatry & Neurology Neurology
DX: D64.9 Anemia, unspecified (principal); R53.1 Weakness; R51.9 Headache, unspecified; R53.83 Other fatigue
CPT/HCPCS: 36415; 80053; 85027

== ENCOUNTER 2021-09-26 10:46 | Inpatient (IN) | payer MEDICARE ==
[2021-09-26] MEDS ORDERED: ALBUTEROL HFA INHALER INHALATION PRN (11:19)
[2021-09-26] MEDS ORDERED: ALBUTEROL HFA INHALER INHALATION STA (11:19)
[2021-09-26] MEDS ORDERED: SODIUM CHLORIDE 0.9% 500 ML 500 ML IV STA (11:22)
[2021-09-26] MEDS ORDERED: ACETAMINOPHEN TAB 500 MG TAB PO STA (11:22)
[2021-09-26] MEDS ORDERED: SODIUM CHLORIDE 0.9% 1,000 ML IV STA (11:22)
--- NOTE | 2021-09-26 11:22 | ED ---
General Adult HPI - General Chief complaint: Shortness of Breath Stated complaint: Covid + Time Seen by Provider: 09/26/21 10:49 Source: patient, EMS, RN notes reviewed Mode of arrival: EMS Limitations: no limitations - History of Present Illness Initial comments: Patient is a pleasant 85-year-old male presenting to the emergency Department with cough and fatigue. Onset of symptoms was around a week ago. Patient tested positive for COVID-19 infection 3 days ago. Patient does have cough productive sputum. Patient denies shortness of breath. Patient has had some nausea. Patient has had significant fatigue and some subjective fevers. Oxygen saturation was 89% per EMS. Patient has been vaccinated. - Related Data Home Medications Medication Instructions Recorded Confirmed Montelukast [Singulair] 10 mg PO HS@209909/19/15 09/26/21 Ferrous Sulfate [Iron (65 MG 325 mg PO DIRECTED 07/14/18 09/26/21 Elemental)] Latanoprost/Pf [Latanoprost 0.005% 1 drop BOTH EYES HS@209904/16/20 09/26/21 Eye Drop] Rosuvastatin Calcium 20 mg PO HS@199904/16/20 09/26/21 Tamsulosin [Flomax] 0.4 mg PO DAILY 04/28/20 09/26/21 Rivaroxaban [Xarelto] 20 mg PO DAILY@169905/19/20 09/26/21 Brimonidine Tartrate [Alphagan P 1 drops LEFT EYE BID 11/26/20 09/26/21 0.2% Ophth Soln] Cholecalciferol [Vitamin D3 (25 125 mcg PO DAILY 11/26/20 09/26/21 Mcg = 1000 Iu)] Escitalopram [Lexapro] 10 mg PO DAILY 11/26/20 09/26/21 Pramipexole [Mirapex] 1 mg PO DAILY@11/26/20 09/26/21 Buta/APAP/Caf/Cod 80-707-16-30 1 - 2 cap PO Q6H PRN 01/17/21 09/26/21 [Fioricet w/Cod 78-936-61-30MG] Carbidopa-Levodopa ER 25-100Mg 2 tab PO TID 01/17/21 09/26/21 [Sinemet CR 25-100 mg] levETIRAcetam [Keppra] 500 mg PO BID 01/17/21 09/26/21 Aspirin EC [Ecotrin Low Dose] 81 mg PO DAILY 05/13/21 09/26/21 Carvedilol [Coreg] 12.5 mg PO BID 05/13/21 09/26/21 Fludrocortisone [Florinef] 0.1 mg PO DAILY 09/26/21 09/26/21 Losartan Potassium 100 mg PO DAILY 09/26/21 09/26/21 Potassium Chloride ER [K-Dur 10] 10 meq PO HS 09/26/21 09/26/21 Timolol 0.5% Ophth Soln [Timoptic 1 drop BOTH EYES DAILY 09/26/21 09/26/21 0.5% Ophth Soln] amLODIPine [Norvasc] 5 mg PO DAILY 09/26/21 09/26/21 hydrALAZINE HCL [Apresoline] 25 mg PO BID 09/26/21 09/26/21 Allergies Allergy/AdvReac Type Severity Reaction Status Date / Time metoclopramide [From Reglan] AdvReac SHAKES Verified 09/26/21 12:23 oxycodone HCl AdvReac Nausea & Verified 09/26/21 12:23 [From OxyContin] Vomiting Review of Systems ROS Statement: Those systems with pertinent positive or pertinent negative responses have been documented in the HPI. ROS Other: All systems not noted in ROS Statement are negative. Constitutional: Reports: chills Eyes: Denies: eye pain ENT: Denies: ear pain Respiratory: Reports: cough. 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, multiple TIAs, parkinson's disease, neuralgia, neuropathy bilateral hands, legs and feet, thoracic spondylosis, prostrate cancer with surgery/chemo and radiation, UTIs, kidney stones, L eye glaucoma, PVD/bilateral lower extremity edema, caratid stenosis, aemia, bronchitis, lower GI bleed History of Any Multi-Drug Resistant Organisms: None Reported Past Surgical History: Adenoidectomy, Back Surgery, Heart Catheterization With Stent, Hernia Repair, Joint Replacement, Orthopedic Surgery, Prostate Surgery, Tonsillectomy Additional Past Surgical History / Comment(s): PCI with stent in 2012, prostate biopsies, laser vaporization of prostrate, bilateral inquinal hernia repairs, EGD/colonoscopy, supraorbital percutaneous nerve stimulator trial, epidural injections, low back surgery, R foot hammer toe surgery, bilateral total knee replacements, bilateral cataract removals/lens implants, hemorrhoidectomy, R side of head vein biopsy, left hip arthroplasty 2 weeks ago Past Anesthesia/Blood Transfusion Reactions: No Reported Reaction Additional Past Anesthesia/Blood Transfusion Reaction / Comment(s): Pt has received blood in past without reaction. Date of Last Stent Placement:: 2012 Past Psychological History: No Psychological Hx Reported Smoking Status: Never smoker Past Alcohol Use History: None Reported Past Drug Use History: None Reported - Past Family History Brother(s) Family Medical History: No Reported History Additional Family Medical History / Comment(s): Patient has 3 brothers with no major medical problems. Sister(s) Family Medical History: Hypertension Additional Family Medical History / Comment(s): Patient has 3 sisters that are a ll alive. 2 have high blood pressure. One has diabetes and stroke and is 81 years old. And all have history of tremors. Son(s) Family Medical History: No Reported History Additional Family Medical History / Comment(s): Patient has 3 sons and one daughter with no major medical problems. Father Family Medical History: Myocardial Infarction ([place]) Additional Family Medical History / Comment(s): Father at age 73 with history of Parkinson's disease, bowel cancer, bone cancer. Mother Family Medical History: No Reported History, Myocardial Infarction ([place]) Additional Family Medical History / Comment(s): Mother at age 85 with history of hypertension and dementia. General Exam Limitations: no limitations General appearance: alert, in no apparent distress Head exam: Present: normocephalic Eye exam: Present: normal appearance Neck exam: Present: normal inspection Respiratory exam: Present: normal lung sounds bilaterally Cardiovascular Exam: Present: regular rate, normal rhythm GI/Abdominal exam: Present: soft. Absent: tenderness Extremities exam: Present: normal inspection. Absent: pedal edema, calf tenderness Neurological exam: Present: alert. Absent: motor sensory deficit Psychiatric exam: Present: normal affect, normal mood Skin exam: Present: normal color Course Vital Signs 09/26/21 09/26/21 09/26/21 10:49 10:58 11:06 Temperature 99.0 F Pulse Rate 87 Respiratory 20 20 Rate Blood Pressure 165/98 O2 Sat by Pulse 96 89 L Oximetry 09/26/21 09/26/21 11:07 12:48 Temperature Pulse Rate 84 Respiratory 18 Rate Blood Pressure 143/88 O2 Sat by Pulse 93 L 98 Oximetry EKG Findings - EKG Comments: EKG Findings:: Sinus rhythm rate of 86. For screening AV block FL 208. QRS 98. QT 414. QTC 495. Left axis. LVH criteria. PVC present. No acute ST change. Medical Decision Making - Medical Decision Making Patient reevaluated and resting comfortably in bed. Patient was hypoxic with 89 sat on room air. Patient updated on results and plan. Case was discussed with Dr. Lawson, who will admit his patient. - Lab Data Result diagrams: 09/26/21 11:23 09/26/21 11:23 Lab Results 09/26/21 09/26/21 09/26/21 Range/Units 11:23 11:23 11:23 WBC 9.3 (3.8-10.6) k/uL RBC 3.67 L (4.30-5.90) m/uL Hgb 11.5 L (13.0-17.5) gm/dL Hct 34.8 L (39.0-53.0) % MCV 94.9 (80.0-100.0) fL MCH 31.4 (25.0-35.0) pg MCHC 33.1 (31.0-37.0) g/dL RDW 13.2 (11.5-15.5) % Plt Count 140 L (150-450) k/uL MPV 8.1 Neutrophils % 85 % Lymphocytes % 12 % Monocytes % 3 % Eosinophils % 0 % Basophils % 0 % Neutrophils # 7.8 H (1.3-7.7) k/uL Lymphocytes # 1.1 (1.0-4.8) k/uL Monocytes # 0.3 (0-1.0) k/uL Eosinophils # 0.0 (0-0.7) k/uL Basophils # 0.0 (0-0.2) k/uL PT 12.1 H (9.0-12.0) sec INR 1.2 H (<1.2) APTT 33.7 H (22.0-30.0) sec Sodium 133 L (137-145) mmol/L Potassium 3.2 L (3.5-5.1) mmol/L Chloride 101 (98-107) mmol/L Carbon Dioxide 24 (22-30) mmol/L Anion Gap 8 mmol/L BUN 19 (9-20) mg/dL Creatinine 0.63 L (0.66-1.25) mg/dL Est GFR (CKD-EPI)AfAm >90 (>60 ml/min/1.73 sqM) Est GFR (CKD-EPI)NonAf >90 (>60 ml/min/1.73 sqM) Glucose 104 H (74-99) mg/dL Plasma Lactic Acid Rufino (0.7-2.0) mmol/L Calcium 8.1 L (8.4-10.2) mg/dL Magnesium 1.8 (1.6-2.3) mg/dL Total Bilirubin 0.6 (0.2-1.3) mg/dL AST 42 (17-59) U/L ALT 14 (4-49) U/L Alkaline Phosphatase 76 (38-126) U/L Lactate Dehydrogenase 785 H (313-618) U/L C-Reactive Protein 15.8 H (<1.0) mg/dL Total Protein 5.7 L (6.3-8.2) g/dL Albumin 3.1 L (3.5-5.0) g/dL 09/26/21 Range/Units 11:23 WBC (3.8-10.6) k/uL RBC (4.30-5.90) m/uL Hgb (13.0-17.5) gm/dL Hct (39.0-53.0) % MCV (80.0-100.0) fL MCH (25.0-35.0) pg MCHC (31.0-37.0) g/dL RDW (11.5-15.5) % Plt Count (150-450) k/uL MPV Neutrophils % % Lymphocytes % % Monocytes % % Eosinophils % % Basophils % % Neutrophils # (1.3-7.7) k/uL Lymphocytes # (1.0-4.8) k/uL Monocytes # (0-1.0) k/uL Eosinophils # (0-0.7) k/uL Basophils # (0-0.2) k/uL PT (9.0-12.0) sec INR (<1.2) APTT (22.0-30.0) sec Sodium (137-145) mmol/L Potassium (3.5-5.1) mmol/L Chloride (98-107) mmol/L Carbon Dioxide (22-30) mmol/L Anion Gap mmol/L BUN (9-20) mg/dL Creatinine (0.66-1.25) mg/dL Est GFR (CKD-EPI)AfAm (>60 ml/min/1.73 sqM) Est GFR (CKD-EPI)NonAf (>60 ml/min/1.73 sqM) Glucose (74-99) mg/dL Plasma Lactic Acid Rufino 0.9 (0.7-2.0) mmol/L Calcium (8.4-10.2) mg/dL Magnesium (1.6-2.3) mg/dL Total Bilirubin (0.2-1.3) mg/dL AST (17-59) U/L ALT (4-49) U/L Alkaline Phosphatase (38-126) U/L Lactate Dehydrogenase (313-618) U/L C-Reactive Protein (<1.0) mg/dL Total Protein (6.3-8.2) g/dL Albumin (3.5-5.0) g/dL - Radiology Data Radiology results: image reviewed (X-ray shows mild atelectasis/infiltrate) Disposition Clinical Impression: COVID-19 Disposition: ADMITTED IP TO THIS [facility] Is patient prescribed a controlled substance at d/c from ED?: No Referrals: Louis Lawson MD [Primary Care Provider] - 1-2 days Decision Time: 14:01
[2021-09-26] MEDS ORDERED: ONDANSETRON 4 MG/2 ML VIAL IVP STA (11:37)
[2021-09-26 11:45] LABS: Basophils % (A) 0 %; Eosinophils % (A) 0 %; HCT 34.8 % (39.0-53.0); HGB 11.5 gm/dL (13.0-17.5); Lymphocytes # (A) 1.1 k/uL (1.0-4.8); Lymphocytes % (A) 12 %; MCH 31.4 pg (25.0-35.0); MCHC 33.1 g/dL (31.0-37.0); MCV 94.9 fL (80.0-100.0); Mean Platelet Volume 8.1; Monocytes # (A) 0.3 k/uL (0-1.0); Monocytes % (A) 3 %; Neutrophils # (A) 7.8 k/uL (1.3-7.7); Neutrophils % (A) 85 %; Platelet Count 140 k/uL (150-450); RBC 3.67 m/uL (4.30-5.90); RDW 13.2 % (11.5-15.5); WBC 9.3 k/uL (3.8-10.6)
--- NOTE | 2021-09-26 11:53 | XR ---
EXAMINATION TYPE: XR chest 1V portable DATE OF EXAM: 09/26/2021 COMPARISON: Chest x-ray 05/13/2021 HISTORY: Covid 19 infection TECHNIQUE: Single frontal view of the chest is obtained. FINDINGS: There is no pleural effusion or pneumothorax seen. Patchy basilar densities are present. Aorta is dense. Patient is rotated. The cardiac silhouette size is within normal limits. The osseou s structures are intact. IMPRESSION: Rotated exam, there may be some basilar atelectasis, correlate to exclude pneumonia and follow-up as indicated
[2021-09-26 11:56] LABS: ALT 14 U/L (4-49); AST 42 U/L (17-59); African American GFR (CKD) >90 (>60 ml/min/1.73 sqM); Albumin 3.1 g/dL (3.5-5.0); Alkaline Phosphatase 76 U/L (38-126); Anion Gap 8 mmol/L; Blood Urea Nitrogen 19 mg/dL (9-20); Calcium 8.1 mg/dL (8.4-10.2); Carbon Dioxide 24 mmol/L (22-30); Chloride 101 mmol/L (98-107); Glucose 104 mg/dL (74-99); LDH 785 U/L (313-618); Magnesium 1.8 mg/dL (1.6-2.3); Non-African American GFR(CKD) >90 (>60 ml/min/1.73 sqM); Potassium 3.2 mmol/L (3.5-5.1); Sodium 133 mmol/L (137-145); Total Bilirubin 0.6 mg/dL (0.2-1.3); Total Protein 5.7 g/dL (6.3-8.2)
[2021-09-26 12:10] LABS: C Reactive Protein 15.8 mg/dL (<1.0)
[2021-09-26 12:14] LABS: INR 1.2 (<1.2); Partial Thromboplastin Time 33.7 sec (22.0-30.0); Prothrombin Time 12.1 sec (9.0-12.0)
[2021-09-26] MEDS ORDERED: NALOXONE 0.4 MG/ML 1 ML VIAL IV PRN (14:02)
[2021-09-26] MEDS ORDERED: CHOLECALCIFEROL 125 MCG (5000 IU) TABLET PO SCH (14:15)
[2021-09-26] MEDS: DEXAMETHASONE SOD PHOSPHATE 10 MG/ML 1 ML VIAL IVP SCH (15:28)
[2021-09-26] MEDS: ZINC SULFATE 220 MG CAP PO SCH (15:28)
[2021-09-26] MEDS: SODIUM CHLORIDE 0.9% 1,000 ML IV SCH (15:29)
[2021-09-26] MEDS: ALBUTEROL HFA INHALER INHALATION SCH ×2 (15:43→19:26)
--- NOTE | 2021-09-26 17:08 | P.CNPUL ---
History of Present Illness Consult date: 09/26/21 Requesting physician: Vinicio Torres Reason for consult: dyspnea Chief complaint: Shortness of breath History of present illness: Assessment 85-year-old white male patient of Dr. Thompson who came into the emergency department on 09/26/2021 for evaluation of shortness of breath, cough and fatigue, onset of symptoms was one week ago and patient tested positive for COVID-19 infection 3 days ago. Apparently his also tested positive for COVID-19, however she is doing better than her , and did not require to come into the emergency department. Reports some cough with sputum production, nausea, significant fatigue, chills. Per EMS report his oxygen saturation was around 89% and she was placed on supplemental oxygen, patient reports completed COVID-19 vaccination with 2 shots, no booster. Patient has a history of coronary artery disease, hypertension, hyperlipidemia, sleep apnea, prostate disorder, previous history of CVA with left-sided facial weakness, multiple TIAs, Parkinson's disease, thoracic spondylosis, previous history of kidney stones, UTIs, peripheral vascular disease, nonsmoker. His chest x-ray showed patchy basilar densities. Patient is resting comfortably on the gurney in the emergency department, he is on 2 L of oxygen, with his pulse ox is 93-90%, low-grade fever with a temp of 99F, blood pressure stable, breathing fairly comfortably, lung sounds revealed scattered rhonchi at the bases, no complaints of chest pain, no lower extremity edema. EKG showed sinus rhythm. Review of Systems All systems: negative Constitutional: Denies chills, Denies fever Eyes: denies blurred vision, denies pain Ears, nose, mouth and throat: Denies headache, Denies sore throat Cardiovascular: Denies chest pain, Denies shortness of breath Respiratory: Reports cough, Reports cough with sputum, Reports dyspnea, Reports respiratory infections Gastrointestinal: Denies abdominal pain, Denies diarrhea, Denies nausea, Denies vomiting Musculoskeletal: Denies myalgias Integumentary: Denies pruritus, Denies rash Neurological: Denies numbness, Denies weakness Psychiatric: Denies anxiety, Denies depression Endocrine: Denies fatigue, Denies weight change 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, multiple TIAs, parkinson's disease, neuralgia, neuropathy bilateral hands, legs and feet, thoracic spondylosis, prostrate cancer with surgery/chemo and radiation, UTIs, kidney stones, L eye glaucoma, PVD/bilateral lower extremity edema, caratid stenosis, aemia, bronchitis, lower GI bleed History of Any Multi-Drug Resistant Organisms: None Reported Past Surgical History: Adenoidectomy, Back Surgery, Heart Catheterization With Stent, Hernia Repair, Joint Replacement, Orthopedic Surgery, Prostate Surgery, Tonsillectomy Additional Past Surgical History / Comment(s): PCI with stent in 2012, prostate biopsies, laser vaporization of prostrate, bilateral inquinal hernia repairs, EGD/colonoscopy, supraorbital percutaneous nerve stimulator trial, epidural injections, low back surgery, R foot hammer toe surgery, bilateral total knee replacements, bilateral cataract removals/lens implants, hemorrhoidectomy, R side of head vein biopsy, left hip arthroplasty 2 weeks ago Past Anesthesia/Blood Transfusion Reactions: No Reported Reaction Additional Past Anesthesia/Blood Transfusion Reaction / Comment(s): Pt has received blood in past without reaction. Date of Last Stent Placement:: 2012 Past Psychological History: No Psychological Hx Reported Smoking Status: Never smoker Past Alcohol Use History: None Reported Past Drug Use History: None Reported - Past Family History Brother(s) Family Medical History: No Reported History Additional Family Medical History / Comment(s): Patient has 3 brothers with no major medical problems. Sister(s) Family Medical History: Hypertension Additional Family Medical History / Comment(s): Patient has 3 sisters that are all alive. 2 have high blood pressure. One has diabetes and stroke and is 81 years old. And all have history of tremors. Son(s) Family Medical History: No Reported History Additional Family Medical History / Comment(s): Patient has 3 sons and one daughter with no major medical problems. Father Family Medical History: Myocardial Infarction ([place]) Additional Family Medical History / Comment(s): Father at age 73 with history of Parkinson's disease, bowel cancer, bone cancer. Mother Family Medical History: No Reported History, Myocardial Infarction ([place]) Additional Family Medical History / Comment(s): Mother at age 85 with history of hypertension and dementia. Medications and Allergies Home Medications Medication Instructions Recorded Confirmed Type Montelukast [Singulair] 10 mg PO HS@209909/19/15 09/26/21 History Ferrous Sulfate [Iron (65 MG 325 mg PO DIRECTED 07/14/18 09/26/21 History Elemental)] Latanoprost/Pf [Latanoprost 0.005% 1 drop BOTH EYES HS@209904/16/20 09/26/21 History Eye Drop] Rosuvastatin Calcium 20 mg PO HS@199904/16/20 09/26/21 History Tamsulosin [Flomax] 0.4 mg PO DAILY 04/28/20 09/26/21 History Rivaroxaban [Xarelto] 20 mg PO DAILY@169905/19/20 09/26/21 History Brimonidine Tartrate [Alphagan P 1 drops LEFT EYE BID 11/26/20 09/26/21 History 0.2% Ophth Soln] Cholecalciferol [Vitamin D3 (25 125 mcg PO DAILY 11/26/20 09/26/21 History Mcg = 1000 Iu)] Escitalopram [Lexapro] 10 mg PO DAILY 11/26/20 09/26/21 History Pramipexole [Mirapex] 1 mg PO DAILY@1699,199911/26/20 09/26/21 History Buta/APAP/Caf/Cod 99-920-40-30 1 - 2 cap PO Q6H PRN 01/17/21 09/26/21 History [Fioricet w/Cod 01-386-98-30MG] Carbidopa-Levodopa ER 25-100Mg 2 tab PO TID 01/17/21 09/26/21 History [Sinemet CR 25-100 mg] levETIRAcetam [Keppra] 500 mg PO BID 01/17/21 09/26/21 History Aspirin EC [Ecotrin Low Dose] 81 mg PO DAILY 05/13/21 09/26/21 History Carvedilol [Coreg] 12.5 mg PO BID 05/13/21 09/26/21 History Fludrocortisone [Florinef] 0.1 mg PO DAILY 09/26/21 09/26/21 History Losartan Potassium 100 mg PO DAILY 09/26/21 09/26/21 History Potassium Chloride ER [K-Dur 10] 10 meq PO HS 09/26/21 09/26/21 History Timolol 0.5% Ophth Soln [Timoptic 1 drop BOTH EYES DAILY 09/26/21 09/26/21 History 0.5% Ophth Soln] amLODIPine [Norvasc] 5 mg PO DAILY 09/26/21 09/26/21 History hydrALAZINE HCL [Apresoline] 25 mg PO BID 09/26/21 09/26/21 History Allergies Allergy/AdvReac Type Severity Reaction Status Date / Time metoclopramide [From Reglan] AdvReac SHAKES Verified 09/26/21 12:23 oxycodone HCl AdvReac Nausea & Verified 09/26/21 12:23 [From OxyContin] Vomiting Physical Exam Vitals: Vital Signs Temp Pulse Resp BP Pulse Ox 09/26/21 12:48 84 18 143/88 98 09/26/21 11:07 93 L 09/26/21 11:06 89 L 09/26/21 10:58 20 09/26/21 10:49 99.0 F 87 20 165/98 96 Intake and Output 09/26/21 09/26/21 09/26/21 06:59 14:59 22:59 Other: Weight 96.162 kg GENERAL EXAM: Alert, very pleasant, 85-year-old white male, on 2 L of oxygen and the pulse ox of 90% comfortable in no apparent distress. HEAD: Normocephalic/atraumatic. EYES: Normal reaction of pupils, equal size. Conjunctiva pink, sclera white. NOSE: Clear with pink turbinates. THROAT: No erythema or exudates. NECK: No masses, no JVD, no thyroid enlargement, no adenopathy. CHEST: No chest wall deformity. Symmetrical expansion. LUNGS: Equal air entry with bibasilar rales CVS: Regular rate and rhythm, normal S1 and S2, no gallops, no murmurs, no rubs ABDOMEN: Soft, nontender. No hepatosplenomegaly, normal bowel sounds, no guarding or rigidity. EXTREMITIES: No clubbing, no edema, no cyanosis, 2+ pulses and upper and lower extremities. MUSCULOSKELETAL: Muscle strength and tone normal. SPINE: No scoliosis or deformity SKIN: No rashes CENTRAL NERVOUS SYSTEM: Alert and oriented -3. No focal deficits, tone is normal in all 4 extremities. PSYCHIATRIC: Alert and oriented -3. Appropriate affect. Intact judgment and insight. Results - Laboratory Findings CBC and BMP: 09/26/21 11:23 09/26/21 11:23 PT/INR, D-dimer PT 12.1 sec (9.0-12.0) H 09/26/21 11:23 INR 1.2 (<1.2) H 09/26/21 11:23 Abnormal lab findings: Abnormal Labs 09/26/21 09/26/21 09/26/21 11:23 11:23 11:23 RBC 3.67 L Hgb 11.5 L Hct 34.8 L Plt Count 140 L Neutrophils # 7.8 H PT 12.1 H INR 1.2 H APTT 33.7 H Sodium 133 L Potassium 3.2 L Creatinine 0.63 L Glucose 104 H Calcium 8.1 L Lactate Dehydrogenase 785 H C-Reactive Protein 15.8 H Total Protein 5.7 L Albumin 3.1 L Coronavirus (PCR) 09/26/21 16:05 RBC Hgb Hct Plt Count Neutrophils # PT INR APTT Sodium Potassium Creatinine Glucose Calcium Lactate Dehydrogenase C-Reactive Protein Total Protein Albumin Coronavirus (PCR) Detected A - Diagnostic Findings Chest x-ray: report reviewed, image reviewed Additional studies: EKG reviewed Assessment and Plan Plan: Assessment: #1. Acute hypoxic respiratory failure related to acute COVID-19 related pneumonia, patient presented to the emergency department on 09/26/2021 with a one-week history of symptoms including fatigue, fever, worsening dyspnea, and cough. He is status post completed vaccination with 2 injections, no booster (unknown what type). Patient is a candidate for Remdesivir and he'll be started on a ten-day on 09/26/2021 #2. Mild hyponatremia likely related to dehydration #3. Hypokalemia #4. Elevated inflammatory markers related to the COVID-19 pneumonia #5. Hypertension #6. Hyperlipidemia #7. Coronary artery disease with previous history of PCI and stenting #8. Previous history of CVA #9. Glaucoma #10. History of sleep apnea #11. Prostate disorder #12. Previous history of GI bleeding #13. Parkinson's #14. Previous history of UTIs and kidney stones Plan: Patient is a candidate for Remdesivir, we will start him today, Continue with daily dose Decadron 6 mg, Continue prophylactic Lovenox Follow-up a d-dimer, pro-calcitonin Inflammatory markers Gentle hydration Follow-up basic labs tomorrow I performed a history & physical examination of the patient and discussed their management with my nurse practitioner, Asia Galan. I reviewed the nurse practitioner's note and agree with the documented findings and plan of care. Lung sounds are positive for diffuse wheezes throughout the lung leon. The findings and the impression was discussed with the patient. I attest to the documentation by the nurse practitioner. Time with Patient: Greater than 30
[2021-09-26] MEDS ORDERED: REMDESIVIR 200 MG in SODIUM CHLORIDE 0.9% 250 ML IVPB ONE (18:00)
[2021-09-26] MEDS: ENOXAPARIN 40 MG/0.4 ML SYRINGE SQ SCH (19:14)
[2021-09-26] MEDS: ASCORBIC ACID 500 MG TAB PO SCH (20:26)
[2021-09-26] MEDS: MONTELUKAST 10 MG TAB PO SCH (21:55)
[2021-09-26] MEDS: POTASSIUM CHLORIDE ER 10 MEQ TAB.ER.PRT PO SCH (21:55)
[2021-09-26] MEDS: LATANOPROST 0.005% OPHTH DROPS 2.5 ML BTL BOTH EYES SCH (21:55)
[2021-09-26] MEDS: levETIRAcetam 500 MG TAB PO SCH (21:55)
[2021-09-26] MEDS: hydrALAZINE HCL 25 MG TAB PO SCH (21:55)
[2021-09-26] MEDS: CARBIDOPA-LEVODOPA ER 25-100MG 1 EACH TABLET.ER PO SCH (21:55)
[2021-09-26] MEDS: BRIMONIDINE TARTRATE 0.2% DROPS 5 ML BTL LEFT EYE SCH (21:55)
[2021-09-26] MEDS: carvediloL 12.5 MG TAB PO SCH (21:58)
--- NOTE | 2021-09-26 22:15 | P.HPIM ---
History of Present Illness H&P Date: 09/26/21 Chief Complaint: shortness of breath, COVID-19 pneumonitis, Chief Complaint: acute respiratory failure, COVID-19 pneumonitis, severe dyspnea and hypoxia. history of present illness: This is an 85-year-old male patient of my office patient with past medical history of coronary artery disease, Parkinson's disease, recurrent headaches, severe PAD, generalized osteoarthritis, obstructive sleep apnea on CPAP, history of total left hip arthroplasty with subsequent bilateral pulmonary embolism and large DVT in the right leg for which patient is on Xarelto. He was readmitted from April 28 through May 06, 2020, at which time he was seen by multiple consultants including neurology for seizure activity and adjustments were made on Keppra and patient was started on Vimpat. He was also treated for acute catheter associated urinary tract infection, urinary retention, hematuria and was seen by Dr. Gaspar. Patient was seen by Dr. Reina for hyponatremia with SIADH. Patient was stabilized and discharged back to [facility]. Patient is currently seeing Dr. Byrd and is stable on the current seizure medications. patient presented to the emergency department at [facility] on 09/26/2021 for worsening shortness of breath, fatigue and worsening dyspnea he was tested positive for COVID-19 3 days ago apparently him and his both were exposed and tested positive he came into the emergency department today been dyspneic with severe hypoxia pulse ox is running in the 80s patient is more symptomatic with fatigue tiredness and overall generalized symptom cough productive phlegm. Patient was started on 2 L 4 to brought his pulse ox to 93 percentile felt slightly bit more comfortable. The rest of his lab including his marker including pro-calcitonin was 2.4 to, C-reactive protein was 15.8, LDH was 785, lactic acid was normal d-dimer was elevated at 1.08. Chest x-ray was performed and showed basilar atelectasis like patchy infiltrate in both side without any major fibrosis no consolidation and a larger area. The patient been on anticoagulation did not require to go for CTA specially with his d-dimer being elevated. Patient will be admitted to the hospital start on dexamethasone, updraft, O2 will be seen pulmonary consider the possibility of starting him on antiviral medication. ROS Constitutional: patient had fever, chills, lethargy, fatigue and tiredness with no weight loss. Eyes: denies decreased vision, denies diplopia, denies discharge, denies pain Ears: deny: decreased hearing Ears, nose, mouth and throat: Denies dental pain, Denies headache, Denies nasal discharge, Denies nose pain Cardiovascular: Denies chest pain, Denies decreased exercise tolerance, Denies edema, Denies high blood pressure, Denies irregular heart beat, Denies palpitations, Denies paroxysmal nocturnal dyspnea, Denies rapid heart beat, Denies shortness of breath Respiratory: developed worsening shortness of breath with dyspnea, cough, significant shortness of breath with minimum exertion. also patient is having more wheezes. Gastrointestinal: Denies abdominal pain, Denies change in bowel habits, Denies coffee ground emesis, Denies early satiety, Denies excessive gas, Denies heartburn, Denies hematemesis, Denies hematochezia, Denies loss of appetite, Denies nausea, Denies vomiting Genitourinary: Denies dysuria, Denies flank pain, Denies kidney stones, Denies menorrhagia, Denies urgency, Denies urinary frequency Musculoskeletal: Endorses gait dysfunction, endorses limitation of motion, Denies morning stiffness, Denies muscle cramps Integumentary: Denies rash, Denies wounds, Denies brittle nails, Denies change in hair/nails, Denies darkening of skin Neurological: Endorses balance difficulties, Denies change in speech, Denies double vision, Denies gait dysfunction, Denies loss of vision, Denies motor disturbance, Denies numbness, Denies paralysis, Denies paresthesias, Denies seizures Psychiatric: Denies anxiety, Denies depression Endocrine: Denies excessive sweating, Denies excessive thirst, Denies high blood sugars, Denies palpitations Hematologic/Lymphatic: Denies easy bruising, Denies lymphadenopathy Social history Nonsmoker nonalcoholic lives with his Family history Brother 3 brothers with no significant medical problems Sr. 3 sister all alive to have high blood pressure 1 has diabetes and stroke is 81 years old on has history of tremors Father has history of myocardial infarction and at the age of 73 with history of Parkinson disease AND bone cancer Mother has history of myocardial infarction at the age of 7085 with a history of hypertension and dementia Patient has 3 sons and one daughter with no major medical problems Physical Examination Gen: This is an 85-year-old male. He is resting in bed and appears comfortable. HEENT: Head is atraumatic, normocephalic. Pupils equal, round. Sclerae is anicteric. Left arm tremor. NECK: Supple. No JVD. No lymphadenopathy. No thyromegaly. LUNGS: decreased breath sounds bilaterally with fine rhonchi positive mild crackles in the bases with mild expiratory wheezes. HEART: Regular rate and rhythm. Systolic ejection murmur. ABDOMEN: Soft. Bowel sounds are present. No masses. No tenderness. EXTREMITIES: No pedal edema. No calf tenderness. NEUROLOGICAL: Patient answers questions appropriately and follows command no motor or sensory deficit noted Assessment and Plan 1. acute hypoxic respiratory failure: Secondary to COVID-19 pneumonitis. Patient be on O2, updraft treatment, supportive care also pulmonary. 2. COVID-19 pneumonitis: Patient will be on Remdesivir along with Decadron, updraft treatment and O2 continue supportive care repeat COVID-19 marker in the next few days. 3. history of coronary artery disease post PCI and stent placement still on secondary prevention and seeing cardiology regular basis. 4. Parkinson disease on Sinemet. Sinemet ER 25/101 tab twice a day and each daily. Mirapex milligram by mouth daily 5. History of CVA. Continue aspirin and Lipitor 40 mg daily, does not have any worsening of residual this point. He'll seen neurology on regular basis. 6. Hyperlipidemia. Home medications are Lipitor 40 mg daily, Zetia 7. Seizure disorder, follows with Dr. Byrd. Neurology consult. Continue Keppra 500 twice a day 8. History of Bilateral pulmonary embolism originating from DVT right leg. Patient is on Xarelto. Patient had follow-up CAT scan and venous Doppler to assess the duration of xarelto. May need Xarelto on discharge. Patient is at high risk of recurrent PE due to being nonambulatory 9. Benign prostatic hypertrophy with history of urinary retention that required chronic Olivo catheter. Patient is on Flomax 0.4 mg twice daily. 10. Restless leg syndrome. On Mirapex 1 mg twice daily. 11. Generalized debility with decreased lower extremity strength. Patient was getting progressively weak at home PTOT consult for possible rehab placement 12 GI prophylaxis. Pepcid 20 mg daily 12. DVT prophylaxis. Will resume Xarelto. CODE STATUS: Full code Patient to be admitted to the hospital for a minimum of 2 night stay. 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, multiple TIAs, parkinson's disease, neuralgia, neuropathy bilateral hands, legs and feet, thoracic spondylosis, prostrate cancer with surgery/chemo and radiation, UTIs, kidney stones, L eye glaucoma, PVD/bilateral lower extremity edema, caratid stenosis, aemia, bronchitis, lower GI bleed History of Any Multi-Drug Resistant Organisms: None Reported Past Surgical History: Adenoidectomy, Back Surgery, Heart Catheterization With Stent, Hernia Repair, Joint Replacement, Orthopedic Surgery, Prostate Surgery, Tonsillectomy Additional Past Surgical History / Comment(s): PCI with stent in 2012, prostate biopsies, laser vaporization of prostrate, bilateral inquinal hernia repairs, EGD/colonoscopy, supraorbital percutaneous nerve stimulator trial, epidural i njections, low back surgery, R foot hammer toe surgery, bilateral total knee replacements, bilateral cataract removals/lens implants, hemorrhoidectomy, R side of head vein biopsy, left hip arthroplasty 2 weeks ago Past Anesthesia/Blood Transfusion Reactions: No Reported Reaction Additional Past Anesthesia/Blood Transfusion Reaction / Comment(s): Pt has received blood in past without reaction. Date of Last Stent Placement:: 2012 Past Psychological History: No Psychological Hx Reported Additional Psychological History / Comment(s): Pt resides with his spouse. He uses a walker to ambulate. Smoking Status: Never smoker Past Alcohol Use History: None Reported Past Drug Use History: None Reported - Past Family History Brother(s) Family Medical History: No Reported History Additional Family Medical History / Comment(s): Patient has 3 brothers with no major medical problems. Sister(s) Family Medical History: Hypertension Additional Family Medical History / Comment(s): Patient has 3 sisters that are all alive. 2 have high blood pressure. One has diabetes and stroke and is 81 years old. And all have history of tremors. Son(s) Family Medical History: No Reported History Additional Family Medical History / Comment(s): Patient has 3 sons and one daughter with no major medical problems. Father Family Medical History: Myocardial Infarction ([place]) Additional Family Medical History / Comment(s): Father at age 73 with history of Parkinson's disease, bowel cancer, bone cancer. Mother Family Medical History: No Reported History, Myocardial Infarction ([place]) Additional Family Medical History / Comment(s): Mother at age 85 with history of hypertension and dementia. Medications and Allergies Home Medications Medication Instructions Recorded Confirmed Type Montelukast [Singulair] 10 mg PO HS@209909/19/15 09/26/21 History Ferrous Sulfate [Iron (65 MG 325 mg PO DIRECTED 07/14/18 09/26/21 History Elemental)] Latanoprost/Pf [Latanoprost 0.005% 1 drop BOTH EYES HS@209904/16/20 09/26/21 History Eye Drop] Rosuvastatin Calcium 20 mg PO HS@199904/16/20 09/26/21 History Tamsulosin [Flomax] 0.4 mg PO DAILY 04/28/20 09/26/21 History Rivaroxaban [Xarelto] 20 mg PO DAILY@17005/19/20 09/26/21 History Brimonidine Tartrate [Alphagan P 1 drops LEFT EYE BID 11/26/20 09/26/21 History 0.2% Ophth Soln] Cholecalciferol [Vitamin D3 (25 125 mcg PO DAILY 11/26/20 09/26/21 History Mcg = 1000 Iu)] Escitalopram [Lexapro] 10 mg PO DAILY 11/26/20 09/26/21 History Pramipexole [Mirapex] 1 mg PO DAILY@11/26/20 09/26/21 History Buta/APAP/Caf/Cod 86-026-99-30 1 - 2 cap PO Q6H PRN 01/17/21 09/26/21 History [Fioricet w/Cod 60-363-30-30MG] Carbidopa-Levodopa ER 25-100Mg 2 tab PO TID 01/17/21 09/26/21 History [Sinemet CR 25-100 mg] levETIRAcetam [Keppra] 500 mg PO BID 01/17/21 09/26/21 History Aspirin EC [Ecotrin Low Dose] 81 mg PO DAILY 05/13/21 09/26/21 History Carvedilol [Coreg] 12.5 mg PO BID 05/13/21 09/26/21 History Fludrocortisone [Florinef] 0.1 mg PO DAILY 09/26/21 09/26/21 History Losartan Potassium 100 mg PO DAILY 09/26/21 09/26/21 History Potassium Chloride ER [K-Dur 10] 10 meq PO HS 09/26/21 09/26/21 History Timolol 0.5% Ophth Soln [Timoptic 1 drop BOTH EYES DAILY 09/26/21 09/26/21 History 0.5% Ophth Soln] amLODIPine [Norvasc] 5 mg PO DAILY 09/26/21 09/26/21 History hydrALAZINE HCL [Apresoline] 25 mg PO BID 09/26/21 09/26/21 History Allergies Allergy/AdvReac Type Severity Reaction Status Date / Time metoclopramide [From Reglan] AdvReac SHAKES Verified 09/26/21 12:23 oxycodone HCl AdvReac Nausea & Verified 09/26/21 12:23 [From OxyContin] Vomiting Physical Exam Vitals: Vital Signs Temp Pulse Pulse Resp BP BP Pulse Ox 09/26/21 20:27 92 137/76 96 09/26/21 18:31 98.6 F 81 16 167/100 95 09/26/21 12:48 84 18 143/88 98 09/26/21 11:07 93 L 09/26/21 11:06 89 L 09/26/21 10:58 20 09/26/21 10:49 99.0 F 87 20 165/98 96 Intake and Output 09/26/21 09/26/21 09/26/21 06:59 14:59 22:59 Other: # Voids 1 Weight 96.162 kg 96.162 kg Results CBC & Chem 7: 09/26/21 11:23 09/26/21 11:23 Labs: Abnormal Lab Results - Last 24 Hours (Table) 09/26/21 09/26/21 09/26/21 Range/Units 11:23 11:23 11:23 RBC 3.67 L (4.30-5.90) m/uL Hgb 11.5 L (13.0-17.5) gm/dL Hct 34.8 L (39.0-53.0) % Plt Count 140 L (150-450) k/uL Neutrophils # 7.8 H (1.3-7.7) k/uL PT 12.1 H (9.0-12.0) sec INR 1.2 H (<1.2) APTT 33.7 H (22.0-30.0) sec D-Dimer (<0.60) mg/L FEU Sodium 133 L (137-145) mmol/L Potassium 3.2 L (3.5-5.1) mmol/L Creatinine 0.63 L (0.66-1.25) mg/dL Glucose 104 H (74-99) mg/dL Calcium 8.1 L (8.4-10.2) mg/dL Lactate Dehydrogenase 785 H (313-618) U/L C-Reactive Protein 15.8 H (<1.0) mg/dL Total Protein 5.7 L (6.3-8.2) g/dL Albumin 3.1 L (3.5-5.0) g/dL Procalcitonin (0.02-0.09) ng/mL Coronavirus (PCR) (Not Detectd) 09/26/21 09/26/21 09/26/21 Range/Units 11:23 16:05 18:02 RBC (4.30-5.90) m/uL Hgb (13.0-17.5) gm/dL Hct (39.0-53.0) % Plt Count (150-450) k/uL Neutrophils # (1.3-7.7) k/uL PT (9.0-12.0) sec INR (<1.2) APTT (22.0-30.0) sec D-Dimer 1.08 H (<0.60) mg/L FEU Sodium (137-145) mmol/L Potassium (3.5-5.1) mmol/L Creatinine (0.66-1.25) mg/dL Glucose (74-99) mg/dL Calcium (8.4-10.2) mg/dL Lactate Dehydrogenase (313-618) U/L C-Reactive Protein (<1.0) mg/dL Total Protein (6.3-8.2) g/dL Albumin (3.5-5.0) g/dL Procalcitonin 2.42 H (0.02-0.09) ng/mL Coronavirus (PCR) Detected A (Not Detectd) Thrombosis Risk Factor Assmnt - Choose All That Apply Any of the Below Risk Factors Present?: Yes Each Factor Represents 1 point: Obesity (BMI >25) Other Risk Factors: No Each Risk Factor Represents 3 Points: Age 75 years or older Other congenital or acquired thrombophilia - If yes, enter type in comment: No Thrombosis Risk Factor Assessment Total Risk Factor Score: 4 Thrombosis Risk Factor Assessment Level: Moderate Risk
[2021-09-26] MEDS ORDERED: BUTA/APAP/CAF/COD 50-325-40-30 CAP PO PRN (23:00)
[2021-09-27] MEDS: ALBUTEROL HFA INHALER INHALATION SCH ×4 (04:31→19:12)
[2021-09-27] MEDS: SODIUM CHLORIDE 0.9% 1,000 ML IV SCH ×2 (04:46→12:49)
[2021-09-27] MEDS: DEXAMETHASONE SOD PHOSPHATE 10 MG/ML 1 ML VIAL IVP SCH (07:41)
[2021-09-27] MEDS: TIMOLOL 0.5% OPHTH DROPS 5 ML BTL BOTH EYES SCH (07:41)
[2021-09-27] MEDS: CARBIDOPA-LEVODOPA ER 25-100MG 1 EACH TABLET.ER PO SCH ×3 (07:42→20:50)
[2021-09-27] MEDS: BRIMONIDINE TARTRATE 0.2% DROPS 5 ML BTL LEFT EYE SCH ×2 (07:42→20:57)
[2021-09-27] MEDS: hydrALAZINE HCL 25 MG TAB PO SCH ×2 (07:44→20:49)
[2021-09-27] MEDS: TAMSULOSIN 0.4 MG CAP.ER.24H PO SCH (07:44)
[2021-09-27] MEDS: CHOLECALCIFEROL 125 MCG (5000 IU) TABLET PO SCH (07:44)
[2021-09-27] MEDS: ASCORBIC ACID 500 MG TAB PO SCH ×2 (07:45→20:49)
[2021-09-27] MEDS: FLUDROCORTISONE 0.1 MG TAB PO SCH (07:45)
[2021-09-27] MEDS: ZINC SULFATE 220 MG CAP PO SCH (07:45)
[2021-09-27] MEDS: levETIRAcetam 500 MG TAB PO SCH ×2 (07:45→20:50)
[2021-09-27] MEDS: ASPIRIN 81 MG PO SCH (07:45)
[2021-09-27] MEDS: ESCITALOPRAM 10 MG TAB PO SCH (07:45)
[2021-09-27] MEDS: amLODIPine 5 MG TAB PO SCH (07:45)
[2021-09-27] MEDS: carvediloL 12.5 MG TAB PO SCH ×2 (07:47→17:24)
[2021-09-27] MEDS: ENOXAPARIN 40 MG/0.4 ML SYRINGE SQ SCH (07:47)
[2021-09-27] MEDS: LOSARTAN 50 MG TAB PO SCH (07:47)
[2021-09-27 11:34] LABS: Basophils # (A) 0 X 10*3/uL (0.00-0.10); Basophils % (A) 0 %; Eosinophils # (A) 0 X 10*3/uL (0.04-0.35); Eosinophils % (A) 0 %; Lymphocytes # (A) 0.62 X 10*3/uL (0.90-5.00); Lymphocytes % (A) 10.9 %; MCH 30.6 pg (27.0-32.0); MCHC 31.4 g/dL (32.0-37.0); MCV 97.2 fL (80.0-97.0); Mean Platelet Volume 10.3 fL (9.5-12.2); Monocytes # (A) 0.21 X 10*3/uL (0.20-1.00); Monocytes % (A) 3.7 %; Neutrophils # (A) 4.85 X 10*3/uL (1.80-7.70); Platelet Count 137 X 10*3/uL (140-440); RDW 13.2 % (11.5-14.5)
--- NOTE | 2021-09-27 11:39 | P.PN ---
Subjective Progress Note Date: 09/27/21 history of present illness: This is an 85-year-old male patient of my office patient with past medical history of coronary artery disease, Parkinson's disease, recurrent headaches, severe PAD, generalized osteoarthritis, obstructive sleep apnea on CPAP, history of total left hip arthroplasty with subsequent bilateral pulmonary embolism and large DVT in the right leg for which patient is on Xarelto. He was readmitted from April 28 through May 06, 2020, at which time he was seen by multiple consultants including neurology for seizure activity and adjustments were made on Keppra and patient was started on Vimpat. He was also treated for acute catheter associated urinary tract infection, urinary retention, hematuria and was seen by Dr. Gaspar. Patient was seen by Dr. Reina for hyponatremia with SIADH. Patient was stabilized and discharged back to [facility]. Patient is currently seeing Dr. Byrd and is stable on the current seizure medications. patient presented to the emergency department at [facility] [place] on 09/26/2021 for worsening shortness of breath, fatigue and worsening dyspnea he was tested positive for COVID-19 3 days ago apparently him and his both were exposed and tested positive he came into the emergency department today been dyspneic with severe hypoxia pulse ox is running in the 80s patient is more symptomatic with fatigue tiredness and overall generalized symptom cough productive phlegm. Patient was started on 2 L 4 to brought his pulse ox to 93 percentile felt slightly bit more comfortable. The rest of his lab including his marker inc luding pro-calcitonin was 2.4 to, C-reactive protein was 15.8, LDH was 785, lactic acid was normal d-dimer was elevated at 1.08. Chest x-ray was performed and showed basilar atelectasis like patchy infiltrate in both side without any major fibrosis no consolidation and a larger area. The patient been on anticoagulation did not require to go for CTA specially with his d-dimer being elevated. Patient will be admitted to the hospital start on dexamethasone, updraft, O2 will be seen pulmonary consider the possibility of starting him on antiviral medication. 09/27: Patient is assessed on 4 S. he is found lying in bed resting comfortably. He is currently on 2 L of oxygen pulse ox at 95%. He was started yesterday on Remdesivir. Patient denies any discomfort or chest pain. He does have some shortness of breath specifically with exertion. Patient has been extremely emotional and upset due to being away from his who is ill. He was able to talk to his on the phone today which seemed to help ease some of his anxiety. Patient has been afebrile, heart rate 80, respirations 20, blood pressure 154/90, 95% on 2 L O2. W BC 5.7, hemoglobin 11.0, platelets 137, potassium was 3.2 which was replaced yesterday. We'll repeat tomorrow. ROS Constitutional: patient had fever, chills, lethargy, fatigue and tiredness with no weight loss. Eyes: denies decreased vision, denies diplopia, denies discharge, denies pain Ears: deny: decreased hearing Ears, nose, mouth and throat: Denies dental pain, Denies headache, Denies nasal discharge, Denies nose pain Cardiovascular: Denies chest pain, Denies decreased exercise tolerance, Denies edema, Denies high blood pressure, Denies irregular heart beat, Denies palpitations, Denies paroxysmal nocturnal dyspnea, Denies rapid heart beat, Denies shortness of breath Respiratory: developed worsening shortness of breath with dyspnea, cough, significant shortness of breath with minimum exertion. also patient is having more wheezes. Gastrointestinal: Denies abdominal pain, Denies change in bowel habits, Denies coffee ground emesis, Denies early satiety, Denies excessive gas, Denies heartburn, Denies hematemesis, Denies hematochezia, Denies loss of appetite, Denies nausea, Denies vomiting Genitourinary: Denies dysuria, Denies flank pain, Denies kidney stones, Denies menorrhagia, Denies urgency, Denies urinary frequency Musculoskeletal: Endorses gait dysfunction, endorses limitation of motion, Denies morning stiffness, Denies muscle cramps Integumentary: Denies rash, Denies wounds, Denies brittle nails, Denies change in hair/nails, Denies darkening of skin Neurological: Endorses balance difficulties, Denies change in speech, Denies double vision, Denies gait dysfunction, Denies loss of vision, Denies motor disturbance, Denies numbness, Denies paralysis, Denies paresthesias, Denies seizures Psychiatric: Denies anxiety, Denies depression Endocrine: Denies excessive sweating, Denies excessive thirst, Denies high blood sugars, Denies palpitations Hematologic/Lymphatic: Denies easy bruising, Denies lymphadenopathy Physical Examination Gen: This is an 85-year-old male. He is resting in bed and appears comfortable. HEENT: Head is atraumatic, normocephalic. Pupils equal, round. Sclerae is anicteric. Left arm tremor. NECK: Supple. No JVD. No lymphadenopathy. No thyromegaly. LUNGS: decreased breath sounds bilaterally with fine rhonchi positive mild crackles in the bases with mild expiratory wheezes. HEART: Regular rate and rhythm. Systolic ejection murmur. ABDOMEN: Soft. Bowel sounds are present. No masses. No tenderness. EXTREMITIES: No pedal edema. No calf tenderness. NEUROLOGICAL: Patient answers questions appropriately and follows command no motor or sensory deficit noted Assessment and Plan 1. acute hypoxic respiratory failure: Secondary to COVID-19 pneumonitis. Patient be on O2, updraft treatment, supportive care also pulmonary. 2. COVID-19 pneumonitis: Patient will be on Remdesivir along with Decadron, updraft treatment and O2 continue supportive care repeat COVID-19 marker in the next few days. 3. history of coronary artery disease post PCI and stent placement still on secondary prevention and seeing cardiology regular basis. 4. Parkinson disease on Sinemet. Sinemet ER 25/101 tab twice a day and each daily. Mirapex milligram by mouth daily 5. History of CVA. Continue aspirin and Lipitor 40 mg daily, does not have any worsening of residual this point. He'll seen neurology on regular basis. 6. Hyperlipidemia. Home medications are Lipitor 40 mg daily, Zetia 7. Seizure disorder, follows with Dr. Byrd. Neurology consult. Continue Keppra 500 twice a day 8. History of Bilateral pulmonary embolism originating from DVT right leg. Patient is on Xarelto. Patient had follow-up CAT scan and venous Doppler to assess the duration of xarelto. May need Xarelto on discharge. Patient is at high risk of recurrent PE due to being nonambulatory 9. Benign prostatic hypertrophy with history of urinary retention that required chronic Olivo catheter. Patient is on Flomax 0.4 mg twice daily. 10. Restless leg syndrome. On Mirapex 1 mg twice daily. 11. Generalized debility with decreased lower extremity strength. Patient was getting progressively weak at home PTOT consult for possible rehab placement 12. Hypokalemia. Potassium replacement per protocol. Repeat potassium tomor row. 13 GI prophylaxis. Pepcid 20 mg daily 14. DVT prophylaxis. Will resume Xarelto. CODE STATUS: Full code Patient to be admitted to the hospital for a minimum of 2 night stay. Impression and plan of care have been directed as dictated by the signing physician. Leticia Gar nurse practitioner acting as scribe for signing physician. Objective - Vital Signs Vital signs: Vital Signs Temp 97.8 F 09/27/21 08:47 Pulse 80 09/27/21 08:47 Resp 20 09/27/21 08:47 BP 154/90 09/27/21 08:47 Pulse Ox 95 09/27/21 08:47 Intake & Output 09/26/21 09/27/21 09/27/21 18:59 06:59 18:59 Weight 96.162 kg 96.162 kg Other: Voiding Method Urinal Diaper # Voids 1 3 - Labs CBC & Chem 7: 09/26/21 11:23 09/26/21 11:23 Labs: Abnormal Lab Results - Last 24 Hours (Table) 09/26/21 09/26/21 09/26/21 Range/Units 11:23 11:23 11:23 RBC 3.67 L (4.30-5.90) m/uL Hgb 11.5 L (13.0-17.5) gm/dL Hct 34.8 L (39.0-53.0) % Plt Count 140 L (150-450) k/uL Neutrophils # 7.8 H (1.3-7.7) k/uL PT 12.1 H (9.0-12.0) sec INR 1.2 H (<1.2) APTT 33.7 H (22.0-30.0) sec D-Dimer (<0.60) mg/L FEU Sodium 133 L (137-145) mmol/L Potassium 3.2 L (3.5-5.1) mmol/L Creatinine 0.63 L (0.66-1.25) mg/dL Glucose 104 H (74-99) mg/dL Calcium 8.1 L (8.4-10.2) mg/dL Ferritin 405.0 H (22.0-322.0) ng/mL Lactate Dehydrogenase 785 H (313-618) U/L C-Reactive Protein 15.8 H (<1.0) mg/dL Total Protein 5.7 L (6.3-8.2) g/dL Albumin 3.1 L (3.5-5.0) g/dL Procalcitonin (0.02-0.09) ng/mL Coronavirus (PCR) (Not Detectd) 09/26/21 09/26/21 09/26/21 Range/Units 11:23 16:05 18:02 RBC (4.30-5.90) m/uL Hgb (13.0-17.5) gm/dL Hct (39.0-53.0) % Plt Count (150-450) k/uL Neutrophils # (1.3-7.7) k/uL PT (9.0-12.0) sec INR (<1.2) APTT (22.0-30.0) sec D-Dimer 1.08 H (<0.60) mg/L FEU Sodium (137-145) mmol/L Potassium (3.5-5.1) mmol/L Creatinine (0.66-1.25) mg/dL Glucose (74-99) mg/dL Calcium (8.4-10.2) mg/dL Ferritin (22.0-322.0) ng/mL Lactate Dehydrogenase (313-618) U/L C-Reactive Protein (<1.0) mg/dL Total Protein (6.3-8.2) g/dL Albumin (3.5-5.0) g/dL Procalcitonin 2.42 H (0.02-0.09) ng/mL Coronavirus (PCR) Detected A (Not Detectd) 09/27/21 Range/Units 06:47 RBC (4.30-5.90) m/uL Hgb (13.0-17.5) gm/dL Hct (39.0-53.0) % Plt Count (150-450) k/uL Neutrophils # (1.3-7.7) k/uL PT (9.0-12.0) sec INR (<1.2) APTT (22.0-30.0) sec D-Dimer 0.87 H (<0.60) mg/L FEU Sodium (137-145) mmol/L Potassium (3.5-5.1) mmol/L Creatinine (0.66-1.25) mg/dL Glucose (74-99) mg/dL Calcium (8.4-10.2) mg/dL Ferritin (22.0-322.0) ng/mL Lactate Dehydrogenase (313-618) U/L C-Reactive Protein (<1.0) mg/dL Total Protein (6.3-8.2) g/dL Albumin (3.5-5.0) g/dL Procalcitonin (0.02-0.09) ng/mL Coronavirus (PCR) (Not Detectd)
[2021-09-27 12:09] LABS: Anion Gap 12.4 mmol/L (10.00-18.00); BUN/Creat Ratio 26.33 Ratio (12.00-20.00); Blood Urea Nitrogen 15.8 mg/dL (9.0-27.0); C Reactive Protein 13.1 mg/dL (0.00-0.80); Calcium 8.3 mg/dL (8.7-10.3); Carbon Dioxide 22.6 mmol/L (20.0-27.5); Non-African American GFR(CKD) 92.3 (60.0-200.0); Potassium 4.2 mmol/L (3.5-5.5)
--- NOTE | 2021-09-27 15:18 | P.PN ---
Subjective Progress Note Date: 09/27/21 Assessment 85-year-old white male patient of Dr. Thompson who came into the emergency department on 09/26/2021 for evaluation of shortness of breath, cough and fatigue, onset of symptoms was one week ago and patient tested positive for COVID-19 infection 3 days ago. Apparently his also tested positive for COVID-19, however she is doing better than her , and did not require to come into the emergency department. Reports some cough with sputum production, nausea, significant fatigue, chills. Per EMS report his oxygen saturation was around 89% and she was placed on supplemental oxygen, patient reports completed COVID-19 vaccination with 2 shots, no booster. Patient has a history of cor onary artery disease, hypertension, hyperlipidemia, sleep apnea, prostate disorder, previous history of CVA with left-sided facial weakness, multiple TIAs, Parkinson's disease, thoracic spondylosis, previous history of kidney stones, UTIs, peripheral vascular disease, nonsmoker. His chest x-ray showed patchy basilar densities. Patient is resting comfortably on the gurney in the emergency department, he is on 2 L of oxygen, with his pulse ox is 93-90%, low- grade fever with a temp of 99F, blood pressure stable, breathing fairly comfortably, lung sounds revealed scattered rhonchi at the bases, no complaints of chest pain, no lower extremity edema. EKG showed sinus rhythm. The patient is seen today 09/27/2021 in follow-up on the regular medical floor. He is currently sitting up at the bedside. Awake and alert in no acute distress. He is maintaining good O2 saturations in the 90s on 2 L/m per nasal cannula. He is receiving normal saline at 75 ML's per hour. White count 5.7. Hemoglobin 11.0. Platelets 137. D-dimer 0.87. Sodium 139. Potassium 4.2. Creatinine 0.6. LDH 284. C-reactive protein 13.1. Pro-calcitonin 1.84. He is on day #2 of Remdesivir. Anticoagulated with Xarelto. Continued on Decadron, vitamin supplements. Objective - Vital Signs Vital signs: Vital Signs Temp 98 F 09/27/21 13:45 Pulse 84 09/27/21 13:45 Resp 18 09/27/21 13:45 BP 125/72 09/27/21 13:45 Pulse Ox 98 09/27/21 13:45 Intake & Output 09/26/21 09/27/21 09/27/21 18:59 06:59 18:59 Weight 96.162 kg 96.162 kg Other: Voiding Method Urinal Diaper # Voids 1 3 - Exam GENERAL EXAM: Alert, very pleasant, 85-year-old male patient, on 2 L of oxygen and the pulse ox of 98% comfortable in no apparent distress. HEAD: Normocephalic/atraumatic. EYES: Normal reaction of pupils, equal size. Conjunctiva pink, sclera white. NOSE: Clear with pink turbinates. THROAT: No erythema or exudates. NECK: No masses, no JVD, no thyroid enlargement, no adenopathy. CHEST: No chest wall deformity. Symmetrical expansion. LUNGS: Equal air entry with bibasilar crackles CVS: Regular rate and rhythm, normal S1 and S2, no gallops, no murmurs, no rubs ABDOMEN: Soft, nontender. No hepatosplenomegaly, normal bowel sounds, no guarding or rigidity. EXTREMITIES: No clubbing, no edema, no cyanosis, 2+ pulses and upper and lower extremities. MUSCULOSKELETAL: Muscle strength and tone normal. SPINE: No scoliosis or deformity SKIN: No rashes CENTRAL NERVOUS SYSTEM: No focal deficits, tone is normal in all 4 extremities. PSYCHIATRIC: Alert and oriented -3. Appropriate affect. Intact judgment and insight. - Labs CBC & Chem 7: 09/27/21 06:47 09/27/21 06:47 Labs: Abnormal Lab Results - Last 24 Hours (Table) 09/26/21 09/26/21 09/26/21 Range/Units 11:23 11:23 16:05 RBC (4.40-5.60) X 10*6/uL Hgb (13.0-17.0) g/dL Hct (39.6-50.0) % MCV (80.0-97.0) fL MCHC (32.0-37.0) g/dL Plt Count (140-440) X 10*3/uL Lymphocytes # (0.90-5.00) X 10*3/uL Eosinophils # (0.04-0.35) X 10*3/uL D-Dimer (<0.60) mg/L FEU BUN/Creatinine Ratio (12.00-20.00) Ratio Glucose (70-110) mg/dL Calcium (8.7-10.3) mg/dL Ferritin 405.0 H (22.0-322.0) ng/mL Lactate Dehydrogenase (120-246) U/L C-Reactive Protein (0.00-0.80) mg/dL Procalcitonin 2.42 H (0.02-0.09) ng/mL Coronavirus (PCR) Detected A (Not Detectd) 09/26/21 09/27/21 09/27/21 Range/Units 18:02 06:47 06:47 RBC 3.60 L (4.40-5.60) X 10*6/uL Hgb 11.0 L (13.0-17.0) g/dL Hct 35.0 L (39.6-50.0) % MCV 97.2 H (80.0-97.0) fL MCHC 31.4 L (32.0-37.0) g/dL Plt Count 137 L (140-440) X 10*3/uL Lymphocytes # 0.62 L (0.90-5.00) X 10*3/uL Eosinophils # 0 L (0.04-0.35) X 10*3/uL D-Dimer 1.08 H (<0.60) mg/L FEU BUN/Creatinine Ratio (12.00-20.00) Ratio Glucose (70-110) mg/dL Calcium (8.7-10.3) mg/dL Ferritin (22.0-322.0) ng/mL Lactate Dehydrogenase (120-246) U/L C-Reactive Protein (0.00-0.80) mg/dL Procalcitonin 1.84 H (0.02-0.09) ng/mL Coronavirus (PCR) (Not Detectd) 09/27/21 09/27/21 Range/Units 06:47 06:47 RBC (4.40-5.60) X 10*6/uL Hgb (13.0-17.0) g/dL Hct (39.6-50.0) % MCV (80.0-97.0) fL MCHC (32.0-37.0) g/dL Plt Count (140-440) X 10*3/uL Lymphocytes # (0.90-5.00) X 10*3/uL Eosinophils # (0.04-0.35) X 10*3/uL D-Dimer 0.87 H (<0.60) mg/L FEU BUN/Creatinine Ratio 26.33 H (12.00-20.00) Ratio Glucose 114 H (70-110) mg/dL Calcium 8.3 L (8.7-10.3) mg/dL Ferritin (22.0-322.0) ng/mL Lactate Dehydrogenase 284 H (120-246) U/L C-Reactive Protein 13.10 H (0.00-0.80) mg/dL Procalcitonin (0.02-0.09) ng/mL Coronavirus (PCR) (Not Detectd) Assessment and Plan Assessment: #1. Acute hypoxic respiratory failure related to acute COVID-19 related pneumon ia, patient presented to the emergency department on 09/26/2021 with a one-week history of symptoms including fatigue, fever, worsening dyspnea, and cough. He is status post completed vaccination with 2 injections, no booster (unknown what type). Remdesivir started on 09/26/2021 #2. Mild hyponatremia likely related to dehydration #3. Hypokalemia #4. Elevated inflammatory markers related to the COVID-19 pneumonia #5. Hypertension #6. Hyperlipidemia #7. Coronary artery disease with previous history of PCI and stenting #8. Previous history of CVA #9. Glaucoma #10. History of sleep apnea #11. Prostate disorder #12. Previous history of GI bleeding #13. Parkinson's #14. Previous history of UTIs and kidney stones Plan: Lesion was seen and evaluated Currently stable on 2 L nasal cannula Day #2 of Remdesivir Anticoagulated with Xarelto Continue on Decadron and vitamin supplement We will continue to follow I, the cosigning physician, performed a history & physical examination of the patient. Lungs sounds with bibasilar crackles. Maintaining good O2 saturations in the 90s on 2 L/m per nasal cannula. I discussed the assessment and plan of care with my nurse practitioner, Nataliia Pleitez. I attest to the above note as dictated by her.
[2021-09-27] MEDS: RIVAROXABAN 20 MG TAB PO SCH (17:24)
[2021-09-27] MEDS: REMDESIVIR 100 MG in SODIUM CHLORIDE 0.9% 250 ML IVPB SCH (17:24)
[2021-09-27] MEDS: PRAMIPEXOLE 1 MG TAB PO SCH ×2 (17:24→19:47)
[2021-09-27] MEDS: ATORVASTATIN 40 MG TAB PO SCH (19:47)
[2021-09-27] MEDS: ACETAMINOPHEN TAB 500 MG TAB PO PRN (19:48)
[2021-09-27] MEDS: MONTELUKAST 10 MG TAB PO SCH (20:50)
[2021-09-27] MEDS: POTASSIUM CHLORIDE ER 10 MEQ TAB.ER.PRT PO SCH (20:50)
[2021-09-27] MEDS: LATANOPROST 0.005% OPHTH DROPS 2.5 ML BTL BOTH EYES SCH (20:57)
[2021-09-28] MEDS: ALBUTEROL HFA INHALER INHALATION SCH ×4 (01:11→19:42)
[2021-09-28] MEDS: SODIUM CHLORIDE 0.9% 1,000 ML IV SCH (04:45)
[2021-09-28] MEDS: DEXAMETHASONE SOD PHOSPHATE 10 MG/ML 1 ML VIAL IVP SCH (07:54)
[2021-09-28] MEDS: CARBIDOPA-LEVODOPA ER 25-100MG 1 EACH TABLET.ER PO SCH ×3 (07:55→21:04)
[2021-09-28] MEDS: ASPIRIN 81 MG PO SCH (07:55)
[2021-09-28] MEDS: ZINC SULFATE 220 MG CAP PO SCH (07:55)
[2021-09-28] MEDS: ESCITALOPRAM 10 MG TAB PO SCH (07:55)
[2021-09-28] MEDS: amLODIPine 5 MG TAB PO SCH (07:55)
[2021-09-28] MEDS: CHOLECALCIFEROL 125 MCG (5000 IU) TABLET PO SCH (07:55)
[2021-09-28] MEDS: ASCORBIC ACID 500 MG TAB PO SCH ×2 (07:55→21:05)
[2021-09-28] MEDS: LOSARTAN 50 MG TAB PO SCH (07:55)
[2021-09-28] MEDS: hydrALAZINE HCL 25 MG TAB PO SCH ×2 (07:55→21:05)
[2021-09-28] MEDS: TAMSULOSIN 0.4 MG CAP.ER.24H PO SCH (07:56)
[2021-09-28] MEDS: FLUDROCORTISONE 0.1 MG TAB PO SCH (07:56)
[2021-09-28] MEDS: ACETAMINOPHEN TAB 500 MG TAB PO PRN (07:56)
[2021-09-28] MEDS: carvediloL 12.5 MG TAB PO SCH ×2 (07:56→17:21)
[2021-09-28] MEDS: levETIRAcetam 500 MG TAB PO SCH ×2 (07:56→21:06)
[2021-09-28] MEDS: TIMOLOL 0.5% OPHTH DROPS 5 ML BTL BOTH EYES SCH (07:57)
[2021-09-28] MEDS: BRIMONIDINE TARTRATE 0.2% DROPS 5 ML BTL LEFT EYE SCH ×2 (07:57→21:05)
[2021-09-28 10:56] LABS: Basophils # (A) 0 X 10*3/uL (0.00-0.10); Basophils % (A) 0 %; Eosinophils # (A) 0 X 10*3/uL (0.04-0.35); Eosinophils % (A) 0 %; HCT 31.4 % (39.6-50.0); HGB 10.1 g/dL (13.0-17.0); Lymphocytes # (A) 0.68 X 10*3/uL (0.90-5.00); MCH 30.8 pg (27.0-32.0); MCHC 32.2 g/dL (32.0-37.0); MCV 95.7 fL (80.0-97.0); Mean Platelet Volume 10.2 fL (9.5-12.2); Monocytes % (A) 8.2 %; Neutrophils # (A) 3.77 X 10*3/uL (1.80-7.70); Neutrophils % (A) 77.4 %; Platelet Count 163 X 10*3/uL (140-440); RBC 3.28 X 10*6/uL (4.40-5.60); RDW 13.2 % (11.5-14.5); WBC 4.87 X 10*3/uL (4.50-10.00)
[2021-09-28 11:29] LABS: African American GFR (CKD) 106.6 (60.0-200.0); Anion Gap 11.5 mmol/L (10.00-18.00); BUN/Creat Ratio 31.68 Ratio (12.00-20.00); Blood Urea Nitrogen 19.2 mg/dL (9.0-27.0); Calcium 8.1 mg/dL (8.7-10.3); Carbon Dioxide 24.1 mmol/L (20.0-27.5); Potassium 3.6 mmol/L (3.5-5.5)
[2021-09-28] MEDS: AMOXIC-POT CLAV 875-125MG 1 EACH TAB PO SCH ×2 (13:07→21:05)
--- NOTE | 2021-09-28 13:20 | P.PN ---
Subjective Progress Note Date: 09/28/21 history of present illness: This is an 85-year-old male patient of my office patient with past medical history of coronary artery disease, Parkinson's disease, recurrent headaches, severe PAD, generalized osteoarthritis, obstructive sleep apnea on CPAP, history of total left hip arthroplasty with subsequent bilateral pulmonary embolism and large DVT in the right leg for which patient is on Xarelto. He was readmitted from April 28 through May 06, 2020, at which time he was seen by multiple consultants including neurology for seizure activity and adjustments were made on Keppra and patient was started on Vimpat. He was also treated for acute catheter associated urinary tract infection, urinary retention, hematuria and was seen by Dr. Gaspar. Patient was seen by Dr. Reina for hyponatremia with SIADH. Patient was stabilized and discharged back to [facility]. Patient is currently seeing Dr. Byrd and is stable on the current seizure medications. patient presented to the emergency department at [facility] on 09/26/2021 for worsening shortness of breath, fatigue and worsening dyspnea he was tested positive for COVID-19 3 days ago apparently him and his both were exposed and tested positive he came into the emergency department today been dyspneic with severe hypoxia pulse ox is running in the 80s patient is more symptomatic with fatigue tiredness and overall generalized symptom cough productive phlegm. Patient was started on 2 L 4 to brought his pulse ox to 93 percentile felt slightly bit more comfortable. The rest of his lab including his marker inc luding pro-calcitonin was 2.4 to, C-reactive protein was 15.8, LDH was 785, lactic acid was normal d-dimer was elevated at 1.08. Chest x-ray was performed and showed basilar atelectasis like patchy infiltrate in both side without any major fibrosis no consolidation and a larger area. The patient been on anticoagulation did not require to go for CTA specially with his d-dimer being elevated. Patient will be admitted to the hospital start on dexamethasone, updraft, O2 will be seen pulmonary consider the possibility of starting him on antiviral medication. 09/27: Patient is assessed on 4 S. he is found lying in bed resting comfortably. He is currently on 2 L of oxygen pulse ox at 95%. He was started yesterday on Remdesivir. Patient denies any discomfort or chest pain. He does have some shortness of breath specifically with exertion. Patient has been extremely emotional and upset due to being away from his who is ill. He was able to talk to his on the phone today which seemed to help ease some of his anxiety. Patient has been afebrile, heart rate 80, respirations 20, blood pressure 154/90, 95% on 2 L O2. W BC 5.7, hemoglobin 11.0, platelets 137, potassium was 3.2 which was replaced yesterday. We'll repeat tomorrow. 09/28: Patient is assessed on 4 S. he is resting comfortably in bed. He is currently on 2 L of oxygen with a pulse ox of 94%. He is on dose 3/5 Rem desivir. Patient denies any discomfort or chest pain. Denies any shortness of breath with exertion or conversation at this time. Patient was able to speak with his on the phone. He is less anxious today compared to yesterday. Patient remains afebrile. Heart rate 73, respirations 18, blood pressure 150/84, pulse ox 96% 2L ROS Constitutional: patient had fever, chills, lethargy, fatigue and tiredness with no weight loss. Eyes: denies decreased vision, denies diplopia, denies discharge, denies pain Ears: deny: decreased hearing Ears, nose, mouth and throat: Denies dental pain, Denies headache, Denies nasal discharge, Denies nose pain Cardiovascular: Denies chest pain, Denies decreased exercise tolerance, Denies edema, Denies high blood pressure, Denies irregular heart beat, Denies palpitations, Denies paroxysmal nocturnal dyspnea, Denies rapid heart beat, Denies shortness of breath Respiratory: developed worsening shortness of breath with dyspnea, cough, significant shortness of breath with minimum exertion. also patient is having more wheezes. Gastrointestinal: Denies abdominal pain, Denies change in bowel habits, Denies coffee ground emesis, Denies early satiety, Denies excessive gas, Denies heartburn, Denies hematemesis, Denies hematochezia, Denies loss of appetite, Denies nausea, Denies vomiting Genitourinary: Denies dysuria, Denies flank pain, Denies kidney stones, Denies menorrhagia, Denies urgency, Denies urinary frequency Musculoskeletal: Endorses gait dysfunction, endorses limitation of motion, Denies morning stiffness, Denies muscle cramps Integumentary: Denies rash, Denies wounds, Denies brittle nails, Denies change in hair/nails, Denies darkening of skin Neurological: Endorses balance difficulties, Denies change in speech, Denies double vision, Denies gait dysfunction, Denies loss of vision, Denies motor disturbance, Denies numbness, Denies paralysis, Denies paresthesias, Denies seizures Psychiatric: Denies anxiety, Denies depression Endocrine: Denies excessive sweating, Denies excessive thirst, Denies high blood sugars, Denies palpitations Hematologic/Lymphatic: Denies easy bruising, Denies lymphadenopathy Physical Examination Gen: This is an 85-year-old male. He is resting in bed and appears comfortable. HEENT: Head is atraumatic, normocephalic. Pupils equal, round. Sclerae is anicteric. Left arm tremor. NECK: Supple. No JVD. No lymphadenopathy. No thyromegaly. LUNGS: decreased breath sounds bilaterally with fine rhonchi positive mild crackles in the bases with mild expiratory wheezes. HEART: Regular rate and rhythm. Systolic ejection murmur. ABDOMEN: Soft. Bowel sounds are present. No masses. No tenderness. EXTREMITIES: No pedal edema. No calf tenderness. NEUROLOGICAL: Patient answers questions appropriately and follows command no motor or sensory deficit noted Assessment and Plan 1. acute hypoxic respiratory failure: Secondary to COVID-19 pneumonitis. Patient be on O2, updraft treatment, supportive care also pulmonary. 2. COVID-19 pneumonitis: Patient will be on Remdesivir along with Decadron, updraft treatment and O2 continue supportive care repeat COVID-19 marker in the next few days. 3. history of coronary artery disease post PCI and stent placement still on secondary prevention and seeing cardiology regular basis. 4. Parkinson disease on Sinemet. Sinemet ER 25/101 tab twice a day and each daily. Mirapex milligram by mouth daily 5. History of CVA. Continue aspirin and Lipitor 40 mg daily, does not have any worsening of residual this point. He'll seen neurology on regular basis. 6. Hyperlipidemia. Home medications are Lipitor 40 mg daily, Zetia 7. Seizure disorder, follows with Dr. Byrd. Neurology consult. Continue Keppra 500 twice a day 8. History of Bilateral pulmonary embolism originating from DVT right leg. Patient is on Xarelto. Patient had follow-up CAT scan and venous Doppler to assess the duration of xarelto. May need Xarelto on discharge. Patient is at high risk of recurrent PE due to being nonambulatory 9. Benign prostatic hypertrophy with history of urinary retention that required chronic Olivo catheter. Patient is on Flomax 0.4 mg twice daily. 10. Restless leg syndrome. On Mirapex 1 mg twice daily. 11. Generalized debility with decreased lower extremity strength. Patient was getting progressively weak at home PTOT consult for possible rehab placement 12. Hypokalemia. Potassium replacement per protocol. Repeat potassium tomorrow. 13 GI prophylaxis. Pepcid 20 mg daily 14. DVT prophylaxis. Will resume Xarelto. CODE STATUS: Full code Patient to be admitted to the hospital for a minimum of 2 night stay. Discharge plan: Possibly home Wednesday or Wednesday Impression and plan of care have been directed as dictated by the signing physician. Leticia Gar nurse practitioner acting as scribe for signing physician. Objective - Vital Signs Vital signs: Vital Signs Temp 97.9 F 09/28/21 08:17 Pulse 73 09/28/21 08:17 Resp 18 09/28/21 08:17 BP 158/84 09/28/21 08:17 Pulse Ox 96 09/28/21 08:17 Intake & Output 09/27/21 09/28/21 09/28/21 18:59 06:59 18:59 Intake Total 600 200 Output Total 600 1000 25 Balance 0 -800 -25 Intake: Intake, IV Titration 600 Amount Sodium Chloride 0.9% 1, 600 000 ml @ 75 mls/hr IV . [id number] [facility] Rx#:[id number] Oral 200 Output: Urine 600 1000 25 Other: Voiding Method Urinal Urinal Urinal Diaper Diaper Diaper # Voids 1 3 # Bowel Movements 0 - Labs CBC & Chem 7: 09/28/21 08:48 09/28/21 08:48 Labs: Abnormal Lab Results - Last 24 Hours (Table) 09/28/21 09/28/21 Range/Units 08:48 08:48 RBC 3.28 L (4.40-5.60) X 10*6/uL Hgb 10.1 L (13.0-17.0) g/dL Hct 31.4 L (39.6-50.0) % Lymphocytes # 0.68 L (0.90-5.00) X 10*3/uL Eosinophils # 0 L (0.04-0.35) X 10*3/uL BUN/Creatinine Ratio 31.68 H (12.00-20.00) Ratio Glucose 122 H (70-110) mg/dL Calcium 8.1 L (8.7-10.3) mg/dL
--- NOTE | 2021-09-28 14:36 | P.PN ---
Subjective Progress Note Date: 09/28/21 Principal diagnosis: Shortness of breath, cough 85-year-old white male patient of Dr. Thompson who came into the emergency department on 09/26/2021 for evaluation of shortness of breath, cough and fatigue, onset of symptoms was one week ago and patient tested positive for COVID-19 infection 3 days ago. Apparently his also tested positive for COVID-19, however she is doing better than her , and did not require to come into the emergency department. Reports some cough with sputum production, nausea, significant fatigue, chills. Per EMS report his oxygen saturation was around 89% and she was placed on supplemental oxygen, patient reports completed COVID-19 vaccination with 2 shots, no booster. Patient has a history of coronary artery disease, hypertension, hyperlipidemia, sleep apnea, prostate disorder, previous history of CVA with left-sided facial weakness, multiple TIAs, Parkinson's disease, thoracic spondylosis, previous history of kidney stones, UTIs, peripheral vascular disease, nonsmoker. His chest x-ray showed patchy basilar densities. Patient is resting comfortably on the gurney in the emergency department, he is on 2 L of oxygen, with his pulse ox is 93-90%, low- grade fever with a temp of 99F, blood pressure stable, breathing fairly co mfortably, lung sounds revealed scattered rhonchi at the bases, no complaints of chest pain, no lower extremity edema. EKG showed sinus rhythm. The patient is seen today 09/27/2021 in follow-up on the regular medical floor. He is currently sitting up at the bedside. Awake and alert in no acute distress. He is maintaining good O2 saturations in the 90s on 2 L/m per nasal cannula. He is receiving normal saline at 75 ML's per hour. White count 5.7. Hemoglobin 11.0. Platelets 137. D-dimer 0.87. Sodium 139. Potassium 4.2. Creatinine 0.6. LDH 284. C-reactive protein 13.1. Pro-calcitonin 1.84. He is on day #2 of Remdesivir. Anticoagulated with Xarelto. Continued on Decadron, vitamin supplements. On 09/28/2021 patient seen in follow-up on medical surgical floor. He is sittin g up in a recliner, breathing very comfortably, he is currently on 2 L of oxygen pulse ox of 96%, he is working on his incentive spirometer, he is able to achieve 2.5 L on the today, lung sounds reveal some chest congestion, scattered rhonchi, he states his cough is non-productive, no complaints of chest discomfort, overall he looks and feels better, today is day 3 of Remdesivir, he continues on his home dose Xarelto, he continues on Decadron, and vitamin supplements. Today's labs have been reviewed, his white blood cell count is 4.8, hemoglobin is 10.1, electrolytes and renal profile are unremarkable, d- dimer is down to 0.87 and yesterday's labs, his inflammatory markers were improving and LDH was down to 284 and CRP was down to 13.1. Pro-calcitonin level came back elevated and was at 2.42 on admission, and down to 1.84 on yesterday's labs. Objective - Vital Signs Vital signs: Vital Signs Temp 97.9 F 09/28/21 08:17 Pulse 73 09/28/21 08:17 Resp 18 09/28/21 08:17 BP 158/84 09/28/21 08:17 Pulse Ox 96 09/28/21 08:17 Intake & Output 09/27/21 09/28/21 09/28/21 18:59 06:59 18:59 Intake Total 600 200 Output Total 600 1000 25 Balance 0 -800 -25 Intake: Intake, IV Titration 600 Amount Sodium Chloride 0.9% 1, 600 000 ml @ 75 mls/hr IV . [id number] [facility] Rx#:[id number] Oral 200 Output: Urine 600 1000 25 Other: Voiding Method Urinal Urinal Urinal Diaper Diaper Diaper # Voids 1 3 # Bowel Movements 0 - Exam GENERAL EXAM: Alert, very pleasant, 85-year-old white male, on 2 L of oxygen with a pulse ox of 96%, comfortable in no apparent distress. HEAD: Normocephalic/atraumatic. EYES: Normal reaction of pupils, equal size. Conjunctiva pink, sclera white. NOSE: Clear with pink turbinates. THROAT: No erythema or exudates. NECK: No masses, no JVD, no thyroid enlargement, no adenopathy. CHEST: No chest wall deformity. Symmetrical expansion. LUNGS: Equal air entry with diffuse bilateral rhonchi CVS: Regular rate and rhythm, normal S1 and S2, no gallops, no murmurs, no rubs ABDOMEN: Soft, nontender. No hepatosplenomegaly, normal bowel sounds, no guarding or rigidity. EXTREMITIES: No clubbing, no edema, no cyanosis, 2+ pulses and upper and lower extremities. MUSCULOSKELETAL: Muscle strength and tone normal. SPINE: No scoliosis or deformity SKIN: No rashes CENTRAL NERVOUS SYSTEM: Alert and oriented -3. No focal deficits, tone is normal in all 4 extremities. PSYCHIATRIC: Alert and oriented -3. Appropriate affect. Intact judgment and insight. - Labs CBC & Chem 7: 09/28/21 08:48 09/28/21 08:48 Labs: Abnormal Lab Results - Last 24 Hours (Table) 09/28/21 09/28/21 Range/Units 08:48 08:48 RBC 3.28 L (4.40-5.60) X 10*6/uL Hgb 10.1 L (13.0-17.0) g/dL Hct 31.4 L (39.6-50.0) % Lymphocytes # 0.68 L (0.90-5.00) X 10*3/uL Eosinophils # 0 L (0.04-0.35) X 10*3/uL BUN/Creatinine Ratio 31.68 H (12.00-20.00) Ratio Glucose 122 H (70-110) mg/dL Calcium 8.1 L (8.7-10.3) mg/dL Assessment and Plan Plan: Assessment: #1. Acute hypoxic respiratory failure related to acute COVID-19 related pneumonia, patient presented to the emergency department on 09/26/2021 with a one-week history of symptoms including fatigue, fever, worsening dyspnea, and cough. He is status post completed vaccination with 2 injections, no booster (unknown what type). Patient is a candidate for Remdesivir and was started on 09/26/2021 #2. Mild hyponatremia likely related to dehydration, improved #3. Hypokalemia, improved #4. Elevated inflammatory markers related to the COVID-19 pneumonia, improved #5. Hypertension #6. Hyperlipidemia #7. Coronary artery disease with previous history of PCI and stenting #8. Previous history of CVA #9. Glaucoma #10. History of sleep apnea #11. Prostate disorder #12. Previous history of GI bleeding #13. Parkinson's #14. Previous history of UTIs and kidney stones Plan: Continue Remdesivir, and today is day 3 of treatment Continue current dose Decadron and Lovenox Continue Xarelto Today's d-dimer and inflammatory markers were noted Follow-up Procalcitonin noted Will add Augmentin 875-125 BID follow up cxr, labs tomorrow Clinically seems to be improving I performed a history & physical examination of the patient and discussed their management with my nurse practitioner, Asia Galan. I reviewed the nurse practitioner's note and agree with the documented findings and plan of care. Lung sounds are positive for diffuse rhonchi throughout the lung leon. The findings and the impression was discussed with the patient. I attest to the documentation by the nurse practitioner. Time with Patient: Less than 30
[2021-09-28] MEDS: RIVAROXABAN 20 MG TAB PO SCH (17:21)
[2021-09-28] MEDS: PRAMIPEXOLE 1 MG TAB PO SCH ×2 (17:21→21:05)
[2021-09-28] MEDS: REMDESIVIR 100 MG in SODIUM CHLORIDE 0.9% 250 ML IVPB SCH (17:21)
[2021-09-28] MEDS: ATORVASTATIN 40 MG TAB PO SCH (21:05)
[2021-09-28] MEDS: LATANOPROST 0.005% OPHTH DROPS 2.5 ML BTL BOTH EYES SCH (21:05)
[2021-09-28] MEDS: MONTELUKAST 10 MG TAB PO SCH (21:06)
[2021-09-28] MEDS: POTASSIUM CHLORIDE ER 10 MEQ TAB.ER.PRT PO SCH (21:06)
[2021-09-28] MEDS: ONDANSETRON 4 MG/2 ML VIAL IVP PRN (21:22)
[2021-09-29] MEDS: ALBUTEROL HFA INHALER INHALATION SCH ×4 (01:07→21:35)
[2021-09-29] MEDS: LOSARTAN 50 MG TAB PO SCH (07:59)
[2021-09-29] MEDS: carvediloL 12.5 MG TAB PO SCH ×2 (08:00→16:24)
[2021-09-29] MEDS: ACETAMINOPHEN TAB 500 MG TAB PO PRN (08:00)
[2021-09-29] MEDS: CARBIDOPA-LEVODOPA ER 25-100MG 1 EACH TABLET.ER PO SCH ×3 (08:00→20:30)
[2021-09-29] MEDS: TAMSULOSIN 0.4 MG CAP.ER.24H PO SCH (08:00)
[2021-09-29] MEDS: ASCORBIC ACID 500 MG TAB PO SCH ×2 (08:01→20:30)
[2021-09-29] MEDS: amLODIPine 5 MG TAB PO SCH (08:01)
[2021-09-29] MEDS: AMOXIC-POT CLAV 875-125MG 1 EACH TAB PO SCH ×2 (08:01→20:31)
[2021-09-29] MEDS: ESCITALOPRAM 10 MG TAB PO SCH (08:01)
[2021-09-29] MEDS: CHOLECALCIFEROL 125 MCG (5000 IU) TABLET PO SCH (08:01)
[2021-09-29] MEDS: levETIRAcetam 500 MG TAB PO SCH ×2 (08:01→20:31)
[2021-09-29] MEDS: FLUDROCORTISONE 0.1 MG TAB PO SCH (08:01)
[2021-09-29] MEDS: hydrALAZINE HCL 25 MG TAB PO SCH ×2 (08:01→20:30)
[2021-09-29] MEDS: ZINC SULFATE 220 MG CAP PO SCH (08:01)
[2021-09-29] MEDS: TIMOLOL 0.5% OPHTH DROPS 5 ML BTL BOTH EYES SCH (08:02)
[2021-09-29] MEDS: DEXAMETHASONE SOD PHOSPHATE 10 MG/ML 1 ML VIAL IVP SCH (08:02)
[2021-09-29] MEDS: BRIMONIDINE TARTRATE 0.2% DROPS 5 ML BTL LEFT EYE SCH ×2 (08:02→20:31)
[2021-09-29] MEDS: ASPIRIN 81 MG PO SCH (08:02)
--- NOTE | 2021-09-29 08:49 | XR ---
EXAMINATION TYPE: XR chest 1V portable DATE OF EXAM: 09/29/2021 COMPARISON: Chest x-ray 09/26/2020 HISTORY: Covid positive, abnormal chest x-ray TECHNIQUE: Single frontal view of the chest is obtained. FINDINGS: Patchy basilar density is noted. Aorta is dense and ectatic. Technique somewhat apical arvin dotic. No evident pneumothorax or pleural effusion. Cardiac mediastinal silhouette is stable. IMPRESSION: Basilar atelectasis, correlate to exclude pneumonia, aortic ectasia.
[2021-09-29] MEDS ORDERED: FERROUS SULFATE 325 MG TAB PO SCH (09:00)
[2021-09-29 11:30] LABS: C Reactive Protein 3.3 mg/dL (0.00-0.80)
[2021-09-29] MEDS: PRAMIPEXOLE 1 MG TAB PO SCH ×2 (16:24→20:31)
[2021-09-29] MEDS: RIVAROXABAN 20 MG TAB PO SCH (16:25)
[2021-09-29] MEDS: REMDESIVIR 100 MG in SODIUM CHLORIDE 0.9% 250 ML IVPB SCH (16:25)
--- NOTE | 2021-09-29 17:14 | P.PN ---
Subjective Progress Note Date: 09/29/21 Principal diagnosis: Shortness of breath, cough 85-year-old white male patient of Dr. Thompson who came into the emergency department on 09/26/2021 for evaluation of shortness of breath, cough and fatigue, onset of symptoms was one week ago and patient tested positive for COVID-19 infection 3 days ago. Apparently his also tested positive for COVID-19, however she is doing better than her , and did not require to come into the emergency department. Reports some cough with sputum production, nausea, significant fatigue, chills. Per EMS report his oxygen saturation was around 89% and she was placed on supplemental oxygen, patient reports completed COVID-19 vaccination with 2 shots, no booster. Patient has a history of coronary artery disease, hypertension, hyperlipidemia, sleep apnea, prostate disorder, previous history of CVA with left-sided facial weakness, multiple TIAs, Parkinson's disease, thoracic spondylosis, previous history of kidney stones, UTIs, peripheral vascular disease, nonsmoker. His chest x-ray showed patchy basilar densities. Patient is resting comfortably on the gurney in the emergency department, he is on 2 L of oxygen, with his pulse ox is 93-90%, low- grade fever with a temp of 99F, blood pressure stable, breathing fairly co mfortably, lung sounds revealed scattered rhonchi at the bases, no complaints of chest pain, no lower extremity edema. EKG showed sinus rhythm. The patient is seen today 09/27/2021 in follow-up on the regular medical floor. He is currently sitting up at the bedside. Awake and alert in no acute distress. He is maintaining good O2 saturations in the 90s on 2 L/m per nasal cannula. He is receiving normal saline at 75 ML's per hour. White count 5.7. Hemoglobin 11.0. Platelets 137. D-dimer 0.87. Sodium 139. Potassium 4.2. Creatinine 0.6. LDH 284. C-reactive protein 13.1. Pro-calcitonin 1.84. He is on day #2 of Remdesivir. Anticoagulated with Xarelto. Continued on Decadron, vitamin supplements. On 09/28/2021 patient seen in follow-up on medical surgical floor. He is sittin g up in a recliner, breathing very comfortably, he is currently on 2 L of oxygen pulse ox of 96%, he is working on his incentive spirometer, he is able to achieve 2.5 L on the today, lung sounds reveal some chest congestion, scattered rhonchi, he states his cough is non-productive, no complaints of chest discomfort, overall he looks and feels better, today is day 3 of Remdesivir, he continues on his home dose Xarelto, he continues on Decadron, and vitamin supplements. Today's labs have been reviewed, his white blood cell count is 4.8, hemoglobin is 10.1, electrolytes and renal profile are unremarkable, d- dimer is down to 0.87 and yesterday's labs, his inflammatory markers were improving and LDH was down to 284 and CRP was down to 13.1. Pro-calcitonin level came back elevated and was at 2.42 on admission, and down to 1.84 on yesterday's labs. On 09/29/2021 patient seen in follow-up on medical surgical floor, he is on room air, sitting up in a chair, breathing comfortably, he is on of Remdesivir treatments for his COVID-19 pneumonia, this is day 4 of treatment, he also remains on Decadron 6 mg daily, he is on Ventolin inhaler, he is on multivitamins, and he is on home dose Xarelto. Looks very comfortable, sitting up in the recliner, he is getting ready to eat lunch. No complaints of worsening dyspnea, no cough, lung sounds reveal diminished breath sounds at the bases, with minimal crackles, he is on room air pulse ox is 94%, vital signs have been stable, no fever or chills overnight, follow-up chest x-ray today showing patchy basilar density, no evident pneumothorax or pleural effusion. Today's labs have been reviewed, his d-dimer is 0.91, and his inflammatory markers continue to improve and LDH is down to 249, and his CRP is down to 3.3, his pro-calcitonin level was elevated at 1.84, and for that reason patient was placed on Augmentin for empiric antibiotic coverage. Vitals have been stable, patient is breathing comfortably, she is tolerating oral intake, no nausea vomiting or diarrhea. Objective - Vital Signs Vital signs: Vital Signs Temp 98.1 F 09/29/21 15:04 Pulse 61 09/29/21 15:04 Resp 18 01/10/22 15:04 BP 146/79 09/29/21 15:04 Pulse Ox 94 L 09/29/21 15:04 Intake & Output 09/28/21 09/29/21 09/29/21 18:59 06:59 18:59 Output Total 685 300 50 Balance -685 -300 -50 Output: Urine 685 300 50 Other: Voiding Method Urinal Urinal Urinal Diaper Diaper Diaper # Voids 2 1 - Exam GENERAL EXAM: Alert, very pleasant, 85-year-old white male, on room air with a pulse ox of 96%, comfortable in no apparent distress. HEAD: Normocephalic/atraumatic. EYES: Normal reaction of pupils, equal size. Conjunctiva pink, sclera white. NOSE: Clear with pink turbinates. THROAT: No erythema or exudates. NECK: No masses, no JVD, no thyroid enlargement, no adenopathy. CHEST: No chest wall deformity. Symmetrical expansion. LUNGS: Equal air entry with diffuse bilateral rhonchi CVS: Regular rate and rhythm, normal S1 and S2, no gallops, no murmurs, no rubs ABDOMEN: Soft, nontender. No hepatosplenomegaly, normal bowel sounds, no guarding or rigidity. EXTREMITIES: No clubbing, no edema, no cyanosis, 2+ pulses and upper and lower extremities. MUSCULOSKELETAL: Muscle strength and tone normal. SPINE: No scoliosis or deformity SKIN: No rashes CENTRAL NERVOUS SYSTEM: Alert and oriented -3. No focal deficits, tone is normal in all 4 extremities. PSYCHIATRIC: Alert and oriented -3. Appropriate affect. Intact judgment and insight. - Labs CBC & Chem 7: 09/28/21 08:48 09/28/21 08:48 Labs: Abnormal Lab Results - Last 24 Hours (Table) 09/29/21 09/29/21 Range/Units 06:35 06:35 D-Dimer 0.91 H (<0.60) mg/L FEU Lactate Dehydrogenase 249 H (120-246) U/L C-Reactive Protein 3.30 H (0.00-0.80) mg/dL Assessment and Plan Plan: Assessment: #1. Acute hypoxic respiratory failure related to acute COVID-19 related pneumonia, patient presented to the emergency department on 09/26/2021 with a one-week history of symptoms including fatigue, fever, worsening dyspnea, and cough. He is status post completed vaccination with 2 injections, no booster (unknown what type). Patient is a candidate for Remdesivir and was started on 09/26/2021 #2. Mild hyponatremia likely related to dehydration, resolved with IV hydration #3. Hypokalemia, improved #4. Elevated inflammatory markers related to the COVID-19 pneumonia, improved #5. Hypertension #6. Hyperlipidemia #7. Coronary artery disease with previous history of PCI and stenting #8. Previous history of CVA #9. Glaucoma #10. History of sleep apnea #11. Prostate disorder #12. Previous history of GI bleeding #13. Parkinson's #14. Previous history of UTIs and kidney stones #15. Elevated pro-, with Possibility of Bacterial Infection, Rule out possibility of underlying urinary tract infection Plan: Continue Remdesivir, and today is day 4 of treatment Continue current dose Decadron and Lovenox Continue Xarelto D-dimer level, inflammatory markers are improving Patient is breathing much more comfortable, he is on room air he remains on Augmentin for empiric antibiotic coverage, however still not clear where his infection may be In view of patient's previous history of UTI and kidney stones we'll send a urinalysis with the reflex to culture Otherwise clinically remains very stable, tomorrow he'll be completing his course of Remdesivir If continues to be stable may consider discharge home in the next 24 hours I performed a history & physical examination of the patient and discussed their management with my nurse practitioner, Asia Galan. I reviewed the nurse practitioner's note and agree with the documented findings and plan of care. Lung sounds are positive for diffuse rhonchi throughout the lung leon. The findings and the impression was discussed with the patient. I attest to the documentation by the nurse practitioner. Time with Patient: Less than 30
--- NOTE | 2021-09-29 18:21 | P.PN ---
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 He was readmitted from April 28 through May 06, 2020, at which time he was seen by multiple consultants including neurology for seizure activity and adjustments were made on Keppra and patient was started on Vimpat. He was also treated for acute catheter associated urinary tract infection, urinary retention, hematuria and was seen by Dr. Gaspar. Patient was seen by Dr. Reina for hyponatremia with SIADH. Patient was stabilized and discharged back to [facility]. Patient is currently seeing Dr. Byrd and is stable on the current seizure medications. patient presented to the emergency department at [facility] on 09/26/2021 for worsening shortness of breath, fatigue and worsening dyspnea he was tested positive for COVID-19 3 days ago apparently him and his both were exposed and tested positive he came into the emergency department today been dyspneic with severe hypoxia pulse ox is running in the 80s patient is more symptomatic with fatigue tiredness and overall generalized symptom cough productive phlegm. Patient was started on 2 L 4 to brought his pulse ox to 93 percentile felt slightly bit more comfortable. The rest of his lab including his marker in cluding pro-calcitonin was 2.4 to, C-reactive protein was 15.8, LDH was 785, lactic acid was normal d-dimer was elevated at 1.08. Chest x-ray was performed and showed basilar atelectasis like patchy infiltrate in both side without any major fibrosis no consolidation and a larger area. The patient been on anticoagulation did not require to go for CTA specially with his d-dimer being elevated. Patient will be admitted to the hospital start on dexamethasone, updraft, O2 will be seen pulmonary consider the possibility of starting him on antiviral medication. 09/27: Patient is assessed on 4 S. he is found lying in bed resting comfortably. He is currently on 2 L of oxygen pulse ox at 95%. He was started yesterday on Remdesivir. Patient denies any discomfort or chest pain. He does have some shortness of breath specifically with exertion. Patient has been extremely emotional and upset due to being away from his who is ill. He was able to talk to his on the phone today which seemed to help ease some of his anxiety. Patient has been afebrile, heart rate 80, respirations 20, blood pressure 154/90, 95% on 2 L O2. W BC 5.7, hemoglobin 11.0, platelets 137, potassium was 3.2 which was replaced yesterday. We'll repeat tomorrow. 09/28: Patient is assessed on 4 S. he is resting comfortably in bed. He is currently on 2 L of oxygen with a pulse ox of 94%. He is on dose 3/5 Re mdesivir. Patient denies any discomfort or chest pain. Denies any shortness of breath with exertion or conversation at this time. Patient was able to speak with his on the phone. He is less anxious today compared to yesterday. Patient remains afebrile. Heart rate 73, respirations 18, blood pressure 150/84, pulse ox 96% 2L 09/29: Patient is seen resting comfortably, requiring his fourth day of Remdesivir , on room air, patient denies any shortness of breath fever or chills, no aspiration, no new fevers, WBC count at 4.8, d-dimer Similac 0.9, no new chemistries noted today, CRP better at 3.3, from a previous of 13.1, anticipate discharge in 24 hours, after completion of remdesivir #5, with room air needs for therapy is still needs to be evaluated, along with ambulatory pulse ox, ROS Constitutional: patient had fever, chills, lethargy, fatigue and tiredness with no weight loss. Eyes: denies decreased vision, denies diplopia, denies discharge, denies pain Ears: deny: decreased hearing Ears, nose, mouth and throat: Denies dental pain, Denies headache, Denies nasal discharge, Denies nose pain Cardiovascular: Denies chest pain, Denies decreased exercise tolerance, Denies edema, Denies high blood pressure, Denies irregular heart beat, Denies palpita tions, Denies paroxysmal nocturnal dyspnea, Denies rapid heart beat, Denies shortness of breath Respiratory: developed worsening shortness of breath with dyspnea, cough, significant shortness of breath with minimum exertion. also patient is having more wheezes. Gastrointestinal: Denies abdominal pain, Denies change in bowel habits, Denies coffee ground emesis, Denies early satiety, Denies excessive gas, Denies heartburn, Denies hematemesis, Denies hematochezia, Denies loss of appetite, Denies nausea, Denies vomiting Genitourinary: Denies dysuria, Denies flank pain, Denies kidney stones, Denies menorrhagia, Denies urgency, Denies urinary frequency Musculoskeletal: Endorses gait dysfunction, endorses limitation of motion, Denies morning stiffness, Denies muscle cramps Integumentary: Denies rash, Denies wounds, Denies brittle nails, Denies change in hair/nails, Denies darkening of skin Neurological: Endorses balance difficulties, Denies change in speech, Denies double vision, Denies gait dysfunction, Denies loss of vision, Denies motor disturbance, Denies numbness, Denies paralysis, Denies paresthesias, Denies seizures Psychiatric: Denies anxiety, Denies depression Endocrine: Denies excessive sweating, Denies excessive thirst, Denies high blood sugars, Denies palpitations Hematologic/Lymphatic: Denies easy bruising, Denies lymphadenopathy Physical Examination Gen: This is an 85-year-old male. He is resting in bed and appears comfortable. HEENT: Head is atraumatic, normocephalic. Pupils equal, round. Sclerae is anicteric. Left arm tremor. NECK: Supple. No JVD. No lymphadenopathy. No thyromegaly. LUNGS: decreased breath sounds bilaterally with fine rhonchi positive mild crackles in the bases with mild expiratory wheezes. HEART: Regular rate and rhythm. Systolic ejection murmur. ABDOMEN: Soft. Bowel sounds are present. No masses. No tenderness. EXTREMITIES: No pedal edema. No calf tenderness. NEUROLOGICAL: Patient answers questions appropriately and follows command no motor or sensory deficit noted Assessment and Plan 1. acute hypoxic respiratory failure: Secondary to COVID-19 pneumonitis. Patie nt be on O2, updraft treatment, supportive care also pulmonary. 2. COVID-19 pneumonitis: Patient will be on Remdesivir along with Decadron, updraft treatment and O2 continue supportive care repeat COVID-19 marker in the next few days. 3. history of coronary artery disease post PCI and stent placement still on secondary prevention and seeing cardiology regular basis. 4. Parkinson disease on Sinemet. Sinemet ER 25/101 tab twice a day and each daily. Mirapex milligram by mouth daily 5. History of CVA. Continue aspirin and Lipitor 40 mg daily, does not have any worsening of residual this point. He'll seen neurology on regular basis. 6. Hyperlipidemia. Home medications are Lipitor 40 mg daily, Zetia 7. Seizure disorder, follows with Dr. Byrd. Neurology consult. Continue Keppra 500 twice a day 8. History of Bilateral pulmonary embolism originating from DVT right leg. Patient is on Xarelto. Patient had follow-up CAT scan and venous Doppler to assess the duration of xarelto. May need Xarelto on discharge. Patient is at high risk of recurrent PE due to being nonambulatory 9. Benign prostatic hypertrophy with history of urinary retention that required chronic Olivo catheter. Patient is on Flomax 0.4 mg twice daily. 10. Restless leg syndrome. On Mirapex 1 mg twice daily. 11. Generalized debility with decreased lower extremity strength. Patient was getting progressively weak at home PTOT consult for possible rehab placement 12. Hypokalemia. Potassium replacement per protocol. Repeat potassium tomorrow. 13 GI prophylaxis. Pepcid 20 mg daily 14. DVT prophylaxis. Will resume Xarelto. CODE STATUS: Full code Patient to be admitted to the hospital for a minimum of 2 night stay. Discharge plan: Possibly home Wednesday Current Medications Acetam/Butalbital/Caffeine/Codeine (Buta/Apap/Caf/Cod 31-134-17-30 Cap) 1 each PO Q6H PRN PRN Reason: Migraine Headache Acetaminophen (Acetaminophen Tab 500 Mg Tab) 1,000 mg PO Q6HR PRN PRN Reason: Fever>101 Last Admin: 09/29/21 08:00 Dose: 1,000 mg Documented by: Albuterol Sulfate (Albuterol Hfa Inhaler) 2 puff INHALATION RT-Q6H MOI Last Admin: 09/29/21 12:03 Dose: 2 puff Documented by: Albuterol Sulfate (Albuterol Hfa Inhaler) 2 puff INHALATION RT-Q6H PRN PRN Reason: Shortness Of Breath Or Wheezing Last Admin: 09/27/21 20:10 Dose: 2 puff Documented by: Amlodipine Besylate (Amlodipine 5 Mg Tab) 5 mg PO DAILY [facility] Last Admin: 09/29/21 08:01 Dose: 5 mg Documented by: Amoxicillin/Clavulanate Potassium (Amoxic-Pot Clav 875-125mg 1 Each Tab) 1 each PO Q12HR [facility] Last Admin: 09/29/21 08:01 Dose: 1 each Documented by: Ascorbic Acid (Ascorbic Acid 500 Mg Tab) 500 mg PO BID [facility] Last Admin: 09/29/21 08:01 Dose: 500 mg Documented by: Aspirin (Aspirin 81 Mg) 81 mg PO DAILY [facility] Last Admin: 09/29/21 08:02 Dose: 81 mg Documented by: Atorvastatin Calcium (Atorvastatin 40 Mg Tab) 40 mg PO HS@2000 [facility] Last Admin: 09/28/21 21:05 Dose: 40 mg Documented by: Brimonidine Tartrate (Brimonidine Tartrate 0.2% Drops 5 Ml Btl) 1 drops LEFT EYE BID [facility] Last Admin: 09/29/21 08:02 Dose: 1 drops Documented by: Carbidopa/Levodopa (Carbidopa-Levodopa Er 25-100mg 1 Each Tablet.Er) 2 each PO TID [facility] Last Admin: 09/29/21 16:25 Dose: 2 each Documented by: Carvedilol (Carvedilol 12.5 Mg Tab) 12.5 mg PO BID-W/MEALS [facility] Last Admin: 09/29/21 16:24 Dose: 12.5 mg Documented by: Cholecalciferol (Cholecalciferol 125 Mcg (5000 Iu) Tablet) 125 mcg PO DAILY [facility] Last Admin: 09/29/21 08:01 Dose: 125 mcg Documented by: Dexamethasone Sodium Phosphate (Dexamethasone Sod Phosphate 10 Mg/Ml 1 Ml Vial) 6 mg IVP DAILY [facility] Last Admin: 09/29/21 08:02 Dose: 6 mg Documented by: Escitalopram Oxalate (Escitalopram 10 Mg Tab) 10 mg PO DAILY [facility] Last Admin: 09/29/21 08:01 Dose: 10 mg Documented by: Ferrous Sulfate (Ferrous Sulfate 325 Mg Tab) 325 mg PO MoWeFr@0900 [facility] Last Admin: 09/29/21 07:59 Dose: 325 mg Documented by: Fludrocortisone Acetate (Fludrocortisone 0.1 Mg Tab) 0.1 mg PO DAILY [facility] Last Admin: 09/29/21 08:01 Dose: 0.1 mg Documented by: Hydralazine HCl (Hydralazine Hcl 25 Mg Tab) 25 mg PO BID [facility] Last Admin: 09/29/21 08:01 Dose: 25 mg Documented by: Remdesivir 100 mg/ Sodium (Chloride) 250 mls @ 250 mls/hr IVPB DAILY@1800 [facility] Stop: 09/30/21 18:59 Last Admin: 09/29/21 16:25 Dose: 250 mls/hr Documented by: Latanoprost (Latanoprost 0.005% Ophth Drops 2.5 Ml Btl) 1 drops BOTH EYES HS@2100 [facility] Last Admin: 09/28/21 21:05 Dose: 1 drops Documented by: Levetiracetam (Levetiracetam 500 Mg Tab) 500 mg PO BID [facility] Last Admin: 09/29/21 08:01 Dose: 500 mg Documented by: Losartan Potassium (Losartan 50 Mg Tab) 100 mg PO DAILY [facility] Last Admin: 09/29/21 07:59 Dose: 100 mg Documented by: Montelukast Sodium (Montelukast 10 Mg Tab) 10 mg PO HS@2100 [facility] Last Admin: 09/28/21 21:06 Dose: 10 mg Documented by: Naloxone HCl (Naloxone 0.4 Mg/Ml 1 Ml Vial) 0.2 mg IV Q2M PRN PRN Reason: Opioid Reversal Ondansetron HCl (Ondansetron 4 Mg/2 Ml Vial) 4 mg IVP Q8HR PRN PRN Reason: Nausea And Vomiting Last Admin: 09/28/21 21:22 Dose: 4 mg Documented by: Potassium Chloride (Potassium Chloride Er 10 Meq Tab.Er.Prt) 10 meq PO [facility] Last Admin: 09/28/21 21:06 Dose: 10 meq Documented by: Pramipexole Dihydrochloride (Pramipexole 1 Mg Tab) 1 mg PO DAILY@1700,2000 [facility] Last Admin: 09/29/21 16:24 Dose: 1 mg Documented by: Rivaroxaban (Rivaroxaban 20 Mg Tab) 20 mg PO DAILY@1700 [facility]; Protocol Last Admin: 09/29/21 16:25 Dose: 20 mg Documented by: Tamsulosin HCl (Tamsulosin 0.4 Mg Cap.Er.24h) 0.4 mg PO DAILY [facility] Last Admin: 09/29/21 08:00 Dose: 0.4 mg Documented by: Timolol Maleate (Timolol 0.5% Ophth Drops 5 Ml Btl) 1 drops BOTH EYES DAILY [facility] Last Admin: 09/29/21 08:02 Dose: 1 drops Documented by: Zinc Sulfate (Zinc Sulfate 220 Mg Cap) 220 mg PO DAILY [facility] Last Admin: 09/29/21 08:01 Dose: 220 mg Documented by: Laboratory Results - Last 24 Hours 09/29/21 09/29/21 06:35 06:35 D-Dimer 0.91 H Lactate Dehydrogenase 249 H C-Reactive Protein 3.30 H Vital Signs Temp 98.1 F 09/29/21 15:04 Pulse 61 09/29/21 15:04 Resp 18 09/29/21 15:04 BP 146/79 09/29/21 15:04 Pulse Ox 94 L 09/29/21 15:04 Intake & Output 09/28/21 09/29/21 09/29/21 18:59 06:59 18:59 Output Total 685 300 50 Balance -685 -300 -50 Output: Urine 685 300 50 Other: Voiding Method Urinal Urinal Urinal Diaper Diaper Diaper # Voids 2 1 Objective - Vital Signs Vital signs: Vital Signs Temp 98.1 F 09/29/21 15:04 Pulse 61 09/29/21 15:04 Resp 18 09/29/21 15:04 BP 146/79 09/29/21 15:04 Pulse Ox 94 L 09/29/21 15:04 Intake & Output 09/28/21 09/29/21 09/29/21 18:59 06:59 18:59 Output Total 685 300 50 Balance -685 -300 -50 Output: Urine 685 300 50 Other: Voiding Method Urinal Urinal Urinal Diaper Diaper Diaper # Voids 2 1 - Constitutional General appearance: Present: cooperative - EENT Eyes: Present: EOMI ENT: Present: NA/AT, normal oropharynx - Neck Neck: Present: normal ROM - Respiratory Respiratory: bilateral: CTA, negative: diminished, dullness, rales, rhonchi, wheezing - Cardiovascular Rhythm: regular Heart sounds: normal: S1, S2 Abnormal Heart Sounds: Absent: systolic murmur, diastolic murmur, rub, S3 Gallop, S4 Gallop, click, other - Gastrointestinal General gastrointestinal: Present: normal bowel sounds, soft - Integumentary Integumentary: Present: normal - Neurologic Neurologic: Present: CNII-XII intact - Musculoskeletal Musculoskeletal: Present: gait normal - Psychiatric Psychiatric: Present: A&O x's 3, appropriate affect, intact judgment & insight - Labs CBC & Chem 7: 09/28/21 08:48 09/28/21 08:48 Labs: Abnormal Lab Results - Last 24 Hours (Table) 09/29/21 09/29/21 Range/Units 06:35 06:35 D-Dimer 0.91 H (<0.60) mg/L FEU Lactate Dehydrogenase 249 H (120-246) U/L C-Reactive Protein 3.30 H (0.00-0.80) mg/dL
[2021-09-29 19:57] LABS: Appearance,Urine Clear (Clear); Bilirubin,Urine Negative (Negative); Blood,Urine Negative (Negative); Color,Urine Yellow; Glucose,Urine (UA) Negative (Negative); Ketones,Urine Negative (Negative); Leukocyte Esterase,Urine Negative (Negative); Nitrite,Urine Negative (Negative); Protein,Urine Negative (Negative); Specific Gravity,Urine 1.015 (1.001-1.035); Urobilinogen,Urine <2.0 mg/dL (<2.0)
[2021-09-29] MEDS: POTASSIUM CHLORIDE ER 10 MEQ TAB.ER.PRT PO SCH (20:30)
[2021-09-29] MEDS: ATORVASTATIN 40 MG TAB PO SCH (20:30)
[2021-09-29] MEDS: MONTELUKAST 10 MG TAB PO SCH (20:30)
[2021-09-29] MEDS: LATANOPROST 0.005% OPHTH DROPS 2.5 ML BTL BOTH EYES SCH (20:31)
[2021-09-30] MEDS: ONDANSETRON 4 MG/2 ML VIAL IVP PRN (05:51)
[2021-09-30] MEDS: AMOXIC-POT CLAV 875-125MG 1 EACH TAB PO SCH (08:26)
[2021-09-30] MEDS: CARBIDOPA-LEVODOPA ER 25-100MG 1 EACH TABLET.ER PO SCH (08:26)
[2021-09-30] MEDS: ASPIRIN 81 MG PO SCH (08:26)
[2021-09-30] MEDS: amLODIPine 5 MG TAB PO SCH (08:26)
[2021-09-30] MEDS: ASCORBIC ACID 500 MG TAB PO SCH (08:26)
[2021-09-30] MEDS: carvediloL 12.5 MG TAB PO SCH (08:26)
[2021-09-30] MEDS: LOSARTAN 50 MG TAB PO SCH (08:27)
[2021-09-30] MEDS: hydrALAZINE HCL 25 MG TAB PO SCH (08:27)
[2021-09-30] MEDS: ESCITALOPRAM 10 MG TAB PO SCH (08:27)
[2021-09-30] MEDS: TAMSULOSIN 0.4 MG CAP.ER.24H PO SCH (08:27)
[2021-09-30] MEDS: CHOLECALCIFEROL 125 MCG (5000 IU) TABLET PO SCH (08:27)
[2021-09-30] MEDS: ZINC SULFATE 220 MG CAP PO SCH (08:27)
[2021-09-30] MEDS: levETIRAcetam 500 MG TAB PO SCH (08:27)
[2021-09-30] MEDS: FLUDROCORTISONE 0.1 MG TAB PO SCH (08:27)
[2021-09-30] MEDS: BRIMONIDINE TARTRATE 0.2% DROPS 5 ML BTL LEFT EYE SCH (08:28)
[2021-09-30] MEDS: DEXAMETHASONE SOD PHOSPHATE 10 MG/ML 1 ML VIAL IVP SCH (08:28)
[2021-09-30] MEDS: TIMOLOL 0.5% OPHTH DROPS 5 ML BTL BOTH EYES SCH (08:29)
[2021-09-30] MEDS: ALBUTEROL HFA INHALER INHALATION SCH ×2 (09:27→11:55)
[2021-09-30 11:03] LABS: Basophils # (A) 0.01 X 10*3/uL (0.00-0.10); Basophils % (A) 0.3 %; Eosinophils # (A) 0 X 10*3/uL (0.04-0.35); Eosinophils % (A) 0 %; HCT 33.1 % (39.6-50.0); HGB 10.9 g/dL (13.0-17.0); Lymphocytes # (A) 0.51 X 10*3/uL (0.90-5.00); Lymphocytes % (A) 17.8 %; MCH 30.6 pg (27.0-32.0); MCHC 32.9 g/dL (32.0-37.0); Mean Platelet Volume 10.6 fL (9.5-12.2); Monocytes # (A) 0.26 X 10*3/uL (0.20-1.00); Monocytes % (A) 9.1 %; Neutrophils # (A) 1.97 X 10*3/uL (1.80-7.70); Neutrophils % (A) 68.6 %; Platelet Count 170 X 10*3/uL (140-440); RBC 3.56 X 10*6/uL (4.40-5.60); WBC 2.87 X 10*3/uL (4.50-10.00)
[2021-09-30 11:24] VITALS: BP 150/88; PULSE 80; RESP 19; TEMP 97.9
--- NOTE | 2021-09-30 11:37 | P.DS ---
Providers Date of admission: 09/26/21 14:02 Expected date of discharge: 09/30/21 Attending physician: Louis Lawson Consults: 09/26/21 14:04 Consult Physician Routine Consulting Provider: Stephan Pedroza Reason/Comments: covid Do you want consulting provider notified?: Yes Primary care physician: Louis Lawson [facility] Course: history of present illness: This is an 85-year-old male patient of my office patient with past medical history of coronary artery disease, Parkinson's disease, recurrent headaches, severe PAD, generalized osteoarthritis, obstructive sleep apnea on CPAP, history of total left hip arthroplasty with subsequent bilateral pulmonary embolism and large DVT in the right leg for which patient is on Xarelto. He was readmitted f rom April 28 through May 06, 2020, at which time he was seen by multiple consultants including neurology for seizure activity and adjustments were made on Keppra and patient was started on Vimpat. He was also treated for acute catheter associated urinary tract infection, urinary retention, hematuria and was seen by Dr. Gaspar. Patient was seen by Dr. Reina for hyponatremia with SIADH. Patient was stabilized and discharged back to [facility]. Patient is currently seeing Dr. Byrd and is stable on the current seizure medications. patient presented to the emergency department at [facility] on 09/26/2021 for worsening shortness of breath, fatigue and worsening dyspnea he was tested positive for COVID-19 3 days ago apparently him and his both were exposed and tested positive he came into the emergency department today been dyspneic with severe hypoxia pulse ox is running in the 80s patient is more symptomatic with fatigue tiredness and overall generalized symptom cough productive phlegm. Patient was started on 2 L 4 to brought his pulse ox to 93 percentile felt slightly bit more comfortable. The rest of his lab including his marker including pro-calcitonin was 2.4 to, C-reactive protein was 15.8, LDH was 785, lactic acid was normal d-dimer was elevated at 1.08. Chest x-ray was performed and showed basilar atelectasis like patchy infiltrate in both side without any major fibrosis no consolidation and a larger area. The patient been on anticoagulation did not require to go for CTA specially with his d-dimer being elevated. Patient will be admitted to the hospital start on dexamethasone, updraft, O2 will be seen pulmonary consider the possibility of starting him on antiviral medication. 09/27: Patient is assessed on 4 S. he is found lying in bed resting comfortably. He is currently on 2 L of oxygen pulse ox at 95%. He was started yesterday on Remdesivir. Patient denies any discomfort or chest pain. He does have some shortness of breath specifically with exertion. Patient has been extremely emotional and upset due to being away from his who is ill. He was able to talk to his on the phone today which seemed to help ease some of his anxiety. Patient has been afebrile, heart rate 80, respirations 20, blood pressure 154/90, 95% on 2 L O2. W BC 5.7, hemoglobin 11.0, platelets 137, potassium was 3.2 which was replaced yesterday. We'll repeat tomorrow. 09/28: Patient is assessed on 4 S. he is resting comfortably in bed. He is currently on 2 L of oxygen with a pulse ox of 94%. He is on dose 3/5 Remdesivir. Patient denies any discomfort or chest pain. Denies any shortness of breath with exertion or conversation at this time. Patient was able to speak with his on the phone. He is less anxious today compared to yesterday. Patient remains afebrile. Heart rate 73, respirations 18, blood pressure 150/84, pulse ox 96% 2L 09/29: Patient is seen resting comfortably, requiring his fourth day of Remdesivir , on room air, patient denies any shortness of breath fever or chills, no aspiration, no new fevers, WBC count at 4.8, d-dimer Similac 0.9, no new chemistries noted today, CRP better at 3.3, from a previous of 13.1, anticipate discharge in 24 hours, after completion of remdesivir #5, with room air needs for therapy is still needs to be evaluated, along with ambulatory pulse ox, 09/30: Patient is respiratory status is stable. He will be completing his course of Remdesivir day. Pulse ox is 96% on room air. His been afebrile, heart rate in the 70s and 80s, blood pressure 150/88. Repeat blood work reveals WBC 2.8, h emoglobin 10.9, platelet count 170. D-dimer 1.07. Pro-calcitonin 0.43. Urinalysis from last evening was negative. Patient has been seen and followed by pulmonary medicine and cleared for discharge. Patient will be discharged today in stable condition. Discharge diagnoses 1. acute hypoxic respiratory failure: Secondary to COVID-19 pneumonitis. 2. COVID-19 pneumonitis 3. history of coronary artery disease post PCI and stent placement still on secondary prevention and seeing cardiology regular basis. 4. Parkinson disease 5. History of CVA. 6. Hyperlipidemia. 7. Seizure disorder, follows with Dr. Byrd. 8. History of Bilateral pulmonary embolism originating from DVT right leg. 9. Benign prostatic hypertrophy with history of urinary retention that required chronic Olivo catheter. 10. Restless leg syndrome. 11. Generalized debility with decreased lower extremity strength. 12. Hypokalemia. CODE STATUS: Full code Greater than 35 minutes was utilized and coordinating patient's discharge. Impression and plan of care have been directed as dictated by the signing physician. Suly Gallo nurse practitioner acting as scribe for signing physician. Patient Condition at Discharge: Good Plan - Discharge Summary Discharge Rx Participant: Yes New Discharge Prescriptions: New Amoxic-Pot Clav 875-125Mg [Augmentin 875-125] 1 each PO Q12HR #10 tab Dexamethasone [Decadron] 6 mg PO DAILY #5 tablet Zinc Sulfate [Orazinc] 220 mg PO DAILY cap Ascorbic Acid [Vitamin C] 500 mg PO BID tab Continue Montelukast [Singulair] 10 mg PO HS@2100 Ferrous Sulfate [Iron (65 MG Elemental)] 325 mg PO DIRECTED Rosuvastatin Calcium 20 mg PO HS@2000 Latanoprost/Pf [Latanoprost 0.005% Eye Drop] 1 drop BOTH EYES HS@2100 Tamsulosin [Flomax] 0.4 mg PO DAILY Rivaroxaban [Xarelto] 20 mg PO DAILY@1700 Brimonidine Tartrate [Alphagan P 0.2% Ophth Soln] 1 drops LEFT EYE BID Pramipexole [Mirapex] 1 mg PO DAILY@1700,2000 Cholecalciferol [Vitamin D3 (25 Mcg = 1000 Iu)] 125 mcg PO DAILY Escitalopram [Lexapro] 10 mg PO DAILY levETIRAcetam [Keppra] 500 mg PO BID Aspirin EC [Ecotrin Low Dose] 81 mg PO DAILY Losartan Potassium 100 mg PO DAILY Timolol 0.5% Ophth Soln [Timoptic 0.5% Ophth Soln] 1 drop BOTH EYES DAILY Carbidopa-Levodopa ER 25-100Mg [Sinemet CR 25-100 mg] 2 tab PO TID Buta/APAP/Caf/Cod 68-069-33-30 [Fioricet w/Cod 71-776-10-30MG] 1 - 2 cap PO Q6H PRN PRN Reason: Migraine Headache Carvedilol [Coreg] 12.5 mg PO BID amLODIPine [Norvasc] 5 mg PO DAILY Fludrocortisone [Florinef] 0.1 mg PO DAILY Potassium Chloride ER [K-Dur 10] 10 meq PO HS hydrALAZINE HCL [Apresoline] 25 mg PO BID Discharge Medication List Montelukast [Singulair] 10 mg PO HS@209909/19/15 [History] Ferrous Sulfate [Iron (65 MG Elemental)] 325 mg PO DIRECTED 07/14/18 [History] Latanoprost/Pf [Latanoprost 0.005% Eye Drop] 1 drop BOTH EYES HS@209904/16/20 [History] Rosuvastatin Calcium 20 mg PO HS@199904/16/20 [History] Tamsulosin [Flomax] 0.4 mg PO DAILY 04/28/20 [History] Rivaroxaban [Xarelto] 20 mg PO DAILY@169905/19/20 [History] Brimonidine Tartrate [Alphagan P 0.2% Ophth Soln] 1 drops LEFT EYE BID 11/26/20 [History] Cholecalciferol [Vitamin D3 (25 Mcg = 1000 Iu)] 125 mcg PO DAILY 11/26/20 [History] Escitalopram [Lexapro] 10 mg PO DAILY 11/26/20 [History] Pramipexole [Mirapex] 1 mg PO DAILY@11/26/20 [History] Buta/APAP/Caf/Cod [id number] [Fioricet w/Cod 60-372-07-30MG] 1 - 2 cap PO Q6H PRN 01/17/21 [History] Carbidopa-Levodopa ER 25-100Mg [Sinemet CR 25-100 mg] 2 tab PO TID 01/17/21 [History] levETIRAcetam [Keppra] 500 mg PO BID 01/17/21 [History] Aspirin EC [Ecotrin Low Dose] 81 mg PO DAILY 05/13/21 [History] Carvedilol [Coreg] 12.5 mg PO BID 05/13/21 [History] Fludrocortisone [Florinef] 0.1 mg PO DAILY 09/26/21 [History] Losartan Potassium 100 mg PO DAILY 09/26/21 [History] Potassium Chloride ER [K-Dur 10] 10 meq PO HS 09/26/21 [History] Timolol 0.5% Ophth Soln [Timoptic 0.5% Ophth Soln] 1 drop BOTH EYES DAILY 09/26/21 [History] amLODIPine [Norvasc] 5 mg PO DAILY 09/26/21 [History] hydrALAZINE HCL [Apresoline] 25 mg PO BID 09/26/21 [History] Amoxic-Pot Clav 875-125Mg [Augmentin 875-125] 1 each PO Q12HR #10 tab 09/30/21 [Rx] Ascorbic Acid [Vitamin C] 500 mg PO BID tab 09/30/21 [Rx] Dexamethasone [Decadron] 6 mg PO DAILY #5 tablet 09/30/21 [Rx] Zinc Sulfate [Orazinc] 220 mg PO DAILY cap 09/30/21 [Rx] Follow up Appointment(s)/Referral(s): Louis Lawson MD [Primary Care Provider] - 10/21/21 11:30 am Stephan Pedroza DO [Doctor of Osteopathic Medicine] - 10/28/21 3:00 pm [facility], [NON-STAFF] - As Needed Patient Instructions/Handouts: Coronavirus Disease 2019 (COVID-19), Pulse Oximetry (DC) Discharge Disposition: HOME SELF-CARE
--- NOTE | 2021-09-30 15:15 | P.PN ---
Subjective Progress Note Date: 09/30/21 Principal diagnosis: Shortness of breath, cough 85-year-old white male patient of Dr. Thompson who came into the emergency department on 09/26/2021 for evaluation of shortness of breath, cough and fatigue, onset of symptoms was one week ago and patient tested positive for COVID-19 infection 3 days ago. Apparently his also tested positive for COVID-19, however she is doing better than her , and did not require to come into the emergency department. Reports some cough with sputum production, nausea, significant fatigue, chills. Per EMS report his oxygen saturation was around 89% and she was placed on supplemental oxygen, patient reports completed COVID-19 vaccination with 2 shots, no booster. Patient has a history of coronary artery disease, hypertension, hyperlipidemia, sleep apnea, prostate disorder, previous history of CVA with left-sided facial weakness, multiple TIAs, Parkinson's disease, thoracic spondylosis, previous history of kidney stones, UTIs, peripheral vascular disease, nonsmoker. His chest x-ray showed patchy basilar densities. Patient is resting comfortably on the gurney in the emergency department, he is on 2 L of oxygen, with his pulse ox is 93-90%, low- grade fever with a temp of 99F, blood pressure stable, breathing fairly co mfortably, lung sounds revealed scattered rhonchi at the bases, no complaints of chest pain, no lower extremity edema. EKG showed sinus rhythm. The patient is seen today 09/27/2021 in follow-up on the regular medical floor. He is currently sitting up at the bedside. Awake and alert in no acute distress. He is maintaining good O2 saturations in the 90s on 2 L/m per nasal cannula. He is receiving normal saline at 75 ML's per hour. White count 5.7. Hemoglobin 11.0. Platelets 137. D-dimer 0.87. Sodium 139. Potassium 4.2. Creatinine 0.6. LDH 284. C-reactive protein 13.1. Pro-calcitonin 1.84. He is on day #2 of Remdesivir. Anticoagulated with Xarelto. Continued on Decadron, vitamin supplements. On 09/28/2021 patient seen in follow-up on medical surgical floor. He is sittin g up in a recliner, breathing very comfortably, he is currently on 2 L of oxygen pulse ox of 96%, he is working on his incentive spirometer, he is able to achieve 2.5 L on the today, lung sounds reveal some chest congestion, scattered rhonchi, he states his cough is non-productive, no complaints of chest discomfort, overall he looks and feels better, today is day 3 of Remdesivir, he continues on his home dose Xarelto, he continues on Decadron, and vitamin supplements. Today's labs have been reviewed, his white blood cell count is 4.8, hemoglobin is 10.1, electrolytes and renal profile are unremarkable, d- dimer is down to 0.87 and yesterday's labs, his inflammatory markers were improving and LDH was down to 284 and CRP was down to 13.1. Pro-calcitonin level came back elevated and was at 2.42 on admission, and down to 1.84 on yesterday's labs. On 09/29/2021 patient seen in follow-up on medical surgical floor, he is on room air, sitting up in a chair, breathing comfortably, he is on of Remdesivir treatments for his COVID-19 pneumonia, this is day 4 of treatment, he also remains on Decadron 6 mg daily, he is on Ventolin inhaler, he is on multivitamins, and he is on home dose Xarelto. Looks very comfortable, sitting up in the recliner, he is getting ready to eat lunch. No complaints of worsening dyspnea, no cough, lung sounds reveal diminished breath sounds at the bases, with minimal crackles, he is on room air pulse ox is 94%, vital signs have been stable, no fever or chills overnight, follow-up chest x-ray today showing patchy basilar density, no evident pneumothorax or pleural effusion. Today's labs have been reviewed, his d-dimer is 0.91, and his inflammatory markers continue to improve and LDH is down to 249, and his CRP is down to 3.3, his pro-calcitonin level was elevated at 1.84, and for that reason patient was placed on Augmentin for empiric antibiotic coverage. Vitals have been stable, patient is breathing comfortably, she is tolerating oral intake, no nausea vomiting or diarrhea. On 09/30/2021 patient seen in follow-up medical surgical floor, is currently on room air, breathing very comfortably with O2 saturations at 95-98%, vital signs have been stable, no worsening dyspnea, no chest discomfort, no cough, no fever or chills, he sitting up in the recliner, breathing comfortably. Denies any specific complaints. Objective - Vital Signs Vital signs: Vital Signs Temp 97.9 F 09/30/21 11:24 Pulse 80 09/30/21 11:24 Resp 19 09/30/21 11:24 BP 150/88 09/30/21 11:24 Pulse Ox 96 09/30/21 11:24 Intake & Output 09/29/21 09/30/21 09/30/21 18:59 06:59 18:59 Intake Total 250 Output Total 50 Balance 200 Intake: Intake, IV Titration 250 Amount Remdesivir 100 mg In 250 Sodium Chloride 0.9% 250 ml @ 250 mls/hr IVPB DAILY@1800 MOI Rx#: [id number] Output: Urine 50 Other: Voiding Method Urinal Urinal Diaper Diaper # Voids 1 # Bowel Movements 1 2 - Exam GENERAL EXAM: Alert, very pleasant, 85-year-old white male, on room air with a pulse ox of 96%, comfortable in no apparent distress. HEAD: Normocephalic/atraumatic. EYES: Normal reaction of pupils, equal size. Conjunctiva pink, sclera white. NOSE: Clear with pink turbinates. THROAT: No erythema or exudates. NECK: No masses, no JVD, no thyroid enlargement, no adenopathy. CHEST: No chest wall deformity. Symmetrical expansion. LUNGS: Equal air entry with diffuse bilateral rhonchi CVS: Regular rate and rhythm, normal S1 and S2, no gallops, no murmurs, no rubs ABDOMEN: Soft, nontender. No hepatosplenomegaly, normal bowel sounds, no guarding or rigidity. EXTREMITIES: No clubbing, no edema, no cyanosis, 2+ pulses and upper and lower extremities. MUSCULOSKELETAL: Muscle strength and tone normal. SPINE: No scoliosis or deformity SKIN: No rashes CENTRAL NERVOUS SYSTEM: Alert and oriented -3. No focal deficits, tone is normal in all 4 extremities. PSYCHIATRIC: Alert and oriented -3. Appropriate affect. Intact judgment and insight. - Labs CBC & Chem 7: 09/30/21 05:59 09/28/21 08:48 Labs: Abnormal Lab Results - Last 24 Hours (Table) 09/30/21 09/30/21 09/30/21 Range/Units 05:59 05:59 05:59 WBC 2.87 L (4.50-10.00) X 10*3/uL RBC 3.56 L (4.40-5.60) X 10*6/uL Hgb 10.9 L (13.0-17.0) g/dL Hct 33.1 L (39.6-50.0) % Immature Gran # 0.12 H (0.00-0.04) X 10*3/uL Lymphocytes # 0.51 L (0.90-5.00) X 10*3/uL Eosinophils # 0 L (0.04-0.35) X 10*3/uL D-Dimer 1.07 H (<0.60) mg/L FEU Procalcitonin 0.43 H (0.02-0.09) ng/mL Assessment and Plan Plan: Assessment: #1. Acute hypoxic respiratory failure related to acute COVID-19 related pneumonia, patient presented to the emergency department on 09/26/2021 with a one-week history of symptoms including fatigue, fever, worsening dyspnea, and cough. He is status post completed vaccination with 2 injections, no booster (unknown what type). Patient is a candidate for Remdesivir and was started on 09/26/2021 #2. Mild hyponatremia likely related to dehydration, resolved with IV hydration #3. Hypokalemia, improved #4. Elevated inflammatory markers related to the COVID-19 pneumonia, improved #5. Hypertension #6. Hyperlipidemia #7. Coronary artery disease with previous history of PCI and stenting #8. Previous history of CVA #9. Glaucoma #10. History of sleep apnea #11. Prostate disorder #12. Previous history of GI bleeding #13. Parkinson's #14. Previous history of UTIs and kidney stones #15. Elevated pro-, with Possibility of Bacterial Infection, Rule out possibility of underlying urinary tract infection Plan: Patient has completed his Remdesivir today Breathing currently, he is currently on room air, maintaining stable O2 saturations Vital signs stable, no fever or chills From pulmonary perspective she can be considered for discharge home today His pro-Level Is Improving and Is down to 0.43, His Inflammatory Markers Were Improving Patient can complete outpatient course of Decadron, and outpatient course of Augmentin Urinalysis was noted, showing no clear sign of infection Outpatient follow-up with Dr. Mora in the office in 2 weeks I performed a history & physical examination of the patient and discussed their management with my nurse practitioner, Asia Galan. I reviewed the nurse practitioner's note and agree with the documented findings and plan of care. Lung sounds are positive for diffuse rhonchi throughout the lung leon. The findings and the impression was discussed with the patient. I attest to the documentation by the nurse practitioner. Time with Patient: Less than 30
[2021-09-30 18:37] LABS: African American GFR (CKD) 115.3 (60.0-200.0); Anion Gap 14.3 mmol/L (10.00-18.00); Blood Urea Nitrogen 20.5 mg/dL (9.0-27.0); C Reactive Protein 2.2 mg/dL (0.00-0.80); Carbon Dioxide 20.7 mmol/L (20.0-27.5); Non-African American GFR(CKD) 99.5 (60.0-200.0); Potassium 3.7 mmol/L (3.5-5.5)
== END 2021-09-30 14:03 | disposition home or self-care (01) | DRG 177 ==
LOC: EC 10:46 → 4SSUR 14:02
PROVIDERS: ADMIT Internal Medicine Geriatric Medicine; ATTEND Internal Medicine Geriatric Medicine
PROC: XW033E5 Introduction of Remdesivir Anti-infective into Peripheral Vein, Percutaneous Approach, New Technology Group 5 (ICD-10-PCS; principal; 2021-09-27)
DX: U07.1 COVID-19 (principal); J12.82 Pneumonia due to coronavirus disease 2019; J96.01 Acute respiratory failure with hypoxia; E22.2 Syndrome of inappropriate secretion of antidiuretic hormone; J98.11 Atelectasis; E78.5 Hyperlipidemia, unspecified; E86.0 Dehydration; E87.6 Hypokalemia; F41.9 Anxiety disorder, unspecified; G20 Parkinson's disease; G25.81 Restless legs syndrome; G40.909 Epilepsy, unspecified, not intractable, without status epilepticus; H40.9 Unspecified glaucoma; I10 Essential (primary) hypertension; I25.10 Atherosclerotic heart disease of native coronary artery without angina pectoris; I69.392 Facial weakness following cerebral infarction; I73.9 Peripheral vascular disease, unspecified; M15.9 Polyosteoarthritis, unspecified; N40.1 Benign prostatic hyperplasia with lower urinary tract symptoms; R33.8 Other retention of urine; Z79.01 Long term (current) use of anticoagulants; Z79.52 Long term (current) use of systemic steroids; Z79.82 Long term (current) use of aspirin; Z79.899 Other long term (current) drug therapy; Z82.0 Family history of epilepsy and other diseases of the nervous system; Z82.3 Family history of stroke; Z82.49 Family history of ischemic heart disease and other diseases of the circulatory system; Z83.3 Family history of diabetes mellitus; Z86.711 Personal history of pulmonary embolism; Z86.718 Personal history of other venous thrombosis and embolism; Z87.440 Personal history of urinary (tract) infections; Z87.442 Personal history of urinary calculi; Z95.5 Presence of coronary angioplasty implant and graft; Z96.1 Presence of intraocular lens; Z96.642 Presence of left artificial hip joint; Z96.653 Presence of artificial knee joint, bilateral; Z96.0 Presence of urogenital implants
CPT/HCPCS: 36415; 71045; 80048; 80053; 81003; 82728; 83605; 83615; 83735; 84145; 85025; 85379; 85610; 85730; 86140; 87040; 87635; 93005; 94640; 96361; 96374; 99285

== ENCOUNTER 2022-07-21 13:24 | Emergency (ER) | payer MEDICARE ==
[2022-07-21] MEDS ORDERED: LABETALOL 5 MG/ML VIAL MDV IVP STA (13:32)
[2022-07-21] MEDS ORDERED: SODIUM CHLORIDE 0.9% 500 ML 500 ML IV STA (13:32)
[2022-07-21 13:36] VITALS: TEMP 97.5
[2022-07-21 13:36] LABS: Glucose,Whole Blood 149 mg/dL (70-110)
--- NOTE | 2022-07-21 13:42 | ED ---
General Adult HPI - General Chief complaint: Altered Mental Status Stated complaint: altered Time Seen by Provider: 07/21/22 13:24 Source: patient, RN notes reviewed, old records reviewed Mode of arrival: EMS Limitations: altered mental status, physical limitation - History of Present Illness Initial comments: This is an 86-year-old male who was last seen at his baseline at 11 PM last evening. states when he woke up this morning he was altered but it has worsened since that time. She is not here for elaboration on that condition. Patient was brought in by EMS EMS stated that he was able to follow simple commands in the rate and has become more alert when they gave him oxygen. Patient had a pulse ox of 80% when they arrived and he is now on a nonrebreather. Patient did tell me he had a headache but is unable to communicate much further but does follow simple commands. His baseline is patient is alert and oriented 4 - Related Data Home Medications Medication Instructions Recorded Confirmed Montelukast [Singulair] 10 mg PO HS 09/19/15 07/21/22 Ferrous Sulfate [Iron (65 MG 325 mg PO DAILY 07/14/18 07/21/22 Elemental)] Latanoprost/Pf [Latanoprost 0.005% 1 drop BOTH EYES HS 04/16/20 07/21/22 Eye Drop] Rosuvastatin Calcium 20 mg PO HS 04/16/20 07/21/22 Tamsulosin [Flomax] 0.4 mg PO DAILY 04/28/20 07/21/22 Rivaroxaban [Xarelto] 20 mg PO HS 05/19/20 07/21/22 Brimonidine Tartrate [Alphagan P 1 drop LEFT EYE BID 11/26/20 07/21/22 0.2% Ophth Soln] Escitalopram [Lexapro] 10 mg PO DAILY 11/26/20 07/21/22 Pramipexole [Mirapex] 1 mg PO DAILY@1700,2000 11/26/20 07/21/22 Buta/APAP/Caf/Cod 61-339-86-30 1 cap PO Q6H PRN MDD 4 CAPS 01/17/21 07/21/22 [Fioricet w/Cod 90-998-55-30MG] Carbidopa-Levodopa ER 25-100Mg 2 tab PO DAILY@0700 01/17/21 07/21/22 [Sinemet CR 25-100 mg] levETIRAcetam [Keppra] 500 mg PO BID 01/17/21 07/21/22 Aspirin EC [Ecotrin Low Dose] 81 mg PO DAILY 05/13/21 07/21/22 carvediloL [Coreg] 12.5 mg PO BID-W/MEALS 05/13/21 07/21/22 Fludrocortisone [Florinef] 0.1 mg PO DAILY 09/26/21 07/21/22 Losartan Potassium 100 mg PO DAILY 09/26/21 07/21/22 Potassium Chloride ER [K-Dur 10] 10 meq PO DAILY PRN 09/26/21 07/21/22 Timolol 0.5% Ophth Soln [Timoptic 1 drop LEFT EYE DAILY 09/26/21 07/21/22 0.5% Ophth Soln] amLODIPine [Norvasc] 5 mg PO DAILY 09/26/21 07/21/22 Atogepant [Qulipta] 10 mg PO DIRECTED 07/21/22 07/21/22 Carbidopa-Levodopa ER 25-100Mg 1 tab PO BID@1200,199907/21/22 07/21/22 [Sinemet CR 25-100 mg] Donepezil [Aricept] 5 mg PO HS 07/21/22 07/21/22 Furosemide [Lasix] 20 mg PO DAILY PRN 07/21/22 07/21/22 Allergies Allergy/AdvReac Type Severity Reaction Status Date / Time metoclopramide [From Reglan] AdvReac SHAKES Verified 07/21/22 15:11 oxycodone HCl AdvReac Nausea & Verified 07/21/22 15:11 [From OxyContin] Vomiting Review of Systems ROS Statement: Those systems with pertinent positive or pertinent negative responses have been documented in the HPI. ROS Other: All systems not noted in ROS Statement are negative. 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, multiple TIAs, parkinson's disease, neuralgia, neuropathy bilateral hands, legs and feet, thoracic spondylosis, prostrate cancer with surgery/chemo and radiation, UTIs, kidney stones, L eye glaucoma, PVD/bilateral lower extremity edema, caratid stenosis, aemia, bronchitis, lower GI bleed History of Any Multi-Drug Resistant Organisms: None Reported Past Surgical History: Adenoidectomy, Back Surgery, Heart Catheterization With Stent, Hernia Repair, Joint Replacement, Orthopedic Surgery, Prostate Surgery, Tonsillectomy Additional Past Surgical History / Comment(s): PCI with stent in 2012, prostate biopsies, laser vaporization of prostrate, bilateral inquinal hernia repairs, EGD/colonoscopy, supraorbital percutaneous nerve stimulator trial, epidural injections, low back surgery, R foot hammer toe surgery, bilateral total knee replacements, bilateral cataract removals/lens implants, hemorrhoidectomy, R side of head vein biopsy, left hip arthroplasty 2 weeks ago Past Anesthesia/Blood Transfusion Reactions: No Reported Reaction Additional Past Anesthesia/Blood Transfusion Reaction / Comment(s): Pt has received blood in past without reaction. Date of Last Stent Placement:: 2012 Past Psychological History: No Psychological Hx Reported Smoking Status: Never smoker Past Alcohol Use History: None Reported Past Drug Use History: None Reported - Past Family History Brother(s) Family Medical History: No Reported History Additional Family Medical History / Comment(s): Patient has 3 brothers with no major medical problems. Sister(s) Family Medical History: Hypertension Additional Family Medical History / Comment(s): Patient has 3 sisters that are all alive. 2 have high blood pressure. One has diabetes and stroke and is 81 years old. And all have history of tremors. Son(s) Family Medical History: No Reported History Additional Family Medical History / Comment(s): Patient has 3 sons and one daughter with no major medical problems. Father Family Medical History: Myocardial Infarction (MT) Additional Family Medical History / Comment(s): Father at age 73 with history of Parkinson's disease, bowel cancer, bone cancer. Mother Family Medical History: No Reported History, Myocardial Infarction (MT) Additional Family Medical History / Comment(s): Mother at age 85 with history of hypertension and dementia. General Exam - General Exam Comments Initial Comments: GENERAL: Patient is well-developed and well-nourished. Patient is nontoxic and well- hydrated and is in no acute distress. ENT: Neck is soft and supple. No significant lymphadenopathy is noted. Oropharynx is clear. Moist mucous membranes. Neck has full range of motion without eliciting any pain. EYES: The sclera were anicteric and conjunctiva were pink and moist. Patient's left eye has a medial gaze is unable to look fully laterally. Eyelids were unremarkable. PULMONARY: Unlabored respirations. Good breath sounds bilaterally. No audible rales rhonchi or wheezing was noted. CARDIOVASCULAR: There is a regular rate and rhythm without any murmurs gallops or rubs. ABDOMEN: Soft and nontender with normal bowel sounds. SKIN: Skin is clear with no lesions or rashes and otherwise unremarkable. NEUROLOGIC: Patient is alert and oriented 1. Patient knows his name patient is able to fo llow simple commands. Cranial nerves II through XII are grossly intact. Motor and sensory are also intact. Patient is very soft-spoken when he does say something so it's difficult to assess his speech. Patient has an NIH of 3. Patient has a GCS of 9 MUSCULOSKELETAL: Normal extremities with adequate strength and full range of motion. LYMPHATICS: No significant lymphadenopathy is noted PSYCHIATRIC: Normal psychiatric evaluation. Limitations: altered mental status, physical limitation Course Vital Signs 07/21/22 07/21/22 07/21/22 13:26 14:01 14:05 Temperature 97.5 F L Pulse Rate 73 68 67 Respiratory 18 20 20 Rate Blood Pressure 197/117 185/108 185/108 O2 Sat by Pulse 100 100 100 Oximetry 07/21/22 07/21/22 07/21/22 14:10 14:15 14:20 Temperature Pulse Rate 65 68 63 Respiratory 21 13 16 Rate Blood Pressure 192/111 195/111 194/113 O2 Sat by Pulse 100 100 100 Oximetry 07/21/22 07/21/22 07/21/22 14:25 14:30 14:35 Temperature Pulse Rate 64 64 64 Respiratory 16 15 14 Rate Blood Pressure 207/116 199/114 191/113 O2 Sat by Pulse 100 99 100 Oximetry 07/21/22 07/21/22 07/21/22 14:40 14:45 14:50 Temperature Pulse Rate 69 66 71 Respiratory 17 21 23 Rate Blood Pressure 194/109 204/113 200/108 O2 Sat by Pulse 99 100 99 Oximetry 1107/21/22 07/21/22 14:55 15:00 15:16 Temperature Pulse Rate 67 70 69 Respiratory 19 20 17 Rate Blood Pressure 166/94 144/82 144/75 O2 Sat by Pulse 99 96 Oximetry Medical Decision Making - Medical Decision Making EKG was interpreted by me. EKG shows sinus rhythm at 67 bpm ND interval 186 dresses 110 QT interval 449 QTC is 464. Patient's EKG shows no ST segment elevation or depression. CT of the brain was interpreted by me. The CT of the brain shows cerebellar bleed. CT angiogram was interpreted by me showed no obvious stenosis. Chest x-ray was interpreted by me x-ray showed good placement of the ET tube and no obvious infiltrates. I spoke with the neurointerventionalist twice about this patient he wanted the patient transferred to a [facility]. I spoke with the [facility] emergency department and they accepted transfer this patient. I gave the patient case center because of the blood thinner the patient was on. I also gave the patient mannitol started the patient on a 3% sodium drip and it attempt to decrease the intracranial pressure. Patient was given Cardene to bring down his pressure to a systolic blood pressure of around 150. Patient was monitored closely throughout his ED stay his GCS was consistently around 972 patient was not necessary is oxygenating in the high 90s. I reexamined the patient at least 4 occasions. I spoke with family members at least 3 occasions. I did review old charts on this patient to see what previous radiological studies were done. - Lab Data Result diagrams: 07/21/22 13:32 07/21/22 13:32 Lab Results 07/21/22 07/21/22 07/21/22 Range/Units 13:32 13:32 13:32 WBC 8.6 (3.8-10.6) k/uL RBC 4.40 (4.30-5.90) m/uL Hgb 13.7 (13.0-17.5) gm/dL Hct 40.4 (39.0-53.0) % MCV 91.8 (80.0-100.0) fL MCH 31.1 (25.0-35.0) pg MCHC 33.9 (31.0-37.0) g/dL RDW 12.8 (11.5-15.5) % Plt Count 212 (150-450) k/uL MPV 7.9 Neutrophils % 73 % Lymphocytes % 20 % Monocytes % 3 % Eosinophils % 1 % Basophils % 1 % Neutrophils # 6.3 (1.3-7.7) k/uL Lymphocytes # 1.7 (1.0-4.8) k/uL Monocytes # 0.3 (0-1.0) k/uL Eosinophils # 0.1 (0-0.7) k/uL Basophils # 0.1 (0-0.2) k/uL PT 11.3 (9.0-12.0) sec INR 1.1 (<1.2) APTT 26.4 (22.0-30.0) sec Sodium 137 (137-145) mmol/L Potassium 4.5 (3.5-5.1) mmol/L Chloride 102 (98-107) mmol/L Carbon Dioxide 23 (22-30) mmol/L Anion Gap 12 mmol/L BUN 23 H (9-20) mg/dL Creatinine 0.44 L (0.66-1.25) mg/dL Est GFR (CKD-EPI)AfAm >90 (>60 ml/min/1.73 sqM) Est GFR (CKD-EPI)NonAf >90 (>60 ml/min/1.73 sqM) Glucose 151 H (74-99) mg/dL POC Glucose (mg/dL) (70-110) mg/dL POC Glu White Metal Corrosion Proofer ID Calcium 8.7 (8.4-10.2) mg/dL Total Bilirubin 0.8 (0.2-1.3) mg/dL AST 39 (17-59) U/L ALT 17 (4-49) U/L Alkaline Phosphatase 141 H (38-126) U/L Troponin I (0.000-0.034) ng/mL Total Protein 7.2 (6.3-8.2) g/dL Albumin 4.3 (3.5-5.0) g/dL 07/21/22 07/21/22 Range/Units 13:32 13:34 WBC (3.8-10.6) k/uL RBC (4.30-5.90) m/uL Hgb (13.0-17.5) gm/dL Hct (39.0-53.0) % MCV (80.0-100.0) fL MCH (25.0-35.0) pg MCHC (31.0-37.0) g/dL RDW (11.5-15.5) % Plt Count (150-450) k/uL MPV Neutrophils % % Lymphocytes % % Monocytes % % Eosinophils % % Basophils % % Neutrophils # (1.3-7.7) k/uL Lymphocytes # (1.0-4.8) k/uL Monocytes # (0-1.0) k/uL Eosinophils # (0-0.7) k/uL Basophils # (0-0.2) k/uL PT (9.0-12.0) sec INR (<1.2) APTT (22.0-30.0) sec Sodium (137-145) mmol/L Potassium (3.5-5.1) mmol/L Chloride (98-107) mmol/L Carbon Dioxide (22-30) mmol/L Anion Gap mmol/L BUN (9-20) mg/dL Creatinine (0.66-1.25) mg/dL Est GFR (CKD-EPI)AfAm (>60 ml/min/1.73 sqM) Est GFR (CKD-EPI)NonAf (>60 ml/min/1.73 sqM) Glucose (74-99) mg/dL POC Glucose (mg/dL) 149 H (70-110) mg/dL POC Glu White Metal Corrosion Proofer Surjit Peñaloza Calcium (8.4-10.2) mg/dL Total Bilirubin (0.2-1.3) mg/dL AST (17-59) U/L ALT (4-49) U/L Alkaline Phosphatase (38-126) U/L Troponin I <0.012 (0.000-0.034) ng/mL Total Protein (6.3-8.2) g/dL Albumin (3.5-5.0) g/dL Critical Care Time Critical Care Time: Yes Total Critical Care Time: 45 Disposition Clinical Impression: Cerebellar bleed, Altered mental status Disposition: OTHER INSTITUTION NOT DEFINED Referrals: Louis Lawson MD [Primary Care Provider] - 1-2 days - Out of Hospital Transfer - Req. Specs Out of Hospital Transfer - Requested Specifics: Other Emergency Center ([facility])
[2022-07-21 13:47] LABS: Basophils # (A) 0.1 k/uL (0-0.2); Basophils % (A) 1 %; Eosinophils # (A) 0.1 k/uL (0-0.7); Eosinophils % (A) 1 %; HCT 40.4 % (39.0-53.0); HGB 13.7 gm/dL (13.0-17.5); Lymphocytes # (A) 1.7 k/uL (1.0-4.8); Lymphocytes % (A) 20 %; MCH 31.1 pg (25.0-35.0); MCHC 33.9 g/dL (31.0-37.0); MCV 91.8 fL (80.0-100.0); Mean Platelet Volume 7.9; Monocytes # (A) 0.3 k/uL (0-1.0); Monocytes % (A) 3 %; Neutrophils # (A) 6.3 k/uL (1.3-7.7); Neutrophils % (A) 73 %; Platelet Count 212 k/uL (150-450); RDW 12.8 % (11.5-15.5); WBC 8.6 k/uL (3.8-10.6)
[2022-07-21] MEDS ORDERED: LABETALOL SYRINGE 5 MG/ML IVP STA (13:48)
[2022-07-21 14:00] LABS: ALT 17 U/L (4-49); AST 39 U/L (17-59); African American GFR (CKD) >90 (>60 ml/min/1.73 sqM); Albumin 4.3 g/dL (3.5-5.0); Alkaline Phosphatase 141 U/L (38-126); Anion Gap 12 mmol/L; Blood Urea Nitrogen 23 mg/dL (9-20); Calcium 8.7 mg/dL (8.4-10.2); Carbon Dioxide 23 mmol/L (22-30); Chloride 102 mmol/L (98-107); Glucose 151 mg/dL (74-99); Non-African American GFR(CKD) >90 (>60 ml/min/1.73 sqM); Sodium 137 mmol/L (137-145); Total Bilirubin 0.8 mg/dL (0.2-1.3); Total Protein 7.2 g/dL (6.3-8.2)
[2022-07-21] MEDS ORDERED: Kcentra PER PHARMACY 1 EACH MISC MISCELLANE PRN (14:07)
--- NOTE | 2022-07-21 14:08 | CT ---
EXAMINATION TYPE: CT brain wo con DATE OF EXAM: 07/21/2022 COMPARISON: 05/12/2021 INDICATION: Neuro deficit acute stroke DLP: 1181 mGycm, Automated exposure control for dose reduction was used. CONTRAST: None CT of the brain is performed utilizing 3 mm thick sections through the posterior fossa and 3 mm thick sections through the remaining calvarium. Study is performed within [facility] There is an acute hemorrhage measuring approximately 4.5 x 4.0 x 3.9cm centered in the left cerebella r peduncle which appears to extend to the vermis. This appears to be intraparenchymal. Preliminary re sults were called to the emergency room physician Dr. Roa by Dr. Clay from 1353 hours 07/21/2022. There is effacement of the fourth ventricle. No lateral ventricle dilatation is evident. Temporal hor ns and minimal prominence slightly greater than the comparison study. Third ventricle is somewhat pro minent. Small amount of hemorrhage may be within the third ventricle posteriorly. There may be some r ight displacement of the fourth ventricle due to hemorrhage. There is effacement of the cerebellar katz lci. An artifact causes some limitation at the foramen magnum. No definite descent of the tonsils through the foramen magnum is evident. Some mass effect on the medulla oblongata may be present posteriorly. Basilar artery and bilateral middle cerebral artery densities appear similar. Basilar artery is somew hat prominent throughout its visualized course. Arterial Findings appear similar to the comparison. Patchy periventricular white matter hypodensity is present, likely on the basis of chronic white mat ter ischemic changes. Findings are similar to the 05/12/2021 exam. Ventricles and sulci are prominent for the patient age. Paranasal sinuses and mastoid air cells within the [id number] are clear. IMPRESSIONS: 1. Acute cerebellar hemorrhage with mass effect and effacement of the fourth ventricle. Hydrocephal us may be developing. There may be effacement of the posterior brainstem no herniation through the fo ramen magnum is evident at this time.
[2022-07-21 14:12] LABS: Potassium 4.5 mmol/L (3.5-5.1)
[2022-07-21] MEDS ORDERED: HUMAN PROTHROMBIN COMPLX 500 UNIT/16 ML VIAL IV ONE (14:15)
[2022-07-21] MEDS ORDERED: niCARdipine 20 MG in SODIUM CHLORIDE 0.9% 192 ML IV SCH (14:15)
[2022-07-21] MEDS ORDERED: MANNITOL 20% PMX 500 ML in SALINE 1 500ML.BAG IV ONE (14:15)
[2022-07-21] MEDS ORDERED: HUMAN PROTHROMBIN COMPLX IV ONE (14:15)
[2022-07-21 14:16] LABS: INR 1.1 (<1.2); Partial Thromboplastin Time 26.4 sec (22.0-30.0); Prothrombin Time 11.3 sec (9.0-12.0)
--- NOTE | 2022-07-21 14:18 | CT ---
EXAMINATION TYPE: CT angio head neck DATE OF EXAM: 07/21/2022 HISTORY: Acute onset neurodeficit COMPARISON: Prior CTA study November 26, [address] DLP: 600.7 mGycm. Automated Exposure Control for Dose Reduction was Utilized. TECHNIQUE: CTA scan of the head and neck is performed with IV Contrast, patient injected with 100 mL of Isovue 300, axial images are obtained, coronal and sagittal reformatted images are reviewed. 3D r econstructed images are created on an independent workstation and reviewed. FINDINGS: Carotid/Vascular Structures: Mild peripheral plaque in the aortic arch. Normal three-vessel origin wi thout significant stenosis, tortuous course to the proximal left common carotid artery is seen. No si gnificant plaque or stenosis in the common carotid arteries bilaterally. Mild to moderate peripheral calcified plaque right carotid bulb with more moderate to severe mixed plaque extending into the prox imal internal carotid artery redemonstrated. No greater than 50% stenosis seen. Moderate to severe mi xed plaque left carotid bulb extends into proximal internal carotid artery without significant stenos is. No significant change from prior. Patent external carotid arteries bilaterally without significan t plaque or stenosis. There are codominant vertebral arteries redemonstrated. Vertebral arteries are patent to the basilar junction. Patent Right posterior communicating artery redemonstrated. Hypoplastic left posterior comm unicating artery redemonstrated. No significant focal stenosis or aneurysm in the posterior circulati on. There is hypoplastic anteriorly communicating artery. No significant focal stenosis or aneurysm i n the anterior circulation. Other: Ascending aortic aneurysm up to 4.2 cm redemonstrated. Few prominent but subcentimeter lymph n odes throughout the mediastinum are redemonstrated. Slight scoliotic curvature on coronal images rede monstrated. Moderate disc space narrowing C5-C6 and C6-C7 levels redemonstrated. IMPRESSION: No significant stenosis in common or internal carotid arteries bilaterally. No new signi ficant stenosis or aneurysm at the level of the [place]. No significant change from most rec ent CTA study. NASCET criteria was used in interpretation of this exam?
[2022-07-21] MEDS ORDERED: SODIUM CHLORIDE 3%(HYPERTONIC) 500 ML IV ONE (14:30)
--- NOTE | 2022-07-21 15:09 | XR ---
EXAMINATION TYPE: XR chest 1V DATE OF EXAM: 07/21/2022 COMPARISON: 09/29/2021 HISTORY: Altered mental status TECHNIQUE: Single frontal view of the chest is obtained. FINDINGS: Bilateral lower lobe infiltrate and small left effusion. Prominence the right paratracheal region. Atherosclerotic change aorta. Heart size normal. Underlying COPD suspected. Diffuse osteopen ia with arthropathy of the shoulders. IMPRESSION: 1. Bilateral lower lobe infiltrate and small effusion greater on the left correlate for pneumonia.
[2022-07-21 15:27] VITALS: BP 144/75; PULSE 69; RESP 17
== END 2022-07-21 15:20 | disposition other institution (70) ==
LOC: EC 13:24
DX: I61.4 Nontraumatic intracerebral hemorrhage in cerebellum (principal); R41.82 Altered mental status, unspecified; I25.10 Atherosclerotic heart disease of native coronary artery without angina pectoris; K21.9 Gastro-esophageal reflux disease without esophagitis; E78.5 Hyperlipidemia, unspecified; I10 Essential (primary) hypertension; M19.90 Unspecified osteoarthritis, unspecified site; Z88.8 Allergy status to other drugs, medicaments and biological substances; Z88.5 Allergy status to narcotic agent; Z79.899 Other long term (current) drug therapy; Z79.82 Long term (current) use of aspirin
CPT/HCPCS: 36415; 93005; 80053; 84484; 85025; 85610; 85730; 71045; 70496; 70450; 70498; 99291; 96375; 96365; 96367; 96361; J7168; Q9967